=== PATIENT | male | born 1950 | race Caucasian/White ===

== ENCOUNTER 2018-01-02 21:48 | Inpatient (IN) | payer OTHER, MEDICARE ==
[~2018-01-02] VITALS: Ht 175.3 cm; Wt 93.3 kg
[2018-01-02 22:38] VITALS: BP 110/74; PULSE 112; RESP 18; TEMP 97.4; O2SAT 98
[2018-01-02 23:04] VITALS: BP 154/85; PULSE 99; RESP 18; O2SAT 100
--- NOTE | 2018-01-02 23:05 | PD ---
HPI Chief Complaint: General Weakness Time Seen by Provider: 22:54 Travel History International Travel<30 days: No Contact w/Intl Traveler<30days: No Traveled to known affect area: No History of Present Illness HPI The patient is a 67 year old male who presents to the [facility] emergency department with a history of lower extremity numbness and weakness that began on Wednesday. The patient reports a recent history of having a prostate biopsy due to an elevated PSA of 7, 6 days ago, on Wednesday by Dr. Juarez. The patient reports that he did well after the procedure and Wednesday was able to go to work , however Wednesday he began to have chills and fever with a T-max of 101. He reports that on the chills and fever became worse and then he developed the pain in the left side of his low back. On he saw his primary care physician's office and was treated for back pain with a muscle relaxer injection and a pain injection and discharged home with Flexeril. After starting the Flexeril he noticed the weakness in his legs and thought that it may be related to his muscle relaxer. Reports that in spite of stopping the Flexeril he continued to have worsening weakness and numbness. The patient reports that Wednesday he went back to his primary care physician and was told that it could be related to an infectious process and was started on Cipro. Today, the patient fell in the shower due to his weakness in his legs and went to [facility]. The patient was given a lidocaine patch to the left side of his low back, an IM injection of Decadron, Toradol, and morphine and Ativan orally for anxiety. The patient reports that he was then discharged. His partner who is providing most of his history he reports that he got home and then fell again in the driveway as he is unable to walk. The patient reports that he has not been able to urinate since 6 AM. He reports having a diminished appetite and decreased p.o. fluid intake over the last day. He denies having any diarrhea. He reports that he moved his bowels in small amount earlier today. He denies having any incontinence of his bowels. He denies having any incontinence of urine. On review of systems otherwise, the patient denies having any worsening cough or congestion, neck pain, chest pain, abdominal pain, weakness in his arms, numbness or tingling in his arms, facial droop, headache, dizziness, or difficulty with word finding ability. PFSH Past Medical History Narrative Medical The patient's past medical history is significant for benign prostatic hypertrophy, elevated PSA, hypothyroid disorder, depression, history of kidney stones. Depression: Yes Diminished Hearing: No Genitourinary: Yes (BPH) Thyroid Disease: Yes (hypothyiodism) Tetanus Vaccination: Unknown Influenza Vaccination: No Past Surgical History Narrative Surgical The patient's past surgical history is significant for a prostate biopsy, tonsillectomy, history of kidney surgery. Genitourinary Surgery: Yes (kidney surgery) Other Surgery: Yes (biopsy) Social History Alcohol Use: Yes (Occasional use) Tobacco Use: Yes (1 pack per day) Substance Use: No Allergies-Medications (Allergen,Severity, Reaction): Coded Allergies: No Known Allergies (Unverified , 01/02/18) Reported Meds & Prescriptions Reported Meds & Active Scripts Active Reported Hydrocodone-Acetaminophen 5-325 mg Tab 1 Tab PO Q4H PRN Tamsulosin (Tamsulosin HCl) 0.4 Mg Cap 0.4 Mg HS Meloxicam 7.5 Mg Tab 7.5 Mg PO BID Ciprofloxacin (Ciprofloxacin HCl) 500 Mg Tab 500 Mg PO BID Rosuvastatin (Rosuvastatin Calcium) 20 Mg Tab 20 Mg PO DAILY Medrol (Methylprednisolone) 4 Mg Tab 4 Mg PO DIRECTED Robaxin (Methocarbamol) 500 Mg Tab 500 Mg PO QID Review of Systems Except as stated in HPI: all other systems reviewed are Neg General / Constitutional: Positive: Fever, Chills Eyes: No: Visual changes HENT: No: Headaches Cardiovascular: No: Chest Pain or Discomfort Respiratory: No: Shortness of Breath Gastrointestinal: Positive: Constipation, No: Nausea, Vomiting, Diarrhea, Abdominal Pain Genitourinary: Positive: Decreased Urinary Output, Hesitancy, No: Dysuria Musculoskeletal: Positive: Myalgias, Pain Skin: No Rash Neurologic: Positive: Weakness (Bilateral leg), Sensory Disturbance, No: Focal Abnormalities, Change in Mentation, Slurred Speech Psychiatric: No: Depression Endocrine: No: Polydipsia Hematologic/Lymphatic: No: Easy Bruising Physical Exam Narrative General: The patient is a well-developed well-nourished male, uncomfortable appearing on arrival, tachypneic, reporting shortness of breath related to his back pain. Head and Neck exam: Head is normocephalic atraumatic. Eyes: EOMI, pupils are equal round and reactive to light. Nose: Midline septum with pink mucous membranes Mouth: Dentition unremarkable. Dry mucus membranes. Posterior oropharynx is not erythematous. No tonsillar hypertrophy. Uvula midline. Airway patent. Neck: No palpable lymphadenopathy. No nuchal rigidity. No thyromegaly. Cardiovascular: Sinus tachycardia in the low 100s without murmurs, gallops, or rubs. No pulse deficit to the extremities on simultaneous auscultation and palpation of his radial artery. Lungs: Clear to auscultation bilaterally. No wheezes, rhonchi, or rales. Abdomen: Soft, without tenderness to palpation in all 4 quadrants of the abdomen. No guarding, rebound, or rigidity. Normal bowel sounds are audible. No tenderness on palpation of McBurney's point. Negative Fisher sign. Extremities: No clubbing, cyanosis, or edema. 2+ pulses in all 4 extremities. Back: No spinous process tenderness to palpation. No step-off or crepitus. No erythema or ecchymosis. The patient reports tenderness on palpation along the left side of his sacrum. The patient has a patch in place which was removed. This was a lidocaine patch that was applied earlier this evening by [facility]. There is no underlying skin abnormality. No costovertebral angle tenderness to palpation. Neurologic Exam: Cranial nerves II through XII are intact, strength is 5/5 in bilateral upper extremities. Strength is 2/5 in bilateral lower extremities with only muscle contractures noted in bilateral quadriceps muscles. No deep tendon reflexes are elicited in bilateral lower extremities. The patient has no sensation noted with examination of his legs below the knees. Skin Exam: No rash noted. Intact skin that is warm and cool. The patient has mottled appearing skin of his lower extremities. The patient has poor skin turgor. Data Data Last Documented VS Vital Signs Date Time Temp Pulse Resp B/P (MAP) Pulse Ox O2 Delivery O2 Flow Rate FiO2 01/03/18 00:25 98.5 90 18 182/85 95 01/02/18 23:04 Room Air Orders Orders Electrocardiogram (01/02/18 23:02) Complete Blood Count With Diff (01/02/18 23:02) Comprehensive Metabolic Panel (01/02/18 23:02) Creatine Kinase (Cpk) (01/02/18 23:02) Ckmb (Isoenzyme) Profile (01/02/18 23:02) Troponin I (01/02/18 23:02) B-Type Natriuretic Peptide (01/02/18 23:02) Prothrombin Time / Inr (Pt) (01/02/18 23:02) Act Partial Throm Time (Ptt) (01/02/18 23:02) Blood Culture (01/02/18 23:02) C-Reactive Protein (Crp) (01/02/18 23:02) Lipase (01/02/18 23:02) Urinalysis - C+S If Indicated (01/02/18 23:) Westergren Sedimentation Rate (01/02/18 23:02) Magnesium (Mg) (01/02/18 23:02) Chest, Single Ap (01/02/18 23:02) Iv Access Insert/Monitor (01/02/18 23:02) Ecg Monitoring (01/02/18 23:02) Oximetry (01/02/18 23:02) Urinary Catheter Insert/Apply (01/02/18 23:02) Lactic Acid Sepsis Protocol (01/02/18 23:02) Ondansetron Inj (Zofran Inj) (01/02/18 23:24) Ondansetron Inj (Zofran Inj) (01/02/18 23:45) Sodium Chlor 0.9% 1000 Ml Inj (Ns 1000 M (01/02/18 23:45) Fibrinogen (01/02/18 23:45) Type And Screen (01/02/18 23:49) Blood Product Administration (01/02/18 23:49) CKMB (01/02/18 23:20) CKMB% (01/02/18 23:20) Urine Culture (01/02/18 23:35) Mri C Spine W/O Contrast (01/03/18 ) Mri T Spine W/O Contrast (01/03/18 ) Mri L Spine W/O Contrast (01/03/18 ) Sodium Chlor 0.9% 1000 Ml Inj (Ns 1000 M (01/03/18 01:45) Morphine Inj (Morphine Inj) (01/03/18 01:45) Admit Order (Ed Use Only) (01/03/18 01:54) Labs Laboratory Tests Test 01/02/18 23:20 01/02/18 23:35 01/03/18 01:40 01/03/18 01:42 White Blood Count 12.6 TH/MM3 Red Blood Count 4.89 MIL/MM3 Hemoglobin 15.8 GM/DL Hematocrit 44.6 % Mean Corpuscular Volume 91.3 FL Mean Corpuscular Hemoglobin 32.2 PG Mean Corpuscular Hemoglobin Concent 35.3 % Red Cell Distribution Width 13.5 % Platelet Count 18 TH/MM3 Mean Platelet Volume 8.9 FL CBC Comment AUTO DIFF Differential Total Cells Counted 100 Neutrophils % (Manual) 71 % Band Neutrophils % 19 % Lymphocytes % 4 % Monocytes % 4 % Neutrophils # (Manual) 11.6 TH/MM3 Metamyelocytes 2 % Differential Comment FINAL DIFF MANUAL Toxic Vacuolation PRESENT Platelet Estimate LOW Platelet Morphology Comment NORMAL Erythrocyte Sedimentation Rate 40 mm/hr Prothrombin Time 10.7 SEC Prothromb Time International Ratio 1.1 RATIO Activated Partial Thromboplast Time 24.5 SEC Blood Urea Nitrogen 69 MG/DL Creatinine 2.23 MG/DL Random Glucose 141 MG/DL Total Protein 9.3 GM/DL Albumin 2.7 GM/DL Calcium Level 9.3 MG/DL Magnesium Level 2.6 MG/DL Alkaline Phosphatase 321 U/L Aspartate Amino Transf (AST/SGOT) 61 U/L Alanine Aminotransferase (ALT/SGPT) 43 U/L Total Bilirubin 1.0 MG/DL Sodium Level 129 MEQ/L Potassium Level 3.7 MEQ/L Chloride Level 93 MEQ/L Carbon Dioxide Level 23.5 MEQ/L Anion Gap 13 MEQ/L Estimat Glomerular Filtration Rate 29 ML/MIN Lactic Acid Level 4.0 mmol/L 2.0 mmol/L Total Creatine Kinase 927 U/L Creatine Kinase MB 20.4 NG/ML Creatine Kinase MB % 2.2 % Troponin I LESS THAN 0.02 NG/ML C-Reactive Protein 33.30 MG/DL B-Type Natriuretic Peptide 44 PG/ML Lipase 112 U/L Urine Color YELLOW Urine Turbidity HAZY Urine pH 5.0 Urine Specific Levasy 1.017 Urine Protein 30 mg/dL Urine Glucose (UA) NEG mg/dL Urine Ketones NEG mg/dL Urine Occult Blood MOD Urine Nitrite NEG Urine Bilirubin NEG Urine Urobilinogen LESS THAN 2.0 MG/DL Urine Leukocyte Esterase MOD Urine RBC 2 /hpf Urine WBC 10 /hpf Urine Squamous Epithelial Cells <1 /hpf Urine Bacteria MOD /hpf Urine Hyaline Casts 30 /lpf Urine Granular Casts 26 /lpf Urine Mucus FEW /lpf Microscopic Urinalysis Comment CULTURE INDICATED Fibrinogen 750 mg/dL MDM Medical Decision Making Medical Screen Exam Complete: Yes Emergency Medical Condition: Yes Medical Record Reviewed: Yes Interpretation(s) Last Impressions Thoracic Spine MRI 01/03/18 0000 Signed Impressions: Service Date/Time: Wednesday, January 03, 2018 00:38 - CONCLUSION: Multilevel disc abnormalities. Severe canal stenosis at T2-3 and T5-6 with cord compression and mild signal changes in the cord at T2-3 and moderate signal changes within the cord at T5-6. Less severe changes at L2 additional levels as described. Harley Herrera MD Lumbar Spine MRI 01/03/18 0000 Signed Impressions: Service Date/Time: Wednesday, January 03, 2018 00:38 - CONCLUSION: Complete or near complete canal obliteration at L2-3, L3-4 and L4-5 with less severe compromise at L1-2 and T12-L1. Harley Herrera MD Cervical Spine MRI 01/03/18 0000 Signed Impressions: Service Date/Time: Wednesday, January 03, 2018 00:38 - CONCLUSION: Severe multilevel canal stenosis. Findings appear to be most critical at C4-5 and C5-6 where AP canal dimension is reduced to 4-5 mm, however also quite severe at C2-3 and C3-4. Harley Herrera MD Chest X-Ray 01/02/18 1664 Signed Impressions: Service Date/Time: Tuesday, January 02, 2018 23:11 - CONCLUSION: Mild basilar atelectasis or scarring. Harley Herrera MD Differential Diagnosis Epidural abscess with cord compression, versus epidural hematoma, versus discitis, versus cauda equina Narrative Course During the course of the patient's emergency department visit, the patient's history, examination, and differential diagnosis were reviewed with the patient. The patient was placed on a monitor and storage bin tender with oximetry and frequent blood pressure monitoring. The patient had IV access obtained and blood work sent for analysis. The patient had an EKG done on arrival that shows a sinus rhythm with a heart rate of 96, QRS duration is 113 ms, QTC [address] segment elevation is noted. A stat call was placed out to the neurosurgeon on-call at approximately 11:02 AM. I had previously ordered MRI of the T-spine and L-spine without contrast, however he recommended MRI of the T-spine, L- spine with and without contrast. Antibiotics at this point were held until further evaluation was done and possible operative care with culture. The patient has been on ciprofloxacin since Wednesday. The patient was initially provided normal saline 1 L IV fluid bolus which was repeated 1. Morphine for pain, Zofran for nausea. The patient's laboratory studies were reviewed and remarkable for a white count of 12.6, hemoglobin 15.8, platelets 18, neutrophils 71, bands 19. A platelet pheresis was ordered pending surgery. CMP is remarkable for sodium of 129, chloride 93, BUN 69, creatinine 2.23, glucose 141, magnesium 2.6, AST 61, alk phos 321. CPK is 927 with a normal MB percent, troponin I is less than 0.02. Lipase 112, C-reactive protein is elevated at 33.3, BNP is 44, lactic acid initially 4, repeat lactic acid is 2. PT PTT within normal limits, urinalysis shows moderate occult blood moderate leukocyte esterase 2 RBCs 10 WBCs, moderate bacteria, culture indicated. Given the patient's elevated creatinine, contrast MRI was canceled an MRI with out contrast was ordered. This was done through the MRI department. Radiology studies were reviewed and remarkable for a chest x-ray that shows mild basilar atelectasis or scarring. MRI of the C-spine shows severe multilevel canal stenosis findings appear to be most critical at C4-C5 C5-C6 where AP canal dimension is reduced to 4-5 mm however also quite severe at C2- C3 and C3-C4. T-spine MRI shows multilevel disc abnormalities severe canal stenosis at T2-3 T5-6 with cord compression and mild signal changes in the cord at T2-3 of moderate signal changes within the cord at T5-T6. Less severe changes at L2 additional levels as described in MRI. MRI of the lumbar spine reveals complete or near complete canal obliteration at L2-3 L3-L4 L4-L5 with less severe compromise at L 1 2 and T12-L1. I spoke to Dr. Chakraborty at 2:15 AM regarding this patient's MRI findings. He plans to take the patient emergently to the OR. The patient's case was discussed with Dr. Patton who did agree to admit the patient to the intensive care unit. The patient's results were discussed with the patient, including the plan of care. I explained that further testing and/ or monitoring is indicated based on the patient's history, examination, and/ or laboratory findings. Therefore, I recommended admission for additional evaluation. The patient expressed understanding and was agreeable with this plan. The patient was admitted to the hospital in critical condition and sent to a bed under the care of the radiation oncology therapist service. Critical Care Narrative Aggregate critical care time was 44 minutes. Time to perform other separately billable procedures was not included in the critical care time. My time did not include minutes spent treating any other patients simultaneously or on activities that did not directly contribute to the patient's treatment. The services I provided to this patient were to treat and/or prevent clinically significant deterioration that could result in: Progression of paralysis, versus respiratory failure from crystalloid resuscitation. I provided critical care services requiring my management, as noted below: Chart data review, documentation time, medication orders and management, vital sign assessments/reviewing monitor data, ordering and reviewing lab tests, ordering and interpreting/reviewing x-rays and diagnostic studies, care of the patient and discussion of the patient with the admitting physicians. Physician Communication Physician Communication The patient's case including history, pertinent physical examination findings, and laboratory studies were discussed with Dr. Chakraborty and Dr. Patton. It was agreed that the patient would be admitted to the radiation oncology therapist service. Diagnosis Primary Impression: Acute paraplegia Additional Impressions: Thrombocytopenia Acute renal failure Qualified Codes: N17.9 - Acute kidney failure, unspecified Urinary retention Admitting Information Admitting Physician Requests: Maryam Mathew MD Jan 02, 2018 23:05
[2018-01-02] MEDS ORDERED: TAMS0.4C4 (23:12)
[2018-01-02] MEDS ORDERED: HYDR-3516 PO (23:12)
[2018-01-02] MEDS ORDERED: MELO7.5T27 PO (23:12)
[2018-01-02] MEDS ORDERED: ROSU1TAB8 PO (23:12)
[2018-01-02] MEDS ORDERED: MEDR4TAB PO (23:12)
[2018-01-02] MEDS ORDERED: ROBA500T PO (23:12)
[2018-01-02] MEDS ORDERED: CIPR500T2 PO (23:12)
[2018-01-02] MEDS ORDERED: ONDANSETRON HCL 4 MG/2 ML VIAL ONE (23:24)
[2018-01-02 23:29] LABS: HEMATOCRIT 44.6 % (39.0-51.0); HEMOGLOBIN 15.8 GM/DL (13.0-17.0); MEAN CELL VOLUME 91.3 FL (80.0-100.0); MEAN CORPUSCULAR HEMOGLOBIN 32.2 PG (27.0-34.0); MEAN CORPUSCULAR HGB CONC 35.3 % (32.0-36.0); MEAN PLATELET VOLUME 8.9 FL (7.0-11.0); RED BLOOD COUNT 4.89 MIL/MM3 (4.50-5.90); RED CELL DISTRIBUTION WIDTH 13.5 % (11.6-17.2); WHITE BLOOD COUNT 12.6 TH/MM3 (4.0-11.0)
--- NOTE | 2018-01-02 23:34 | RADRPT ---
EXAM DATE/TIME: 01/02/2018 23:11 [facility] COMPARISON: No previous studies available for comparison. INDICATIONS : Weakness,fever, and back pain. MEDICAL HISTORY : None. SURGICAL HISTORY : None. ENCOUNTER: Initial ACUITY: 1 day PAIN SCORE: 0/10 LOCATION: Bilateral chest FINDINGS: There is slight asymmetric elevation left diaphragm. Mild atelectasis or scarring at the left lung ba se. Cardiac contours are grossly satisfactory for technique and projection. No significant effusion s uspected. Mild gaseous distention of bowel, mainly in the left upper quadrant. CONCLUSION: Mild basilar atelectasis or scarring. Hraley Herrera MD on January 02, 2018 at 23:31 Board Certified Radiologist. This report was verified electronically.
[2018-01-02 23:40] LABS: INTERNATIONAL NORMALIZED RATIO 1.1 RATIO; PROTHROMBIN TIME - PATIENT 10.7 SEC (9.8-11.6)
[2018-01-02 23:45] LABS: PLATELET COUNT 18 TH/MM3 (150-450)
[2018-01-02] MEDS ORDERED: SODIUM CHLOR 0.9% 1000 ML INJ 1,000 ML IV ONE (23:45)
[2018-01-02] MEDS ORDERED: ONDANSETRON HCL 4 MG/2 ML VIAL IV ONE (23:45)
[2018-01-02 23:57] LABS: ALBUMIN 2.7 GM/DL (3.4-5.0); ALT (GPT) 43 U/L (12-78); AST (GOT) 61 U/L (15-37); BICARBONATE 23.5 MEQ/L (21.0-32.0); BLOOD UREA NITROGEN 69 MG/DL (7-18); CALCIUM 9.3 MG/DL (8.5-10.1); CHLORIDE 93 MEQ/L (98-107); CREATININE 2.23 MG/DL (0.60-1.30); GLOMERULAR FILTRATION RATE 29 ML/MIN (>89); GLUCOSE,RANDOM 141 MG/DL (74-106); MAGNESIUM 2.6 MG/DL (1.5-2.5); SODIUM (NA) 129 MEQ/L (136-145)
[2018-01-03] VITALS (11 sets, daily range): BP systolic 98–182; BP diastolic 56–96; PULSE 89–104; RESP 16–20; TEMP 97.9–99.8; O2SAT 94–100
[2018-01-03 00:05] LABS: ALKALINE PHOSPHATASE 321 U/L (45-117); TOTAL PROTEIN 9.3 GM/DL (6.4-8.2); TROPONIN I LESS THAN 0.02 NG/ML (0.02-0.05)
[2018-01-03 00:06] LABS: BACTERIA, URINE MOD /hpf; BILIRUBIN, URINE NEG (NEG); BLOOD, URINE MOD (NEG); GLUCOSE,URINE NEG (NEG); HYALINE CAST, URINE 30 /lpf (RARE); KETONE, URINE NEG (NEG); MUCUS URINE FEW /lpf (OCC); NITRITE,URINE NEG (NEG); SQUAMOUS EPITHELIAL CELL URINE <1 /hpf (0-5); URINE COLOR YELLOW (YELLW/STRAW); URINE LEUKOCYTE ESTERASE MOD (NEG)
[2018-01-03 01:12] LABS: BANDS 19 % (0-6); LYMPHOCYTES 4 % (9-44); METAMYELOCYTES 2 % (0-1); MONOCYTES 4 % (0-8); NEUTROPHIL # MANUAL DIFF 11.6 TH/MM3 (1.8-7.7); POLYS (SEG NEUTROPHILS) 71 % (16-70)
[2018-01-03 01:14] LABS: TOXIC VACUOLATION PRESENT (NONE SEEN)
--- NOTE | 2018-01-03 01:21 | RADRPT ---
EXAM DATE/TIME: 01/03/2018 00:38 [facility] COMPARISON: No previous studies available for comparison. INDICATIONS : Inability to ambulate. cord compression. MEDICAL HISTORY : Renal insufficiency. SURGICAL HISTORY : Tonsillectomy. Kidney surgery. ENCOUNTER: Initial ACUITY: 1 week PAIN SCORE: 0/10 LOCATION: [facility] TECHNIQUE: Multiplanar, multisequence MRI examination of the cervical spine was performed. FINDINGS: VERTEBRAE: Normal vertebral body height. Mild degenerative-type marrow signal changes.. ALIGNMENT: No evidence of subluxation. CORD: Normal configuration and signal. POST FOSSA: The cerebellar tonsils are normal in position. C2-C3: Broad dorsal disc protrusion. Dorsal ligamentous hypertrophy. Severe concentric canal stenosis. C3-C4: Broad dorsal disc protrusion, moderately asymmetric to the right with dorsal ligament is hypertrophie d. Severe concentric canal stenosis and severe asymmetrically right-sided foraminal stenosis. C4-C5: Broad dorsal disc protrusion. Dorsal ligament is hypertrophied. Cortical concentric canal stenosis an d bilateral foraminal stenosis. C5-C6: Broad dorsal disc protrusion. Dorsal ligament is hypertrophied. Severe concentric canal stenosis and severe bilateral foraminal stenosis. C6-C7: Broad dorsal disc protrusion. Mild dorsal ligament is hypertrophied. Slight degree of concentric tylor l stenosis. Moderate asymmetrically right-sided foraminal stenosis. C7-T1: Mild dorsal disc protrusion. Moderate dorsal ligamentous hypertrophy. Mild concentric canal stenosis. CONCLUSION: Severe multilevel canal stenosis. Findings appear to be most critical at C4-5 and C5-6 where AP canal dimension is reduced to 4-5 mm, however also quite severe at C2-3 and C3-4. Harley Herrera MD on January 03, 2018 at 1:14 Board Certified Radiologist. This report was verified electronically.
--- NOTE | 2018-01-03 01:30 | RADRPT ---
EXAM DATE/TIME: 01/03/2018 00:38 [facility] COMPARISON: No previous studies available for comparison. INDICATIONS : Inability to ambulate. cord compression. MEDICAL HISTORY : Renal insufficiency. SURGICAL HISTORY : Tonsillectomy. Kidney surgery. ENCOUNTER: Initial ACUITY: 1 week PAIN SCORE: 0/10 LOCATION: Paraspinal TECHNIQUE: Multiplanar multisequence MRI of the thoracic spine was performed. FINDINGS: VERTEBRA: Normal vertebral body height. Homogeneous marrow signal. ALIGNMENT: Normal. CORD: Multilevel compressive abnormalities with signal changes as will be discussed below T1-T2: Normal. T2-T3: Broad dorsal disc protrusion with moderate superimposed dorsal ligamentous hypertrophy. There is jaswinder re concentric canal stenosis with cord compression and early signal changes in the cord. T3-T4: Slight broad dorsal disc protrusion. T4-T5: Central disc protrusion moderately indenting ventral thecal sac. T5-T6: Broad moderate dorsal disc protrusion with moderate superimposed dorsal ligament hypertrophy contribu ting to severe concentric canal stenosis and cord compression. Moderate signal changes within the cor d. T6-T7: Broad central disc protrusion moderately indenting ventral thecal sac. T7-T8: Minimal broad dorsal disc protrusion. Slight dorsal ligament hypertrophy. T8-T9: Moderate broad central disc protrusion moderately indenting ventral thecal sac. T9-T10: Mild broad dorsal disc protrusion. T10-T11: The thecal sac has a normal diameter. No evidence of disc bulge or protrusion. T11-T12: Minimal broad dorsal disc protrusion, slightly asymmetric to the right T12-L1: Annular disc bulge with moderate broad superimposed dorsal disc protrusion with extrusion component e xtending inferiorly along the posterior aspect of L1. Moderate canal stenosis. CONCLUSION: Multilevel disc abnormalities. Severe canal stenosis at T2-3 and T5-6 with cord compression and mild signal changes in the cord at T2-3 and moderate signal changes within the cord at T5-6. Less severe c hanges at L2 additional levels as described. Harley Herrera MD on January 03, 2018 at 1:23 Board Certified Radiologist. This report was verified electronically.
--- NOTE | 2018-01-03 01:41 | RADRPT ---
EXAM DATE/TIME: 01/03/2018 00:38 [facility] COMPARISON: No previous studies available for comparison. INDICATIONS : Inability to ambulate. Cord compression. MEDICAL HISTORY : SURGICAL HISTORY : Tonsillectomy. Kidney surgery. ENCOUNTER: Initial ACUITY: 1 week PAIN SCORE: 0/10 LOCATION: Paraspinal TECHNIQUE: Multiplanar multisequence MRI of the lumbar spine was performed without contrast. FINDINGS: The most caudal appearing lumbar vertebra is numbered as L5. VERTEBRAE: Degenerative type marrow signal changes prominently present throughout.. Normal alignment. CONUS: Normal level and configuration. T12-L1: A annular disc bulge with broad undulating dorsal disc protrusion reason moderate canal stenosis. For jonh appear adequate. L1-L2: Annular disc bulge with broad moderate superimposed dorsal disc protrusion. Moderate dorsal ligament hypertrophy contribute to severe canal stenosis and asymmetrically right-sided foraminal stenosis. L2-L3: Annular disc bulge and brought superimposed dorsal disc protrusion area in visualization CSF signal i s obliterated. Severe bilateral foraminal stenosis. L3-L4: Annular disc bulge with broad superimposed dorsal disc protrusion. Dorsal ligaments I perched the con tribute to severe canal stenosis. Severe bilateral foraminal stenosis. L4-L5: Annular disc bulge with broad superimposed dorsal disc protrusion. Severe dorsal ligaments hypertroph y and facet hypertrophy contributing to severe concentric canal stenosis and severe asymmetrically ri ght-sided foraminal stenosis. L5-S1: The thecal sac has a normal diameter. No evidence of disc bulge or protrusion. The neural foramina are patent bilaterally. CONCLUSION: Complete or near complete canal obliteration at L2-3, L3-4 and L4-5 with less severe compromise at L1 -2 and T12-L1. Harley Herrera MD on January 03, 2018 at 1:34 Board Certified Radiologist. This report was verified electronically.
[2018-01-03] MEDS ORDERED: MORPHINE SULFATE 4 MG/ML INJ IV PUSH ONE (01:45)
[2018-01-03] MEDS ORDERED: SODIUM CHLOR 0.9% 1000 ML INJ 1,000 ML IV ONE (01:45)
[2018-01-03] MEDS ORDERED: LIDOCAINE 1%/EPINEPHrine 1:100,000 SOLN 30 ML VIAL ONE (02:50)
[2018-01-03] MEDS ORDERED: THROMBIN (TOPICAL) 5,000 UNIT VIAL ONE (02:50)
[2018-01-03] MEDS ORDERED: GELFOAM SIZE 100 ONE (02:51)
[2018-01-03] MEDS ORDERED: BUPIVACAINE HCL PF 0.25% 30 ML VIAL ONE ×2 (02:51→03:29)
[2018-01-03] MEDS ORDERED: GENTAMICIN SULFATE 80 MG/2 ML VIAL ONE (02:51)
[2018-01-03] MEDS ORDERED: BUPIVACAINE/EPINEPHRINE 0.5% PF 30 ML VIAL ONE (02:56)
--- NOTE | 2018-01-03 04:39 | HHI.HP ---
HPI Service Neurosurgery Primary Care Physician Jamin Latif MD History of Present Illness 67-year-old male who underwent a prostate biopsy one week ago, on 12/27/17. He states that on the evening of 12/29/17 on into the morning of 12/30/17, he developed fever and chills, low back pain, and lower extremity numbness and paresthesias and muscle spasm. He was seen by his primary care physician and was given medication including muscle relaxant. The symptoms persisted and he returned to his primary care physician on Wednesday , 01/01/18 and was given additional medications including Cipro. He awoke on 01/02/2018 with increased lower extremity weakness and numbness, and fell in the shower in the morning, after which he was unable to ambulate or lift his legs off the bed, and continued to experience pain in the lower back. He went to the emergency room at [facility], and was given additional medication injections. He states that he could not lift his legs off the bed or ambulate in the emergency room, and was taken out to his car and lifted into the car and sent home again. He fell in the driveway again trying to get back into the house. He apparently did not urinate for the entire day. He has no complaint of pain which is numbness paresthesias in the upper extremities. No numbness or paresthesias over the chest or abdomen or pelvic region. Review of Systems Constitutional: COMPLAINS OF: Fatigue, Fever, Chills Eyes: DENIES: Blurred vision Ears, nose, mouth, throat: DENIES: Vertigo, Throat pain Respiratory: DENIES: Cough Cardiovascular: DENIES: Chest pain, Palpitations Gastrointestinal: COMPLAINS OF: Constipation, DENIES: Abdominal pain, Diarrhea , Nausea Musculoskeletal: COMPLAINS OF: Muscle aches, Stiffness, Back pain, Neck pain, DENIES: Joint pain Neurologic: COMPLAINS OF: Abnormal gait, Paresthesias, DENIES: Headache Psychiatric: COMPLAINS OF: Anxiety Past Family Social History Allergies: Coded Allergies: No Known Allergies (Unverified , 01/02/18) Past Medical History No history of significant cardiac pulmonary gastrointestinal disease. History of prostate hypertrophy Hypothyroidism Depression Past Surgical History Tonsillectomy Prostate biopsy Kidney surgery Reported Medications Reported Meds & Active Scripts Active Reported Hydrocodone-Acetaminophen 5-325 mg Tab 1 Tab PO Q4H PRN Tamsulosin (Tamsulosin HCl) 0.4 Mg Cap 0.4 Mg HS Meloxicam 7.5 Mg Tab 7.5 Mg PO BID Ciprofloxacin (Ciprofloxacin HCl) 500 Mg Tab 500 Mg PO BID Rosuvastatin (Rosuvastatin Calcium) 20 Mg Tab 20 Mg PO DAILY Medrol (Methylprednisolone) 4 Mg Tab 4 Mg PO DIRECTED Robaxin (Methocarbamol) 500 Mg Tab 500 Mg PO QID Family History History father from "bone cancer" Social History He smokes 1 pack cigarettes a day Occasional alcohol No illicit drugs Physical Exam Vital Signs Vital Signs Date Time Temp Pulse Resp B/P (MAP) Pulse Ox O2 Delivery O2 Flow Rate FiO2 01/03/18 03:14 89 20 165/82 (109) 99 Room Air 01/03/18 00:25 98.5 90 18 182/85 95 01/03/18 00:10 97.9 91 18 161/96 99 01/02/18 23:04 99 18 154/85 (108) 100 Room Air 01/02/18 23:04 103 19 98 Room Air 01/02/18 22:38 97.4 112 18 110/74 (86) 98 Physical Exam GENERAL: Somewhat cachectic appearing male. SKIN: Decreased skin turgor. No significant rash HEAD: Atraumatic. Normocephalic. No temporal or scalp tenderness. EYES: Sclerae are clear and nonicteric ENT: No facial edema or ecchymosis. No periorbital edema. NECK: Trachea midline. Minimal cervical spine tenderness, which he states is chronic. CARDIOVASCULAR: Regular rate and rhythm without murmurs, gallops, or rubs. RESPIRATORY: Clear to auscultation. Breath sounds equal bilaterally. No wheezes , rales, or rhonchi. GASTROINTESTINAL: Abdomen soft, non-tender, nondistended. No hepato-splenomegaly , or palpable masses. No guarding. MUSCULOSKELETAL: Extremities without cyanosis, or edema. No joint tenderness, or edema noted. No calf tenderness. Dorsalis pedis pulses 2+ bilateral NEUROLOGICAL: Awake and alert Oriented X 3 Speech is clear Conversant and appropriate Follow simple commands well Answers questions appropriately Reasonable judgment and insight Recent and remote memory are intact Appears somewhat depressed, blunted affect. Pupils are equal and reactive to accommodation. Extra-ocular movements, visual pederson to confrontation, facial sensorimotor, tongue, palate, sternocleidomastoid testing, hearing to finger rub testing, and bilateral shoulder shrug are all intact. Sensation is intact to light touch in the upper extremities. He has mild to moderate loss of sensation in the mid to upper thighs diffuse, with absent sensation diffuse to light touch in the distal lower extremities. Motor testing in the upper extremities reveals 4+/5 deltoids and biceps with 4 right, 2+ left triceps, 4 right, 3 left wrist flexors and extensors, 3+ bilateral hand intrinsics and abductor digiti quinti minimi. In the lower extremities motor testing reveals 1-to/5 iliopsoas, 1/5 quadriceps and hamstrings, absent tibialis anterior and gastrocsoleus bilateral Luanne's absent bilaterally No ankle clonus Plantar responses absent bilateral Fine motor movements intact upper extremities Laboratory Laboratory Tests Test 01/02/18 23:20 01/02/18 23:35 01/03/18 01:40 01/03/18 01:42 White Blood Count 12.6 Red Blood Count 4.89 Hemoglobin 15.8 Hematocrit 44.6 Mean Corpuscular Volume 91.3 Mean Corpuscular Hemoglobin 32.2 Mean Corpuscular Hemoglobin Concent 35.3 Red Cell Distribution Width 13.5 Platelet Count 18 Mean Platelet Volume 8.9 CBC Comment AUTO DIFF Differential Total Cells Counted 100 Neutrophils % (Manual) 71 Band Neutrophils % 19 Lymphocytes % 4 Monocytes % 4 Neutrophils # (Manual) 11.6 Metamyelocytes 2 Differential Comment FINAL DIFF MANUAL Toxic Vacuolation PRESENT Platelet Estimate LOW Platelet Morphology Comment NORMAL Erythrocyte Sedimentation Rate 40 Prothrombin Time 10.7 Prothromb Time International Ratio 1.1 Activated Partial Thromboplast Time 24.5 Blood Urea Nitrogen 69 Creatinine 2.23 Random Glucose 141 Total Protein 9.3 Albumin 2.7 Calcium Level 9.3 Magnesium Level 2.6 Alkaline Phosphatase 321 Aspartate Amino Transf (AST/SGOT) 61 Alanine Aminotransferase (ALT/SGPT) 43 Total Bilirubin 1.0 Sodium Level 129 Potassium Level 3.7 Chloride Level 93 Carbon Dioxide Level 23.5 Anion Gap 13 Estimat Glomerular Filtration Rate 29 Lactic Acid Level 4.0 2.0 Total Creatine Kinase 927 Creatine Kinase MB 20.4 Creatine Kinase MB % 2.2 Troponin I LESS THAN 0.02 C-Reactive Protein 33.30 B-Type Natriuretic Peptide 44 Lipase 112 Urine Color YELLOW Urine Turbidity HAZY Urine pH 5.0 Urine Specific [place] 1.017 Urine Protein 30 Urine Glucose (UA) NEG Urine Ketones NEG Urine Occult Blood MOD Urine Nitrite NEG Urine Bilirubin NEG Urine Urobilinogen LESS THAN 2.0 Urine Leukocyte Esterase MOD Urine RBC 2 Urine WBC 10 Urine Squamous Epithelial Cells <1 Urine Bacteria MOD Urine Hyaline Casts 30 Urine Granular Casts 26 Urine Mucus FEW Microscopic Urinalysis Comment CULTURE INDICATED Fibrinogen 750 Test 01/03/18 02:25 Platelet Count 28 Date/Time Source Procedure Growth Status 01/02/18 23:20 Blood Peripheral Aerobic Blood Culture Pending Received 01/02/18 23:20 Blood Peripheral Anaerobic Blood Culture Pending Received 01/02/18 23:35 Urine Clean Catch Urine Culture Pending Received Result Diagram: 01/03/185 01/02/182319 Imaging Cervical thoracic and lumbar spine MRI images are reviewed. Agree with findings as noted below. Thoracic Spine MRI 01/03/18 0000 Signed Impressions: Service Date/Time: Wednesday, January 03, 2018 00:38 - CONCLUSION: Multilevel disc abnormalities. Severe canal stenosis at T2-3 and T5-6 with cord compression and mild signal changes in the cord at T2-3 and moderate signal changes within the cord at T5-6. Less severe changes at L2 additional levels as described. Harley Herrera MD Lumbar Spine MRI 01/03/18 0000 Signed Impressions: Service Date/Time: Wednesday, January 03, 2018 00:38 - CONCLUSION: Complete or near complete canal obliteration at L2-3, L3-4 and L4-5 with less severe compromise at L1-2 and T12-L1. Harley Herrera MD Cervical Spine MRI 01/03/18 0000 Signed Impressions: Service Date/Time: Wednesday, January 03, 2018 00:38 - CONCLUSION: Severe multilevel canal stenosis. Findings appear to be most critical at C4-5 and C5-6 where AP canal dimension is reduced to 4-5 mm, however also quite severe at C2-3 and C3-4. Harley Herrera MD Chest X-Ray 01/02/18 [id number] Signed Impressions: Service Date/Time: Tuesday, January 02, 2018 23:11 - CONCLUSION: Mild basilar atelectasis or scarring. MD Gualberto Underwood VTE Risk Assessment Caprini VTE Risk Assessment: Mod/High Risk (score >= 2) VTE Pharm Contraindication: Spinal surgery Caprini Risk Assessment Model Point Value = 1 Point Value = 2 Point Value = 3 Point Value = 5 Age 41-60 Minor surgery BMI > 25 kg/m2 Swollen legs Varicose veins or History of unexplained or recurrent spontaneous Oral contraceptives or hormone replacement Sepsis (< 1 month) Serious lung disease, including pneumonia (< 1 month) Abnormal pulmonary function Acute myocardial infarction Congestive heart failure (< 1 month) History of inflammatory bowel disease Medical patient at bed rest Age 61-74 Arthroscopic surgery Major open surgery (> 45 min) Laparoscopic surgery (> 45 min) Malignancy Confined to bed (> 72 hours) Immobilizing plaster cast Central venous access Age >= 75 History of VTE Family history of VTE Factor V Leiden Prothrombin [id number] Lupus anticoagulant Anticardiolipin antibodies Elevated serum homocysteine Heparin-induced thrombocytopenia Other congenital or acquired thrombophilia Stroke (< 1 month) Elective arthroplasty Hip, pelvis, or leg fracture Acute spinal cord injury (< 1 month) Prophylaxis Regimen Total Risk Factor Score Risk Level Prophylaxis Regimen 0-1 Low Early ambulation 2 Moderate Order ONE of the following: *Sequential Compression Device (SCD) *Heparin 5000 units SQ BID 3-4 Higher Order ONE of the following medications: *Heparin 5000 units SQ TID *Enoxaparin/Lovenox 40 mg SQ daily (WT < 150 kg, CrCl > 30 mL/min) *Enoxaparin/Lovenox 30 mg SQ daily (WT < 150 kg, CrCl > 10-29 mL/min) *Enoxaparin/Lovenox 30 mg SQ BID (WT < 150 kg, CrCl > 30 mL/min) AND/OR *Sequential Compression Device (SCD) 5 or more Highest Order ONE of the following medications: *Heparin 5000 units SQ TID (Preferred with Epidurals) *Enoxaparin/Lovenox 40 mg SQ daily (WT < 150 kg, CrCl > 30 mL/min) *Enoxaparin/Lovenox 30 mg SQ daily (WT < 150 kg, CrCl > 10-29 mL/min) *Enoxaparin/Lovenox 30 mg SQ BID (WT < 150 kg, CrCl > 30 mL/min) AND *Sequential Compression Device (SCD) Assessment and Plan Assessment and Plan Impression: 1. Severe progressive paraplegia. Although he has significant spinal stenosis in the cervical thoracic and lumbar region, his overall presentation and exam suggests that the lumbar stenosis is the immediate cause of his severe lower extremity deficit, positive cauda equina syndrome. 2. Possible sepsis 3. Acute kidney disease 4. Thrombocytopenia Plan: Findings were discussed at length with the patient and his partner His recommended he proceed on an urgent basis to surgery for lumbar spine laminectomy for decompression. I advised him that I cannot totally rule out a component of myelopathy from the cervical and thoracic cord compression. He also understands that even with spinal cord intraoperative monitoring that there is a chance of cervical and thoracic myelopathy progressing during surgery. The procedure of lumbar decompressive laminectomy has been discussed. Risks and possible complications fully explained I advised him that there is no guarantee of any recovery of function with surgery. He will be admitted to the intensive surgical care unit postoperatively with account advisor consult. Additional platelets in the perioperative period. Jerry Chakraborty MD Jan 03, 2018 04:39
[2018-01-03] MEDS ORDERED: SODIUM CHLORIDE 0.9% FLUSH 10 ML FLUSH IV FLUSH PRN (05:00)
[2018-01-03] MEDS ORDERED: CHLORHEXIDINE GLUCONATE 2 % 1 PACK (2 CLOTHS) TOP PRN (05:00)
[2018-01-03] MEDS ORDERED: ONDANSETRON HCL 4 MG/2 ML VIAL IV PUSH PRN (05:00)
[2018-01-03] MEDS ORDERED: MISCELLANEOUS NURSING INFORMATION XX SCH (05:00)
[2018-01-03] MEDS ORDERED: TEMAZEPAM 15 MG CAP PO PRN (05:00)
[2018-01-03] MEDS ORDERED: RESP: ALBUTEROL 2.5 MG/IPRATROPIUM 0.5 MG NEB (PRN) INH (05:00)
[2018-01-03] MEDS ORDERED: LACTULOSE SYRUP 20 GM/30 ML CUP PO PRN (05:00)
[2018-01-03] MEDS ORDERED: BISACODYL 10 MG SUPP RECTAL PRN (05:00)
[2018-01-03] MEDS ORDERED: SENNOSIDES 8.6 MG TAB PO PRN (05:00)
--- NOTE | 2018-01-03 05:10 | HHI.HP ---
[facility] Service Critical Care Medicine Primary Care Physician Jamin Latif MD Admission Diagnosis Cord Compression, Renal Failure, Thrombocytopenia Diagnosis: Travel History International Travel<30 Days: No Contact w/Intl Traveler <30 Da: No Traveled to Known Affected Are: No History of Present Illness 67-year-old male who underwent a prostate biopsy one week ago, on 12/27/17. On the evening of 12/29/17 he developed fever and chills, low back pain, and lower extremity numbness and paresthesias and muscle spasm. He was seen by his primary care physician and was given medication including muscle relaxant. The symptoms persisted and he returned to his primary care physician on Wednesday, and was given additional medications including Cipro. He awoke on 01/02/2018 with increased lower extremity weakness and numbness, and fell in the shower in the morning, after which he was unable to ambulate or lift his legs off the bed, and continued to experience pain in the lower back. He went to the emergency room at [facility], and was given additional medication injections. He could not lift his legs off the bed or ambulate in the emergency room, and was taken out to his car and lifted into the car and sent home again. He fell in the driveway again trying to get back into the house. He apparently did not urinate for the entire day. He has no complaint of pain which is numbness paresthesias in the upper extremities. No numbness or paresthesias over the chest or abdomen or pelvic region. The MRI of thoracic spine shows severe canal stenosis at T2-3 and T5-6 level with cord compressions, complete or near complete canal obliteration at L2 -3 L3-4 and severe multilevel canal stenosis of the C-spine. The patient is emergently taken to operating room by Dr. Chakraborty. Review of Systems Constitutional: COMPLAINS OF: Diaphoretic episodes, Fatigue, Fever, Chills, Dizziness, Night Sweats, DENIES: Weight gain, Weight loss, Change in appetite Endocrine: DENIES: Heat/cold intolerance, Polydipsia, Polyuria, Polyphagia Eyes: DENIES: Blurred vision, Diplopia, Eye inflammation, Eye pain, Vision loss , Photosensitivity, Double Vision Ears, nose, mouth, throat: DENIES: Tinnitus, Hearing loss, Vertigo, Nasal discharge, Oral lesions, Throat pain, Hoarseness, Ear Pain, Running Nose, Epistaxis, Sinus Pain, Toothache, Odynophagia Respiratory: DENIES: Apneas, Cough, Snoring, Wheezing, Hemoptysis, Sputum production, Shortness of breath Cardiovascular: DENIES: Chest pain, Palpitations, Syncope, Dyspnea on Exertion , PND, Lower Extremity Edema, Orthopnea, Claudication Gastrointestinal: DENIES: Abdominal pain, Black stools, Bloody stools, Constipation, Diarrhea, Nausea, Vomiting, Difficulty Swallowing, Anorexia Genitourinary: DENIES: Sexual dysfunction, Urinary frequency, Urinary incontinence, Urgency, Hematuria, Dysuria, Nocturia, Penile Discharge, Testicular Pain, Testicular Swelling Musculoskeletal: COMPLAINS OF: Joint pain, Muscle aches, DENIES: Stiffness, Joint Swelling, Back pain, Neck pain Integumentary: DENIES: Abnormal pigmentation, Nail changes, Pruritus, Rash Hematologic/lymphatic: DENIES: Bruising, Lymphadenopathy Immunologic/allergic: DENIES: Eczema, Urticaria Neurologic: COMPLAINS OF: Abnormal gait, Localized weakness, Paresthesias, Poor Balance, DENIES: Headache, Seizures, Speech Problems, Tremor Psychiatric: DENIES: Anxiety, Confusion, Mood changes, Depression, Hallucinations, Agitation, Suicidal Ideation, Homicidal Ideation, Delusions Past Family Social History Allergies: Coded Allergies: No Known Allergies (Unverified , 01/02/18) Past Medical History Depression: Yes Genitourinary: Yes (BPH) Thyroid Disease: Yes (hypothyiodism) Past Surgical History The patient's past surgical history is significant for a prostate biopsy, tonsillectomy, history of kidney surgery. Genitourinary Surgery: Yes (kidney surgery) Other Surgery: Yes (biopsy) Reported Medications Reported Meds & Active Scripts Active Reported Hydrocodone-Acetaminophen 5-325 mg Tab 1 Tab PO Q4H PRN Tamsulosin (Tamsulosin HCl) 0.4 Mg Cap 0.4 Mg HS Meloxicam 7.5 Mg Tab 7.5 Mg PO BID Ciprofloxacin (Ciprofloxacin HCl) 500 Mg Tab 500 Mg PO BID Rosuvastatin (Rosuvastatin Calcium) 20 Mg Tab 20 Mg PO DAILY Medrol (Methylprednisolone) 4 Mg Tab 4 Mg PO DIRECTED Robaxin (Methocarbamol) 500 Mg Tab 500 Mg PO QID Active Ordered Medications Current Medications Medications (Trade) Dose Ordered Sig/Kaveh Route PRN Reason Start Time Stop Time Status Last Admin Dose Admin Methocarbamol (Robaxin) 500 mg QID PO 01/03/18 09:00 Tamsulosin HCl (Flomax) 0.4 mg HS PO 01/03/18 21:00 Atorvastatin Calcium (Lipitor) 40 mg DAILY PO 01/03/18 09:00 Sodium Chloride 1,000 ml @ 84 mls/hr [id number] IV 01/03/18 04:50 Sodium Chloride (NS Flush) 2 ml UNSCH PRN IV FLUSH FLUSH AFTER USING IV ACCESS 01/03/18 05:00 Sodium Chloride (NS Flush) 2 ml BID IV FLUSH 01/03/18 09:00 Acetaminophen (Tylenol) 650 mg Q6H PRN PO PAIN 1-5 AND/OR FEVER >101F 01/03/18 05:00 Morphine Sulfate (Morphine Inj) 2 mg Q2H PRN IV PUSH PAIN SCALE 6 TO 10 01/03/18 05:00 Famotidine (Pepcid Inj) 20 mg Q12HR IV PUSH 01/03/18 09:00 UNV Ondansetron HCl (Zofran Inj) 4 mg Q6H PRN IV PUSH NAUSEA OR VOMITING 01/03/18 05:00 UNV Temazepam (Restoril) 15 mg HS PRN PO INSOMNIA 01/03/18 05:00 UNV Albuterol/ Ipratropium (Duoneb Neb) 1 ampule Q2HR NEB PRN INH WHEEZING 01/03/18 05:00 UNV Enoxaparin Sodium (Lovenox Inj) 40 mg Q24H SQ 01/03/18 05:00 UNV Miscellaneous Information 1 [id number] XX 01/03/18 05:00 UNV Chlorhexidine Gluconate (Chlorhexidine 2% Cloth) 3 pack Taper DAILY@04 TOP 01/04/18 04:00 12/31/18 03:59 UNV Chlorhexidine Gluconate (Chlorhexidine 2% Cloth) 3 pack UNSCH PRN TOP HYGIENIC CARE 01/03/18 05:00 UNV Senna/Docusate Sodium (Roxana-Colace) 1 tab BID PO 01/03/18 09:00 UNV Magnesium Hydroxide (Milk Of Magnesia Liq) 30 ml Q12H PRN PO Mild constipation 01/03/18 05:00 UNV Sennosides (Senokot) 17.2 mg Q12H PRN PO Moderate constipation 01/03/18 05:00 UNV Bisacodyl (Dulcolax Supp) 10 mg DAILY PRN RECTAL SEVERE CONSITIPATION 01/03/18 05:00 UNV Lactulose (Lactulose Liq) 30 ml DAILY PRN PO SEVERE CONSITIPATION 01/03/18 05:00 UNV Family History No family history significant of early coronary artery disease Social History Alcohol Use: Yes (Occasional use) Tobacco Use: Yes (1 pack per day) Substance Use: No Physical Exam Vital Signs Vital Signs Date Time Temp Pulse Resp B/P (MAP) Pulse Ox O2 Delivery O2 Flow Rate FiO2 01/03/18 03:14 89 20 165/82 (109) 99 Room Air 01/03/18 00:25 98.5 90 18 182/85 95 01/03/18 00:10 97.9 91 18 161/96 99 01/02/18 23:04 99 18 154/85 (108) 100 Room Air 01/02/18 23:04 103 19 98 Room Air 01/02/18 22:38 97.4 112 18 110/74 (86) 98 Physical Exam GENERAL: Well-nourished, well-developed patient. SKIN: Warm and dry. HEAD: Normocephalic. EYES: No scleral icterus. No injection or drainage. NECK: Supple, trachea midline. No JVD or lymphadenopathy. CARDIOVASCULAR: Regular rate and rhythm without murmurs, gallops, or rubs. RESPIRATORY: Breath sounds equal bilaterally. No accessory muscle use. GASTROINTESTINAL: Abdomen soft, non-tender, nondistended. MUSCULOSKELETAL: No cyanosis, or edema. BACK: No spinous process tenderness to palpation. No step-off or crepitus. No erythema or ecchymosis. The patient reports tenderness on palpation along the left side of his sacrum. The patient has a patch in place which was removed. This was a lidocaine patch that was applied earlier this evening by [facility]. There is no underlying skin abnormality. No costovertebral angle tenderness to palpation. NEURO EXAM: Cranial nerves II through XII are intact, strength is 5/5 in bilateral upper extremities. Strength is 2/5 in bilateral lower extremities with only muscle contractures noted in bilateral quadriceps muscles. No deep tendon reflexes are elicited in bilateral lower extremities. The patient has no sensation noted with examination of his legs below the knees. Laboratory Laboratory Tests Test 01/02/18 23:20 01/02/18 23:35 01/03/18 01:40 01/03/18 01:42 White Blood Count 12.6 Red Blood Count 4.89 Hemoglobin 15.8 Hematocrit 44.6 Mean Corpuscular Volume 91.3 Mean Corpuscular Hemoglobin 32.2 Mean Corpuscular Hemoglobin Concent 35.3 Red Cell Distribution Width 13.5 Platelet Count 18 Mean Platelet Volume 8.9 CBC Comment AUTO DIFF Differential Total Cells Counted 100 Neutrophils % (Manual) 71 Band Neutrophils % 19 Lymphocytes % 4 Monocytes % 4 Neutrophils # (Manual) 11.6 Metamyelocytes 2 Differential Comment FINAL DIFF MANUAL Toxic Vacuolation PRESENT Platelet Estimate LOW Platelet Morphology Comment NORMAL Erythrocyte Sedimentation Rate 40 Prothrombin Time 10.7 Prothromb Time International Ratio 1.1 Activated Partial Thromboplast Time 24.5 Blood Urea Nitrogen 69 Creatinine 2.23 Random Glucose 141 Total Protein 9.3 Albumin 2.7 Calcium Level 9.3 Magnesium Level 2.6 Alkaline Phosphatase 321 Aspartate Amino Transf (AST/SGOT) 61 Alanine Aminotransferase (ALT/SGPT) 43 Total Bilirubin 1.0 Sodium Level 129 Potassium Level 3.7 Chloride Level 93 Carbon Dioxide Level 23.5 Anion Gap 13 Estimat Glomerular Filtration Rate 29 Lactic Acid Level 4.0 2.0 Total Creatine Kinase 927 Creatine Kinase MB 20.4 Creatine Kinase MB % 2.2 Troponin I LESS THAN 0.02 C-Reactive Protein 33.30 B-Type Natriuretic Peptide 44 Lipase 112 Urine Color YELLOW Urine Turbidity HAZY Urine pH 5.0 Urine Specific [place] 1.017 Urine Protein 30 Urine Glucose (UA) NEG Urine Ketones NEG Urine Occult Blood MOD Urine Nitrite NEG Urine Bilirubin NEG Urine Urobilinogen LESS THAN 2.0 Urine Leukocyte Esterase MOD Urine RBC 2 Urine WBC 10 Urine Squamous Epithelial Cells <1 Urine Bacteria MOD Urine Hyaline Casts 30 Urine Granular Casts 26 Urine Mucus FEW Microscopic Urinalysis Comment CULTURE INDICATED Fibrinogen 750 Test 01/03/18 02:25 Platelet Count 28 Date/Time Source Procedure Growth Status 01/02/18 23:20 Blood Peripheral Aerobic Blood Culture Pending Received 01/02/18 23:20 Blood Peripheral Anaerobic Blood Culture Pending Received 01/02/18 23:35 Urine Clean Catch Urine Culture Pending Received Result Diagram: 01/03/185 01/02/18 2320 Imaging Last 24 hours Impressions Thoracic Spine MRI 01/03/18 0000 Signed Impressions: Service Date/Time: Wednesday, January 03, 2018 00:38 - CONCLUSION: Multilevel disc abnormalities. Severe canal stenosis at T2-3 and T5-6 with cord compression and mild signal changes in the cord at T2-3 and moderate signal changes within the cord at T5-6. Less severe changes at L2 additional levels as described. Harley Herrera MD Lumbar Spine MRI 01/03/18 Signed Impressions: Service Date/Time: Wednesday, January 03, 2018 00:38 - CONCLUSION: Complete or near complete canal obliteration at L2-3, L3-4 and L4-5 with less severe compromise at L1-2 and T12-L1. Harley Herrera MD Cervical Spine MRI 01/03/18 Signed Impressions: Service Date/Time: Wednesday, January 03, 2018 00:38 - CONCLUSION: Severe multilevel canal stenosis. Findings appear to be most critical at C4-5 and C5-6 where AP canal dimension is reduced to 4-5 mm, however also quite severe at C2-3 and C3-4. Harley Herrera MD Chest X-Ray 01/02/18 735 Signed Impressions: Service Date/Time: Tuesday, January 02, 2018 23:11 - CONCLUSION: Mild basilar atelectasis or scarring. MD Gualberto Underwood VTE Risk Assessment Gualberto VTE Risk Assessment: Mod/High Risk (score >= 2) VTE Pharm Contraindication: Spinal surgery Caprini Risk Assessment Model Point Value = 1 Point Value = 2 Point Value = 3 Point Value = 5 Age 41-60 Minor surgery BMI > 25 kg/m2 Swollen legs Varicose veins or History of unexplained or recurrent spontaneous Oral contraceptives or hormone replacement Sepsis (< 1 month) Serious lung disease, including pneumonia (< 1 month) Abnormal pulmonary function Acute myocardial infarction Congestive heart failure (< 1 month) History of inflammatory bowel disease Medical patient at bed rest Age 61-74 Arthroscopic surgery Major open surgery (> 45 min) Laparoscopic surgery (> 45 min) Malignancy Confined to bed (> 72 hours) Immobilizing plaster cast Central venous access Age >= 75 History of VTE Family history of VTE Factor V Leiden Prothrombin [id number] Lupus anticoagulant Anticardiolipin antibodies Elevated serum homocysteine Heparin-induced thrombocytopenia Other congenital or acquired thrombophilia Stroke (< 1 month) Elective arthroplasty Hip, pelvis, or leg fracture Acute spinal cord injury (< 1 month) Prophylaxis Regimen Total Risk Factor Score Risk Level Prophylaxis Regimen 0-1 Low Early ambulation 2 Moderate Order ONE of the following: *Sequential Compression Device (SCD) *Heparin 5000 units SQ BID 3-4 Higher Order ONE of the following medications: *Heparin 5000 units SQ TID *Enoxaparin/Lovenox 40 mg SQ daily (WT < 150 kg, CrCl > 30 mL/min) *Enoxaparin/Lovenox 30 mg SQ daily (WT < 150 kg, CrCl > 10-29 mL/min) *Enoxaparin/Lovenox 30 mg SQ BID (WT < 150 kg, CrCl > 30 mL/min) AND/OR *Sequential Compression Device (SCD) 5 or more Highest Order ONE of the following medications: *Heparin 5000 units SQ TID (Preferred with Epidurals) *Enoxaparin/Lovenox 40 mg SQ daily (WT < 150 kg, CrCl > 30 mL/min) *Enoxaparin/Lovenox 30 mg SQ daily (WT < 150 kg, CrCl > 10-29 mL/min) *Enoxaparin/Lovenox 30 mg SQ BID (WT < 150 kg, CrCl > 30 mL/min) AND *Sequential Compression Device (SCD) Assessment and Plan Assessment and Plan Spinal cord compression -Emergent decompression by neurosurgery -Admit to ICU -Neuro checks per unit protocol -PT and OT as tolerated -Further management per Dr. Chakraborty Hyponatremia -IV fluid hydration with normal saline BPH -Tamsulosin Acute kidney injury -Dehydration -Aggressive IV fluid resuscitation -Monitor creatinine and urine output and trend of electrolytes Severe thrombocytopenia -Transfuse platelets to keep count above 90 for neurosurgical procedure -Hematology oncology consultation Dyslipidemia -Atorvastatin DVT GI prophylaxis -Tests SCDs -Lovenox -Pepcid Critical Care: The total critical care time was 35 minutes. Time to perform other separately billable procedures was not included in the critical care time. Roger Patton MD Jan 03, 2018 5:10 am
[2018-01-03] MEDS ORDERED: ceFAZolin INJ 1,000 MG VIAL IV ONE ×2 (05:20→12:00)
[2018-01-03] MEDS ORDERED: ENOXAPARIN SODIUM 40 MG/0.4 ML SYRINGE SQ SCH (06:00)
[2018-01-03 07:40] LABS: HEMATOCRIT 29.3 % (39.0-51.0); HEMOGLOBIN 10.1 GM/DL (13.0-17.0); MEAN CELL VOLUME 90.9 FL (80.0-100.0); MEAN CORPUSCULAR HEMOGLOBIN 31.4 PG (27.0-34.0); MEAN CORPUSCULAR HGB CONC 34.5 % (32.0-36.0); MEAN PLATELET VOLUME 8.1 FL (7.0-11.0); PLATELET COUNT 67 TH/MM3 (150-450); RED BLOOD COUNT 3.22 MIL/MM3 (4.50-5.90); RED CELL DISTRIBUTION WIDTH 13.4 % (11.6-17.2); WHITE BLOOD COUNT 17.2 TH/MM3 (4.0-11.0)
[2018-01-03 07:54] LABS: INTERNATIONAL NORMALIZED RATIO 1.1 RATIO; PROTHROMBIN TIME - PATIENT 11.3 SEC (9.8-11.6)
--- NOTE | 2018-01-03 08:25 | EKG ---
Date Performed: 01/02/2018 Time Performed: 23:32:36 PTAGE: 67 years EKG: Sinus rhythm MODERATE INTRAVENTRICULAR CONDUCTION DELAY NONSPECIFIC T-WAVE ABNORMALITY BORDERLINE ECG NO PREVIOUS TRACING DOCTOR: Maira Calderon Interpretating Date/Time 01/03/2018 08:24:55
[2018-01-03] MEDS ORDERED: DEXAMETHASONE SOD PHOS 4 MG/ML VIAL ONE (08:27)
[2018-01-03 08:38] LABS: BANDS 13 % (0-6); LYMPHOCYTES 2 % (9-44); MONOCYTES 3 % (0-8); NEUTROPHIL # MANUAL DIFF 16.3 TH/MM3 (1.8-7.7); POLYS (SEG NEUTROPHILS) 82 % (16-70)
[2018-01-03 08:39] LABS: ACANTHOCYTES 1+ (NORMAL)
[2018-01-03] MEDS: SODIUM CHLORIDE 0.9% FLUSH 10 ML FLUSH IV FLUSH SCH ×2 (09:00→20:43)
[2018-01-03] MEDS: FAMOTIDINE 20 MG/2 ML VIAL IV PUSH SCH ×2 (09:00→20:43)
[2018-01-03] MEDS ORDERED: PROPOFOL 1000 MG/100 ML INJ 100 ML IV PRN (10:00)
[2018-01-03] MEDS ORDERED: RESP: ALBUTEROL 2.5 MG/3 ML NEB (PRN) NEB (10:00)
[2018-01-03] MEDS ORDERED: fentaNYL DRIP 250 ML IV PRN (10:00)
[2018-01-03] MEDS: METHOCARBAMOL 500 MG TAB PO SCH ×4 (10:00→20:43)
[2018-01-03] MEDS: DOCUSATE SODIUM 50 MG/SENNA 8.6 MG TAB PO SCH ×2 (10:00→20:37)
[2018-01-03] MEDS: ATORVASTATIN 40 MG TAB PO SCH (10:00)
[2018-01-03] MEDS ORDERED: MIDAZOLAM HCL 2 MG/2 ML VIAL ONE (10:17)
[2018-01-03] MEDS: SODIUM CHLOR 0.9% 1000 ML INJ 1,000 ML IV SCH ×2 (10:21→16:45)
[2018-01-03] MEDS ORDERED: Vancomycin Consult Pharmacy 1 EA OTHER SCH (11:00)
[2018-01-03] MEDS: RESP: ALBUTEROL 2.5 MG/IPRATROPIUM 0.5 MG NEB (SCH) NEB ×3 (11:27→21:47)
[2018-01-03] MEDS ORDERED: DEXAMETHASONE SOD PHOS 4 MG/ML VIAL IV ONE (12:00)
[2018-01-03] MEDS ORDERED: LIDOCAINE HCL 1% PF 5 ML SYRINGE OTHER ONE ×2 (12:00)
[2018-01-03] MEDS ORDERED: PHENYLEPH/NS 1000 MCG/10 ML SYR IV ONE (12:00)
[2018-01-03] MEDS ORDERED: PHENYLEPHRINE HCL 10 MG/ML VIAL IV ONE ×2 (12:00)
[2018-01-03] MEDS ORDERED: LACTATED RINGER'S 1000 ML INJ 1,000 ML IV ONE (12:00)
[2018-01-03] MEDS ORDERED: SODIUM CHLOR 0.9% 250 ML INJ 250 ML IV ONE (12:00)
[2018-01-03] MEDS ORDERED: ePHEDrine/NS 25 MG/5 ML SYRINGE IV ONE (12:00)
[2018-01-03] MEDS ORDERED: PROPOFOL 200 MG/20 ML AMP IV ONE ×2 (12:00)
[2018-01-03] MEDS ORDERED: ROCURONIUM INJ 50 MG/5 ML SYRINGE IV PUSH ONE (12:00)
[2018-01-03] MEDS ORDERED: NORMOSOL R INJ 1,000 ML IV ONE (12:00)
[2018-01-03] MEDS ORDERED: ONDANSETRON HCL 4 MG/2 ML VIAL IV PUSH ONE (12:00)
[2018-01-03] MEDS ORDERED: PHENYLEPHRINE HCL 10 MG/ML VIAL ONE (13:19)
[2018-01-03] MEDS: ARTIFICIAL TEARS OPTH SOLN 15 ML BTL EACH EYE SCH ×2 (14:00→20:43)
[2018-01-03] MEDS ORDERED: VANCOMYCIN INJ 1,500 MG in SODIUM CHLORID 0.9% 500 ML INJ 500 ML IV ONE (14:00)
--- NOTE | 2018-01-03 14:29 | PD.ID.CON ---
History of Present Illness Service ID Consult Requested By Reason for Consult Evaluation and Mment of Bacteremia possible Epidural abscess. Primary Care Physician Jamin Latif MD Diagnoses: History of Present Illness Most of the history was obtained by review of medical records. Mr. Reeves is a 67 y/o CM with history of BPH who underwent a prostate biopsy one week ago, on 12/27/17. On the evening of 12/29/17 he developed fever and chills, low back pain, and lower extremity numbness and paresthesias and muscle spasm. He was seen by his primary care physician and was given medication including muscle relaxant. The symptoms persisted and he returned to his primary care physician on 01/01/18 and was given additional medications including Cipro and medrol dose pack. On 01/02/2018 patient woke up with increased lower extremity weakness and numbness, and fell in the shower in the morning, after which he was unable to ambulate or lift his legs off the bed , and continued to experience pain in the lower back. He went to the emergency room at [facility], and was given additional medication injections. He could not lift his legs off the bed or ambulate in the emergency room, and was taken out to his car and lifted into the car and sent home again. He fell in the driveway again trying to get back into the house. He apparently did not urinate for the entire day. He has no complaint of pain which is numbness paresthesias in the upper extremities. Reportedly on admission there was no numbness or paresthesias over the chest or abdomen or pelvic region. The MRI of thoracic spine shows severe canal stenosis at T2-3 and T5-6 level with cord compressions, complete or near complete canal obliteration at L2-3 L3- 4 and severe multilevel canal stenosis of the C-spine. Entire spine including C spine shows areas of stenosis. Upon my discussion with patient had to be emergently taken to the OR for decompression. Intraop cultures were taken and no hardware placed at present time but it appears that patient will need more surgeries. The MRIs done were non contrast due to Acute renal failure on admission and cannot be repeated. Per my dw plan is to treat as epidural abscess stone since patient was treated for few days with antibiotics prior to arrival and also due to patient needing hardware placement which can be seeded. At the time of my evaluation patient is in ISC. Intubated, being weaned off sedation, UO is good peck in place. Not on any pressors. There is a plan to wean to extubate the patient per RN. ID consulted for evaluation and Mment of GN madonna bacteremia (E.coli CTX M negative) and possible epidural abscess. Review of Systems ROS Limitations: Intubated Past Family Social History Allergies: Coded Allergies: No Known Allergies (Unverified , 01/02/18) Past Medical History Depression BPH Hypothyroidism Past Surgical History Prostate biopsy, Tonsillectomy, history of kidney surgery. Prostate surgery Reported Medications Reported Meds & Active Scripts Active Reported Hydrocodone-Acetaminophen 5-325 mg Tab 1 Tab PO Q4H PRN Tamsulosin (Tamsulosin HCl) 0.4 Mg Cap 0.4 Mg HS Meloxicam 7.5 Mg Tab 7.5 Mg PO BID Ciprofloxacin (Ciprofloxacin HCl) 500 Mg Tab 500 Mg PO BID Rosuvastatin (Rosuvastatin Calcium) 20 Mg Tab 20 Mg PO DAILY Medrol (Methylprednisolone) 4 Mg Tab 4 Mg PO DIRECTED Robaxin (Methocarbamol) 500 Mg Tab 500 Mg PO QID Active Ordered Medications Current Medications Medications (Trade) Dose Ordered Sig/Kaveh Route Start Time Stop Time Status Last Admin (Robaxin) 500 mg QID PO 01/03/18 09:00 01/03/18 18:00 (Flomax) 0.4 mg HS PO 01/03/18 21:00 (Lipitor) 40 mg DAILY PO 01/03/18 09:00 Sodium Chloride 1,000 ml @ 84 mls/hr [id number] IV 01/03/18 04:50 01/03/18 10:21 (NS Flush) 2 ml UNSCH PRN IV FLUSH 01/03/18 05:00 (NS Flush) 2 ml BID IV FLUSH 01/03/18 09:00 (Tylenol) 650 mg Q6H PRN PO 01/03/18 05:00 (Morphine Inj) 2 mg Q2H PRN IV PUSH 01/03/18 05:00 (Pepcid Inj) 20 mg Q12HR IV PUSH 01/03/18 09:00 (Zofran Inj) 4 mg Q6H PRN IV PUSH 01/03/18 05:00 (Restoril) 15 mg HS PRN PO 01/03/18 05:00 Miscellaneous Information 1 [id number] XX 01/03/18 05:00 (Chlorhexidine 2% Cloth) 3 pack Taper DAILY@04 TOP 01/04/18 04:00 12/31/18 03:59 (Chlorhexidine 2% Cloth) 3 pack UNSCH PRN TOP 01/03/18 05:00 (Roxana-Colace) 1 tab BID PO 01/03/18 09:00 (Milk Of Magnesia Liq) 30 ml Q12H PRN PO 01/03/18 05:00 (Senokot) 17.2 mg Q12H PRN PO 01/03/18 05:00 (Dulcolax Supp) 10 mg DAILY PRN RECTAL 01/03/18 05:00 (Lactulose Liq) 30 ml DAILY PRN PO 01/03/18 05:00 (Peridex 0.12% Liq) 15 ml BID@08,20 MT 01/03/18 20:00 (Tears Naturale Opth Soln) 1 drop Q8HR EACH EYE 01/03/18 14:00 (Duoneb Neb) 1 ampule Q6HR NEB NEB 01/03/18 10:00 01/03/18 15:32 (Albuterol Neb) 2.5 mg Q2HR NEB PRN NEB 01/03/18 10:00 Pharmacy Profile Note 0 ml @ 0 mls/hr UNSCH OTHER 01/03/18 11:00 Cefepime HCl 2000 mg/Sodium Chloride 100 ml @ 200 mls/hr Q24H IV 01/03/18 15:00 01/03/18 19:17 Family History reviewed other MD notes: reportedly nothing significant. Social History reviewed other MD notes: reportedly nothing significant. Physical Exam Vital Signs Vital Signs Date Time Temp Pulse Resp B/P (MAP) Pulse Ox O2 Delivery O2 Flow Rate FiO2 01/03/18 13:08 98 35 01/03/18 12:00 98.6 104 18 98/56 (70) 98 Automatic Cuff 01/03/18 12:00 104 01/03/18 09:45 100 50 01/03/18 03:14 89 20 165/82 (109) 99 Room Air 01/03/18 00:25 98.5 90 18 182/85 95 01/03/18 00:10 97.9 91 18 161/96 99 01/02/18 23:04 99 18 154/85 (108) 100 Room Air 01/02/18 23:04 103 19 98 Room Air 01/02/18 22:38 97.4 112 18 110/74 (86) 98 Physical Exam GENERAL: This is a well-nourished, well-developed patient, in no apparent distress. SKIN: No rashes, ecchymoses or lesions. Cool and dry. HEAD: Atraumatic. Normocephalic. No temporal or scalp tenderness. EYES: Pupils equal round and reactive. No scleral icterus. No injection or drainage. ENT: Intubated. NECK: Trachea midline. Supple, nontender, no meningeal signs. CARDIOVASCULAR: HS audible. RESPIRATORY: Clear to auscultation. Breath sounds equal bilaterally. No wheezes , rales, or rhonchi. GASTROINTESTINAL: Abdomen soft, non-tender, nondistended. MUSCULOSKELETAL: Extremities without clubbing, cyanosis, or edema. NEUROLOGICAL: Opened eyes spontaneously. No response to painful stimuli in LE and UE on my exam. Psych could not be assessed. IV line sites with no e.o infection. Laboratory Laboratory Tests Test 01/02/18 23:20 01/02/18 23:35 01/03/18 01:40 01/03/18 01:42 White Blood Count 12.6 Red Blood Count 4.89 Hemoglobin 15.8 Hematocrit 44.6 Mean Corpuscular Volume 91.3 Mean Corpuscular Hemoglobin 32.2 Mean Corpuscular Hemoglobin Concent 35.3 Red Cell Distribution Width 13.5 Platelet Count 18 Mean Platelet Volume 8.9 CBC Comment AUTO DIFF Differential Total Cells Counted 100 Neutrophils % (Manual) 71 Band Neutrophils % 19 Lymphocytes % 4 Monocytes % 4 Neutrophils # (Manual) 11.6 Metamyelocytes 2 Differential Comment FINAL DIFF MANUAL Toxic Vacuolation PRESENT Platelet Estimate LOW Platelet Morphology Comment NORMAL Erythrocyte Sedimentation Rate 40 Prothrombin Time 10.7 Prothromb Time International Ratio 1.1 Activated Partial Thromboplast Time 24.5 Blood Urea Nitrogen 69 Creatinine 2.23 Random Glucose 141 Total Protein 9.3 Albumin 2.7 Calcium Level 9.3 Magnesium Level 2.6 Alkaline Phosphatase 321 Aspartate Amino Transf (AST/SGOT) 61 Alanine Aminotransferase (ALT/SGPT) 43 Total Bilirubin 1.0 Sodium Level 129 Potassium Level 3.7 Chloride Level 93 Carbon Dioxide Level 23.5 Anion Gap 13 Estimat Glomerular Filtration Rate 29 Lactic Acid Level 4.0 2.0 Total Creatine Kinase 927 Creatine Kinase MB 20.4 Creatine Kinase MB % 2.2 Troponin I LESS THAN 0.02 C-Reactive Protein 33.30 B-Type Natriuretic Peptide 44 Lipase 112 Urine Color YELLOW Urine Turbidity HAZY Urine pH 5.0 Urine Specific [place] 1.017 Urine Protein 30 Urine Glucose (UA) NEG Urine Ketones NEG Urine Occult Blood MOD Urine Nitrite NEG Urine Bilirubin NEG Urine Urobilinogen LESS THAN 2.0 Urine Leukocyte Esterase MOD Urine RBC 2 Urine WBC 10 Urine Squamous Epithelial Cells <1 Urine Bacteria MOD Urine Hyaline Casts 30 Urine Granular Casts 26 Urine Mucus FEW Microscopic Urinalysis Comment CULTURE INDICATED Fibrinogen 750 Test 01/03/18 02:25 01/03/18 05:45 01/03/18 07:20 01/03/18 10:48 Platelet Count 28 67 Blood Gas Puncture Site DRAWN IN OR ART LINE Blood Gas Patient Temperature 98.6 98.6 Blood Gas HCO3 21 22 Blood Gas Base Excess -3.8 -2.6 Blood Gas Oxygen Saturation 97 96 Arterial Blood pH 7.36 7.34 Arterial Blood Partial Pressure CO2 38 43 Arterial Blood Partial Pressure O2 257 132 Arterial Blood Oxygen Content 26.1 14.6 Arterial Blood Carboxyhemoglobin 0.9 1.4 Arterial Blood Methemoglobin 1.3 1.1 Blood Gas Hemoglobin 18.8 10.6 Oxygen Delivery Device OR VENTILATOR Blood Gas Inspired Oxygen 55 35 White Blood Count 17.2 Red Blood Count 3.22 Hemoglobin 10.1 Hematocrit 29.3 Mean Corpuscular Volume 90.9 Mean Corpuscular Hemoglobin 31.4 Mean Corpuscular Hemoglobin Concent 34.5 Red Cell Distribution Width 13.4 Mean Platelet Volume 8.1 CBC Comment AUTO DIFF Differential Total Cells Counted 100 Neutrophils % (Manual) 82 Band Neutrophils % 13 Lymphocytes % 2 Monocytes % 3 Neutrophils # (Manual) 16.3 Differential Comment FINAL DIFF MANUAL Platelet Estimate LOW Platelet Morphology Comment NORMAL Acanthocytes 1+ Prothrombin Time 11.3 Prothromb Time International Ratio 1.1 Activated Partial Thromboplast Time 24.3 Fibrinogen 623 Blood Gas Ventilator Setting Test 01/03/18 10:49 01/03/18 13:09 Blood Smear Pathologist Review Date/Time Source Procedure Growth Status 01/03/18 13:25 Blood Peripheral Aerobic Blood Culture Pending Received 01/03/18 13:25 Blood Peripheral Anaerobic Blood Culture Pending Received 01/02/18 23:35 Urine Clean Catch Urine Culture - Preliminary RESULTS PENDING Resulted 01/03/18 07:20 Wound Back Fungal Smear Pending Received 01/03/18 07:20 Wound Back Fungal Culture Pending Received Result Diagram: 01/03/18 0720 01/02/18 2320 Imaging Last Impressions Thoracic Spine MRI 01/03/18 0000 Signed Impressions: Service Date/Time: Wednesday, January 03, 2018 00:38 - CONCLUSION: Multilevel disc abnormalities. Severe canal stenosis at T2-3 and T5-6 with cord compression and mild signal changes in the cord at T2-3 and moderate signal changes within the cord at T5-6. Less severe changes at L2 additional levels as described. Harley Herrera MD Lumbar Spine MRI 01/03/18 0000 Signed Impressions: Service Date/Time: Wednesday, January 03, 2018 00:38 - CONCLUSION: Complete or near complete canal obliteration at L2-3, L3-4 and L4-5 with less severe compromise at L1-2 and T12-L1. Harley Herrera MD Cervical Spine MRI 01/03/18 0000 Signed Impressions: Service Date/Time: Wednesday, January 03, 2018 00:38 - CONCLUSION: Severe multilevel canal stenosis. Findings appear to be most critical at C4-5 and C5-6 where AP canal dimension is reduced to 4-5 mm, however also quite severe at C2-3 and C3-4. Harley Herrera MD Chest X-Ray 01/02/18 2302 Signed Impressions: Service Date/Time: Tuesday, January 02, 2018 23:11 - CONCLUSION: Mild basilar atelectasis or scarring. Harley Herrera MD Assessment and Plan Assessment and Plan Severe Sepsis present on admission (leucocytosis, Tachycardia, source: bacteremia and epidural abscess. E.coli bacteremia (CTX M negative) Infective Discitis likely secondary to E.coli bacteremia. Recent history of prostate biopsy as risk factor for E.coli bacteremia. Paraparesis present on admission. Recs: Continue Cefepime IV Continue Vanco IV for tonight (target 15-20) for bacteremia Repeat blood cultures 2D ECHO to look for e/o vegetations/ Needs CT Chest/abd pelvis in future to look for prostate abscess etc as source of infection or evidence of distant dissemination to Spleen,Liver etc. Urology consult (recent prostate biopsy) Follow cultures Follow clinically. Nemani,Shanda MD Jan 03, 2018 14:29
[2018-01-03] MEDS ORDERED: CEFEPIME INJ 2,000 MG in SODIUM CHLORIDE 0.9% INJ 100 ML IV SCH (15:00)
[2018-01-03] MEDS: CHLORHEXIDINE 0.12% (ORAL KIT) 15 ML CUP MT SCH (20:00)
[2018-01-03] MEDS: CHLORHEXIDINE GLUCONATE 2 % 1 PACK (2 CLOTHS) TOP SCH (20:13)
--- NOTE | 2018-01-03 20:31 | PD.OP ---
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 Severe lumbar canal stenosis 2. Cauda equina syndrome 3. Cervical degenerative disease with severe stenosis and myelopathy 4. Thoracic disc disease with severe canal stenosis and myelopathy 5. Sepsis 6. Thrombocytopenia 7. 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 Severe lumbar canal stenosis 2. Cauda equina syndrome 3. Cervical degenerative disease with severe stenosis and myelopathy 4. Thoracic disc disease with severe canal stenosis and myelopathy 5. Sepsis 6. Thrombocytopenia 7. Acute kidney disease Procedure: 1. Bilateral L1-2, L2-3, L3 4, L4 5 decompressive semi-laminectomy, medial facetectomy for spinal canal decompression. Anesthesia: Gen. Surgeon: Jerry Chakraborty Automatic Vulcanizing Lead Operator(s): Marylin Velasquez Operation and Findings: Findings: Severe facet and ligament hypertrophy with severe canal stenosis at the L1-2 through L4 5 levels Procedure in detail: The patient was brought into the operating room and general endotracheal anesthesia induced without difficulty. ALYSON hose and sequential compression devices were placed. The Reyna catheter was placed. Lines were established by anesthesia. Leads for intraoperative neuro monitoring were placed and a baseline study obtained. The patient was positioned on the concentric Rodriguez table with the side bolsters and all extremities appropriately padded. Appropriate time-out procedure was performed with all personnel present and in agreement. 1% Xylocaine with epinephrine was used for local infiltration over the incision site which was made just to the left of midline at the L1 through L5 level. The incision was carried sharply down to the lumbodorsal fascia which was incised adjacent to the spinous processes at the left L1 through L5 levels. Marks elevator was used for subperiosteal elevation of paraspinous musculature and fascia away from the lamina and spinous process at the left L1-L5 levels. The deep self-retaining retractor was placed. The appropriate levels were verified with intraoperative C-arm. Microscope was moved into place and used for the remainder of the procedure including the closure. At each level starting on the left side and then working across the midline to the opposite side, the TPS drill with a 5 mm bone bur followed by the 4 mm elsy bur was used to remove the inferior two thirds of the more cephalad lamina and the superior aspect of the more caudal lamina along with a moderate amount of the bilateral medial facet, taking care not to disrupt the integrity of the facet or pars intra-articularis. The severely hypertrophied ligamentum flavum at each level was elevated away from the thecal sac with the thin ligament dissector and resected with the 15 blade knife and the Kerrison rongeur out to the level of the deep lateral recess to completely decompress the thecal sac and exiting nerve roots. The exiting nerve roots were followed to the level of the medial pedicle to ensure that they were well decompressed. The nerve roots appeared well decompressed at the end of the procedure. No spinal fluid leakage was encountered. The disc and annulus at each level was visualized to make sure that there was no significant disc displacement or herniation. Bleeding was carefully controlled with the bipolar forceps. A 10 mm Rodriguez-Santana drain was left in place at the operative site and brought out through an incision in the mid lumbar region and secured to the skin with nylon suture and attached to a bulb suction. The closure was performed with 0 Vicryl interrupted for the deep and superficial fascia, with 3-0 Vicryl interrupted subcutaneous closure, and 4-0 Vicryl running subcuticular closure. A dressing of sterile Mastisol, Steri- Strips, and Primapore was placed. The patient was taken to recovery room in stable condition. All counts were correct at the end of the case. Estimated blood loss was 600 cc. A culture swab of the lumbar epidural space was sent for routine microbiology specimen. Jerry Chakraborty MD Jan 03, 2018 20:31
[2018-01-03] MEDS: TAMSULOSIN HCL 0.4 MG CAP PO SCH (20:43)
[2018-01-04] VITALS (15 sets, daily range): BP systolic 133–153; BP diastolic 67–77; PULSE 76–122; RESP 14–27; TEMP 98.4–102.7; O2SAT 96–100
[2018-01-04] MEDS: SODIUM CHLOR 0.9% 1000 ML INJ 1,000 ML IV SCH ×2 (00:41→16:35)
[2018-01-04] MEDS: MORPHINE SULFATE 4 MG/ML INJ IV PUSH PRN ×4 (01:35→18:41)
[2018-01-04] MEDS: ARTIFICIAL TEARS OPTH SOLN 15 ML BTL EACH EYE SCH ×2 (03:07→13:53)
[2018-01-04] MEDS: RESP: ALBUTEROL 2.5 MG/IPRATROPIUM 0.5 MG NEB (SCH) NEB ×3 (03:45→16:06)
[2018-01-04 04:58] LABS: ALBUMIN 1.8 GM/DL (3.4-5.0); BICARBONATE 22.7 MEQ/L (21.0-32.0); CALCIUM 7.1 MG/DL (8.5-10.1); CALCIUM-PROTEIN CORRECTED 7.6 MG/DL (8.5-10.1); CREATININE 1.26 MG/DL (0.60-1.30); MAGNESIUM 2.2 MG/DL (1.5-2.5); PHOSPHORUS 2.1 MG/DL (2.5-4.9); TOTAL BILIRUBIN ADULT 1.4 MG/DL (0.2-1.0); TOTAL PROTEIN 6.2 GM/DL (6.4-8.2)
[2018-01-04 04:59] LABS: HEMATOCRIT 25.1 % (39.0-51.0); HEMOGLOBIN 8.8 GM/DL (13.0-17.0); MEAN CELL VOLUME 90.2 FL (80.0-100.0); MEAN CORPUSCULAR HEMOGLOBIN 31.6 PG (27.0-34.0); PLATELET COUNT 23 TH/MM3 (150-450); RED BLOOD COUNT 2.78 MIL/MM3 (4.50-5.90); RED CELL DISTRIBUTION WIDTH 13.7 % (11.6-17.2); WHITE BLOOD COUNT 15.6 TH/MM3 (4.0-11.0)
[2018-01-04] MEDS: CHLORHEXIDINE 0.12% (ORAL KIT) 15 ML CUP MT SCH ×2 (08:00→20:00)
[2018-01-04 08:10] LABS: BANDS 10 % (0-6); LYMPHOCYTES 5 % (9-44); MONOCYTES 2 % (0-8); NEUTROPHIL # MANUAL DIFF 14.5 TH/MM3 (1.8-7.7); POLYS (SEG NEUTROPHILS) 83 % (16-70)
[2018-01-04 08:11] LABS: TOXIC VACUOLATION PRESENT (NONE SEEN)
--- NOTE | 2018-01-04 08:52 | MB ---
cc: Yannick Doran MD DATE: 01/03/2018 REASON FOR CONSULTATION: Consult requested by lamination builder for evaluation of thrombocytopenia. HISTORY OF PRESENT ILLNESS: This is a 67-year-old male. History is obtained through his (patient is a singh). The patient identifies his male partner to be his . He is a very good historian. The patient has a history of BPH and recently his PSA was found to be elevated at 7 by his primary physician, Dr. Latif. He was referred to urologist, Dr. Walter Grover MD. Last week, 12/27, he underwent prostate biopsy. According to the patient and his partner, blood test prior to the biopsy was completely normal in terms of the platelet count. He states that his kidney function and CBC was normal, but those results are not available. The biopsy procedure was uneventful. Two days after the biopsy, on 12/29, he started having fever of 101 with chills and excessive sweating. His symptoms continued and he went to see his primary physician on . By that time, he was complaining of pain in his lower back. He was given muscle relaxant and pain medication. The patient noticed that he had developed weakness in his legs and he thought that could be due to the muscle relaxant. He stopped that and his symptoms did not improve. He went to see his primary physician on Wednesday. It was thought that he could have developed infection and he was given Cipro and steroid. On Wednesday morning, 01/02, when he woke up, he had difficulty in walking due to severe progressive leg weakness. He fell in the shower and he was unable to get up. Paramedics were called and he was taken to [facility]. According to them, no scans were done and he was given some pain medication and he was carried to his vehicle to go home. When he reached home, he had a difficult time getting into his home and he fell again. The paramedics were called and this time patient requested to come to [facility] for further evaluation. The patient had not had any urination since 06:00 a.m. on Wednesday. The patient was evaluated by Dr. Maryam Billingsley, ER physician, who had order the appropriate studies with the MRI of the thoracic, lumbar and cervical spine. This showed severe spinal stenosis in cervical, thoracic and lumbar spine. However, there was a cord compression noted, with severe canal compromise in the lumbar area with cauda equina syndrome. Dr. Chakraborty was consulted on an urgent basis. He was taken to the OR for emergent lumbar laminectomy. The patient has tolerated the surgery well and now he is in the intensive care unit. I have been asked to see him for thrombocytopenia. When the patient came in yesterday, his white count was 12.6, platelet count was 18. The differential count showed severe neutrophilia and 19% bandemia. He also has toxic vacuolation. Platelet count was repeated and came back again low at 28. The patient had received a platelet transfusion for the surgery. His repeat platelet count was 67 this morning. The blood cultures came back positive for Gram-negative madonna. He is on the antibiotics. ID has been consulted. The patient is able to move his legs somewhat while in the bed. However, he still has numbness and severe weakness in both lower legs, but now he is able to move his legs and he showed me also. He is hopeful that his leg weakness is going to improve and he will be able to walk again. He does not have any weakness or numbness of the upper extremities. He does not have any numbness or paresthesia of the chest or the abdomen. REVIEW OF SYSTEMS: The rest of the review of systems is negative. PAST MEDICAL HISTORY: BPH, hypothyroidism, depression, kidney stones, hypercholesterolemia. PAST SURGICAL HISTORY: Tonsillectomy, kidney stone surgery and prostate biopsy a week ago. ALLERGIES: NONE. MEDICATIONS ARE: Lortab, tamsulosin, meloxicam, Cipro, rosuvastatin, Medrol and Robaxin. FAMILY HISTORY: Denies any family history of blood disorder. SOCIAL HISTORY: The patient is homosexual. He smokes cigarettes, one pack a day. He occasionally drinks alcohol. PHYSICAL EXAMINATION: GENERAL: This is a well-developed, well-nourished white male, in no apparent distress. VITAL SIGNS: Temperature 99.8, heart rate is 98, blood pressure 139/68, O2 saturation 94% on room air. HEENT: PERRLA, EOMI, anicteric. No oral lesions noted. NECK: No lymphadenopathy noted. LUNGS: Clear. No wheezing, rhonchi or rales. HEART: Regular rate and rhythm. ABDOMEN: Soft, nontender. No hepatosplenomegaly. EXTREMITIES: No pedal edema. NEUROLOGIC: Awake, alert, oriented x 3. Weakness of both lower legs noted, but he says that he is able to move his leg a little bit since the surgery. SKIN: No significant lesions noted. ASSESSMENT: 1. Severe thrombocytopenia, most likely due to Gram-negative sepsis. 2. Leukocytosis with neutrophilia, bandemia, toxic granulation and lactic acidosis. This is all consistent with severe sepsis. 3. Recent history of prostate biopsy, which probably has set up the Escherichia coli sepsis. 4. Severe spinal stenosis most profound in the lumbar spine, status post lumbar laminectomy. 5. Renal failure. It is unclear whether this is acute or chronic. According to the patient, his blood test was normal prior to the prostate biopsy. So, I presume that his renal failure is acute, most likely due to sepsis. 6. Hyperproteinemia, needs further evaluation. PLAN: I have reviewed his available records, and I had an extensive discussion with the patient and his male partner regarding his severe thrombocytopenia, which is due to the severe sepsis. His blood cultures are positive for Gram-negative rods. Further identification is still pending. He is currently on cefepime and vancomycin. ID has been consulted. His peripheral smear was reviewed by the pathologist earlier. There is no significant numbers of schistocytes noted and a microangiopathic hemolytic process is not favored. He has leukocytosis with reactive features. He has mild normocytic normochromic anemia and moderate thrombocytopenia. The LDH is normal. The haptoglobin is not low. No evidence of hemolysis noted. His total bilirubin is normal at 1.0. No evidence of TTP or HUS. I expect his platelet count to continue to improve with the antibiotics. He underwent a lumbar laminectomy and he had a culture obtained at the lumbar epidural space and the result of that is still pending. The urinalysis showed moderate bacteria and 10 white cells. The urine culture has been done, the results are still pending. His total protein is high, which is consistent with chronic infection/inflammation. I will get the HIV test and hepatitis panel for further evaluation. I expect his kidney function to improve. But if it does not, then we will order tests for gammopathy. I have discussed the case with the patient's RN. I have been told that the patient would need further surgery to his thoracic spinal stenosis with cord compression, as well as cervical spinal stenosis. The timing of the procedure is unknown, but I believe Dr. Chakraborty will discuss with them when it will be appropriate to do further surgery. Further recommendations to follow based on his hospital stay. Thank you for asking my opinion. MD ANDRES Melgar/DENNIS , 11:55 PM , 01:05 AM [email or web address]
[2018-01-04] MEDS: SODIUM CHLORIDE 0.9% FLUSH 10 ML FLUSH IV FLUSH SCH ×2 (09:00→20:19)
[2018-01-04] MEDS: FAMOTIDINE 20 MG/2 ML VIAL IV PUSH SCH (09:00)
[2018-01-04] MEDS: METHOCARBAMOL 500 MG TAB PO SCH ×4 (09:00→20:19)
[2018-01-04] MEDS: DOCUSATE SODIUM 50 MG/SENNA 8.6 MG TAB PO SCH ×2 (09:00→20:20)
[2018-01-04] MEDS: ATORVASTATIN 40 MG TAB PO SCH (09:00)
[2018-01-04 11:58] LABS: HEMATOCRIT 24.2 % (39.0-51.0); HEMOGLOBIN 8.4 GM/DL (13.0-17.0); MEAN CELL VOLUME 90.6 FL (80.0-100.0); MEAN CORPUSCULAR HEMOGLOBIN 31.5 PG (27.0-34.0); MEAN CORPUSCULAR HGB CONC 34.8 % (32.0-36.0); MEAN PLATELET VOLUME 8.2 FL (7.0-11.0); PLATELET COUNT 63 TH/MM3 (150-450); RED BLOOD COUNT 2.67 MIL/MM3 (4.50-5.90); RED CELL DISTRIBUTION WIDTH 13.5 % (11.6-17.2); WHITE BLOOD COUNT 16.8 TH/MM3 (4.0-11.0)
--- NOTE | 2018-01-04 12:11 | PD.ONC.PN ---
Subjective Subjective Remarks Afebrile overnight. Patient resting in bed in nad. No complaints. Partner at bedside. states he can't feel his legs from the knees down, also unable to move legs. Objective Data Date Time Temp Pulse Resp B/P (MAP) Pulse Ox O2 Delivery O2 Flow Rate FiO2 01/04/18 09:51 98 01/04/18 07:45 98.5 83 23 151/68 98 01/04/18 07:45 98.5 83 23 151/68 98 01/04/18 07:30 98.5 76 18 153/77 100 01/04/18 07:30 98.5 77 18 153/77 100 01/04/18 06:46 18 01/04/18 06:00 88 01/04/18 04:00 99.0 82 18 152/71 (98) 98 01/04/18 04:00 82 01/04/18 03:45 98 21 01/04/18 02:00 88 01/04/18 00:00 98.9 84 14 142/74 (96) 99 01/04/18 00:00 84 01/03/18 22:00 90 01/03/18 21:50 100 21 01/03/18 20:00 98.4 90 18 140/71 (94) 99 140/71 (94) 01/03/18 20:00 90 01/03/18 19:00 100 Room Air 01/03/18 16:00 94 Room Air 01/03/18 16:00 98 01/03/18 16:00 99.8 98 16 139/68 (91) 94 01/03/18 15:30 93 Nasal Cannula 3.00 01/03/18 15:30 98 Nasal Cannula 3 01/03/18 15:30 98 Nasal Cannula 3.00 01/03/18 14:55 35 01/03/18 13:08 98 35 01/03/18 12:00 98.6 104 18 98/56 (70) 98 Automatic Cuff 01/03/18 12:00 104 01/04/18 01/04/18 01/04/18 07:00 15:00 23:00 Intake Total 960 ml 624 ml Output Total 2915 ml Balance -1955 ml 624 ml Result Diagram: 01/04/18 0340 01/04/18 0340 Laboratory Results Laboratory Tests Test 01/03/18 13:02 01/03/18 13:09 01/04/18 03:40 01/04/18 11:35 Nasal Screen MRSA (PCR) MRSA NOT DETECTED Haptoglobin 234 MG/DL Lactate Dehydrogenase 204 U/L White Blood Count 15.6 TH/MM3 Red Blood Count 2.78 MIL/MM3 Hemoglobin 8.8 GM/DL Hematocrit 25.1 % Mean Corpuscular Volume 90.2 FL Mean Corpuscular Hemoglobin 31.6 PG Mean Corpuscular Hemoglobin Concent 35.0 % Red Cell Distribution Width 13.7 % Platelet Count 23 TH/MM3 Mean Platelet Volume 9.0 FL CBC Comment AUTO DIFF Differential Total Cells Counted 100 Neutrophils % (Manual) 83 % Band Neutrophils % 10 % Lymphocytes % 5 % Monocytes % 2 % Neutrophils # (Manual) 14.5 TH/MM3 Differential Comment FINAL DIFF MANUAL Toxic Vacuolation PRESENT Platelet Estimate LOW Platelet Morphology Comment NORMAL Blood Urea Nitrogen 43 MG/DL Creatinine 1.26 MG/DL Random Glucose 120 MG/DL Total Protein 6.2 GM/DL Albumin 1.8 GM/DL Calcium Level 7.1 MG/DL Phosphorus Level 2.1 MG/DL Magnesium Level 2.2 MG/DL Alkaline Phosphatase 170 U/L Aspartate Amino Transf (AST/SGOT) 42 U/L Alanine Aminotransferase (ALT/SGPT) 27 U/L Total Bilirubin 1.4 MG/DL Sodium Level 134 MEQ/L Potassium Level 4.0 MEQ/L Chloride Level 103 MEQ/L Carbon Dioxide Level 22.7 MEQ/L Anion Gap 8 MEQ/L Estimat Glomerular Filtration Rate 57 ML/MIN Protein Corrected Calcium 7.6 MG/DL Random Vancomycin Level 8.0 COMMENT Hepatitis A IgM Antibody NONREACTIVE Hepatitis B Core IgM Antibody NONREACTIVE Hepatitis C IgG Antibody NONREACTIVE HIV (1&2) Ab and P24 Ag, 4th Gener NONREACTIVE Culture Results Microbiology Date/Time Source Procedure Growth Status 01/03/18 13:25 Blood Peripheral Aerobic Blood Culture - Preliminary Gram Negative Yovanny Resulted 01/03/18 13:25 Blood Peripheral Anaerobic Blood Culture - Preliminary NO GROWTH IN 1 DAY Resulted 01/03/18 13:09 Blood Peripheral Aerobic Blood Culture - Preliminary Gram Negative Yovanny Resulted 01/03/18 13:09 Blood Peripheral Anaerobic Blood Culture - Preliminary NO GROWTH IN 1 DAY Resulted 01/02/18 23:20 Blood Peripheral Aerobic Blood Culture - Preliminary Escherichia Coli Resulted 01/02/18 23:20 Anaerobic Blood Culture - Preliminary Escherichia Coli Resulted 01/02/18 23:15 Blood Peripheral Aerobic Blood Culture - Preliminary Escherichia Coli Resulted 01/02/18 23:15 Anaerobic Blood Culture - Preliminary Escherichia Coli Resulted 01/02/18 23:35 Urine Clean Catch Urine Culture - Preliminary Gram Negative Yovanny Resulted 01/03/18 07:20 Wound Back Fungal Smear - Final NO FUNGAL ELEMENTS SEEN. Resulted 01/03/18 07:20 Wound Back Fungal Culture Pending Resulted 01/03/18 07:20 Wound Back Acid Fast Stain - Final NO ACID FAST BACILLI SEEN Resulted 01/03/18 07:20 Wound Back Mycobacterial Culture Pending Resulted 01/03/18 07:20 Wound Back Gram Stain - Final Resulted 01/03/18 07:20 Wound Back Wound Culture Pending Resulted Administered Medications Medications (Trade) Dose Ordered Sig/Kaveh Route PRN Reason Start Time Stop Time Status Last Admin Dose Admin Methocarbamol (Robaxin) 500 mg QID PO 01/03/18 09:00 01/04/18 09:00 Tamsulosin HCl (Flomax) 0.4 mg HS PO 01/03/18 21:00 01/03/18 20:43 Atorvastatin Calcium (Lipitor) 40 mg DAILY PO 01/03/18 09:00 01/04/18 09:00 Sodium Chloride 1,000 ml @ 84 mls/hr [id number] IV 01/03/18 04:50 01/04/18 00:41 Sodium Chloride (NS Flush) 2 ml BID IV FLUSH 01/03/18 09:00 01/04/18 09:00 Morphine Sulfate (Morphine Inj) 2 mg Q2H PRN IV PUSH PAIN SCALE 6 TO 10 01/03/18 05:00 01/04/18 11:15 Senna/Docusate Sodium (Roxana-Colace) 1 tab BID PO 01/03/18 09:00 01/04/18 09:00 Albuterol/ Ipratropium (Duoneb Neb) 1 ampule Q6HR NEB NEB 01/03/18 10:00 01/04/18 09:46 Cefepime HCl 2000 mg/Sodium Chloride 100 ml @ 200 mls/hr Q24H IV 01/03/18 15:00 01/03/18 19:17 Objective Remarks GENERAL: Middle aged male, lying supine in bed resting. SKIN: Warm and dry. HEAD: Normocephalic. EYES: No injection or drainage. NECK: Supple, trachea midline. CARDIOVASCULAR: Regular rate and rhythm RESPIRATORY: anterior pederson clear. GASTROINTESTINAL: Abdomen soft, non-tender, nondistended. EXTREMITIES: No cyanosis NEUROLOGICAL: awake and alert. normal speech. moving upper extremities. Assessment/Plan Problem List: (1) Thrombocytopenia ICD Codes: D69.6 - Thrombocytopenia, unspecified Plan: 01/04: platelets=23K today. agree with two units of platelets ordered this AM. monitor CBC --likely d/t sepsis (2) Sepsis ICD Codes: A41.9 - Sepsis, unspecified organism Plan: --on antibiotics --ID following. (3) Lumbar canal stenosis ICD Codes: M48.061 - Spinal stenosis, lumbar region without neurogenic claudication Plan: --neurosurgery, Dr. Chakraborty following. --s/p laminectomy Assessment 67y/o male with thrombocytopenia admitted with sepsis, spinal stenosis, leg weakness. Now s/p emergent lumbar laminectomy history of BPH, hypothyroidism, depression, kidney stones, hypercholesterolemia. Attending Statement The exam, history, and the medical decision-making described in the above note were completed with the assistance of the mid-level provider. I reviewed and agree with the findings presented. I attest that I had a [id number] encounter with the patient on the same day, and personally performed and documented my assessment and findings in the medical record. Still has no feelings in lower legs but able to move some. HAs E.Coli Sepsis. On A/B Low plat are due to sepsis. Plat 23 K . Plat tx today to keep > 50 K due to recent Back surgery. HIV and Hep panel = Negative, Dulce Loredo Jan 04, 2018 12:11 Terri Doran MD Jan 04, 2018 22:13
--- NOTE | 2018-01-04 12:15 | HHI.NSPN ---
(Tigre Estrada) History Chief Complaint: Pain to the neck and low back. (Tigre Estrada) Interval History 01/03: 67-year-old male who underwent a prostate biopsy one week ago, on . He states that on the evening of 12/29/17 on into the morning of 12/30/17, he developed fever and chills, low back pain, and lower extremity numbness and paresthesias and muscle spasm. He was seen by his primary care physician and was given medication including muscle relaxant. The symptoms persisted and he returned to his primary care physician on Wednesday , 01/01/18 and was given additional medications including Cipro. He awoke on 01/02/2018 with increased lower extremity weakness and numbness, and fell in the shower in the morning, after which he was unable to ambulate or lift his legs off the bed, and continued to experience pain in the lower back. He went to the emergency room at [facility], and was given additional medication injections. He states that he could not lift his legs off the bed or ambulate in the emergency room, and was taken out to his car and lifted into the car and sent home again. He fell in the driveway again trying to get back into the house. He apparently did not urinate for the entire day. He has no complaint of pain which is numbness paresthesias in the upper extremities. No numbness or paresthesias over the chest or abdomen or pelvic region. The patient was emergently taken to the operating room for a bilateral L1-2, L2- 3, L3 4, L4 5 decompressive semi-laminectomy, medial facetectomy for spinal canal decompression. Post-operatively the patient remained intubated and was admitted to [facility] for further care and monitoring. 01/04: When seen this afternoon the patient has been extubated. He is awake and alert and readily interacts. He does report pain to the neck and the lower back. He has no numbness, tingling or weakness to the upper extremities but does say he will have pain shooting down them if he moves wrong. He denies any pain to the lower extremities but does have numbness to both feet and about the only movement he is able to do is move his knees medially and laterally. Upon examination the patient's sensorimotor exam is improved from pre-operatively. (Tigre Estrada) Exam Results Vital Signs Date Time Temp Pulse Resp B/P (MAP) Pulse Ox O2 Delivery O2 Flow Rate FiO2 01/04/18 09:51 98 01/04/18 07:45 98.5 83 23 151/68 01/04/18 03:45 21 01/03/18 19:00 Room Air 01/03/18 15:30 3.00 Intake and Output 01/04/18 01/04/18 01/05/18 08:00 16:00 00:00 Intake Total 960 ml 624 ml Output Total 2915 ml Balance -1955 ml 624 ml (Tigre Estrada) Physical Examination GENERAL: Awake & alert in bed watching TV. His affect is somewhat flat bue he readily interacts. He is not in any apparent distress. HEENT: Normocephalic, atraumatic. PERRLA 3 mm brisk, EOMI. MMM & pink, uvula midline, airway patent, tongue midline to protrusion. NECK: Midline cervical spine mildly TTP. Neck supple. No JVD. Trachea midline. MUSCULOSKELETAL: RAVI to varying degrees spontaneously & purposefully. Extremities are NTTP. No evident clubbing or deformity. The thoracic spine is nontender to palpation. The lumbar spine is minimally TTP and the dressing is dry & intact, the GUIDO drain is to bulb suction w/serosanguinous drainage, there is some sanguinous shadowing on the dressing. NEUROLOGICAL: AAOx3. Speech clear & appropriate. Follows commands w/o difficulty. CN II through XII grossly intact. Decreased sensation to the feet but o/w intact to light touch to the extremities. Motor strength: LUE: Deltoid 4+/5, biceps 4+/5, triceps 4/5, wrist flexors & extensors 4/5 and hand intrinsics & extrinsics 4/5. RUE: Deltoid 4+/5, biceps 4+/5, triceps 4+/5, wrist flexors & extensors 4/5 and hand intrinsics & extrinsics 4/5. LLE: Iliopsoas 2+/5, quadriceps 1/5, hamstring 2+/5, tibialis anterior 1-/5, gastrocnemius 0/5 & extensor hallucis longus 0/5. RLE: Iliopsoas 2+/5, quadriceps 4+/5, hamstring 3-/5, tibialis anterior 0/5, gastrocnemius 0/5 & extensor hallucis longus 0/5. Neutral Babinski bilaterally. (Tigre Estrada) Lab, Micro, Other Results Recent Impressions Thoracic Spine MRI 01/03/18 0000 Signed Impressions: Service Date/Time: Wednesday, January 03, 2018 00:38 - CONCLUSION: Multilevel disc abnormalities. Severe canal stenosis at T2-3 and T5-6 with cord compression and mild signal changes in the cord at T2-3 and moderate signal changes within the cord at T5-6. Less severe changes at L2 additional levels as described. Harley Herrera MD Lumbar Spine MRI 01/03/18 0000 Signed Impressions: Service Date/Time: Wednesday, January 03, 2018 00:38 - CONCLUSION: Complete or near complete canal obliteration at L2-3, L3-4 and L4-5 with less severe compromise at L1-2 and T12-L1. Harley Herrera MD Cervical Spine MRI 01/03/18 0000 Signed Impressions: Service Date/Time: Wednesday, January 03, 2018 00:38 - CONCLUSION: Severe multilevel canal stenosis. Findings appear to be most critical at C4-5 and C5-6 where AP canal dimension is reduced to 4-5 mm, however also quite severe at C2-3 and C3-4. Harley Herrera MD Chest X-Ray 01/02/18 [id number] Signed Impressions: Service Date/Time: Tuesday, January 02, 2018 23:11 - CONCLUSION: Mild basilar atelectasis or scarring. Harley Herrera MD Laboratory Tests Test 01/02/18 23:20 01/02/18 23:35 01/03/18 01:40 01/03/18 01:42 White Blood Count 12.6 TH/MM3 Red Blood Count 4.89 MIL/MM3 Hemoglobin 15.8 GM/DL Hematocrit 44.6 % Mean Corpuscular Volume 91.3 FL Mean Corpuscular Hemoglobin 32.2 PG Mean Corpuscular Hemoglobin Concent 35.3 % Red Cell Distribution Width 13.5 % Platelet Count 18 TH/MM3 Mean Platelet Volume 8.9 FL CBC Comment AUTO DIFF Differential Total Cells Counted 100 Neutrophils % (Manual) 71 % Band Neutrophils % 19 % Lymphocytes % 4 % Monocytes % 4 % Neutrophils # (Manual) 11.6 TH/MM3 Metamyelocytes 2 % Differential Comment FINAL DIFF MANUAL Toxic Vacuolation PRESENT Platelet Estimate LOW Platelet Morphology Comment NORMAL Erythrocyte Sedimentation Rate 40 mm/hr Prothrombin Time 10.7 SEC Prothromb Time International Ratio 1.1 RATIO Activated Partial Thromboplast Time 24.5 SEC Blood Urea Nitrogen 69 MG/DL Creatinine 2.23 MG/DL Random Glucose 141 MG/DL Total Protein 9.3 GM/DL Albumin 2.7 GM/DL Calcium Level 9.3 MG/DL Magnesium Level 2.6 MG/DL Alkaline Phosphatase 321 U/L Aspartate Amino Transf (AST/SGOT) 61 U/L Alanine Aminotransferase (ALT/SGPT) 43 U/L Total Bilirubin 1.0 MG/DL Sodium Level 129 MEQ/L Potassium Level 3.7 MEQ/L Chloride Level 93 MEQ/L Carbon Dioxide Level 23.5 MEQ/L Anion Gap 13 MEQ/L Estimat Glomerular Filtration Rate 29 ML/MIN Lactic Acid Level 4.0 mmol/L 2.0 mmol/L Total Creatine Kinase 927 U/L Creatine Kinase MB 20.4 NG/ML Creatine Kinase MB % 2.2 % Troponin I LESS THAN 0.02 NG/ML C-Reactive Protein 33.30 MG/DL B-Type Natriuretic Peptide 44 PG/ML Lipase 112 U/L Urine Color YELLOW Urine Turbidity HAZY Urine pH 5.0 Urine Specific Ione 1.017 Urine Protein 30 mg/dL Urine Glucose (UA) NEG mg/dL Urine Ketones NEG mg/dL Urine Occult Blood MOD Urine Nitrite NEG Urine Bilirubin NEG Urine Urobilinogen LESS THAN 2.0 MG/DL Urine Leukocyte Esterase MOD Urine RBC 2 /hpf Urine WBC 10 /hpf Urine Squamous Epithelial Cells <1 /hpf Urine Bacteria MOD /hpf Urine Hyaline Casts 30 /lpf Urine Granular Casts 26 /lpf Urine Mucus FEW /lpf Microscopic Urinalysis Comment CULTURE INDICATED Fibrinogen 750 mg/dL Test 01/03/18 02:25 01/03/18 05:45 01/03/18 07:20 01/03/18 10:48 Platelet Count 28 TH/MM3 67 TH/MM3 Blood Gas Puncture Site DRAWN IN OR ART LINE Blood Gas Patient Temperature 98.6 98.6 Blood Gas HCO3 21 mmol/L 22 mmol/L Blood Gas Base Excess -3.8 mmol/L -2.6 mmol/L Blood Gas Oxygen Saturation 97 % 96 % Arterial Blood pH 7.36 7.34 Arterial Blood Partial Pressure CO2 38 mmHg 43 mmHg Arterial Blood Partial Pressure O2 257 mmHg 132 mmHg Arterial Blood Oxygen Content 26.1 Vol % 14.6 Vol % Arterial Blood Carboxyhemoglobin 0.9 % 1.4 % Arterial Blood Methemoglobin 1.3 % 1.1 % Blood Gas Hemoglobin 18.8 G/DL 10.6 G/DL Oxygen Delivery Device OR VENTILATOR Blood Gas Inspired Oxygen 55 % 35 % White Blood Count 17.2 TH/MM3 Red Blood Count 3.22 MIL/MM3 Hemoglobin 10.1 GM/DL Hematocrit 29.3 % Mean Corpuscular Volume 90.9 FL Mean Corpuscular Hemoglobin 31.4 PG Mean Corpuscular Hemoglobin Concent 34.5 % Red Cell Distribution Width 13.4 % Mean Platelet Volume 8.1 FL CBC Comment AUTO DIFF Differential Total Cells Counted 100 Neutrophils % (Manual) 82 % Band Neutrophils % 13 % Lymphocytes % 2 % Monocytes % 3 % Neutrophils # (Manual) 16.3 TH/MM3 Differential Comment FINAL DIFF MANUAL Platelet Estimate LOW Platelet Morphology Comment NORMAL Acanthocytes 1+ Prothrombin Time 11.3 SEC Prothromb Time International Ratio 1.1 RATIO Activated Partial Thromboplast Time 24.3 SEC Fibrinogen 623 mg/dL Blood Gas Ventilator Setting Test 01/03/18 10:49 01/03/18 13:02 01/03/18 13:09 01/04/18 03:40 Blood Smear Pathologist Review Nasal Screen MRSA (PCR) MRSA NOT DETECTED Haptoglobin 234 MG/DL Lactate Dehydrogenase 204 U/L White Blood Count 15.6 TH/MM3 Red Blood Count 2.78 MIL/MM3 Hemoglobin 8.8 GM/DL Hematocrit 25.1 % Mean Corpuscular Volume 90.2 FL Mean Corpuscular Hemoglobin 31.6 PG Mean Corpuscular Hemoglobin Concent 35.0 % Red Cell Distribution Width 13.7 % Platelet Count 23 TH/MM3 Mean Platelet Volume 9.0 FL CBC Comment AUTO DIFF Differential Total Cells Counted 100 Neutrophils % (Manual) 83 % Band Neutrophils % 10 % Lymphocytes % 5 % Monocytes % 2 % Neutrophils # (Manual) 14.5 TH/MM3 Differential Comment FINAL DIFF MANUAL Toxic Vacuolation PRESENT Platelet Estimate LOW Platelet Morphology Comment NORMAL Blood Urea Nitrogen 43 MG/DL Creatinine 1.26 MG/DL Random Glucose 120 MG/DL Total Protein 6.2 GM/DL Albumin 1.8 GM/DL Calcium Level 7.1 MG/DL Phosphorus Level 2.1 MG/DL Magnesium Level 2.2 MG/DL Alkaline Phosphatase 170 U/L Aspartate Amino Transf (AST/SGOT) 42 U/L Alanine Aminotransferase (ALT/SGPT) 27 U/L Total Bilirubin 1.4 MG/DL Sodium Level 134 MEQ/L Potassium Level 4.0 MEQ/L Chloride Level 103 MEQ/L Carbon Dioxide Level 22.7 MEQ/L Anion Gap 8 MEQ/L Estimat Glomerular Filtration Rate 57 ML/MIN Protein Corrected Calcium 7.6 MG/DL Random Vancomycin Level 8.0 COMMENT Hepatitis A IgM Antibody NONREACTIVE Hepatitis B Core IgM Antibody NONREACTIVE Hepatitis C IgG Antibody NONREACTIVE HIV (1&2) Ab and P24 Ag, 4th Gener NONREACTIVE Test 01/04/18 11:35 (Tigre Estrada) Medical Decision Making Impression and Plan Impression: 1. Severe progressive paraplegia. Although he has significant spinal stenosis in the cervical thoracic and lumbar region, his overall presentation and exam suggests that the lumbar stenosis is the immediate cause of his severe lower extremity deficit, positive cauda equina syndrome. 2. Possible sepsis 3. Acute kidney disease 4. 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 Severe lumbar canal stenosis 2. Cauda equina syndrome 3. Cervical degenerative disease with severe stenosis and myelopathy 4. Thoracic disc disease with severe canal stenosis and myelopathy 5. Sepsis 6. Thrombocytopenia 7. Acute kidney disease Patient is doing well today. He continues to have neck & low back pain. His sensorimotor exam is improved post-operatively. Reviewed labs for today. Interval improvement in leukocytosis but decrease in haemoglobin level. Worsening of thrombocytopenia. Improvement in sodium level to 134. Improvement in eGFR, AST & alk phos. Wound culture () w/negative Gram stain, cultures pending. Blood cultures () positive for Escherichia coli. GUIDO drain with 65 mL output for the past 24 hours as of shift change this morning. POD #1 () s/p: 1. Bilateral L1-2, L2-3, L3 4, L4 5 decompressive semi-laminectomy, medial facetectomy for spinal canal decompression. Plan: Primary & critical care management per Public Health Analyst. Neuro checks. Bedrest. HOB between 30 and 45 degrees. Physical Therapy eval & tx. Hold pharmacologic DVT prophylaxis. Mechanical DVT prophylaxis. Monitor GUIDO drain output. The patient is able to be transferred to a regular med/surg floor from Neurosurgery's perspective. (Tigre Estrada) Attending Statement The exam, history, and the medical decision-making described in the above note were completed with the assistance of the mid-level provider. I reviewed and agree with the findings presented. I attest that I had a [id number] encounter with the patient on the same day, and personally performed and documented my assessment and findings in the medical record. On my examination for 318, patient's lower extremity sensory function relatively stable compared to preoperative, seems to have a little improvement and primarily proximal lower extremity motor function. Moderate drain output Begin physical therapy Mobilize out of bed as tolerated Initial cultures positive Escherichia coli ID following (Jerry Chakraborty MD) Tigre Estrada Jan 04, 2018 12:15 Jerry Chakraborty MD Jan 05, 2018 22:03
[2018-01-04] MEDS ORDERED: VANCOMYCIN INJ 2,000 MG in SODIUM CHLORID 0.9% 500 ML INJ 500 ML IV SCH (13:00)
--- NOTE | 2018-01-04 14:38 | HHI.IDPN ---
Subjective Subjective Remarks Mr. Reeves is a 67 y/o CM with history of BPH who underwent a prostate biopsy one week ago, on 12/27/17. On the evening of 12/29/17 he developed fever and chills, low back pain, and lower extremity numbness and paresthesias and muscle spasm. He was seen by his primary care physician and was given medication including muscle relaxant. The symptoms persisted and he returned to his primary care physician on 01/01/18 and was given additional medications including Cipro and medrol dose pack. On 01/02/2018 patient woke up with increased lower extremity weakness and numbness, and fell in the shower in the morning, after which he was unable to ambulate or lift his legs off the bed , and continued to experience pain in the lower back. He went to the emergency room at [facility], and was given additional medication injections. He could not lift his legs off the bed or ambulate in the emergency room, and was taken out to his car and lifted into the car and sent home again. He fell in the driveway again trying to get back into the house. He apparently did not urinate for the entire day. He has no complaint of pain which is numbness paresthesias in the upper extremities. Reportedly on admission there was no numbness or paresthesias over the chest or abdomen or pelvic region. The MRI of thoracic spine shows severe canal stenosis at T2-3 and T5-6 level with cord compressions, complete or near complete canal obliteration at L2-3 L3- 4 and severe multilevel canal stenosis of the C-spine. Entire spine including C spine shows areas of stenosis. Upon my discussion with patient had to be emergently taken to the OR for decompression. Intraop cultures were taken and no hardware placed at present time but it appears that patient will need more surgeries. The MRIs done were non contrast due to Acute renal failure on admission and cannot be repeated. Per my dw plan is to treat as epidural abscess stone since patient was treated for few days with antibiotics prior to arrival and also due to patient needing hardware placement which can be seeded. At the time of my evaluation patient is in ISC. Intubated, being weaned off sedation, UO is good peck in place. Not on any pressors. There is a plan to wean to extubate the patient per RN. ID consulted for evaluation and Mment of GN yovanny bacteremia (E.coli CTX M negative) and possible epidural abscess. Overnight events reviewed. No fevers No rash No diarrhea Extubated. Does not move LE at all. No toe wiggling or flicker of muscle movts noted. Awake, oriented and answering questions appropriately. Antibiotics Cefepime IV Lines Line sites with no e.o infection Past Medical History reviewed Allergies: Coded Allergies: No Known Allergies (Unverified , 01/02/18) Objective . Vital Signs Date Time Temp Pulse Resp B/P (MAP) Pulse Ox O2 Delivery O2 Flow Rate FiO2 01/04/18 09:51 98 01/04/18 07:45 98.5 83 23 151/68 98 01/04/18 07:45 98.5 83 23 151/68 98 01/04/18 07:30 98.5 76 18 153/77 100 01/04/18 07:30 98.5 77 18 153/77 100 01/04/18 06:46 18 01/04/18 06:00 88 01/04/18 04:00 99.0 82 18 152/71 (98) 98 01/04/18 04:00 82 01/04/18 03:45 98 21 01/04/18 02:00 88 01/04/18 00:00 98.9 84 14 142/74 (96) 99 01/04/18 00:00 84 01/03/18 22:00 90 01/03/18 21:50 100 21 01/03/18 20:00 98.4 90 18 140/71 (94) 99 140/71 (94) 01/03/18 20:00 90 01/03/18 19:00 100 Room Air 01/03/18 16:00 94 Room Air 01/03/18 16:00 98 01/03/18 16:00 99.8 98 16 139/68 (91) 94 01/03/18 15:30 93 Nasal Cannula 3.00 01/03/18 15:30 98 Nasal Cannula 3 01/03/18 15:30 98 Nasal Cannula 3.00 01/03/18 14:55 35 01/04/18 01/04/18 01/05/18 15:00 23:00 07:00 Intake Total 624 ml Balance 624 ml Platelets 624 ml . Laboratory Tests Test 01/02/18 23:20 01/03/18 02:25 01/03/18 07:20 01/03/18 10:49 White Blood Count 12.6 TH/MM3 17.2 TH/MM3 Red Blood Count 4.89 MIL/MM3 3.22 MIL/MM3 Hemoglobin 15.8 GM/DL 10.1 GM/DL Hematocrit 44.6 % 29.3 % Mean Corpuscular Volume 91.3 FL 90.9 FL Mean Corpuscular Hemoglobin 32.2 PG 31.4 PG Mean Corpuscular Hemoglobin Concent 35.3 % 34.5 % Red Cell Distribution Width 13.5 % 13.4 % Platelet Count 18 TH/MM3 28 TH/MM3 67 TH/MM3 Mean Platelet Volume 8.9 FL 8.1 FL CBC Comment AUTO DIFF AUTO DIFF Differential Total Cells Counted 100 100 Neutrophils % (Manual) 71 % 82 % Band Neutrophils % 19 % 13 % Lymphocytes % 4 % 2 % Monocytes % 4 % 3 % Neutrophils # (Manual) 11.6 TH/MM3 16.3 TH/MM3 Metamyelocytes 2 % Differential Comment FINAL DIFF MANUAL FINAL DIFF MANUAL Toxic Vacuolation PRESENT Platelet Estimate LOW LOW Platelet Morphology Comment NORMAL NORMAL Erythrocyte Sedimentation Rate 40 mm/hr Acanthocytes 1+ Blood Smear Pathologist Review Test 01/03/18 13:09 01/04/18 03:40 01/04/18 11:35 Haptoglobin 234 MG/DL White Blood Count 15.6 TH/MM3 16.8 TH/MM3 Red Blood Count 2.78 MIL/MM3 2.67 MIL/MM3 Hemoglobin 8.8 GM/DL 8.4 GM/DL Hematocrit 25.1 % 24.2 % Mean Corpuscular Volume 90.2 FL 90.6 FL Mean Corpuscular Hemoglobin 31.6 PG 31.5 PG Mean Corpuscular Hemoglobin Concent 35.0 % 34.8 % Red Cell Distribution Width 13.7 % 13.5 % Platelet Count 23 TH/MM3 63 TH/MM3 Mean Platelet Volume 9.0 FL 8.2 FL CBC Comment AUTO DIFF Differential Total Cells Counted 100 Neutrophils % (Manual) 83 % Band Neutrophils % 10 % Lymphocytes % 5 % Monocytes % 2 % Neutrophils # (Manual) 14.5 TH/MM3 Differential Comment FINAL DIFF MANUAL Toxic Vacuolation PRESENT Platelet Estimate LOW Platelet Morphology Comment NORMAL Laboratory Tests Test 01/02/18 23:20 01/03/18 01:40 01/03/18 13:09 01/04/18 03:40 Blood Urea Nitrogen 69 MG/DL 43 MG/DL Creatinine 2.23 MG/DL 1.26 MG/DL Random Glucose 141 MG/DL 120 MG/DL Total Protein 9.3 GM/DL 6.2 GM/DL Albumin 2.7 GM/DL 1.8 GM/DL Calcium Level 9.3 MG/DL 7.1 MG/DL Magnesium Level 2.6 MG/DL 2.2 MG/DL Alkaline Phosphatase 321 U/L 170 U/L Aspartate Amino Transf (AST/SGOT) 61 U/L 42 U/L Alanine Aminotransferase (ALT/SGPT) 43 U/L 27 U/L Total Bilirubin 1.0 MG/DL 1.4 MG/DL Sodium Level 129 MEQ/L 134 MEQ/L Potassium Level 3.7 MEQ/L 4.0 MEQ/L Chloride Level 93 MEQ/L 103 MEQ/L Carbon Dioxide Level 23.5 MEQ/L 22.7 MEQ/L Anion Gap 13 MEQ/L 8 MEQ/L Estimat Glomerular Filtration Rate 29 ML/MIN 57 ML/MIN Lactic Acid Level 4.0 mmol/L 2.0 mmol/L Total Creatine Kinase 927 U/L Creatine Kinase MB 20.4 NG/ML Creatine Kinase MB % 2.2 % Troponin I LESS THAN 0.02 NG/ML C-Reactive Protein 33.30 MG/DL B-Type Natriuretic Peptide 44 PG/ML Lipase 112 U/L Lactate Dehydrogenase 204 U/L Phosphorus Level 2.1 MG/DL Protein Corrected Calcium 7.6 MG/DL Microbiology Date/Time Source Procedure Growth Status 01/03/18 13:25 Blood Peripheral Aerobic Blood Culture - Preliminary Gram Negative Yovanny Resulted 01/03/18 13:25 Blood Peripheral Anaerobic Blood Culture - Preliminary NO GROWTH IN 1 DAY Resulted 01/03/18 13:09 Blood Peripheral Aerobic Blood Culture - Preliminary Gram Negative Yovanny Resulted 01/03/18 13:09 Blood Peripheral Anaerobic Blood Culture - Preliminary NO GROWTH IN 1 DAY Resulted 01/02/18 23:20 Blood Peripheral Aerobic Blood Culture - Preliminary Escherichia Coli Resulted 01/02/18 23:20 Anaerobic Blood Culture - Preliminary Escherichia Coli Resulted 01/02/18 23:15 Blood Peripheral Aerobic Blood Culture - Preliminary Escherichia Coli Resulted 01/02/18 23:15 Anaerobic Blood Culture - Preliminary Escherichia Coli Resulted 01/02/18 23:35 Urine Clean Catch Urine Culture - Preliminary Gram Negative Yovanny Resulted 01/03/18 07:20 Wound Back Fungal Smear - Final NO FUNGAL ELEMENTS SEEN. Resulted 01/03/18 07:20 Wound Back Fungal Culture Pending Resulted 01/03/18 07:20 Wound Back Acid Fast Stain - Final NO ACID FAST BACILLI SEEN Resulted 01/03/18 07:20 Wound Back Mycobacterial Culture Pending Resulted 01/03/18 07:20 Wound Back Gram Stain - Final Resulted 01/03/18 07:20 Wound Culture - Preliminary Gram Negative Yovanny Resulted Imaging Last Impressions Thoracic Spine MRI 01/03/18 Signed Impressions: Service Date/Time: Wednesday, January 03, 2018 00:38 - CONCLUSION: Multilevel disc abnormalities. Severe canal stenosis at T2-3 and T5-6 with cord compression and mild signal changes in the cord at T2-3 and moderate signal changes within the cord at T5-6. Less severe changes at L2 additional levels as described. Harley Herrera MD Lumbar Spine MRI 01/03/18 Signed Impressions: Service Date/Time: Wednesday, January 03, 2018 00:38 - CONCLUSION: Complete or near complete canal obliteration at L2-3, L3-4 and L4-5 with less severe compromise at L1-2 and T12-L1. Harley Herrera MD Cervical Spine MRI 01/03/18 Signed Impressions: Service Date/Time: Wednesday, January 03, 2018 00:38 - CONCLUSION: Severe multilevel canal stenosis. Findings appear to be most critical at C4-5 and C5-6 where AP canal dimension is reduced to 4-5 mm, however also quite severe at C2-3 and C3-4. Harley Herrera MD Chest X-Ray 01/02/18 [id number] Signed Impressions: Service Date/Time: Tuesday, January 02, 2018 23:11 - CONCLUSION: Mild basilar atelectasis or scarring. Harley Herrera MD Physical Exam GENERAL: This is a well-nourished, well-developed patient, in no apparent distress. SKIN: No rashes, ecchymoses or lesions. Cool and dry. HEAD: Atraumatic. Normocephalic. No temporal or scalp tenderness. EYES: Pupils equal round and reactive. No scleral icterus. No injection or drainage. ENT: Intubated. NECK: Trachea midline. Supple, nontender, no meningeal signs. CARDIOVASCULAR: HS audible. RESPIRATORY: Clear to auscultation. Breath sounds equal bilaterally. No wheezes , rales, or rhonchi. GASTROINTESTINAL: Abdomen soft, non-tender, nondistended. MUSCULOSKELETAL: Extremities without clubbing, cyanosis, or edema. NEUROLOGICAL: Opened eyes spontaneously. No response to painful stimuli in LE and UE on my exam. Psych could not be assessed. IV line sites with no e.o infection. Assessment & Plan Remarks Severe Sepsis present on admission (leucocytosis, Tachycardia, source: bacteremia and epidural abscess. E.coli bacteremia (CTX M negative) E.Coli UTI recent prostate biopsy. 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 Recent history of prostate biopsy as risk factor for E.coli bacteremia. Paraparesis present on admission. Recs: Continue Cefepime IV Wound cx, urine CX and Blood cx positive for GNR. DC Vanco IV Repeat blood cultures tomorrow am. 2D ECHO to look for e/o vegetations: line technician in room. Needs CT Chest/abd pelvis in future to look for prostate abscess etc as source of infection or evidence of distant dissemination to Spleen,Liver etc. Urology consult (recent prostate biopsy) Follow cultures Follow clinically. dw Addendum at 9:53 pm/ BCX with CTX M negative (ESBL negative) susceptibility pending. Continue Cefepime IV as clinically stable. One time dose of Genta IV 80 mg overnight due to fevers. Shanda Charles MD Jan 04, 2018 14:38
[2018-01-04] MEDS: CEFEPIME INJ 2,000 MG in SODIUM CHLORIDE 0.9% INJ 100 ML IV SCH ×2 (16:00→23:35)
--- NOTE | 2018-01-04 16:32 | HHI.CCPN ---
Subjective Remarks/Hospital Course 67-year-old male who underwent a prostate biopsy one week ago, on 12/27/17. On the evening of 12/29/17 he developed fever and chills, low back pain, and lower extremity numbness and paresthesias and muscle spasm. He was seen by his primary care physician and was given medication including muscle relaxant. The symptoms persisted and he returned to his primary care physician on Wednesday, and was given additional medications including Cipro. He awoke on 01/02/2018 with increased lower extremity weakness and numbness, and fell in the shower in the morning, after which he was unable to ambulate or lift his legs off the bed, and continued to experience pain in the lower back. He went to the emergency room at [facility], and was given additional medication injections. He could not lift his legs off the bed or ambulate in the emergency room, and was taken out to his car and lifted into the car and sent home again. He fell in the driveway again trying to get back into the house. He apparently did not urinate for the entire day. He has no complaint of pain which is numbness paresthesias in the upper extremities. No numbness or paresthesias over the chest or abdomen or pelvic region. The MRI of thoracic spine shows severe canal stenosis at T2-3 and T5-6 level with cord compressions, complete or near complete canal obliteration at L2 -3 L3-4 and severe multilevel canal stenosis of the C-spine. The patient is emergently taken to operating room by Dr. Chakraborty. Subjective 01/04: Extubated late afternoon yesterday without any complications. Some sensation bilateral lower extremities. Strength 4-5 bilateral upper extremities. Afebrile. Hemodynamically stable. Objective Vital Signs Date Time Temp Pulse Resp B/P (MAP) Pulse Ox O2 Delivery O2 Flow Rate FiO2 01/04/18 09:51 98 01/04/18 07:45 98.5 83 23 151/68 01/04/18 03:45 21 01/03/18 19:00 Room Air 01/03/18 15:30 3.00 Intake and Output 01/04/18 01/04/18 01/04/18 07:59 15:59 23:59 Intake Total 960 ml 624 ml Output Total 2915 ml Balance -1955 ml 624 ml Result Diagram: 4/3/18 1135 01/04/18 0340 Other Results Microbiology Date/Time Source Procedure Growth Status 01/03/18 13:25 Blood Peripheral Aerobic Blood Culture - Preliminary Gram Negative Yovanny Resulted 01/03/18 13:25 Blood Peripheral Anaerobic Blood Culture - Preliminary NO GROWTH IN 1 DAY Resulted 01/02/18 23:35 Urine Clean Catch Urine Culture - Preliminary Gram Negative Yovanny Resulted 01/03/18 07:20 Wound Back Fungal Smear - Final NO FUNGAL ELEMENTS SEEN. Resulted 01/03/18 07:20 Wound Back Fungal Culture Pending Resulted Imaging Last Impressions Thoracic Spine MRI 01/03/18 0000 Signed Impressions: Service Date/Time: Wednesday, January 03, 2018 00:38 - CONCLUSION: Multilevel disc abnormalities. Severe canal stenosis at T2-3 and T5-6 with cord compression and mild signal changes in the cord at T2-3 and moderate signal changes within the cord at T5-6. Less severe changes at L2 additional levels as described. Harley Herrera MD Lumbar Spine MRI 01/03/18 0000 Signed Impressions: Service Date/Time: Wednesday, January 03, 2018 00:38 - CONCLUSION: Complete or near complete canal obliteration at L2-3, L3-4 and L4-5 with less severe compromise at L1-2 and T12-L1. Harley Herrera MD Cervical Spine MRI 01/03/18 0000 Signed Impressions: Service Date/Time: Wednesday, January 03, 2018 00:38 - CONCLUSION: Severe multilevel canal stenosis. Findings appear to be most critical at C4-5 and C5-6 where AP canal dimension is reduced to 4-5 mm, however also quite severe at C2-3 and C3-4. Harley Herrera MD Chest X-Ray 01/02/18 [id number] Signed Impressions: Service Date/Time: Tuesday, January 02, 2018 23:11 - CONCLUSION: Mild basilar atelectasis or scarring. Harley Herrera MD Objective Remarks GENERAL: 67-year-old male currently resting in bed on room air no acute distress SKIN: Warm and dry. Well perfused. No rash HEAD: Normocephalic. EYES: No scleral icterus. No injection or drainage. NECK: Supple, trachea midline. No JVD or lymphadenopathy. CARDIOVASCULAR: RRR. S1, S2 predose for without murmur RESPIRATORY: Breath sounds equal bilaterally. No accessory muscle use. GASTROINTESTINAL: Abdomen soft, non-tender, nondistended. MUSCULOSKELETAL: No significant peripheral edema BACK: Incision from laminectomy clean dry and intact NEURO EXAM: Cranial nerves II through XII are intact, strength is 5/5 in bilateral upper extremities. Strength is 1/5 in bilateral lower extremities. Negative patellar DTRs bilaterally. Sensation to light touch not pinprick bilateral lower extremities below the knees Urinary Catheter: Yes Assessment to: Continue Reyna insert reason: Prolonged Immobilization Vascular Central Line Catheter: No Assessment to: Continue A/P Assessment and Plan Neuro/Psych: Postop day #1 Bilateral L1-2, L2-3, L3 4, L4 5 decompressive semi-laminectomy, medial facetectomy for spinal canal decompression. Depression/anxiety C-spine revealed cord compression C2 through C4 and C4 through C6. T-spine 2-3/ 5 6 and lumbar spine T throughout L2 with essentially ablation of the cord from L2 through L5. Status post emergent surgery per Dr. Chakraborty /2 Acetaminophen 650 mg p.o. every 6 hours as needed pain 1-5/fever Morphine sulfate 2 mg IV every 8 as needed pain 6 or 10 Neurochecks CV: Dyslipidemia Currently on normal saline 84 cc an hour Not requiring vasopressors and/or antihypertensives Currently on atorvastatin 40 mg p.o. daily. Hospital substitution for rosuvastatin 20 mg p.o. daily Resp: Nasal cannula to maintain saturations greater than or equal to 92% Incentive spirometry while awake GI: Advance diet as tolerated Famotidine for GI prophylaxis Docusate sodium/senna 1 tablet twice daily for bowel regimen : BPH Maintain Reyna catheter Currently on tamsulosin 0.4 mg p.o. daily Recent prostate biopsy. Pathology pending Endo: Sliding scale insulin Accu-Cheks to maintain euglycemia/low regimen Renal: Acute kidney injury Avoid nephrotoxic drugs Monitor urine output Accurate I's and O's Heme: Thrombocytopenia likely secondary to sepsis Haptoglobin high. LDH normal. Peripheral smear no signs of schistocytes total bilirubin normal. Status post 2 pack platelets today 01/04. Followed by hematology ID: Gram-negative yovanny bacteremia Currently on cefepime day #2 2 g IV every 8 hours and vancomycin Pertinent cultures 4/2 -blood cultures 2 -gram-negative rods 4/2 -wound culture -gram-negative rods 4/1 -blood cultures 2 -E. coli FEN Replace electrolytes as clinically indicated MSK: Osteoporosis Holding meloxicam 7.5 mg p.o. twice daily. PT/OT evaluate and treat Access -Utilize peripheral IV. Central line if indicated Prophylaxis -GI -famotidine -DVT -SCD/holding pharmacologic prophylaxis until acute neurosurgery/severe thrombocytopenia Level 2 follow-up. Patient stable from a critical care standpoint. Assign care to hospitalist in a.m. 4/4 a.m. Transfer from ICU okayed with neurosurgery Renato Triplett MD Jan 04, 2018 16:32
--- NOTE | 2018-01-04 16:57 | PD.CONS ---
HPI Service Urology Consult Requested By Dr Charles Reason for Consult Urosepsis post prostate biopsy Primary Care Physician Jamin Latif MD Diagnosis: History of Present Illness 67-year-old male known to our team, who underwent a prostate biopsy one week ago, on 12/27/17. No pathology available yet. On the evening of 12/29/17 he developed fever and chills, low back pain, and lower extremity numbness and paresthesias and muscle spasm. He was seen by his primary care physician and was given medication including muscle relaxant. The symptoms persisted and progressed he fell in the shower, so he went to [facility] on but was not evaluated properly, as per pt and was d/c home. he fell again when tried to get out from the car and was taken to [facility] on Wednesday. He could not lift his legs off the bed or ambulate in the emergency room, and was taken out to his car and lifted into the car and sent home again. He apparently did not urinate for the entire day. He has no complaint of pain which is numbness paresthesias in the upper extremities. No numbness or paresthesias over the chest or abdomen or pelvic region. The MRI of thoracic spine shows severe canal stenosis at T2-3 and T5-6 level with cord compressions, complete or near complete canal obliteration at L2 -3 L3-4 and severe multilevel canal stenosis of the C-spine. The patient is emergently taken to operating room by Dr. Chakraborty He also found to have a UTI/bacteremia and retention, so Peck catheter was placed, he is still with peck. Takes flomax daily. Pt today admits that feels better. still in bed, PT is on board. Legs sensation is minimally improving. VS and Labs are improving. His recent UC and blood culture are growing Gm- rods Review of Systems Except as stated in HPI: all other systems reviewed are Neg Past Family Social History Past Medical History No history of significant cardiac pulmonary gastrointestinal disease. History of prostate hypertrophy Hypothyroidism Depression Past Surgical History Tonsillectomy Prostate biopsy Kidney surgery Allergies: Coded Allergies: No Known Allergies (Unverified , 01/02/18) Family History History father from "bone cancer" Social History He smokes 1 pack cigarettes a day Occasional alcohol No illicit drugs Physical Exam Vital Signs Date Time Temp Pulse Resp B/P (MAP) Pulse Ox O2 Delivery O2 Flow Rate FiO2 01/04/18 09:51 98 01/04/18 07:45 98.5 83 23 151/68 98 01/04/18 07:45 98.5 83 23 151/68 98 01/04/18 07:30 98.5 76 18 153/77 100 01/04/18 07:30 98.5 77 18 153/77 100 01/04/18 06:46 18 01/04/18 06:00 88 01/04/18 04:00 99.0 82 18 152/71 (98) 98 01/04/18 04:00 82 01/04/18 03:45 98 21 01/04/18 02:00 88 01/04/18 00:00 98.9 84 14 142/74 (96) 99 01/04/18 00:00 84 01/03/18 22:00 90 01/03/18 21:50 100 21 01/03/18 20:00 98.4 90 18 140/71 (94) 99 140/71 (94) 01/03/18 20:00 90 01/03/18 19:00 100 Room Air Physical Exam GENERAL: This is a well-nourished, well-developed patient, in no apparent distress. SKIN: No rashes, ecchymoses or lesions. Cool and dry. CARDIOVASCULAR: Regular rate and rhythm without murmurs, gallops, or rubs. RESPIRATORY: Clear to auscultation. Breath sounds equal bilaterally. No wheezes , rales, or rhonchi. GASTROINTESTINAL: Abdomen soft, non-tender, nondistended. GENITOURINARY:No CVAT, Peck is in place draining well, no hematuria MUSCULOSKELETAL: Extremities without clubbing, cyanosis, or edema. NEUROLOGICAL: Awake and alert. . Normal speech. Lab results reviewed: Yes Laboratory Tests Test 01/04/18 03:40 01/04/18 11:35 White Blood Count 15.6 16.8 Red Blood Count 2.78 2.67 Hemoglobin 8.8 8.4 Hematocrit 25.1 24.2 Mean Corpuscular Volume 90.2 90.6 Mean Corpuscular Hemoglobin 31.6 31.5 Mean Corpuscular Hemoglobin Concent 35.0 34.8 Red Cell Distribution Width 13.7 13.5 Platelet Count 23 63 Mean Platelet Volume 9.0 8.2 CBC Comment AUTO DIFF Differential Total Cells Counted 100 Neutrophils % (Manual) 83 Band Neutrophils % 10 Lymphocytes % 5 Monocytes % 2 Neutrophils # (Manual) 14.5 Differential Comment FINAL DIFF MANUAL Toxic Vacuolation PRESENT Platelet Estimate LOW Platelet Morphology Comment NORMAL Blood Urea Nitrogen 43 Creatinine 1.26 Random Glucose 120 Total Protein 6.2 Albumin 1.8 Calcium Level 7.1 Phosphorus Level 2.1 Magnesium Level 2.2 Alkaline Phosphatase 170 Aspartate Amino Transf (AST/SGOT) 42 Alanine Aminotransferase (ALT/SGPT) 27 Total Bilirubin 1.4 Sodium Level 134 Potassium Level 4.0 Chloride Level 103 Carbon Dioxide Level 22.7 Anion Gap 8 Estimat Glomerular Filtration Rate 57 Protein Corrected Calcium 7.6 Random Vancomycin Level 8.0 Hepatitis A IgM Antibody NONREACTIVE Hepatitis B Surface Antigen NONREACTIVE Hepatitis B Core IgM Antibody NONREACTIVE Hepatitis C IgG Antibody NONREACTIVE HIV (1&2) Ab and P24 Ag, 4th Gener NONREACTIVE Date/Time Source Procedure Growth Status 01/03/18 13:25 Blood Peripheral Aerobic Blood Culture - Preliminary Gram Negative Yovanny Resulted 01/03/18 13:25 Blood Peripheral Anaerobic Blood Culture - Preliminary NO GROWTH IN 1 DAY Resulted 01/02/18 23:35 Urine Clean Catch Urine Culture - Preliminary Gram Negative Yovanny Resulted 01/03/18 07:20 Wound Back Fungal Smear - Final NO FUNGAL ELEMENTS SEEN. Resulted 01/03/18 07:20 Wound Back Fungal Culture Pending Resulted Result Diagram: 01/04/18 1135 01/04/18 0340 Personally reviewed images: No Imaging Last Impressions Thoracic Spine MRI 01/03/18 0000 Signed Impressions: Service Date/Time: Wednesday, January 03, 2018 00:38 - CONCLUSION: Multilevel disc abnormalities. Severe canal stenosis at T2-3 and T5-6 with cord compression and mild signal changes in the cord at T2-3 and moderate signal changes within the cord at T5-6. Less severe changes at L2 additional levels as described. Harley Herrera MD Lumbar Spine MRI 01/03/18 0000 Signed Impressions: Service Date/Time: Wednesday, January 03, 2018 00:38 - CONCLUSION: Complete or near complete canal obliteration at L2-3, L3-4 and L4-5 with less severe compromise at L1-2 and T12-L1. Harley Herrera MD Cervical Spine MRI 01/03/18 0000 Signed Impressions: Service Date/Time: Wednesday, January 03, 2018 00:38 - CONCLUSION: Severe multilevel canal stenosis. Findings appear to be most critical at C4-5 and C5-6 where AP canal dimension is reduced to 4-5 mm, however also quite severe at C2-3 and C3-4. Harley Herrera MD Chest X-Ray 01/02/18 2078 Signed Impressions: Service Date/Time: Tuesday, January 02, 2018 23:11 - CONCLUSION: Mild basilar atelectasis or scarring. Harley Herrera MD Assessment and Plan Assessment and Plan 67 y.o male s/p prostate biopsy last week, no pathology results yet Admitted for urosepsis and C and T spine stenosis, managed surgically No acute intervention needed Continue care as per primary team and Neurosurgical and ID teams. Follow up on cultures and adjust antbx based on C&s Keep peck catheter as needed to monitor I&O and until pt is strong enough to use restroom Flomax 0.4mg daily Further treatment will depend on biopsy results Urology remains available as needed Discussed Condition With Dr Juarez attending who agrees with this plan Marcin Kidd Jan 04, 2018 16:57
--- NOTE | 2018-01-04 18:00 | ECHRPT ---
Indication: POSS SEPSIS, R/O ENDOCARDITIS CONCLUSIONS Technically difficult study Mildly dilated left ventricle. The left ventricular systolic function is low normal with an estimated ejection fraction in the rang e of 50- 55%. The left ventricular systolic function is low normal with an estimated ejection fraction in the rang e of 50- 55%. Mildly dilated left ventricle. Doppler parameters are consistent with impaired left ventricular relaxtion (grade 1 diastolic dysfun ction). Trace mitral valve regurgitation. There is trace tricuspid valve regurgitation. BP: 152 / 71 HR: 82 Rhythm: Sinus MEASUREMENTS (Male / Female) Normal Values Technical Quality:Technically difficult study 2D ECHO LV Diastolic Diameter PLAX 5.9 cm 4.2 - 5.9 / 3.9 - 5.3 cm LV Systolic Diameter PLAX 4.6 cm IVS Diastolic Thickness 1.0 cm 0.6 - 1.0 / 0.6 - 0.9 cm LVPW Diastolic Thickness 1.0 cm 0.6 - 1.0 / 0.6 - 0.9 cm LV Relative Wall Thickness 0.3 LVOT Diameter 2.3 cm Aortic Root Diameter 3.0 cm LA Systolic Diameter LX 3.2 cm 3.0 - 4.0 / 2.7 - 3.8 cm DOPPLER AV Peak Velocity 128.0 cm/s AV Peak Gradient 6.6 mmHg AV Mean Gradient 3.0 mmHg AV Velocity Time Integral 18.4 cm LVOT Peak Velocity 104.0 cm/s LVOT Peak Gradient 4.3 mmHg LVOT Velocity Time Integral 16.0 cm AV Area Cont Eq vti 3.6 cm AV Area Cont Eq pk 3.4 cm Mitral E Point Velocity 73.1 cm/s Mitral A Point Velocity 89.8 cm/s Mitral E to A Ratio 0.8 LV E' Lateral Velocity 13.7 cm/s Mitral E to LV E' Lateral Ratio 5.3 LV E' Septal Velocity 7.9 cm/s Mitral E to LV E' Septal Ratio 9.3 TR Peak Velocity 171.0 cm/s TR Peak Gradient 11.7 mmHg Right Atrial Pressure 10.0 mmHg Pulmonary Artery Systolic Pressu 21.7 mmHg Right Ventricular Systolic Press 21.7 mmHg FINDINGS LEFT VENTRICLE Mildly dilated left ventricle. Wall thickness is normal. The left ventricular systolic function is low normal with an estimated ejection fraction in the rang e of 50- 55%. Doppler parameters are consistent with impaired left ventricular relaxtion (grade 1 diastolic dysfun ction). RIGHT VENTRICLE Grossly normal LEFT ATRIUM The left atrial size is mildly dilated. RIGHT ATRIUM The right atrial size is mildly dilated. ATRIAL SEPTUM No atrial level shunt is demonstrated by color flow Doppler interrogation. AORTA The aortic root and proximal ascending aorta are not well visualized. MITRAL VALVE Grossly normal. No mitral valve stenosis. Trace mitral valve regurgitation. AORTIC VALVE Aortic valve sclerosis is present. No aortic valve regurgitation. No aortic valve stenosis. TRICUSPID VALVE Structurally normal tricuspid valve. There is trace tricuspid valve regurgitation. No tricuspid valve stenosis. PULMONARY VALVE The pulmonary valve is not well visualized. VESSELS The inferior vena cava was not well visualized. PERICARDIUM No pericardial effusion. Fermín Villegas DO (Electronically Signed) Final Date:04 January 2018 17:59
[2018-01-04] MEDS: CHLORHEXIDINE GLUCONATE 2 % 1 PACK (2 CLOTHS) TOP SCH (19:32)
[2018-01-04] MEDS ORDERED: ACETAMINOPHEN 1000 MG/100 ML 100 ML IV ONE (19:45)
[2018-01-04] MEDS: FAMOTIDINE 20 MG TAB PO SCH (20:19)
[2018-01-04] MEDS: TAMSULOSIN HCL 0.4 MG CAP PO SCH (20:20)
[2018-01-04] MEDS ORDERED: GENTAMICIN 80 MG PREMIX 100 ML IV ONE (22:00)
[2018-01-05] VITALS (17 sets, daily range): BP systolic 131–174; BP diastolic 73–111; PULSE 97–140; RESP 16–22; TEMP 97.9–102.5; O2SAT 86–99
[2018-01-05] MEDS: MORPHINE SULFATE 4 MG/ML INJ IV PUSH PRN ×4 (00:43→08:04)
[2018-01-05] MEDS: ARTIFICIAL TEARS OPTH SOLN 15 ML BTL EACH EYE SCH ×4 (00:44→20:43)
[2018-01-05] MEDS: RESP: ALBUTEROL 2.5 MG/IPRATROPIUM 0.5 MG NEB (SCH) NEB ×3 (04:16→20:36)
[2018-01-05] MEDS: SODIUM CHLOR 0.9% 1000 ML INJ 1,000 ML IV SCH (05:05)
[2018-01-05 07:40] LABS: HEMATOCRIT 27.4 % (39.0-51.0); HEMOGLOBIN 9.4 GM/DL (13.0-17.0); MEAN CORPUSCULAR HEMOGLOBIN 31.6 PG (27.0-34.0); MEAN CORPUSCULAR HGB CONC 34.4 % (32.0-36.0); MEAN PLATELET VOLUME 9.2 FL (7.0-11.0); PLATELET COUNT 55 TH/MM3 (150-450); RED BLOOD COUNT 2.98 MIL/MM3 (4.50-5.90); RED CELL DISTRIBUTION WIDTH 13.5 % (11.6-17.2); WHITE BLOOD COUNT 13.9 TH/MM3 (4.0-11.0)
[2018-01-05] MEDS: FAMOTIDINE 20 MG TAB PO SCH ×2 (08:03→20:12)
[2018-01-05] MEDS: ATORVASTATIN 40 MG TAB PO SCH (08:03)
[2018-01-05] MEDS: METHOCARBAMOL 500 MG TAB PO SCH ×4 (08:03→20:12)
[2018-01-05] MEDS: DOCUSATE SODIUM 50 MG/SENNA 8.6 MG TAB PO SCH ×2 (08:03→20:12)
[2018-01-05] MEDS: CEFEPIME INJ 2,000 MG in SODIUM CHLORIDE 0.9% INJ 100 ML IV SCH ×3 (08:03→23:37)
[2018-01-05 08:12] LABS: ALBUMIN 1.8 GM/DL (3.4-5.0); ALKALINE PHOSPHATASE 319 U/L (45-117); ALT (GPT) 48 U/L (12-78); AST (GOT) 65 U/L (15-37); BICARBONATE 23.3 MEQ/L (21.0-32.0); BLOOD UREA NITROGEN 28 MG/DL (7-18); CALCIUM 7.7 MG/DL (8.5-10.1); CHLORIDE 99 MEQ/L (98-107); CREATININE 1.07 MG/DL (0.60-1.30); GLOMERULAR FILTRATION RATE 69 ML/MIN (>89); GLUCOSE,RANDOM 92 MG/DL (74-106); MAGNESIUM 1.7 MG/DL (1.5-2.5); PHOSPHORUS 1.7 MG/DL (2.5-4.9); SODIUM (NA) 131 MEQ/L (136-145); TOTAL BILIRUBIN ADULT 2.3 MG/DL (0.2-1.0); TOTAL PROTEIN 6.6 GM/DL (6.4-8.2)
[2018-01-05] MEDS: SODIUM CHLORIDE 0.9% FLUSH 10 ML FLUSH IV FLUSH SCH ×2 (08:13→20:12)
[2018-01-05 08:56] LABS: BANDS 9 % (0-6); LYMPHOCYTES 5 % (9-44); MONOCYTES 4 % (0-8); NEUTROPHIL # MANUAL DIFF 12.6 TH/MM3 (1.8-7.7); POLYS (SEG NEUTROPHILS) 82 % (16-70)
[2018-01-05 08:58] LABS: TOXIC GRANULATION 1+ (NORMAL); TOXIC VACUOLATION PRESENT (NONE SEEN)
[2018-01-05] MEDS: ACETAMINOPHEN 325 MG TAB PO PRN (10:28)
--- NOTE | 2018-01-05 11:14 | HHI.PR ---
Subjective Remarks Rapid response activated on patient. As per RN report the patient was very lethargic and hard to arouse. Patient decided into the mid 80s. The patient denies chest pain or shortness of breath. Patient has a fever of 102F Objective Vitals Vital Signs Date Time Temp Pulse Resp B/P (MAP) Pulse Ox O2 Delivery O2 Flow Rate FiO2 01/05/18 09:19 93 01/05/18 09:03 18 01/05/18 08:00 97.9 97 16 157/74 (101) 94 01/05/18 04:45 98.5 101 20 158/83 (108) 98 01/05/18 04:19 98 21 01/04/18 22:43 98.4 84 18 135/71 (92) 99 01/04/18 20:00 122 01/04/18 20:00 102.7 122 27 133/67 (89) 97 01/04/18 19:00 94 Room Air 01/04/18 16:00 94 01/04/18 16:00 100.3 94 24 144/72 (96) 96 Arterial Line 01/04/18 14:00 108 01/04/18 12:00 98 01/04/18 12:00 98.8 98 24 150/74 (99) 97 Arterial Line I/O 01/04/18 01/04/18 01/04/18 01/05/18 01/05/18 01/05/18 07:00 15:00 23:00 07:00 15:00 23:00 Intake Total 960 ml 624 ml 4980 ml 1200 ml Output Total 2915 ml 3135 ml 2100 ml Balance -1955 ml 624 ml 1845 ml -900 ml Intake Oral 960 ml 3360 ml 1200 ml IV Total 1620 ml Platelets 624 ml Output Urine Total 2900 ml 3125 ml 2100 ml Drainage Total 15 ml 10 ml # Bowel Movements 0 0 0 Result Diagram: 01/05/18 0650 01/05/18 0650 Imaging Last Impressions Thoracic Spine MRI 01/03/18 0000 Signed Impressions: Service Date/Time: Wednesday, January 03, 2018 00:38 - CONCLUSION: Multilevel disc abnormalities. Severe canal stenosis at T2-3 and T5-6 with cord compression and mild signal changes in the cord at T2-3 and moderate signal changes within the cord at T5-6. Less severe changes at L2 additional levels as described. Harley Herrera MD Lumbar Spine MRI 01/03/18 0000 Signed Impressions: Service Date/Time: Wednesday, January 03, 2018 00:38 - CONCLUSION: Complete or near complete canal obliteration at L2-3, L3-4 and L4-5 with less severe compromise at L1-2 and T12-L1. Harley Herrera MD Cervical Spine MRI 01/03/18 0000 Signed Impressions: Service Date/Time: Wednesday, January 03, 2018 00:38 - CONCLUSION: Severe multilevel canal stenosis. Findings appear to be most critical at C4-5 and C5-6 where AP canal dimension is reduced to 4-5 mm, however also quite severe at C2-3 and C3-4. Harley Herrera MD Chest X-Ray 01/02/182 Signed Impressions: Service Date/Time: Tuesday, January 02, 2018 23:11 - CONCLUSION: Mild basilar atelectasis or scarring. Harley Herrera MD Objective Remarks GENERAL: 67-year-old male currently in bed SKIN: Warm and diaphoretic with profuse sweating. HEAD: Normocephalic. EYES: No scleral icterus. No injection or drainage. NECK: Supple, trachea midline. No JVD or lymphadenopathy. CARDIOVASCULAR: S1-S2 with regular rate and rhythm, tachycardic, no murmur rubs or gallops appreciated. RESPIRATORY: Breath sounds equal bilaterally. No accessory muscle use. GASTROINTESTINAL: Abdomen soft, non-tender, nondistended. MUSCULOSKELETAL: No significant peripheral edema BACK: Incision from laminectomy clean dry and intact NEURO EXAM: Cranial nerves II through XII are intact, strength is 5/5 in bilateral upper extremities. Strength is 1/5 in bilateral lower extremities. Negative patellar DTRs bilaterally. Sensation to light touch not pinprick bilateral lower extremities below the knees Urinary Catheter: Yes Procedures L1 through L5 decompressive laminectomy. Medications and IVs Current Medications Medications (Trade) Dose Ordered Sig/Kaveh Route Start Time Stop Time Status Last Admin (Robaxin) 500 mg QID PO 01/03/18 09:00 01/05/18 08:03 (Flomax) 0.4 mg HS PO 01/03/18 21:00 01/04/18 20:20 (Lipitor) 40 mg DAILY PO 01/03/18 09:00 01/05/18 08:03 Sodium Chloride 1,000 ml @ 84 mls/hr [id number] IV 01/03/18 04:50 01/05/18 05:05 (NS Flush) 2 ml UNSCH PRN IV FLUSH 01/03/18 05:00 (NS Flush) 2 ml BID IV FLUSH 01/03/18 09:00 01/04/18 20:19 (Tylenol) 650 mg Q6H PRN PO 01/03/18 05:00 01/05/18 10:28 (Morphine Inj) 2 mg Q2H PRN IV PUSH 01/03/18 05:00 01/05/18 08:04 (Zofran Inj) 4 mg Q6H PRN IV PUSH 01/03/18 05:00 (Restoril) 15 mg HS PRN PO 01/03/18 05:00 (Roxana-Colace) 1 tab BID PO 01/03/18 09:00 01/05/18 08:03 (Milk Of Magnesia Liq) 30 ml Q12H PRN PO 01/03/18 05:00 (Senokot) 17.2 mg Q12H PRN PO 01/03/18 05:00 (Dulcolax Supp) 10 mg DAILY PRN RECTAL 01/03/18 05:00 (Lactulose Liq) 30 ml DAILY PRN PO 01/03/18 05:00 (Tears Naturale Opth Soln) 1 drop Q8HR EACH EYE 01/03/18 14:00 01/05/18 06:13 (Duoneb Neb) 1 ampule Q6HR NEB NEB 01/03/18 10:00 01/05/18 09:19 (Albuterol Neb) 2.5 mg Q2HR NEB PRN NEB 01/03/18 10:00 (Pepcid) 20 mg BID PO 01/04/18 21:00 01/05/18 08:03 Cefepime HCl 2000 mg/Sodium Chloride 100 ml @ 200 mls/hr Q8H IV 01/04/18 16:00 01/05/18 08:03 A/P Problem List: (1) Spinal cord compression ICD Code: G95.20 - Unspecified cord compression Plan: The patient was initially admitted to intensive care unit and managed by the detective private eye. The patient is postop day 1 for bilateral L1 through L5 decompressive laminectomy, medial facetectomy or spinal canal the compression. C-spine revealed cord compression C2 through C4 and C4 through C6. T-spine 2-3/ 5 6 and lumbar spine T throughout L2 with essentially ablation of the cord from L2 through L5. Status post emergent surgery per Dr. Chakraborty 01/03 Continue management as per neurosurgery. The patient has been on IV morphine for pain control. I will start the patient on oral opiates and keep the IV morphine for breakthrough pain only. Continue to monitor neuro checks. (2) Lumbar canal stenosis ICD Code: M48.061 - Spinal stenosis, lumbar region without neurogenic claudication Plan: Management as above. (3) Sepsis ICD Code: A41.9 - Sepsis, unspecified organism Plan: Severe sepsis present on admission -patient with leukocytosis, tachycardia with the source being bacteremia and epidural abscess. Sepsis likely secondary to E. coli bacteremia and E. coli UTI with recent prostate biopsy. Patient also has infective discitis likely secondary to E. coli bacteremia. Patient has a recent history of prostate biopsy at risk factor for E. coli bacteremia. The patient initially started on IV vancomycin and IV cefepime. ID consulted. Vancomycin discontinued on 01/04, the patient currently on IV cefepime. Hold IV fluids until chest x-ray resulted. (4) UTI (urinary tract infection) ICD Code: N39.0 - Urinary tract infection, site not specified Plan: Complicated UTI related to likely prostate biopsy. Urine culture positive for E. coli. ID consulted. Continue antibiotics as per ID. The patient is currently on IV cefepime (5) Acute hypoxemic respiratory failure ICD Code: J96.01 - Acute respiratory failure with hypoxia Plan: Patient with oxygen saturation in the mid 80s and lethargic. Oxygen saturation improved with supplemental oxygen. Check stat chest x-ray, ABG ordered and it showed a pH of 7.52, PCO2 of 27, PO2 of 86. (6) Thrombocytopenia ICD Code: D69.6 - Thrombocytopenia, unspecified Plan: Platelets on admissions 18 K. Status post infusion of platelets. Likely secondary to sepsis. Keep platelets more than 50 K due to recent back surgery. HIV and hepatitis panel negative. (7) VALENCIA (acute kidney injury) ICD Code: N17.9 - Acute kidney failure, unspecified Plan: Likely secondary to prerenal azotemia due to sepsis and dehydration. Creatinine on admission 2.23, treated with IV fluids and trending down. Creatinine down to 1.07 which is possibly close to the patient's baseline. Continue to monitor BUN and creatinine, strict I's and O's, avoid nephrotoxins. (8) Bacteremia ICD Code: R78.81 - Bacteremia Plan: ID following. Continue antibiotics as per ID. Sure blood cultures on 01/02 grew E. coli. Wound culture grew E. coli as well. Blood cultures on 01/03 still positive with gram-negative rods. Blood cultures obtained on 01/05 still pending. (9) Osteoporosis ICD Code: M81.0 - Age-related osteoporosis without current pathological fracture Plan: Hold meloxicam sample 5 mg p.o. twice a day. PT/OT evaluate and treat, however hold PT/OT today given patient worsening clinical condition. Assessment and Plan DVT prophylaxis: SCDs. Discharge Planning Transfer the patient back to the intensive care unit for close follow-up. Problem Qualifiers (1) Lumbar canal stenosis: Qualified Codes: M48.061 - Spinal stenosis, lumbar region without neurogenic claudication (2) UTI (urinary tract infection): Qualified Codes: N30.00 - Acute cystitis without hematuria (3) Osteoporosis: Qualified Codes: M81.0 - Age-related osteoporosis without current pathological fracture Mark Aguilar MD Jan 05, 2018 11:14
--- NOTE | 2018-01-05 11:44 | PD.ONC.PN ---
Subjective Subjective Remarks Late entry, patient seen at ~10AM this morning. Patient is somnolent. Per nurse at bedside he received morphine this AM. Patient's is at bedside and notes that he is lethargic today. Patient speaks and then quickly nods off to sleep. Objective Data Date Time Temp Pulse Resp B/P (MAP) Pulse Ox O2 Delivery O2 Flow Rate FiO2 01/05/18 11:04 97 4.00 01/05/18 09:19 93 01/05/18 09:03 18 01/05/18 08:00 97.9 97 16 157/74 (101) 94 01/05/18 04:45 98.5 101 20 158/83 (108) 98 01/05/18 04:19 98 21 01/04/18 22:43 98.4 84 18 135/71 (92) 99 01/04/18 20:00 122 01/04/18 20:00 102.7 122 27 133/67 (89) 97 01/04/18 19:00 94 Room Air 01/04/18 16:00 94 01/04/18 16:00 100.3 94 24 144/72 (96) 96 Arterial Line 01/04/18 14:00 108 01/04/18 12:00 98 01/04/18 12:00 98.8 98 24 150/74 (99) 97 Arterial Line 01/05/18 01/05/18 01/05/18 07:00 15:00 23:00 Intake Total 1200 ml Output Total 2100 ml Balance -900 ml Result Diagram: 01/05/18 0650 01/05/18 0650 Laboratory Results Laboratory Tests Test 01/05/18 06:50 01/05/18 10:35 White Blood Count 13.9 TH/MM3 Red Blood Count 2.98 MIL/MM3 Hemoglobin 9.4 GM/DL Hematocrit 27.4 % Mean Corpuscular Volume 92.0 FL Mean Corpuscular Hemoglobin 31.6 PG Mean Corpuscular Hemoglobin Concent 34.4 % Red Cell Distribution Width 13.5 % Platelet Count 55 TH/MM3 Mean Platelet Volume 9.2 FL CBC Comment AUTO DIFF Differential Total Cells Counted 100 Neutrophils % (Manual) 82 % Band Neutrophils % 9 % Lymphocytes % 5 % Monocytes % 4 % Neutrophils # (Manual) 12.6 TH/MM3 Differential Comment FINAL DIFF MANUAL Toxic Granulation 1+ Toxic Vacuolation PRESENT Platelet Estimate LOW Platelet Morphology Comment NORMAL Blood Urea Nitrogen 28 MG/DL Creatinine 1.07 MG/DL Random Glucose 92 MG/DL Total Protein 6.6 GM/DL Albumin 1.8 GM/DL Calcium Level 7.7 MG/DL Phosphorus Level 1.7 MG/DL Magnesium Level 1.7 MG/DL Alkaline Phosphatase 319 U/L Aspartate Amino Transf (AST/SGOT) 65 U/L Alanine Aminotransferase (ALT/SGPT) 48 U/L Total Bilirubin 2.3 MG/DL Sodium Level 131 MEQ/L Potassium Level 3.6 MEQ/L Chloride Level 99 MEQ/L Carbon Dioxide Level 23.3 MEQ/L Anion Gap 9 MEQ/L Estimat Glomerular Filtration Rate 69 ML/MIN Blood Gas Puncture Site LT RADIAL Blood Gas Patient Temperature 98.6 Blood Gas HCO3 22 mmol/L Blood Gas Base Excess -0.5 mmol/L Blood Gas Oxygen Saturation 95 % Arterial Blood pH 7.52 Arterial Blood Partial Pressure CO2 27 mmHg Arterial Blood Partial Pressure O2 86 mmHg Arterial Blood Oxygen Content 12.7 Vol % Arterial Blood Carboxyhemoglobin 1.8 % Arterial Blood Methemoglobin 0.7 % Blood Gas Hemoglobin 9.4 G/DL Oxygen Delivery Device NASAL CANNULA Blood Gas Liter Flow 4 L/M Culture Results Microbiology Date/Time Source Procedure Growth Status 01/05/18 04:00 Blood Peripheral Aerobic Blood Culture Pending Received 01/05/18 04:00 Blood Peripheral Anaerobic Blood Culture Pending Received 01/05/18 03:50 Blood Peripheral Aerobic Blood Culture Pending Received 01/05/18 03:50 Blood Peripheral Anaerobic Blood Culture Pending Received 01/03/18 13:25 Blood Peripheral Aerobic Blood Culture - Final Escherichia Coli Resulted 01/03/18 13:25 Blood Peripheral Anaerobic Blood Culture - Preliminary NO GROWTH IN 2 DAYS Resulted 01/03/18 13:09 Blood Peripheral Aerobic Blood Culture - Final Escherichia Coli Resulted 01/03/18 13:09 Blood Peripheral Anaerobic Blood Culture - Preliminary NO GROWTH IN 2 DAYS Resulted 01/02/18 23:20 Blood Peripheral Aerobic Blood Culture - Final Escherichia Coli Complete 01/02/18 23:20 Anaerobic Blood Culture - Final Escherichia Coli Complete 01/02/18 23:15 Blood Peripheral Aerobic Blood Culture - Final Escherichia Coli Complete 01/02/18 23:15 Anaerobic Blood Culture - Final Escherichia Coli Complete 01/02/18 23:35 Urine Clean Catch Urine Culture - Final Escherichia Coli Complete 01/03/18 07:20 Wound Back Fungal Smear - Final NO FUNGAL ELEMENTS SEEN. Resulted 01/03/18 07:20 Wound Back Fungal Culture Pending Resulted 01/03/18 07:20 Wound Back Acid Fast Stain - Final NO ACID FAST BACILLI SEEN Resulted 01/03/18 07:20 Wound Back Mycobacterial Culture Pending Resulted 01/03/18 07:20 Wound Back Gram Stain - Final Complete 01/03/18 07:20 Wound Culture - Final Escherichia Coli Complete Administered Medications Medications (Trade) Dose Ordered Sig/Kaveh Route PRN Reason Start Time Stop Time Status Last Admin Dose Admin Methocarbamol (Robaxin) 500 mg QID PO 01/03/18 09:00 01/05/18 08:03 Tamsulosin HCl (Flomax) 0.4 mg HS PO 01/03/18 21:00 01/04/18 20:20 Atorvastatin Calcium (Lipitor) 40 mg DAILY PO 01/03/18 09:00 01/05/18 08:03 Sodium Chloride 1,000 ml @ 84 mls/hr [id number] IV 01/03/18 04:50 01/05/18 05:05 Sodium Chloride (NS Flush) 2 ml BID IV FLUSH 01/03/18 09:00 01/04/18 20:19 Acetaminophen (Tylenol) 650 mg Q6H PRN PO PAIN 1-5 AND/OR FEVER >101F 01/03/18 05:00 01/05/18 10:28 Morphine Sulfate (Morphine Inj) 2 mg Q2H PRN IV PUSH PAIN SCALE 6 TO 10 01/03/18 05:00 01/05/18 08:04 Senna/Docusate Sodium (Roxana-Colace) 1 tab BID PO 01/03/18 09:00 01/05/18 08:03 Artificial Tears (Tears Naturale Opth Soln) 1 drop Q8HR EACH EYE 01/03/18 14:00 01/05/18 06:13 Albuterol/ Ipratropium (Duoneb Neb) 1 ampule Q6HR NEB NEB 01/03/18 10:00 01/05/18 09:19 Famotidine (Pepcid) 20 mg BID PO 01/04/18 21:00 01/05/18 08:03 Cefepime HCl 2000 mg/Sodium Chloride 100 ml @ 200 mls/hr Q8H IV 01/04/18 16:00 01/05/18 08:03 Objective Remarks GENERAL: Middle aged male, somnolent, lying in bed SKIN: Warm and dry. HEAD: Normocephalic. EYES: No injection or drainage. NECK: Supple, trachea midline. CARDIOVASCULAR: +S1/S2, tachy RESPIRATORY: Breath sounds equal bilaterally. No accessory muscle use. GASTROINTESTINAL: Abdomen soft, non-tender, nondistended. EXTREMITIES: No cyanosis NEUROLOGICAL: lethargic, oriented to time, place and self. moving upper extremities Assessment/Plan Problem List: (1) Thrombocytopenia ICD Codes: D69.6 - Thrombocytopenia, unspecified Plan: 01/04: platelets are 55K today. continue to keep platelets greater than 50K post-surgery. no transfusion needed today. --likely d/t sepsis (2) Sepsis ICD Codes: A41.9 - Sepsis, unspecified organism Plan: --on antibiotics --ID following. (3) Lumbar canal stenosis ICD Codes: M48.061 - Spinal stenosis, lumbar region without neurogenic claudication Plan: --neurosurgery, Dr. Chakraborty following. --s/p laminectomy Assessment 67y/o male with thrombocytopenia admitted with sepsis, spinal stenosis, leg weakness. Now s/p emergent lumbar laminectomy history of BPH, hypothyroidism, depression, kidney stones, hypercholesterolemia. Attending Statement The exam, history, and the medical decision-making described in the above note were completed with the assistance of the mid-level provider. I reviewed and agree with the findings presented. I attest that I had a [id number] encounter with the patient on the same day, and personally performed and documented my assessment and findings in the medical record. No new c/o Plat >50 today. Monitor cbc continue a/b for e.coli sepsis Problem Qualifiers (1) Lumbar canal stenosis: Qualified Codes: M48.061 - Spinal stenosis, lumbar region without neurogenic claudication Dulce Loredo Jan 05, 2018 11:43 Terri Doran MD Jan 05, 2018 16:43
--- NOTE | 2018-01-05 12:00 | RADRPT ---
EXAM DATE/TIME: 01/05/2018 11:07 [facility] COMPARISON: CHEST SINGLE AP, January 02, 2018, 23:11. INDICATIONS : Fever. MEDICAL HISTORY : Renal insufficiency. SURGICAL HISTORY : Tonsillectomy. Kidney surgery. ENCOUNTER: Initial ACUITY: 1 day PAIN SCORE: 0/10 LOCATION: Bilateral chest FINDINGS: There is stable elevation of the left hemidiaphragm. There are some air bronchograms seen in the ang le between the heart and the elevated left hemidiaphragm suggesting the development of subsegmental c onsolidation. The right lung and the remainder of the left lung is clear. Both hemidiaphragms well delineated. CONCLUSION: Findings suggesting new subsegmental area of consolidation in the medial left lower lobe. Jagjit Wilkinson MD on January 05, 2018 at 11:57 Board Certified Radiologist. This report was verified electronically.
--- NOTE | 2018-01-05 12:05 | RADRPT ---
EXAM DATE/TIME: 01/05/2018 11:16 [facility] COMPARISON: No previous studies available for comparison. INDICATIONS : Evaluate for ileus. MEDICAL HISTORY : Renal insufficiency. SURGICAL HISTORY : Tonsillectomy. Kidney surgery. ENCOUNTER: Initial ACUITY: 1 day PAIN SCORE: 4/10 LOCATION: Abdomen, upper quadrant. FINDINGS: There is gas in mildly prominent loops of small and large bowel. Small bowel loops measure up to 3.8 cm in dimension. Mild curvature of the lumbar spine convex to the right with associated degenerativ e changes. CONCLUSION: Mildly prominent gas filled loops of small and large bowel without disproportionately dilated loops. The appearance suggests ileus. Jagjit Wilkinson MD on January 05, 2018 at 12:02 Board Certified Radiologist. This report was verified electronically.
--- NOTE | 2018-01-05 12:17 | HHI.NSPN ---
(Tigre Estrada) History Chief Complaint: Pain to the neck and low back. (Tigre Estrada) Interval History 01/03: 67-year-old male who underwent a prostate biopsy one week ago, on . He states that on the evening of 12/29/17 on into the morning of 12/30/17, he developed fever and chills, low back pain, and lower extremity numbness and paresthesias and muscle spasm. He was seen by his primary care physician and was given medication including muscle relaxant. The symptoms persisted and he returned to his primary care physician on Wednesday , 01/01/18 and was given additional medications including Cipro. He awoke on 01/02/2018 with increased lower extremity weakness and numbness, and fell in the shower in the morning, after which he was unable to ambulate or lift his legs off the bed, and continued to experience pain in the lower back. He went to the emergency room at [facility], and was given additional medication injections. He states that he could not lift his legs off the bed or ambulate in the emergency room, and was taken out to his car and lifted into the car and sent home again. He fell in the driveway again trying to get back into the house. He apparently did not urinate for the entire day. He has no complaint of pain which is numbness paresthesias in the upper extremities. No numbness or paresthesias over the chest or abdomen or pelvic region. The patient was emergently taken to the operating room for a bilateral L1-2, L2- 3, L3 4, L4 5 decompressive semi-laminectomy, medial facetectomy for spinal canal decompression. Post-operatively the patient remained intubated and was admitted to [facility] for further care and monitoring. 01/04: When seen this afternoon the patient has been extubated. He is awake and alert and readily interacts. He does report pain to the neck and the lower back. He has no numbness, tingling or weakness to the upper extremities but does say he will have pain shooting down them if he moves wrong. He denies any pain to the lower extremities but does have numbness to both feet and about the only movement he is able to do is move his knees medially and laterally. Upon examination the patient's sensorimotor exam is improved from pre-operatively 01/05: The patient desaturated this morning and a Halicat was initiated. From the EMR Nursing reported that the patient was lethargic and difficult to arouse. His sat was in the 80s and he did have a fever of 102F. He was therefore transferred back to [facility]. A chest x-ray demonstrated a left lower lobe consolidation. His blood, urine and lumbar spine wound cultures have all come back positive for Escherichia coli. When seen this afternoon the patient was awake, alert and readily interacted. He was visiting with his significant other. His upper extremity examination was variable with some improvement and some decline. His sensation and motor strength to the lower extremities had declined. The surgical incision looked good upon examination and the GUIDO drain was removed. (Tigre Estrada) Exam Results 01/03/18 01/03/18 01/04/18 01/04/18 01/05/18 01/05/18 05:59 17:59 05:59 17:59 05:59 17:59 Intake Total 298 ml 3493 ml 1488 ml 2584 ml 3980 ml 1200 ml Output Total 1250 ml 900 ml 2915 ml 3135 ml 2100 ml Balance 298 ml 2243 ml 588 ml -331 ml 845 ml -900 ml Intake Oral 1200 ml 960 ml 3360 ml 1200 ml IV Total 500 ml 1000 ml 620 ml Platelets 288 ml 393 ml 288 ml 624 ml Blood Product IV Normal Saline Flush 10 ml Other 2600 ml Output Urine Total 650 ml 850 ml 2900 ml 3125 ml 2100 ml Drainage Total 50 ml 15 ml 10 ml Estimated Blood Loss 600 ml # Bowel Movements 0 0 0 0 Vital Signs Date Time Temp Pulse Resp B/P (MAP) Pulse Ox O2 Delivery O2 Flow Rate FiO2 01/05/18 11:46 99 Nasal Cannula 4.00 01/05/18 11:46 98.4 117 20 141/79 (99) 99 01/05/18 11:45 117 01/05/18 11:04 97 4.00 01/05/18 09:19 93 01/05/18 09:03 18 01/05/18 08:00 97.9 97 16 157/74 (101) 94 01/05/18 04:45 98.5 101 20 158/83 (108) 98 01/05/18 04:19 98 21 01/04/18 22:43 98.4 84 18 135/71 (92) 99 01/04/18 20:00 122 01/04/18 20:00 102.7 122 27 133/67 (89) 97 01/04/18 19:00 94 Room Air 01/04/18 16:00 94 01/04/18 16:00 100.3 94 24 144/72 (96) 96 Arterial Line 01/04/18 14:00 108 01/04/18 12:00 98 01/04/18 12:00 98.8 98 24 150/74 (99) 97 Arterial Line 01/04/18 10:00 96 01/04/18 09:51 98 01/04/18 08:00 81 01/04/18 08:00 98.5 81 22 146/77 (100) 99 Arterial Line 01/04/18 07:45 98.5 83 23 151/68 98 01/04/18 07:45 98.5 83 23 151/68 98 01/04/18 07:30 98.5 76 18 153/77 100 01/04/18 07:30 98.5 77 18 153/77 100 01/04/18 07:00 100 Room Air 01/04/18 06:00 88 01/04/18 04:00 99.0 82 18 152/71 (98) 98 01/04/18 04:00 82 01/04/18 03:45 98 21 01/04/18 02:00 88 01/04/18 00:00 98.9 84 14 142/74 (96) 99 01/04/18 00:00 84 01/03/18 22:00 90 01/03/18 21:50 100 21 01/03/18 20:00 98.4 90 18 140/71 (94) 99 140/71 (94) 01/03/18 20:00 90 01/03/18 19:00 100 Room Air 01/03/18 16:00 94 Room Air 01/03/18 16:00 98 01/03/18 16:00 99.8 98 16 139/68 (91) 94 01/03/18 15:30 93 Nasal Cannula 3.00 01/03/18 15:30 98 Nasal Cannula 3 01/03/18 15:30 98 Nasal Cannula 3.00 01/03/18 14:55 35 01/03/18 13:08 98 35 01/03/18 12:00 98.6 104 18 98/56 (70) 98 Automatic Cuff 01/03/18 12:00 104 01/03/18 10:00 40 01/03/18 09:45 100 50 01/03/18 03:14 89 20 165/82 (109) 99 Room Air 01/03/18 00:25 98.5 90 18 182/85 95 01/03/18 00:10 97.9 91 18 161/96 99 01/02/18 23:04 99 18 154/85 (108) 100 Room Air 01/02/18 23:04 103 19 98 Room Air 01/02/18 22:38 97.4 112 18 110/74 (86) 98 (Tigre Estrada) Physical Examination GENERAL: Awake & alert in bed watching TV visiting w/his significant other. His affect is slightly flat but he readily interacts. He is not in any apparent distress but appears uncomfortable. He is diaphoretic and pale. HEENT: Normocephalic, atraumatic. PERRLA 3 mm brisk, EOMI. MMM & pink, uvula midline, airway patent, tongue midline to protrusion. NECK: Midline cervical spine mildly TTP. Neck supple. No JVD. Trachea midline. MUSCULOSKELETAL: RAVI to varying degrees spontaneously & purposefully. Extremities are NTTP. No evident clubbing or deformity. The thoracolumbar spine is nontender to palpation. The lumbar surgical site dressing is intact but moist , the GUIDO drain is to bulb suction w/serosanguinous drainage, there is some sanguinous shadowing on the dressing to the GUIDO site. The GUIDO drain is removed w/ o difficulty by Nursing and the site is redressed. The surgical incision dressing is changed, it is well-approximated, the steri-strips are intact with dried blood to them. There is no active drainage, erythema or streaking noted to the incision or insertion site. NEUROLOGICAL: AAOx3. Speech clear & appropriate. Follows commands w/o difficulty. CN II through XII grossly intact. Sensation starts to decrease below the knees and is absent at the feet, at and above the knees and to the upper extremities sensation is intact to light touch. Motor strength: LUE: Deltoid 4+/5, biceps 3+ to 4/5, triceps 3+ to 4/5, wrist flexors & extensors 4+/5 and hand intrinsics & extrinsics 4 to 4+/5. RUE: Deltoid 3+/5, biceps 4+/5, triceps 4/5, wrist flexors & extensors 4+/5 and hand intrinsics & extrinsics 4 to 4+/5. LLE: Iliopsoas 1+/5, quadriceps 0/5, hamstring 1/5, tibialis anterior 0/5, gastrocnemius 0/5 & extensor hallucis longus 0/5. RLE: Iliopsoas 1+/5, quadriceps 0/5, hamstring 1/5, tibialis anterior 0/5, gastrocnemius 0/5 & extensor hallucis longus 0/5. Negative Luanne's bilaterally. Neutral Babinski bilaterally. (Tigre Estrada) Lab, Micro, Other Results Recent Impressions Thoracic Spine MRI 01/03/18 Signed Impressions: Service Date/Time: Wednesday, January 03, 2018 00:38 - CONCLUSION: Multilevel disc abnormalities. Severe canal stenosis at T2-3 and T5-6 with cord compression and mild signal changes in the cord at T2-3 and moderate signal changes within the cord at T5-6. Less severe changes at L2 additional levels as described. Harley Herrera MD Lumbar Spine MRI 01/03/18 Signed Impressions: Service Date/Time: Wednesday, January 03, 2018 00:38 - CONCLUSION: Complete or near complete canal obliteration at L2-3, L3-4 and L4-5 with less severe compromise at L1-2 and T12-L1. Harley Herrera MD Cervical Spine MRI 01/03/18 Signed Impressions: Service Date/Time: Wednesday, January 03, 2018 00:38 - CONCLUSION: Severe multilevel canal stenosis. Findings appear to be most critical at C4-5 and C5-6 where AP canal dimension is reduced to 4-5 mm, however also quite severe at C2-3 and C3-4. Harley Herrera MD Chest X-Ray 01/02/18 [id number] Signed Impressions: Service Date/Time: Tuesday, January 02, 2018 23:11 - CONCLUSION: Mild basilar atelectasis or scarring. Harley Herrera MD Laboratory Tests Test 01/02/18 23:20 01/02/18 23:35 01/03/18 01:40 01/03/18 01:42 White Blood Count 12.6 TH/MM3 Red Blood Count 4.89 MIL/MM3 Hemoglobin 15.8 GM/DL Hematocrit 44.6 % Mean Corpuscular Volume 91.3 FL Mean Corpuscular Hemoglobin 32.2 PG Mean Corpuscular Hemoglobin Concent 35.3 % Red Cell Distribution Width 13.5 % Platelet Count 18 TH/MM3 Mean Platelet Volume 8.9 FL CBC Comment AUTO DIFF Differential Total Cells Counted 100 Neutrophils % (Manual) 71 % Band Neutrophils % 19 % Lymphocytes % 4 % Monocytes % 4 % Neutrophils # (Manual) 11.6 TH/MM3 Metamyelocytes 2 % Differential Comment FINAL DIFF MANUAL Toxic Vacuolation PRESENT Platelet Estimate LOW Platelet Morphology Comment NORMAL Erythrocyte Sedimentation Rate 40 mm/hr Prothrombin Time 10.7 SEC Prothromb Time International Ratio 1.1 RATIO Activated Partial Thromboplast Time 24.5 SEC Blood Urea Nitrogen 69 MG/DL Creatinine 2.23 MG/DL Random Glucose 141 MG/DL Total Protein 9.3 GM/DL Albumin 2.7 GM/DL Calcium Level 9.3 MG/DL Magnesium Level 2.6 MG/DL Alkaline Phosphatase 321 U/L Aspartate Amino Transf (AST/SGOT) 61 U/L Alanine Aminotransferase (ALT/SGPT) 43 U/L Total Bilirubin 1.0 MG/DL Sodium Level 129 MEQ/L Potassium Level 3.7 MEQ/L Chloride Level 93 MEQ/L Carbon Dioxide Level 23.5 MEQ/L Anion Gap 13 MEQ/L Estimat Glomerular Filtration Rate 29 ML/MIN Lactic Acid Level 4.0 mmol/L 2.0 mmol/L Total Creatine Kinase 927 U/L Creatine Kinase MB 20.4 NG/ML Creatine Kinase MB % 2.2 % Troponin I LESS THAN 0.02 NG/ML C-Reactive Protein 33.30 MG/DL B-Type Natriuretic Peptide 44 PG/ML Lipase 112 U/L Urine Color YELLOW Urine Turbidity HAZY Urine pH 5.0 Urine Specific Lutts 1.017 Urine Protein 30 mg/dL Urine Glucose (UA) NEG mg/dL Urine Ketones NEG mg/dL Urine Occult Blood MOD Urine Nitrite NEG Urine Bilirubin NEG Urine Urobilinogen LESS THAN 2.0 MG/DL Urine Leukocyte Esterase MOD Urine RBC 2 /hpf Urine WBC 10 /hpf Urine Squamous Epithelial Cells <1 /hpf Urine Bacteria MOD /hpf Urine Hyaline Casts 30 /lpf Urine Granular Casts 26 /lpf Urine Mucus FEW /lpf Microscopic Urinalysis Comment CULTURE INDICATED Fibrinogen 750 mg/dL Test 01/03/18 02:25 01/03/18 05:45 01/03/18 07:20 01/03/18 10:48 Platelet Count 28 TH/MM3 67 TH/MM3 Blood Gas Puncture Site DRAWN IN OR ART LINE Blood Gas Patient Temperature 98.6 98.6 Blood Gas HCO3 21 mmol/L 22 mmol/L Blood Gas Base Excess -3.8 mmol/L -2.6 mmol/L Blood Gas Oxygen Saturation 97 % 96 % Arterial Blood pH 7.36 7.34 Arterial Blood Partial Pressure CO2 38 mmHg 43 mmHg Arterial Blood Partial Pressure O2 257 mmHg 132 mmHg Arterial Blood Oxygen Content 26.1 Vol % 14.6 Vol % Arterial Blood Carboxyhemoglobin 0.9 % 1.4 % Arterial Blood Methemoglobin 1.3 % 1.1 % Blood Gas Hemoglobin 18.8 G/DL 10.6 G/DL Oxygen Delivery Device OR VENTILATOR Blood Gas Inspired Oxygen 55 % 35 % White Blood Count 17.2 TH/MM3 Red Blood Count 3.22 MIL/MM3 Hemoglobin 10.1 GM/DL Hematocrit 29.3 % Mean Corpuscular Volume 90.9 FL Mean Corpuscular Hemoglobin 31.4 PG Mean Corpuscular Hemoglobin Concent 34.5 % Red Cell Distribution Width 13.4 % Mean Platelet Volume 8.1 FL CBC Comment AUTO DIFF Differential Total Cells Counted 100 Neutrophils % (Manual) 82 % Band Neutrophils % 13 % Lymphocytes % 2 % Monocytes % 3 % Neutrophils # (Manual) 16.3 TH/MM3 Differential Comment FINAL DIFF MANUAL Platelet Estimate LOW Platelet Morphology Comment NORMAL Acanthocytes 1+ Prothrombin Time 11.3 SEC Prothromb Time International Ratio 1.1 RATIO Activated Partial Thromboplast Time 24.3 SEC Fibrinogen 623 mg/dL Blood Gas Ventilator Setting Test 01/03/18 10:49 01/03/18 13:02 01/03/18 13:09 01/04/18 03:40 Blood Smear Pathologist Review Nasal Screen MRSA (PCR) MRSA NOT DETECTED Haptoglobin 234 MG/DL Lactate Dehydrogenase 204 U/L White Blood Count 15.6 TH/MM3 Red Blood Count 2.78 MIL/MM3 Hemoglobin 8.8 GM/DL Hematocrit 25.1 % Mean Corpuscular Volume 90.2 FL Mean Corpuscular Hemoglobin 31.6 PG Mean Corpuscular Hemoglobin Concent 35.0 % Red Cell Distribution Width 13.7 % Platelet Count 23 TH/MM3 Mean Platelet Volume 9.0 FL CBC Comment AUTO DIFF Differential Total Cells Counted 100 Neutrophils % (Manual) 83 % Band Neutrophils % 10 % Lymphocytes % 5 % Monocytes % 2 % Neutrophils # (Manual) 14.5 TH/MM3 Differential Comment FINAL DIFF MANUAL Toxic Vacuolation PRESENT Platelet Estimate LOW Platelet Morphology Comment NORMAL Blood Urea Nitrogen 43 MG/DL Creatinine 1.26 MG/DL Random Glucose 120 MG/DL Total Protein 6.2 GM/DL Albumin 1.8 GM/DL Calcium Level 7.1 MG/DL Phosphorus Level 2.1 MG/DL Magnesium Level 2.2 MG/DL Alkaline Phosphatase 170 U/L Aspartate Amino Transf (AST/SGOT) 42 U/L Alanine Aminotransferase (ALT/SGPT) 27 U/L Total Bilirubin 1.4 MG/DL Sodium Level 134 MEQ/L Potassium Level 4.0 MEQ/L Chloride Level 103 MEQ/L Carbon Dioxide Level 22.7 MEQ/L Anion Gap 8 MEQ/L Estimat Glomerular Filtration Rate 57 ML/MIN Protein Corrected Calcium 7.6 MG/DL Random Vancomycin Level 8.0 COMMENT Hepatitis A IgM Antibody NONREACTIVE Hepatitis B Surface Antigen NONREACTIVE Hepatitis B Core IgM Antibody NONREACTIVE Hepatitis C IgG Antibody NONREACTIVE HIV (1&2) Ab and P24 Ag, 4th Gener NONREACTIVE Test 01/04/18 11:35 01/05/18 06:50 01/05/18 10:35 White Blood Count 16.8 TH/MM3 13.9 TH/MM3 Red Blood Count 2.67 MIL/MM3 2.98 MIL/MM3 Hemoglobin 8.4 GM/DL 9.4 GM/DL Hematocrit 24.2 % 27.4 % Mean Corpuscular Volume 90.6 FL 92.0 FL Mean Corpuscular Hemoglobin 31.5 PG 31.6 PG Mean Corpuscular Hemoglobin Concent 34.8 % 34.4 % Red Cell Distribution Width 13.5 % 13.5 % Platelet Count 63 TH/MM3 55 TH/MM3 Mean Platelet Volume 8.2 FL 9.2 FL CBC Comment AUTO DIFF Differential Total Cells Counted 100 Neutrophils % (Manual) 82 % Band Neutrophils % 9 % Lymphocytes % 5 % Monocytes % 4 % Neutrophils # (Manual) 12.6 TH/MM3 Differential Comment FINAL DIFF MANUAL Toxic Granulation 1+ Toxic Vacuolation PRESENT Platelet Estimate LOW Platelet Morphology Comment NORMAL Blood Urea Nitrogen 28 MG/DL Creatinine 1.07 MG/DL Random Glucose 92 MG/DL Total Protein 6.6 GM/DL Albumin 1.8 GM/DL Calcium Level 7.7 MG/DL Phosphorus Level 1.7 MG/DL Magnesium Level 1.7 MG/DL Alkaline Phosphatase 319 U/L Aspartate Amino Transf (AST/SGOT) 65 U/L Alanine Aminotransferase (ALT/SGPT) 48 U/L Total Bilirubin 2.3 MG/DL Sodium Level 131 MEQ/L Potassium Level 3.6 MEQ/L Chloride Level 99 MEQ/L Carbon Dioxide Level 23.3 MEQ/L Anion Gap 9 MEQ/L Estimat Glomerular Filtration Rate 69 ML/MIN Blood Gas Puncture Site LT RADIAL Blood Gas Patient Temperature 98.6 Blood Gas HCO3 22 mmol/L Blood Gas Base Excess -0.5 mmol/L Blood Gas Oxygen Saturation 95 % Arterial Blood pH 7.52 Arterial Blood Partial Pressure CO2 27 mmHg Arterial Blood Partial Pressure O2 86 mmHg Arterial Blood Oxygen Content 12.7 Vol % Arterial Blood Carboxyhemoglobin 1.8 % Arterial Blood Methemoglobin 0.7 % Blood Gas Hemoglobin 9.4 G/DL Oxygen Delivery Device NASAL CANNULA Blood Gas Liter Flow 4 L/M (Tigre Estrada) Medical Decision Making Impression and Plan Impression: 1. Severe progressive paraplegia. Although he has significant spinal stenosis in the cervical thoracic and lumbar region, his overall presentation and exam suggests that the lumbar stenosis is the immediate cause of his severe lower extremity deficit, positive cauda equina syndrome. 2. Possible sepsis 3. Acute kidney disease 4. 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 Severe lumbar canal stenosis 2. Cauda equina syndrome 3. Cervical degenerative disease with severe stenosis and myelopathy 4. Thoracic disc disease with severe canal stenosis and myelopathy 5. Sepsis 6. Thrombocytopenia 7. Acute kidney disease Respiratory insufficiency, CXR this morning w/LLL consolidation. Ileus suggested by abdominal x-ray this morning. Patient is doing worse today, his condition is fair. He has some mild neck pain but no back pain. His sensorimotor exam to the lower extremities is worse than yesterday. His muscle strength to the upper extremities has some improvement as well as some decline from yesterday. T max 102.7 yesterday evening. Intermittently tachycardiac. Reviewed labs for today. Interval improvement in leukocytosis & in haemoglobin level. Improvement of thrombocytopenia from early yesterday morning but drop from later in the morning. Sodium 131. Improvement in eGFR. Worsening in hypophosphatemia. Worsening transaminases & alk phos. Wound culture () positive for Escherichia coli. Blood cultures ( & ) positive for Escherichia coli. Urine culture () positive for Escherichia coli. GUIDO drain with 10 mL output for the past 24 hours as of shift change this morning. POD #2 () s/p: 1. Bilateral L1-2, L2-3, L3 4, L4 5 decompressive semi-laminectomy, medial facetectomy for spinal canal decompression. Plan: Primary & critical care management per [employer] Advisor. Neuro checks. Mobilise patient w/assistance. Turn patient q2h but keep the patient off of his back. HOB between 30 and 45 degrees. Physical & Occupational Therapy eval & tx. Hold pharmacologic DVT prophylaxis. Mechanical DVT prophylaxis. Will d/c GUIDO drain. MRI lumbar spine today. (iTgre Estrada) Attending Statement The exam, history, and the medical decision-making described in the above note were completed with the assistance of the mid-level provider. I reviewed and agree with the findings presented. I attest that I had a [id number] encounter with the patient on the same day, and personally performed and documented my assessment and findings in the medical record. On my examination today, the patient is mildly lethargic. Answers questions appropriately, follows simple commands well. Persistent mild proximal and moderate distal lower extremity sensory loss to light touch-not significantly changed compared to preoperative. Motor function mostly 1-to/5 proximal, absent distal or extremity major flexion- extension Kelvin. Mild drain output Dressing dry Transferred back to intensive care unit due to desaturation, respiratory difficulty. Positive left lower lobe consolidation All cultures including lumbar wound positive for Escherichia coli. 01/05/18 postoperative MRI reviewed. Somewhat difficult to accurately interpret due to significant artifact, however there appears to be moderate residual stenosis at the L4 5 level, possible disc herniation versus hematoma anterior to the thecal sac at L3 level, but all generally improved compared to preoperative. Continue close monitoring of neurologic function. Cervical and thoracic myelopathy may be contributing to his deficit, but remains a poor candidate for any further surgical intervention at this point. (Jerry Chakraborty MD) Tigre EstradaP Jan 05, 2018 12:17 Jerry Chakraborty MD Jan 05, 2018 21:58
[2018-01-05] MEDS: NS + KCL 20 MEQ INJ 1,000 ML IV SCH ×2 (12:42→20:13)
--- NOTE | 2018-01-05 12:57 | EKG ---
Date Performed: 01/05/2018 Time Performed: 10:54:47 PTAGE: 67 years EKG: SINUS TACHYCARDIA NONSPECIFIC ST & T-WAVE ABNORMALITY ABNORMAL RHYTHM ECG PREVIOUS TRACING : 01/02/2018 23.32 DOCTOR: Bharathi Bui Interpretating Date/Time 01/05/2018 12:56:40
[2018-01-05] MEDS ORDERED: metroNIDAZOLE 500 MG INJ 100 ML IV SCH (13:00)
[2018-01-05] MEDS ORDERED: GADODIAMIDE PF 287 MG/ML 20 ML VIAL (for RAD MRI) IVCONTRAST ONE (14:55)
--- NOTE | 2018-01-05 14:55 | HHI.IDPN ---
Subjective Subjective Remarks Mr. Reeves is a 67 y/o CM with history of BPH who underwent a prostate biopsy one week ago, on 12/27/17. On the evening of 12/29/17 he developed fever and chills, low back pain, and lower extremity numbness and paresthesias and muscle spasm. He was seen by his primary care physician and was given medication including muscle relaxant. The symptoms persisted and he returned to his primary care physician on 01/01/18 and was given additional medications including Cipro and medrol dose pack. On 01/02/2018 patient woke up with increased lower extremity weakness and numbness, and fell in the shower in the morning, after which he was unable to ambulate or lift his legs off the bed , and continued to experience pain in the lower back. He went to the emergency room at [facility], and was given additional medication injections. He could not lift his legs off the bed or ambulate in the emergency room, and was taken out to his car and lifted into the car and sent home again. He fell in the driveway again trying to get back into the house. He apparently did not urinate for the entire day. He has no complaint of pain which is numbness paresthesias in the upper extremities. Reportedly on admission there was no numbness or paresthesias over the chest or abdomen or pelvic region. The MRI of thoracic spine shows severe canal stenosis at T2-3 and T5-6 level with cord compressions, complete or near complete canal obliteration at L2-3 L3- 4 and severe multilevel canal stenosis of the C-spine. Entire spine including C spine shows areas of stenosis. Upon my discussion with patient had to be emergently taken to the OR for decompression. Intraop cultures were taken and no hardware placed at present time but it appears that patient will need more surgeries. The MRIs done were non contrast due to Acute renal failure on admission and cannot be repeated. Per my dw plan is to treat as epidural abscess stone since patient was treated for few days with antibiotics prior to arrival and also due to patient needing hardware placement which can be seeded. At the time of my evaluation patient is in ISC. Intubated, being weaned off sedation, UO is good peck in place. Not on any pressors. There is a plan to wean to extubate the patient per RN. ID consulted for evaluation and Mment of GN madonna bacteremia (E.coli CTX M negative) and possible epidural abscess. Overnight events reviewed. No fevers No rash No diarrhea Extubated. s/p 1 dose of Genta yday pending cultures. Flicker of movt noted at knee level. UE weakness noted also. Awake, oriented and answering questions appropriately. Antibiotics Cefepime IV Lines Line sites with no e.o infection Past Medical History reviewed Allergies: Coded Allergies: No Known Allergies (Unverified , 01/02/18) Objective . Vital Signs Date Time Temp Pulse Resp B/P (MAP) Pulse Ox O2 Delivery O2 Flow Rate FiO2 01/05/18 12:00 116 01/05/18 12:00 98.4 104 20 146/77 (100) 99 01/05/18 11:46 99 Nasal Cannula 4.00 01/05/18 11:46 98.4 117 20 141/79 (99) 99 01/05/18 11:45 117 01/05/18 11:04 97 4.00 01/05/18 10:45 102.5 140 22 136/73 (94) 96 01/05/18 10:38 102.5 130 22 168/77 (107) 97 01/05/18 10:30 102.5 133 22 174/82 (112) 86 01/05/18 09:19 93 01/05/18 09:03 18 01/05/18 08:00 97.9 97 16 157/74 (101) 94 01/05/18 04:45 98.5 101 20 158/83 (108) 98 01/05/18 04:19 98 21 01/04/18 22:43 98.4 84 18 135/71 (92) 99 01/04/18 20:00 122 01/04/18 20:00 102.7 122 27 133/67 (89) 97 01/04/18 19:00 94 Room Air 01/04/18 16:00 94 01/04/18 16:00 100.3 94 24 144/72 (96) 96 Arterial Line 01/05/18 01/05/18 01/06/18 15:00 23:00 07:00 Intake Total 1200 ml Output Total 2100 ml Balance -900 ml Intake Oral 1200 ml IV Total 0 ml Output Urine Total 2100 ml # Bowel Movements 0 . Laboratory Tests Test 01/04/18 03:40 01/04/18 11:35 01/05/18 06:50 White Blood Count 15.6 TH/MM3 16.8 TH/MM3 13.9 TH/MM3 Red Blood Count 2.78 MIL/MM3 2.67 MIL/MM3 2.98 MIL/MM3 Hemoglobin 8.8 GM/DL 8.4 GM/DL 9.4 GM/DL Hematocrit 25.1 % 24.2 % 27.4 % Mean Corpuscular Volume 90.2 FL 90.6 FL 92.0 FL Mean Corpuscular Hemoglobin 31.6 PG 31.5 PG 31.6 PG Mean Corpuscular Hemoglobin Concent 35.0 % 34.8 % 34.4 % Red Cell Distribution Width 13.7 % 13.5 % 13.5 % Platelet Count 23 TH/MM3 63 TH/MM3 55 TH/MM3 Mean Platelet Volume 9.0 FL 8.2 FL 9.2 FL CBC Comment AUTO DIFF AUTO DIFF Differential Total Cells Counted 100 100 Neutrophils % (Manual) 83 % 82 % Band Neutrophils % 10 % 9 % Lymphocytes % 5 % 5 % Monocytes % 2 % 4 % Neutrophils # (Manual) 14.5 TH/MM3 12.6 TH/MM3 Differential Comment FINAL DIFF MANUAL FINAL DIFF MANUAL Toxic Vacuolation PRESENT PRESENT Platelet Estimate LOW LOW Platelet Morphology Comment NORMAL NORMAL Toxic Granulation 1+ Laboratory Tests Test 01/04/18 03:40 01/05/18 06:50 Blood Urea Nitrogen 43 MG/DL 28 MG/DL Creatinine 1.26 MG/DL 1.07 MG/DL Random Glucose 120 MG/DL 92 MG/DL Total Protein 6.2 GM/DL 6.6 GM/DL Albumin 1.8 GM/DL 1.8 GM/DL Calcium Level 7.1 MG/DL 7.7 MG/DL Phosphorus Level 2.1 MG/DL 1.7 MG/DL Magnesium Level 2.2 MG/DL 1.7 MG/DL Alkaline Phosphatase 170 U/L 319 U/L Aspartate Amino Transf (AST/SGOT) 42 U/L 65 U/L Alanine Aminotransferase (ALT/SGPT) 27 U/L 48 U/L Total Bilirubin 1.4 MG/DL 2.3 MG/DL Sodium Level 134 MEQ/L 131 MEQ/L Potassium Level 4.0 MEQ/L 3.6 MEQ/L Chloride Level 103 MEQ/L 99 MEQ/L Carbon Dioxide Level 22.7 MEQ/L 23.3 MEQ/L Anion Gap 8 MEQ/L 9 MEQ/L Estimat Glomerular Filtration Rate 57 ML/MIN 69 ML/MIN Protein Corrected Calcium 7.6 MG/DL Microbiology Date/Time Source Procedure Growth Status 01/05/18 04:00 Blood Peripheral Aerobic Blood Culture Pending Received 01/05/18 04:00 Blood Peripheral Anaerobic Blood Culture Pending Received 01/05/18 03:50 Blood Peripheral Aerobic Blood Culture Pending Received 01/05/18 03:50 Blood Peripheral Anaerobic Blood Culture Pending Received 01/03/18 13:25 Blood Peripheral Aerobic Blood Culture - Final Escherichia Coli Resulted 01/03/18 13:25 Blood Peripheral Anaerobic Blood Culture - Preliminary NO GROWTH IN 2 DAYS Resulted 01/03/18 13:09 Blood Peripheral Aerobic Blood Culture - Final Escherichia Coli Resulted 01/03/18 13:09 Blood Peripheral Anaerobic Blood Culture - Preliminary NO GROWTH IN 2 DAYS Resulted 01/02/18 23:20 Blood Peripheral Aerobic Blood Culture - Final Escherichia Coli Complete 01/02/18 23:20 Anaerobic Blood Culture - Final Escherichia Coli Complete 01/02/18 23:15 Blood Peripheral Aerobic Blood Culture - Final Escherichia Coli Complete 01/02/18 23:15 Anaerobic Blood Culture - Final Escherichia Coli Complete 01/02/18 23:35 Urine Clean Catch Urine Culture - Final Escherichia Coli Complete 01/03/18 07:20 Wound Back Fungal Smear - Final NO FUNGAL ELEMENTS SEEN. Resulted 01/03/18 07:20 Wound Back Fungal Culture Pending Resulted 01/03/18 07:20 Wound Back Acid Fast Stain - Final NO ACID FAST BACILLI SEEN Resulted 01/03/18 07:20 Wound Back Mycobacterial Culture Pending Resulted 01/03/18 07:20 Wound Back Gram Stain - Final Complete 01/03/18 07:20 Wound Culture - Final Escherichia Coli Complete Imaging Last Impressions Thoracic Spine MRI 01/03/18 0000 Signed Impressions: Service Date/Time: Wednesday, January 03, 2018 00:38 - CONCLUSION: Multilevel disc abnormalities. Severe canal stenosis at T2-3 and T5-6 with cord compression and mild signal changes in the cord at T2-3 and moderate signal changes within the cord at T5-6. Less severe changes at L2 additional levels as described. Harley Herrera MD Lumbar Spine MRI 01/03/18 0000 Signed Impressions: Service Date/Time: Wednesday, January 03, 2018 00:38 - CONCLUSION: Complete or near complete canal obliteration at L2-3, L3-4 and L4-5 with less severe compromise at L1-2 and T12-L1. Harley Herrera MD Cervical Spine MRI 01/03/18 0000 Signed Impressions: Service Date/Time: Wednesday, January 03, 2018 00:38 - CONCLUSION: Severe multilevel canal stenosis. Findings appear to be most critical at C4-5 and C5-6 where AP canal dimension is reduced to 4-5 mm, however also quite severe at C2-3 and C3-4. Harley Herrera MD Chest X-Ray 01/02/18 2302 Signed Impressions: Service Date/Time: Tuesday, January 02, 2018 23:11 - CONCLUSION: Mild basilar atelectasis or scarring. Harley Herrera MD Physical Exam GENERAL: This is a well-nourished, well-developed patient, in no apparent distress. SKIN: No rashes, ecchymoses or lesions. Cool and dry. HEAD: Atraumatic. Normocephalic. No temporal or scalp tenderness. EYES: Pupils equal round and reactive. No scleral icterus. No injection or drainage. ENT: Intubated. NECK: Trachea midline. Supple, nontender, no meningeal signs. CARDIOVASCULAR: HS audible. RESPIRATORY: Clear to auscultation. Breath sounds equal bilaterally. No wheezes , rales, or rhonchi. GASTROINTESTINAL: Abdomen soft, non-tender, nondistended. MUSCULOSKELETAL: Extremities without clubbing, cyanosis, or edema. NEUROLOGICAL: Opened eyes spontaneously. Flicker noted at knee level. Psych could not be assessed. IV line sites with no e.o infection. Assessment & Plan Remarks Severe Sepsis present on admission (leucocytosis, Tachycardia, source: bacteremia and epidural abscess. E.coli bacteremia (CTX M negative) E.Coli UTI recent prostate biopsy. 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 Recent history of prostate biopsy as risk factor for E.coli bacteremia. Paraparesis present on admission. Recs: Continue Cefepime IV Wound cx, urine CX and Blood cx positive for E.coli. 2D ECHO no obvious vegetation. If bacteremia persistent will consider APRYL if Neurosurgery clears him for APRYL. Needs CT Chest/abd pelvis in future to look for prostate abscess etc as source of infection or evidence of distant dissemination to Spleen,Liver etc. Urology consult appreciated. Follow cultures Follow clinically. Shanda Charles MD Jan 05, 2018 14:55
[2018-01-05] MEDS: MORPHINE SULFATE 2 MG/ML SYRINGE IV PUSH PRN (16:00)
--- NOTE | 2018-01-05 16:14 | HHI.PR ---
Subjective Patient symptoms today 67y.o m with Urosepsis post Prostate biopsy and spinal stenosis most likely exacerbation not related he is s/p bilateral L1-2, L2-3, L3 4, L4 5 decompressive semi-laminectomy, medial facetectomy for spinal canal decompression on 01/03/18. He was seen this afternoon at bedside. He had fever 102 and was tachy overnight, also desaturated this AM ( sat was 80). Also his neuro condition is slightly worse today VS now are normal, Leukocytosis is improving. His Cultures were positive for E coli and he is on correct IV antbx. His Chest xray is c/w left lower lobe consolidation. Also his abdominal x ray suggests ileus Peck is in place, no hematuria. Pt's prostate biopsy results are benign Objective Vital Signs Vital Signs Date Time Temp Pulse Resp B/P (MAP) Pulse Ox O2 Delivery O2 Flow Rate FiO2 01/05/18 12:00 116 01/05/18 12:00 98.4 104 20 146/77 (100) 99 01/05/18 11:46 99 Nasal Cannula 4.00 01/05/18 11:46 98.4 117 20 141/79 (99) 99 01/05/18 11:45 117 01/05/18 11:04 97 4.00 01/05/18 10:45 102.5 140 22 136/73 (94) 96 01/05/18 10:38 102.5 130 22 168/77 (107) 97 01/05/18 10:30 102.5 133 22 174/82 (112) 86 01/05/18 09:19 93 01/05/18 09:03 18 01/05/18 08:00 97.9 97 16 157/74 (101) 94 01/05/18 04:45 98.5 101 20 158/83 (108) 98 01/05/18 04:19 98 21 01/04/18 22:43 98.4 84 18 135/71 (92) 99 01/04/18 20:00 122 01/04/18 20:00 102.7 122 27 133/67 (89) 97 01/04/18 19:00 94 Room Air 01/04/18 16:00 94 01/04/18 16:00 100.3 94 24 144/72 (96) 96 Arterial Line Intake & Output 01/05/18 01/05/18 06:59 18:59 Intake Total 1200 ml Output Total 2100 ml Balance -900 ml Intake Oral 1200 ml IV Total 0 ml Output Urine Total 2100 ml # Bowel Movements 0 Result Diagram: 01/05/18 0650 01/05/18 0650 Other Results Awake and Alert NAD Clear breath sounds Slightly tachycardic, no murmurs Bladder is decompressed by peck catheter Imaging Last 24 hours Impressions Chest X-Ray 01/05/18 0000 Signed Impressions: Service Date/Time: Friday, January 05, 2018 11:07 - CONCLUSION: Findings suggesting new subsegmental area of consolidation in the medial left lower lobe. Jagjit Wilkinson MD Abdomen X-Ray 01/05/18 0000 Signed Impressions: Service Date/Time: Friday, January 05, 2018 11:16 - CONCLUSION: Mildly prominent gas filled loops of small and large bowel without disproportionately dilated loops. The appearance suggests ileus. Jagjit Wilkinson MD Medications and IVs Current Medications Medications (Trade) Dose Ordered Sig/Kaveh Route Start Time Stop Time Status Last Admin (Robaxin) 500 mg QID PO 01/03/18 09:00 01/05/18 12:42 (Flomax) 0.4 mg HS PO 01/03/18 21:00 01/04/18 20:20 (Lipitor) 40 mg DAILY PO 01/03/18 09:00 01/05/18 08:03 (NS Flush) 2 ml UNSCH PRN IV FLUSH 01/03/18 05:00 (NS Flush) 2 ml BID IV FLUSH 01/03/18 09:00 01/04/18 20:19 (Tylenol) 650 mg Q6H PRN PO 01/03/18 05:00 01/05/18 10:28 (Zofran Inj) 4 mg Q6H PRN IV PUSH 01/03/18 05:00 01/05/18 15:50 (Restoril) 15 mg HS PRN PO 01/03/18 05:00 (Roxana-Colace) 1 tab BID PO 01/03/18 09:00 01/05/18 08:03 (Milk Of Magnesia Liq) 30 ml Q12H PRN PO 01/03/18 05:00 (Senokot) 17.2 mg Q12H PRN PO 01/03/18 05:00 (Dulcolax Supp) 10 mg DAILY PRN RECTAL 01/03/18 05:00 (Lactulose Liq) 30 ml DAILY PRN PO 01/03/18 05:00 (Tears Naturale Opth Soln) 1 drop Q8HR EACH EYE 01/03/18 14:00 01/05/18 12:42 (Duoneb Neb) 1 ampule Q6HR NEB NEB 01/03/18 10:00 01/05/18 09:19 (Albuterol Neb) 2.5 mg Q2HR NEB PRN NEB 01/03/18 10:00 (Pepcid) 20 mg BID PO 01/04/18 21:00 01/05/18 08:03 Cefepime HCl 2000 mg/Sodium Chloride 100 ml @ 200 mls/hr Q8H IV 01/04/18 16:00 01/05/18 15:50 Potassium Chloride/Sodium Chloride 1,000 ml @ 125 mls/hr Q8H IV 01/05/18 12:30 01/05/18 12:42 (K-Phos Neutral) 250 mg Q6HR PO 01/05/18 18:00 (Roxicodone) 5 mg Q4H PRN PO 01/05/18 15:45 (Roxicodone) 10 mg Q6H PRN PO 01/05/18 15:45 (Morphine Inj) 2 mg Q4H PRN IV PUSH 01/05/18 15:45 Assessment and Plan Assessment and Plan 67 y.o male s/p prostate biopsy last week, results of biopsy are benign, no cancer found Admitted for urosepsis and several areas of spinal stenosis, managed surgically No acute intervention needed Continue care as per primary team and Neurosurgical and ID teams. Continue IV antbx Keep peck catheter as needed to monitor I&O and until pt is strong enough to use restroom Flomax 0.4mg daily No additional intervention at this point, pt to follow up as outpt Urology remains available as needed Marcin Kidd Jan 05, 2018 16:14
[2018-01-05] MEDS ORDERED: DIAZEPAM 5 MG TAB PO ONE (16:45)
--- NOTE | 2018-01-05 17:17 | RADRPT ---
EXAM DATE/TIME: 01/05/2018 14:27 [facility] COMPARISON: MRI LUMBAR SPINE W/O CONTRAST, January 03, 2018, 0:38. INDICATIONS : Back pain post lumbar surgery. CONTRAST: 19 cc Omniscan (gadodiamide) IV MEDICAL HISTORY : kidney stones SURGICAL HISTORY : Tonsillectomy. kidney surgery, lumbar surgery 01/03/18 ENCOUNTER: Subsequent ACUITY: 4-6 days PAIN SCORE: 6/10 LOCATION: lower back TECHNIQUE: Multiplanar multisequence MRI of the lumbar spine was performed with and without contrast. FINDINGS: The most caudal appearing lumbar vertebra is numbered as L5. There appear to be extensive, multilevel decompressive laminectomies present on the left. As seen pre viously, severe multilevel degenerative disc disease with loss of disc height is about every lumbar l evel with relative sparing of the lumbosacral junction. Prominent posterior spurs encroach on the spi nal canal most prominent at L3-4 and L4-5. Heterogeneity of the marrow signal diffusely throughout th e lumbar spine may represent red marrow replacement in combination with multilevel Modic endplate arlene nges. Right renal cortical cyst. T12-L1: Probable hemangioma in the L1 vertebral body. The thecal sac has a normal diameter. No evidence of d isc bulge or protrusion. The neural foramina are patent bilaterally. L1-L2: 6 mm right paracentral disc protrusion with vacuum disc phenomenon encroaches on the spinal canal and deforms the right side of the thecal sac. I believe the spinal canal and neural foramina remain adeq uate, however L2-L3: Left-sided decompressive laminectomy. Spinal canal and neural foramina appear to be adequate L3-L4: Despite the prominent posterior elements, there is a left-sided decompressive laminectomy. Spinal can al and neural foramina appear to be adequate L4-L5: Most severely affected level. There is a left-sided laminectomy. There is obscuration of the epidural fat at this level predominantly due to the regional facet hypertrophy. Encroachment on both neural f oramina, right much worse and left almost certain compromise of the right L4 nerve root. A well-circu mscribed, 1.4 cm cystic structure is identified just posterior to the spinal canal and just anterior to the spinous process. This may represent a small seroma which may cause some narrowing of the spina l canal at this level L5-S1: The thecal sac has a normal diameter. No evidence of disc bulge or protrusion. The neural foramina are patent bilaterally. CONCLUSION: 1. Extensive postsurgical changes with apparent left decompressive laminectomy leftward from L1 to th rough L4-5. 2. There is a well-circumscribed 1.4 cm cystic structure midline just posterior to the thecal sac at L4-5 which was not clearly present previously. May represent a small seroma which could result in wilner e degree of central spinal stenosis despite the left laminectomy. 3. In addition, severe narrowing of the right L4-5 neural foramen with almost certain compromise of t he right L4 nerve root. Emir Bowles MD on January 05, 2018 at 16:49 Board Certified Radiologist. This report was verified electronically.
[2018-01-05] MEDS: POTASSIUM PHOSPHATE/SODIUM PHOSPHATE 250 MG TAB PO SCH ×2 (17:40→23:37)
[2018-01-05] MEDS: TAMSULOSIN HCL 0.4 MG CAP PO SCH (20:12)
[2018-01-06] VITALS (14 sets, daily range): BP systolic 148–183; BP diastolic 74–93; PULSE 108–128; RESP 18–30; TEMP 98.5–102.4; O2SAT 95–100
[2018-01-06] MEDS ORDERED: PHARMACY ORDERED LAB ONE (00:45)
[2018-01-06] MEDS: NS + KCL 20 MEQ INJ 1,000 ML IV SCH ×3 (03:22→20:46)
[2018-01-06] MEDS: RESP: ALBUTEROL 2.5 MG/IPRATROPIUM 0.5 MG NEB (SCH) NEB ×4 (04:16→22:00)
[2018-01-06] MEDS: ARTIFICIAL TEARS OPTH SOLN 15 ML BTL EACH EYE SCH ×3 (05:57→20:47)
[2018-01-06] MEDS: POTASSIUM PHOSPHATE/SODIUM PHOSPHATE 250 MG TAB PO SCH ×4 (05:57→17:41)
[2018-01-06 06:30] LABS: HEMATOCRIT 24.5 % (39.0-51.0); HEMOGLOBIN 8.5 GM/DL (13.0-17.0); MEAN CELL VOLUME 89.7 FL (80.0-100.0); MEAN CORPUSCULAR HEMOGLOBIN 31.1 PG (27.0-34.0); MEAN CORPUSCULAR HGB CONC 34.7 % (32.0-36.0); MEAN PLATELET VOLUME 10.1 FL (7.0-11.0); PLATELET COUNT 81 TH/MM3 (150-450); RED BLOOD COUNT 2.74 MIL/MM3 (4.50-5.90); RED CELL DISTRIBUTION WIDTH 13.6 % (11.6-17.2); WHITE BLOOD COUNT 20.2 TH/MM3 (4.0-11.0)
[2018-01-06 07:05] LABS: ALBUMIN 1.7 GM/DL (3.4-5.0); AST (GOT) 52 U/L (15-37); BICARBONATE 22.5 MEQ/L (21.0-32.0); BLOOD UREA NITROGEN 24 MG/DL (7-18); CALCIUM 7.6 MG/DL (8.5-10.1); CHLORIDE 97 MEQ/L (98-107); CREATININE 0.95 MG/DL (0.60-1.30); GLOMERULAR FILTRATION RATE 79 ML/MIN (>89); GLUCOSE,RANDOM 101 MG/DL (74-106); MAGNESIUM 1.8 MG/DL (1.5-2.5); SODIUM (NA) 130 MEQ/L (136-145)
[2018-01-06 07:06] LABS: PHOSPHORUS 2.7 MG/DL (2.5-4.9)
[2018-01-06 07:07] LABS: ALT (GPT) 41 U/L (12-78)
[2018-01-06 07:09] LABS: ALKALINE PHOSPHATASE 292 U/L (45-117); TOTAL BILIRUBIN ADULT 2.2 MG/DL (0.2-1.0); TOTAL PROTEIN 6.9 GM/DL (6.4-8.2)
[2018-01-06 08:31] LABS: BANDS 2 % (0-6); LYMPHOCYTES 1 % (9-44); MONOCYTES 1 % (0-8); NEUTROPHIL # MANUAL DIFF 19.4 TH/MM3 (1.8-7.7); PLASMA CELLS 2 % (0-0); POLYS (SEG NEUTROPHILS) 94 % (16-70)
[2018-01-06 08:32] LABS: TOXIC VACUOLATION PRESENT (NONE SEEN)
[2018-01-06] MEDS: SODIUM CHLORIDE 0.9% FLUSH 10 ML FLUSH IV FLUSH SCH ×2 (09:00→20:46)
[2018-01-06] MEDS: ATORVASTATIN 40 MG TAB PO SCH (09:30)
[2018-01-06] MEDS: CEFEPIME INJ 2,000 MG in SODIUM CHLORIDE 0.9% INJ 100 ML IV SCH (09:30)
[2018-01-06] MEDS: METHOCARBAMOL 500 MG TAB PO SCH ×4 (09:30→20:47)
[2018-01-06] MEDS: FAMOTIDINE 20 MG TAB PO SCH ×2 (09:30→20:47)
[2018-01-06] MEDS: DOCUSATE SODIUM 50 MG/SENNA 8.6 MG TAB PO SCH ×2 (09:30→20:47)
[2018-01-06] MEDS: MAGNESIUM HYDROXIDE SUSP 30 ML CUP PO PRN (11:39)
--- NOTE | 2018-01-06 11:48 | PD.ONC.PN ---
Subjective Subjective Remarks Afebrile overnight. patient is lucid today, but per nurse, still has periods of lethargy. he is still unable to move legs, and reports difficulty with motor control in the upper extremities, especially on the left. Objective Data Date Time Temp Pulse Resp B/P (MAP) Pulse Ox O2 Delivery O2 Flow Rate FiO2 01/06/18 10:00 117 01/06/18 08:00 98.8 112 29 168/93 (118) 97 01/06/18 08:00 108 01/06/18 07:00 99 Nasal Cannula 4.00 01/06/18 06:00 121 01/06/18 04:00 121 01/06/18 04:00 99.1 108 22 155/81 (105) 97 01/06/18 02:00 111 01/06/18 00:00 99.1 112 18 148/74 (98) 96 01/06/18 00:00 121 01/05/18 22:00 121 01/05/18 20:36 99 Nasal Cannula 4.00 01/05/18 20:00 98.8 112 16 131/74 (93) 96 01/05/18 20:00 112 01/05/18 19:00 99 Nasal Cannula 4.00 01/05/18 18:00 121 01/05/18 16:00 100.0 140 20 169/111 (130) 99 01/05/18 16:00 140 01/05/18 14:00 100 01/05/18 12:00 116 01/05/18 12:00 98.4 104 20 146/77 (100) 99 01/06/18 01/06/18 01/06/18 07:00 15:00 23:00 Output Total 1500 ml Balance -1500 ml Result Diagram: 01/06/18 0554 01/06/18 0554 Laboratory Results Laboratory Tests Test 01/05/18 15:16 01/06/18 05:54 Lactic Acid Level 1.6 mmol/L White Blood Count 20.2 TH/MM3 Red Blood Count 2.74 MIL/MM3 Hemoglobin 8.5 GM/DL Hematocrit 24.5 % Mean Corpuscular Volume 89.7 FL Mean Corpuscular Hemoglobin 31.1 PG Mean Corpuscular Hemoglobin Concent 34.7 % Red Cell Distribution Width 13.6 % Platelet Count 81 TH/MM3 Mean Platelet Volume 10.1 FL CBC Comment AUTO DIFF Differential Total Cells Counted 100 Neutrophils % (Manual) 94 % Band Neutrophils % 2 % Lymphocytes % 1 % Monocytes % 1 % Neutrophils # (Manual) 19.4 TH/MM3 Differential Comment FINAL DIFF MANUAL Plasma Cells 2 % Toxic Vacuolation PRESENT Platelet Estimate LOW Platelet Morphology Comment NORMAL Blood Urea Nitrogen 24 MG/DL Creatinine 0.95 MG/DL Random Glucose 101 MG/DL Total Protein 6.9 GM/DL Albumin 1.7 GM/DL Calcium Level 7.6 MG/DL Phosphorus Level 2.7 MG/DL Magnesium Level 1.8 MG/DL Alkaline Phosphatase 292 U/L Aspartate Amino Transf (AST/SGOT) 52 U/L Alanine Aminotransferase (ALT/SGPT) 41 U/L Total Bilirubin 2.2 MG/DL Sodium Level 130 MEQ/L Potassium Level 4.0 MEQ/L Chloride Level 97 MEQ/L Carbon Dioxide Level 22.5 MEQ/L Anion Gap 11 MEQ/L Estimat Glomerular Filtration Rate 79 ML/MIN Culture Results Microbiology Date/Time Source Procedure Growth Status 01/05/18 04:00 Blood Peripheral Aerobic Blood Culture - Preliminary NO GROWTH IN 1 DAY Resulted 01/05/18 04:00 Blood Peripheral Anaerobic Blood Culture - Preliminary NO GROWTH IN 1 DAY Resulted 01/05/18 03:50 Blood Peripheral Aerobic Blood Culture - Preliminary NO GROWTH IN 1 DAY Resulted 01/05/18 03:50 Blood Peripheral Anaerobic Blood Culture - Preliminary NO GROWTH IN 1 DAY Resulted 01/03/18 13:25 Blood Peripheral Aerobic Blood Culture - Final Escherichia Coli Resulted 01/03/18 13:25 Blood Peripheral Anaerobic Blood Culture - Preliminary NO GROWTH IN 3 DAYS Resulted 01/03/18 13:09 Blood Peripheral Aerobic Blood Culture - Final Escherichia Coli Resulted 01/03/18 13:09 Blood Peripheral Anaerobic Blood Culture - Preliminary NO GROWTH IN 3 DAYS Resulted Administered Medications Medications (Trade) Dose Ordered Sig/Kaveh Route PRN Reason Start Time Stop Time Status Last Admin Dose Admin Methocarbamol (Robaxin) 500 mg QID PO 01/03/18 09:00 01/06/18 09:30 Tamsulosin HCl (Flomax) 0.4 mg HS PO 01/03/18 21:00 01/05/18 20:12 Atorvastatin Calcium (Lipitor) 40 mg DAILY PO 01/03/18 09:00 01/06/18 09:30 Sodium Chloride (NS Flush) 2 ml BID IV FLUSH 01/03/18 09:00 01/05/18 20:12 Acetaminophen (Tylenol) 650 mg Q6H PRN PO PAIN 1-5 AND/OR FEVER >101F 01/03/18 05:00 01/05/18 10:28 Ondansetron HCl (Zofran Inj) 4 mg Q6H PRN IV PUSH NAUSEA OR VOMITING 01/03/18 05:00 01/05/18 15:50 Temazepam (Restoril) 15 mg HS PRN PO INSOMNIA 01/03/18 05:00 01/05/18 21:08 Senna/Docusate Sodium (Roxana-Colace) 1 tab BID PO 01/03/18 09:00 01/06/18 09:30 Magnesium Hydroxide (Milk Of Magnesia Liq) 30 ml Q12H PRN PO Mild constipation 01/03/18 05:00 01/06/18 11:39 Lactulose (Lactulose Liq) 30 ml DAILY PRN PO SEVERE CONSITIPATION 01/03/18 05:00 01/06/18 11:39 Artificial Tears (Tears Naturale Opth Soln) 1 drop Q8HR EACH EYE 01/03/18 14:00 01/06/18 05:57 Albuterol/ Ipratropium (Duoneb Neb) 1 ampule Q6HR NEB NEB 01/03/18 10:00 01/06/18 09:20 Famotidine (Pepcid) 20 mg BID PO 01/04/18 21:00 01/06/18 09:30 Cefepime HCl 2000 mg/Sodium Chloride 100 ml @ 200 mls/hr Q8H IV 01/04/18 16:00 01/06/18 09:30 Potassium Chloride/Sodium Chloride 1,000 ml @ 125 mls/hr Q8H IV 01/05/18 12:30 01/06/18 09:31 Potassium Phos/ Sodium Phos (K-Phos Neutral) 250 mg Q6HR PO 01/05/18 18:00 01/06/18 11:39 Oxycodone HCl (Roxicodone) 10 mg Q6H PRN PO PAIN SCALE 5 TO 10 01/05/18 15:45 01/06/18 05:55 Morphine Sulfate (Morphine Inj) 2 mg Q4H PRN IV PUSH BREAKTHROUGH PAIN 01/05/18 15:45 01/05/18 16:00 Objective Remarks GENERAL: Middle aged male, lying in bed upright. On 4L o2 via NC SKIN: Warm and dry. HEAD: Normocephalic. EYES: No injection or drainage. NECK: Supple, trachea midline. CARDIOVASCULAR: Regular rate and rhythm RESPIRATORY: Breath sounds equal bilaterally. No accessory muscle use. GASTROINTESTINAL: Abdomen soft, non-tender, nondistended. EXTREMITIES: No cyanosis, NEUROLOGICAL: awake and alert. oriented to time place and self. able to move his arms, R>L, unable to move legs Assessment/Plan Problem List: (1) Thrombocytopenia ICD Codes: D69.6 - Thrombocytopenia, unspecified Plan: 01/06: platelets are 81K today. monitor CBC --keep platelets greater than 50K post-surgery. no transfusion needed today. --likely d/t sepsis (2) Sepsis ICD Codes: A41.9 - Sepsis, unspecified organism Plan: --on antibiotics --ID following. (3) Lumbar canal stenosis ICD Codes: M48.061 - Spinal stenosis, lumbar region without neurogenic claudication Plan: --neurosurgery, Dr. Chakraborty following. --s/p laminectomy Assessment 67y/o male with thrombocytopenia admitted with sepsis, spinal stenosis, leg weakness. Now s/p emergent lumbar laminectomy history of BPH, hypothyroidism, depression, kidney stones, hypercholesterolemia. Attending Statement The exam, history, and the medical decision-making described in the above note were completed with the assistance of the mid-level provider. I reviewed and agree with the findings presented. I attest that I had a [id number] encounter with the patient on the same day, and personally performed and documented my assessment and findings in the medical record. Lethargic E.Coli sepsis Plat 81 k monitor cbc Problem Qualifiers (1) Lumbar canal stenosis: Qualified Codes: M48.061 - Spinal stenosis, lumbar region without neurogenic claudication Dulce Loredo Jan 06, 2018 11:48 Terri Doran MD Jan 07, 2018 13:28
[2018-01-06] MEDS ORDERED: VECURONIUM BROMIDE 20 MG VIAL IV ONE (12:00)
[2018-01-06] MEDS ORDERED: LACTATED RINGER'S 1000 ML INJ 3,000 ML IV ONE (12:00)
[2018-01-06] MEDS ORDERED: SODIUM CHLORIDE 0.9% 20 ML VIAL IV ONE (12:00)
[2018-01-06] MEDS ORDERED: NORMOSOL R INJ 2,000 ML IV ONE (12:00)
[2018-01-06] MEDS ORDERED: PHENYLEPH/NS 1000 MCG/10 ML SYR IV ONE (12:00)
--- NOTE | 2018-01-06 12:51 | HHI.NSPN ---
(Tigre Estrada) History Chief Complaint: Low back pain, especially at night. (Tigre Estrada) Interval History 01/03: 67-year-old male who underwent a prostate biopsy one week ago, on . He states that on the evening of 12/29/17 on into the morning of 12/30/17, he developed fever and chills, low back pain, and lower extremity numbness and paresthesias and muscle spasm. He was seen by his primary care physician and was given medication including muscle relaxant. The symptoms persisted and he returned to his primary care physician on Wednesday , 01/01/18 and was given additional medications including Cipro. He awoke on 01/02/2018 with increased lower extremity weakness and numbness, and fell in the shower in the morning, after which he was unable to ambulate or lift his legs off the bed, and continued to experience pain in the lower back. He went to the emergency room at [facility], and was given additional medication injections. He states that he could not lift his legs off the bed or ambulate in the emergency room, and was taken out to his car and lifted into the car and sent home again. He fell in the driveway again trying to get back into the house. He apparently did not urinate for the entire day. He has no complaint of pain which is numbness paresthesias in the upper extremities. No numbness or paresthesias over the chest or abdomen or pelvic region. The patient was emergently taken to the operating room for a bilateral L1-2, L2- 3, L3 4, L4 5 decompressive semi-laminectomy, medial facetectomy for spinal canal decompression. Post-operatively the patient remained intubated and was admitted to [facility] for further care and monitoring. 01/04: When seen this afternoon the patient has been extubated. He is awake and alert and readily interacts. He does report pain to the neck and the lower back. He has no numbness, tingling or weakness to the upper extremities but does say he will have pain shooting down them if he moves wrong. He denies any pain to the lower extremities but does have numbness to both feet and about the only movement he is able to do is move his knees medially and laterally. Upon examination the patient's sensorimotor exam is improved from pre-operatively 01/05: The patient desaturated this morning and a Halicat was initiated. From the EMR Nursing reported that the patient was lethargic and difficult to arouse. His sat was in the 80s and he did have a fever of 102F. He was therefore transferred back to [facility]. A chest x-ray demonstrated a left lower lobe consolidation. His blood, urine and lumbar spine wound cultures have all come back positive for Escherichia coli. When seen this afternoon the patient was awake, alert and readily interacted. He was visiting with his significant other. His upper extremity examination was variable with some improvement and some decline. His sensation and motor strength to the lower extremities had declined. The surgical incision looked good upon examination and the GUIDO drain was removed. 01/06: This afternoon the patient is on a nonrebreather mask when seen, he is tachypneic and laboured. He says he has some low back pain, especially at night. He denies any neck pain or headache. He has worsening of his muscle strength to the upper extremities and it remains poor to the lower. (Tigre Estrada) Exam Results 01/04/18 01/04/18 01/05/18 01/05/18 01/06/18 01/06/18 06:00 18:00 06:00 18:00 06:00 18:00 Intake Total 1248 ml 4984 ml 620 ml 1200 ml 535 ml Output Total 2915 ml 3135 ml 3452 ml 1500 ml Balance -1667 ml 1849 ml 620 ml -2252 ml -965 ml Intake Oral 960 ml 3360 ml 1200 ml IV Total 1000 ml 620 ml 0 ml 535 ml Platelets 288 ml 624 ml Output Urine Total 2900 ml 3125 ml 3452 ml 1500 ml Drainage Total 15 ml 10 ml # Bowel Movements 0 0 0 0 Vital Signs Date Time Temp Pulse Resp B/P (MAP) Pulse Ox O2 Delivery O2 Flow Rate FiO2 01/06/18 12:00 99.3 117 30 176/92 (120) 99 01/06/18 12:00 117 01/06/18 10:00 117 01/06/18 08:00 98.8 112 29 168/93 (118) 97 01/06/18 08:00 108 01/06/18 07:00 99 Nasal Cannula 4.00 01/06/18 06:00 121 01/06/18 04:00 121 01/06/18 04:00 99.1 108 22 155/81 (105) 97 01/06/18 02:00 111 01/06/18 00:00 99.1 112 18 148/74 (98) 96 01/06/18 00:00 121 01/05/18 22:00 121 01/05/18 20:36 99 Nasal Cannula 4.00 01/05/18 20:00 98.8 112 16 131/74 (93) 96 01/05/18 20:00 112 01/05/18 19:00 99 Nasal Cannula 4.00 01/05/18 18:00 121 01/05/18 16:00 100.0 140 20 169/111 (130) 99 01/05/18 16:00 140 01/05/18 14:00 100 01/05/18 12:00 116 01/05/18 12:00 98.4 104 20 146/77 (100) 99 01/05/18 11:46 99 Nasal Cannula 4.00 01/05/18 11:46 98.4 117 20 141/79 (99) 99 01/05/18 11:45 117 01/05/18 11:04 97 4.00 01/05/18 10:45 102.5 140 22 136/73 (94) 96 01/05/18 10:38 102.5 130 22 168/77 (107) 97 01/05/18 10:30 102.5 133 22 174/82 (112) 86 01/05/18 09:19 93 01/05/18 09:03 18 01/05/18 08:00 97.9 97 16 157/74 (101) 94 01/05/18 04:45 98.5 101 20 158/83 (108) 98 01/05/18 04:19 98 21 01/04/18 22:43 98.4 84 18 135/71 (92) 99 01/04/18 20:00 122 01/04/18 20:00 102.7 122 27 133/67 (89) 97 01/04/18 19:00 94 Room Air 01/04/18 16:00 94 01/04/18 16:00 100.3 94 24 144/72 (96) 96 Arterial Line 01/04/18 14:00 108 01/04/18 12:00 98 01/04/18 12:00 98.8 98 24 150/74 (99) 97 Arterial Line 01/04/18 10:00 96 01/04/18 09:51 98 01/04/18 08:00 81 01/04/18 08:00 98.5 81 22 146/77 (100) 99 Arterial Line 01/04/18 07:45 98.5 83 23 151/68 98 01/04/18 07:45 98.5 83 23 151/68 98 01/04/18 07:30 98.5 76 18 153/77 100 01/04/18 07:30 98.5 77 18 153/77 100 01/04/18 07:00 100 Room Air 01/04/18 06:00 88 01/04/18 04:00 99.0 82 18 152/71 (98) 98 01/04/18 04:00 82 01/04/18 03:45 98 21 01/04/18 02:00 88 01/04/18 00:00 98.9 84 14 142/74 (96) 99 01/04/18 00:00 84 01/03/18 22:00 90 01/03/18 21:50 100 21 01/03/18 20:00 98.4 90 18 140/71 (94) 99 140/71 (94) 01/03/18 20:00 90 01/03/18 19:00 100 Room Air 01/03/18 16:00 94 Room Air 01/03/18 16:00 98 01/03/18 16:00 99.8 98 16 139/68 (91) 94 01/03/18 15:30 93 Nasal Cannula 3.00 01/03/18 15:30 98 Nasal Cannula 3 01/03/18 15:30 98 Nasal Cannula 3.00 01/03/18 14:55 35 01/03/18 13:08 98 35 (Tigre Estrada) Physical Examination GENERAL: Awake & alert in bed visiting w/his significant other. His affect is slightly flat but he readily interacts. He appears in moderate distress and is on a NRB mask. His skin is cool & moist. HEENT: Normocephalic, atraumatic. NECK: Midline cervical spine mildly TTP. No evident nuchal rigidity. Neck supple. No JVD. Trachea midline. MUSCULOSKELETAL: Weakly moving all extremities, lower worse than upper. Extremities are NTTP. No evident clubbing or deformity. NEUROLOGICAL: AAOx3. Speech clear & appropriate. Follows commands w/o difficulty. CN II through XII grossly intact. Sensation decreased to the soles of both feet, o/w sensation is intact to light touch. Motor strength: LUE: Deltoid 1+/5, biceps 3/5, triceps 3/5, left hand optical brightener maker helper strong. RUE: Deltoid 1+/5, biceps 3/5, triceps 3/5, right hand optical brightener maker helper weak. LLE: Iliopsoas 1+/5, quadriceps 0/5, hamstring 0/5, tibialis anterior 0/5, gastrocnemius 0/5 & extensor hallucis longus 0/5. RLE: Iliopsoas 1+/5, quadriceps 0/5, hamstring 0/5, tibialis anterior 0/5, gastrocnemius 0/5 & extensor hallucis longus 0/5. (Tigre Estrada) Lab, Micro, Other Results Recent Impressions Lumbar Spine MRI 01/05/18 Signed Impressions: Service Date/Time: Friday, January 05, 2018 14:27 - CONCLUSION: 1. Extensive postsurgical changes with apparent left decompressive laminectomy leftward from L1 to through L4-5. 2. There is a well-circumscribed 1.4 cm cystic structure midline just posterior to the thecal sac at L4-5 which was not clearly present previously. May represent a small seroma which could result in some degree of central spinal stenosis despite the left laminectomy. 3. In addition, severe narrowing of the right L4-5 neural foramen with almost certain compromise of the right L4 nerve root. Emir Bowles MD Chest X-Ray 01/05/18 0000 Signed Impressions: Service Date/Time: Friday, January 05, 2018 11:07 - CONCLUSION: Findings suggesting new subsegmental area of consolidation in the medial left lower lobe. Jagjit Wilkinson MD Abdomen X-Ray 01/05/18 Signed Impressions: Service Date/Time: Friday, January 05, 2018 11:16 - CONCLUSION: Mildly prominent gas filled loops of small and large bowel without disproportionately dilated loops. The appearance suggests ileus. Jagjit Wilkinson MD Laboratory Tests Test 01/03/18 13:02 01/03/18 13:09 01/04/18 03:40 01/04/18 11:35 Nasal Screen MRSA (PCR) MRSA NOT DETECTED Haptoglobin 234 MG/DL Lactate Dehydrogenase 204 U/L White Blood Count 15.6 TH/MM3 16.8 TH/MM3 Red Blood Count 2.78 MIL/MM3 2.67 MIL/MM3 Hemoglobin 8.8 GM/DL 8.4 GM/DL Hematocrit 25.1 % 24.2 % Mean Corpuscular Volume 90.2 FL 90.6 FL Mean Corpuscular Hemoglobin 31.6 PG 31.5 PG Mean Corpuscular Hemoglobin Concent 35.0 % 34.8 % Red Cell Distribution Width 13.7 % 13.5 % Platelet Count 23 TH/MM3 63 TH/MM3 Mean Platelet Volume 9.0 FL 8.2 FL CBC Comment AUTO DIFF Differential Total Cells Counted 100 Neutrophils % (Manual) 83 % Band Neutrophils % 10 % Lymphocytes % 5 % Monocytes % 2 % Neutrophils # (Manual) 14.5 TH/MM3 Differential Comment FINAL DIFF MANUAL Toxic Vacuolation PRESENT Platelet Estimate LOW Platelet Morphology Comment NORMAL Blood Urea Nitrogen 43 MG/DL Creatinine 1.26 MG/DL Random Glucose 120 MG/DL Total Protein 6.2 GM/DL Albumin 1.8 GM/DL Calcium Level 7.1 MG/DL Phosphorus Level 2.1 MG/DL Magnesium Level 2.2 MG/DL Alkaline Phosphatase 170 U/L Aspartate Amino Transf (AST/SGOT) 42 U/L Alanine Aminotransferase (ALT/SGPT) 27 U/L Total Bilirubin 1.4 MG/DL Sodium Level 134 MEQ/L Potassium Level 4.0 MEQ/L Chloride Level 103 MEQ/L Carbon Dioxide Level 22.7 MEQ/L Anion Gap 8 MEQ/L Estimat Glomerular Filtration Rate 57 ML/MIN Protein Corrected Calcium 7.6 MG/DL Random Vancomycin Level 8.0 COMMENT Hepatitis A IgM Antibody NONREACTIVE Hepatitis B Surface Antigen NONREACTIVE Hepatitis B Core IgM Antibody NONREACTIVE Hepatitis C IgG Antibody NONREACTIVE HIV (1&2) Ab and P24 Ag, 4th Gener NONREACTIVE Test 01/05/18 06:50 01/05/18 10:35 01/05/18 15:16 01/06/18 05:54 White Blood Count 13.9 TH/MM3 20.2 TH/MM3 Red Blood Count 2.98 MIL/MM3 2.74 MIL/MM3 Hemoglobin 9.4 GM/DL 8.5 GM/DL Hematocrit 27.4 % 24.5 % Mean Corpuscular Volume 92.0 FL 89.7 FL Mean Corpuscular Hemoglobin 31.6 PG 31.1 PG Mean Corpuscular Hemoglobin Concent 34.4 % 34.7 % Red Cell Distribution Width 13.5 % 13.6 % Platelet Count 55 TH/MM3 81 TH/MM3 Mean Platelet Volume 9.2 FL 10.1 FL CBC Comment AUTO DIFF AUTO DIFF Differential Total Cells Counted 100 100 Neutrophils % (Manual) 82 % 94 % Band Neutrophils % 9 % 2 % Lymphocytes % 5 % 1 % Monocytes % 4 % 1 % Neutrophils # (Manual) 12.6 TH/MM3 19.4 TH/MM3 Differential Comment FINAL DIFF MANUAL FINAL DIFF MANUAL Toxic Granulation 1+ Toxic Vacuolation PRESENT PRESENT Platelet Estimate LOW LOW Platelet Morphology Comment NORMAL NORMAL Blood Urea Nitrogen 28 MG/DL 24 MG/DL Creatinine 1.07 MG/DL 0.95 MG/DL Random Glucose 92 MG/DL 101 MG/DL Total Protein 6.6 GM/DL 6.9 GM/DL Albumin 1.8 GM/DL 1.7 GM/DL Calcium Level 7.7 MG/DL 7.6 MG/DL Phosphorus Level 1.7 MG/DL 2.7 MG/DL Magnesium Level 1.7 MG/DL 1.8 MG/DL Alkaline Phosphatase 319 U/L 292 U/L Aspartate Amino Transf (AST/SGOT) 65 U/L 52 U/L Alanine Aminotransferase (ALT/SGPT) 48 U/L 41 U/L Total Bilirubin 2.3 MG/DL 2.2 MG/DL Sodium Level 131 MEQ/L 130 MEQ/L Potassium Level 3.6 MEQ/L 4.0 MEQ/L Chloride Level 99 MEQ/L 97 MEQ/L Carbon Dioxide Level 23.3 MEQ/L 22.5 MEQ/L Anion Gap 9 MEQ/L 11 MEQ/L Estimat Glomerular Filtration Rate 69 ML/MIN 79 ML/MIN Blood Gas Puncture Site LT RADIAL Blood Gas Patient Temperature 98.6 Blood Gas HCO3 22 mmol/L Blood Gas Base Excess -0.5 mmol/L Blood Gas Oxygen Saturation 95 % Arterial Blood pH 7.52 Arterial Blood Partial Pressure CO2 27 mmHg Arterial Blood Partial Pressure O2 86 mmHg Arterial Blood Oxygen Content 12.7 Vol % Arterial Blood Carboxyhemoglobin 1.8 % Arterial Blood Methemoglobin 0.7 % Blood Gas Hemoglobin 9.4 G/DL Oxygen Delivery Device NASAL CANNULA Blood Gas Liter Flow 4 L/M Lactic Acid Level 1.6 mmol/L Plasma Cells 2 % Test 01/06/18 11:56 Blood Gas Puncture Site RT RADIAL Blood Gas Patient Temperature 98.6 Blood Gas HCO3 22 mmol/L Blood Gas Base Excess -1.2 mmol/L Blood Gas Oxygen Saturation 89 % Arterial Blood pH 7.45 Arterial Blood Partial Pressure CO2 33 mmHg Arterial Blood Partial Pressure O2 59 mmHg Arterial Blood Oxygen Content 11.1 Vol % Arterial Blood Carboxyhemoglobin 1.4 % Arterial Blood Methemoglobin 0.9 % Blood Gas Hemoglobin 8.9 G/DL Oxygen Delivery Device NASAL CANNULA Blood Gas Liter Flow 4 L/M (Tigre Estrada) Medical Decision Making Impression and Plan Impression: 1. Severe progressive paraplegia. Although he has significant spinal stenosis in the cervical thoracic and lumbar region, his overall presentation and exam suggests that the lumbar stenosis is the immediate cause of his severe lower extremity deficit, positive cauda equina syndrome. 2. Possible sepsis 3. Acute kidney disease 4. 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 Severe lumbar canal stenosis 2. Cauda equina syndrome 3. Cervical degenerative disease with severe stenosis and myelopathy 4. Thoracic disc disease with severe canal stenosis and myelopathy 5. Sepsis 6. Thrombocytopenia 7. Acute kidney disease Respiratory insufficiency, CXR w/LLL consolidation. Ileus suggested by abdominal x-ray . Patient's condition is guarded. He is requiring increasing oxygen support. His upper extremity muscle strength has declined bilaterally. T max 100.0 yesterday afternoon. Intermittently elevated SBP. Tachycardiac. Increasing tachypnea. Reviewed labs for today. Increase in leukocytosis & drop in haemoglobin level. Improvement of thrombocytopenia. Sodium 130. Improvement in eGFR. Resolution of hypophosphatemia. Improvement of transaminases & alk phos. Blood cultures () no growth x1d. Wound culture () positive for Escherichia coli. Blood cultures ( & ) positive for Escherichia coli. Urine culture () positive for Escherichia coli. MRI lumbar spine () demonstrated extensive surgical changes. There is a 1.4 cm midline cystic structure just posterior of the thecal sac not clearly present previously which may represent a small seroma which could result in central spinal stenosis. Severe narrowing of the right L4-5 neural foramen w/ almost certain right L4 nerve root compromise. GUIDO drain with 10 mL output for the past 24 hours as of shift change this morning. POD #3 () s/p: 1. Bilateral L1-2, L2-3, L3 4, L4 5 decompressive semi-laminectomy, medial facetectomy for spinal canal decompression. Plan: Discussed patient w/Nursing, Health Care Facilities Inspector & Infectious Disease. Primary & critical care management per Health Care Facilities Inspector. Neuro checks. Mobilise patient w/assistance. Turn patient q2h but keep the patient off of his back. HOB between 30 and 45 degrees. Physical & Occupational Therapy eval & tx. Hold pharmacologic DVT prophylaxis. Mechanical DVT prophylaxis. Stat MRI brain, cervical & thoracic spines w/o & w/contrast. (Tigre Estrada) Attending Statement The exam, history, and the medical decision-making described in the above note were completed with the assistance of the mid-level provider. I reviewed and agree with the findings presented. I attest that I had a [id number] encounter with the patient on the same day, and personally performed and documented my assessment and findings in the medical record. Repeat imaging study reveals probable epidural inflammatory tissue-possible early cervical epidural infection. Significant mid cervical stenosis primarily C2-C6 levels with cord compression and edema. Also rather severe T2-T6 and T10- 12 thoracic stenosis. Possible epidural fluid collection-early abscess formation lower thoracic area. Discussed with patient's family. Examination indicates progressive upper cervical paresis. Plan return to operating room for cervical thoracic decompression. Will likely require staged procedure with revision lumbar decompression. (Jerry Chakraborty MD) Tigre Estrada Jan 06, 2018 12:51 Jerry Chakraborty MD Jan 11, 2018 17:30
--- NOTE | 2018-01-06 13:25 | RADRPT ---
EXAM DATE/TIME: 01/06/2018 12:51 [facility] COMPARISON: CHEST SINGLE AP, January 05, 2018, 11:07. INDICATIONS : Respiratory failure. MEDICAL HISTORY : kidney stones, SURGICAL HISTORY : Tonsillectomy. kidney surgery, lumbar surgery ENCOUNTER: Initial ACUITY: 4 - 6 days PAIN SCORE: 0/10 LOCATION: Bilateral chest FINDINGS: The cardiac silhouette is enlarged in transverse diameter. The patient is rotated into the right post erior oblique position. The lungs are hypoinflated. There is subsegmental atelectasis in the both ba ses. No pleural effusions are identified. CONCLUSION: 1. Cardiomegaly with hypoinflation 2. Worsening bibasilar atelectasis Alberto Covington MD on January 06, 2018 at 13:22 Board Certified Radiologist. This report was verified electronically.
[2018-01-06] MEDS ORDERED: Vancomycin Consult Pharmacy 1 EA OTHER SCH (13:30)
--- NOTE | 2018-01-06 13:37 | HHI.IDPN ---
Subjective Subjective Remarks Patient seen and examined with Dr. Charles Mr. Reeves is a 67 y/o CM with history of BPH who underwent a prostate biopsy one week ago, on 12/27/17. On the evening of 12/29/17 he developed fever and chills, low back pain, and lower extremity numbness and paresthesias and muscle spasm. He was seen by his primary care physician and was given medication including muscle relaxant. The symptoms persisted and he returned to his primary care physician on 01/01/18 and was given additional medications including Cipro and medrol dose pack. On 01/02/2018 patient woke up with increased lower extremity weakness and numbness, and fell in the shower in the morning, after which he was unable to ambulate or lift his legs off the bed , and continued to experience pain in the lower back. He went to the emergency room at [facility], and was given additional medication injections. He could not lift his legs off the bed or ambulate in the emergency room, and was taken out to his car and lifted into the car and sent home again. He fell in the driveway again trying to get back into the house. He apparently did not urinate for the entire day. He has no complaint of pain which is numbness paresthesias in the upper extremities. Reportedly on admission there was no numbness or paresthesias over the chest or abdomen or pelvic region. The MRI of thoracic spine shows severe canal stenosis at T2-3 and T5-6 level with cord compressions, complete or near complete canal obliteration at L2-3 L3- 4 and severe multilevel canal stenosis of the C-spine. Entire spine including C spine shows areas of stenosis. Upon my discussion with patient had to be emergently taken to the OR for decompression. Intraop cultures were taken and no hardware placed at present time but it appears that patient will need more surgeries. The MRIs done were non contrast due to Acute renal failure on admission and cannot be repeated. Per dw plan is to treat as epidural abscess stone since patient was treated for few days with antibiotics prior to arrival and also due to patient needing hardware placement which can be seeded. Previously, Intubated, being weaned off sedation, UO is good peck in place. Not on any pressors. There is a plan wean and extubate. ID consulted for evaluation and Management of GN madonna bacteremia (E.coli CTX M negative) and possible epidural abscess. On nonrebreather mask, in ISC, not pressors Low-grade 99.1 --99.3, tachycardic No rash, no diarrhea Neck stiffness, no pain reported BUE weakness, gross movement but unable to lift against gravity Flicker movement RLE Awake, alert, answering questions appropriately. Appears anxious. Ileus noted on x-ray Antibiotics Cefepime IV Lines Line sites with no e.o infection Past Medical History reviewed (Pablo Bella) Allergies: Coded Allergies: No Known Allergies (Unverified , 01/02/18) Objective . Vital Signs Date Time Temp Pulse Resp B/P (MAP) Pulse Ox O2 Delivery O2 Flow Rate FiO2 01/06/18 12:00 99.3 117 30 176/92 (120) 99 01/06/18 12:00 117 01/06/18 10:00 117 01/06/18 08:00 98.8 112 29 168/93 (118) 97 01/06/18 08:00 108 01/06/18 07:00 99 Nasal Cannula 4.00 01/06/18 06:00 121 01/06/18 04:00 121 01/06/18 04:00 99.1 108 22 155/81 (105) 97 01/06/18 02:00 111 01/06/18 00:00 99.1 112 18 148/74 (98) 96 01/06/18 00:00 121 01/05/18 22:00 121 01/05/18 20:36 99 Nasal Cannula 4.00 01/05/18 20:00 98.8 112 16 131/74 (93) 96 01/05/18 20:00 112 01/05/18 19:00 99 Nasal Cannula 4.00 01/05/18 18:00 121 01/05/18 16:00 100.0 140 20 169/111 (130) 99 01/05/18 16:00 140 01/05/18 14:00 100 . Laboratory Tests Test 01/05/18 06:50 01/06/18 05:54 White Blood Count 13.9 TH/MM3 20.2 TH/MM3 Red Blood Count 2.98 MIL/MM3 2.74 MIL/MM3 Hemoglobin 9.4 GM/DL 8.5 GM/DL Hematocrit 27.4 % 24.5 % Mean Corpuscular Volume 92.0 FL 89.7 FL Mean Corpuscular Hemoglobin 31.6 PG 31.1 PG Mean Corpuscular Hemoglobin Concent 34.4 % 34.7 % Red Cell Distribution Width 13.5 % 13.6 % Platelet Count 55 TH/MM3 81 TH/MM3 Mean Platelet Volume 9.2 FL 10.1 FL CBC Comment AUTO DIFF AUTO DIFF Differential Total Cells Counted 100 100 Neutrophils % (Manual) 82 % 94 % Band Neutrophils % 9 % 2 % Lymphocytes % 5 % 1 % Monocytes % 4 % 1 % Neutrophils # (Manual) 12.6 TH/MM3 19.4 TH/MM3 Differential Comment FINAL DIFF MANUAL FINAL DIFF MANUAL Toxic Granulation 1+ Toxic Vacuolation PRESENT PRESENT Platelet Estimate LOW LOW Platelet Morphology Comment NORMAL NORMAL Plasma Cells 2 % Laboratory Tests Test 01/05/18 06:50 01/05/18 15:16 01/06/18 05:54 01/06/18 12:35 Blood Urea Nitrogen 28 MG/DL 24 MG/DL Creatinine 1.07 MG/DL 0.95 MG/DL Random Glucose 92 MG/DL 101 MG/DL Total Protein 6.6 GM/DL 6.9 GM/DL Albumin 1.8 GM/DL 1.7 GM/DL Calcium Level 7.7 MG/DL 7.6 MG/DL Phosphorus Level 1.7 MG/DL 2.7 MG/DL Magnesium Level 1.7 MG/DL 1.8 MG/DL Alkaline Phosphatase 319 U/L 292 U/L Aspartate Amino Transf (AST/SGOT) 65 U/L 52 U/L Alanine Aminotransferase (ALT/SGPT) 48 U/L 41 U/L Total Bilirubin 2.3 MG/DL 2.2 MG/DL Sodium Level 131 MEQ/L 130 MEQ/L Potassium Level 3.6 MEQ/L 4.0 MEQ/L Chloride Level 99 MEQ/L 97 MEQ/L Carbon Dioxide Level 23.3 MEQ/L 22.5 MEQ/L Anion Gap 9 MEQ/L 11 MEQ/L Estimat Glomerular Filtration Rate 69 ML/MIN 79 ML/MIN Lactic Acid Level 1.6 mmol/L Microbiology Date/Time Source Procedure Growth Status 01/05/18 04:00 Blood Peripheral Aerobic Blood Culture - Preliminary NO GROWTH IN 1 DAY Resulted 01/05/18 04:00 Blood Peripheral Anaerobic Blood Culture - Preliminary NO GROWTH IN 1 DAY Resulted 01/05/18 03:50 Blood Peripheral Aerobic Blood Culture - Preliminary NO GROWTH IN 1 DAY Resulted 01/05/18 03:50 Blood Peripheral Anaerobic Blood Culture - Preliminary NO GROWTH IN 1 DAY Resulted 01/03/18 13:25 Blood Peripheral Aerobic Blood Culture - Final Escherichia Coli Resulted 01/03/18 13:25 Blood Peripheral Anaerobic Blood Culture - Preliminary NO GROWTH IN 3 DAYS Resulted Imaging Last Impressions Thoracic Spine MRI 01/03/18 0000 Signed Impressions: Service Date/Time: Wednesday, January 03, 2018 00:38 - CONCLUSION: Multilevel disc abnormalities. Severe canal stenosis at T2-3 and T5-6 with cord compression and mild signal changes in the cord at T2-3 and moderate signal changes within the cord at T5-6. Less severe changes at L2 additional levels as described. Harley Herrera MD Lumbar Spine MRI 01/03/18 0000 Signed Impressions: Service Date/Time: Wednesday, January 03, 2018 00:38 - CONCLUSION: Complete or near complete canal obliteration at L2-3, L3-4 and L4-5 with less severe compromise at L1-2 and T12-L1. Harley Herrera MD Cervical Spine MRI 01/03/18 0000 Signed Impressions: Service Date/Time: Wednesday, January 03, 2018 00:38 - CONCLUSION: Severe multilevel canal stenosis. Findings appear to be most critical at C4-5 and C5-6 where AP canal dimension is reduced to 4-5 mm, however also quite severe at C2-3 and C3-4. Harley Herrera MD Chest X-Ray 01/02/18 2629 Signed Impressions: Service Date/Time: Tuesday, January 02, 2018 23:11 - CONCLUSION: Mild basilar atelectasis or scarring. Harley Herrera MD Physical Exam GENERAL: This is a well-nourished, well-developed patient, NRM. SKIN: Warm and dry. HEAD: Normocephalic. No temporal or scalp tenderness. EYES: Pupils equal round and reactive. No scleral icterus. No injection or drainage. ENT: No thrush, dry oral mucosa. Nose without bleeding. Airway patent. NECK: Trachea midline. Neck mild rigidity. CARDIOVASCULAR: HS audible. Tachycardia RESPIRATORY: Diminished breath sounds. No wheezes, rales, or rhonchi. Tachypnea. GASTROINTESTINAL: Abdomen non-tender, slightly distended. Hypoactive bowel sounds : Epck catheter draining gila colored urine MUSCULOSKELETAL: Extremities without clubbing, cyanosis. BUE +1 edema, BLE +1 edema, Bilat knee edema +1. Flicker movement LLE. NEUROLOGICAL: Awake and Alert. Irritable at times. Flicker noted at knee level LLE. BUE weakness, gross movement, unable to hold against gravity LINES: IV line sites with no e.o infection. (Pablo Bella) Assessment & Plan Remarks REMARKS: Severe Sepsis present on admission (leucocytosis, Tachycardia, source: bacteremia and epidural abscess) HCAP Pneumonia - CXR new infiltrate Suspect cervical epidural abscess E.coli bacteremia (CTX M negative) E.Coli UTI recent prostate biopsy. 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 Recent history of prostate biopsy as risk factor for E.coli bacteremia. Paraparesis present on admission. Ileus - Abdominal x-ray showed mildly prominent gas-filled loops of large bowel with disproportionately dilated loops. The appearance suggests ileus Recs: DC cefepime IV, start ceftazidime IV Vancomycin IV, metronidazole 500 mg Q8 IV Monitor CBC, CMP Wound cx, urine CX and Blood cx positive for E.coli. 2D ECHO no obvious vegetation. Will consider APRYL if Neurosurgery clears him for APRYL. MRI brain, Cspine, Tspine Needs CT Chest/abd pelvis in future to look for prostate abscess etc as source of infection or evidence of distant dissemination to Spleen,Liver etc. Urology consult appreciated. Gastroenterology consult appreciated May benefit with Relistor subcu, reglan, NGT per critical care team Follow cultures Follow clinically Further recommendations to follow Will coordinate plan with critical care, neurosurgery (Pablo Bella) Remarks The exam, history, and the medical decision-making described in the above note were completed with the assistance of the mid-level provider. I reviewed and agree with the findings presented. I attest that I had a [id number] encounter with the patient on the same day, and personally performed and documented my assessment and findings in the medical record. Appears more Short of breath CXR with infiltrates. jose alberto Estrada Neurosurgery PA: MRI C spine and MRI brain Will hold off on CT C/A/P as patient short of breath and MRI more imp. CXR reviewed by me: aspiration PNA Change regimen to Ceftaz, Vanco and Flagyl Vanco IV and Flagyl IV for PNA coverage Ceftaz better ROPE MACHINE SETTER coverage. Consult Gastroenterology: Ileus dw : NGT, Reglan promotility agent. ? Constipation from neuro issues. dw Male Spouse: above plan plus possible need for intubation, dw him concern for meningitis and brain abscess, cervical spine abscess Critical thinking and decision making (Shanda Charles MD) Pablo Bella [facility] Jan 06, 2018 13:37 Shanda Charles MD Jan 06, 2018 15:14
[2018-01-06 14:05] LABS: BICARBONATE 21.5 MEQ/L (21.0-32.0); CALCIUM 7.5 MG/DL (8.5-10.1); CREATININE 0.91 MG/DL (0.60-1.30)
--- NOTE | 2018-01-06 14:25 | HHI.PR ---
Subjective Patient symptoms today 67y.o male with Urosepsis post Prostate biopsy and spinal stenosis most likely exacerbation not related he is s/p bilateral L1-2, L2-3, L3 4, L4 5 decompressive semi-laminectomy, medial facetectomy for spinal canal decompression on 01/03/18. He was seen this afternoon at bedside. Afebrile. Leukocytosis got worse today, its at 20 ( was 13 yesterday). His Chest xray is c/w left lower lobe consolidation. Diagnosed with pneumonia. His repeat CXR today did not show consolidation though and c/w Worsening bibasilar atelectasis His Cultures from 01/03/18 were positive for E coli and he is on correct IV antbx. Repeat cultures 01/05/18 so far no growth. Also his abdominal x ray suggests ileus Peck is in place, no hematuria. Pt's prostate biopsy results are benign. He is on Oxygen mask now. At this time states that his back pain is better. MRI brain and spine ordered today by neurosx due to his upper and low extremities weakness progression Objective Vital Signs Vital Signs Date Time Temp Pulse Resp B/P (MAP) Pulse Ox O2 Delivery O2 Flow Rate FiO2 01/06/18 14:00 114 01/06/18 12:00 99.3 117 30 176/92 (120) 99 01/06/18 12:00 117 01/06/18 10:00 117 01/06/18 08:00 98.8 112 29 168/93 (118) 97 01/06/18 08:00 108 01/06/18 07:00 99 Nasal Cannula 4.00 01/06/18 06:00 121 01/06/18 04:00 121 01/06/18 04:00 99.1 108 22 155/81 (105) 97 01/06/18 02:00 111 01/06/18 00:00 99.1 112 18 148/74 (98) 96 01/06/18 00:00 121 01/05/18 22:00 121 01/05/18 20:36 99 Nasal Cannula 4.00 01/05/18 20:00 98.8 112 16 131/74 (93) 96 01/05/18 20:00 112 01/05/18 19:00 99 Nasal Cannula 4.00 01/05/18 18:00 121 01/05/18 16:00 100.0 140 20 169/111 (130) 99 01/05/18 16:00 140 Intake & Output 01/06/18 01/06/18 07:00 19:00 Output Total 1500 ml Balance -1500 ml Output Urine Total 1500 ml # Bowel Movements 0 Result Diagram: 01/06/18 0554 01/06/18 1112 Imaging Last 24 hours Impressions Chest X-Ray 01/06/18 0000 Signed Impressions: Service Date/Time: January 12:51 - CONCLUSION: 1. Cardiomegaly with hypoinflation 2. Worsening bibasilar atelectasis Alberto Covington MD Medications and IVs Current Medications Medications (Trade) Dose Ordered Sig/Kaveh Route Start Time Stop Time Status Last Admin (Robaxin) 500 mg QID PO 01/03/18 09:00 01/06/18 09:30 (Flomax) 0.4 mg HS PO 01/03/18 21:00 01/05/18 20:12 (Lipitor) 40 mg DAILY PO 01/03/18 09:00 01/06/18 09:30 (NS Flush) 2 ml UNSCH PRN IV FLUSH 01/03/18 05:00 (NS Flush) 2 ml BID IV FLUSH 01/03/18 09:00 01/05/18 20:12 (Tylenol) 650 mg Q6H PRN PO 01/03/18 05:00 01/05/18 10:28 (Zofran Inj) 4 mg Q6H PRN IV PUSH 01/03/18 05:00 01/05/18 15:50 (Roxana-Colace) 1 tab BID PO 01/03/18 09:00 01/06/18 09:30 (Milk Of Magnesia Liq) 30 ml Q12H PRN PO 01/03/18 05:00 01/06/18 11:39 (Senokot) 17.2 mg Q12H PRN PO 01/03/18 05:00 (Dulcolax Supp) 10 mg DAILY PRN RECTAL 01/03/18 05:00 (Lactulose Liq) 30 ml DAILY PRN PO 01/03/18 05:00 01/06/18 11:39 (Tears Naturale Opth Soln) 1 drop Q8HR EACH EYE 01/03/18 14:00 01/06/18 05:57 (Albuterol Neb) 2.5 mg Q2HR NEB PRN NEB 01/03/18 10:00 (Pepcid) 20 mg BID PO 01/04/18 21:00 01/06/18 09:30 Potassium Chloride/Sodium Chloride 1,000 ml @ 125 mls/hr Q8H IV 01/05/18 12:30 01/06/18 09:31 (K-Phos Neutral) 250 mg Q6HR PO 01/05/18 18:00 01/06/18 11:39 (Roxicodone) 5 mg Q4H PRN PO 01/05/18 15:45 (Roxicodone) 10 mg Q6H PRN PO 01/05/18 15:45 01/06/18 05:55 (Morphine Inj) 2 mg Q4H PRN IV PUSH 01/05/18 15:45 01/05/18 16:00 (Duoneb Neb) 1 ampule Q6HR NEB NEB 01/06/18 16:00 Ceftazidime 2000 mg/Sodium Chloride 100 ml @ 200 mls/hr Q8H IV 01/06/18 14:00 Metronidazole 100 ml @ 100 mls/hr Q8H IV 01/06/18 14:00 Pharmacy Profile Note 0 ml @ 0 mls/hr UNSCH OTHER 01/06/18 13:30 UNV Assessment and Plan Assessment and Plan 67 y.o male s/p prostate biopsy last week, results of biopsy are benign, no cancer found Admitted for urosepsis and several areas of spinal stenosis, managed surgically. Diagnosed with pneumonia No additional recommendations or intervention Continue care as per primary team and Neurosurgical and ID teams. Continue IV antbx Keep peck catheter as needed to monitor I&O and until pt is strong enough to use restroom Flomax 0.4mg daily MRI is pending Pt will need to f/u with as outpt once completely recovered Urology remains available as needed Marcin Kidd Jan 06, 2018 14:25
[2018-01-06] MEDS ORDERED: GADODIAMIDE PF 287 MG/ML 20 ML VIAL (for RAD MRI) IVCONTRAST ONE (15:09)
--- NOTE | 2018-01-06 15:26 | PD.CONS ---
HPI History of Present Illness This is a 67 year old who presented to [facility] for lower extremity weakness, numbness, back pain, fever that developed after a prostate bx on 12/27/17. On presentation he was found to have urosepsis, cauda equina syndrome and lumbar canal stenosis, and is now s/p emergent decompressive laminectomy. He is being treated for bacteremia and poss epidural abscess. GI consulted for ileus and constipation. Pt has developed abd distention over the last few days. NO BM in 4 days and the last BM 4d ago was scant. Denies n/v. Abd is tender to palpation. He is more concerned about his back pain. KUB 01/05 showed He is usually constipated and takes multiple servings metamucil daily. He had a normal colonoscopy 4 y ago in [place] and a normal EGD 8 y ago in [place]. (Deyanira Laboy) PFSH Past Medical History depression BPH hypothyroidism HLD kidney stones horseshoe kidneys Past Surgical History prostate bx tonsillectomy kidney surgery (Deyanira Laboy) Coded Allergies: No Known Allergies (Unverified , 01/02/18) Family History father - bone marrow ca Social History rare etoh was smoking 1ppd but has not smoked since admission denies illicit drug use (Deyanira Laboy) Review of Systems Constitutional: COMPLAINS OF: Fever Endocrine: DENIES: Polydipsia Eyes: DENIES: Blurred vision Ears, nose, mouth, throat: DENIES: Hearing loss Respiratory: DENIES: Cough Cardiovascular: DENIES: Chest pain Gastrointestinal: COMPLAINS OF: Abdominal pain, Constipation, Swelling of Abdomen, DENIES: Nausea Musculoskeletal: COMPLAINS OF: Back pain Integumentary: DENIES: Abnormal pigmentation Hematologic/lymphatic: DENIES: Bruising Immunologic/allergic: DENIES: Eczema Neurologic: COMPLAINS OF: Abnormal gait, Paresthesias Psychiatric: DENIES: Confusion (Deyanira Laboy) GI Exam Vitals I&O Vital Signs Date Time Temp Pulse Resp B/P (MAP) Pulse Ox O2 Delivery O2 Flow Rate FiO2 01/06/18 14:00 114 01/06/18 12:00 99.3 117 30 176/92 (120) 99 01/06/18 12:00 117 01/06/18 10:00 117 01/06/18 08:00 98.8 112 29 168/93 (118) 97 01/06/18 08:00 108 01/06/18 07:00 99 Nasal Cannula 4.00 01/06/18 06:00 121 01/06/18 04:00 121 01/06/18 04:00 99.1 108 22 155/81 (105) 97 01/06/18 02:00 111 01/06/18 00:00 99.1 112 18 148/74 (98) 96 01/06/18 00:00 121 01/05/18 22:00 121 01/05/18 20:36 99 Nasal Cannula 4.00 01/05/18 20:00 98.8 112 16 131/74 (93) 96 01/05/18 20:00 112 01/05/18 19:00 99 Nasal Cannula 4.00 01/05/18 18:00 121 01/05/18 16:00 100.0 140 20 169/111 (130) 99 01/05/18 16:00 140 I/O 01/05/18 01/05/18 01/05/18 01/06/18 01/06/18 01/06/18 07:00 15:00 23:00 07:00 15:00 23:00 Intake Total 1200 ml 535 ml Output Total 2100 ml 1352 ml 1500 ml Balance -900 ml -817 ml -1500 ml Intake Oral 1200 ml IV Total 0 ml 535 ml Output Urine Total 2100 ml 1352 ml 1500 ml # Bowel Movements 0 0 0 Imaging Last Impressions Chest X-Ray 01/06/18 0000 Signed Impressions: Service Date/Time: January 12:51 - CONCLUSION: 1. Cardiomegaly with hypoinflation 2. Worsening bibasilar atelectasis Alberto Covington MD Lumbar Spine MRI 01/05/18 0000 Signed Impressions: Service Date/Time: Friday, January 05, 2018 14:27 - CONCLUSION: 1. Extensive postsurgical changes with apparent left decompressive laminectomy leftward from L1 to through L4-5. 2. There is a well-circumscribed 1.4 cm cystic structure midline just posterior to the thecal sac at L4-5 which was not clearly present previously. May represent a small seroma which could result in some degree of central spinal stenosis despite the left laminectomy. 3. In addition, severe narrowing of the right L4-5 neural foramen with almost certain compromise of the right L4 nerve root. Emir Bowles MD Abdomen X-Ray 01/05/18 0000 Signed Impressions: Service Date/Time: Friday, January 05, 2018 11:16 - CONCLUSION: Mildly prominent gas filled loops of small and large bowel without disproportionately dilated loops. The appearance suggests ileus. Jagjit Wilkinson MD Thoracic Spine MRI 01/03/18 0000 Signed Impressions: Service Date/Time: Wednesday, January 03, 2018 00:38 - CONCLUSION: Multilevel disc abnormalities. Severe canal stenosis at T2-3 and T5-6 with cord compression and mild signal changes in the cord at T2-3 and moderate signal changes within the cord at T5-6. Less severe changes at L2 additional levels as described. Harley Herrera MD Cervical Spine MRI 01/03/18 0000 Signed Impressions: Service Date/Time: Wednesday, January 03, 2018 00:38 - CONCLUSION: Severe multilevel canal stenosis. Findings appear to be most critical at C4-5 and C5-6 where AP canal dimension is reduced to 4-5 mm, however also quite severe at C2-3 and C3-4. Harley Herrera MD Laboratory Test 01/05/18 15:16 01/06/18 05:54 01/06/18 11:12 01/06/18 11:56 Lactic Acid Level 1.6 mmol/L White Blood Count 20.2 TH/MM3 Red Blood Count 2.74 MIL/MM3 Hemoglobin 8.5 GM/DL Hematocrit 24.5 % Mean Corpuscular Volume 89.7 FL Mean Corpuscular Hemoglobin 31.1 PG Mean Corpuscular Hemoglobin Concent 34.7 % Red Cell Distribution Width 13.6 % Platelet Count 81 TH/MM3 Mean Platelet Volume 10.1 FL CBC Comment AUTO DIFF Differential Total Cells Counted 100 Neutrophils % (Manual) 94 % Band Neutrophils % 2 % Lymphocytes % 1 % Monocytes % 1 % Neutrophils # (Manual) 19.4 TH/MM3 Differential Comment FINAL DIFF MANUAL Plasma Cells 2 % Toxic Vacuolation PRESENT Platelet Estimate LOW Platelet Morphology Comment NORMAL Blood Urea Nitrogen 24 MG/DL 25 MG/DL Creatinine 0.95 MG/DL 0.91 MG/DL Random Glucose 101 MG/DL 126 MG/DL Total Protein 6.9 GM/DL Albumin 1.7 GM/DL Calcium Level 7.6 MG/DL 7.5 MG/DL Phosphorus Level 2.7 MG/DL Magnesium Level 1.8 MG/DL Alkaline Phosphatase 292 U/L Aspartate Amino Transf (AST/SGOT) 52 U/L Alanine Aminotransferase (ALT/SGPT) 41 U/L Total Bilirubin 2.2 MG/DL Sodium Level 130 MEQ/L 130 MEQ/L Potassium Level 4.0 MEQ/L 4.0 MEQ/L Chloride Level 97 MEQ/L 99 MEQ/L Carbon Dioxide Level 22.5 MEQ/L 21.5 MEQ/L Anion Gap 11 MEQ/L 10 MEQ/L Estimat Glomerular Filtration Rate 79 ML/MIN 83 ML/MIN Ammonia 21 MCMOL/L Blood Gas Puncture Site RT RADIAL Blood Gas Patient Temperature 98.6 Blood Gas HCO3 22 mmol/L Blood Gas Base Excess -1.2 mmol/L Blood Gas Oxygen Saturation 89 % Arterial Blood pH 7.45 Arterial Blood Partial Pressure CO2 33 mmHg Arterial Blood Partial Pressure O2 59 mmHg Arterial Blood Oxygen Content 11.1 Vol % Arterial Blood Carboxyhemoglobin 1.4 % Arterial Blood Methemoglobin 0.9 % Blood Gas Hemoglobin 8.9 G/DL Oxygen Delivery Device NASAL CANNULA Blood Gas Liter Flow 4 L/M Test 01/06/18 12:35 Lactic Acid Level 1.1 mmol/L Date/Time Source Procedure Growth Status 01/05/18 04:00 Blood Peripheral Aerobic Blood Culture - Preliminary NO GROWTH IN 1 DAY Resulted 01/05/18 04:00 Blood Peripheral Anaerobic Blood Culture - Preliminary NO GROWTH IN 1 DAY Resulted 01/02/18 23:35 Urine Clean Catch Urine Culture - Final Escherichia Coli Complete 01/03/18 07:20 Wound Back Fungal Smear - Final NO FUNGAL ELEMENTS SEEN. Resulted 01/03/18 07:20 Wound Back Fungal Culture Pending Resulted Physical Examination HEENT: PERRL; normocephalic; atraumatic CHEST: CTA CARDIAC: RRR ABDOMEN: distended, semifirm, diffuse TTP; BS hypoactive EXTREMITIES: No clubbing, cyanosis, or edema. SKIN: Normal; no rash; no jaundice. CENTRAL SERVICE SUPPLY DISTRIBUTOR: No focal deficits; alert and oriented times three. (Deyanira Laboy) Assessment and Plan Plan ASSESSMENT -abd distention, abd pain - ileus. no BM in 4 d and last BM scant. On pain meds. KUB 4/4 mildly prominent loops small and large bowel, suggestive ileus. d/w attending - anemia - likely multifactorial HH stable - elevated LFTs - unclear etiology...DILI vs sepsis vs other etiology. hep panel neg. - leukocytosis - poss epidural abscess, bacteremia, ID following - urosepsis, spinal cord compression s/p decompression, VALENCIA, thrombocytopenia, - per attending. ID, urology following PLAN - NGT - ok for ice chips - 1 x relistor now - 2 x SSE - reglan - KUB in am - further recs to follow pt seen by myself and Dr Huang and this note is on his behalf (Deyanira Laboy) Physician Comments seen and examined with ORACLE CONSULTANT, illeus/constipation. Manual disimapction if needed followed by Soap suds enemas and relistore 12mg sq injection. Minimize pain meds as much as possible. Repeat KUB. (Mackenzie Huang MD) Deyanira Laboy Jan 06, 2018 15:26 Mackenzie Huang MD Jan 06, 2018 17:32
[2018-01-06] MEDS: MORPHINE SULFATE 2 MG/ML SYRINGE IV PUSH PRN (15:41)
[2018-01-06] MEDS: metroNIDAZOLE 500 MG INJ 100 ML IV SCH ×2 (15:42→21:01)
[2018-01-06] MEDS: cefTAZidime INJ 2,000 MG in SODIUM CHLORIDE 0.9% INJ 100 ML IV SCH ×2 (15:43→21:01)
--- NOTE | 2018-01-06 15:46 | HHI.PR ---
Subjective Remarks As per RN patient had episode of AMS where he rolled his eyes over. Also desated and had to be placed on a NRB mask PAtient back to nasal canula, awake and alert. Fever of 100.0 yesterday Objective Vitals Vital Signs Date Time Temp Pulse Resp B/P (MAP) Pulse Ox O2 Delivery O2 Flow Rate FiO2 01/06/18 14:00 114 01/06/18 12:00 99.3 117 30 176/92 (120) 99 01/06/18 12:00 117 01/06/18 10:00 117 01/06/18 08:00 98.8 112 29 168/93 (118) 97 01/06/18 08:00 108 01/06/18 07:00 99 Nasal Cannula 4.00 01/06/18 06:00 121 01/06/18 04:00 121 01/06/18 04:00 99.1 108 22 155/81 (105) 97 01/06/18 02:00 111 01/06/18 00:00 99.1 112 18 148/74 (98) 96 01/06/18 00:00 121 01/05/18 22:00 121 01/05/18 20:36 99 Nasal Cannula 4.00 01/05/18 20:00 98.8 112 16 131/74 (93) 96 01/05/18 20:00 112 01/05/18 19:00 99 Nasal Cannula 4.00 01/05/18 18:00 121 01/05/18 16:00 100.0 140 20 169/111 (130) 99 01/05/18 16:00 140 I/O 01/05/18 01/05/18 01/05/18 01/06/18 01/06/18 01/06/18 07:00 15:00 23:00 07:00 15:00 23:00 Intake Total 1200 ml 535 ml Output Total 2100 ml 1352 ml 1500 ml Balance -900 ml -817 ml -1500 ml Intake Oral 1200 ml IV Total 0 ml 535 ml Output Urine Total 2100 ml 1352 ml 1500 ml # Bowel Movements 0 0 0 Result Diagram: 01/06/18 0554 01/06/18 1112 Imaging Last Impressions Abdomen X-Ray 01/07/18 0600 Signed Impressions: Service Date/Time: Sunday, January 07, 2018 03:50 - CONCLUSION: Diffuse gas filled distention of colon and small bowel again likely representing ileus. No significant interval change. Nasogastric tube is in place. Marcial Redmond MD Thoracic Spine X-Ray 01/07/18 Signed Impressions: Service Date/Time: January 22:52 - CONCLUSION: Single AP intraoperative image for localization. Marcial Redmond MD Thoracic Spine MRI 01/06/18 Signed Impressions: Service Date/Time: January 14:23 - CONCLUSION: 1. Multilevel cord compression is due predominantly to multiple disc protrusions. Significant cord compression is present at least 6 levels. There is also cord compression posteriorly at the T10 level due to a fluid collection in the midline which measures 6 mm in AP dimension. 2. There is also focal subcutaneous right parasagittal fluid collection at T10 and T11 which does not demonstrate peripheral contrast enhancement. An abscess is suspected. Jagjit Wilkinson MD Chest X-Ray 01/06/18 Signed Impressions: Service Date/Time: January 20:20 - CONCLUSION: 1. Endotracheal tube tip in proximal right mainstem bronchus. This should be withdrawn about 3 cm. Nasogastric tube in stomach. 2. Left central line tip not well visualized but probably in brachiocephalic vein. Frederick Rizzo MD Chest CT 01/06/18 Signed Impressions: Service Date/Time: January 18:51 - CONCLUSION: 1. No abscess identified outside of the thoracic spinal canal. Small bilateral pleural effusions. NG coiled in the stomach. Frederick Rizzo MD Cervical Spine MRI 01/06/18 Signed Impressions: Service Date/Time: January 14:23 - CONCLUSION: 1. Severe degenerative changes with severe spinal stenosis at C2-3, C3-4, C4-5 and C5-6. There is moderate spinal stenosis at C6-7 and C7-T1. Overall assessment of the cord is limited due to motion artifact. I do not definitively see edema within the cord however there is significant flattening of the cord at multiple levels. 2. No significant abnormal contrast enhancement identified. Leonardo Sorenson MD Brain MRI 01/06/18 Signed Impressions: Service Date/Time: January 14:23 - CONCLUSION: 1. Negative MRI of the brain with and without contrast. Jagjit Wilkinson MD Abdomen/Pelvis CT 01/06/18 0000 Signed Impressions: Service Date/Time: January 18:51 - CONCLUSION: 1. Multiple laminectomy defects in the lumbar spine with some locules of air both within the canal and within the L2 vertebral body which could be related to infection. Cannot exclude abscess formation within the canal. 2. 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 3. Diffuse ileus. 4. Small effusions and mild anasarca. 5. Reyna catheter in decompressed bladder. NG coiled in stomach. Frederick Rizzo MD Lumbar Spine MRI 01/05/18 0000 Signed Impressions: Service Date/Time: Friday, January 05, 2018 14:27 - CONCLUSION: 1. Extensive postsurgical changes with apparent left decompressive laminectomy leftward from L1 to through L4-5. 2. There is a well-circumscribed 1.4 cm cystic structure midline just posterior to the thecal sac at L4-5 which was not clearly present previously. May represent a small seroma which could result in some degree of central spinal stenosis despite the left laminectomy. 3. In addition, severe narrowing of the right L4-5 neural foramen with almost certain compromise of the right L4 nerve root. Emir Bowles MD Objective Remarks GENERAL: 67-year-old male currently in bed SKIN: Warm and diaphoretic with profuse sweating. HEAD: Normocephalic. EYES: No scleral icterus. No injection or drainage. NECK: Supple, trachea midline. No JVD or lymphadenopathy. CARDIOVASCULAR: S1-S2 with regular rate and rhythm, tachycardic, no murmur rubs or gallops appreciated. RESPIRATORY: Breath sounds equal bilaterally. No accessory muscle use. GASTROINTESTINAL: Abdomen soft, non-tender, nondistended. MUSCULOSKELETAL: No significant peripheral edema BACK: Incision from laminectomy clean dry and intact NEURO EXAM: Cranial nerves II through XII are intact, strength is 5/5 in bilateral upper extremities. Strength is 1/5 in bilateral lower extremities. Negative patellar DTRs bilaterally. Sensation to light touch not pinprick bilateral lower extremities below the knees Urinary Catheter: Yes Procedures L1 through L5 decompressive laminectomy. A/P Problem List: (1) Spinal cord compression ICD Code: G95.20 - Unspecified cord compression Plan: The patient was initially admitted to intensive care unit and managed by the employee relations administrator. The patient is postop day 1 for bilateral L1 through L5 decompressive laminectomy, medial facetectomy or spinal canal the compression. C-spine revealed cord compression C2 through C4 and C4 through C6. T-spine 2-3/ 5 6 and lumbar spine T throughout L2 with essentially ablation of the cord from L2 through L5. Status post emergent surgery per Dr. Chakraborty 01/03 Continue management as per neurosurgery. The patient has been on IV morphine for pain control. I will start the patient on oral opiates and keep the IV morphine for breakthrough pain only. Continue to monitor neuro checks. 01/06 Agree with MRI C spine and brain to r/o developing abscess causing possible cord compression at a higher level contributing to ileus and ascending progressive weakness. (2) Lumbar canal stenosis ICD Code: M48.061 - Spinal stenosis, lumbar region without neurogenic claudication Plan: Management as above. (3) Sepsis ICD Code: A41.9 - Sepsis, unspecified organism Plan: Severe sepsis present on admission -patient with leukocytosis, tachycardia with the source being bacteremia and epidural abscess. Sepsis likely secondary to E. coli bacteremia and E. coli UTI with recent prostate biopsy. Patient also has infective discitis likely secondary to E. coli bacteremia. Patient has a recent history of prostate biopsy at risk factor for E. coli bacteremia. The patient initially started on IV vancomycin and IV cefepime. ID consulted. Vancomycin discontinued on 01/04, the patient currently on IV cefepime. 01/06 CXR shows a new left middle lobe infiltrate likely due to aspiration. Antibiotics per ID. Continue IV fluids. (4) UTI (urinary tract infection) ICD Code: N39.0 - Urinary tract infection, site not specified Plan: Complicated UTI related to likely prostate biopsy. Urine culture positive for E. coli. ID consulted. Continue antibiotics as per ID. (5) Acute hypoxemic respiratory failure ICD Code: J96.01 - Acute respiratory failure with hypoxia (6) Thrombocytopenia ICD Code: D69.6 - Thrombocytopenia, unspecified Plan: Platelets on admissions 18 K. Status post infusion of platelets. Likely secondary to sepsis. Keep platelets more than 50 K due to recent back surgery. HIV and hepatitis panel negative. (7) VALENCIA (acute kidney injury) ICD Code: N17.9 - Acute kidney failure, unspecified Plan: Likely secondary to prerenal azotemia due to sepsis and dehydration. Creatinine on admission 2.23, treated with IV fluids and trending down. Creatinine down to 1.07 which is possibly close to the patient's baseline. Continue to monitor BUN and creatinine, strict I's and O's, avoid nephrotoxins. (8) Bacteremia ICD Code: R78.81 - Bacteremia Plan: ID following. Continue antibiotics as per ID. Sure blood cultures on 01/02 grew E. coli. Wound culture grew E. coli as well. Blood cultures on 01/03 still positive with gram-negative rods. Blood cultures obtained on 01/05 still pending. (9) Osteoporosis ICD Code: M81.0 - Age-related osteoporosis without current pathological fracture Plan: Hold meloxicam sample 5 mg p.o. twice a day. PT/OT evaluate and treat, however hold PT/OT today given patient worsening clinical condition. (10) Altered mental status ICD Code: R41.82 - Altered mental status, unspecified Plan: The patient is having transient episodes of altered mental status. Agree with C-spine and brain MRI recommended by infectious disease. We will check EEG to rule out seizure episodes. (11) Acute ascending myelitis ICD Code: G04.91 - Myelitis, unspecified Plan: The patient seems to be having increased upper extremity weakness. At this point it is unclear if this is due to another spinal abscess causing cord compression at the level of the cervical spine. C-spine and brain MRI ordered and pending. Should respiratory function be compromised then the patient might require mechanical ventilation and intubation. (12) Ileus ICD Code: K56.7 - Ileus, unspecified Status: Acute Plan: Patient has abdominal distention, states is not passing gas. Abdominal x -ray shows ileus. GI has been consulted. We will place NG tube Soap enemas unreleased are prescribed by GI. Assessment and Plan DVT prophylaxis: SCDs. Discharge Planning Transfer the patient back to the intensive care unit for close follow-up. Problem Qualifiers (1) Lumbar canal stenosis: Qualified Codes: M48.061 - Spinal stenosis, lumbar region without neurogenic claudication (2) UTI (urinary tract infection): Qualified Codes: N30.00 - Acute cystitis without hematuria (3) Osteoporosis: Qualified Codes: M81.0 - Age-related osteoporosis without current pathological fracture (4) Altered mental status: Qualified Codes: R40.4 - Transient alteration of awareness aMrk Aguilar MD Jan 06, 2018 15:46
--- NOTE | 2018-01-06 15:50 | RADRPT ---
EXAM DATE/TIME: 01/06/2018 14:23 [facility] COMPARISON: No previous studies available for comparison. INDICATIONS : Meningitis. CONTRAST: 18 cc Omniscan (gadodiamide) IV MEDICAL HISTORY : Hypothyroidism. Benign prostatic hyperplasia, (BPH) SURGICAL HISTORY : Cord decompression, kidney surgery and prostate biopsy. ENCOUNTER: Subsequent ACUITY: 2 day PAIN SCORE: 0/10 LOCATION: Head. TECHNIQUE: Multiplanar, multisequence MRI of the brain was performed both prior to and following the administrat ion of paramagnetic contrast. FINDINGS: CEREBRUM: The ventricles are normal for age. No evidence of midline shift, mass lesion, hemorrhage or acute in farction. No extraaxial fluid collections are seen. The pituitary gland and suprasellar cistern are normal in configuration. WHITE MATTER: No significant signal abnormalities are seen in the white matter. POSTERIOR FOSSA: The cerebellum and brainstem are intact. The 4th ventricle is midline. The cerebellopontine angle is unremarkable. The cerebellar tonsils are normal in position. DIFFUSION IMAGING: No focal areas of restricted diffusion are seen. No evidence of acute infarction. EXTRACRANIAL: The visualized portions of the orbits and paranasal sinuses are unremarkable. POST-CONTRAST: No abnormal areas of parenchymal or dural enhancement. No evidence of blood-brain barrier breakdown. CONCLUSION: 1. Negative MRI of the brain with and without contrast. Jagjit Wilkinson MD on January 06, 2018 at 15:36 Board Certified Radiologist. This report was verified electronically.
--- NOTE | 2018-01-06 15:57 | RADRPT ---
EXAM DATE/TIME: 01/06/2018 14:23 [facility] COMPARISON: MRI CERVICAL SPINE W/O CONTRAST, January 03, 2018, 0:38. MRI BRAIN W & W/O CONTRAST, January 06, 2018, 14:23. MRI LUMBAR SPINE W & W/O CONTRAST, January 05, 2018, 14:27. INDICATIONS : Meningitis. CONTRAST: 18 cc Omniscan (gadodiamide) IV MEDICAL HISTORY : Benign prostatic hyperplasia, (BPH) Hypothyroidism. SURGICAL HISTORY : Cord decompression, prostate biopsy and kidney. ENCOUNTER: Subsequent ACUITY: 2 day PAIN SCORE: 0/10 LOCATION: Back. TECHNIQUE: Multiplanar, multisequence MRI examination of the cervical spine was performed. FINDINGS: Sagittal T1 and T2-weighted imaging is provided. The sagittal imaging is somewhat degraded by motion artifact. No abnormal marrow signal is seen within the vertebral bodies. No abnormal signal is seen within the cord. No significant abnormal contrast enhancement is identified. The exam does demonstrate severe degenerative changes throughout the cervical spine. C2-C3: There is a severely degenerated disc with broad based disc bulge and diffuse osteophytic ridging. The re is facet arthritis bilaterally. These changes combined and result in a severe spinal stenosis. The re is flattening of the ventral aspect of the cord. There is significant narrowing of the foramina bi laterally. C3-C4: There is a degenerated disc with broad-based disc bulge and diffuse osteophytic ridging. This effaces the ventral thecal sac. There is flattening of the ventral aspect of the cord. There is uncovertebra l osteophyte and facet arthritis which results in foraminal narrowing bilaterally. Overall, findings are consistent with a moderate to severe spinal stenosis and bilateral foraminal narrowing. C4-C5: There is a degenerated disc with diffuse osteopenic ridging. There is broad-based disc bulge and face t arthritis bilaterally. These findings combined and result in a severe spinal stenosis and bilateral foraminal narrowing. C5-C6: There is a degenerated disc with diffuse osteophytic ridging and broad-based disc bulge. This effaces the ventral thecal sac. There is facet arthritis bilaterally. Findings are consistent with a severe spinal stenosis and bilateral foraminal narrowing. C6-C7: There is a degenerated disc. There is osteophytic ridging from the endplates. There is facet arthriti s bilaterally. There is moderate narrowing of the thecal sac. There is bony narrowing of the foramina bilaterally. C7-T1: There is a degenerated disc with disc bulge. There is facet arthritis bilaterally. There is degenerat obey facet hypertrophy. These changes combined and result in a moderate degree of spinal stenosis and bilateral foraminal narrowing. CONCLUSION: 1. Severe degenerative changes with severe spinal stenosis at C2-3, C3-4, C4-5 and C5-6. There is mod erate spinal stenosis at C6-7 and C7-T1. Overall assessment of the cord is limited due to motion al fact. I do not definitively see edema within the cord however there is significant flattening of the cord at multiple levels. 2. No significant abnormal contrast enhancement identified. Leonardo Sorenson MD on January 06, 2018 at 15:46 Board Certified Radiologist. This report was verified electronically.
--- NOTE | 2018-01-06 16:03 | RADRPT ---
EXAM DATE/TIME: 01/06/2018 14:23 [facility] COMPARISON: No previous studies available for comparison. INDICATIONS : Meningitis. CONTRAST: 18 cc Omniscan (gadodiamide) IV MEDICAL HISTORY : Benign prostatic hyperplasia, (BPH) Hypothyroidism. SURGICAL HISTORY : Kidney surgery, prostate biopsy and cord decompression. ENCOUNTER: Subsequent ACUITY: 2 day PAIN SCORE: 0/10 LOCATION: Back. TECHNIQUE: Multiplanar multisequence MRI of the thoracic spine was performed. FINDINGS: VERTEBRA: There is normal alignment of the vertebral bodies of the thoracic spine and normal signal in the ben ow the thoracic vertebral bodies. There is multilevel spinal stenosis, severe, described each level below. In the soft tissues of the posterior lower back, there is parasagittal thickening in T2 prolo ngation measuring up to 1.8 cm in thickness superficial to the muscles and spinous process, right par asagittal, at the T11 and T12 levels. No significant abnormal enhancement seen within this fluid col lection. There is a posterior epidural impression upon the thecal sac at the T10-11 level characteri zed by T2 prolongation and no suppression on fat suppressed images. There is no abnormal enhancement seen on the postcontrast images. T1-T2: Normal. T2-T3: Severe spinal stenosis due to a combination of protrusion of the disc, facet joint hypertrophy. Ther e is concentric narrowing of the spinal canal measuring 4 mm in narrowest point. There is probable i mpression upon the thoracic cord in the right parasagittal position. T3-T4: Broad-based protrusion of the disc flattens the ventral margin of the thecal sac and does cause kaylie ening of the thoracic cord. There is some CSF seen posterior to the thoracic cord. T4-T5: Right parasagittal disc protrusion causes significant impression upon the right thoracic cord with th e cord narrowed to less than 2 mm in AP dimension. T5-T6: Broad-based protrusion of the disc causes significant spinal stenosis diffusely with an AP dimension of the spinal canal measuring 4 mm. There is flattening of the thoracic cord. There is also bilater al facet joint hypertrophy creating a dorsal lateral impression upon the cord. T6-T7: There is a small central protrusion of the disc which indents on the thecal sac. No definite cord co mpression however.. T7-T8: The thecal sac has a normal diameter. No evidence of disc bulge or protrusion. T8-T9: Moderate-sized central protrusion of the disc causes focal indentation on the thecal sac and probably causes central impression on the thoracic cord. Thoracic cord AP dimension is narrowed to 4 mm. No lateral extension. The minimal right paracentral bulging of the disc flattens the ventral margin of the thecal sac but does not cause cord compression. T9-T10: There is evidence of cord compression predominately to 2 epidural soft tissue density which has T2 pr olongation, located in the midline, and causes focal impression; this abnormality measures 6 mm in AP dimension. The AP dimension of the thoracic cord is narrowed to 5 mm. T10-T11: The thecal sac has a normal diameter. No evidence of disc bulge or protrusion. T11-T12: The thecal sac has a normal diameter. No evidence of disc bulge or protrusion. T12-L1: The thecal sac has a normal diameter. No evidence of disc bulge or protrusion. CONCLUSION: 1. Multilevel cord compression is due predominantly to multiple disc protrusions. Significant cord c ompression is present at least 6 levels. There is also cord compression posteriorly at the T10 level due to a fluid collection in the midline which measures 6 mm in AP dimension. 2. There is also focal subcutaneous right parasagittal fluid collection at T10 and T11 which does not demonstrate peripheral contrast enhancement. An abscess is suspected. Jagjit Wilkinson MD on January 06, 2018 at 15:48 Board Certified Radiologist. This report was verified electronically.
[2018-01-06] MEDS ORDERED: METHYLNALTREXONE BROMIDE 12 MG/0.6 ML VIAL SQ ONE (16:20)
[2018-01-06] MEDS: VANCOMYCIN 1,500 MG/NS 500 ML IV SCH ×2 (17:11)
[2018-01-06] MEDS ORDERED: IOHEXOL 350 MG/ML 10 ML VIAL (for RAD DIAG) IVCONTRAST ONE (18:55)
--- NOTE | 2018-01-06 19:15 | RADRPT ---
EXAM DATE/TIME: 01/06/2018 18:51 [facility] COMPARISON: No previous studies available for comparison. INDICATIONS : Pain, evaluate extension of rapidly ascending spinal abscess. IV CONTRAST: 100 cc Omnipaque 350 (iohexol) IV ; Cumulative dose for multiple exams. ORAL CONTRAST: No oral contrast ingested. RADIATION DOSE: 20.06 CTDIvol (mGy) ; Combined studies - Thorax/Abdomen/Pelvis MEDICAL HISTORY : Benign prostatic hyperplasia, (BPH). Cord compression. SURGICAL HISTORY : Prostate biopsy. Kidney biopsy. ENCOUNTER: Initial ACUITY: 2 days PAIN SCALE: 7/10 LOCATION: abdomen TECHNIQUE: Volumetric scanning of the abdomen and pelvis was performed. Using automated exposure control and ad justment of the mA and/or kV according to patient size, radiation dose was kept as low as reasonably achievable to obtain optimal diagnostic quality images. DICOM format image data is available electro nically for review and comparison. FINDINGS: Lung bases demonstrate small pleural effusions and dependent atelectasis. NG is coiled in the stomach . No acute findings in the liver, spleen, adrenals or pancreas. There is a horseshoe kidney with nonobs tructing calculi in the lower pole left kidney measuring up to about 8 mm and 5 mm in diameter. Also bilateral renal cysts. There is a diffuse ileus. Mild anasarca. There are some gaseous lucencies in the L2 vertebral body which could indicate some avascular necrosi s or infection. There is a laminectomy defect at L2 and L3 and L4 with some locules of air within the spinal canal at L1, L2 and L3. Cannot exclude a spinal abscess. See recent MRI report. CONCLUSION: 1. Multiple laminectomy defects in the lumbar spine with some locules of air both within the canal an d within the L2 vertebral body which could be related to infection. Cannot exclude abscess formation within the canal. 2. 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 3. Diffuse ileus. 4. Small effusions and mild anasarca. 5. Reyna catheter in decompressed bladder. NG coiled in stomach. Frederick Rizzo MD on January 06, 2018 at 19:04 Board Certified Radiologist. This report was verified electronically.
--- NOTE | 2018-01-06 19:19 | RADRPT ---
EXAM DATE/TIME: 01/06/2018 18:51 [facility] COMPARISON: No previous studies available for comparison. INDICATIONS : Pain, evaluate extension of rapidly ascending spinal abscess. IV CONTRAST: 100 cc Omnipaque 350 (iohexol) IV ; Cumulative dose for multiple exams. RADIATION DOSE: 20.06 CTDIvol (mGy) ; Combined studies - Thorax/Abdomen/Pelvis MEDICAL HISTORY : Benign prostatic hyperplasia, (BPH) Hypothyroidism. Cord compression. SURGICAL HISTORY : Kidney biopsy. Prostate biopsy. ENCOUNTER: Initial ACUITY: 2 days PAIN SCALE: 8/10 LOCATION: chest TECHNIQUE: Volumetric scanning of the chest was performed. Using automated exposure control and adjustment of t he mA and/or kV according to patient size, radiation dose was kept as low as reasonably achievable to obtain optimal diagnostic quality images. DICOM format image data is available electronically for review and comparison. Follow-up recommendations for detected pulmonary nodules are based at a minimum on nodule size and pa tient risk factors according to Fleischner Society Guidelines. FINDINGS: There are small bilateral pleural effusions and dependent atelectasis in lungs. There is nasogastric tube seen entering the stomach. No abscess identified outside of the spinal tylor l. There is no adenopathy. NG tube coiled in the stomach. CONCLUSION: 1. No abscess identified outside of the thoracic spinal canal. Small bilateral pleural effusions. NG coiled in the stomach. Frederick Rizzo MD on January 06, 2018 at 19:15 Board Certified Radiologist. This report was verified electronically.
[2018-01-06] MEDS ORDERED: MIDAZOLAM HCL 5 MG/5 ML VIAL IV PUSH ONE (19:30)
[2018-01-06] MEDS ORDERED: ROCURONIUM INJ 100 MG/10 ML VIAL IV ONE (19:30)
[2018-01-06] MEDS ORDERED: TERBUTALINE INJ 1 MG/ML AMP SQ PRN (19:30)
[2018-01-06] MEDS ORDERED: SODIUM CHLOR 0.9% 250 ML INJ 250 ML IV ONE (19:30)
[2018-01-06] MEDS: HYDROCORTISONE SOD SUCCINATE 100 MG VIAL IV PUSH SCH (19:38)
[2018-01-06] MEDS: PROPOFOL 1000 MG/100 ML INJ 100 ML IV PRN (19:42)
[2018-01-06] MEDS: fentaNYL DRIP 250 ML IV PRN (19:42)
--- NOTE | 2018-01-06 20:42 | HHI.CCPN ---
Subjective Remarks/Hospital Course 67-year-old male who underwent a prostate biopsy one week ago, on 12/27/17. On the evening of 12/29/17 he developed fever and chills, low back pain, and lower extremity numbness and paresthesias and muscle spasm. He was seen by his primary care physician and was given medication including muscle relaxant. The symptoms persisted and he returned to his primary care physician on Wednesday, and was given additional medications including Cipro. He awoke on 01/02/2018 with increased lower extremity weakness and numbness, and fell in the shower in the morning, after which he was unable to ambulate or lift his legs off the bed, and continued to experience pain in the lower back. He went to the emergency room at [facility], and was given additional medication injections. He could not lift his legs off the bed or ambulate in the emergency room, and was taken out to his car and lifted into the car and sent home again. He fell in the driveway again trying to get back into the house. He apparently did not urinate for the entire day. He has no complaint of pain which is numbness paresthesias in the upper extremities. No numbness or paresthesias over the chest or abdomen or pelvic region. The MRI of thoracic spine shows severe canal stenosis at T2-3 and T5-6 level with cord compressions, complete or near complete canal obliteration at L2 -3 L3-4 and severe multilevel canal stenosis of the C-spine. The patient is emergently taken to operating room by Dr. Chakraborty. Subjective 01/04: Extubated late afternoon yesterday without any complications. Some sensation bilateral lower extremities. Strength 4-5 bilateral upper extremities. Afebrile. Hemodynamically stable. 01/06: RECONSULT NOTE: reconsulted for respiratory distress. in brief, 67yM with recent prostate biopsy complicated by e. coli bacteremia and lumbar epidural abscess. he was stable and sent to the floor where he developed respiratory distress, fever, tachycardia, tachypnea, diaphoresis. on my exam, patient is in distress, appears toxic. repeat MRI spine demonstrates fluid collections and evidence of spinal compression in cervical, thoracic, and lumbar spinal areas concerning for rapidly ascending abscess with neurologic compromise. also, patient was weak in b/l LEs overnight and now is nearly a complete quad, with only 3/5 distal upper extremity strength left and 1/5 proximal upper extremity strength. Objective Vital Signs Date Time Temp Pulse Resp B/P (MAP) Pulse Ox O2 Delivery O2 Flow Rate FiO2 01/06/18 18:06 95 Venturi Mask 6.00 50 01/06/18 18:00 108 01/06/18 16:00 98.5 25 155/82 (106) Intake and Output 01/06/18 01/06/18 01/07/18 08:00 16:00 00:00 Intake Total 1740 ml Output Total 1500 ml 1100 ml Balance -1500 ml 640 ml Result Diagram: 01/06/18 0554 01/06/18 1112 Other Results Laboratory Tests Test 01/06/18 11:56 01/06/18 19:42 Blood Gas Puncture Site RT RADIAL ART LINE Blood Gas Patient Temperature 98.6 98.6 Blood Gas HCO3 22 mmol/L (22-26) 22 mmol/L (22-26) Blood Gas Base Excess -1.2 mmol/L (-2-2) -2.4 mmol/L (-2-2) Blood Gas Oxygen Saturation 89 % (90-100) 98 % (90-100) Arterial Blood pH 7.45 (7.380-7.420) 7.36 (7.380-7.420) Arterial Blood Partial Pressure CO2 33 mmHg (38-42) 41 mmHg (38-42) Arterial Blood Partial Pressure O2 59 mmHg (61-120) 359 mmHg (61-120) Arterial Blood Oxygen Content 11.1 Vol % (12.0-20.0) 12.2 Vol % (12.0-20.0) Arterial Blood Carboxyhemoglobin 1.4 % (0-4) 1.0 % (0-4) Arterial Blood Methemoglobin 0.9 % (0-2) 1.0 % (0-2) Blood Gas Hemoglobin 8.9 G/DL (12.0-16.0) 8.2 G/DL (12.0-16.0) Oxygen Delivery Device NASAL CANNULA VENTILATOR Blood Gas Liter Flow 4 L/M Blood Gas Ventilator Setting [facility]/AC17/500/ Blood Gas Inspired Oxygen 100 % Imaging Last Impressions Thoracic Spine MRI 01/03/18 0000 Signed Impressions: Service Date/Time: Wednesday, January 03, 2018 00:38 - CONCLUSION: Multilevel disc abnormalities. Severe canal stenosis at T2-3 and T5-6 with cord compression and mild signal changes in the cord at T2-3 and moderate signal changes within the cord at T5-6. Less severe changes at L2 additional levels as described. Harley Herrera MD Lumbar Spine MRI 01/03/18 0000 Signed Impressions: Service Date/Time: Wednesday, January 03, 2018 00:38 - CONCLUSION: Complete or near complete canal obliteration at L2-3, L3-4 and L4-5 with less severe compromise at L1-2 and T12-L1. Harley Herrera MD Cervical Spine MRI 01/03/18 0000 Signed Impressions: Service Date/Time: Wednesday, January 03, 2018 00:38 - CONCLUSION: Severe multilevel canal stenosis. Findings appear to be most critical at C4-5 and C5-6 where AP canal dimension is reduced to 4-5 mm, however also quite severe at C2-3 and C3-4. Harley Herrera MD Chest X-Ray 01/02/18 1762 Signed Impressions: Service Date/Time: Tuesday, January 02, 2018 23:11 - CONCLUSION: Mild basilar atelectasis or scarring. Harley Herrera MD Procedures L1 through L5 decompressive laminectomy. Objective Remarks GENERAL: 67-year-old male lying in bed, in acute distress, toxic appearing. SKIN: diaphoretic. HEAD: Normocephalic. EYES: No scleral icterus. No injection or drainage. NECK: Supple, trachea midline. No JVD. CARDIOVASCULAR: tachycardic rate, regular rhythm. sinus. RESPIRATORY: equal chest rise. NRB in place. tachypneic. in distress. labored. GASTROINTESTINAL: Abdomen soft, mildly distended. nontender. no guarding. MUSCULOSKELETAL: No significant peripheral edema BACK: Incision from laminectomy clean dry and intact NEURO EXAM: Cranial nerves II through XII are intact, strength is 1/5 proximal uppers b/l, 3/5 distal upper extremities. 0/5 lower extremities. A/P Assessment and Plan Assessment: 67-year-old male now postop day 3 status post lumbar laminectomy and decompression for epidural abscess who presents now with rapidly progressive spinal abscess with rapidly worsening myelopathy and neurologic function. It appears that the patient remains bacteremic and is very toxic in severe sepsis leading to septic shock and decompensating manner. Dr. Chakraborty, Dr. Charles, and myself had multiple conversations. This patient is very critically ill and is very likely not survive this illness. However, his only chance of meaningful recovery would be emergent decompression and washout. After discussion with the patient, and Dr. Chakraborty, we all agreed to proceed. I intubated the patient, see separate procedure notes for details, and placed arterial line and central line. We will continue broad-spectrum antibiotics and plan to have large volume blood product resuscitation available. Neuro/Psych: Postop day #3 Bilateral L1-2, L2-3, L3 4, L4 5 decompressive semi-laminectomy, medial facetectomy for spinal canal decompression. Depression/anxiety Ascending myelopathy Spinal abscess C-spine revealed cord compression C2 through C4 and C4 through C6. T-spine 2-3/ 5 6 and lumbar spine T throughout L2 with essentially ablation of the cord from L2 through L5. Status post emergent surgery per Dr. Chakraborty 4/2 Acetaminophen 650 mg p.o. every 6 hours as needed pain 1-5/fever Morphine sulfate 2 mg IV every 8 as needed pain 6 or 10 Neurochecks Propofol and fentanyl for goal RASS -2 all intubated Plan for emergent decompression of the C-spine and T-spine with washout. Likely going to be a staged procedure because he may not hemodynamically tolerate a entire spine decompression. CV: Dyslipidemia Severe sepsis Early septic shock Maintenance fluids at 125 cc/hr Not requiring vasopressors and/or antihypertensives Currently on atorvastatin 40 mg p.o. daily. Hospital substitution for rosuvastatin 20 mg p.o. daily Given rapidly declining status, we will plan to have norepinephrine and vasopressin available Given duration and severity of critical illness, will likely need stress dose steroids. Will start empirically with hydrocortisone 100 mg IV every 8 hours. Resp: Acute hypoxic hypercarbic respiratory failure Vent bundle Nebs Wean FiO2 for goal SPO2 greater than 90% No weaning of mechanical ventilation until shock improves and source control is contained GI: Postoperative ileus N.p.o. Place gastric tube to suction Likely ileus is multifactorial including severe sepsis and postoperative pain, likely compounded by myelopathy and there could be a neurogenic component to his ileus Famotidine for GI prophylaxis Docusate sodium/senna 1 tablet twice daily for bowel regimen GI consulted : BPH Maintain Reyna catheter Currently on tamsulosin 0.4 mg p.o. daily Recent prostate biopsy. Pathology pending Endo: Sliding scale insulin Accu-Cheks to maintain euglycemia/low regimen Renal: Acute kidney injury- improving Avoid nephrotoxic drugs Monitor urine output Accurate I's and O's Heme: Thrombocytopenia likely secondary to sepsis Anemia secondary to acute blood loss Haptoglobin high. LDH normal. Peripheral smear no signs of schistocytes total bilirubin normal. Status post 2 pack platelets 4/3. Followed by hematology 4 units packed red cells, 4 units FFP, 2 units platelets on-call the OR for emergent operation ID: E. coli bacteremia E. coli spinal abscess ID consulted Broad-spectrum metabolic coverage Emergent decompression + washout FEN Replace electrolytes as clinically indicated MSK: Osteoporosis Holding meloxicam 7.5 mg p.o. twice daily. PT/OT evaluate and treat Access -4/5 left subclavian 9 Spanish introducer sheath 4/5 left radial arterial line Reyna Prophylaxis -GI -famotidine -DVT -SCD/holding pharmacologic prophylaxis until acute neurosurgery/severe thrombocytopenia This patient remains critically ill with one or more organ systems which are or may become a threat to life. I have spent in excess of 107 minutes discontinuously in the care and management of this patient. This time is exclusive of procedures, and includes, but is not limited to, evaluation of the patient, review of the medical record, discussions with family, consultants, nursing staff, or respiratory therapy, and documentation in the medical record. Esau Feldman MD Jan 06, 2018 20:42
--- NOTE | 2018-01-06 20:45 | PD.PROCEDR ---
Procedure Note Procedure Endotracheal Intubation Diagnosis: E. coli spinal abscess Indications: Rapidly ascending motor neuropathy compromising respiratory function with subsequent acute hypoxic and hypercarbic respiratory failure. Consent: I verbally consented the patient for intubation as his respiratory status was worsening and he was going for emergent decompression of the spine. Specifically, I consented the patient for the heightened risk of temporary or permanent damage to the spinal cord leading to neurologic damage or paralysis secondary to manipulation of the airway or the neck. Patient expresses understanding of the risk of temporary or permanent nerve damage or paralysis and agrees to proceed. Anesthesia: Versed 10 mg IV, rocuronium 100 mg IV Description of the Procedure: Throughout the entire procedure, a separate provider held in-line stabilization to prevent neck mobility. The patient was positioned in a neutral position. Pre-oxygenation was performed using a nonrebreather mask. Anesthesia was induced via rapid sequence. A videoscope was used electively to minimize area manipulation and neck manipulation for laryngoscopy and a Grade I view was obtained. A 8.5 cuffed endotracheal tube was inserted atraumatically through the vocal cords. Confirmation of correct endotracheal tube placement was made by equal and bilateral breath sounds and colorimetric CO2 detection. The endotracheal tube was secured at 23 cm at the teeth. There were no immediate complications noted. The patient remained hemodynamically stable throughout the procedure. At the conclusion of the procedure, the neck remains in neutral position. A chest x-ray has been ordered. I personally performed the procedure. Esau Feldman MD Jan 06, 2018 20:45
[2018-01-06] MEDS: TAMSULOSIN HCL 0.4 MG CAP PO SCH (20:46)
--- NOTE | 2018-01-06 20:46 | PD.PROCEDR ---
Procedure Note Procedure Procedure: Arterial Line Placement Left radial arterial line Diagnosis: Spinal abscess, septic shock Indications: Need for beat to beat hemodynamic monitoring Consent: Emergent Description of the Procedure: The left wrist was prepped and draped sterilely. 1% lidocaine was used for local anesthesia. The pulse was located and a needle was advanced into the artery. A 20 gauge, 12 cm catheter was advanced into the artery using a modified Seldinger technique. The catheter was sutured to the skin and a sterile dressing was applied. The catheter was connected to a pressure transducer and an arterial waveform was noted. There were no immediate complications noted. There was minimal EBL. I personally performed the procedure. Esau Feldman MD Jan 06, 2018 20:46
--- NOTE | 2018-01-06 20:47 | PD.PROCEDR ---
Procedure Note Procedure Central Line Procedure Note Left subclavian 9 Pakistani double-lumen introducer sheath Diagnosis: Spinal abscess, septic shock Indications: Need for highly potent vasoactive substances Consent: Emergent Anesthesia: Versed IV Description of the Procedure: The patient was placed in the supine, mild- Trendelenburg position. The area was prepped and draped sterilely. A 19g needle was inserted under negative pressure aspiration and dark venous blood was obtained. A guidewire was inserted easily without resistance. A small incision was made using a #11 blade. Using a modified Seldinger technique, the dilator and 9 Pakistani, 10 cm catheter were advanced over the guidewire without resistance. All ports were aspirated and flushed, and had brisk blood return. The line was secured at the skin using 2-0 silk interrupted sutures. A Biopatch and Transparent sterile dressing were applied. There were no immediate complications noted. There was minimal EBL. The patient tolerated the procedure well. Ultrasound guidance was not used for this procedure. A StatLock device was not used because the device would not fit the configuration of the introducer sheath. Suture used as an alternative securement device. A Chest x-ray has been ordered. I personally performed the procedure. Esau Feldman MD Jan 06, 2018 20:47
--- NOTE | 2018-01-06 20:49 | RADRPT ---
EXAM DATE/TIME: 01/06/2018 20:20 [facility] COMPARISON: CHEST SINGLE AP, January 06, 2018, 12:51. INDICATIONS : ET tube and central line placement. MEDICAL HISTORY : Benign prostatic hyperplasia, (BPH). Cord compression. SURGICAL HISTORY : Prostate biopsy. Kidney biopsy. ENCOUNTER: Subsequent ACUITY: 1 day PAIN SCORE: Non-responsive. LOCATION: Bilateral chest FINDINGS: Endotracheal tube tip is in the proximal right mainstem bronchus. NG tube in the stomach. Bilateral b jose air space disease. Left central line tip probably in the brachiocephalic vein. No significant ef fusion. No pneumothorax. CONCLUSION: 1. Endotracheal tube tip in proximal right mainstem bronchus. This should be withdrawn about 3 cm. Na sogastric tube in stomach. 2. Left central line tip not well visualized but probably in brachiocephalic vein. Frederick Rizzo MD on January 06, 2018 at 20:45 Board Certified Radiologist. This report was verified electronically.
[2018-01-06] MEDS ORDERED: DIAZEPAM 5 MG TAB PO PRN (21:00)
[2018-01-06] MEDS: METOCLOPRAMIDE HCL 10 MG/2 ML VIAL IM SCH (21:01)
[2018-01-06] MEDS ORDERED: LIDOCAINE 1%/EPINEPHrine 1:100,000 SOLN 30 ML VIAL ONE ×2 (21:02→22:57)
[2018-01-06] MEDS ORDERED: THROMBIN (TOPICAL) 5,000 UNIT VIAL ONE (21:02)
[2018-01-06] MEDS ORDERED: GENTAMICIN SULFATE 80 MG/2 ML VIAL ONE (21:03)
[2018-01-06] MEDS ORDERED: BUPIVACAINE HCL PF 0.25% 30 ML VIAL ONE (21:03)
[2018-01-06] MEDS ORDERED: GELFOAM SIZE 100 ONE (21:03)
[2018-01-06] MEDS ORDERED: SUGAMMADEX SODIUM 200 MG/2 ML VIAL IV PUSH ONE (21:59)
[2018-01-06 22:03] LABS: MEAN CELL VOLUME 90.6 FL (80.0-100.0); MEAN CORPUSCULAR HEMOGLOBIN 31.5 PG (27.0-34.0); MEAN CORPUSCULAR HGB CONC 34.8 % (32.0-36.0); MEAN PLATELET VOLUME 9.5 FL (7.0-11.0); PLATELET COUNT 81 TH/MM3 (150-450); RED BLOOD COUNT 2.09 MIL/MM3 (4.50-5.90); RED CELL DISTRIBUTION WIDTH 13.8 % (11.6-17.2); WHITE BLOOD COUNT 15.8 TH/MM3 (4.0-11.0)
[2018-01-06 22:10] LABS: HEMOGLOBIN 6.6 GM/DL (13.0-17.0)
[2018-01-06] MEDS ORDERED: PROPOFOL 500 MG/50 ML ONE (22:18)
[2018-01-06 22:22] LABS: INTERNATIONAL NORMALIZED RATIO 1.2 RATIO; PROTHROMBIN TIME - PATIENT 12.6 SEC (9.8-11.6)
[2018-01-06 22:26] LABS: BICARBONATE 24.2 MEQ/L (21.0-32.0); CALCIUM 6.8 MG/DL (8.5-10.1); CREATININE 0.82 MG/DL (0.60-1.30)
[2018-01-06 22:26] LABS: MEAN CELL VOLUME 90.9 FL (80.0-100.0); MEAN CORPUSCULAR HEMOGLOBIN 31.8 PG (27.0-34.0); MEAN PLATELET VOLUME 9.7 FL (7.0-11.0); PLATELET COUNT 93 TH/MM3 (150-450); RED BLOOD COUNT 2.14 MIL/MM3 (4.50-5.90); RED CELL DISTRIBUTION WIDTH 13.6 % (11.6-17.2); WHITE BLOOD COUNT 18.3 TH/MM3 (4.0-11.0)
[2018-01-06 22:28] LABS: HEMATOCRIT 19.4 % (39.0-51.0); HEMOGLOBIN 6.8 GM/DL (13.0-17.0)
[2018-01-06 23:32] LABS: CALCIUM-PROTEIN CORRECTED 7.6 MG/DL (8.5-10.1); TOTAL PROTEIN 5.6 GM/DL (6.4-8.2)
[2018-01-06] MEDS ORDERED: fentaNYL CITRATE 250 MCG/5 ML AMP ONE (23:43)
[2018-01-06 23:49] LABS: HEMATOCRIT 24.9 % (39.0-51.0); HEMOGLOBIN 8.7 GM/DL (13.0-17.0); MEAN CELL VOLUME 87.4 FL (80.0-100.0); MEAN CORPUSCULAR HEMOGLOBIN 30.5 PG (27.0-34.0); MEAN CORPUSCULAR HGB CONC 34.9 % (32.0-36.0); MEAN PLATELET VOLUME 9.3 FL (7.0-11.0); PLATELET COUNT 120 TH/MM3 (150-450); RED BLOOD COUNT 2.85 MIL/MM3 (4.50-5.90); RED CELL DISTRIBUTION WIDTH 15.5 % (11.6-17.2); WHITE BLOOD COUNT 26.1 TH/MM3 (4.0-11.0)
[2018-01-07] VITALS (14 sets, daily range): BP systolic 111–140; BP diastolic 58–76; PULSE 50–77; RESP 17–18; TEMP 97.4–97.8; O2SAT 98–100
[2018-01-07] MEDS ORDERED: ALBUMIN 25% INJ 100 ML IV ONE (00:15)
[2018-01-07] MEDS ORDERED: NOREPINEPHRINE 4 MG/4 ML AMP ONE (01:31)
[2018-01-07 01:43] LABS: HEMATOCRIT 23.2 % (39.0-51.0); HEMOGLOBIN 8.1 GM/DL (13.0-17.0)
[2018-01-07] MEDS: HYDROCORTISONE SOD SUCCINATE 100 MG VIAL IV PUSH SCH ×3 (03:41→20:00)
[2018-01-07] MEDS: PROPOFOL 1000 MG/100 ML INJ 100 ML IV PRN ×4 (03:42→18:27)
--- NOTE | 2018-01-07 03:42 | RADRPT ---
EXAM DATE/TIME: 01/06/2018 22:52 [facility] COMPARISON: No previous studies available for comparison. INDICATIONS : Laminectomy in OR. MEDICAL HISTORY : Benign prostatic hyperplasia, (BPH). Cord compression. SURGICAL HISTORY : Prostate biopsy. Kidney biopsy. ENCOUNTER: Initial ACUITY: 1 day PAIN SCORE: Non-responsive. LOCATION: Thoracic spine FINDINGS: Single intraoperative AP view of the upper thoracic spine shows metallic surgical instrument marking the T2 level of the thoracic spine. CONCLUSION: Single AP intraoperative image for localization. Marcial Redmond MD on January 07, 2018 at 3:39 Board Certified Radiologist. This report was verified electronically.
[2018-01-07] MEDS ORDERED: PHARMACY ORDERED LAB ONE (03:45)
[2018-01-07] MEDS: VANCOMYCIN 1,500 MG/NS 500 ML IV SCH ×4 (03:47→16:37)
[2018-01-07] MEDS: NS + KCL 20 MEQ INJ 1,000 ML IV SCH ×3 (03:48→20:30)
[2018-01-07] MEDS: RESP: ALBUTEROL 2.5 MG/IPRATROPIUM 0.5 MG NEB (SCH) NEB ×4 (03:50→19:49)
[2018-01-07] MEDS ORDERED: CALCIUM CHLORIDE 10% SOLN 1 GRAM/10 ML SYR ONE (03:56)
--- NOTE | 2018-01-07 04:08 | PD.OP ---
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 Severe cervical stenosis with myelopathy 2. Severe thoracic stenosis with myelopathy Postoperative Diagnosis: (1) Cervical disc disease with myelopathy (2) Thoracic disc disease with myelopathy Procedure: Procedure number 1. C2-C6 decompressive laminectomy Procedure number 2,Via separate incision: T2-T6 decompressive laminectomy These procedures represent part 1 of a planned two-part procedure. Patient will return to the operating room and hemodynamically stable for completion of the lower thoracic decompression with evacuation possible epidural abscess, and revision lumbar decompression procedures. Anesthesia: Gen. endotracheal Surgeon: Jerry Chakraborty Standard Machine Stitcher(s): Jorge Luis Garza Operation and Findings: This surgery represents part 1 of a planned two-part procedure. Procedure #1: Procedure in detail: The patient was brought into the operating room and general endotracheal anesthesia induced without difficulty. Lines were established by anesthesia Knee high sequential compression devices were placed Appropriate timeout procedure was performed with all personnel present and in agreement The Sawant 3 point fixation device was placed. The patient was in a cervical collar for positioning Leads for intraoperative neuro monitoring were placed in a baseline study obtained The patient was turned into prone position on the 3080 table on the Jose Cruz frame with the undersigned maintaining control of the head and neck. The head and neck were secured to the operating room table with the Sawant adapter with the neck slightly flexed with 3-4 fingerbreadths between the chin and chest. The neck position was checked with intraoperative C-arm and felt to be satisfactory. The cervical collar was removed. All extremities were appropriately padded. The back of the head and neck were shaved with clippers and sterilely prepped and draped. 1% Xylocaine with epinephrine was used for local infiltration over the incision site was made in the midline posterior neck and carried sharply down to the spinous processes of . The microscope was used as needed during the decompression portion of the procedure.. On the right and left side the posterior muscle attachments and fascia were incised with the Bovie and elevated away from the lamina and facet and spinous processes at the C2-C6 levels with a bernal elevator out to the lateral margin of the facets. The TPS drill with a 5 mm bone bur followed by the 4 mm elsy bur was used to thin out the entire lamina at the C2-C6 levels, with the remaining lamina removed out to the level of the pedicle and medial facet with the thin ligament dissector and the 3 mm and Kerrison rongeur. There appeared to be at least moderate hypertrophy of the facet and ligamentum flavum causing dorsal compression on the posterior spinal canal. Hypertrophied ligamentum flavum was elevated away from the dura with the thin ligament dissector and resected with the Kerrison rongeur. The inferior C2 and superior C6 lamina were removed with the TPS drill and the Kerrison rongeur to further decompress the dura at these levels. The dorsal lateral thecal sac appeared well decompressed at the end of the laminectomy portion of the procedure with good pulsations of the CSF space. The ventral aspect of the C2 lamina was further removed with the TPS drill but the main dorsal portion of the lamina preserved as a muscle attachment along with the lower part of the C6 spinous process and lamina. The region was well irrigated with antibiotic irrigation. Bleeding was carefully controlled with bipolar forceps A 7 mm flat fluted drain was left at the operative site and brought out through an incision in the upper thoracic region and secured to the skin with nylon suture The closure was performed with 0 Vicryl interrupted for the deep and superficial fascia with 3-0 Vicryl interrupted subcutaneous closure and 4-0 Vicryl subcutaneous closure. Procedure #2: 1% Xylocaine with epinephrine was used for local infiltration over the incision site which was made at the midline T2-T6 level as verified with intraoperative C -arm imaging. The incision was carried sharply down to the deep fascia which was incised adjacent to the spinous processes. Marks elevator was used for subperiosteal elevation of paraspinous musculature and fascia away from the lamina and spinous process. The deep self-retaining retractor was placed. The appropriate levels were verified with intraoperative C-arm. Microscope was moved into place and used for the remainder of the procedure including the closure. At each level, the TPS drill with a 5 mm bone bur followed by the 4 mm elsy bur was used to drill a trough in the lamina on each side just medial to the facet. The Leksell rongeur and 3 mm Kerrison rongeur was then used to complete the decompressive laminectomy at T2-T6 levels. The hypertrophied ligamentum flavum at each level was elevated away from the thecal sac with the thin ligament dissector and resected with the 15 blade knife and the Kerrison rongeur out to the level of the deep lateral recess to completely decompress the thecal sac and exiting nerve roots. The thecal sac appeared well decompressed. The procedure. No spinal fluid leakage was encountered. Bleeding was carefully controlled with the bipolar forceps. A 10 mm Rodriguez-Santana drain as left in place at the operative site and brought out through an incision in the mid thoracic region and secured to the skin with nylon suture and attached to a bulb suction. The closure was performed with 0 Vicryl interrupted for the deep and superficial fascia, with 3-0 Vicryl interrupted subcutaneous closure, and 4-0 Vicryl running subcuticular closure. A dressing of sterile Mastisol, Steri- Strips, and Primapore was placed at both incision sites The patient was taken to the intensive surgical care unit in stable condition. All counts were correct at the end of the case. Estimated blood loss was 1000 No specimen was sent to pathology The patient has been found to have probable area of epidural abscess formation at the T11-12 level with possibly hematoma or other source or residual stenosis at the L4-5 level which was previously decompressed with a semi-laminectomy. Due to the degree of blood loss during the cervical and upper thoracic decompression portion of the procedure, it was elected to stage the remaining lower thoracic and revision lumbar decompression. The patient will return for part 2 of the surgery when hemodynamically stable. Jerry Chakraborty MD Jan 07, 2018 04:08
--- NOTE | 2018-01-07 04:52 | RADRPT ---
EXAM DATE/TIME: 01/07/2018 03:50 [facility] COMPARISON: ABDOMEN KUB ONLY, January 05, 2018, 11:16. INDICATIONS : Evalaute for ileus. MEDICAL HISTORY : Benign prostatic hyperplasia, (BPH). Cord compression. SURGICAL HISTORY : Prostate biopsy. Kidney biopsy. ENCOUNTER: Subsequent ACUITY: 3 days PAIN SCORE: Non-responsive. LOCATION: Abdomen FINDINGS: 2 AP supine views of the abdomen. Diffuse gas filled distention of the colon and small bowel again se en. No significant interval change. Nasogastric tube is in place with the tip in the stomach. CONCLUSION: Diffuse gas filled distention of colon and small bowel again likely representing ileus. No significan t interval change. Nasogastric tube is in place. Marcial Redmond MD on January 07, 2018 at 4:48 Board Certified Radiologist. This report was verified electronically.
[2018-01-07 04:58] LABS: ALBUMIN 1.5 GM/DL (3.4-5.0); BICARBONATE 26.1 MEQ/L (21.0-32.0); CALCIUM 7.2 MG/DL (8.5-10.1); CALCIUM-PROTEIN CORRECTED 8.3 MG/DL (8.5-10.1); CREATININE 0.86 MG/DL (0.60-1.30); TOTAL BILIRUBIN ADULT 2.6 MG/DL (0.2-1.0)
[2018-01-07] MEDS: ARTIFICIAL TEARS OPTH SOLN 15 ML BTL EACH EYE SCH ×3 (05:12→22:00)
[2018-01-07] MEDS: POTASSIUM PHOSPHATE/SODIUM PHOSPHATE 250 MG TAB PO SCH ×4 (05:17→18:00)
[2018-01-07] MEDS: metroNIDAZOLE 500 MG INJ 100 ML IV SCH ×3 (05:17→22:00)
[2018-01-07] MEDS: METOCLOPRAMIDE HCL 10 MG/2 ML VIAL IM SCH ×3 (05:18→22:00)
[2018-01-07] MEDS: cefTAZidime INJ 2,000 MG in SODIUM CHLORIDE 0.9% INJ 100 ML IV SCH ×3 (05:18→22:00)
[2018-01-07 05:56] LABS: BASOPHIL % 0.1 % (0.0-2.0); EOSINOPHIL % 0.1 % (0.0-4.0); HEMATOCRIT 24.2 % (39.0-51.0); HEMOGLOBIN 8.6 GM/DL (13.0-17.0); LYMPHOCYTE # 0.7 TH/MM3 (1.0-4.8); MEAN CELL VOLUME 87.5 FL (80.0-100.0); MEAN CORPUSCULAR HEMOGLOBIN 31.3 PG (27.0-34.0); MEAN CORPUSCULAR HGB CONC 35.8 % (32.0-36.0); MONO % 7.8 % (0.0-8.0); MONOCYTE # 1.4 TH/MM3 (0-0.9); PLATELET COUNT 97 TH/MM3 (150-450); RED BLOOD COUNT 2.76 MIL/MM3 (4.50-5.90); RED CELL DISTRIBUTION WIDTH 15.5 % (11.6-17.2); WHITE BLOOD COUNT 18.2 TH/MM3 (4.0-11.0)
[2018-01-07 07:52] LABS: LYMPHOCYTES 3 % (9-44); MONOCYTES 3 % (0-8); MYELOCYTES 3 % (0-0); NEUTROPHIL # MANUAL DIFF 17.1 TH/MM3 (1.8-7.7); POLYS (SEG NEUTROPHILS) 91 % (16-70)
[2018-01-07 07:53] LABS: DOHLE BODIES PRESENT (NONE SEEN)
[2018-01-07 07:54] LABS: TOXIC GRANULATION 1+ (NORMAL)
[2018-01-07 08:00] LABS: TOXIC VACUOLATION PRESENT (NONE SEEN)
[2018-01-07] MEDS ORDERED: CALCIUM CHLORIDE INJ 1 GM in SODIUM CHLORIDE 0.9% INJ 100 ML IV ONE (09:00)
[2018-01-07] MEDS: SODIUM CHLORIDE 0.9% FLUSH 10 ML FLUSH IV FLUSH SCH ×2 (09:00→21:00)
[2018-01-07] MEDS: METHOCARBAMOL 500 MG TAB PO SCH ×4 (09:51→21:00)
[2018-01-07] MEDS: FAMOTIDINE 20 MG TAB PO SCH ×2 (09:51→21:00)
[2018-01-07] MEDS: DOCUSATE SODIUM 50 MG/SENNA 8.6 MG TAB PO SCH ×2 (09:52→21:00)
[2018-01-07] MEDS: ATORVASTATIN 40 MG TAB PO SCH (09:52)
--- NOTE | 2018-01-07 10:05 | HHI.IDPN ---
Subjective Subjective Remarks Patient seen and examined with Dr. Charles Mr. Reeves is a 67 y/o CM with history of BPH who underwent a prostate biopsy one week ago, on 12/27/17. On the evening of 12/29/17 he developed fever and chills, low back pain, and lower extremity numbness and paresthesias and muscle spasm. He was seen by his primary care physician and was given medication including muscle relaxant. The symptoms persisted and he returned to his primary care physician on 01/01/18 and was given additional medications including Cipro and medrol dose pack. On 01/02/2018 patient woke up with increased lower extremity weakness and numbness, and fell in the shower in the morning, after which he was unable to ambulate or lift his legs off the bed , and continued to experience pain in the lower back. He went to the emergency room at [facility], and was given additional medication injections. He could not lift his legs off the bed or ambulate in the emergency room, and was taken out to his car and lifted into the car and sent home again. He fell in the driveway again trying to get back into the house. He apparently did not urinate for the entire day. He has no complaint of pain which is numbness paresthesias in the upper extremities. Reportedly on admission there was no numbness or paresthesias over the chest or abdomen or pelvic region. The MRI of thoracic spine shows severe canal stenosis at T2-3 and T5-6 level with cord compressions, complete or near complete canal obliteration at L2-3 L3- 4 and severe multilevel canal stenosis of the C-spine. Entire spine including C spine shows areas of stenosis. Upon my discussion with patient had to be emergently taken to the OR for decompression. Intraop cultures were taken and no hardware placed at present time but it appears that patient will need more surgeries. The MRIs done were non contrast due to Acute renal failure on admission and cannot be repeated. Per dw plan is to treat as epidural abscess stone since patient was treated for few days with antibiotics prior to arrival and also due to patient needing hardware placement which can be seeded. Previously, Intubated, being weaned off sedation, UO is good peck in place. Not on any pressors. There is a plan wean and extubate. ID consulted for evaluation and Management of GN madonna bacteremia (E.coli CTX M negative) and possible epidural abscess. Reviewed overnight events. Notes reviewed. Patient underwent procedure 1 C2-C6 decompressive laminectomy, procedure to T2- T6 decompressive laminectomy. (Separate incisions) by Dr. Chakraborty C-collar in place. 2 GUIDO drain sanguinous drainage, Moderate amount at the bedside. Spoke with nursing. Patient currently is intubated and sedated on mechanical ventilation. Currently on pressor -Levophed T-max overnight 102.4 No rash, no diarrhea. Unable to assess extremity movement secondary to sedation Ileus noted on x-ray Leukocytosis present, WBC 18.2 Antibiotics Cefepime IV Lines Line sites with no e.o infection Past Medical History reviewed (Pablo Bella) Allergies: Coded Allergies: No Known Allergies (Unverified , 01/02/18) Objective . Vital Signs Date Time Temp Pulse Resp B/P (MAP) Pulse Ox O2 Delivery O2 Flow Rate FiO2 01/07/18 08:28 99 50 01/07/18 08:00 53 01/07/18 08:00 97.4 54 17 136/69 (91) 98 140/76 (97) 01/07/18 08:00 50 01/07/18 07:00 99 Mechanical Ventilator 50 01/07/18 04:00 97.8 77 18 136/71 (92) 98 131/65 (87) 01/07/18 04:00 50 01/07/18 03:18 98 50 01/06/18 21:25 100 100 01/06/18 20:30 60 01/06/18 20:00 102.4 128 18 156/77 (103) 183/74 (110) 01/06/18 19:45 Mechanical Ventilator 60 01/06/18 19:41 100 100 01/06/18 18:06 95 Venturi Mask 6.00 50 01/06/18 18:00 108 01/06/18 16:00 98.5 108 25 155/82 (106) 100 01/06/18 16:00 108 01/06/18 14:00 114 01/06/18 12:00 99.3 117 30 176/92 (120) 99 01/06/18 12:00 117 . Laboratory Tests Test 01/06/18 05:54 01/06/18 21:44 01/06/18 22:17 01/06/18 23:40 White Blood Count 20.2 TH/MM3 15.8 TH/MM3 18.3 TH/MM3 26.1 TH/MM3 Red Blood Count 2.74 MIL/MM3 2.09 MIL/MM3 2.14 MIL/MM3 2.85 MIL/MM3 Hemoglobin 8.5 GM/DL 6.6 GM/DL 6.8 GM/DL 8.7 GM/DL Hematocrit 24.5 % 19.0 % 19.4 % 24.9 % Mean Corpuscular Volume 89.7 FL 90.6 FL 90.9 FL 87.4 FL Mean Corpuscular Hemoglobin 31.1 PG 31.5 PG 31.8 PG 30.5 PG Mean Corpuscular Hemoglobin Concent 34.7 % 34.8 % 35.0 % 34.9 % Red Cell Distribution Width 13.6 % 13.8 % 13.6 % 15.5 % Platelet Count 81 TH/MM3 81 TH/MM3 93 TH/MM3 120 TH/MM3 Mean Platelet Volume 10.1 FL 9.5 FL 9.7 FL 9.3 FL CBC Comment AUTO DIFF Differential Total Cells Counted 100 Neutrophils % (Manual) 94 % Band Neutrophils % 2 % Lymphocytes % 1 % Monocytes % 1 % Neutrophils # (Manual) 19.4 TH/MM3 Differential Comment FINAL DIFF MANUAL Plasma Cells 2 % Toxic Vacuolation PRESENT Platelet Estimate LOW Platelet Morphology Comment NORMAL Test 01/07/18 01:10 01/07/18 02:12 01/07/18 05:42 Hemoglobin 8.1 GM/DL 8.6 GM/DL Hematocrit 23.2 % 24.2 % Platelet Count 101 TH/MM3 97 TH/MM3 White Blood Count 18.2 TH/MM3 Red Blood Count 2.76 MIL/MM3 Mean Corpuscular Volume 87.5 FL Mean Corpuscular Hemoglobin 31.3 PG Mean Corpuscular Hemoglobin Concent 35.8 % Red Cell Distribution Width 15.5 % Mean Platelet Volume 9.0 FL Neutrophils (%) (Auto) 88.0 % Lymphocytes (%) (Auto) 4.0 % Monocytes (%) (Auto) 7.8 % Eosinophils (%) (Auto) 0.1 % Basophils (%) (Auto) 0.1 % Neutrophils # (Auto) 16.0 TH/MM3 Lymphocytes # (Auto) 0.7 TH/MM3 Monocytes # (Auto) 1.4 TH/MM3 Eosinophils # (Auto) 0.0 TH/MM3 Basophils # (Auto) 0.0 TH/MM3 CBC Comment AUTO DIFF Differential Total Cells Counted 100 Neutrophils % (Manual) 91 % Lymphocytes % 3 % Monocytes % 3 % Neutrophils # (Manual) 17.1 TH/MM3 Myelocytes 3 % Differential Comment FINAL DIFF MANUAL Toxic Granulation 1+ Toxic Vacuolation PRESENT Dohle Bodies PRESENT Platelet Estimate LOW Platelet Morphology Comment NORMAL Laboratory Tests Test 01/05/18 15:16 01/06/18 05:54 01/06/18 11:12 01/06/18 12:35 Lactic Acid Level 1.6 mmol/L 1.1 mmol/L Blood Urea Nitrogen 24 MG/DL 25 MG/DL Creatinine 0.95 MG/DL 0.91 MG/DL Random Glucose 101 MG/DL 126 MG/DL Total Protein 6.9 GM/DL Albumin 1.7 GM/DL Calcium Level 7.6 MG/DL 7.5 MG/DL Phosphorus Level 2.7 MG/DL Magnesium Level 1.8 MG/DL Alkaline Phosphatase 292 U/L Aspartate Amino Transf (AST/SGOT) 52 U/L Alanine Aminotransferase (ALT/SGPT) 41 U/L Total Bilirubin 2.2 MG/DL Sodium Level 130 MEQ/L 130 MEQ/L Potassium Level 4.0 MEQ/L 4.0 MEQ/L Chloride Level 97 MEQ/L 99 MEQ/L Carbon Dioxide Level 22.5 MEQ/L 21.5 MEQ/L Anion Gap 11 MEQ/L 10 MEQ/L Estimat Glomerular Filtration Rate 79 ML/MIN 83 ML/MIN Ammonia 21 MCMOL/L Test 01/06/18 21:44 01/07/18 03:45 Blood Urea Nitrogen 24 MG/DL 23 MG/DL Creatinine 0.82 MG/DL 0.86 MG/DL Random Glucose 122 MG/DL 180 MG/DL Total Protein 5.6 GM/DL 5.0 GM/DL Calcium Level 6.8 MG/DL 7.2 MG/DL Sodium Level 135 MEQ/L 135 MEQ/L Potassium Level 4.2 MEQ/L 4.8 MEQ/L Chloride Level 104 MEQ/L 102 MEQ/L Carbon Dioxide Level 24.2 MEQ/L 26.1 MEQ/L Anion Gap 7 MEQ/L 7 MEQ/L Estimat Glomerular Filtration Rate 93 ML/MIN 88 ML/MIN Protein Corrected Calcium 7.6 MG/DL 8.3 MG/DL Albumin 1.5 GM/DL Alkaline Phosphatase 151 U/L Aspartate Amino Transf (AST/SGOT) 34 U/L Alanine Aminotransferase (ALT/SGPT) 23 U/L Total Bilirubin 2.6 MG/DL Microbiology Date/Time Source Procedure Growth Status 01/05/18 04:00 Blood Peripheral Aerobic Blood Culture - Preliminary NO GROWTH IN 1 DAY Resulted 01/05/18 04:00 Blood Peripheral Anaerobic Blood Culture - Preliminary NO GROWTH IN 1 DAY Resulted 01/05/18 03:50 Blood Peripheral Aerobic Blood Culture - Preliminary NO GROWTH IN 1 DAY Resulted 01/05/18 03:50 Blood Peripheral Anaerobic Blood Culture - Preliminary NO GROWTH IN 1 DAY Resulted Imaging Last Impressions Thoracic Spine MRI 01/03/18 0000 Signed Impressions: Service Date/Time: Wednesday, January 03, 2018 00:38 - CONCLUSION: Multilevel disc abnormalities. Severe canal stenosis at T2-3 and T5-6 with cord compression and mild signal changes in the cord at T2-3 and moderate signal changes within the cord at T5-6. Less severe changes at L2 additional levels as described. Harley Herrera MD Lumbar Spine MRI 01/03/18 0000 Signed Impressions: Service Date/Time: Wednesday, January 03, 2018 00:38 - CONCLUSION: Complete or near complete canal obliteration at L2-3, L3-4 and L4-5 with less severe compromise at L1-2 and T12-L1. Harley Herrera MD Cervical Spine MRI 01/03/18 0000 Signed Impressions: Service Date/Time: Wednesday, January 03, 2018 00:38 - CONCLUSION: Severe multilevel canal stenosis. Findings appear to be most critical at C4-5 and C5-6 where AP canal dimension is reduced to 4-5 mm, however also quite severe at C2-3 and C3-4. Harley Herrera MD Chest X-Ray 01/02/18 218 Signed Impressions: Service Date/Time: Tuesday, January 02, 2018 23:11 - CONCLUSION: Mild basilar atelectasis or scarring. Harley Herrera MD Physical Exam GENERAL: This is a well-nourished, well-developed patient, intubated, sedated. SKIN: Warm and dry. HEAD: Normocephalic. EYES: Pupils equal round. No scleral icterus. No injection or drainage. ENT: No thrush, dry oral mucosa. Nose without bleeding. Airway patent. NECK: Trachea midline. C-collar in place. CARDIOVASCULAR: Bradycardia. RESPIRATORY: Diminished breath sounds. No wheezes, rales, or rhonchi. Intubated on mechanical ventilation. GASTROINTESTINAL: Abdomen non-tender, soft, slightly distended. Hypoactive bowel sounds. NG tube in place clamped. : Peck catheter draining clear yellow colored urine MUSCULOSKELETAL: Extremities without clubbing, cyanosis. Generalized edema +1 of extremities. NEUROLOGICAL: Intubated, sedated. LINES: Left IJ central line in place. 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 -Paraparesis present on admission -Initially went bilateral L1-L2, L2-L3, L3-L4, L4-L5 decompressive semi- laminectomy, medial facetectomy for spinal canal decompression -Patient had severe lumbar canal stenosis with cauda equina syndrome, cervical degenerative disease with severe stenosis and myelopathy, thoracic disc disease with severe canal stenosis and myelopathy -01/06/18 MRI cervical spine showed severe degenerative changes with severe spinal stenosis at C2-C3, C3-C4, C4-C5 and C5-C6. There is moderate spinal stenosis at C6-C7 and C7-T1. -01/06/18 MRI of the brain negative -01/06/17 Patient underwent C2 -C6 decompressive laminectomy, T2-T6 decompressive laminectomy -Per neurosurgery note, patient found to have probable area of epidural abscess formation at the T11-12 level with possibly hematoma or other source or residual stenosis at the L4-5 level which was previously decompressed with a semi-laminectomy. Due to the degree of blood loss during the cervical and upper thoracic decompression portion of the procedure, it was elected to stage the remaining lower thoracic and revision lumbar decompression. The patient will return for part 2 of the surgery when hemodynamically stable. HCAP Pneumonia - CXR new infiltrate E.coli bacteremia (CTX M negative) Recent history of prostate biopsy as risk factor for E.coli bacteremia. -E.Coli UTI recent prostate biopsy. Ileus - Abdominal x-ray showed mildly prominent gas-filled loops of large bowel with disproportionately dilated loops. The appearance suggests ileus Recommendations: Continue ceftazidime IV, Vancomycin IV, metronidazole 500 mg Q8 IV Continue supportive care for hemodynamics currently on vasopressin, Levophed Monitor CBC, CMP Wound cx, urine CX and Blood cx positive for E.coli. Repeat blood cultures no growth to date in 2 days preliminary 2D ECHO no obvious vegetation. Will consider APRYL if Neurosurgery clears him for APRYL. Needs CT Chest/abd pelvis in future to look for prostate abscess etc as source of infection or evidence of distant dissemination to Spleen,Liver etc. Urology consult appreciated. Gastroenterology consult appreciated, recommends Relistor, NGT Follow cultures Follow clinically Discussed extensively patient condition and plan of care with . is very appreciative of all the care that the patient has received. Will coordinate plan with critical care, neurosurgery -plan for OR procedure by Dr. Chakraborty, for lower thoracic and revision of lumbar decompression Further recommendations to follow (Pablo Bella) Remarks The exam, history, and the medical decision-making described in the above note were completed with the assistance of the mid-level provider. I reviewed and agree with the findings presented. I attest that I had a [id number] encounter with the patient on the same day, and personally performed and documented my assessment and findings in the medical record. On pressors this am. Recd paralytics yday so upper extremities could not be assessed. Multiple blood products overnight at risk for TRALI. Also recd Albumin. Anderson Connor: no intraop evidence for infection on gross exam, no cultures sent. Upper cervical and thoracic areas explored. No hardware placed. Plan for staged washout next is lumbar area with fluid collection likely abscess. Prior site of E.coli growth. Asked him to collect new specimens from the fluid collection. Anderson [facility] MD VENEGAS patients spouse: he understands patient at risk for Tetraplegia (partial or complete). He understands prognosis guarded. He is thankful of care provided. No Living will in place. Patients male spouse is the POA. (Shanda Charles MD) Pablo Bella Jan 07, 2018 10:05 Shanda Charles MD Jan 07, 2018 15:53
[2018-01-07] MEDS: fentaNYL DRIP 250 ML IV PRN ×3 (10:09→18:29)
[2018-01-07] MEDS: NOREPINEPHRINE INJ 4 MG in SODIUM CHLOR 0.9% 250 ML INJ 246 ML IV PRN (10:10)
[2018-01-07] MEDS: VASOPRESSIN INJ 40 UNITS in DEXTROSE 5% IN WATER 100ML INJ 98 ML IV SCH ×4 (10:10→19:19)
--- NOTE | 2018-01-07 11:18 | HHI.NSPN ---
(Tigre Estrada) History Chief Complaint: Unable to obtain due to patient's clinical condition. (Tigre Estrada) Interval History 01/03: 67-year-old male who underwent a prostate biopsy one week ago, on . He states that on the evening of 12/29/17 on into the morning of 12/30/17, he developed fever and chills, low back pain, and lower extremity numbness and paresthesias and muscle spasm. He was seen by his primary care physician and was given medication including muscle relaxant. The symptoms persisted and he returned to his primary care physician on Wednesday , 01/01/18 and was given additional medications including Cipro. He awoke on 01/02/2018 with increased lower extremity weakness and numbness, and fell in the shower in the morning, after which he was unable to ambulate or lift his legs off the bed, and continued to experience pain in the lower back. He went to the emergency room at [facility], and was given additional medication injections. He states that he could not lift his legs off the bed or ambulate in the emergency room, and was taken out to his car and lifted into the car and sent home again. He fell in the driveway again trying to get back into the house. He apparently did not urinate for the entire day. He has no complaint of pain which is numbness paresthesias in the upper extremities. No numbness or paresthesias over the chest or abdomen or pelvic region. The patient was emergently taken to the operating room for a bilateral L1-2, L2- 3, L3 4, L4 5 decompressive semi-laminectomy, medial facetectomy for spinal canal decompression. Post-operatively the patient remained intubated and was admitted to [facility] for further care and monitoring. 01/04: When seen this afternoon the patient has been extubated. He is awake and alert and readily interacts. He does report pain to the neck and the lower back. He has no numbness, tingling or weakness to the upper extremities but does say he will have pain shooting down them if he moves wrong. He denies any pain to the lower extremities but does have numbness to both feet and about the only movement he is able to do is move his knees medially and laterally. Upon examination the patient's sensorimotor exam is improved from pre-operatively 01/05: The patient desaturated this morning and a Halicat was initiated. From the EMR Nursing reported that the patient was lethargic and difficult to arouse. His sat was in the 80s and he did have a fever of 102F. He was therefore transferred back to [facility]. A chest x-ray demonstrated a left lower lobe consolidation. His blood, urine and lumbar spine wound cultures have all come back positive for Escherichia coli. When seen this afternoon the patient was awake, alert and readily interacted. He was visiting with his significant other. His upper extremity examination was variable with some improvement and some decline. His sensation and motor strength to the lower extremities had declined. The surgical incision looked good upon examination and the GUIDO drain was removed. 01/06: This afternoon the patient is on a nonrebreather mask when seen, he is tachypneic and laboured. He says he has some low back pain, especially at night. He denies any neck pain or headache. He has worsening of his muscle strength to the upper extremities and it remains poor to the lower. 01/07: The patient was urgently intubated yesterday evening for worsening respiratory status and remains so this morning. He underwent emergent surgery for decompression of the cervical and thoracic spines. Post-operatively he returned to [facility]. He is sedated with propofol. He has vasopressin and norepinephrine infusing for blood pressure support. He is obtunded but sedated and there is no response to any stimulation. (Tigre Estrada) System Review Comments Unable to obtain due to patient's clinical condition. (Tigre Estrada) Exam Results 01/05/18 01/05/18 01/06/18 01/06/18 01/07/18 01/07/18 06:00 18:00 06:00 18:00 06:00 18:00 Intake Total 620 ml 1200 ml 535 ml 1740 ml 5715 ml 300 ml Output Total 3452 ml 1500 ml 1100 ml 2010 ml Balance 620 ml -2252 ml -965 ml 640 ml 3705 ml 300 ml Intake Oral 1200 ml 240 ml IV Total 620 ml 0 ml 535 ml 1500 ml 1515 ml 300 ml Other 4200 ml Output Urine Total 3452 ml 1500 ml 1100 ml 900 ml Gastric Drainage Total 0 ml Drainage Total 110 ml Estimated Blood Loss 1000 ml # Bowel Movements 0 0 0 0 Vital Signs Date Time Temp Pulse Resp B/P (MAP) Pulse Ox O2 Delivery O2 Flow Rate FiO2 01/07/18 10:46 98 50 01/07/18 10:10 60 119/62 01/07/18 10:10 60 122/63 01/07/18 10:00 62 01/07/18 08:28 99 50 01/07/18 08:00 53 01/07/18 08:00 97.4 54 17 136/69 (91) 98 140/76 (97) 01/07/18 08:00 50 01/07/18 07:00 99 Mechanical Ventilator 50 01/07/18 04:00 97.8 77 18 136/71 (92) 98 131/65 (87) 01/07/18 04:00 50 01/07/18 03:18 98 50 01/06/18 21:25 100 100 01/06/18 20:30 60 01/06/18 20:00 102.4 128 18 156/77 (103) 183/74 (110) 01/06/18 19:45 Mechanical Ventilator 60 01/06/18 19:41 100 100 01/06/18 18:06 95 Venturi Mask 6.00 50 01/06/18 18:00 108 01/06/18 16:00 98.5 108 25 155/82 (106) 100 01/06/18 16:00 108 01/06/18 14:00 114 01/06/18 12:00 99.3 117 30 176/92 (120) 99 01/06/18 12:00 117 01/06/18 10:00 117 01/06/18 08:00 98.8 112 29 168/93 (118) 97 01/06/18 08:00 108 01/06/18 07:00 99 Nasal Cannula 4.00 01/06/18 06:00 121 01/06/18 04:00 121 01/06/18 04:00 99.1 108 22 155/81 (105) 97 01/06/18 02:00 111 01/06/18 00:00 99.1 112 18 148/74 (98) 96 01/06/18 00:00 121 01/05/18 22:00 121 01/05/18 20:36 99 Nasal Cannula 4.00 01/05/18 20:00 98.8 112 16 131/74 (93) 96 01/05/18 20:00 112 01/05/18 19:00 99 Nasal Cannula 4.00 01/05/18 18:00 121 01/05/18 16:00 100.0 140 20 169/111 (130) 99 01/05/18 16:00 140 01/05/18 14:00 100 01/05/18 12:00 116 01/05/18 12:00 98.4 104 20 146/77 (100) 99 01/05/18 11:46 99 Nasal Cannula 4.00 01/05/18 11:46 98.4 117 20 141/79 (99) 99 01/05/18 11:45 117 01/05/18 11:04 97 4.00 01/05/18 10:45 102.5 140 22 136/73 (94) 96 01/05/18 10:38 102.5 130 22 168/77 (107) 97 01/05/18 10:30 102.5 133 22 174/82 (112) 86 01/05/18 09:19 93 01/05/18 09:03 18 01/05/18 08:00 97.9 97 16 157/74 (101) 94 01/05/18 04:45 98.5 101 20 158/83 (108) 98 01/05/18 04:19 98 21 01/04/18 22:43 98.4 84 18 135/71 (92) 99 01/04/18 20:00 122 01/04/18 20:00 102.7 122 27 133/67 (89) 97 01/04/18 19:00 94 Room Air 01/04/18 16:00 94 01/04/18 16:00 100.3 94 24 144/72 (96) 96 Arterial Line 01/04/18 14:00 108 01/04/18 12:00 98 01/04/18 12:00 98.8 98 24 150/74 (99) 97 Arterial Line (Tigre Estrada) Physical Examination GENERAL: Obtunded but sedated w/propofol 40 mcg/kg/min infusing. Fentanyl 250 mcg/hr infusing for pain control. Intubated & mechanically ventilated. His skin is cool & diaphoretic. Vasopressin infusing at 0.04 units/min and norepinephrine at 3 mcg/min. HEENT: Normocephalic, atraumatic. Pupils 2 mm, appear nonreactive. Orally intubated. OGT. NECK: Alpine J cervical collar in place. Neck supple. No JVD. Trachea midline. MUSCULOSKELETAL: No movement of extremities to stimulation. No evident clubbing or deformity. NEUROLOGICAL: Obtunded but sedated. No eye opening to any stimulation. Pupils 2 mm appear nonreactive. No corneal reflex. Nonverbal, intubated. No cough reflex. Did not follow any commands. No response to any stimulation. (Tigre Estrada) Lab, Micro, Other Results Recent Impressions Abdomen X-Ray 01/07/18 0600 Signed Impressions: Service Date/Time: Sunday, January 07, 2018 03:50 - CONCLUSION: Diffuse gas filled distention of colon and small bowel again likely representing ileus. No significant interval change. Nasogastric tube is in place. Marcial Redmond MD Thoracic Spine X-Ray 01/07/18 0000 Signed Impressions: Service Date/Time: January 22:52 - CONCLUSION: Single AP intraoperative image for localization. Marcial Redmond MD Thoracic Spine MRI 01/06/18 0000 Signed Impressions: Service Date/Time: January 14:23 - CONCLUSION: 1. Multilevel cord compression is due predominantly to multiple disc protrusions. Significant cord compression is present at least 6 levels. There is also cord compression posteriorly at the T10 level due to a fluid collection in the midline which measures 6 mm in AP dimension. 2. There is also focal subcutaneous right parasagittal fluid collection at T10 and T11 which does not demonstrate peripheral contrast enhancement. An abscess is suspected. Jagjit Wilkinson MD Chest X-Ray 01/06/18 0000 Signed Impressions: Service Date/Time: January 20:20 - CONCLUSION: 1. Endotracheal tube tip in proximal right mainstem bronchus. This should be withdrawn about 3 cm. Nasogastric tube in stomach. 2. Left central line tip not well visualized but probably in brachiocephalic vein. Frederick Rizzo MD Chest X-Ray 01/06/18 Signed Impressions: Service Date/Time: January 12:51 - CONCLUSION: 1. Cardiomegaly with hypoinflation 2. Worsening bibasilar atelectasis Alberto Covington MD Chest CT 01/06/18 Signed Impressions: Service Date/Time: January 18:51 - CONCLUSION: 1. No abscess identified outside of the thoracic spinal canal. Small bilateral pleural effusions. NG coiled in the stomach. Frederick Rizzo MD Cervical Spine MRI 01/06/18 Signed Impressions: Service Date/Time: January 14:23 - CONCLUSION: 1. Severe degenerative changes with severe spinal stenosis at C2-3, C3-4, C4-5 and C5-6. There is moderate spinal stenosis at C6-7 and C7-T1. Overall assessment of the cord is limited due to motion artifact. I do not definitively see edema within the cord however there is significant flattening of the cord at multiple levels. 2. No significant abnormal contrast enhancement identified. Leonardo Sorenson MD Brain MRI 01/06/18 Signed Impressions: Service Date/Time: January 14:23 - CONCLUSION: 1. Negative MRI of the brain with and without contrast. Jagjit Wilkinson MD Abdomen/Pelvis CT 01/06/18 Signed Impressions: Service Date/Time: January 18:51 - CONCLUSION: 1. Multiple laminectomy defects in the lumbar spine with some locules of air both within the canal and within the L2 vertebral body which could be related to infection. Cannot exclude abscess formation within the canal. 2. 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 3. Diffuse ileus. 4. Small effusions and mild anasarca. 5. Reyna catheter in decompressed bladder. NG coiled in stomach. Frederick Rizzo MD Lumbar Spine MRI 01/05/18 Signed Impressions: Service Date/Time: Friday, January 05, 2018 14:27 - CONCLUSION: 1. Extensive postsurgical changes with apparent left decompressive laminectomy leftward from L1 to through L4-5. 2. There is a well-circumscribed 1.4 cm cystic structure midline just posterior to the thecal sac at L4-5 which was not clearly present previously. May represent a small seroma which could result in some degree of central spinal stenosis despite the left laminectomy. 3. In addition, severe narrowing of the right L4-5 neural foramen with almost certain compromise of the right L4 nerve root. Emir Bowles MD Chest X-Ray 01/05/18 0000 Signed Impressions: Service Date/Time: Friday, January 05, 2018 11:07 - CONCLUSION: Findings suggesting new subsegmental area of consolidation in the medial left lower lobe. Jagjit Wilkinson MD Abdomen X-Ray 01/05/18 0000 Signed Impressions: Service Date/Time: Friday, January 05, 2018 11:16 - CONCLUSION: Mildly prominent gas filled loops of small and large bowel without disproportionately dilated loops. The appearance suggests ileus. Jagjit Wilkinson MD Laboratory Tests Test 01/04/18 11:35 01/05/18 06:50 01/05/18 10:35 01/05/18 15:16 White Blood Count 16.8 TH/MM3 13.9 TH/MM3 Red Blood Count 2.67 MIL/MM3 2.98 MIL/MM3 Hemoglobin 8.4 GM/DL 9.4 GM/DL Hematocrit 24.2 % 27.4 % Mean Corpuscular Volume 90.6 FL 92.0 FL Mean Corpuscular Hemoglobin 31.5 PG 31.6 PG Mean Corpuscular Hemoglobin Concent 34.8 % 34.4 % Red Cell Distribution Width 13.5 % 13.5 % Platelet Count 63 TH/MM3 55 TH/MM3 Mean Platelet Volume 8.2 FL 9.2 FL CBC Comment AUTO DIFF Differential Total Cells Counted 100 Neutrophils % (Manual) 82 % Band Neutrophils % 9 % Lymphocytes % 5 % Monocytes % 4 % Neutrophils # (Manual) 12.6 TH/MM3 Differential Comment FINAL DIFF MANUAL Toxic Granulation 1+ Toxic Vacuolation PRESENT Platelet Estimate LOW Platelet Morphology Comment NORMAL Blood Urea Nitrogen 28 MG/DL Creatinine 1.07 MG/DL Random Glucose 92 MG/DL Total Protein 6.6 GM/DL Albumin 1.8 GM/DL Calcium Level 7.7 MG/DL Phosphorus Level 1.7 MG/DL Magnesium Level 1.7 MG/DL Alkaline Phosphatase 319 U/L Aspartate Amino Transf (AST/SGOT) 65 U/L Alanine Aminotransferase (ALT/SGPT) 48 U/L Total Bilirubin 2.3 MG/DL Sodium Level 131 MEQ/L Potassium Level 3.6 MEQ/L Chloride Level 99 MEQ/L Carbon Dioxide Level 23.3 MEQ/L Anion Gap 9 MEQ/L Estimat Glomerular Filtration Rate 69 ML/MIN Blood Gas Puncture Site LT RADIAL Blood Gas Patient Temperature 98.6 Blood Gas HCO3 22 mmol/L Blood Gas Base Excess -0.5 mmol/L Blood Gas Oxygen Saturation 95 % Arterial Blood pH 7.52 Arterial Blood Partial Pressure CO2 27 mmHg Arterial Blood Partial Pressure O2 86 mmHg Arterial Blood Oxygen Content 12.7 Vol % Arterial Blood Carboxyhemoglobin 1.8 % Arterial Blood Methemoglobin 0.7 % Blood Gas Hemoglobin 9.4 G/DL Oxygen Delivery Device NASAL CANNULA Blood Gas Liter Flow 4 L/M Lactic Acid Level 1.6 mmol/L Test 01/06/18 05:54 01/06/18 11:12 01/06/18 11:56 01/06/18 12:35 White Blood Count 20.2 TH/MM3 Red Blood Count 2.74 MIL/MM3 Hemoglobin 8.5 GM/DL Hematocrit 24.5 % Mean Corpuscular Volume 89.7 FL Mean Corpuscular Hemoglobin 31.1 PG Mean Corpuscular Hemoglobin Concent 34.7 % Red Cell Distribution Width 13.6 % Platelet Count 81 TH/MM3 Mean Platelet Volume 10.1 FL CBC Comment AUTO DIFF Differential Total Cells Counted 100 Neutrophils % (Manual) 94 % Band Neutrophils % 2 % Lymphocytes % 1 % Monocytes % 1 % Neutrophils # (Manual) 19.4 TH/MM3 Differential Comment FINAL DIFF MANUAL Plasma Cells 2 % Toxic Vacuolation PRESENT Platelet Estimate LOW Platelet Morphology Comment NORMAL Blood Urea Nitrogen 24 MG/DL 25 MG/DL Creatinine 0.95 MG/DL 0.91 MG/DL Random Glucose 101 MG/DL 126 MG/DL Total Protein 6.9 GM/DL Albumin 1.7 GM/DL Calcium Level 7.6 MG/DL 7.5 MG/DL Phosphorus Level 2.7 MG/DL Magnesium Level 1.8 MG/DL Alkaline Phosphatase 292 U/L Aspartate Amino Transf (AST/SGOT) 52 U/L Alanine Aminotransferase (ALT/SGPT) 41 U/L Total Bilirubin 2.2 MG/DL Sodium Level 130 MEQ/L 130 MEQ/L Potassium Level 4.0 MEQ/L 4.0 MEQ/L Chloride Level 97 MEQ/L 99 MEQ/L Carbon Dioxide Level 22.5 MEQ/L 21.5 MEQ/L Anion Gap 11 MEQ/L 10 MEQ/L Estimat Glomerular Filtration Rate 79 ML/MIN 83 ML/MIN Ammonia 21 MCMOL/L Blood Gas Puncture Site RT RADIAL Blood Gas Patient Temperature 98.6 Blood Gas HCO3 22 mmol/L Blood Gas Base Excess -1.2 mmol/L Blood Gas Oxygen Saturation 89 % Arterial Blood pH 7.45 Arterial Blood Partial Pressure CO2 33 mmHg Arterial Blood Partial Pressure O2 59 mmHg Arterial Blood Oxygen Content 11.1 Vol % Arterial Blood Carboxyhemoglobin 1.4 % Arterial Blood Methemoglobin 0.9 % Blood Gas Hemoglobin 8.9 G/DL Oxygen Delivery Device NASAL CANNULA Blood Gas Liter Flow 4 L/M Lactic Acid Level 1.1 mmol/L Test 01/06/18 19:42 01/06/18 21:44 01/06/18 21:45 01/06/18 22:17 Blood Gas Puncture Site ART LINE Blood Gas Patient Temperature 98.6 98.6 Blood Gas HCO3 22 mmol/L 23 mmol/L Blood Gas Base Excess -2.4 mmol/L -1.8 mmol/L Blood Gas Oxygen Saturation 98 % 98 % Arterial Blood pH 7.36 7.38 Arterial Blood Partial Pressure CO2 41 mmHg 39 mmHg Arterial Blood Partial Pressure O2 359 mmHg 380 mmHg Arterial Blood Oxygen Content 12.2 Vol % 12.5 Vol % Arterial Blood Carboxyhemoglobin 1.0 % 0.8 % Arterial Blood Methemoglobin 1.0 % 1.3 % Blood Gas Hemoglobin 8.2 G/DL 8.4 G/DL Oxygen Delivery Device VENTILATOR VENTILATOR Blood Gas Ventilator Setting [id number]/AC17/500/ OR SETTINGS Blood Gas Inspired Oxygen 100 % 93 % White Blood Count 15.8 TH/MM3 18.3 TH/MM3 Red Blood Count 2.09 MIL/MM3 2.14 MIL/MM3 Hemoglobin 6.6 GM/DL 6.8 GM/DL Hematocrit 19.0 % 19.4 % Mean Corpuscular Volume 90.6 FL 90.9 FL Mean Corpuscular Hemoglobin 31.5 PG 31.8 PG Mean Corpuscular Hemoglobin Concent 34.8 % 35.0 % Red Cell Distribution Width 13.8 % 13.6 % Platelet Count 81 TH/MM3 93 TH/MM3 Mean Platelet Volume 9.5 FL 9.7 FL Prothrombin Time 12.6 SEC Prothromb Time International Ratio 1.2 RATIO Activated Partial Thromboplast Time 24.5 SEC Fibrinogen 429 mg/dL Blood Urea Nitrogen 24 MG/DL Creatinine 0.82 MG/DL Random Glucose 122 MG/DL Total Protein 5.6 GM/DL Calcium Level 6.8 MG/DL Sodium Level 135 MEQ/L Potassium Level 4.2 MEQ/L Chloride Level 104 MEQ/L Carbon Dioxide Level 24.2 MEQ/L Anion Gap 7 MEQ/L Estimat Glomerular Filtration Rate 93 ML/MIN Protein Corrected Calcium 7.6 MG/DL Test 01/06/18 23:40 01/07/18 01:10 01/07/18 02:12 01/07/18 02:25 White Blood Count 26.1 TH/MM3 Red Blood Count 2.85 MIL/MM3 Hemoglobin 8.7 GM/DL 8.1 GM/DL Hematocrit 24.9 % 23.2 % Mean Corpuscular Volume 87.4 FL Mean Corpuscular Hemoglobin 30.5 PG Mean Corpuscular Hemoglobin Concent 34.9 % Red Cell Distribution Width 15.5 % Platelet Count 120 TH/MM3 101 TH/MM3 Mean Platelet Volume 9.3 FL Blood Gas Puncture Site ART LINE Blood Gas Patient Temperature 98.6 Blood Gas HCO3 21 mmol/L Blood Gas Base Excess -2.6 mmol/L Blood Gas Oxygen Saturation 97 % Arterial Blood pH 7.42 Arterial Blood Partial Pressure CO2 34 mmHg Arterial Blood Partial Pressure O2 233 mmHg Arterial Blood Oxygen Content 12.9 Vol % Arterial Blood Carboxyhemoglobin 1.5 % Arterial Blood Methemoglobin 1.3 % Blood Gas Hemoglobin 9.1 G/DL Oxygen Delivery Device VENTILATOR Blood Gas Ventilator Setting PER ANESTHESIA Blood Gas Inspired Oxygen 56 % Test 01/07/18 03:45 01/07/18 05:42 Blood Urea Nitrogen 23 MG/DL Creatinine 0.86 MG/DL Random Glucose 180 MG/DL Total Protein 5.0 GM/DL Albumin 1.5 GM/DL Calcium Level 7.2 MG/DL Alkaline Phosphatase 151 U/L Aspartate Amino Transf (AST/SGOT) 34 U/L Alanine Aminotransferase (ALT/SGPT) 23 U/L Total Bilirubin 2.6 MG/DL Sodium Level 135 MEQ/L Potassium Level 4.8 MEQ/L Chloride Level 102 MEQ/L Carbon Dioxide Level 26.1 MEQ/L Anion Gap 7 MEQ/L Estimat Glomerular Filtration Rate 88 ML/MIN Protein Corrected Calcium 8.3 MG/DL White Blood Count 18.2 TH/MM3 Red Blood Count 2.76 MIL/MM3 Hemoglobin 8.6 GM/DL Hematocrit 24.2 % Mean Corpuscular Volume 87.5 FL Mean Corpuscular Hemoglobin 31.3 PG Mean Corpuscular Hemoglobin Concent 35.8 % Red Cell Distribution Width 15.5 % Platelet Count 97 TH/MM3 Mean Platelet Volume 9.0 FL Neutrophils (%) (Auto) 88.0 % Lymphocytes (%) (Auto) 4.0 % Monocytes (%) (Auto) 7.8 % Eosinophils (%) (Auto) 0.1 % Basophils (%) (Auto) 0.1 % Neutrophils # (Auto) 16.0 TH/MM3 Lymphocytes # (Auto) 0.7 TH/MM3 Monocytes # (Auto) 1.4 TH/MM3 Eosinophils # (Auto) 0.0 TH/MM3 Basophils # (Auto) 0.0 TH/MM3 CBC Comment AUTO DIFF Differential Total Cells Counted 100 Neutrophils % (Manual) 91 % Lymphocytes % 3 % Monocytes % 3 % Neutrophils # (Manual) 17.1 TH/MM3 Myelocytes 3 % Differential Comment FINAL DIFF MANUAL Toxic Granulation 1+ Toxic Vacuolation PRESENT Dohle Bodies PRESENT Platelet Estimate LOW Platelet Morphology Comment NORMAL (Tigre Estrada) Medical Decision Making Impression and Plan Impression: 1. Severe progressive paraplegia. Although he has significant spinal stenosis in the cervical thoracic and lumbar region, his overall presentation and exam suggests that the lumbar stenosis is the immediate cause of his severe lower extremity deficit, positive cauda equina syndrome. 2. Possible sepsis 3. Acute kidney disease 4. 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 Severe lumbar canal stenosis 2. Cauda equina syndrome 3. Cervical degenerative disease with severe stenosis and myelopathy 4. Thoracic disc disease with severe canal stenosis and myelopathy 5. Sepsis 6. Thrombocytopenia 7. Acute kidney disease Postoperative Diagnosis : (1) Cervical disc disease with myelopathy (2) Thoracic disc disease with myelopathy Respiratory insufficiency, CXR w/LLL consolidation. Ileus suggested by abdominal x-ray . Patient critical. He is obtunded but sedated and remains intubated & mechanically ventilated. There is no response to any stimulation. T max 102.4 yesterday evening. Intermittently elevated SBP. Tachycardia & tachypnea resolved. Cervical GUIDO drain with 60 mL output & medial back with 50 mL output since surgery as of shift change this morning. Reviewed labs for today. Decrease in leukocytosis but increase in haemoglobin level. Mild worsening of thrombocytopenia. Sodium 135. Improvement in eGFR from yesterday morning but drop from last night. Improvement in alk phos. Blood cultures () no growth x2d. Wound culture () positive for Escherichia coli. Blood cultures ( & ) positive for Escherichia coli. Urine culture () positive for Escherichia coli. MRI brain () unremarkable. MRI cervical spine () w/spinal stenosis, no definite cord edema noted but significant cord flattening at multiple levels. MRI thoracic spine () w/multilevel cord compression due to disc protrusions. Cord compression at T10 level due to midline fluid collection. Right parasagittal subcutaneous fluid collection at T10 & T11, abscess suspected. CT chest () w/o abscess identified outside the thoracic spine. Small bilateral pleural effusions. CT abdomen & pelvis () demonstrates multiple lumbar laminectomy defects w/locules of air in the canal & L2 vertebral body which could be r/t infection, cannot exclude abscess formation w/i the canal. Horseshoe kidney w/ nonobstructing calculi bilaterally. Diffuse ileus. Small effusions & mild anasarca. MRI lumbar spine () demonstrated extensive surgical changes. There is a 1.4 cm midline cystic structure just posterior of the thecal sac not clearly present previously which may represent a small seroma which could result in central spinal stenosis. Severe narrowing of the right L4-5 neural foramen w/ almost certain right L4 nerve root compromise. POD #4 () s/p: 1. Bilateral L1-2, L2-3, L3 4, L4 5 decompressive semi-laminectomy, medial facetectomy for spinal canal decompression. POD #0 (-06): Procedure number 1. C2-C6 decompressive laminectomy Procedure number 2,Via separate incision: T2-T6 decompressive laminectomy Plan: Discussed patient w/Nursing. Primary & critical care management per Chair Upholsterer. Neuro checks. Turn patient q2h but keep the patient off of his back. Physical & Occupational Therapy eval & tx. Hold pharmacologic DVT prophylaxis. Mechanical DVT prophylaxis. Patient will return to the operating room when haemodynamically stable for completion of the lower thoracic decompression with evacuation possible epidural abscess, and revision lumbar decompression procedures. (Tigre Estrada) Attending Statement The exam, history, and the medical decision-making described in the above note were completed with the assistance of the mid-level provider. I reviewed and agree with the findings presented. I attest that I had a [id number] encounter with the patient on the same day, and personally performed and documented my assessment and findings in the medical record. Patient remains intubated postoperatively on 01/07/2018. Difficult to accurately assess examination due to intubation, sedation. Moderate drain output. Labs reviewed. Plan return to OR for part2 a plan to part cervical thoracic lumbar decompressive procedure. (Jerry Chakraborty MD) Tigre Estrada Jan 07, 2018 11:18 Jerry Chakraborty MD Jan 11, 2018 17:32
--- NOTE | 2018-01-07 11:23 | HHI.GIFU ---
Subjective Remarks Pt now intubated and mechanically ventilated On sedation NGT to REHAN (Evy Francisco) Objective Vitals I&O Vital Signs Date Time Temp Pulse Resp B/P (MAP) Pulse Ox O2 Delivery O2 Flow Rate FiO2 01/07/18 10:46 98 50 01/07/18 10:10 60 119/62 01/07/18 10:10 60 122/63 01/07/18 10:00 62 01/07/18 08:28 99 50 01/07/18 08:00 53 01/07/18 08:00 97.4 54 17 136/69 (91) 98 140/76 (97) 01/07/18 08:00 50 01/07/18 07:00 99 Mechanical Ventilator 50 01/07/18 04:00 97.8 77 18 136/71 (92) 98 131/65 (87) 01/07/18 04:00 50 01/07/18 03:18 98 50 01/06/18 21:25 100 100 01/06/18 20:30 60 01/06/18 20:00 102.4 128 18 156/77 (103) 183/74 (110) 01/06/18 19:45 Mechanical Ventilator 60 01/06/18 19:41 100 100 01/06/18 18:06 95 Venturi Mask 6.00 50 01/06/18 18:00 108 01/06/18 16:00 98.5 108 25 155/82 (106) 100 01/06/18 16:00 108 01/06/18 14:00 114 01/06/18 12:00 99.3 117 30 176/92 (120) 99 01/06/18 12:00 117 I/O 01/06/18 01/06/18 01/06/18 01/07/18 01/07/18 01/07/18 07:00 15:00 23:00 07:00 15:00 23:00 Intake Total 2740 ml 5015 ml Output Total 1500 ml 1100 ml 2010 ml Balance -1500 ml 1640 ml 3005 ml Intake Oral 240 ml IV Total 2500 ml 815 ml Other 4200 ml Output Urine Total 1500 ml 1100 ml 900 ml Gastric Drainage Total 0 ml Drainage Total 110 ml Estimated Blood Loss 1000 ml # Bowel Movements 0 0 0 Laboratory Laboratory Tests Test 01/06/18 11:12 01/06/18 11:56 01/06/18 12:35 01/06/18 19:42 Blood Urea Nitrogen 25 Creatinine 0.91 Random Glucose 126 Calcium Level 7.5 Sodium Level 130 Potassium Level 4.0 Chloride Level 99 Carbon Dioxide Level 21.5 Anion Gap 10 Estimat Glomerular Filtration Rate 83 Ammonia 21 Blood Gas Puncture Site RT RADIAL ART LINE Blood Gas Patient Temperature 98.6 98.6 Blood Gas HCO3 22 22 Blood Gas Base Excess -1.2 -2.4 Blood Gas Oxygen Saturation 89 98 Arterial Blood pH 7.45 7.36 Arterial Blood Partial Pressure CO2 33 41 Arterial Blood Partial Pressure O2 59 359 Arterial Blood Oxygen Content 11.1 12.2 Arterial Blood Carboxyhemoglobin 1.4 1.0 Arterial Blood Methemoglobin 0.9 1.0 Blood Gas Hemoglobin 8.9 8.2 Oxygen Delivery Device NASAL CANNULA VENTILATOR Blood Gas Liter Flow 4 Lactic Acid Level 1.1 Blood Gas Ventilator Setting [facility]/AC17/500/ Blood Gas Inspired Oxygen 100 Test 01/06/18 21:44 01/06/18 21:45 01/06/18 22:17 01/06/18 23:40 White Blood Count 15.8 18.3 26.1 Red Blood Count 2.09 2.14 2.85 Hemoglobin 6.6 6.8 8.7 Hematocrit 19.0 19.4 24.9 Mean Corpuscular Volume 90.6 90.9 87.4 Mean Corpuscular Hemoglobin 31.5 31.8 30.5 Mean Corpuscular Hemoglobin Concent 34.8 35.0 34.9 Red Cell Distribution Width 13.8 13.6 15.5 Platelet Count 81 93 120 Mean Platelet Volume 9.5 9.7 9.3 Prothrombin Time 12.6 Prothromb Time International Ratio 1.2 Activated Partial Thromboplast Time 24.5 Fibrinogen 429 Blood Urea Nitrogen 24 Creatinine 0.82 Random Glucose 122 Total Protein 5.6 Calcium Level 6.8 Sodium Level 135 Potassium Level 4.2 Chloride Level 104 Carbon Dioxide Level 24.2 Anion Gap 7 Estimat Glomerular Filtration Rate 93 Protein Corrected Calcium 7.6 Blood Gas Puncture Site Blood Gas Patient Temperature 98.6 Blood Gas HCO3 23 Blood Gas Base Excess -1.8 Blood Gas Oxygen Saturation 98 Arterial Blood pH 7.38 Arterial Blood Partial Pressure CO2 39 Arterial Blood Partial Pressure O2 380 Arterial Blood Oxygen Content 12.5 Arterial Blood Carboxyhemoglobin 0.8 Arterial Blood Methemoglobin 1.3 Blood Gas Hemoglobin 8.4 Oxygen Delivery Device VENTILATOR Blood Gas Ventilator Setting OR SETTINGS Blood Gas Inspired Oxygen 93 Test 01/07/18 01:10 01/07/18 02:12 01/07/18 02:25 01/07/18 03:45 Hemoglobin 8.1 Hematocrit 23.2 Platelet Count 101 Blood Gas Puncture Site ART LINE Blood Gas Patient Temperature 98.6 Blood Gas HCO3 21 Blood Gas Base Excess -2.6 Blood Gas Oxygen Saturation 97 Arterial Blood pH 7.42 Arterial Blood Partial Pressure CO2 34 Arterial Blood Partial Pressure O2 233 Arterial Blood Oxygen Content 12.9 Arterial Blood Carboxyhemoglobin 1.5 Arterial Blood Methemoglobin 1.3 Blood Gas Hemoglobin 9.1 Oxygen Delivery Device VENTILATOR Blood Gas Ventilator Setting PER ANESTHESIA Blood Gas Inspired Oxygen 56 Blood Urea Nitrogen 23 Creatinine 0.86 Random Glucose 180 Total Protein 5.0 Albumin 1.5 Calcium Level 7.2 Alkaline Phosphatase 151 Aspartate Amino Transf (AST/SGOT) 34 Alanine Aminotransferase (ALT/SGPT) 23 Total Bilirubin 2.6 Sodium Level 135 Potassium Level 4.8 Chloride Level 102 Carbon Dioxide Level 26.1 Anion Gap 7 Estimat Glomerular Filtration Rate 88 Protein Corrected Calcium 8.3 Test 01/07/18 05:42 White Blood Count 18.2 Red Blood Count 2.76 Hemoglobin 8.6 Hematocrit 24.2 Mean Corpuscular Volume 87.5 Mean Corpuscular Hemoglobin 31.3 Mean Corpuscular Hemoglobin Concent 35.8 Red Cell Distribution Width 15.5 Platelet Count 97 Mean Platelet Volume 9.0 Neutrophils (%) (Auto) 88.0 Lymphocytes (%) (Auto) 4.0 Monocytes (%) (Auto) 7.8 Eosinophils (%) (Auto) 0.1 Basophils (%) (Auto) 0.1 Neutrophils # (Auto) 16.0 Lymphocytes # (Auto) 0.7 Monocytes # (Auto) 1.4 Eosinophils # (Auto) 0.0 Basophils # (Auto) 0.0 CBC Comment AUTO DIFF Differential Total Cells Counted 100 Neutrophils % (Manual) 91 Lymphocytes % 3 Monocytes % 3 Neutrophils # (Manual) 17.1 Myelocytes 3 Differential Comment FINAL DIFF MANUAL Toxic Granulation 1+ Toxic Vacuolation PRESENT Dohle Bodies PRESENT Platelet Estimate LOW Platelet Morphology Comment NORMAL Date/Time Source Procedure Growth Status 01/05/18 04:00 Blood Peripheral Aerobic Blood Culture - Preliminary NO GROWTH IN 2 DAYS Resulted 01/05/18 04:00 Blood Peripheral Anaerobic Blood Culture - Preliminary NO GROWTH IN 2 DAYS Resulted 01/02/18 23:35 Urine Clean Catch Urine Culture - Final Escherichia Coli Complete 01/03/18 07:20 Wound Back Fungal Smear - Final NO FUNGAL ELEMENTS SEEN. Resulted 01/03/18 07:20 Wound Back Fungal Culture Pending Resulted Imaging Last Impressions Abdomen X-Ray 01/07/18 0600 Signed Impressions: Service Date/Time: Sunday, January 07, 2018 03:50 - CONCLUSION: Diffuse gas filled distention of colon and small bowel again likely representing ileus. No significant interval change. Nasogastric tube is in place. Marcial Redmond MD Thoracic Spine X-Ray 01/07/18 0000 Signed Impressions: Service Date/Time: January 22:52 - CONCLUSION: Single AP intraoperative image for localization. Marcial Redmond MD Thoracic Spine MRI 01/06/18 0000 Signed Impressions: Service Date/Time: January 14:23 - CONCLUSION: 1. Multilevel cord compression is due predominantly to multiple disc protrusions. Significant cord compression is present at least 6 levels. There is also cord compression posteriorly at the T10 level due to a fluid collection in the midline which measures 6 mm in AP dimension. 2. There is also focal subcutaneous right parasagittal fluid collection at T10 and T11 which does not demonstrate peripheral contrast enhancement. An abscess is suspected. Jagjit Wilkinson MD Chest X-Ray 01/06/18 0000 Signed Impressions: Service Date/Time: January 20:20 - CONCLUSION: 1. Endotracheal tube tip in proximal right mainstem bronchus. This should be withdrawn about 3 cm. Nasogastric tube in stomach. 2. Left central line tip not well visualized but probably in brachiocephalic vein. Frederick Rizzo MD Chest CT 01/06/18 0000 Signed Impressions: Service Date/Time: January 18:51 - CONCLUSION: 1. No abscess identified outside of the thoracic spinal canal. Small bilateral pleural effusions. NG coiled in the stomach. Frederick Rizzo MD Cervical Spine MRI 01/06/18 0000 Signed Impressions: Service Date/Time: January 14:23 - CONCLUSION: 1. Severe degenerative changes with severe spinal stenosis at C2-3, C3-4, C4-5 and C5-6. There is moderate spinal stenosis at C6-7 and C7-T1. Overall assessment of the cord is limited due to motion artifact. I do not definitively see edema within the cord however there is significant flattening of the cord at multiple levels. 2. No significant abnormal contrast enhancement identified. Leonardo Sorenson MD Brain MRI 01/06/18 0000 Signed Impressions: Service Date/Time: January 14:23 - CONCLUSION: 1. Negative MRI of the brain with and without contrast. Jagjit Wilkinson MD Abdomen/Pelvis CT 01/06/18 0000 Signed Impressions: Service Date/Time: January 18:51 - CONCLUSION: 1. Multiple laminectomy defects in the lumbar spine with some locules of air both within the canal and within the L2 vertebral body which could be related to infection. Cannot exclude abscess formation within the canal. 2. 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 3. Diffuse ileus. 4. Small effusions and mild anasarca. 5. Reyna catheter in decompressed bladder. NG coiled in stomach. Frederick Rizzo MD Lumbar Spine MRI 01/05/18 0000 Signed Impressions: Service Date/Time: Friday, January 05, 2018 14:27 - CONCLUSION: 1. Extensive postsurgical changes with apparent left decompressive laminectomy leftward from L1 to through L4-5. 2. There is a well-circumscribed 1.4 cm cystic structure midline just posterior to the thecal sac at L4-5 which was not clearly present previously. May represent a small seroma which could result in some degree of central spinal stenosis despite the left laminectomy. 3. In addition, severe narrowing of the right L4-5 neural foramen with almost certain compromise of the right L4 nerve root. 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 no BM in 4 d and last BM scant. On pain meds. KUB 4/4 mildly prominent loops small and large bowel, suggestive ileus. d/w attending - anemia - likely multifactorial HH stable - elevated LFTs - unclear etiology...DILI vs sepsis vs other etiology. hep panel neg. - leukocytosis - poss epidural abscess, bacteremia, ID following - urosepsis, spinal cord compression s/p decompression, VALENCIA, thrombocytopenia, - per attending. ID, urology following (01/07) Change in clinical condition overnight. Respiratory distress and bilateral lower extremity weakness with progressive weakness of upper extremities. Pt was intubated and taken to OR for C2-C6 decompressive laminectomy and T2-T6 decompressive laminectomy. Pt remains on sedation and mechanically ventilated. Per RN pt had no response to Relistor. NG was placed yesterday, clamped most of the night for surgery, currently to LIWS with 50 mL of output. Abdomen continues to be distended but seems more soft today. No BMs. Bowel sounds active. Possible neurogenic component to ileus. KUB (01/07) Diffuse gas filled distention of colon and small bowel again likely representing ileus. No significant interval change. NG in place. Significant drop in H/H last night down to 6.6/19, currently 8.6/24.2 Thrombocytopenia noted- plts 97. 2 U plts transfused last night Elevated LFTs- AST and ALT WNL. Alk phos trending down. T bili-2.6. CT abdomen and pelvis W IV contrast (01/06) --> Diffuse ileus. Small effusions and mild anasarca. NG coiled in stomach. PLAN - NGT to LIWS - Monitor stool count - Reglan - If no improvement, can do rectal tube to gravity - Repeat KUB in AM - Further recommendations based on clinical course Pt has been seen and examined by myself and Dr. 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 S/p back surgery earlier today. Trial of Mag citrate 300cc through peg. ? decompression colonoscopy . Repeat kub. (Mackenzie Huang MD) Evy Francisco Jan 07, 2018 11:23 Mackenzie Huang MD Jan 07, 2018 16:03
[2018-01-07] MEDS ORDERED: NORMOSOL R INJ 2,000 ML IV ONE (12:00)
[2018-01-07] MEDS ORDERED: LIDOCAINE HCL 1% PF 5 ML SYRINGE OTHER ONE (12:00)
[2018-01-07] MEDS ORDERED: PROPOFOL 200 MG/20 ML AMP IV ONE (12:00)
[2018-01-07] MEDS ORDERED: LACTATED RINGER'S 1000 ML INJ 2,000 ML IV ONE (12:00)
--- NOTE | 2018-01-07 13:21 | PD.ONC.PN ---
Subjective Subjective Remarks Tmax 102F overnight. Patient intubated, sedated. Objective Data Date Time Temp Pulse Resp B/P (MAP) Pulse Ox O2 Delivery O2 Flow Rate FiO2 01/07/18 10:46 98 50 01/07/18 10:10 60 119/62 01/07/18 10:10 60 122/63 01/07/18 10:00 62 01/07/18 08:28 99 50 01/07/18 08:00 53 01/07/18 08:00 97.4 54 17 136/69 (91) 98 140/76 (97) 01/07/18 08:00 50 01/07/18 07:00 99 Mechanical Ventilator 50 01/07/18 04:00 97.8 77 18 136/71 (92) 98 131/65 (87) 01/07/18 04:00 50 01/07/18 03:18 98 50 01/06/18 21:25 100 100 01/06/18 20:30 60 01/06/18 20:00 102.4 128 18 156/77 (103) 183/74 (110) 01/06/18 19:45 Mechanical Ventilator 60 01/06/18 19:41 100 100 01/06/18 18:06 95 Venturi Mask 6.00 50 01/06/18 18:00 108 01/06/18 16:00 98.5 108 25 155/82 (106) 100 01/06/18 16:00 108 01/06/18 14:00 114 01/07/18 01/07/18 01/07/18 07:00 15:00 23:00 Intake Total 5015 ml Output Total 2010 ml Balance 3005 ml Result Diagram: 01/07/18 0542 01/07/18 0345 Laboratory Results Laboratory Tests Test 01/06/18 19:42 01/06/18 21:44 01/06/18 21:45 01/06/18 22:17 Blood Gas Puncture Site ART LINE Blood Gas Patient Temperature 98.6 98.6 Blood Gas HCO3 22 mmol/L 23 mmol/L Blood Gas Base Excess -2.4 mmol/L -1.8 mmol/L Blood Gas Oxygen Saturation 98 % 98 % Arterial Blood pH 7.36 7.38 Arterial Blood Partial Pressure CO2 41 mmHg 39 mmHg Arterial Blood Partial Pressure O2 359 mmHg 380 mmHg Arterial Blood Oxygen Content 12.2 Vol % 12.5 Vol % Arterial Blood Carboxyhemoglobin 1.0 % 0.8 % Arterial Blood Methemoglobin 1.0 % 1.3 % Blood Gas Hemoglobin 8.2 G/DL 8.4 G/DL Oxygen Delivery Device VENTILATOR VENTILATOR Blood Gas Ventilator Setting [facility]/AC17/500/ OR SETTINGS Blood Gas Inspired Oxygen 100 % 93 % White Blood Count 15.8 TH/MM3 18.3 TH/MM3 Red Blood Count 2.09 MIL/MM3 2.14 MIL/MM3 Hemoglobin 6.6 GM/DL 6.8 GM/DL Hematocrit 19.0 % 19.4 % Mean Corpuscular Volume 90.6 FL 90.9 FL Mean Corpuscular Hemoglobin 31.5 PG 31.8 PG Mean Corpuscular Hemoglobin Concent 34.8 % 35.0 % Red Cell Distribution Width 13.8 % 13.6 % Platelet Count 81 TH/MM3 93 TH/MM3 Mean Platelet Volume 9.5 FL 9.7 FL Prothrombin Time 12.6 SEC Prothromb Time International Ratio 1.2 RATIO Activated Partial Thromboplast Time 24.5 SEC Fibrinogen 429 mg/dL Blood Urea Nitrogen 24 MG/DL Creatinine 0.82 MG/DL Random Glucose 122 MG/DL Total Protein 5.6 GM/DL Calcium Level 6.8 MG/DL Sodium Level 135 MEQ/L Potassium Level 4.2 MEQ/L Chloride Level 104 MEQ/L Carbon Dioxide Level 24.2 MEQ/L Anion Gap 7 MEQ/L Estimat Glomerular Filtration Rate 93 ML/MIN Protein Corrected Calcium 7.6 MG/DL Test 01/06/18 23:40 01/07/18 01:10 01/07/18 02:12 01/07/18 02:25 White Blood Count 26.1 TH/MM3 Red Blood Count 2.85 MIL/MM3 Hemoglobin 8.7 GM/DL 8.1 GM/DL Hematocrit 24.9 % 23.2 % Mean Corpuscular Volume 87.4 FL Mean Corpuscular Hemoglobin 30.5 PG Mean Corpuscular Hemoglobin Concent 34.9 % Red Cell Distribution Width 15.5 % Platelet Count 120 TH/MM3 101 TH/MM3 Mean Platelet Volume 9.3 FL Blood Gas Puncture Site ART LINE Blood Gas Patient Temperature 98.6 Blood Gas HCO3 21 mmol/L Blood Gas Base Excess -2.6 mmol/L Blood Gas Oxygen Saturation 97 % Arterial Blood pH 7.42 Arterial Blood Partial Pressure CO2 34 mmHg Arterial Blood Partial Pressure O2 233 mmHg Arterial Blood Oxygen Content 12.9 Vol % Arterial Blood Carboxyhemoglobin 1.5 % Arterial Blood Methemoglobin 1.3 % Blood Gas Hemoglobin 9.1 G/DL Oxygen Delivery Device VENTILATOR Blood Gas Ventilator Setting PER ANESTHESIA Blood Gas Inspired Oxygen 56 % Test 01/07/18 03:45 01/07/18 05:42 Blood Urea Nitrogen 23 MG/DL Creatinine 0.86 MG/DL Random Glucose 180 MG/DL Total Protein 5.0 GM/DL Albumin 1.5 GM/DL Calcium Level 7.2 MG/DL Alkaline Phosphatase 151 U/L Aspartate Amino Transf (AST/SGOT) 34 U/L Alanine Aminotransferase (ALT/SGPT) 23 U/L Total Bilirubin 2.6 MG/DL Sodium Level 135 MEQ/L Potassium Level 4.8 MEQ/L Chloride Level 102 MEQ/L Carbon Dioxide Level 26.1 MEQ/L Anion Gap 7 MEQ/L Estimat Glomerular Filtration Rate 88 ML/MIN Protein Corrected Calcium 8.3 MG/DL White Blood Count 18.2 TH/MM3 Red Blood Count 2.76 MIL/MM3 Hemoglobin 8.6 GM/DL Hematocrit 24.2 % Mean Corpuscular Volume 87.5 FL Mean Corpuscular Hemoglobin 31.3 PG Mean Corpuscular Hemoglobin Concent 35.8 % Red Cell Distribution Width 15.5 % Platelet Count 97 TH/MM3 Mean Platelet Volume 9.0 FL Neutrophils (%) (Auto) 88.0 % Lymphocytes (%) (Auto) 4.0 % Monocytes (%) (Auto) 7.8 % Eosinophils (%) (Auto) 0.1 % Basophils (%) (Auto) 0.1 % Neutrophils # (Auto) 16.0 TH/MM3 Lymphocytes # (Auto) 0.7 TH/MM3 Monocytes # (Auto) 1.4 TH/MM3 Eosinophils # (Auto) 0.0 TH/MM3 Basophils # (Auto) 0.0 TH/MM3 CBC Comment AUTO DIFF Differential Total Cells Counted 100 Neutrophils % (Manual) 91 % Lymphocytes % 3 % Monocytes % 3 % Neutrophils # (Manual) 17.1 TH/MM3 Myelocytes 3 % Differential Comment FINAL DIFF MANUAL Toxic Granulation 1+ Toxic Vacuolation PRESENT Dohle Bodies PRESENT Platelet Estimate LOW Platelet Morphology Comment NORMAL Culture Results Microbiology Date/Time Source Procedure Growth Status 01/05/18 04:00 Blood Peripheral Aerobic Blood Culture - Preliminary NO GROWTH IN 2 DAYS Resulted 01/05/18 04:00 Blood Peripheral Anaerobic Blood Culture - Preliminary NO GROWTH IN 2 DAYS Resulted 01/05/18 03:50 Blood Peripheral Aerobic Blood Culture - Preliminary NO GROWTH IN 2 DAYS Resulted 01/05/18 03:50 Blood Peripheral Anaerobic Blood Culture - Preliminary NO GROWTH IN 2 DAYS Resulted Imaging Studies Last 24 hours Impressions Abdomen X-Ray 01/07/18 0600 Signed Impressions: Service Date/Time: Sunday, January 07, 2018 03:50 - CONCLUSION: Diffuse gas filled distention of colon and small bowel again likely representing ileus. No significant interval change. Nasogastric tube is in place. Marcial Redmond MD Thoracic Spine X-Ray 01/07/18 0000 Signed Impressions: Service Date/Time: January 22:52 - CONCLUSION: Single AP intraoperative image for localization. Marcial Redmond MD Administered Medications Medications (Trade) Dose Ordered Sig/Kaveh Route PRN Reason Start Time Stop Time Status Last Admin Dose Admin Methocarbamol (Robaxin) 500 mg QID PO 01/03/18 09:00 01/07/18 12:23 Tamsulosin HCl (Flomax) 0.4 mg HS PO 01/03/18 21:00 01/05/18 20:12 Atorvastatin Calcium (Lipitor) 40 mg DAILY PO 01/03/18 09:00 01/07/18 09:52 Sodium Chloride (NS Flush) 2 ml BID IV FLUSH 01/03/18 09:00 01/06/18 20:46 Acetaminophen (Tylenol) 650 mg Q6H PRN PO PAIN 1-5 AND/OR FEVER >101F 01/03/18 05:00 01/05/18 10:28 Ondansetron HCl (Zofran Inj) 4 mg Q6H PRN IV PUSH NAUSEA OR VOMITING 01/03/18 05:00 01/05/18 15:50 Senna/Docusate Sodium (Roxana-Colace) 1 tab BID PO 01/03/18 09:00 01/07/18 09:52 Magnesium Hydroxide (Milk Of Magnesia Liq) 30 ml Q12H PRN PO Mild constipation 01/03/18 05:00 01/06/18 11:39 Lactulose (Lactulose Liq) 30 ml DAILY PRN PO SEVERE CONSITIPATION 01/03/18 05:00 01/06/18 11:39 Artificial Tears (Tears Naturale Opth Soln) 1 drop Q8HR EACH EYE 01/03/18 14:00 01/07/18 05:12 Famotidine (Pepcid) 20 mg BID PO 01/04/18 21:00 01/07/18 09:51 Potassium Chloride/Sodium Chloride 1,000 ml @ 125 mls/hr Q8H IV 01/05/18 12:30 01/07/18 03:48 Potassium Phos/ Sodium Phos (K-Phos Neutral) 250 mg Q6HR PO 01/05/18 18:00 01/07/18 12:23 Oxycodone HCl (Roxicodone) 10 mg Q6H PRN PO PAIN SCALE 5 TO 10 01/05/18 15:45 01/06/18 05:55 Morphine Sulfate (Morphine Inj) 2 mg Q4H PRN IV PUSH BREAKTHROUGH PAIN 01/05/18 15:45 01/06/18 15:41 Albuterol/ Ipratropium (Duoneb Neb) 1 ampule Q6HR NEB NEB 01/06/18 16:00 01/07/18 08:33 Ceftazidime 2000 mg/Sodium Chloride 100 ml @ 200 mls/hr Q8H IV 01/06/18 14:00 01/07/18 05:18 Metronidazole 100 ml @ 100 mls/hr Q8H IV 01/06/18 14:00 01/07/18 05:17 Vancomycin HCl 1500 mg/Sodium Chloride 515 ml @ 257.5 mls/ hr Q12H IV 01/06/18 16:00 01/07/18 03:47 Metoclopramide HCl (Reglan Inj) 10 mg Q8HR IM 01/06/18 22:00 01/06/18 21:01 Norepinephrine Bitartrate 4 mg/ Sodium Chloride 250 ml @ 7.5 mls/hr TITRATE PRN IV Blood pressure management 01/06/18 19:30 01/07/18 10:10 Vasopressin 40 units/Dextrose 100 ml @ 1.5 mls/hr Q24H IV 01/06/18 19:19 01/07/18 10:10 Propofol 100 ml @ 2.826 mls/ hr TITRATE PRN IV SEDATION 01/06/18 19:30 01/07/18 12:25 Fentanyl Citrate 250 ml @ 5 mls/hr TITRATE PRN IV SEDATION 01/06/18 19:30 01/07/18 10:09 Hydrocortisone Sodium Succinate (SoluCORTEF INJ) 100 mg Q8H IV PUSH 01/06/18 20:00 01/07/18 12:23 Objective Remarks GENERAL: Intubated, sedated male, supine in bed. SKIN: Warm and dry. HEAD: Normocephalic NECK: Supple, trachea midline. CARDIOVASCULAR: +S1/S2 RESPIRATORY: anterior pederson clear. GASTROINTESTINAL: Abdomen soft, non-tender, nondistended. EXTREMITIES: No cyanosis NEUROLOGICAL: intubated, sedated Assessment/Plan Problem List: (1) Thrombocytopenia ICD Codes: D69.6 - Thrombocytopenia, unspecified Plan: 01/07: platelets 97K today. hematology will sign off. please call or reconsult if needed. --keep platelets greater than 50K post-surgery. no transfusion needed today. --likely d/t sepsis (2) Sepsis ICD Codes: A41.9 - Sepsis, unspecified organism Plan: --on antibiotics --ID following. (3) Lumbar canal stenosis ICD Codes: M48.061 - Spinal stenosis, lumbar region without neurogenic claudication Plan: --neurosurgery, Dr. Chakraborty following. --s/p laminectomy Assessment 67y/o male with thrombocytopenia admitted with sepsis, spinal stenosis, leg weakness. Now s/p emergent lumbar laminectomy history of BPH, hypothyroidism, depression, kidney stones, hypercholesterolemia. Attending Statement The exam, history, and the medical decision-making described in the above note were completed with the assistance of the mid-level provider. I reviewed and agree with the findings presented. I attest that I had a [id number] encounter with the patient on the same day, and personally performed and documented my assessment and findings in the medical record. Pt is intubated and sedated. Plat 97 K . Thrombocytopenia is due to sepsis. continue treatment of sepsis. Sign off available prn. Problem Qualifiers (1) Lumbar canal stenosis: Qualified Codes: M48.061 - Spinal stenosis, lumbar region without neurogenic claudication Dulce Loredo Jan 07, 2018 13:21 Terri Doran MD Jan 07, 2018 13:31
[2018-01-07] MEDS ORDERED: LIDOCAINE 1%/EPINEPHrine 1:100,000 SOLN 30 ML VIAL ONE (15:48)
[2018-01-07] MEDS ORDERED: GELFOAM SIZE 100 ONE (15:48)
[2018-01-07] MEDS ORDERED: THROMBIN (TOPICAL) 5,000 UNIT VIAL ONE (15:48)
[2018-01-07] MEDS ORDERED: BUPIVACAINE HCL PF 0.25% 30 ML VIAL ONE ×2 (15:49→15:51)
[2018-01-07] MEDS ORDERED: GENTAMICIN SULFATE 80 MG/2 ML VIAL ONE ×2 (15:49→16:23)
[2018-01-07] MEDS ORDERED: BUPIVACAINE LIPOSOME PF 1.3% 20 ML VIAL ONE (15:51)
--- NOTE | 2018-01-07 16:19 | HHI.CCPN ---
Subjective Remarks/Hospital Course 67-year-old male who underwent a prostate biopsy one week ago, on 12/27/17. On the evening of 12/29/17 he developed fever and chills, low back pain, and lower extremity numbness and paresthesias and muscle spasm. He was seen by his primary care physician and was given medication including muscle relaxant. The symptoms persisted and he returned to his primary care physician on Wednesday, and was given additional medications including Cipro. He awoke on 01/02/2018 with increased lower extremity weakness and numbness, and fell in the shower in the morning, after which he was unable to ambulate or lift his legs off the bed, and continued to experience pain in the lower back. He went to the emergency room at [facility], and was given additional medication injections. He could not lift his legs off the bed or ambulate in the emergency room, and was taken out to his car and lifted into the car and sent home again. He fell in the driveway again trying to get back into the house. He apparently did not urinate for the entire day. He has no complaint of pain which is numbness paresthesias in the upper extremities. No numbness or paresthesias over the chest or abdomen or pelvic region. The MRI of thoracic spine shows severe canal stenosis at T2-3 and T5-6 level with cord compressions, complete or near complete canal obliteration at L2 -3 L3-4 and severe multilevel canal stenosis of the C-spine. The patient is emergently taken to operating room by Dr. Chakraborty. Subjective 01/04: Extubated late afternoon yesterday without any complications. Some sensation bilateral lower extremities. Strength 4-5 bilateral upper extremities. Afebrile. Hemodynamically stable. 01/06: RECONSULT NOTE: reconsulted for respiratory distress. in brief, 67yM with recent prostate biopsy complicated by e. coli bacteremia and lumbar epidural abscess. he was stable and sent to the floor where he developed respiratory distress, fever, tachycardia, tachypnea, diaphoresis. on my exam, patient is in distress, appears toxic. repeat MRI spine demonstrates fluid collections and evidence of spinal compression in cervical, thoracic, and lumbar spinal areas concerning for rapidly ascending abscess with neurologic compromise. also, patient was weak in b/l LEs overnight and now is nearly a complete quad, with only 3/5 distal upper extremity strength left and 1/5 proximal upper extremity strength. 01/07: Persistent septic course. Unable to wean from mechanical ventilation. Infectious Disease service is guiding antimicrobial therapy. Objective Vital Signs Date Time Temp Pulse Resp B/P (MAP) Pulse Ox O2 Delivery O2 Flow Rate FiO2 01/07/18 14:00 55 01/07/18 12:00 50 01/07/18 12:00 97.8 17 118/60 (79) 99 116/61 (79) 01/07/18 07:00 Mechanical Ventilator 01/06/18 18:06 6.00 Intake and Output 01/07/18 01/07/18 01/08/18 08:00 16:00 00:00 Intake Total 5015 ml Output Total 2010 ml Balance 3005 ml Result Diagram: 01/07/18 0542 01/07/18 0345 Other Results Laboratory Tests Test 01/06/18 19:42 01/06/18 21:45 01/07/18 02:25 Blood Gas Puncture Site ART LINE ART LINE Blood Gas Patient Temperature 98.6 98.6 98.6 Blood Gas HCO3 22 mmol/L (22-26) 23 mmol/L (22-26) 21 mmol/L (22-26) Blood Gas Base Excess -2.4 mmol/L (-2-2) -1.8 mmol/L (-2-2) -2.6 mmol/L (-2-2) Blood Gas Oxygen Saturation 98 % (90-100) 98 % (90-100) 97 % (90-100) Arterial Blood pH 7.36 (7.380-7.420) 7.38 (7.380-7.420) 7.42 (7.380-7.420) Arterial Blood Partial Pressure CO2 41 mmHg (38-42) 39 mmHg (38-42) 34 mmHg (38-42) Arterial Blood Partial Pressure O2 359 mmHg (61-120) 380 mmHg (61-120) 233 mmHg (61-120) Arterial Blood Oxygen Content 12.2 Vol % (12.0-20.0) 12.5 Vol % (12.0-20.0) 12.9 Vol % (12.0-20.0) Arterial Blood Carboxyhemoglobin 1.0 % (0-4) 0.8 % (0-4) 1.5 % (0-4) Arterial Blood Methemoglobin 1.0 % (0-2) 1.3 % (0-2) 1.3 % (0-2) Blood Gas Hemoglobin 8.2 G/DL (12.0-16.0) 8.4 G/DL (12.0-16.0) 9.1 G/DL (12.0-16.0) Oxygen Delivery Device VENTILATOR VENTILATOR VENTILATOR Blood Gas Ventilator Setting PRVC/AC17/500/ OR SETTINGS PER ANESTHESIA Blood Gas Inspired Oxygen 100 % 93 % 56 % Imaging Last Impressions Thoracic Spine MRI 01/03/18 0000 Signed Impressions: Service Date/Time: Wednesday, January 03, 2018 00:38 - CONCLUSION: Multilevel disc abnormalities. Severe canal stenosis at T2-3 and T5-6 with cord compression and mild signal changes in the cord at T2-3 and moderate signal changes within the cord at T5-6. Less severe changes at L2 additional levels as described. Harley Herrera MD Lumbar Spine MRI 01/03/18 0000 Signed Impressions: Service Date/Time: Wednesday, January 03, 2018 00:38 - CONCLUSION: Complete or near complete canal obliteration at L2-3, L3-4 and L4-5 with less severe compromise at L1-2 and T12-L1. Harley Herrera MD Cervical Spine MRI 01/03/18 0000 Signed Impressions: Service Date/Time: Wednesday, January 03, 2018 00:38 - CONCLUSION: Severe multilevel canal stenosis. Findings appear to be most critical at C4-5 and C5-6 where AP canal dimension is reduced to 4-5 mm, however also quite severe at C2-3 and C3-4. Harley Herrera MD Chest X-Ray 01/02/18 0943 Signed Impressions: Service Date/Time: Tuesday, January 02, 2018 23:11 - CONCLUSION: Mild basilar atelectasis or scarring. Harley Herrera MD Procedures L1 through L5 decompressive laminectomy. Objective Remarks GENERAL: 67-year-old male lying in bed, in acute distress, sedated, intubated. SKIN: diaphoretic. HEAD: Normocephalic. EYES: No scleral icterus. No injection or drainage. NECK: Supple, trachea midline. Orally intubated. CARDIOVASCULAR: tachycardic rate, regular rhythm. sinus. RESPIRATORY: equal chest rise. clear breath sounds. mechanically ventilated. GASTROINTESTINAL: Abdomen soft, mildly distended. nontender. no guarding. BS few. MUSCULOSKELETAL: No significant peripheral edema, well perfused limbs. BACK: Incision from laminectomy clean dry and intact NEURO EXAM: Heavily sedated, breathes over ventilator. A/P Assessment and Plan Assessment: 67-year-old male now postop day 3 status post lumbar laminectomy and decompression for epidural abscess who presents now with rapidly progressive spinal abscess with rapidly worsening myelopathy and neurologic function. It appears that the patient remains bacteremic and is very toxic in severe sepsis leading to septic shock and decompensating manner. Dr. Chakraborty, Dr. Charles, and myself had multiple conversations. This patient is very critically ill and is very likely not survive this illness. However, his only chance of meaningful recovery would be emergent decompression and washout. After discussion with the patient, and Dr. Chakraborty, we all agreed to proceed. I intubated the patient, see separate procedure notes for details, and placed arterial line and central line. We will continue broad-spectrum antibiotics and plan to have large volume blood product resuscitation available. Neuro/Psych: Postop day #4 Bilateral L1-2, L2-3, L3 4, L4 5 decompressive semi-laminectomy, medial facetectomy for spinal canal decompression. Depression/anxiety Ascending myelopathy Spinal abscess C-spine revealed cord compression C2 through C4 and C4 through C6. T-spine 2-3/ 5 6 and lumbar spine T throughout L2 with essentially ablation of the cord from L2 through L5. Status post emergent surgery per Dr. Chakraborty 4/2 Acetaminophen 650 mg p.o. every 6 hours as needed pain 1-5/fever Morphine sulfate 2 mg IV every 8 as needed pain 6 or 10 Neurochecks Propofol and fentanyl for goal RASS -2 all intubated Plan for emergent decompression of the C-spine and T-spine with washout. Likely going to be a staged procedure because he may not hemodynamically tolerate a entire spine decompression. CV: Dyslipidemia Severe sepsis Early septic shock Maintenance fluids at 125 cc/hr Not requiring vasopressors and/or antihypertensives Currently on atorvastatin 40 mg p.o. daily. Hospital substitution for rosuvastatin 20 mg p.o. daily Given rapidly declining status, we will plan to have norepinephrine and vasopressin available Given duration and severity of critical illness, will likely need stress dose steroids. Will start empirically with hydrocortisone 100 mg IV every 8 hours. Resp: Acute hypoxic hypercarbic respiratory failure Vent bundle Nebs Wean FiO2 for goal SPO2 greater than 90% No weaning of mechanical ventilation until shock improves and source control is contained Gas exchange acceptable. GI: Postoperative ileus NPO Place gastric tube to suction Likely ileus is multifactorial including severe sepsis and postoperative pain, likely compounded by myelopathy and there could be a neurogenic component to his ileus Famotidine for GI prophylaxis Docusate sodium/senna 1 tablet twice daily for bowel regimen GI consulted : BPH Maintain Reyna catheter Currently on tamsulosin 0.4 mg p.o. daily Recent prostate biopsy. Pathology pending Endo: Sliding scale insulin Accu-Cheks to maintain euglycemia/low regimen Renal: Acute kidney injury- improving Avoid nephrotoxic drugs Monitor urine output Accurate I's and O's Heme: Thrombocytopenia likely secondary to sepsis Anemia secondary to acute blood loss Haptoglobin high. LDH normal. Peripheral smear no signs of schistocytes total bilirubin normal. Status post 2 pack platelets 4/3. Followed by hematology 4 units packed red cells, 4 units FFP. ID: E. coli bacteremia E. coli spinal abscess ID consulted Broad-spectrum metabolic coverage Emergent decompression + washout FEN Replace electrolytes as clinically indicated MSK: Osteoporosis Holding meloxicam 7.5 mg p.o. twice daily. PT/OT evaluate and treat Access -4/5 left subclavian 9 [place] introducer sheath 4/5 left radial arterial line Reyna Prophylaxis -GI -famotidine -DVT -SCD/holding pharmacologic prophylaxis until acute neurosurgery/severe thrombocytopenia This patient remains critically ill with one or more organ systems which are or may become a threat to life. I have spent 40 minutes in the care and management of this patient. This time is exclusive of procedures, and includes , but is not limited to, evaluation of the patient, review of the medical record , discussions with family, consultants, nursing staff, or respiratory therapy, and documentation in the medical record. Vick Mayes MD Jan 07, 2018 16:19
[2018-01-07] MEDS ORDERED: PROPOFOL 500 MG/50 ML INJ 150 ML ONE (18:22)
[2018-01-07] MEDS: TAMSULOSIN HCL 0.4 MG CAP PO SCH (21:00)
[2018-01-08] VITALS (17 sets, daily range): BP systolic 112–182; BP diastolic 54–86; PULSE 52–94; RESP 14–17; TEMP 97.2–98.4; O2SAT 99–100
--- NOTE | 2018-01-08 01:31 | RADRPT ---
EXAM DATE/TIME: 01/07/2018 21:17 [facility] COMPARISON: SPINE THORACIC AP ONLY, January 06, 2018, 22:52. INDICATIONS : Level localization for T10-T12 laminectomy MEDICAL HISTORY : Benign prostatic hyperplasia, (BPH). Cord compression SURGICAL HISTORY : Prostate biopsy. Kidney biopsyProstate biopsy. Kidney biopsy ENCOUNTER: Initial ACUITY: 1 day PAIN SCORE: Non-responsive. LOCATION: Thoracic spine FINDINGS: 2 intraoperative AP views of the lower thoracic spine. Metallic surgical instrument is seen on one of the images over a lower thoracic vertebral body, likely T12. CONCLUSION: Intraoperative spot images of the thoracic spine for localization purposes. Marcial Redmond MD on January 08, 2018 at 1:29 Board Certified Radiologist. This report was verified electronically.
--- NOTE | 2018-01-08 01:32 | RADRPT ---
EXAM DATE/TIME: 01/07/2018 21:17 [facility] COMPARISON: MRI LUMBAR SPINE W & W/O CONTRAST, January 05, 2018, 14:27. INDICATIONS : Level localization for lumbar laminectomy revision MEDICAL HISTORY : Benign prostatic hyperplasia, (BPH). Cord compression SURGICAL HISTORY : Prostate biopsy. Kidney biopsy ENCOUNTER: Initial ACUITY: 1 day PAIN SCORE: Non-responsive. LOCATION: Lumbar spine FINDINGS: Single lateral intraoperative spot image of the lower lumbar spine with posterior metallic marker lik shara at L4-5. CONCLUSION: Single intraoperative spot image for localization purposes. Marcial Redmond MD on January 08, 2018 at 1:30 Board Certified Radiologist. This report was verified electronically.
[2018-01-08] MEDS: PROPOFOL 1000 MG/100 ML INJ 100 ML IV PRN ×6 (01:36→22:00)
--- NOTE | 2018-01-08 02:04 | PD.OP ---
Operative Report Date of Surgery: Jan 07, 2018 Preoperative Diagnosis: (1) Spinal epidural abscess (2) Thoracic disc disease with myelopathy (3) Lumbar canal stenosis 1. Spinal epidural abscess 2. Thoracic stenosis with myelopathy 3. Lumbar canal stenosis 4. Postoperative lumbar epidural hematoma Postoperative Diagnosis: (1) Spinal epidural abscess (2) Thoracic disc disease with myelopathy (3) Lumbar canal stenosis 1. Spinal epidural abscess 2. Thoracic stenosis with myelopathy 3. Lumbar canal stenosis 4. Postoperative lumbar epidural hematoma Procedure: Part 2 of planned two-part procedure. Procedure #1: 1. [id number] decompressive semi-laminectomy, evacuation thoracic epidural abscess 2. Evacuation thoracic epidural abscess. Procedure #2: Via separate incision. 1. Revision L2-3, L3 4, L4 5 decompressive semi-laminectomy 2. Evacuation lumbar epidural abscess 3. Evacuation of postoperative lumbar epidural hematoma Anesthesia: Gen. Surgeon: Jerry Chakraborty [employer] Forensics Analyst(s): Magalis Garcia Operation and Findings: Indications: 67-year-old male presenting with Escherichia coli sepsis, severe diffuse cervical, thoracic, lumbar stenosis, cervical and thoracic myelopathy, cauda equina syndrome. Status post previous lumbar followed by cervical and upper thoracic decompressive semi-laminectomy. Postoperative MRI imaging with contrast has revealed findings suggestive of T10-12 epidural abscess as well as possible lumbar epidural abscess formation. Following initial lumbar decompression patient has developed progressive upper extremity paresis prompting stage I of this planned 2 stage procedure which involved cervical and upper thoracic decompressive laminectomy, with subsequent lower thoracic laminectomy and revision lumbar laminectomy, evacuation epidural abscess and postoperative epidural hematoma planned as a stage II procedure due to significant blood loss during the initial part of the procedure. Procedure in detail: The patient was brought into the operating room and general endotracheal anesthesia induced without difficulty. ALYSON hose and sequential compression devices were placed. The Reyna catheter was placed. Lines were established by anesthesia. Leads for intraoperative neuro monitoring were placed and a baseline study obtained. The patient was positioned on the [facility] table with the side bolsters and all extremities appropriately padded. The [place] cervical collar was in place during positioning. Appropriate time-out procedure was performed with all personnel present and in agreement. Procedure 1: 1% Xylocaine with epinephrine was used for local infiltration over the incision site which was made at the midline T10-T12 level. The incision was carried sharply down to the deep fascia which was incised adjacent to the spinous processes on the left side. Marks elevator was used for subperiosteal elevation of paraspinous musculature and fascia away from the lamina and spinous process at the left T10-T12 level. The deep self-retaining retractor was placed. The appropriate levels were verified with intraoperative C-arm. Microscope was moved into place and used for the remainder of the procedure including the closure. The TPS drill with a 5 mm bone bur followed by the 4 mm elsy bur was used to remove the inferior two thirds of the T10 lamina and the superior aspect of the T12 lamina , and the entire left side and ventral aspect of the right side of the T 11 lamina, of the along with a moderate amount of the bilateral medial facet, taking care not to disrupt the integrity of the facet or pars intra- articularis. The hypertrophied ligamentum flavum at each level was elevated away from the thecal sac with the thin ligament dissector and resected with the 15 blade knife and the [place] rongeur out to the level of the deep lateral recess to completely decompress the thecal sac and exiting nerve roots. Upon removal of the ligamentum flavum, a moderate amount of purulent appearing material came forth from the epidural space. This was sent for routine microbiology culture specimen. The region was copiously irrigated with antibiotic irrigation until clear. The blunt nerve hook was used to palpate the ventral aspect of the epidural space taking care not to cause any significant compression on the thecal sac. The nerve roots and thecal sac appeared well decompressed at the end of the procedure. No spinal fluid leakage was encountered. Bleeding was carefully controlled with the bipolar forceps. A 7mm flat fluted drain was left in place at the operative site and brought out through an incision in the mid lumbar region and secured to the skin with nylon suture and attached to a bulb suction. The closure was performed with 0 Vicryl interrupted for the deep and superficial fascia, with 3-0 Vicryl interrupted subcutaneous closure, and amada for the skin closure. Procedure #2: The previous sutures at the existing midline lumbar spine incision were removed and the previous lumbar incision site reopened. There was a significant amount of firmly clotted epidural hematoma which appeared to be causing some compression against the thecal sac. This was carefully removed with gentle suction and irrigation and the [place] dissectors. During the initial procedure, significant bleeding along the epidural space prevented good visualization for resection of the tissue along the lateral recess. During this procedure, there was relatively little bleeding along the epidural space allowing further resection of hypertrophied ligament and osteophyte along the bilateral L2-3, L3 4, L4 5 levels. This was performed with the [place] rongeurs and the [place] dissectors. Once the additional decompression was achieved, the [place] dissector was used to probe along the ventral aspect of the L2-3 and L3 4 epidural space, at both levels a pocket of purulent material was encountered just caudal to the disc and annulus. This purulent material was cultured and then the region well irrigated with antibiotic irrigation. Bleeding was carefully controlled with the bipolar forceps. A 10 [place] drain was left in the operative site and brought out through an incision in the upper lumbar region secured to the skin with nylon suture and attached to sterile suction. The closure was performed with 0 Vicryl interrupted for the deep and superficial fascia with 3-0 Vicryl running subcuticular closure and amada for skin closure. A sterile bactericidal dressing was placed on both incision sites. The patient was turned back into supine position on the bed with a cervical collar in place. The patient was taken to intensive surgical care in stable condition. All counts were correct at the end of the case Estimated blood loss 400 cc for both procedures The specimen from the thoracic and lumbar epidural space was sent for routine microbiology cultures. Intraoperative monitoring towards midpoint of the procedure changed in regards to right upper extremity SSEP. This was discussed with anesthesia as well as with the neuro monitoring personnel. The cervical spine position was double checked and arm position changed and reassessed. Blood pressure was optimized. The right upper extremity changes stabilized for the remainder of the procedure. All other neuro monitoring parameters remained stable. Jerry Chakraborty MD Jan 08, 2018 02:04
[2018-01-08] MEDS: RESP: ALBUTEROL 2.5 MG/IPRATROPIUM 0.5 MG NEB (SCH) NEB ×4 (03:33→19:42)
[2018-01-08] MEDS: MORPHINE SULFATE 2 MG/ML SYRINGE IV PUSH PRN (03:42)
[2018-01-08] MEDS ORDERED: PHARMACY ORDERED LAB ONE (03:45)
[2018-01-08] MEDS: VASOPRESSIN INJ 40 UNITS in DEXTROSE 5% IN WATER 100ML INJ 98 ML IV SCH ×2 (03:47)
[2018-01-08 04:39] LABS: AUTOMATED NEUTROPHIL # 11.9 TH/MM3 (1.8-7.7); BASOPHIL # 0.1 TH/MM3 (0-0.2); BASOPHIL % 0.8 % (0.0-2.0); EOSINOPHIL % 0.1 % (0.0-4.0); HEMATOCRIT 27.7 % (39.0-51.0); HEMOGLOBIN 9.9 GM/DL (13.0-17.0); LYMPH % 6.3 % (9.0-44.0); LYMPHOCYTE # 0.8 TH/MM3 (1.0-4.8); MEAN CELL VOLUME 86.5 FL (80.0-100.0); MEAN CORPUSCULAR HEMOGLOBIN 30.8 PG (27.0-34.0); MEAN CORPUSCULAR HGB CONC 35.7 % (32.0-36.0); MEAN PLATELET VOLUME 9.8 FL (7.0-11.0); MONO % 2.5 % (0.0-8.0); MONOCYTE # 0.3 TH/MM3 (0-0.9); NEUT % 90.3 % (16.0-70.0); PLATELET COUNT 133 TH/MM3 (150-450); RED BLOOD COUNT 3.21 MIL/MM3 (4.50-5.90); RED CELL DISTRIBUTION WIDTH 15.6 % (11.6-17.2); WHITE BLOOD COUNT 13.2 TH/MM3 (4.0-11.0)
[2018-01-08] MEDS: MIDAZOLAM HCL 2 MG/2 ML VIAL IV PUSH PRN (04:55)
[2018-01-08] MEDS: MIDAZOLAM 100 MG/100 ML INJ 100 ML IV PRN (04:57)
[2018-01-08 05:04] LABS: BICARBONATE 26.5 MEQ/L (21.0-32.0); CALCIUM 7.3 MG/DL (8.5-10.1); CREATININE 0.69 MG/DL (0.60-1.30)
[2018-01-08 05:15] LABS: TOTAL PROTEIN 5.8 GM/DL (6.4-8.2)
[2018-01-08] MEDS: VANCOMYCIN 1,500 MG/NS 500 ML IV SCH ×4 (05:27→16:04)
[2018-01-08] MEDS: cefTAZidime INJ 2,000 MG in SODIUM CHLORIDE 0.9% INJ 100 ML IV SCH ×3 (05:28→21:12)
[2018-01-08] MEDS: HYDROCORTISONE SOD SUCCINATE 100 MG VIAL IV PUSH SCH ×3 (05:28→20:08)
[2018-01-08] MEDS: metroNIDAZOLE 500 MG INJ 100 ML IV SCH ×3 (05:28→20:10)
[2018-01-08] MEDS: METOCLOPRAMIDE HCL 10 MG/2 ML VIAL IM SCH ×3 (05:28→20:10)
[2018-01-08] MEDS: POTASSIUM PHOSPHATE/SODIUM PHOSPHATE 250 MG TAB PO SCH ×4 (06:00→17:40)
[2018-01-08] MEDS: ARTIFICIAL TEARS OPTH SOLN 15 ML BTL EACH EYE SCH ×3 (06:00→20:10)
[2018-01-08] MEDS: fentaNYL DRIP 250 ML IV PRN ×2 (06:01→17:06)
--- NOTE | 2018-01-08 06:14 | RADRPT ---
EXAM DATE/TIME: 01/08/2018 03:53 [facility] COMPARISON: ABDOMEN KUB ONLY, January 07, 2018, 3:50. INDICATIONS : Abdominal distension MEDICAL HISTORY : Benign prostatic hyperplasia, (BPH). Cord compression. SURGICAL HISTORY : Prostate biopsy. Kidney biopsy. ENCOUNTER: Subsequent ACUITY: 4 - 6 days PAIN SCORE: Non-responsive. LOCATION: abdomen FINDINGS: 2 supine AP views of the abdomen. Nasogastric tube remains in place. Mild diffusely distended gas teetee led colon and small bowel. Degree of distention has decreased when compared to the prior study of 01/07. Transverse colon now measures 5.8 cm compared to 8.5 cm on the prior study. CONCLUSION: Decrease in colonic air filled distention. Pattern likely represents ileus. Marcial Redmond MD on January 08, 2018 at 6:11 Board Certified Radiologist. This report was verified electronically.
--- NOTE | 2018-01-08 07:18 | HHI.NSPN ---
History Chief Complaint: Unable to obtain due to patient's clinical condition. Interval History 01/03: 67-year-old male who underwent a prostate biopsy one week ago, on . He states that on the evening of 12/29/17 on into the morning of 12/30/17, he developed fever and chills, low back pain, and lower extremity numbness and paresthesias and muscle spasm. He was seen by his primary care physician and was given medication including muscle relaxant. The symptoms persisted and he returned to his primary care physician on Wednesday , 01/01/18 and was given additional medications including Cipro. He awoke on 01/02/2018 with increased lower extremity weakness and numbness, and fell in the shower in the morning, after which he was unable to ambulate or lift his legs off the bed, and continued to experience pain in the lower back. He went to the emergency room at [facility], and was given additional medication injections. He states that he could not lift his legs off the bed or ambulate in the emergency room, and was taken out to his car and lifted into the car and sent home again. He fell in the driveway again trying to get back into the house. He apparently did not urinate for the entire day. He has no complaint of pain which is numbness paresthesias in the upper extremities. No numbness or paresthesias over the chest or abdomen or pelvic region. The patient was emergently taken to the operating room for a bilateral L1-2, L2- 3, L3 4, L4 5 decompressive semi-laminectomy, medial facetectomy for spinal canal decompression. Post-operatively the patient remained intubated and was admitted to [facility] for further care and monitoring. 01/04: When seen this afternoon the patient has been extubated. He is awake and alert and readily interacts. He does report pain to the neck and the lower back. He has no numbness, tingling or weakness to the upper extremities but does say he will have pain shooting down them if he moves wrong. He denies any pain to the lower extremities but does have numbness to both feet and about the only movement he is able to do is move his knees medially and laterally. Upon examination the patient's sensorimotor exam is improved from pre-operatively 01/05: The patient desaturated this morning and a Halicat was initiated. From the EMR Nursing reported that the patient was lethargic and difficult to arouse. His sat was in the 80s and he did have a fever of 102F. He was therefore transferred back to [facility]. A chest x-ray demonstrated a left lower lobe consolidation. His blood, urine and lumbar spine wound cultures have all come back positive for Escherichia coli. When seen this afternoon the patient was awake, alert and readily interacted. He was visiting with his significant other. His upper extremity examination was variable with some improvement and some decline. His sensation and motor strength to the lower extremities had declined. The surgical incision looked good upon examination and the GUIDO drain was removed. 01/06: This afternoon the patient is on a nonrebreather mask when seen, he is tachypneic and laboured. He says he has some low back pain, especially at night. He denies any neck pain or headache. He has worsening of his muscle strength to the upper extremities and it remains poor to the lower. 01/07: The patient was urgently intubated yesterday evening for worsening respiratory status and remains so this morning. He underwent emergent surgery for decompression of the cervical and thoracic spines. Post-operatively he returned to [facility]. He is sedated with propofol. He has vasopressin and norepinephrine infusing for blood pressure support. He is obtunded but sedated and there is no response to any stimulation. 01/08: Patient sedated with Diprivan and fentanyl drips. He was biting the tube and was also recently placed on Versed. He is not opening eyes or following commands. He remains sedated for vent synchrony. System Review Comments Not able to obtain given clinical condition. Exam Results Vital Signs Date Time Temp Pulse Resp B/P (MAP) Pulse Ox O2 Delivery O2 Flow Rate FiO2 01/08/18 06:00 94 01/08/18 05:44 99 40 01/08/18 04:00 97.2 17 157/75 (102) 01/07/18 19:00 Mechanical Ventilator 01/06/18 18:06 6.00 Intake and Output 01/08/18 01/08/18 01/08/18 07:59 15:59 23:59 Intake Total 750 ml Output Total 100 ml Balance 650 ml Physical Examination General: Pt is sedated and intubated in the ICU on norepinephrine drip. Eyes: Pupils 2 mm bilaterally slight reaction bilaterally. Sclera anicteric. Resp: Intubated. Clear to auscultation bilaterally. PRVC A/C rate 17. Peep 5. FiO2 40%. Heart: Normal sinus rhythm no murmurs. Abd: Soft positive bs. Skin: No cyanosis or erythema Muscle: Pt sedated not following commands. Prior to Versed patient when stimulated would reportedly open his eyes to pain. There was no spontaneous movement or withdrawal in the lower extremities or the right upper extremity. Reportedly withdrew the left upper extremity to pain. Cervical collar intact. Neuro: Pt sedated on to prevent, fentanyl, and Versed. He is currently not opening his eyes but did to pain prior to Versed reportedly. Pupils 2 mm bilaterally slight reaction bilaterally. He does not follow commands. Cervical collar remains intact. Lab, Micro, Other Results Last Impressions Abdomen X-Ray 01/08/18 0600 Signed Impressions: Service Date/Time: Monday, January 08, 2018 03:53 - CONCLUSION: Decrease in colonic air filled distention. Pattern likely represents ileus. Marcial Redmond MD Thoracic Spine X-Ray 01/08/18 0000 Signed Impressions: Service Date/Time: Sunday, January 07, 2018 21:17 - CONCLUSION: Intraoperative spot images of the thoracic spine for localization purposes. Marcial Redmond MD Lumbar Spine X-Ray 01/08/18 0000 Signed Impressions: Service Date/Time: Sunday, January 07, 2018 21:17 - CONCLUSION: Single intraoperative spot image for localization purposes. Marcial Redmond MD Thoracic Spine MRI 01/06/18 0000 Signed Impressions: Service Date/Time: January 14:23 - CONCLUSION: 1. Multilevel cord compression is due predominantly to multiple disc protrusions. Significant cord compression is present at least 6 levels. There is also cord compression posteriorly at the T10 level due to a fluid collection in the midline which measures 6 mm in AP dimension. 2. There is also focal subcutaneous right parasagittal fluid collection at T10 and T11 which does not demonstrate peripheral contrast enhancement. An abscess is suspected. Jagjit Wilkinson MD Chest X-Ray 4/5/18 0000 Signed Impressions: Service Date/Time: January 20:20 - CONCLUSION: 1. Endotracheal tube tip in proximal right mainstem bronchus. This should be withdrawn about 3 cm. Nasogastric tube in stomach. 2. Left central line tip not well visualized but probably in brachiocephalic vein. Frederick Rizzo MD Chest CT 01/06/18 Signed Impressions: Service Date/Time: January 18:51 - CONCLUSION: 1. No abscess identified outside of the thoracic spinal canal. Small bilateral pleural effusions. NG coiled in the stomach. Frederick Rizzo MD Cervical Spine MRI 01/06/18 Signed Impressions: Service Date/Time: January 14:23 - CONCLUSION: 1. Severe degenerative changes with severe spinal stenosis at C2-3, C3-4, C4-5 and C5-6. There is moderate spinal stenosis at C6-7 and C7-T1. Overall assessment of the cord is limited due to motion artifact. I do not definitively see edema within the cord however there is significant flattening of the cord at multiple levels. 2. No significant abnormal contrast enhancement identified. Leonardo Sorenson MD Brain MRI 01/06/18 Signed Impressions: Service Date/Time: January 14:23 - CONCLUSION: 1. Negative MRI of the brain with and without contrast. Jagjit Wilkinson MD Abdomen/Pelvis CT 01/06/18 Signed Impressions: Service Date/Time: January 18:51 - CONCLUSION: 1. Multiple laminectomy defects in the lumbar spine with some locules of air both within the canal and within the L2 vertebral body which could be related to infection. Cannot exclude abscess formation within the canal. 2. 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 3. Diffuse ileus. 4. Small effusions and mild anasarca. 5. Reyna catheter in decompressed bladder. NG coiled in stomach. Frederick Rizzo MD Lumbar Spine MRI 01/05/18 Signed Impressions: Service Date/Time: Friday, January 05, 2018 14:27 - CONCLUSION: 1. Extensive postsurgical changes with apparent left decompressive laminectomy leftward from L1 to through L4-5. 2. There is a well-circumscribed 1.4 cm cystic structure midline just posterior to the thecal sac at L4-5 which was not clearly present previously. May represent a small seroma which could result in some degree of central spinal stenosis despite the left laminectomy. 3. In addition, severe narrowing of the right L4-5 neural foramen with almost certain compromise of the right L4 nerve root. Emir Bowles MD Laboratory Tests Test 01/08/18 04:30 White Blood Count 13.2 TH/MM3 Red Blood Count 3.21 MIL/MM3 Hemoglobin 9.9 GM/DL Hematocrit 27.7 % Mean Corpuscular Volume 86.5 FL Mean Corpuscular Hemoglobin 30.8 PG Mean Corpuscular Hemoglobin Concent 35.7 % Red Cell Distribution Width 15.6 % Platelet Count 133 TH/MM3 Mean Platelet Volume 9.8 FL Neutrophils (%) (Auto) 90.3 % Lymphocytes (%) (Auto) 6.3 % Monocytes (%) (Auto) 2.5 % Eosinophils (%) (Auto) 0.1 % Basophils (%) (Auto) 0.8 % Neutrophils # (Auto) 11.9 TH/MM3 Lymphocytes # (Auto) 0.8 TH/MM3 Monocytes # (Auto) 0.3 TH/MM3 Eosinophils # (Auto) 0.0 TH/MM3 Basophils # (Auto) 0.1 TH/MM3 CBC Comment DIFF FINAL Differential Comment Blood Urea Nitrogen 21 MG/DL Creatinine 0.69 MG/DL Random Glucose 126 MG/DL Total Protein 5.8 GM/DL Calcium Level 7.3 MG/DL Sodium Level 136 MEQ/L Potassium Level 4.6 MEQ/L Chloride Level 104 MEQ/L Carbon Dioxide Level 26.5 MEQ/L Anion Gap 6 MEQ/L Estimat Glomerular Filtration Rate 114 ML/MIN Protein Corrected Calcium 8.0 MG/DL Vancomycin Level Trough 17.8 MCG/ML Medical Decision Making Impression and Plan Impression: 1. Severe progressive paraplegia. Although he has significant spinal stenosis in the cervical thoracic and lumbar region, his overall presentation and exam suggests that the lumbar stenosis is the immediate cause of his severe lower extremity deficit, positive cauda equina syndrome. 2. Possible sepsis 3. Acute kidney disease 4. 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 Severe lumbar canal stenosis 2. Cauda equina syndrome 3. Cervical degenerative disease with severe stenosis and myelopathy 4. Thoracic disc disease with severe canal stenosis and myelopathy 5. Sepsis 6. Thrombocytopenia 7. Acute kidney disease Postoperative Diagnosis : (1) Cervical disc disease with myelopathy (2) Thoracic disc disease with myelopathy () s/p: 1. Bilateral L1-2, L2-3, L3 4, L4 5 decompressive semi-laminectomy, medial facetectomy for spinal canal decompression. (-): Procedure number 1. C2-C6 decompressive laminectomy Procedure number 2,Via separate incision: T2-T6 decompressive laminectomy 01/07/18 s/p Procedure #1: 1. [id number] decompressive semi-laminectomy, evacuation thoracic epidural abscess 2. Evacuation thoracic epidural abscess. Procedure #2: Via separate incision. 1. Revision L2-3, L3 4, L4 5 decompressive semi-laminectomy 2. Evacuation lumbar epidural abscess 3. Evacuation of postoperative lumbar epidural hematoma Plan: Continue to monitor Continue with critical care Continue with SCDs. Hussein Braswell Jan 08, 2018 7:18 am
[2018-01-08] MEDS: METHOCARBAMOL 500 MG TAB PO SCH ×4 (09:46→20:09)
[2018-01-08] MEDS: ATORVASTATIN 40 MG TAB PO SCH (09:46)
[2018-01-08] MEDS: SODIUM CHLORIDE 0.9% FLUSH 10 ML FLUSH IV FLUSH SCH ×2 (09:47→21:00)
[2018-01-08] MEDS: FAMOTIDINE 20 MG TAB PO SCH ×2 (09:47→20:08)
[2018-01-08] MEDS: DOCUSATE SODIUM 50 MG/SENNA 8.6 MG TAB PO SCH ×2 (09:47→20:09)
[2018-01-08] MEDS: NS + KCL 20 MEQ INJ 1,000 ML IV SCH ×3 (11:17→20:30)
--- NOTE | 2018-01-08 16:31 | HHI.CCPN ---
Subjective Remarks/Hospital Course 67-year-old male who underwent a prostate biopsy one week ago, on 12/27/17. On the evening of 12/29/17 he developed fever and chills, low back pain, and lower extremity numbness and paresthesias and muscle spasm. He was seen by his primary care physician and was given medication including muscle relaxant. The symptoms persisted and he returned to his primary care physician on Wednesday, and was given additional medications including Cipro. He awoke on 01/02/2018 with increased lower extremity weakness and numbness, and fell in the shower in the morning, after which he was unable to ambulate or lift his legs off the bed, and continued to experience pain in the lower back. He went to the emergency room at [facility], and was given additional medication injections. He could not lift his legs off the bed or ambulate in the emergency room, and was taken out to his car and lifted into the car and sent home again. He fell in the driveway again trying to get back into the house. He apparently did not urinate for the entire day. He has no complaint of pain which is numbness paresthesias in the upper extremities. No numbness or paresthesias over the chest or abdomen or pelvic region. The MRI of thoracic spine shows severe canal stenosis at T2-3 and T5-6 level with cord compressions, complete or near complete canal obliteration at L2 -3 L3-4 and severe multilevel canal stenosis of the C-spine. The patient is emergently taken to operating room by Dr. Chakraborty. Subjective 01/04: Extubated late afternoon yesterday without any complications. Some sensation bilateral lower extremities. Strength 4-5 bilateral upper extremities. Afebrile. Hemodynamically stable. 01/06: RECONSULT NOTE: reconsulted for respiratory distress. in brief, 67yM with recent prostate biopsy complicated by e. coli bacteremia and lumbar epidural abscess. he was stable and sent to the floor where he developed respiratory distress, fever, tachycardia, tachypnea, diaphoresis. on my exam, patient is in distress, appears toxic. repeat MRI spine demonstrates fluid collections and evidence of spinal compression in cervical, thoracic, and lumbar spinal areas concerning for rapidly ascending abscess with neurologic compromise. also, patient was weak in b/l LEs overnight and now is nearly a complete quad, with only 3/5 distal upper extremity strength left and 1/5 proximal upper extremity strength. 01/07: Persistent septic course. Unable to wean from mechanical ventilation. Infectious Disease service is guiding antimicrobial therapy. 01/08: Back from OR. Vent synchrony much improved with large tidal volume breaths. Urine output acceptable, gas exchange acceptable. Objective Vital Signs Date Time Temp Pulse Resp B/P (MAP) Pulse Ox O2 Delivery O2 Flow Rate FiO2 01/08/18 15:34 100 40 01/08/18 12:00 97.7 60 14 120/60 (80) 01/08/18 07:30 Mechanical Ventilator 01/06/18 18:06 6.00 Intake and Output 01/08/18 01/08/18 01/09/18 08:00 16:00 00:00 Intake Total 750 ml Output Total 100 ml Balance 650 ml Result Diagram: 01/08/18 0430 01/08/18 0430 Imaging Last Impressions Thoracic Spine MRI 01/03/18 0000 Signed Impressions: Service Date/Time: Wednesday, January 03, 2018 00:38 - CONCLUSION: Multilevel disc abnormalities. Severe canal stenosis at T2-3 and T5-6 with cord compression and mild signal changes in the cord at T2-3 and moderate signal changes within the cord at T5-6. Less severe changes at L2 additional levels as described. Harley Herrera MD Lumbar Spine MRI 01/03/18 0000 Signed Impressions: Service Date/Time: Wednesday, January 03, 2018 00:38 - CONCLUSION: Complete or near complete canal obliteration at L2-3, L3-4 and L4-5 with less severe compromise at L1-2 and T12-L1. Harley Herrera MD Cervical Spine MRI 01/03/18 0000 Signed Impressions: Service Date/Time: Wednesday, January 03, 2018 00:38 - CONCLUSION: Severe multilevel canal stenosis. Findings appear to be most critical at C4-5 and C5-6 where AP canal dimension is reduced to 4-5 mm, however also quite severe at C2-3 and C3-4. Harley Herrera MD Chest X-Ray 01/02/18 5409 Signed Impressions: Service Date/Time: Tuesday, January 02, 2018 23:11 - CONCLUSION: Mild basilar atelectasis or scarring. Harley Herrera MD Procedures L1 through L5 decompressive laminectomy. Objective Remarks GENERAL: 67-year-old male, sedated, intubated. SKIN: Cool. HEAD: Normocephalic. EYES: No scleral icterus. No injection or drainage. NECK: Supple, trachea midline. Orally intubated. CARDIOVASCULAR: tachycardic rate, regular rhythm. sinus. RESPIRATORY: equal chest rise. clear breath sounds. mechanically ventilated. GASTROINTESTINAL: Abdomen soft, mildly distended. nontender. no guarding. BS few. MUSCULOSKELETAL: No significant peripheral edema, well perfused limbs. NEURO EXAM: Heavily sedated, breathes over ventilator. A/P Assessment and Plan Assessment: 67-year-old male now postop day 3 status post lumbar laminectomy and decompression for epidural abscess who presents now with rapidly progressive spinal abscess with rapidly worsening myelopathy and neurologic function. It appears that the patient remains bacteremic and is very toxic in severe sepsis leading to septic shock and decompensating manner. Dr. Chakraborty, Dr. Charles, and myself had multiple conversations. This patient is very critically ill and is very likely not survive this illness. However, his only chance of meaningful recovery would be emergent decompression and washout. After discussion with the patient, and Dr. Chakraborty, we all agreed to proceed. I intubated the patient, see separate procedure notes for details, and placed arterial line and central line. We will continue broad-spectrum antibiotics and plan to have large volume blood product resuscitation available. Neuro/Psych: Postop day #5 Bilateral L1-2, L2-3, L3 4, L4 5 decompressive semi-laminectomy, medial facetectomy for spinal canal decompression. Depression/anxiety Ascending myelopathy Spinal abscess C-spine revealed cord compression C2 through C4 and C4 through C6. T-spine 2-3/ 5 6 and lumbar spine T throughout L2 with essentially ablation of the cord from L2 through L5. Status post emergent surgery per Dr. Chakraborty 4/2 Acetaminophen 650 mg p.o. every 6 hours as needed pain 1-5/fever Morphine sulfate 2 mg IV every 8 as needed pain 6 or 10 Neurochecks Propofol and fentanyl for goal RASS -2 all intubated CV: Dyslipidemia Severe sepsis Early septic shock Maintenance fluids at 125 cc/hr Not requiring vasopressors and/or antihypertensives Currently on atorvastatin 40 mg p.o. daily. Hospital substitution for rosuvastatin 20 mg p.o. daily Given rapidly declining status, we will plan to have norepinephrine and vasopressin available Given duration and severity of critical illness, will likely need stress dose steroids. Will start empirically with hydrocortisone 100 mg IV every 8 hours. Resp: Acute hypoxic hypercarbic respiratory failure Vent bundle Nebs Wean FiO2 for goal SPO2 greater than 90% No weaning of mechanical ventilation until shock improves and source control is contained Gas exchange acceptable. GI: Postoperative ileus NPO Place gastric tube to suction Likely ileus is multifactorial including severe sepsis and postoperative pain, likely compounded by myelopathy and there could be a neurogenic component to his ileus Famotidine for GI prophylaxis Docusate sodium/senna 1 tablet twice daily for bowel regimen GI consulted : BPH Maintain Reyna catheter Currently on tamsulosin 0.4 mg p.o. daily Recent prostate biopsy. Pathology pending Endo: Sliding scale insulin Accu-Cheks to maintain euglycemia/low regimen Renal: Acute kidney injury- improving Avoid nephrotoxic drugs Monitor urine output Accurate I's and O's Heme: Thrombocytopenia likely secondary to sepsis Anemia secondary to acute blood loss Haptoglobin high. LDH normal. Peripheral smear no signs of schistocytes total bilirubin normal. Status post 2 pack platelets 4/3. Followed by hematology 4 units packed red cells, 4 units FFP. ID: E. coli bacteremia E. coli spinal abscess ID consulted Broad-spectrum metabolic coverage Emergent decompression + washout FEN Replace electrolytes as clinically indicated MSK: Osteoporosis Holding meloxicam 7.5 mg p.o. twice daily. PT/OT evaluate and treat Access -4/5 left subclavian 9 Romansh introducer sheath 4/5 left radial arterial line Reyna Prophylaxis -GI -famotidine -DVT -SCD/holding pharmacologic prophylaxis until acute neurosurgery/severe thrombocytopenia Overall impression: Critically ill with severe sepsis, undergoing surgical source control. This patient remains critically ill with one or more organ systems which are or may become a threat to life. I have spent 37 minutes in the care and management of this patient. This time is exclusive of procedures, and includes , but is not limited to, evaluation of the patient, review of the medical record , discussions with family, consultants, nursing staff, or respiratory therapy, and documentation in the medical record. Vick Mayes MD Jan 08, 2018 16:31
[2018-01-08] MEDS: MAGNESIUM HYDROXIDE SUSP 30 ML CUP PO PRN (17:41)
--- NOTE | 2018-01-08 19:37 | HHI.IDPN ---
Subjective Subjective Remarks Patient seen and examined with Dr. Charles Mr. Reeves is a 67 y/o CM with history of BPH who underwent a prostate biopsy one week ago, on 12/27/17. On the evening of 12/29/17 he developed fever and chills, low back pain, and lower extremity numbness and paresthesias and muscle spasm. He was seen by his primary care physician and was given medication including muscle relaxant. The symptoms persisted and he returned to his primary care physician on 01/01/18 and was given additional medications including Cipro and medrol dose pack. On 01/02/2018 patient woke up with increased lower extremity weakness and numbness, and fell in the shower in the morning, after which he was unable to ambulate or lift his legs off the bed , and continued to experience pain in the lower back. He went to the emergency room at [facility], and was given additional medication injections. He could not lift his legs off the bed or ambulate in the emergency room, and was taken out to his car and lifted into the car and sent home again. He fell in the driveway again trying to get back into the house. He apparently did not urinate for the entire day. He has no complaint of pain which is numbness paresthesias in the upper extremities. Reportedly on admission there was no numbness or paresthesias over the chest or abdomen or pelvic region. The MRI of thoracic spine shows severe canal stenosis at T2-3 and T5-6 level with cord compressions, complete or near complete canal obliteration at L2-3 L3- 4 and severe multilevel canal stenosis of the C-spine. Entire spine including C spine shows areas of stenosis. Upon my discussion with patient had to be emergently taken to the OR for decompression. Intraop cultures were taken and no hardware placed at present time but it appears that patient will need more surgeries. The MRIs done were non contrast due to Acute renal failure on admission and cannot be repeated. Per dw plan is to treat as epidural abscess stone since patient was treated for few days with antibiotics prior to arrival and also due to patient needing hardware placement which can be seeded. Previously, Intubated, being weaned off sedation, UO is good peck in place. Not on any pressors. There is a plan wean and extubate. ID consulted for evaluation and Management of GN yovanny bacteremia (E.coli CTX M negative) and possible epidural abscess. Reviewed overnight events. Notes reviewed. Patient underwent procedure 1 C2-C6 decompressive laminectomy, procedure to T2- T6 decompressive laminectomy. (Separate incisions) by Dr. Chakraborty C-collar in place. Periods of hypothermia. Not on pressors. No rash, no diarrhea. Movement of fingers spontaneously below wrist R> L Ileus No BM yet Antibiotics Ceftaz, Vanco IV, Flagyl IV Lines Line sites with no e.o infection Past Medical History reviewed Allergies: Coded Allergies: No Known Allergies (Unverified , 01/02/18) Objective . Vital Signs Date Time Temp Pulse Resp B/P (MAP) Pulse Ox O2 Delivery O2 Flow Rate FiO2 01/08/18 18:00 72 01/08/18 16:00 64 01/08/18 16:00 97.3 64 14 116/54 (74) 100 01/08/18 16:00 50 01/08/18 15:34 100 40 01/08/18 14:00 81 01/08/18 12:00 50 01/08/18 12:00 97.7 60 14 120/60 (80) 100 01/08/18 12:00 60 01/08/18 10:00 69 01/08/18 09:09 99 40 01/08/18 08:00 50 01/08/18 08:00 98.4 69 14 112/61 (78) 99 01/08/18 08:00 94 01/08/18 07:30 99 Mechanical Ventilator 50 01/08/18 06:00 94 01/08/18 05:44 99 40 01/08/18 04:00 76 01/08/18 04:00 97.2 76 17 157/75 (102) 100 01/08/18 04:00 50 01/08/18 03:47 77 169/80 01/08/18 02:00 52 01/08/18 01:28 100 40 01/07/18 20:10 100 100 01/07/18 20:00 53 01/07/18 20:00 50 01/07/18 20:00 50 17 132/66 (88) 99 01/07/18 19:50 99 40 01/08/18 01/08/18 01/09/18 15:00 23:00 07:00 Intake Total 0 ml Output Total 1387 ml Balance -1387 ml Intake Oral 0 ml Output Urine Total 1250 ml Gastric Drainage Total 50 ml Drainage Total 87 ml # Bowel Movements 0 . Laboratory Tests Test 01/06/18 21:44 01/06/18 22:17 01/06/18 23:40 01/07/18 01:10 White Blood Count 15.8 TH/MM3 18.3 TH/MM3 26.1 TH/MM3 Red Blood Count 2.09 MIL/MM3 2.14 MIL/MM3 2.85 MIL/MM3 Hemoglobin 6.6 GM/DL 6.8 GM/DL 8.7 GM/DL 8.1 GM/DL Hematocrit 19.0 % 19.4 % 24.9 % 23.2 % Mean Corpuscular Volume 90.6 FL 90.9 FL 87.4 FL Mean Corpuscular Hemoglobin 31.5 PG 31.8 PG 30.5 PG Mean Corpuscular Hemoglobin Concent 34.8 % 35.0 % 34.9 % Red Cell Distribution Width 13.8 % 13.6 % 15.5 % Platelet Count 81 TH/MM3 93 TH/MM3 120 TH/MM3 Mean Platelet Volume 9.5 FL 9.7 FL 9.3 FL Test 01/07/18 02:12 01/07/18 05:42 01/08/18 04:30 Platelet Count 101 TH/MM3 97 TH/MM3 133 TH/MM3 White Blood Count 18.2 TH/MM3 13.2 TH/MM3 Red Blood Count 2.76 MIL/MM3 3.21 MIL/MM3 Hemoglobin 8.6 GM/DL 9.9 GM/DL Hematocrit 24.2 % 27.7 % Mean Corpuscular Volume 87.5 FL 86.5 FL Mean Corpuscular Hemoglobin 31.3 PG 30.8 PG Mean Corpuscular Hemoglobin Concent 35.8 % 35.7 % Red Cell Distribution Width 15.5 % 15.6 % Mean Platelet Volume 9.0 FL 9.8 FL Neutrophils (%) (Auto) 88.0 % 90.3 % Lymphocytes (%) (Auto) 4.0 % 6.3 % Monocytes (%) (Auto) 7.8 % 2.5 % Eosinophils (%) (Auto) 0.1 % 0.1 % Basophils (%) (Auto) 0.1 % 0.8 % Neutrophils # (Auto) 16.0 TH/MM3 11.9 TH/MM3 Lymphocytes # (Auto) 0.7 TH/MM3 0.8 TH/MM3 Monocytes # (Auto) 1.4 TH/MM3 0.3 TH/MM3 Eosinophils # (Auto) 0.0 TH/MM3 0.0 TH/MM3 Basophils # (Auto) 0.0 TH/MM3 0.1 TH/MM3 CBC Comment AUTO DIFF DIFF FINAL Differential Total Cells Counted 100 Neutrophils % (Manual) 91 % Lymphocytes % 3 % Monocytes % 3 % Neutrophils # (Manual) 17.1 TH/MM3 Myelocytes 3 % Differential Comment FINAL DIFF MANUAL Toxic Granulation 1+ Toxic Vacuolation PRESENT Dohle Bodies PRESENT Platelet Estimate LOW Platelet Morphology Comment NORMAL Laboratory Tests Test 01/06/18 21:44 01/07/18 03:45 01/08/18 04:30 Blood Urea Nitrogen 24 MG/DL 23 MG/DL 21 MG/DL Creatinine 0.82 MG/DL 0.86 MG/DL 0.69 MG/DL Random Glucose 122 MG/DL 180 MG/DL 126 MG/DL Total Protein 5.6 GM/DL 5.0 GM/DL 5.8 GM/DL Calcium Level 6.8 MG/DL 7.2 MG/DL 7.3 MG/DL Sodium Level 135 MEQ/L 135 MEQ/L 136 MEQ/L Potassium Level 4.2 MEQ/L 4.8 MEQ/L 4.6 MEQ/L Chloride Level 104 MEQ/L 102 MEQ/L 104 MEQ/L Carbon Dioxide Level 24.2 MEQ/L 26.1 MEQ/L 26.5 MEQ/L Anion Gap 7 MEQ/L 7 MEQ/L 6 MEQ/L Estimat Glomerular Filtration Rate 93 ML/MIN 88 ML/MIN 114 ML/MIN Protein Corrected Calcium 7.6 MG/DL 8.3 MG/DL 8.0 MG/DL Albumin 1.5 GM/DL Alkaline Phosphatase 151 U/L Aspartate Amino Transf (AST/SGOT) 34 U/L Alanine Aminotransferase (ALT/SGPT) 23 U/L Total Bilirubin 2.6 MG/DL Microbiology Date/Time Source Procedure Growth Status 01/07/18 22:50 Abscess Back Gram Stain - Final Resulted 01/07/18 22:50 Abscess Back Wound Culture Pending Resulted 01/07/18 22:50 Abscess Back Gram Stain - Final Resulted 01/07/18 22:50 Abscess Back Wound Culture Pending Resulted 01/07/18 22:08 Wound Back Gram Stain - Final Resulted 01/07/18 22:08 Wound Culture - Preliminary Gram Negative Yovanny Resulted Imaging Last Impressions Thoracic Spine MRI 01/03/18 0000 Signed Impressions: Service Date/Time: Wednesday, January 03, 2018 00:38 - CONCLUSION: Multilevel disc abnormalities. Severe canal stenosis at T2-3 and T5-6 with cord compression and mild signal changes in the cord at T2-3 and moderate signal changes within the cord at T5-6. Less severe changes at L2 additional levels as described. Harley Herrera MD Lumbar Spine MRI 01/03/18 0000 Signed Impressions: Service Date/Time: Wednesday, January 03, 2018 00:38 - CONCLUSION: Complete or near complete canal obliteration at L2-3, L3-4 and L4-5 with less severe compromise at L1-2 and T12-L1. Harley Herrera MD Cervical Spine MRI 01/03/18 0000 Signed Impressions: Service Date/Time: Wednesday, January 03, 2018 00:38 - CONCLUSION: Severe multilevel canal stenosis. Findings appear to be most critical at C4-5 and C5-6 where AP canal dimension is reduced to 4-5 mm, however also quite severe at C2-3 and C3-4. Harley Herrera MD Chest X-Ray 01/02/18 [id number] Signed Impressions: Service Date/Time: Tuesday, January 02, 2018 23:11 - CONCLUSION: Mild basilar atelectasis or scarring. Harley Herrera MD Physical Exam GENERAL: This is a well-nourished, well-developed patient, intubated, sedated. SKIN: Warm and dry. HEAD: Normocephalic. EYES: Pupils equal round. No scleral icterus. No injection or drainage. ENT: No thrush, dry oral mucosa. Nose without bleeding. Airway patent. NECK: Trachea midline. C-collar in place. CARDIOVASCULAR: Bradycardia. RESPIRATORY: Diminished breath sounds. No wheezes, rales, or rhonchi. Intubated on mechanical ventilation. GASTROINTESTINAL: Abdomen non-tender, soft, slightly distended. Hypoactive bowel sounds. NG tube in place clamped. : Peck catheter draining clear yellow colored urine MUSCULOSKELETAL: Extremities without clubbing, cyanosis. Generalized edema +1 of extremities. NEUROLOGICAL: Intubated, sedated. LINES: Left IJ central line in place. Assessment & Plan Remarks Severe Sepsis present on admission (leucocytosis, Tachycardia, source: bacteremia and epidural abscess. E.coli bacteremia high grade E.Coli UTI recent prostate biopsy. 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 (Cervical,Thoracic and Lumbar on 4 spots) Recent history of prostate biopsy as risk factor for E.coli bacteremia. Paraparesis present on admission. Recs: Continue Ceftazidime Continue Vanco IV Continue Flagyl sputum cx CXR Follow cultures Follow clinically. dw male spouse. Shanda Charles MD Jan 08, 2018 19:37
[2018-01-08] MEDS: TAMSULOSIN HCL 0.4 MG CAP PO SCH (20:08)
--- NOTE | 2018-01-08 20:26 | RADRPT ---
EXAM DATE/TIME: 01/08/2018 19:43 [place] COMPARISON: CHEST SINGLE AP, January 06, 2018, 20:20. INDICATIONS : Shortness of breath. Evaluate for pneumonia. MEDICAL HISTORY : Benign prostatic hyperplasia, (BPH). Cord compression. SURGICAL HISTORY : Prostate biopsy. Kidney biopsy. ENCOUNTER: Subsequent ACUITY: 3 days PAIN SCORE: Non-responsive. LOCATION: Bilateral chest FINDINGS: The ET tube is in good position 5 cm from the kate. There is an NG tube with its tip in the upper s tomach. There is a left subclavian line in good position Skin amada are seen just to the left of th e midline. There is a drain in place. The heart size is normal. There is increased density at the lef t base. The right lung is clear. CONCLUSION: Left lower lobe atelectasis or consolidation. Harley Ritter MD on January 08, 2018 at 20:22 Board Certified Radiologist. This report was verified electronically.
[2018-01-08] MEDS: NOREPINEPHRINE INJ 4 MG in SODIUM CHLOR 0.9% 250 ML INJ 246 ML IV PRN (22:30)
[2018-01-09] VITALS (17 sets, daily range): BP systolic 98–144; BP diastolic 48–67; PULSE 58–97; RESP 14–16; TEMP 97.9–99.7; O2SAT 92–99
[2018-01-09] MEDS: POTASSIUM PHOSPHATE/SODIUM PHOSPHATE 250 MG TAB PO SCH ×4 (01:07→18:53)
[2018-01-09] MEDS: PROPOFOL 1000 MG/100 ML INJ 100 ML IV PRN ×5 (03:00→23:00)
[2018-01-09] MEDS: RESP: ALBUTEROL 2.5 MG/IPRATROPIUM 0.5 MG NEB (SCH) NEB ×4 (03:20→19:24)
[2018-01-09] MEDS: HYDROCORTISONE SOD SUCCINATE 100 MG VIAL IV PUSH SCH ×3 (04:20→20:56)
[2018-01-09] MEDS: fentaNYL DRIP 250 ML IV PRN ×3 (04:20→23:25)
[2018-01-09] MEDS: VANCOMYCIN 1,500 MG/NS 500 ML IV SCH ×4 (04:23→15:59)
[2018-01-09] MEDS: NS + KCL 20 MEQ INJ 1,000 ML IV SCH ×3 (04:23→13:22)
[2018-01-09] MEDS: METOCLOPRAMIDE HCL 10 MG/2 ML VIAL IM SCH ×3 (06:13→20:57)
[2018-01-09] MEDS: ARTIFICIAL TEARS OPTH SOLN 15 ML BTL EACH EYE SCH ×3 (06:14→20:58)
[2018-01-09] MEDS: cefTAZidime INJ 2,000 MG in SODIUM CHLORIDE 0.9% INJ 100 ML IV SCH ×3 (06:14→20:59)
[2018-01-09] MEDS: metroNIDAZOLE 500 MG INJ 100 ML IV SCH ×3 (06:14→20:58)
[2018-01-09 06:16] LABS: AUTOMATED NEUTROPHIL # 17.4 TH/MM3 (1.8-7.7); BASOPHIL % 0.1 % (0.0-2.0); HEMATOCRIT 25.2 % (39.0-51.0); HEMOGLOBIN 8.9 GM/DL (13.0-17.0); LYMPH % 3.4 % (9.0-44.0); LYMPHOCYTE # 0.6 TH/MM3 (1.0-4.8); MEAN CELL VOLUME 86.6 FL (80.0-100.0); MEAN CORPUSCULAR HEMOGLOBIN 30.7 PG (27.0-34.0); MEAN CORPUSCULAR HGB CONC 35.4 % (32.0-36.0); MEAN PLATELET VOLUME 9.1 FL (7.0-11.0); MONOCYTE # 0.8 TH/MM3 (0-0.9); NEUT % 92.5 % (16.0-70.0); PLATELET COUNT 210 TH/MM3 (150-450); RED BLOOD COUNT 2.91 MIL/MM3 (4.50-5.90); RED CELL DISTRIBUTION WIDTH 15.7 % (11.6-17.2); WHITE BLOOD COUNT 18.8 TH/MM3 (4.0-11.0)
--- NOTE | 2018-01-09 07:15 | HHI.NSPN ---
History Chief Complaint: Unable to obtain due to patient's clinical condition. Interval History 01/03: 67-year-old male who underwent a prostate biopsy one week ago, on . He states that on the evening of 12/29/17 on into the morning of 12/30/17, he developed fever and chills, low back pain, and lower extremity numbness and paresthesias and muscle spasm. He was seen by his primary care physician and was given medication including muscle relaxant. The symptoms persisted and he returned to his primary care physician on Wednesday , 01/01/18 and was given additional medications including Cipro. He awoke on 01/02/2018 with increased lower extremity weakness and numbness, and fell in the shower in the morning, after which he was unable to ambulate or lift his legs off the bed, and continued to experience pain in the lower back. He went to the emergency room at [facility], and was given additional medication injections. He states that he could not lift his legs off the bed or ambulate in the emergency room, and was taken out to his car and lifted into the car and sent home again. He fell in the driveway again trying to get back into the house. He apparently did not urinate for the entire day. He has no complaint of pain which is numbness paresthesias in the upper extremities. No numbness or paresthesias over the chest or abdomen or pelvic region. The patient was emergently taken to the operating room for a bilateral L1-2, L2- 3, L3 4, L4 5 decompressive semi-laminectomy, medial facetectomy for spinal canal decompression. Post-operatively the patient remained intubated and was admitted to [facility] for further care and monitoring. 01/04: When seen this afternoon the patient has been extubated. He is awake and alert and readily interacts. He does report pain to the neck and the lower back. He has no numbness, tingling or weakness to the upper extremities but does say he will have pain shooting down them if he moves wrong. He denies any pain to the lower extremities but does have numbness to both feet and about the only movement he is able to do is move his knees medially and laterally. Upon examination the patient's sensorimotor exam is improved from pre-operatively 01/05: The patient desaturated this morning and a Halicat was initiated. From the EMR Nursing reported that the patient was lethargic and difficult to arouse. His sat was in the 80s and he did have a fever of 102F. He was therefore transferred back to [facility]. A chest x-ray demonstrated a left lower lobe consolidation. His blood, urine and lumbar spine wound cultures have all come back positive for Escherichia coli. When seen this afternoon the patient was awake, alert and readily interacted. He was visiting with his significant other. His upper extremity examination was variable with some improvement and some decline. His sensation and motor strength to the lower extremities had declined. The surgical incision looked good upon examination and the GUIDO drain was removed. 01/06: This afternoon the patient is on a nonrebreather mask when seen, he is tachypneic and laboured. He says he has some low back pain, especially at night. He denies any neck pain or headache. He has worsening of his muscle strength to the upper extremities and it remains poor to the lower. 01/07: The patient was urgently intubated yesterday evening for worsening respiratory status and remains so this morning. He underwent emergent surgery for decompression of the cervical and thoracic spines. Post-operatively he returned to [facility]. He is sedated with propofol. He has vasopressin and norepinephrine infusing for blood pressure support. He is obtunded but sedated and there is no response to any stimulation. 01/08: Patient sedated with Diprivan and fentanyl drips. He was biting the tube and was also recently placed on Versed. He is not opening eyes or following commands. He remains sedated for vent synchrony. 01/09: Pt sedated with Diprivan and Fentanyl drips. He nods his head slightly to questions. Intubated a/c. RN reports all bandages are dry with only mild post op staining. System Review Comments Not able to obtain given clinical condition. Exam Results Vital Signs Date Time Temp Pulse Resp B/P (MAP) Pulse Ox O2 Delivery O2 Flow Rate FiO2 01/09/18 06:00 81 01/09/18 04:00 99.1 14 129/57 (81) 99 01/09/18 04:00 50 4/7/18 19:00 Mechanical Ventilator 01/06/18 18:06 6.00 Intake and Output 01/09/18 01/09/18 01/10/18 08:00 16:00 00:00 Intake Total 200 ml Output Total 2605 ml Balance -2405 ml Physical Examination General: Pt is sedated and intubated in the ICU. Eyes: Pupils 2 mm bilaterally slight reaction bilaterally. Sclera anicteric. Resp: Intubated. Clear to auscultation bilaterally. PRVC A/C rate 17. Peep 5. FiO2 30%. Heart: Normal sinus rhythm no murmurs. Abd: Soft positive bs. Skin: No cyanosis or erythema. RN reports only mild post op staining on bandages. Muscle: Pt not following commands in LEs. 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 Cervical collar intact. Neuro: Pt sedated on Diprivan and Fentanyl. He is opening his eyes. Pupils 2 mm bilaterally slight reaction bilaterally. He follows commands. Cervical collar remains intact. Lab, Micro, Other Results Last Impressions Abdomen X-Ray 01/08/18 0600 Signed Impressions: Service Date/Time: Monday, January 08, 2018 03:53 - CONCLUSION: Decrease in colonic air filled distention. Pattern likely represents ileus. Marcial Redmond MD Thoracic Spine X-Ray 01/08/18 0000 Signed Impressions: Service Date/Time: Sunday, January 07, 2018 21:17 - CONCLUSION: Intraoperative spot images of the thoracic spine for localization purposes. Marcial Redmond MD Lumbar Spine X-Ray 01/08/18 0000 Signed Impressions: Service Date/Time: Sunday, January 07, 2018 21:17 - CONCLUSION: Single intraoperative spot image for localization purposes. Marcial Redmond MD Chest X-Ray 01/08/18 0000 Signed Impressions: Service Date/Time: Monday, January 08, 2018 19:43 - CONCLUSION: Left lower lobe atelectasis or consolidation. Harley Ritter MD Thoracic Spine MRI 01/06/18 0000 Signed Impressions: Service Date/Time: January 14:23 - CONCLUSION: 1. Multilevel cord compression is due predominantly to multiple disc protrusions. Significant cord compression is present at least 6 levels. There is also cord compression posteriorly at the T10 level due to a fluid collection in the midline which measures 6 mm in AP dimension. 2. There is also focal subcutaneous right parasagittal fluid collection at T10 and T11 which does not demonstrate peripheral contrast enhancement. An abscess is suspected. Jagjit Wilkinson MD Chest CT 01/06/18 Signed Impressions: Service Date/Time: January 18:51 - CONCLUSION: 1. No abscess identified outside of the thoracic spinal canal. Small bilateral pleural effusions. NG coiled in the stomach. Frederick Rizzo MD Cervical Spine MRI 01/06/18 Signed Impressions: Service Date/Time: January 14:23 - CONCLUSION: 1. Severe degenerative changes with severe spinal stenosis at C2-3, C3-4, C4-5 and C5-6. There is moderate spinal stenosis at C6-7 and C7-T1. Overall assessment of the cord is limited due to motion artifact. I do not definitively see edema within the cord however there is significant flattening of the cord at multiple levels. 2. No significant abnormal contrast enhancement identified. Leonardo Sorenson MD Brain MRI 01/06/18 Signed Impressions: Service Date/Time: January 14:23 - CONCLUSION: 1. Negative MRI of the brain with and without contrast. Jagjit Wilkinson MD Abdomen/Pelvis CT 01/06/18 Signed Impressions: Service Date/Time: January 18:51 - CONCLUSION: 1. Multiple laminectomy defects in the lumbar spine with some locules of air both within the canal and within the L2 vertebral body which could be related to infection. Cannot exclude abscess formation within the canal. 2. 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 3. Diffuse ileus. 4. Small effusions and mild anasarca. 5. Reyna catheter in decompressed bladder. NG coiled in stomach. Frederick Rizzo MD Lumbar Spine MRI 01/05/18 Signed Impressions: Service Date/Time: Friday, January 05, 2018 14:27 - CONCLUSION: 1. Extensive postsurgical changes with apparent left decompressive laminectomy leftward from L1 to through L4-5. 2. There is a well-circumscribed 1.4 cm cystic structure midline just posterior to the thecal sac at L4-5 which was not clearly present previously. May represent a small seroma which could result in some degree of central spinal stenosis despite the left laminectomy. 3. In addition, severe narrowing of the right L4-5 neural foramen with almost certain compromise of the right L4 nerve root. Emir Bowles MD Laboratory Tests Test 01/09/18 04:09 01/09/18 05:00 Blood Gas Puncture Site ART LINE Blood Gas Patient Temperature 98.6 Blood Gas HCO3 25 mmol/L Blood Gas Base Excess 1.3 mmol/L Blood Gas Oxygen Saturation 96 % Arterial Blood pH 7.47 Arterial Blood Partial Pressure CO2 35 mmHg Arterial Blood Partial Pressure O2 102 mmHg Arterial Blood Oxygen Content 14.7 Vol % Arterial Blood Carboxyhemoglobin 1.4 % Arterial Blood Methemoglobin 1.3 % Blood Gas Hemoglobin 10.8 G/DL Oxygen Delivery Device VENTILATOR Blood Gas Ventilator Setting PRVC/AC14/750/IT1.0/ Blood Gas Inspired Oxygen 30 % White Blood Count 18.8 TH/MM3 Red Blood Count 2.91 MIL/MM3 Hemoglobin 8.9 GM/DL Hematocrit 25.2 % Mean Corpuscular Volume 86.6 FL Mean Corpuscular Hemoglobin 30.7 PG Mean Corpuscular Hemoglobin Concent 35.4 % Red Cell Distribution Width 15.7 % Platelet Count 210 TH/MM3 Mean Platelet Volume 9.1 FL Neutrophils (%) (Auto) 92.5 % Lymphocytes (%) (Auto) 3.4 % Monocytes (%) (Auto) 4.0 % Eosinophils (%) (Auto) 0.0 % Basophils (%) (Auto) 0.1 % Neutrophils # (Auto) 17.4 TH/MM3 Lymphocytes # (Auto) 0.6 TH/MM3 Monocytes # (Auto) 0.8 TH/MM3 Eosinophils # (Auto) 0.0 TH/MM3 Basophils # (Auto) 0.0 TH/MM3 CBC Comment DIFF FINAL Differential Comment Medical Decision Making Impression and Plan Impression: 1. Severe progressive paraplegia. Although he has significant spinal stenosis in the cervical thoracic and lumbar region, his overall presentation and exam suggests that the lumbar stenosis is the immediate cause of his severe lower extremity deficit, positive cauda equina syndrome. 2. Possible sepsis 3. Acute kidney disease 4. 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 Severe lumbar canal stenosis 2. Cauda equina syndrome 3. Cervical degenerative disease with severe stenosis and myelopathy 4. Thoracic disc disease with severe canal stenosis and myelopathy 5. Sepsis 6. Thrombocytopenia 7. Acute kidney disease Postoperative Diagnosis : (1) Cervical disc disease with myelopathy (2) Thoracic disc disease with myelopathy () s/p: 1. Bilateral L1-2, L2-3, L3 4, L4 5 decompressive semi-laminectomy, medial facetectomy for spinal canal decompression. (-): Procedure number 1. C2-C6 decompressive laminectomy Procedure number 2,Via separate incision: T2-T6 decompressive laminectomy 01/07/18 s/p Procedure #1: 1. L24-30-64 decompressive semi-laminectomy, evacuation thoracic epidural abscess 2. Evacuation thoracic epidural abscess. Procedure #2: Via separate incision. 1. Revision L2-3, L3 4, L4 5 decompressive semi-laminectomy 2. Evacuation lumbar epidural abscess 3. Evacuation of postoperative lumbar epidural hematoma Plan: Continue to monitor Continue with critical care Continue with SCDs. Hussein Braswell Jan 09, 2018 7:15 am
[2018-01-09 07:22] LABS: BICARBONATE 25.5 MEQ/L (21.0-32.0); CREATININE 0.68 MG/DL (0.60-1.30)
[2018-01-09 07:45] LABS: CALCIUM-PROTEIN CORRECTED 7.9 MG/DL (8.5-10.1); TOTAL PROTEIN 5.4 GM/DL (6.4-8.2)
[2018-01-09] MEDS: FAMOTIDINE 20 MG TAB PO SCH ×2 (08:38→20:57)
[2018-01-09] MEDS: METHOCARBAMOL 500 MG TAB PO SCH ×4 (08:38→20:57)
[2018-01-09] MEDS: SODIUM CHLORIDE 0.9% FLUSH 10 ML FLUSH IV FLUSH SCH ×2 (08:39→20:58)
[2018-01-09] MEDS: ATORVASTATIN 40 MG TAB PO SCH (08:39)
[2018-01-09] MEDS: DOCUSATE SODIUM 50 MG/SENNA 8.6 MG TAB PO SCH ×2 (08:39→20:57)
[2018-01-09] MEDS: MIDAZOLAM HCL 2 MG/2 ML VIAL IV PUSH PRN (13:05)
[2018-01-09] MEDS: MIDAZOLAM 100 MG/100 ML INJ 100 ML IV PRN (13:22)
--- NOTE | 2018-01-09 14:20 | HHI.IDPN ---
Subjective Subjective Remarks Patient seen and examined with Dr. Charles Mr. Reeves is a 67 y/o CM with history of BPH who underwent a prostate biopsy one week ago, on 12/27/17. On the evening of 12/29/17 he developed fever and chills, low back pain, and lower extremity numbness and paresthesias and muscle spasm. He was seen by his primary care physician and was given medication including muscle relaxant. The symptoms persisted and he returned to his primary care physician on 01/01/18 and was given additional medications including Cipro and medrol dose pack. On 01/02/2018 patient woke up with increased lower extremity weakness and numbness, and fell in the shower in the morning, after which he was unable to ambulate or lift his legs off the bed , and continued to experience pain in the lower back. He went to the emergency room at [facility], and was given additional medication injections. He could not lift his legs off the bed or ambulate in the emergency room, and was taken out to his car and lifted into the car and sent home again. He fell in the driveway again trying to get back into the house. He apparently did not urinate for the entire day. He has no complaint of pain which is numbness paresthesias in the upper extremities. Reportedly on admission there was no numbness or paresthesias over the chest or abdomen or pelvic region. The MRI of thoracic spine shows severe canal stenosis at T2-3 and T5-6 level with cord compressions, complete or near complete canal obliteration at L2-3 L3- 4 and severe multilevel canal stenosis of the C-spine. Entire spine including C spine shows areas of stenosis. Upon my discussion with patient had to be emergently taken to the OR for decompression. Intraop cultures were taken and no hardware placed at present time but it appears that patient will need more surgeries. The MRIs done were non contrast due to Acute renal failure on admission and cannot be repeated. Per dw plan is to treat as epidural abscess stone since patient was treated for few days with antibiotics prior to arrival and also due to patient needing hardware placement which can be seeded. Previously, Intubated, being weaned off sedation, UO is good peck in place. Not on any pressors. There is a plan wean and extubate. ID consulted for evaluation and Management of GN madonna bacteremia (E.coli CTX M negative) and possible epidural abscess. Reviewed overnight events. Discussed with RN. Tachycardic, BP went up, neuro assessment unchanged Patient underwent procedure 1 C2-C6 decompressive laminectomy, procedure to T2- T6 decompressive laminectomy. (Separate incisions) by Dr. Palmer Panda J collar in place. No fever Not on pressors. No rash, no diarrhea. Ileus No BM yet Low residuals Good UOP, 2500cc overnight Movement of fingers spontaneously below wrist R> L Ileus No BM yet Sputum cx pending All wound cx growing E Coli Antibiotics Ceftaz, Vanco IV, Flagyl IV Current Medications Medications (Trade) Dose Ordered Sig/Kaveh Route Start Time Stop Time Status Last Admin (Robaxin) 500 mg QID PO 01/03/18 09:00 01/09/18 08:38 (Flomax) 0.4 mg HS PO 01/03/18 21:00 01/08/18 20:08 (Lipitor) 40 mg DAILY PO 01/03/18 09:00 01/09/18 08:39 (NS Flush) 2 ml UNSCH PRN IV FLUSH 01/03/18 05:00 (NS Flush) 2 ml BID IV FLUSH 01/03/18 09:00 01/09/18 08:39 (Tylenol) 650 mg Q6H PRN PO 01/03/18 05:00 01/05/18 10:28 (Zofran Inj) 4 mg Q6H PRN IV PUSH 01/03/18 05:00 01/05/18 15:50 (Roxana-Colace) 1 tab BID PO 01/03/18 09:00 01/09/18 08:39 (Milk Of Magnesia Liq) 30 ml Q12H PRN PO 01/03/18 05:00 01/08/18 17:41 (Senokot) 17.2 mg Q12H PRN PO 01/03/18 05:00 (Dulcolax Supp) 10 mg DAILY PRN RECTAL 01/03/18 05:00 (Lactulose Liq) 30 ml DAILY PRN PO 01/03/18 05:00 01/06/18 11:39 (Tears Naturale Opth Soln) 1 drop Q8HR EACH EYE 01/03/18 14:00 01/09/18 06:14 (Albuterol Neb) 2.5 mg Q2HR NEB PRN NEB 01/03/18 10:00 01/09/18 11:30 (Pepcid) 20 mg BID PO 01/04/18 21:00 01/09/18 08:38 Potassium Chloride/Sodium Chloride 1,000 ml @ 125 mls/hr Q8H IV 01/05/18 12:30 01/09/18 13:22 (K-Phos Neutral) 250 mg Q6HR PO 01/05/18 18:00 01/09/18 13:19 (Roxicodone) 5 mg Q4H PRN PO 01/05/18 15:45 (Roxicodone) 10 mg Q6H PRN PO 01/05/18 15:45 01/08/18 20:09 (Morphine Inj) 2 mg Q4H PRN IV PUSH 01/05/18 15:45 01/08/18 03:42 (Duoneb Neb) 1 ampule Q6HR NEB NEB 01/06/18 16:00 01/09/18 07:43 Ceftazidime 2000 mg/Sodium Chloride 100 ml @ 200 mls/hr Q8H IV 01/06/18 14:00 01/09/18 13:21 Metronidazole 100 ml @ 100 mls/hr Q8H IV 01/06/18 14:00 01/09/18 06:14 Pharmacy Profile Note 0 ml @ 0 mls/hr UNSCH OTHER 01/06/18 13:30 Vancomycin HCl 1500 mg/Sodium Chloride 515 ml @ 257.5 mls/ hr Q12H IV 01/06/18 16:00 01/09/18 04:23 (Reglan Inj) 10 mg Q8HR IM 01/06/18 22:00 01/09/18 13:20 (Valium) 5 mg Q12HR PRN PO 01/06/18 21:00 Norepinephrine Bitartrate 4 mg/ Sodium Chloride 250 ml @ 7.5 mls/hr TITRATE PRN IV 01/06/18 19:30 01/08/18 22:30 (Brethine Inj) 1 mg UNSCH PRN SQ 01/06/18 19:30 Vasopressin 40 units/Dextrose 100 ml @ 1.5 mls/hr Q24H IV 01/06/18 19:19 01/08/18 03:47 Propofol 100 ml @ 2.826 mls/ hr TITRATE PRN IV 01/06/18 19:30 01/09/18 13:22 Fentanyl Citrate 250 ml @ 5 mls/hr TITRATE PRN IV 01/06/18 19:30 01/09/18 13:22 (SoluCORTEF INJ) 100 mg Q8H IV PUSH 01/06/18 20:00 01/09/18 13:20 (Versed Inj) 2 mg Q15M PRN IV PUSH 01/08/18 04:45 01/09/18 13:05 Midazolam HCl 100 ml @ 2 mls/hr TITRATE PRN IV 01/08/18 04:45 01/09/18 13:22 Lines Line sites with no e.o infection Past Medical History reviewed (Jaclyn Edward) Allergies: Coded Allergies: No Known Allergies (Unverified , 01/02/18) Objective . Vital Signs Date Time Temp Pulse Resp B/P (MAP) Pulse Ox O2 Delivery O2 Flow Rate FiO2 01/09/18 11:31 92 45 01/09/18 10:00 76 01/09/18 08:00 98.8 77 14 117/52 (73) 99 01/09/18 08:00 35 01/09/18 08:00 77 01/09/18 07:43 98 35 01/09/18 07:00 98 Mechanical Ventilator 40 01/09/18 06:00 81 01/09/18 04:00 75 01/09/18 04:00 99.1 78 14 129/57 (81) 99 01/09/18 04:00 50 01/09/18 03:20 98 30 01/09/18 02:00 77 01/09/18 00:00 79 01/09/18 00:00 99.0 79 15 134/67 (89) 98 01/09/18 00:00 50 01/08/18 23:47 99 30 01/08/18 22:30 93 98/47 01/08/18 22:00 85 01/08/18 20:00 85 01/08/18 20:00 97.7 92 15 182/86 (118) 100 01/08/18 20:00 50 01/08/18 19:45 100 40 01/08/18 19:00 99 Mechanical Ventilator 40 01/08/18 18:00 72 01/08/18 16:00 64 01/08/18 16:00 97.3 64 14 116/54 (74) 100 01/08/18 16:00 50 01/08/18 15:34 100 40 . Laboratory Tests Test 01/08/18 04:30 01/09/18 05:00 White Blood Count 13.2 TH/MM3 18.8 TH/MM3 Red Blood Count 3.21 MIL/MM3 2.91 MIL/MM3 Hemoglobin 9.9 GM/DL 8.9 GM/DL Hematocrit 27.7 % 25.2 % Mean Corpuscular Volume 86.5 FL 86.6 FL Mean Corpuscular Hemoglobin 30.8 PG 30.7 PG Mean Corpuscular Hemoglobin Concent 35.7 % 35.4 % Red Cell Distribution Width 15.6 % 15.7 % Platelet Count 133 TH/MM3 210 TH/MM3 Mean Platelet Volume 9.8 FL 9.1 FL Neutrophils (%) (Auto) 90.3 % 92.5 % Lymphocytes (%) (Auto) 6.3 % 3.4 % Monocytes (%) (Auto) 2.5 % 4.0 % Eosinophils (%) (Auto) 0.1 % 0.0 % Basophils (%) (Auto) 0.8 % 0.1 % Neutrophils # (Auto) 11.9 TH/MM3 17.4 TH/MM3 Lymphocytes # (Auto) 0.8 TH/MM3 0.6 TH/MM3 Monocytes # (Auto) 0.3 TH/MM3 0.8 TH/MM3 Eosinophils # (Auto) 0.0 TH/MM3 0.0 TH/MM3 Basophils # (Auto) 0.1 TH/MM3 0.0 TH/MM3 CBC Comment DIFF FINAL DIFF FINAL Differential Comment Laboratory Tests Test 01/08/18 04:30 01/09/18 05:00 Blood Urea Nitrogen 21 MG/DL 19 MG/DL Creatinine 0.69 MG/DL 0.68 MG/DL Random Glucose 126 MG/DL 98 MG/DL Total Protein 5.8 GM/DL 5.4 GM/DL Calcium Level 7.3 MG/DL 7.0 MG/DL Sodium Level 136 MEQ/L 143 MEQ/L Potassium Level 4.6 MEQ/L 4.0 MEQ/L Chloride Level 104 MEQ/L 110 MEQ/L Carbon Dioxide Level 26.5 MEQ/L 25.5 MEQ/L Anion Gap 6 MEQ/L 8 MEQ/L Estimat Glomerular Filtration Rate 114 ML/MIN 116 ML/MIN Protein Corrected Calcium 8.0 MG/DL 7.9 MG/DL Microbiology Date/Time Source Procedure Growth Status 01/08/18 22:22 Sputum Expectorated Sputum Gram Stain - Final Resulted 01/08/18 22:22 Sputum Expectorated Sputum Sputum Culture Pending Resulted 01/07/18 22:50 Abscess Back Gram Stain - Final Resulted 01/07/18 22:50 Wound Culture - Preliminary Escherichia Coli Resulted 01/07/18 22:50 Abscess Back Gram Stain - Final Resulted 01/07/18 22:50 Wound Culture - Preliminary Escherichia Coli Resulted 01/07/18 22:08 Wound Back Gram Stain - Final Resulted 01/07/18 22:08 Wound Culture - Preliminary Escherichia Coli Resulted Imaging Last Impressions Abdomen X-Ray 01/08/18 0600 Signed Impressions: Service Date/Time: Monday, January 08, 2018 03:53 - CONCLUSION: Decrease in colonic air filled distention. Pattern likely represents ileus. Marcial Redmond MD Thoracic Spine X-Ray 01/08/18 0000 Signed Impressions: Service Date/Time: Sunday, January 07, 2018 21:17 - CONCLUSION: Intraoperative spot images of the thoracic spine for localization purposes. Marcial Redmond MD Lumbar Spine X-Ray 01/08/18 0000 Signed Impressions: Service Date/Time: Sunday, January 07, 2018 21:17 - CONCLUSION: Single intraoperative spot image for localization purposes. Marcial Redmond MD Chest X-Ray 01/08/18 0000 Signed Impressions: Service Date/Time: Monday, January 08, 2018 19:43 - CONCLUSION: Left lower lobe atelectasis or consolidation. Harley Ritter MD Thoracic Spine MRI 01/06/18 0000 Signed Impressions: Service Date/Time: January 14:23 - CONCLUSION: 1. Multilevel cord compression is due predominantly to multiple disc protrusions. Significant cord compression is present at least 6 levels. There is also cord compression posteriorly at the T10 level due to a fluid collection in the midline which measures 6 mm in AP dimension. 2. There is also focal subcutaneous right parasagittal fluid collection at T10 and T11 which does not demonstrate peripheral contrast enhancement. An abscess is suspected. Jagjit Wilkinson MD Chest CT 01/06/18 0000 Signed Impressions: Service Date/Time: January 18:51 - CONCLUSION: 1. No abscess identified outside of the thoracic spinal canal. Small bilateral pleural effusions. NG coiled in the stomach. Frederick Rizzo MD Cervical Spine MRI 01/06/18 0000 Signed Impressions: Service Date/Time: January 14:23 - CONCLUSION: 1. Severe degenerative changes with severe spinal stenosis at C2-3, C3-4, C4-5 and C5-6. There is moderate spinal stenosis at C6-7 and C7-T1. Overall assessment of the cord is limited due to motion artifact. I do not definitively see edema within the cord however there is significant flattening of the cord at multiple levels. 2. No significant abnormal contrast enhancement identified. Leonardo Sorenson MD Brain MRI 01/06/18 0000 Signed Impressions: Service Date/Time: January 14:23 - CONCLUSION: 1. Negative MRI of the brain with and without contrast. Jagjit Wilkinson MD Abdomen/Pelvis CT 01/06/18 0000 Signed Impressions: Service Date/Time: January 18:51 - CONCLUSION: 1. Multiple laminectomy defects in the lumbar spine with some locules of air both within the canal and within the L2 vertebral body which could be related to infection. Cannot exclude abscess formation within the canal. 2. 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 3. Diffuse ileus. 4. Small effusions and mild anasarca. 5. Peck catheter in decompressed bladder. NG coiled in stomach. Frederick Rizzo MD Lumbar Spine MRI 01/05/18 0000 Signed Impressions: Service Date/Time: Friday, January 05, 2018 14:27 - CONCLUSION: 1. Extensive postsurgical changes with apparent left decompressive laminectomy leftward from L1 to through L4-5. 2. There is a well-circumscribed 1.4 cm cystic structure midline just posterior to the thecal sac at L4-5 which was not clearly present previously. May represent a small seroma which could result in some degree of central spinal stenosis despite the left laminectomy. 3. In addition, severe narrowing of the right L4-5 neural foramen with almost certain compromise of the right L4 nerve root. Emir Bowles MD Physical Exam GENERAL: This is a well-nourished, well-developed patient, intubated, sedated. SKIN: Warm and dry. HEAD: Normocephalic. EYES: Pupils equal round. No scleral icterus. No injection or drainage. ENT: No thrush, dry oral mucosa. Nose without bleeding. Airway patent. NECK: Trachea midline. [place] J collar in place. CARDIOVASCULAR: Tachycardic. RESPIRATORY: Diminished breath sounds. No wheezes, rales, or rhonchi. Intubated on mechanical ventilation. GASTROINTESTINAL: Abdomen non-tender, soft, slightly distended. Hypoactive bowel sounds. NG tube in place clamped. : Peck catheter draining gila colored urine. Significant scrotal edema. BACK: GUIDO drain x 4, one cervical, one thoracic and 2 lumbar - all with serosanguineous drainage. Surgical incisions healing well per nursing report. MUSCULOSKELETAL: Extremities without clubbing, cyanosis. Generalized edema +1 of extremities. NEUROLOGICAL: Intubated, sedated. LINES: Left IJ central line in place. (Jaclyn Edward) Assessment & Plan Remarks Severe Sepsis present on admission (leucocytosis, Tachycardia, source: bacteremia and epidural abscess. E.coli bacteremia high grade E.Coli UTI recent prostate biopsy. 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 (Cervical,Thoracic and Lumbar on 4 spots) Recent history of prostate biopsy as risk factor for E.coli bacteremia. Paraparesis present on admission. Recs: Continue Ceftazidime Continue Vanco IV (for possible MRSA PNA) Continue Flagyl sputum cx pending Follow cultures Follow clinically (Jaclyn Edward) Remarks The exam, history, and the medical decision-making described in the above note were completed with the assistance of the mid-level provider. I reviewed and agree with the findings presented. I attest that I had a [id number] encounter with the patient on the same day, and personally performed and documented my assessment and findings in the medical record. Continue Ceftazidime IV for E.coli Sepsis and Osteomyelitis of C,T,L spine plus epidural abscesses. Continue Vanco IV for now (for possible MRSA pneumonia) Continue Flagyl till cultures finalized. Follow clinically and cultures. dw significant other yday that in view of C spine infection will not do APRYL. (Shanda Charles MD) Jaclyn Edward Jan 09, 2018 14:20 Shanda Charles MD Jan 09, 2018 17:46
--- NOTE | 2018-01-09 16:01 | HHI.GIFU ---
Subjective Remarks random eye movement with tachtile stimulation. Morbid Obese/Large round abd. taut, Hx Constipation, Family States patient took fiber daily Fever today , BP irratic ventilator management (Keira Anderson) Objective Vitals I&O Vital Signs Date Time Temp Pulse Resp B/P (MAP) Pulse Ox O2 Delivery O2 Flow Rate FiO2 01/09/18 15:19 99 45 01/09/18 11:31 92 45 01/09/18 10:00 76 01/09/18 08:00 98.8 77 14 117/52 (73) 99 01/09/18 08:00 35 01/09/18 08:00 77 01/09/18 07:43 98 35 01/09/18 07:00 98 Mechanical Ventilator 40 01/09/18 06:00 81 01/09/18 04:00 75 01/09/18 04:00 99.1 78 14 129/57 (81) 99 01/09/18 04:00 50 01/09/18 03:20 98 30 01/09/18 02:00 77 01/09/18 00:00 79 01/09/18 00:00 99.0 79 15 134/67 (89) 98 01/09/18 00:00 50 01/08/18 23:47 99 30 01/08/18 22:30 93 98/47 01/08/18 22:00 85 01/08/18 20:00 85 01/08/18 20:00 97.7 92 15 182/86 (118) 100 01/08/18 20:00 50 01/08/18 19:45 100 40 01/08/18 19:00 99 Mechanical Ventilator 40 01/08/18 18:00 72 01/08/18 16:00 64 01/08/18 16:00 97.3 64 14 116/54 (74) 100 01/08/18 16:00 50 I/O 01/08/18 01/08/18 01/08/18 01/09/18 01/09/18 01/09/18 07:00 15:00 23:00 07:00 15:00 23:00 Intake Total 750 ml 2000 ml 200 ml Output Total 100 ml 1387 ml 2605 ml Balance 650 ml 613 ml -2405 ml Intake Oral 0 ml IV Total 750 ml 2000 ml 100 ml Tube Irrigant 100 ml Output Urine Total 1250 ml 2500 ml Gastric Drainage Total 50 ml 50 ml Drainage Total 100 ml 87 ml 55 ml # Bowel Movements 0 0 Laboratory Laboratory Tests Test 01/09/18 04:09 01/09/18 05:00 01/09/18 05:20 Blood Gas Puncture Site ART LINE Blood Gas Patient Temperature 98.6 Blood Gas HCO3 25 Blood Gas Base Excess 1.3 Blood Gas Oxygen Saturation 96 Arterial Blood pH 7.47 Arterial Blood Partial Pressure CO2 35 Arterial Blood Partial Pressure O2 102 Arterial Blood Oxygen Content 14.7 Arterial Blood Carboxyhemoglobin 1.4 Arterial Blood Methemoglobin 1.3 Blood Gas Hemoglobin 10.8 Oxygen Delivery Device VENTILATOR Blood Gas Ventilator Setting PRVC/AC14/750/IT1.0/ Blood Gas Inspired Oxygen 30 White Blood Count 18.8 Red Blood Count 2.91 Hemoglobin 8.9 Hematocrit 25.2 Mean Corpuscular Volume 86.6 Mean Corpuscular Hemoglobin 30.7 Mean Corpuscular Hemoglobin Concent 35.4 Red Cell Distribution Width 15.7 Platelet Count 210 Mean Platelet Volume 9.1 Neutrophils (%) (Auto) 92.5 Lymphocytes (%) (Auto) 3.4 Monocytes (%) (Auto) 4.0 Eosinophils (%) (Auto) 0.0 Basophils (%) (Auto) 0.1 Neutrophils # (Auto) 17.4 Lymphocytes # (Auto) 0.6 Monocytes # (Auto) 0.8 Eosinophils # (Auto) 0.0 Basophils # (Auto) 0.0 CBC Comment DIFF FINAL Differential Comment Blood Urea Nitrogen 19 Creatinine 0.68 Random Glucose 98 Total Protein 5.4 Calcium Level 7.0 Sodium Level 143 Potassium Level 4.0 Chloride Level 110 Carbon Dioxide Level 25.5 Anion Gap 8 Estimat Glomerular Filtration Rate 116 Protein Corrected Calcium 7.9 Magnesium Level 2.1 Date/Time Source Procedure Growth Status 01/05/18 04:00 Blood Peripheral Aerobic Blood Culture - Preliminary NO GROWTH IN 4 DAYS Resulted 01/05/18 04:00 Blood Peripheral Anaerobic Blood Culture - Preliminary NO GROWTH IN 4 DAYS Resulted 01/08/18 22:22 Sputum Expectorated Sputum Gram Stain - Final Resulted 01/08/18 22:22 Sputum Expectorated Sputum Sputum Culture Pending Resulted 01/02/18 23:35 Urine Clean Catch Urine Culture - Final Escherichia Coli Complete 01/07/18 22:50 Abscess Back Gram Stain - Final Resulted 01/07/18 22:50 Wound Culture - Preliminary Escherichia Coli Resulted Imaging Last Impressions Abdomen X-Ray 01/08/18 0600 Signed Impressions: Service Date/Time: Monday, January 08, 2018 03:53 - CONCLUSION: Decrease in colonic air filled distention. Pattern likely represents ileus. Marcial Redmond MD Thoracic Spine X-Ray 01/08/18 0000 Signed Impressions: Service Date/Time: Sunday, January 07, 2018 21:17 - CONCLUSION: Intraoperative spot images of the thoracic spine for localization purposes. Marcial Redmond MD Lumbar Spine X-Ray 01/08/18 0000 Signed Impressions: Service Date/Time: Sunday, January 07, 2018 21:17 - CONCLUSION: Single intraoperative spot image for localization purposes. Marcial Redmond MD Chest X-Ray 01/08/18 0000 Signed Impressions: Service Date/Time: Monday, January 08, 2018 19:43 - CONCLUSION: Left lower lobe atelectasis or consolidation. Harley Ritter MD Thoracic Spine MRI 01/06/18 0000 Signed Impressions: Service Date/Time: January 14:23 - CONCLUSION: 1. Multilevel cord compression is due predominantly to multiple disc protrusions. Significant cord compression is present at least 6 levels. There is also cord compression posteriorly at the T10 level due to a fluid collection in the midline which measures 6 mm in AP dimension. 2. There is also focal subcutaneous right parasagittal fluid collection at T10 and T11 which does not demonstrate peripheral contrast enhancement. An abscess is suspected. Jagjit Wilkinson MD Chest CT 01/06/18 0000 Signed Impressions: Service Date/Time: January 18:51 - CONCLUSION: 1. No abscess identified outside of the thoracic spinal canal. Small bilateral pleural effusions. NG coiled in the stomach. Frederick Rizzo MD Cervical Spine MRI 01/06/18 0000 Signed Impressions: Service Date/Time: January 14:23 - CONCLUSION: 1. Severe degenerative changes with severe spinal stenosis at C2-3, C3-4, C4-5 and C5-6. There is moderate spinal stenosis at C6-7 and C7-T1. Overall assessment of the cord is limited due to motion artifact. I do not definitively see edema within the cord however there is significant flattening of the cord at multiple levels. 2. No significant abnormal contrast enhancement identified. Leonardo Sorenson MD Brain MRI 01/06/18 Signed Impressions: Service Date/Time: January 14:23 - CONCLUSION: 1. Negative MRI of the brain with and without contrast. Jagjit Wilkinson MD Abdomen/Pelvis CT 01/06/18 0000 Signed Impressions: Service Date/Time: January 18:51 - CONCLUSION: 1. Multiple laminectomy defects in the lumbar spine with some locules of air both within the canal and within the L2 vertebral body which could be related to infection. Cannot exclude abscess formation within the canal. 2. 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 3. Diffuse ileus. 4. Small effusions and mild anasarca. 5. Reyna catheter in decompressed bladder. NG coiled in stomach. Frederick Rizzo MD Lumbar Spine MRI 01/05/18 0000 Signed Impressions: Service Date/Time: Friday, January 05, 2018 14:27 - CONCLUSION: 1. Extensive postsurgical changes with apparent left decompressive laminectomy leftward from L1 to through L4-5. 2. There is a well-circumscribed 1.4 cm cystic structure midline just posterior to the thecal sac at L4-5 which was not clearly present previously. May represent a small seroma which could result in some degree of central spinal stenosis despite the left laminectomy. 3. In addition, severe narrowing of the right L4-5 neural foramen with almost certain compromise of the right L4 nerve root. Emir Bowles MD Physical Exam HEENT: Normocephalic; atraumatic, ETT CHEST: Respirations synchronized with vent, mechanically ventilated via ETT CARDIAC: RRR ABDOMEN: soft, bowel sounds present X 4 quads, but soft, NG to LIWS, large , taut, Mild distention GLASS BEVELLER: Sedated, unresponsive (Keira Anderson) Assessment and Plan Plan ASSESSMENT -abd distention, abd pain - ileus. no BM in 4 d and last BM scant. On pain meds. KUB 4/4 mildly prominent loops small and large bowel, suggestive ileus. d/w attending - anemia - likely multifactorial HH stable - elevated LFTs - unclear etiology...DILI vs sepsis vs other etiology. hep panel neg. - leukocytosis - poss epidural abscess, bacteremia, ID following - urosepsis, spinal cord compression s/p decompression, VALENCIA, thrombocytopenia, - per attending. ID, urology following (01/07) Change in clinical condition overnight. Respiratory distress and bilateral lower extremity weakness with progressive weakness of upper extremities. Pt was intubated and taken to OR for C2-C6 decompressive laminectomy and T2-T6 decompressive laminectomy. Pt remains on sedation and mechanically ventilated. Per RN pt had no response to Relistor. NG was placed yesterday, clamped most of the night for surgery, currently to [facility] with 50 mL of output. Abdomen continues to be distended but seems more soft today. No BMs. Bowel sounds active. Possible neurogenic component to ileus. KUB (01/07) Diffuse gas filled distention of colon and small bowel again likely representing ileus. No significant interval change. NG in place. Significant drop in H/H last night down to 6.6/19, currently 8.6/24.2 Thrombocytopenia noted- plts 97. 2 U plts transfused last night Elevated LFTs- AST and ALT WNL. Alk phos trending down. T bili-2.6. CT abdomen and pelvis W IV contrast (01/06) --> Diffuse ileus. Small effusions and mild anasarca. NG coiled in stomach. 01/08/18 decrease in colonic air, Pattern likely ileus. 01/09/18, Still no BM, 1 week., Ileus slow resolution. But Abd. taut, less distention,. PLAN - NGT to LIWS Recheck KUB in am, once ileus resolved, consider SS enema - Dulcolax supp. daily - Reglan - Monitor HGB, labs - Supportive care - Further recommendations based on clinical course Pt has been seen and examined by myself and Dr. Huang and this note is written on his behalf (Keira Anderson) Physician Comments Seen and examined with [employer], still no BM. Abdomen softer. KUB in am. ? decompression colonoscopy (Mackenzie Huang MD) Keira Anderson Jan 09, 2018 16:01 Mackenzie Huang MD Jan 09, 2018 17:44
--- NOTE | 2018-01-09 17:12 | HHI.CCPN ---
Subjective Remarks/Hospital Course 67-year-old male who underwent a prostate biopsy one week ago, on 12/27/17. On the evening of 12/29/17 he developed fever and chills, low back pain, and lower extremity numbness and paresthesias and muscle spasm. He was seen by his primary care physician and was given medication including muscle relaxant. The symptoms persisted and he returned to his primary care physician on Wednesday, and was given additional medications including Cipro. He awoke on 01/02/2018 with increased lower extremity weakness and numbness, and fell in the shower in the morning, after which he was unable to ambulate or lift his legs off the bed, and continued to experience pain in the lower back. He went to the emergency room at [facility], and was given additional medication injections. He could not lift his legs off the bed or ambulate in the emergency room, and was taken out to his car and lifted into the car and sent home again. He fell in the driveway again trying to get back into the house. He apparently did not urinate for the entire day. He has no complaint of pain which is numbness paresthesias in the upper extremities. No numbness or paresthesias over the chest or abdomen or pelvic region. The MRI of thoracic spine shows severe canal stenosis at T2-3 and T5-6 level with cord compressions, complete or near complete canal obliteration at L2 -3 L3-4 and severe multilevel canal stenosis of the C-spine. The patient is emergently taken to operating room by Dr. Chakraborty. Subjective 01/04: Extubated late afternoon yesterday without any complications. Some sensation bilateral lower extremities. Strength 4-5 bilateral upper extremities. Afebrile. Hemodynamically stable. 01/06: RECONSULT NOTE: reconsulted for respiratory distress. in brief, 67yM with recent prostate biopsy complicated by e. coli bacteremia and lumbar epidural abscess. he was stable and sent to the floor where he developed respiratory distress, fever, tachycardia, tachypnea, diaphoresis. on my exam, patient is in distress, appears toxic. repeat MRI spine demonstrates fluid collections and evidence of spinal compression in cervical, thoracic, and lumbar spinal areas concerning for rapidly ascending abscess with neurologic compromise. also, patient was weak in b/l LEs overnight and now is nearly a complete quad, with only 3/5 distal upper extremity strength left and 1/5 proximal upper extremity strength. 01/07: Persistent septic course. Unable to wean from mechanical ventilation. Infectious Disease service is guiding antimicrobial therapy. 01/08: Back from OR. Vent synchrony much improved with large tidal volume breaths. Urine output acceptable, gas exchange acceptable. 01/09: Continued septic course requiring vasopressors, diffuse general edema. Objective Vital Signs Date Time Temp Pulse Resp B/P (MAP) Pulse Ox O2 Delivery O2 Flow Rate FiO2 01/09/18 16:00 67 01/09/18 16:00 45 01/09/18 16:00 99.7 14 98/48 (65) 98 01/09/18 07:00 Mechanical Ventilator 01/06/18 18:06 6.00 Intake and Output 01/09/18 01/09/18 01/10/18 08:00 16:00 00:00 Intake Total 200 ml Output Total 2605 ml Balance -2405 ml Result Diagram: 01/09/18 0500 01/09/18 0500 Other Results Laboratory Tests Test 01/09/18 04:09 Blood Gas Puncture Site ART LINE Blood Gas Patient Temperature 98.6 Blood Gas HCO3 25 mmol/L (22-26) Blood Gas Base Excess 1.3 mmol/L (-2-2) Blood Gas Oxygen Saturation 96 % (90-100) Arterial Blood pH 7.47 (7.380-7.420) Arterial Blood Partial Pressure CO2 35 mmHg (38-42) Arterial Blood Partial Pressure O2 102 mmHg (61-120) Arterial Blood Oxygen Content 14.7 Vol % (12.0-20.0) Arterial Blood Carboxyhemoglobin 1.4 % (0-4) Arterial Blood Methemoglobin 1.3 % (0-2) Blood Gas Hemoglobin 10.8 G/DL (12.0-16.0) Oxygen Delivery Device VENTILATOR Blood Gas Ventilator Setting [facility]/AC14/750/IT1.0/ Blood Gas Inspired Oxygen 30 % Imaging Last Impressions Thoracic Spine MRI 01/03/18 0000 Signed Impressions: Service Date/Time: Wednesday, January 03, 2018 00:38 - CONCLUSION: Multilevel disc abnormalities. Severe canal stenosis at T2-3 and T5-6 with cord compression and mild signal changes in the cord at T2-3 and moderate signal changes within the cord at T5-6. Less severe changes at L2 additional levels as described. Harley Herrera MD Lumbar Spine MRI 01/03/18 0000 Signed Impressions: Service Date/Time: Wednesday, January 03, 2018 00:38 - CONCLUSION: Complete or near complete canal obliteration at L2-3, L3-4 and L4-5 with less severe compromise at L1-2 and T12-L1. Harley Herrera MD Cervical Spine MRI 01/03/18 0000 Signed Impressions: Service Date/Time: Wednesday, January 03, 2018 00:38 - CONCLUSION: Severe multilevel canal stenosis. Findings appear to be most critical at C4-5 and C5-6 where AP canal dimension is reduced to 4-5 mm, however also quite severe at C2-3 and C3-4. Harley Herrera MD Chest X-Ray 01/02/182 Signed Impressions: Service Date/Time: Tuesday, January 02, 2018 23:11 - CONCLUSION: Mild basilar atelectasis or scarring. Harley Herrera MD Procedures L1 through L5 decompressive laminectomy. Objective Remarks GENERAL: 67-year-old male, sedated, intubated. SKIN: Cool. HEAD: Normocephalic. EYES: No scleral icterus. No injection or drainage. NECK: Supple, trachea midline. Orally intubated. CARDIOVASCULAR: tachycardic rate, regular rhythm. sinus. RESPIRATORY: equal chest rise. clear breath sounds. mechanically ventilated. GASTROINTESTINAL: Abdomen soft, mildly distended. nontender. no guarding. BS few. MUSCULOSKELETAL: Diffuse edema, well perfused limbs. NEURO EXAM: Heavily sedated, breathes over ventilator. No movement feet to stimulation, but sedation. Wiggles right hand digits. A/P Assessment and Plan Assessment: 67-year-old male now postop day 3 status post lumbar laminectomy and decompression for epidural abscess who presents now with rapidly progressive spinal abscess with rapidly worsening myelopathy and neurologic function. It appears that the patient remains bacteremic and is very toxic in severe sepsis leading to septic shock and decompensating manner. Dr. Chakraborty, Dr. Charles, and myself had multiple conversations. This patient is very critically ill and is very likely not survive this illness. However, his only chance of meaningful recovery would be emergent decompression and washout. After discussion with the patient, and Dr. Chakraborty, we all agreed to proceed. I intubated the patient, see separate procedure notes for details, and placed arterial line and central line. Neuro/Psych: Postop day #5 Bilateral L1-2, L2-3, L3 4, L4 5 decompressive semi-laminectomy, medial facetectomy for spinal canal decompression. Depression/anxiety Ascending myelopathy Spinal abscess C-spine revealed cord compression C2 through C4 and C4 through C6. T-spine 2-3/ 5 6 and lumbar spine T throughout L2 with essentially ablation of the cord from L2 through L5. Status post emergent surgery per Dr. Chakraborty 4/2 Acetaminophen 650 mg p.o. every 6 hours as needed pain 1-5/fever Morphine sulfate 2 mg IV every 8 as needed pain 6 or 10 Neurochecks Propofol and fentanyl for goal RASS -2, intubated CV: Dyslipidemia Severe sepsis Early septic shock Maintenance fluids at 125 cc/hr Not requiring vasopressors and/or antihypertensives Currently on atorvastatin 40 mg p.o. daily. Hospital substitution for rosuvastatin 20 mg p.o. daily Given rapidly declining status, we will plan to have norepinephrine and vasopressin available Given duration and severity of critical illness, will likely need stress dose steroids. Will start empirically with hydrocortisone 100 mg IV every 8 hours. Vasopressors increasing. Resp: Acute hypoxic hypercarbic respiratory failure Vent bundle Nebs Wean FiO2 for goal SPO2 greater than 90% No weaning of mechanical ventilation until shock improves and source control is contained Gas exchange acceptable. GI: Postoperative ileus NPO Place gastric tube to suction Likely ileus is multifactorial including severe sepsis and postoperative pain, likely compounded by myelopathy and there could be a neurogenic component to his ileus Famotidine for GI prophylaxis Docusate sodium/senna 1 tablet twice daily for bowel regimen GI consulted : BPH Maintain Reyna catheter Currently on tamsulosin 0.4 mg p.o. daily Recent prostate biopsy. Pathology pending Endo: Sliding scale insulin Accu-Cheks to maintain euglycemia/low regimen Renal: Acute kidney injury- improving Avoid nephrotoxic drugs Monitor urine output Accurate I's and O's Heme: Thrombocytopenia likely secondary to sepsis Anemia secondary to acute blood loss Haptoglobin high. LDH normal. Peripheral smear no signs of schistocytes total bilirubin normal. Status post 2 pack platelets 4/3. Followed by hematology 4 units packed red cells, 4 units FFP. ID: E. coli bacteremia E. coli spinal abscess ID consulted Broad-spectrum metabolic coverage Emergent decompression + washout FEN Replace electrolytes as clinically indicated MSK: Osteoporosis Holding meloxicam 7.5 mg p.o. twice daily. PT/OT evaluate and treat Access -4/5 left subclavian 9 Syriac introducer sheath 4/5 left radial arterial line Reyna Prophylaxis -GI -famotidine -DVT -SCD/holding pharmacologic prophylaxis until acute neurosurgery/severe thrombocytopenia Overall impression: Critically ill with severe sepsis persisting despite surgical source control. Deteriorating hemodynamics. Prognosis poor. Critical Care 38 mins Vick Mayes MD Jan 09, 2018 17:12
[2018-01-09] MEDS: VASOPRESSIN INJ 40 UNITS in DEXTROSE 5% IN WATER 100ML INJ 98 ML IV SCH ×2 (19:32)
[2018-01-09] MEDS: TAMSULOSIN HCL 0.4 MG CAP PO SCH (20:57)
[2018-01-10] VITALS (17 sets, daily range): BP systolic 110–149; BP diastolic 45–72; PULSE 48–71; RESP 14–15; TEMP 97.4–97.9; O2SAT 99–100
[2018-01-10] MEDS: BISACODYL 10 MG SUPP RECTAL SCH ×2 (00:46→08:12)
[2018-01-10] MEDS: POTASSIUM PHOSPHATE/SODIUM PHOSPHATE 250 MG TAB PO SCH ×5 (00:46→23:01)
[2018-01-10] MEDS: RESP: ALBUTEROL 2.5 MG/IPRATROPIUM 0.5 MG NEB (SCH) NEB ×3 (03:42→14:33)
[2018-01-10] MEDS: NS + KCL 20 MEQ INJ 1,000 ML IV SCH ×3 (04:30→20:23)
[2018-01-10] MEDS: PROPOFOL 1000 MG/100 ML INJ 100 ML IV PRN ×4 (04:30→22:55)
[2018-01-10] MEDS: HYDROCORTISONE SOD SUCCINATE 100 MG VIAL IV PUSH SCH ×3 (04:56→20:23)
[2018-01-10] MEDS: metroNIDAZOLE 500 MG INJ 100 ML IV SCH ×3 (04:57→21:56)
[2018-01-10] MEDS: METOCLOPRAMIDE HCL 10 MG/2 ML VIAL IM SCH ×3 (04:57→21:56)
[2018-01-10] MEDS: VANCOMYCIN 1,500 MG/NS 500 ML IV SCH ×4 (04:57→16:00)
[2018-01-10] MEDS: ARTIFICIAL TEARS OPTH SOLN 15 ML BTL EACH EYE SCH ×3 (05:30→21:56)
[2018-01-10] MEDS: cefTAZidime INJ 2,000 MG in SODIUM CHLORIDE 0.9% INJ 100 ML IV SCH ×3 (05:31→23:01)
[2018-01-10] MEDS: fentaNYL DRIP 250 ML IV PRN (05:31)
--- NOTE | 2018-01-10 05:32 | RADRPT ---
EXAM DATE/TIME: 01/10/2018 04:40 [facility] COMPARISON: ABDOMEN KUB ONLY, January 08, 2018, 3:53. INDICATIONS : Ileus. MEDICAL HISTORY : Benign prostatic hyperplasia, (BPH). Cord compression. SURGICAL HISTORY : Prostate biopsy. Kidney biopsy. ENCOUNTER: Subsequent ACUITY: 4 - 6 days PAIN SCORE: 0/10 LOCATION: Bilateral abdomen FINDINGS: Examination of the abdomen demonstrates gaseous distention of bowel loops again seen. No free air is identified. No organomegaly is evident. Osseous structures are intact. Postsurgical changes with d rain in place. CONCLUSION: Gaseous distention of multiple bowel loops not significantly changed. Hussein Fontaine MD on January 10, 2018 at 5:29 Board Certified Radiologist. This report was verified electronically.
[2018-01-10 05:42] LABS: AUTOMATED NEUTROPHIL # 15.2 TH/MM3 (1.8-7.7); BASOPHIL % 0.1 % (0.0-2.0); EOSINOPHIL % 0.1 % (0.0-4.0); HEMATOCRIT 22.3 % (39.0-51.0); HEMOGLOBIN 7.7 GM/DL (13.0-17.0); LYMPH % 4.7 % (9.0-44.0); LYMPHOCYTE # 0.8 TH/MM3 (1.0-4.8); MEAN CELL VOLUME 87.3 FL (80.0-100.0); MEAN CORPUSCULAR HEMOGLOBIN 30.2 PG (27.0-34.0); MEAN CORPUSCULAR HGB CONC 34.6 % (32.0-36.0); MEAN PLATELET VOLUME 8.4 FL (7.0-11.0); MONO % 3.9 % (0.0-8.0); MONOCYTE # 0.7 TH/MM3 (0-0.9); NEUT % 91.2 % (16.0-70.0); PLATELET COUNT 246 TH/MM3 (150-450); RED BLOOD COUNT 2.55 MIL/MM3 (4.50-5.90); RED CELL DISTRIBUTION WIDTH 15.2 % (11.6-17.2); WHITE BLOOD COUNT 16.7 TH/MM3 (4.0-11.0)
[2018-01-10 06:23] LABS: ALBUMIN 1.2 GM/DL (3.4-5.0); BICARBONATE 24.1 MEQ/L (21.0-32.0); CALCIUM 6.8 MG/DL (8.5-10.1); CALCIUM-PROTEIN CORRECTED 7.8 MG/DL (8.5-10.1); CREATININE 0.6 MG/DL (0.60-1.30); TOTAL BILIRUBIN ADULT 0.8 MG/DL (0.2-1.0); TOTAL PROTEIN 5.1 GM/DL (6.4-8.2)
[2018-01-10 07:44] LABS: BANDS 8 % (0-6); LYMPHOCYTES 2 % (9-44); MYELOCYTES 1 % (0-0); NEUTROPHIL # MANUAL DIFF 16.4 TH/MM3 (1.8-7.7); POLYS (SEG NEUTROPHILS) 89 % (16-70)
[2018-01-10] MEDS: SODIUM CHLORIDE 0.9% FLUSH 10 ML FLUSH IV FLUSH SCH ×2 (08:11→20:23)
[2018-01-10] MEDS: DOCUSATE SODIUM 50 MG/SENNA 8.6 MG TAB PO SCH ×2 (08:12→20:24)
[2018-01-10] MEDS: METHOCARBAMOL 500 MG TAB PO SCH ×4 (08:12→20:24)
[2018-01-10] MEDS: FAMOTIDINE 20 MG TAB PO SCH ×2 (08:12→20:24)
[2018-01-10] MEDS: ATORVASTATIN 40 MG TAB PO SCH (08:12)
[2018-01-10] MEDS: MIDAZOLAM 100 MG/100 ML INJ 100 ML IV PRN (08:13)
--- NOTE | 2018-01-10 11:20 | HHI.NSPN ---
(Tigre Estrada) History Chief Complaint: Unable to obtain due to patient's clinical condition. (Tigre Estrada) Interval History 01/03: 67-year-old male who underwent a prostate biopsy one week ago, on . He states that on the evening of 12/29/17 on into the morning of 12/30/17, he developed fever and chills, low back pain, and lower extremity numbness and paresthesias and muscle spasm. He was seen by his primary care physician and was given medication including muscle relaxant. The symptoms persisted and he returned to his primary care physician on Wednesday , 01/01/18 and was given additional medications including Cipro. He awoke on 01/02/2018 with increased lower extremity weakness and numbness, and fell in the shower in the morning, after which he was unable to ambulate or lift his legs off the bed, and continued to experience pain in the lower back. He went to the emergency room at [facility], and was given additional medication injections. He states that he could not lift his legs off the bed or ambulate in the emergency room, and was taken out to his car and lifted into the car and sent home again. He fell in the driveway again trying to get back into the house. He apparently did not urinate for the entire day. He has no complaint of pain which is numbness paresthesias in the upper extremities. No numbness or paresthesias over the chest or abdomen or pelvic region. The patient was emergently taken to the operating room for a bilateral L1-2, L2- 3, L3 4, L4 5 decompressive semi-laminectomy, medial facetectomy for spinal canal decompression. Post-operatively the patient remained intubated and was admitted to [facility] for further care and monitoring. 01/04: When seen this afternoon the patient has been extubated. He is awake and alert and readily interacts. He does report pain to the neck and the lower back. He has no numbness, tingling or weakness to the upper extremities but does say he will have pain shooting down them if he moves wrong. He denies any pain to the lower extremities but does have numbness to both feet and about the only movement he is able to do is move his knees medially and laterally. Upon examination the patient's sensorimotor exam is improved from pre-operatively 01/05: The patient desaturated this morning and a Halicat was initiated. From the EMR Nursing reported that the patient was lethargic and difficult to arouse. His sat was in the 80s and he did have a fever of 102F. He was therefore transferred back to [facility]. A chest x-ray demonstrated a left lower lobe consolidation. His blood, urine and lumbar spine wound cultures have all come back positive for Escherichia coli. When seen this afternoon the patient was awake, alert and readily interacted. He was visiting with his significant other. His upper extremity examination was variable with some improvement and some decline. His sensation and motor strength to the lower extremities had declined. The surgical incision looked good upon examination and the GUIDO drain was removed. 01/06: This afternoon the patient is on a nonrebreather mask when seen, he is tachypneic and laboured. He says he has some low back pain, especially at night. He denies any neck pain or headache. He has worsening of his muscle strength to the upper extremities and it remains poor to the lower. 01/07: The patient was urgently intubated yesterday evening for worsening respiratory status and remains so this morning. He underwent emergent surgery for decompression of the cervical and thoracic spines. Post-operatively he returned to [facility]. He is sedated with propofol. He has vasopressin and norepinephrine infusing for blood pressure support. He is obtunded but sedated and there is no response to any stimulation. 01/08: Patient sedated with Diprivan and fentanyl drips. He was biting the tube and was also recently placed on Versed. He is not opening eyes or following commands. He remains sedated for vent synchrony. 01/09: Pt sedated with Diprivan and Fentanyl drips. He nods his head slightly to questions. Intubated a/c. RN reports all bandages are dry with only mild post op staining. 01/10: When seen the patient is lethargic. He is sedated with propofol and midazolam. He continues to be intubated and mechanically ventilated. His significant other stated that the patient was awake a few minutes ago. When he called the patient's name he opened both eyes. He did blink to command. There was no motor response to any stimulation. (Tigre Estrada) System Review Comments Unable to obtain due to patient's clinical condition. (Tigre Estrada) Exam Results 01/08/18 01/08/18 01/09/18 01/09/18 01/10/18 01/10/18 06:00 18:00 06:00 18:00 06:00 18:00 Intake Total 1962 ml 0 ml 2200 ml 150 ml 1250 ml 515 ml Output Total 100 ml 1387 ml 2605 ml 1232 ml 680 ml Balance 1862 ml -1387 ml -405 ml -1082 ml 570 ml 515 ml Intake Oral 0 ml IV Total 1365 ml 2100 ml 1150 ml 515 ml Packed Cells 400 ml Platelets 197 ml Tube Irrigant 100 ml 150 ml 100 ml Output Urine Total 1250 ml 2500 ml 1150 ml 600 ml Gastric Drainage Total 50 ml 50 ml 50 ml Drainage Total 100 ml 87 ml 55 ml 82 ml 30 ml # Bowel Movements 0 0 0 0 Vital Signs Date Time Temp Pulse Resp B/P (MAP) Pulse Ox O2 Delivery O2 Flow Rate FiO2 01/10/18 10:00 57 01/10/18 08:00 45 01/10/18 08:00 97.9 68 14 132/64 (86) 100 Automatic Cuff 01/10/18 08:00 64 01/10/18 07:49 100 35 01/10/18 07:00 99 Mechanical Ventilator 45 01/10/18 06:00 62 01/10/18 04:00 45 01/10/18 04:00 97.8 55 14 149/72 (97) 100 01/10/18 04:00 55 01/10/18 03:42 100 45 01/10/18 02:00 52 01/10/18 00:00 99 45 01/10/18 00:00 52 01/10/18 00:00 45 01/10/18 00:00 97.4 51 14 132/66 (88) 99 01/09/18 22:00 58 01/09/18 20:00 97.9 63 14 122/64 (83) 98 01/09/18 20:00 63 01/09/18 20:00 45 4/8/18 19:32 66 113/54 01/09/18 19:24 98 45 01/09/18 19:00 99 Mechanical Ventilator 45 01/09/18 18:00 71 01/09/18 16:00 67 01/09/18 16:00 45 01/09/18 16:00 99.7 67 14 98/48 (65) 98 01/09/18 15:19 99 45 01/09/18 14:00 97 01/09/18 12:00 98.6 88 16 144/66 (92) 99 01/09/18 12:00 45 01/09/18 12:00 88 01/09/18 11:31 92 45 01/09/18 10:00 76 01/09/18 08:00 98.8 77 14 117/52 (73) 99 01/09/18 08:00 35 01/09/18 08:00 77 01/09/18 07:43 98 35 01/09/18 07:00 98 Mechanical Ventilator 40 01/09/18 06:00 81 01/09/18 04:00 75 01/09/18 04:00 99.1 78 14 129/57 (81) 99 01/09/18 04:00 50 01/09/18 03:20 98 30 01/09/18 02:00 77 01/09/18 00:00 79 01/09/18 00:00 99.0 79 15 134/67 (89) 98 01/09/18 00:00 50 01/08/18 23:47 99 30 01/08/18 22:30 93 98/47 01/08/18 22:00 85 01/08/18 20:00 85 01/08/18 20:00 97.7 92 15 182/86 (118) 100 01/08/18 20:00 50 01/08/18 19:45 100 40 01/08/18 19:00 99 Mechanical Ventilator 40 01/08/18 18:00 72 01/08/18 16:00 64 01/08/18 16:00 97.3 64 14 116/54 (74) 100 01/08/18 16:00 50 01/08/18 15:34 100 40 01/08/18 14:00 81 01/08/18 12:00 50 01/08/18 12:00 97.7 60 14 120/60 (80) 100 01/08/18 12:00 60 01/08/18 10:00 69 01/08/18 09:09 99 40 01/08/18 08:00 50 01/08/18 08:00 98.4 69 14 112/61 (78) 99 01/08/18 08:00 94 01/08/18 07:30 99 Mechanical Ventilator 50 01/08/18 06:00 94 01/08/18 05:44 99 40 01/08/18 04:00 76 01/08/18 04:00 97.2 76 17 157/75 (102) 100 01/08/18 04:00 50 01/08/18 03:47 77 169/80 01/08/18 02:00 52 01/08/18 01:28 100 40 01/07/18 20:10 100 100 01/07/18 20:00 53 01/07/18 20:00 50 01/07/18 20:00 50 17 132/66 (88) 99 01/07/18 19:50 99 40 01/07/18 19:19 51 129/63 01/07/18 19:00 99 Mechanical Ventilator 50 01/07/18 18:00 51 01/07/18 16:13 99 50 01/07/18 16:00 97.8 52 17 116/58 (77) 99 111/63 (79) 01/07/18 16:00 54 01/07/18 16:00 50 01/07/18 14:00 55 01/07/18 12:00 50 01/07/18 12:00 97.8 61 17 118/60 (79) 99 116/61 (79) 01/07/18 12:00 53 (Tigre Estrada) Physical Examination GENERAL: Lethargic but sedated w/propofol 30 mcg/kg/min & midazolam 1 mg/hr infusing. Fentanyl 300 mcg/hr infusing for pain control. Intubated & mechanically ventilated. His skin is cool & dry. Vasopressin infusing at 0.01 units/min for blood pressure support. HEENT: Normocephalic, atraumatic. Pupils 3 mm, reactive. Orally intubated. OGT. NECK: [place] cervical collar in place. No JVD. Trachea midline. MUSCULOSKELETAL: No movement of extremities to stimulation. No evident clubbing or deformity. NEUROLOGICAL: Lethargic but sedated. Eye opening to command. Pupils 3 mm & reactive. Nonverbal, intubated. Did appear to blink to command. No response w/extremities to any stimulation. (Tigre Estrada) Lab, Micro, Other Results Recent Impressions Abdomen X-Ray 01/10/18 0000 Signed Impressions: Service Date/Time: Wednesday, January 10, 2018 04:40 - CONCLUSION: Gaseous distention of multiple bowel loops not significantly changed. Hussein Fontaine MD Abdomen X-Ray 01/08/18 0600 Signed Impressions: Service Date/Time: Monday, January 08, 2018 03:53 - CONCLUSION: Decrease in colonic air filled distention. Pattern likely represents ileus. Marcial Redmond MD Thoracic Spine X-Ray 01/08/18 0000 Signed Impressions: Service Date/Time: Sunday, January 07, 2018 21:17 - CONCLUSION: Intraoperative spot images of the thoracic spine for localization purposes. Marcial Redmond MD Lumbar Spine X-Ray 01/08/18 0000 Signed Impressions: Service Date/Time: Sunday, January 07, 2018 21:17 - CONCLUSION: Single intraoperative spot image for localization purposes. Marcial Redmond MD Chest X-Ray 01/08/18 0000 Signed Impressions: Service Date/Time: Monday, January 08, 2018 19:43 - CONCLUSION: Left lower lobe atelectasis or consolidation. Harley Ritter MD Laboratory Tests Test 01/08/18 04:30 01/09/18 04:09 01/09/18 05:00 01/09/18 05:20 White Blood Count 13.2 TH/MM3 18.8 TH/MM3 Red Blood Count 3.21 MIL/MM3 2.91 MIL/MM3 Hemoglobin 9.9 GM/DL 8.9 GM/DL Hematocrit 27.7 % 25.2 % Mean Corpuscular Volume 86.5 FL 86.6 FL Mean Corpuscular Hemoglobin 30.8 PG 30.7 PG Mean Corpuscular Hemoglobin Concent 35.7 % 35.4 % Red Cell Distribution Width 15.6 % 15.7 % Platelet Count 133 TH/MM3 210 TH/MM3 Mean Platelet Volume 9.8 FL 9.1 FL Neutrophils (%) (Auto) 90.3 % 92.5 % Lymphocytes (%) (Auto) 6.3 % 3.4 % Monocytes (%) (Auto) 2.5 % 4.0 % Eosinophils (%) (Auto) 0.1 % 0.0 % Basophils (%) (Auto) 0.8 % 0.1 % Neutrophils # (Auto) 11.9 TH/MM3 17.4 TH/MM3 Lymphocytes # (Auto) 0.8 TH/MM3 0.6 TH/MM3 Monocytes # (Auto) 0.3 TH/MM3 0.8 TH/MM3 Eosinophils # (Auto) 0.0 TH/MM3 0.0 TH/MM3 Basophils # (Auto) 0.1 TH/MM3 0.0 TH/MM3 CBC Comment DIFF FINAL DIFF FINAL Differential Comment Blood Urea Nitrogen 21 MG/DL 19 MG/DL Creatinine 0.69 MG/DL 0.68 MG/DL Random Glucose 126 MG/DL 98 MG/DL Total Protein 5.8 GM/DL 5.4 GM/DL Calcium Level 7.3 MG/DL 7.0 MG/DL Sodium Level 136 MEQ/L 143 MEQ/L Potassium Level 4.6 MEQ/L 4.0 MEQ/L Chloride Level 104 MEQ/L 110 MEQ/L Carbon Dioxide Level 26.5 MEQ/L 25.5 MEQ/L Anion Gap 6 MEQ/L 8 MEQ/L Estimat Glomerular Filtration Rate 114 ML/MIN 116 ML/MIN Protein Corrected Calcium 8.0 MG/DL 7.9 MG/DL Vancomycin Level Trough 17.8 MCG/ML Blood Gas Puncture Site ART LINE Blood Gas Patient Temperature 98.6 Blood Gas HCO3 25 mmol/L Blood Gas Base Excess 1.3 mmol/L Blood Gas Oxygen Saturation 96 % Arterial Blood pH 7.47 Arterial Blood Partial Pressure CO2 35 mmHg Arterial Blood Partial Pressure O2 102 mmHg Arterial Blood Oxygen Content 14.7 Vol % Arterial Blood Carboxyhemoglobin 1.4 % Arterial Blood Methemoglobin 1.3 % Blood Gas Hemoglobin 10.8 G/DL Oxygen Delivery Device VENTILATOR Blood Gas Ventilator Setting [facility]/AC14/750/IT1.0/ Blood Gas Inspired Oxygen 30 % Magnesium Level 2.1 MG/DL Test 01/10/18 04:45 White Blood Count 16.7 TH/MM3 Red Blood Count 2.55 MIL/MM3 Hemoglobin 7.7 GM/DL Hematocrit 22.3 % Mean Corpuscular Volume 87.3 FL Mean Corpuscular Hemoglobin 30.2 PG Mean Corpuscular Hemoglobin Concent 34.6 % Red Cell Distribution Width 15.2 % Platelet Count 246 TH/MM3 Mean Platelet Volume 8.4 FL Neutrophils (%) (Auto) 91.2 % Lymphocytes (%) (Auto) 4.7 % Monocytes (%) (Auto) 3.9 % Eosinophils (%) (Auto) 0.1 % Basophils (%) (Auto) 0.1 % Neutrophils # (Auto) 15.2 TH/MM3 Lymphocytes # (Auto) 0.8 TH/MM3 Monocytes # (Auto) 0.7 TH/MM3 Eosinophils # (Auto) 0.0 TH/MM3 Basophils # (Auto) 0.0 TH/MM3 CBC Comment AUTO DIFF Differential Total Cells Counted 100 Neutrophils % (Manual) 89 % Band Neutrophils % 8 % Lymphocytes % 2 % Neutrophils # (Manual) 16.4 TH/MM3 Myelocytes 1 % Differential Comment FINAL DIFF MANUAL Platelet Estimate NORMAL Platelet Morphology Comment NORMAL Blood Urea Nitrogen 21 MG/DL Creatinine 0.60 MG/DL Random Glucose 126 MG/DL Total Protein 5.1 GM/DL Albumin 1.2 GM/DL Calcium Level 6.8 MG/DL Alkaline Phosphatase 127 U/L Aspartate Amino Transf (AST/SGOT) 46 U/L Alanine Aminotransferase (ALT/SGPT) 29 U/L Total Bilirubin 0.8 MG/DL Sodium Level 146 MEQ/L Potassium Level 4.0 MEQ/L Chloride Level 114 MEQ/L Carbon Dioxide Level 24.1 MEQ/L Anion Gap 8 MEQ/L Estimat Glomerular Filtration Rate 134 ML/MIN Protein Corrected Calcium 7.8 MG/DL (Tigre Estrada) Medical Decision Making Impression and Plan Impression: 1. Severe progressive paraplegia. Although he has significant spinal stenosis in the cervical thoracic and lumbar region, his overall presentation and exam suggests that the lumbar stenosis is the immediate cause of his severe lower extremity deficit, positive cauda equina syndrome. 2. Possible sepsis 3. Acute kidney disease 4. 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 Severe lumbar canal stenosis 2. Cauda equina syndrome 3. Cervical degenerative disease with severe stenosis and myelopathy 4. Thoracic disc disease with severe canal stenosis and myelopathy 5. Sepsis 6. Thrombocytopenia 7. Acute kidney disease Postoperative Diagnosis : (1) Cervical disc disease with myelopathy (2) Thoracic disc disease with myelopathy Postoperative Diagnosis : (1) Spinal epidural abscess (2) Thoracic disc disease with myelopathy (3) Lumbar canal stenosis 4. Postoperative lumbar epidural hematoma Respiratory insufficiency, CXR w/LLL consolidation. Ileus suggested by abdominal x-ray . Patient remains critical. He is lethargic but sedated and remains intubated & mechanically ventilated. He opened his eyes to voice & blinked to command but no extremity motor response to any stimulation. GUIDO #1 (lower back) with 55 mL, #2 (cervical) with 35 mL, #3 (lumbar) with 10 mL & #4 (lumbar) with 12 mL output the past 24 hrs as of shift change this morning. Reviewed labs for today. Decrease in leukocytosis & drop in haemoglobin level. Sodium 146. Elevation on AST but improvement in alk phos. Sputum culture () w/few epithelial cells, few WBCs, moderate Gram positive cocci in pairs & rare pleomorphic Gram positive rods. Wound culture () positive for Escherichia coli. Blood cultures () no growth x5d, final . Wound culture () positive for Escherichia coli, final . Blood cultures ( & ) positive for Escherichia coli, final . Urine culture () positive for Escherichia coli, final . MRI brain () unremarkable. MRI cervical spine () w/spinal stenosis, no definite cord edema noted but significant cord flattening at multiple levels. MRI thoracic spine () w/multilevel cord compression due to disc protrusions. Cord compression at T10 level due to midline fluid collection. Right parasagittal subcutaneous fluid collection at T10 & T11, abscess suspected. CT chest () w/o abscess identified outside the thoracic spine. Small bilateral pleural effusions. CT abdomen & pelvis () demonstrates multiple lumbar laminectomy defects w/locules of air in the canal & L2 vertebral body which could be r/t infection, cannot exclude abscess formation w/i the canal. Horseshoe kidney w/ nonobstructing calculi bilaterally. Diffuse ileus. Small effusions & mild anasarca. MRI lumbar spine () demonstrated extensive surgical changes. There is a 1.4 cm midline cystic structure just posterior of the thecal sac not clearly present previously which may represent a small seroma which could result in central spinal stenosis. Severe narrowing of the right L4-5 neural foramen w/ almost certain right L4 nerve root compromise. POD #7 () s/p: 1. Bilateral L1-2, L2-3, L3 4, L4 5 decompressive semi-laminectomy, medial facetectomy for spinal canal decompression. POD #3 (-) s/p: Procedure number 1. C2-C6 decompressive laminectomy Procedure number 2,Via separate incision: T2-T6 decompressive laminectomy POD #2 (-) s/p: Part 2 of planned two-part procedure. Procedure #1: 1. [id number] decompressive semi-laminectomy, evacuation thoracic epidural abscess 2. Evacuation thoracic epidural abscess. Procedure #2: Via separate incision. 1. Revision L2-3, L3 4, L4 5 decompressive semi-laminectomy 2. Evacuation lumbar epidural abscess 3. Evacuation of postoperative lumbar epidural hematoma Plan: Discussed patient w/Nursing. Primary & critical care management per Food Safety Manager. Neuro checks. Turn patient q2h but keep the patient off of his back. Physical & Occupational Therapy eval & tx. Hold pharmacologic DVT prophylaxis. Mechanical DVT prophylaxis. D/c both lumbar drains (#s 3 & 4). (Tigre Estrada) Attending Statement The exam, history, and the medical decision-making described in the above note were completed with the assistance of the mid-level provider. I reviewed and agree with the findings presented. I attest that I had a [id number] encounter with the patient on the same day, and personally performed and documented my assessment and findings in the medical record. Remains intubated. Moderate eye-opening. Not definitely following commands. No response to deep pain all extremities Lumbar drains discontinued Continue ventilatory support. Discussed with family. Prognosis guarded (Jerry Chakraborty MD) Tigre Estrada Jan 10, 2018 11:20 Jerry Chakraborty MD Jan 11, 2018 17:35
--- NOTE | 2018-01-10 12:45 | HHI.GIFU ---
Subjective Remarks pt intubated. family at bedside. per nursing staff and family little change in distention, no BM. (Deyanira Laboy) Objective Vitals I&O Vital Signs Date Time Temp Pulse Resp B/P (MAP) Pulse Ox O2 Delivery O2 Flow Rate FiO2 01/10/18 12:00 62 01/10/18 12:00 45 01/10/18 12:00 97.5 71 14 110/45 (66) 100 01/10/18 11:33 100 35 01/10/18 10:00 57 01/10/18 08:00 45 01/10/18 08:00 97.9 68 14 132/64 (86) 100 Automatic Cuff 01/10/18 08:00 64 01/10/18 07:49 100 35 01/10/18 07:00 99 Mechanical Ventilator 45 01/10/18 06:00 62 01/10/18 04:00 45 01/10/18 04:00 97.8 55 14 149/72 (97) 100 01/10/18 04:00 55 01/10/18 03:42 100 45 01/10/18 02:00 52 01/10/18 00:00 99 45 01/10/18 00:00 52 01/10/18 00:00 45 01/10/18 00:00 97.4 51 14 132/66 (88) 99 01/09/18 22:00 58 01/09/18 20:00 97.9 63 14 122/64 (83) 98 01/09/18 20:00 63 01/09/18 20:00 45 01/09/18 19:32 66 113/54 01/09/18 19:24 98 45 01/09/18 19:00 99 Mechanical Ventilator 45 01/09/18 18:00 71 01/09/18 16:00 67 01/09/18 16:00 45 01/09/18 16:00 99.7 67 14 98/48 (65) 98 01/09/18 15:19 99 45 01/09/18 14:00 97 I/O 01/09/18 01/09/18 01/09/18 01/10/18 01/10/18 01/10/18 07:00 15:00 23:00 07:00 15:00 23:00 Intake Total 200 ml 250 ml 1665 ml Output Total 2605 ml 1232 ml 680 ml Balance -2405 ml -982 ml 985 ml IV Total 100 ml 100 ml 1565 ml Tube Irrigant 100 ml 150 ml 100 ml Output Urine Total 2500 ml 1150 ml 600 ml Gastric Drainage Total 50 ml 50 ml Drainage Total 55 ml 82 ml 30 ml # Bowel Movements 0 0 0 Laboratory Laboratory Tests Test 01/10/18 04:45 White Blood Count 16.7 Red Blood Count 2.55 Hemoglobin 7.7 Hematocrit 22.3 Mean Corpuscular Volume 87.3 Mean Corpuscular Hemoglobin 30.2 Mean Corpuscular Hemoglobin Concent 34.6 Red Cell Distribution Width 15.2 Platelet Count 246 Mean Platelet Volume 8.4 Neutrophils (%) (Auto) 91.2 Lymphocytes (%) (Auto) 4.7 Monocytes (%) (Auto) 3.9 Eosinophils (%) (Auto) 0.1 Basophils (%) (Auto) 0.1 Neutrophils # (Auto) 15.2 Lymphocytes # (Auto) 0.8 Monocytes # (Auto) 0.7 Eosinophils # (Auto) 0.0 Basophils # (Auto) 0.0 CBC Comment AUTO DIFF Differential Total Cells Counted 100 Neutrophils % (Manual) 89 Band Neutrophils % 8 Lymphocytes % 2 Neutrophils # (Manual) 16.4 Myelocytes 1 Differential Comment FINAL DIFF MANUAL Platelet Estimate NORMAL Platelet Morphology Comment NORMAL Blood Urea Nitrogen 21 Creatinine 0.60 Random Glucose 126 Total Protein 5.1 Albumin 1.2 Calcium Level 6.8 Alkaline Phosphatase 127 Aspartate Amino Transf (AST/SGOT) 46 Alanine Aminotransferase (ALT/SGPT) 29 Total Bilirubin 0.8 Sodium Level 146 Potassium Level 4.0 Chloride Level 114 Carbon Dioxide Level 24.1 Anion Gap 8 Estimat Glomerular Filtration Rate 134 Protein Corrected Calcium 7.8 Date/Time Source Procedure Growth Status 01/05/18 04:00 Blood Peripheral Aerobic Blood Culture - Final NO GROWTH IN 5 DAYS Complete 01/05/18 04:00 Blood Peripheral Anaerobic Blood Culture - Final NO GROWTH IN 5 DAYS Complete 01/08/18 22:22 Sputum Expectorated Sputum Gram Stain - Final Resulted 01/08/18 22:22 Sputum Expectorated Sputum Sputum Culture Pending Resulted 01/02/18 23:35 Urine Clean Catch Urine Culture - Final Escherichia Coli Complete 01/07/18 22:50 Abscess Back Gram Stain - Final Complete 01/07/18 22:50 Wound Culture - Final Escherichia Coli Complete Imaging Last Impressions Abdomen X-Ray 01/10/18 Signed Impressions: Service Date/Time: Wednesday, January 10, 2018 04:40 - CONCLUSION: Gaseous distention of multiple bowel loops not significantly changed. Hussein Fontaine MD Thoracic Spine X-Ray 01/08/18 0000 Signed Impressions: Service Date/Time: Sunday, January 07, 2018 21:17 - CONCLUSION: Intraoperative spot images of the thoracic spine for localization purposes. Marcial Redmond MD Lumbar Spine X-Ray 01/08/18 Signed Impressions: Service Date/Time: Sunday, January 07, 2018 21:17 - CONCLUSION: Single intraoperative spot image for localization purposes. Marcial Redmond MD Chest X-Ray 01/08/18 Signed Impressions: Service Date/Time: Monday, January 08, 2018 19:43 - CONCLUSION: Left lower lobe atelectasis or consolidation. Harley Ritter MD Thoracic Spine MRI 01/06/18 Signed Impressions: Service Date/Time: January 14:23 - CONCLUSION: 1. Multilevel cord compression is due predominantly to multiple disc protrusions. Significant cord compression is present at least 6 levels. There is also cord compression posteriorly at the T10 level due to a fluid collection in the midline which measures 6 mm in AP dimension. 2. There is also focal subcutaneous right parasagittal fluid collection at T10 and T11 which does not demonstrate peripheral contrast enhancement. An abscess is suspected. Jagjit Wilkinson MD Chest CT 01/06/18 Signed Impressions: Service Date/Time: January 18:51 - CONCLUSION: 1. No abscess identified outside of the thoracic spinal canal. Small bilateral pleural effusions. NG coiled in the stomach. Frederick Rizzo MD Cervical Spine MRI 01/06/18 0000 Signed Impressions: Service Date/Time: January 14:23 - CONCLUSION: 1. Severe degenerative changes with severe spinal stenosis at C2-3, C3-4, C4-5 and C5-6. There is moderate spinal stenosis at C6-7 and C7-T1. Overall assessment of the cord is limited due to motion artifact. I do not definitively see edema within the cord however there is significant flattening of the cord at multiple levels. 2. No significant abnormal contrast enhancement identified. Leonardo Sorenson MD Brain MRI 01/06/18 0000 Signed Impressions: Service Date/Time: January 14:23 - CONCLUSION: 1. Negative MRI of the brain with and without contrast. Jagjit Wilkinson MD Abdomen/Pelvis CT 01/06/18 0000 Signed Impressions: Service Date/Time: January 18:51 - CONCLUSION: 1. Multiple laminectomy defects in the lumbar spine with some locules of air both within the canal and within the L2 vertebral body which could be related to infection. Cannot exclude abscess formation within the canal. 2. 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 3. Diffuse ileus. 4. Small effusions and mild anasarca. 5. Reyna catheter in decompressed bladder. NG coiled in stomach. Frederick Rizzo MD Lumbar Spine MRI 01/05/18 0000 Signed Impressions: Service Date/Time: Friday, January 05, 2018 14:27 - CONCLUSION: 1. Extensive postsurgical changes with apparent left decompressive laminectomy leftward from L1 to through L4-5. 2. There is a well-circumscribed 1.4 cm cystic structure midline just posterior to the thecal sac at L4-5 which was not clearly present previously. May represent a small seroma which could result in some degree of central spinal stenosis despite the left laminectomy. 3. In addition, severe narrowing of the right L4-5 neural foramen with almost certain compromise of the right L4 nerve root. Emir Bowles MD Physical Exam HEENT: Normocephalic; atraumatic, ETT cervical collar CHEST: coarse CARDIAC: RRR ABDOMEN:distended, semifirm, BS hypoactive [employer]: Sedated, unresponsive (Deyanira Laboy) Assessment and Plan Plan ASSESSMENT -abd distention, abd pain - ileus. no BM in 4 d and last BM scant. On pain meds. KUB 4/4 mildly prominent loops small and large bowel, suggestive ileus. d/w attending - anemia - likely multifactorial HH stable - elevated LFTs - unclear etiology...DILI vs sepsis vs other etiology. hep panel neg. - leukocytosis - poss epidural abscess, bacteremia, ID following - urosepsis, spinal cord compression s/p decompression, VALENCIA, thrombocytopenia, - per attending. ID, urology following (01/07) Change in clinical condition overnight. Respiratory distress and bilateral lower extremity weakness with progressive weakness of upper extremities. Pt was intubated and taken to OR for C2-C6 decompressive laminectomy and T2-T6 decompressive laminectomy. Pt remains on sedation and mechanically ventilated. Per RN pt had no response to Relistor. NG was placed yesterday, clamped most of the night for surgery, currently to LIWS with 50 mL of output. Abdomen continues to be distended but seems more soft today. No BMs. Bowel sounds active. Possible neurogenic component to ileus. KUB (01/07) Diffuse gas filled distention of colon and small bowel again likely representing ileus. No significant interval change. NG in place. Significant drop in H/H last night down to 6.6/19, currently 8.6/24.2 Thrombocytopenia noted- plts 97. 2 U plts transfused last night Elevated LFTs- AST and ALT WNL. Alk phos trending down. T bili-2.6. CT abdomen and pelvis W IV contrast (01/06) --> Diffuse ileus. Small effusions and mild anasarca. NG coiled in stomach. 01/08/18 decrease in colonic air, Pattern likely ileus. 01/09/18, Still no BM, 1 week., Ileus slow resolution. But Abd. taut, less distention,. 01/10/18 no BM. KUB shows little change gaseous distention. on exam distended, semifirm. PLAN - NGT to LIWS - continue bowel regimen - Reglan - Monitor HGB, labs - Supportive care - consider decompressive colonoscopy if fails to improve - Further recommendations based on clinical course Pt has been seen and examined by myself and Dr. Bhardwaj and this note is written on his behalf (Deyanira Laboy) Plan Patient was seen and examined, agree with above-noted, still distended, we will continue NG tube to suction, if not better and if we feel that this is all from the colon we can do decompression (Fernando Bhardwaj MD) Deyanira Laboy Jan 10, 2018 12:45 Fernando Bhardwaj MD Jan 10, 2018 13:58
--- NOTE | 2018-01-10 13:09 | HHI.IDPN ---
Subjective Subjective Remarks Mr. Reeves is a 67 y/o CM with history of BPH who underwent a prostate biopsy one week ago, on 12/27/17. On the evening of 12/29/17 he developed fever and chills, low back pain, and lower extremity numbness and paresthesias and muscle spasm. He was seen by his primary care physician and was given medication including muscle relaxant. The symptoms persisted and he returned to his primary care physician on 01/01/18 and was given additional medications including Cipro and medrol dose pack. On 01/02/2018 patient woke up with increased lower extremity weakness and numbness, and fell in the shower in the morning, after which he was unable to ambulate or lift his legs off the bed , and continued to experience pain in the lower back. He went to the emergency room at [facility], and was given additional medication injections. He could not lift his legs off the bed or ambulate in the emergency room, and was taken out to his car and lifted into the car and sent home again. He fell in the driveway again trying to get back into the house. He apparently did not urinate for the entire day. He has no complaint of pain which is numbness paresthesias in the upper extremities. Reportedly on admission there was no numbness or paresthesias over the chest or abdomen or pelvic region. The MRI of thoracic spine shows severe canal stenosis at T2-3 and T5-6 level with cord compressions, complete or near complete canal obliteration at L2-3 L3- 4 and severe multilevel canal stenosis of the C-spine. Entire spine including C spine shows areas of stenosis. Upon my discussion with patient had to be emergently taken to the OR for decompression. Intraop cultures were taken and no hardware placed at present time but it appears that patient will need more surgeries. The MRIs done were non contrast due to Acute renal failure on admission and cannot be repeated. Per dw plan is to treat as epidural abscess stone since patient was treated for few days with antibiotics prior to arrival and also due to patient needing hardware placement which can be seeded. Previously, Intubated, being weaned off sedation, UO is good peck in place. Not on any pressors. There is a plan wean and extubate. ID consulted for evaluation and Management of GN madonna bacteremia (E.coli CTX M negative) and possible epidural abscess. Patient underwent procedure C2-C6 decompressive laminectomy, procedure to T2-T6 decompressive laminectomy as well as lumbar. (Separate incisions) by Dr. Chakraborty Reviewed overnight events. Discussed with RN. Amarilys Rodríguez collar in place. Termps 99.7 F Not on pressors. No rash, no diarrhea. Ileus No BM yet. Movement of fingers spontaneously below wrist R> L Antibiotics Ceftaz, Vanco IV, Flagyl IV Lines Line sites with no e.o infection Past Medical History reviewed Allergies: Coded Allergies: No Known Allergies (Unverified , 01/02/18) Objective . Vital Signs Date Time Temp Pulse Resp B/P (MAP) Pulse Ox O2 Delivery O2 Flow Rate FiO2 01/10/18 12:00 62 01/10/18 12:00 45 01/10/18 12:00 97.5 71 14 110/45 (66) 100 01/10/18 11:33 100 35 01/10/18 10:00 57 01/10/18 08:00 45 01/10/18 08:00 97.9 68 14 132/64 (86) 100 Automatic Cuff 01/10/18 08:00 64 01/10/18 07:49 100 35 01/10/18 07:00 99 Mechanical Ventilator 45 01/10/18 06:00 62 01/10/18 04:00 45 01/10/18 04:00 97.8 55 14 149/72 (97) 100 01/10/18 04:00 55 01/10/18 03:42 100 45 01/10/18 02:00 52 01/10/18 00:00 99 45 01/10/18 00:00 52 01/10/18 00:00 45 01/10/18 00:00 97.4 51 14 132/66 (88) 99 01/09/18 22:00 58 01/09/18 20:00 97.9 63 14 122/64 (83) 98 01/09/18 20:00 63 01/09/18 20:00 45 01/09/18 19:32 66 113/54 01/09/18 19:24 98 45 01/09/18 19:00 99 Mechanical Ventilator 45 01/09/18 18:00 71 01/09/18 16:00 67 01/09/18 16:00 45 01/09/18 16:00 99.7 67 14 98/48 (65) 98 01/09/18 15:19 99 45 01/09/18 14:00 97 01/10/18 01/10/18 01/11/18 15:00 23:00 07:00 Intake Total 1000 ml Balance 1000 ml IV Total 1000 ml . Laboratory Tests Test 01/09/18 05:00 01/10/18 04:45 White Blood Count 18.8 TH/MM3 16.7 TH/MM3 Red Blood Count 2.91 MIL/MM3 2.55 MIL/MM3 Hemoglobin 8.9 GM/DL 7.7 GM/DL Hematocrit 25.2 % 22.3 % Mean Corpuscular Volume 86.6 FL 87.3 FL Mean Corpuscular Hemoglobin 30.7 PG 30.2 PG Mean Corpuscular Hemoglobin Concent 35.4 % 34.6 % Red Cell Distribution Width 15.7 % 15.2 % Platelet Count 210 TH/MM3 246 TH/MM3 Mean Platelet Volume 9.1 FL 8.4 FL Neutrophils (%) (Auto) 92.5 % 91.2 % Lymphocytes (%) (Auto) 3.4 % 4.7 % Monocytes (%) (Auto) 4.0 % 3.9 % Eosinophils (%) (Auto) 0.0 % 0.1 % Basophils (%) (Auto) 0.1 % 0.1 % Neutrophils # (Auto) 17.4 TH/MM3 15.2 TH/MM3 Lymphocytes # (Auto) 0.6 TH/MM3 0.8 TH/MM3 Monocytes # (Auto) 0.8 TH/MM3 0.7 TH/MM3 Eosinophils # (Auto) 0.0 TH/MM3 0.0 TH/MM3 Basophils # (Auto) 0.0 TH/MM3 0.0 TH/MM3 CBC Comment DIFF FINAL AUTO DIFF Differential Comment FINAL DIFF MANUAL Differential Total Cells Counted 100 Neutrophils % (Manual) 89 % Band Neutrophils % 8 % Lymphocytes % 2 % Neutrophils # (Manual) 16.4 TH/MM3 Myelocytes 1 % Platelet Estimate NORMAL Platelet Morphology Comment NORMAL Laboratory Tests Test 01/09/18 05:00 01/09/18 05:20 01/10/18 04:45 Blood Urea Nitrogen 19 MG/DL 21 MG/DL Creatinine 0.68 MG/DL 0.60 MG/DL Random Glucose 98 MG/DL 126 MG/DL Total Protein 5.4 GM/DL 5.1 GM/DL Calcium Level 7.0 MG/DL 6.8 MG/DL Sodium Level 143 MEQ/L 146 MEQ/L Potassium Level 4.0 MEQ/L 4.0 MEQ/L Chloride Level 110 MEQ/L 114 MEQ/L Carbon Dioxide Level 25.5 MEQ/L 24.1 MEQ/L Anion Gap 8 MEQ/L 8 MEQ/L Estimat Glomerular Filtration Rate 116 ML/MIN 134 ML/MIN Protein Corrected Calcium 7.9 MG/DL 7.8 MG/DL Magnesium Level 2.1 MG/DL Albumin 1.2 GM/DL Alkaline Phosphatase 127 U/L Aspartate Amino Transf (AST/SGOT) 46 U/L Alanine Aminotransferase (ALT/SGPT) 29 U/L Total Bilirubin 0.8 MG/DL Microbiology Date/Time Source Procedure Growth Status 01/08/18 22:22 Sputum Expectorated Sputum Gram Stain - Final Resulted 01/08/18 22:22 Sputum Expectorated Sputum Sputum Culture Pending Resulted 01/07/18 22:50 Abscess Back Gram Stain - Final Complete 01/07/18 22:50 Wound Culture - Final Escherichia Coli Complete 01/07/18 22:50 Abscess Back Gram Stain - Final Complete 01/07/18 22:50 Wound Culture - Final Escherichia Coli Complete 01/07/18 22:08 Wound Back Gram Stain - Final Complete 01/07/18 22:08 Wound Culture - Final Escherichia Coli Complete Imaging Last Impressions Abdomen X-Ray 01/08/18 0600 Signed Impressions: Service Date/Time: Monday, January 08, 2018 03:53 - CONCLUSION: Decrease in colonic air filled distention. Pattern likely represents ileus. Marcial Redmond MD Thoracic Spine X-Ray 01/08/18 0000 Signed Impressions: Service Date/Time: Sunday, January 07, 2018 21:17 - CONCLUSION: Intraoperative spot images of the thoracic spine for localization purposes. Marcial Redmond MD Lumbar Spine X-Ray 01/08/18 0000 Signed Impressions: Service Date/Time: Sunday, January 07, 2018 21:17 - CONCLUSION: Single intraoperative spot image for localization purposes. Marcial Redmond MD Chest X-Ray 01/08/18 0000 Signed Impressions: Service Date/Time: Monday, January 08, 2018 19:43 - CONCLUSION: Left lower lobe atelectasis or consolidation. Harley Ritter MD Thoracic Spine MRI 01/06/18 Signed Impressions: Service Date/Time: January 14:23 - CONCLUSION: 1. Multilevel cord compression is due predominantly to multiple disc protrusions. Significant cord compression is present at least 6 levels. There is also cord compression posteriorly at the T10 level due to a fluid collection in the midline which measures 6 mm in AP dimension. 2. There is also focal subcutaneous right parasagittal fluid collection at T10 and T11 which does not demonstrate peripheral contrast enhancement. An abscess is suspected. Jagjit Wilkinson MD Chest CT 01/06/18 Signed Impressions: Service Date/Time: January 18:51 - CONCLUSION: 1. No abscess identified outside of the thoracic spinal canal. Small bilateral pleural effusions. NG coiled in the stomach. Frederick Rizzo MD Cervical Spine MRI 01/06/18 Signed Impressions: Service Date/Time: January 14:23 - CONCLUSION: 1. Severe degenerative changes with severe spinal stenosis at C2-3, C3-4, C4-5 and C5-6. There is moderate spinal stenosis at C6-7 and C7-T1. Overall assessment of the cord is limited due to motion artifact. I do not definitively see edema within the cord however there is significant flattening of the cord at multiple levels. 2. No significant abnormal contrast enhancement identified. Leonardo Sorenson MD Brain MRI 01/06/18 Signed Impressions: Service Date/Time: January 14:23 - CONCLUSION: 1. Negative MRI of the brain with and without contrast. Jagjit Wilkinson MD Abdomen/Pelvis CT 01/06/18 Signed Impressions: Service Date/Time: January 18:51 - CONCLUSION: 1. Multiple laminectomy defects in the lumbar spine with some locules of air both within the canal and within the L2 vertebral body which could be related to infection. Cannot exclude abscess formation within the canal. 2. 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 3. Diffuse ileus. 4. Small effusions and mild anasarca. 5. Peck catheter in decompressed bladder. NG coiled in stomach. Frederick Rizzo MD Lumbar Spine MRI 01/05/18 Signed Impressions: Service Date/Time: Friday, January 05, 2018 14:27 - CONCLUSION: 1. Extensive postsurgical changes with apparent left decompressive laminectomy leftward from L1 to through L4-5. 2. There is a well-circumscribed 1.4 cm cystic structure midline just posterior to the thecal sac at L4-5 which was not clearly present previously. May represent a small seroma which could result in some degree of central spinal stenosis despite the left laminectomy. 3. In addition, severe narrowing of the right L4-5 neural foramen with almost certain compromise of the right L4 nerve root. Emir Bowles MD Physical Exam GENERAL: This is a well-nourished, well-developed patient, intubated, sedated. SKIN: Warm and dry. HEAD: Normocephalic. EYES: Pupils equal round. No scleral icterus. No injection or drainage. ENT: No thrush, dry oral mucosa. Nose without bleeding. Airway patent. NECK: Trachea midline. [place] J collar in place. CARDIOVASCULAR: Tachycardic. RESPIRATORY: Diminished breath sounds. No wheezes, rales, or rhonchi. Intubated on mechanical ventilation. GASTROINTESTINAL: Abdomen non-tender, soft, slightly distended. Hypoactive bowel sounds. NG tube in place clamped. : Peck catheter draining gila colored urine. Significant scrotal edema. BACK: GUIDO drain x 4, one cervical, one thoracic and 2 lumbar - all with serosanguineous drainage. Surgical incisions healing well per nursing report. MUSCULOSKELETAL: Extremities without clubbing, cyanosis. Generalized edema +1 of extremities. NEUROLOGICAL: Intubated, sedated. LINES: Left IJ central line in place. Assessment & Plan Remarks Severe Sepsis present on admission (leucocytosis, Tachycardia, source: bacteremia and epidural abscess. E.coli bacteremia high grade E.Coli UTI recent prostate biopsy. 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 (Cervical,Thoracic and Lumbar on 4 spots) Recent history of prostate biopsy as risk factor for E.coli bacteremia. Paraparesis present on admission. Recs: Continue Ceftazidime IV for E.coli Sepsis and Osteomyelitis of C,T,L spine plus epidural abscesses. Continue Vanco IV for now (for possible MRSA pneumonia) Continue Flagyl till cultures finalized. Will deescalate antibiotics in am after sputum cultures finalized. Follow clinically and cultures. jose alberto significant other: thankful of care provided. Shanda Charles MD Jan 10, 2018 13:09
[2018-01-10] MEDS: VASOPRESSIN INJ 40 UNITS in DEXTROSE 5% IN WATER 100ML INJ 98 ML IV SCH ×2 (13:11)
--- NOTE | 2018-01-10 16:56 | HHI.CCPN ---
Subjective Remarks/Hospital Course 67-year-old male who underwent a prostate biopsy one week ago, on 12/27/17. On the evening of 12/29/17 he developed fever and chills, low back pain, and lower extremity numbness and paresthesias and muscle spasm. He was seen by his primary care physician and was given medication including muscle relaxant. The symptoms persisted and he returned to his primary care physician on Wednesday, and was given additional medications including Cipro. He awoke on 01/02/2018 with increased lower extremity weakness and numbness, and fell in the shower in the morning, after which he was unable to ambulate or lift his legs off the bed, and continued to experience pain in the lower back. He went to the emergency room at [facility], and was given additional medication injections. He could not lift his legs off the bed or ambulate in the emergency room, and was taken out to his car and lifted into the car and sent home again. He fell in the driveway again trying to get back into the house. He apparently did not urinate for the entire day. He has no complaint of pain which is numbness paresthesias in the upper extremities. No numbness or paresthesias over the chest or abdomen or pelvic region. The MRI of thoracic spine shows severe canal stenosis at T2-3 and T5-6 level with cord compressions, complete or near complete canal obliteration at L2 -3 L3-4 and severe multilevel canal stenosis of the C-spine. The patient is emergently taken to operating room by Dr. Chakraborty. Subjective 01/04: Extubated late afternoon yesterday without any complications. Some sensation bilateral lower extremities. Strength 4-5 bilateral upper extremities. Afebrile. Hemodynamically stable. 01/06: RECONSULT NOTE: reconsulted for respiratory distress. in brief, 67yM with recent prostate biopsy complicated by e. coli bacteremia and lumbar epidural abscess. he was stable and sent to the floor where he developed respiratory distress, fever, tachycardia, tachypnea, diaphoresis. on my exam, patient is in distress, appears toxic. repeat MRI spine demonstrates fluid collections and evidence of spinal compression in cervical, thoracic, and lumbar spinal areas concerning for rapidly ascending abscess with neurologic compromise. also, patient was weak in b/l LEs overnight and now is nearly a complete quad, with only 3/5 distal upper extremity strength left and 1/5 proximal upper extremity strength. 01/07: Persistent septic course. Unable to wean from mechanical ventilation. Infectious Disease service is guiding antimicrobial therapy. 01/08: Back from OR. Vent synchrony much improved with large tidal volume breaths. Urine output acceptable, gas exchange acceptable. 01/09: Continued septic course requiring vasopressors, diffuse general edema. 01/10: Improved control of sepsis after surgical source control. Long recovery, high risk. Objective Vital Signs Date Time Temp Pulse Resp B/P (MAP) Pulse Ox O2 Delivery O2 Flow Rate FiO2 01/10/18 16:00 45 01/10/18 16:00 60 01/10/18 14:29 99 01/10/18 13:11 123/63 01/10/18 12:00 97.5 14 01/10/18 07:00 Mechanical Ventilator 01/06/18 18:06 6.00 Intake and Output 01/10/18 01/10/18 01/11/18 08:00 16:00 00:00 Intake Total 715 ml 1000 ml Output Total 680 ml Balance 35 ml 1000 ml Result Diagram: 01/10/18 0445 01/10/18 0445 Other Results Microbiology Date/Time Source Procedure Growth Status 01/07/18 22:50 Abscess Back Gram Stain - Final Complete 01/07/18 22:50 Wound Culture - Final Escherichia Coli Complete 01/07/18 22:50 Abscess Back Gram Stain - Final Complete 01/07/18 22:50 Wound Culture - Final Escherichia Coli Complete 01/07/18 22:08 Wound Back Gram Stain - Final Complete 01/07/18 22:08 Wound Culture - Final Escherichia Coli Complete Imaging Last Impressions Thoracic Spine MRI 01/03/18 0000 Signed Impressions: Service Date/Time: Wednesday, January 03, 2018 00:38 - CONCLUSION: Multilevel disc abnormalities. Severe canal stenosis at T2-3 and T5-6 with cord compression and mild signal changes in the cord at T2-3 and moderate signal changes within the cord at T5-6. Less severe changes at L2 additional levels as described. Harley Herrera MD Lumbar Spine MRI 01/03/18 0000 Signed Impressions: Service Date/Time: Wednesday, January 03, 2018 00:38 - CONCLUSION: Complete or near complete canal obliteration at L2-3, L3-4 and L4-5 with less severe compromise at L1-2 and T12-L1. Harley Herrera MD Cervical Spine MRI 01/03/18 0000 Signed Impressions: Service Date/Time: Wednesday, January 03, 2018 00:38 - CONCLUSION: Severe multilevel canal stenosis. Findings appear to be most critical at C4-5 and C5-6 where AP canal dimension is reduced to 4-5 mm, however also quite severe at C2-3 and C3-4. Harley Herrera MD Chest X-Ray 01/02/18 2302 Signed Impressions: Service Date/Time: Tuesday, January 02, 2018 23:11 - CONCLUSION: Mild basilar atelectasis or scarring. Harley Herrera MD Procedures L1 through L5 decompressive laminectomy. Objective Remarks GENERAL: 67-year-old male, heavily sedated, intubated. SKIN: Warm. HEAD: Normocephalic. EYES: No scleral icterus. No injection or drainage. NECK: Supple, trachea midline. Orally intubated. CARDIOVASCULAR: Tachycardic rate, regular rhythm. sinus. No JVD. RESPIRATORY: Equal chest rise. clear breath sounds. mechanically ventilated. GASTROINTESTINAL: Abdomen soft, mildly distended. nontender. no guarding. BS few. MUSCULOSKELETAL: Diffuse edema, well perfused limbs. NEURO EXAM: Heavily sedated, breathes over ventilator. No movement of feet to stimulation, but sedation. Wiggles right fingers.. A/P Assessment and Plan Assessment: 67-year-old male now postop day 3 status post lumbar laminectomy and decompression for epidural abscess who presents now with rapidly progressive spinal abscess with rapidly worsening myelopathy and neurologic function. It appears that the patient remains bacteremic and is very toxic in severe sepsis leading to septic shock and decompensating manner. Dr. Chakraborty, Dr. Charles, and myself had multiple conversations. This patient is very critically ill and is very likely not survive this illness. However, his only chance of meaningful recovery would be emergent decompression and washout. After discussion with the patient, and Dr. Chakraborty, we all agreed to proceed. I intubated the patient, see separate procedure notes for details, and placed arterial line and central line. Neuro/Psych: Postop day #6 Bilateral L1-2, L2-3, L3 4, L4 5 decompressive semi-laminectomy, medial facetectomy for spinal canal decompression. Depression/anxiety Ascending myelopathy Spinal abscess C-spine revealed cord compression C2 through C4 and C4 through C6. T-spine 2-3/ 5 6 and lumbar spine T throughout L2 with essentially ablation of the cord from L2 through L5. Status post emergent surgery per Dr. Chakraborty /2 Acetaminophen 650 mg p.o. every 6 hours as needed pain 1-5/fever Morphine sulfate 2 mg IV every 8 as needed pain 6 or 10 Neurochecks Propofol and fentanyl for goal RASS -2, intubated CV: Dyslipidemia Severe sepsis Early septic shock Maintenance fluids at 125 cc/hr Not requiring vasopressors and/or antihypertensives Currently on atorvastatin 40 mg p.o. daily. Hospital substitution for rosuvastatin 20 mg p.o. daily Given rapidly declining status, we will plan to have norepinephrine and vasopressin available Given duration and severity of critical illness, will likely need stress dose steroids. Will start empirically with hydrocortisone 100 mg IV every 8 hours. Vasopressors increasing. Resp: Acute hypoxic hypercarbic respiratory failure Vent bundle Nebs Wean FiO2 for goal SPO2 greater than 90% No weaning of mechanical ventilation until shock improves and source control is contained Gas exchange acceptable. GI: Postoperative ileus NPO Place gastric tube to suction Likely ileus is multifactorial including severe sepsis and postoperative pain, likely compounded by myelopathy and there could be a neurogenic component to his ileus Famotidine for GI prophylaxis Docusate sodium/senna 1 tablet twice daily for bowel regimen GI consulted : BPH Maintain Reyna catheter Currently on tamsulosin 0.4 mg p.o. daily Recent prostate biopsy. Pathology pending Endo: Sliding scale insulin Accu-Cheks to maintain euglycemia/low regimen Renal: Acute kidney injury- improving Avoid nephrotoxic drugs Monitor urine output Accurate I's and O's Heme: Thrombocytopenia likely secondary to sepsis Anemia secondary to acute blood loss Haptoglobin high. LDH normal. Peripheral smear no signs of schistocytes total bilirubin normal. Status post 2 pack platelets /. Followed by hematology 4 units packed red cells, 4 units FFP. ID: E. coli bacteremia E. coli spinal abscess ID consulted Broad-spectrum metabolic coverage Emergent decompression + washout FEN Replace electrolytes as clinically indicated MSK: Osteoporosis Holding meloxicam 7.5 mg p.o. twice daily. PT/OT evaluate and treat Access -4/5 left subclavian 9 Swedish introducer sheath 4/5 left radial arterial line Reyna Prophylaxis -GI -famotidine -DVT -SCD/holding pharmacologic prophylaxis until acute neurosurgery/severe thrombocytopenia Overall impression: Critically ill with severe sepsis persisting despite surgical source control. Unstable hemodynamics. Prognosis poor. Critical Care 45 mins Vick Mayes MD Jan 10, 2018 16:56
[2018-01-10] MEDS: TAMSULOSIN HCL 0.4 MG CAP PO SCH (20:23)
[2018-01-11] VITALS (19 sets, daily range): BP systolic 106–138; BP diastolic 58–75; PULSE 56–75; RESP 14–17; TEMP 98.2–98.8; O2SAT 90–100
[2018-01-11] MEDS: PROPOFOL 1000 MG/100 ML INJ 100 ML IV PRN ×6 (02:25→21:42)
[2018-01-11] MEDS ORDERED: PHARMACY ORDERED LAB ONE (03:45)
[2018-01-11 04:06] LABS: BASOPHIL % 0.3 % (0.0-2.0); HEMATOCRIT 21.8 % (39.0-51.0); HEMOGLOBIN 7.5 GM/DL (13.0-17.0); LYMPH % 5.1 % (9.0-44.0); LYMPHOCYTE # 0.7 TH/MM3 (1.0-4.8); MEAN CORPUSCULAR HEMOGLOBIN 30.4 PG (27.0-34.0); MEAN CORPUSCULAR HGB CONC 34.5 % (32.0-36.0); MEAN PLATELET VOLUME 8.3 FL (7.0-11.0); MONO % 4.7 % (0.0-8.0); MONOCYTE # 0.7 TH/MM3 (0-0.9); NEUT % 89.9 % (16.0-70.0); PLATELET COUNT 342 TH/MM3 (150-450); RED BLOOD COUNT 2.48 MIL/MM3 (4.50-5.90); RED CELL DISTRIBUTION WIDTH 14.6 % (11.6-17.2); WHITE BLOOD COUNT 14.5 TH/MM3 (4.0-11.0)
[2018-01-11] MEDS: VANCOMYCIN 1,500 MG/NS 500 ML IV SCH ×2 (04:28)
[2018-01-11] MEDS: fentaNYL DRIP 250 ML IV PRN ×3 (04:28→21:42)
[2018-01-11] MEDS: HYDROCORTISONE SOD SUCCINATE 100 MG VIAL IV PUSH SCH ×3 (04:29→21:10)
[2018-01-11 04:40] LABS: ALBUMIN 1.2 GM/DL (3.4-5.0); BICARBONATE 23.8 MEQ/L (21.0-32.0); CALCIUM 6.6 MG/DL (8.5-10.1); CALCIUM-PROTEIN CORRECTED 7.7 MG/DL (8.5-10.1); CREATININE 0.58 MG/DL (0.60-1.30); TOTAL BILIRUBIN ADULT 0.5 MG/DL (0.2-1.0)
[2018-01-11] MEDS: metroNIDAZOLE 500 MG INJ 100 ML IV SCH (05:07)
[2018-01-11] MEDS: POTASSIUM PHOSPHATE/SODIUM PHOSPHATE 250 MG TAB PO SCH ×3 (05:07→17:18)
[2018-01-11] MEDS: ARTIFICIAL TEARS OPTH SOLN 15 ML BTL EACH EYE SCH ×3 (05:07→21:10)
[2018-01-11] MEDS: METOCLOPRAMIDE HCL 10 MG/2 ML VIAL IM SCH ×3 (05:07→21:10)
[2018-01-11] MEDS: NS + KCL 20 MEQ INJ 1,000 ML IV SCH (05:52)
[2018-01-11] MEDS: cefTAZidime INJ 2,000 MG in SODIUM CHLORIDE 0.9% INJ 100 ML IV SCH ×3 (05:52→21:12)
[2018-01-11 07:20] LABS: BANDS 8 % (0-6); LYMPHOCYTES 5 % (9-44); MONOCYTES 3 % (0-8); NEUTROPHIL # MANUAL DIFF 13.3 TH/MM3 (1.8-7.7); POLYS (SEG NEUTROPHILS) 84 % (16-70)
[2018-01-11] MEDS: SODIUM CHLORIDE 0.9% FLUSH 10 ML FLUSH IV FLUSH SCH ×2 (08:06→21:11)
[2018-01-11] MEDS: BISACODYL 10 MG SUPP RECTAL SCH (08:07)
[2018-01-11] MEDS: DOCUSATE SODIUM 50 MG/SENNA 8.6 MG TAB PO SCH ×2 (08:07→21:11)
[2018-01-11] MEDS: METHOCARBAMOL 500 MG TAB PO SCH ×4 (08:07→21:11)
[2018-01-11] MEDS: FAMOTIDINE 20 MG TAB PO SCH ×2 (08:07→21:11)
[2018-01-11] MEDS: ATORVASTATIN 40 MG TAB PO SCH (08:07)
--- NOTE | 2018-01-11 09:08 | HHI.NSPN ---
(Tigre Estrada) History Chief Complaint: Unable to obtain due to patient's clinical condition. (Tigre Estrada) Interval History 01/03: 67-year-old male who underwent a prostate biopsy one week ago, on . He states that on the evening of 12/29/17 on into the morning of 12/30/17, he developed fever and chills, low back pain, and lower extremity numbness and paresthesias and muscle spasm. He was seen by his primary care physician and was given medication including muscle relaxant. The symptoms persisted and he returned to his primary care physician on Wednesday , 01/01/18 and was given additional medications including Cipro. He awoke on 01/02/2018 with increased lower extremity weakness and numbness, and fell in the shower in the morning, after which he was unable to ambulate or lift his legs off the bed, and continued to experience pain in the lower back. He went to the emergency room at [facility], and was given additional medication injections. He states that he could not lift his legs off the bed or ambulate in the emergency room, and was taken out to his car and lifted into the car and sent home again. He fell in the driveway again trying to get back into the house. He apparently did not urinate for the entire day. He has no complaint of pain which is numbness paresthesias in the upper extremities. No numbness or paresthesias over the chest or abdomen or pelvic region. The patient was emergently taken to the operating room for a bilateral L1-2, L2- 3, L3 4, L4 5 decompressive semi-laminectomy, medial facetectomy for spinal canal decompression. Post-operatively the patient remained intubated and was admitted to [facility] for further care and monitoring. 01/04: When seen this afternoon the patient has been extubated. He is awake and alert and readily interacts. He does report pain to the neck and the lower back. He has no numbness, tingling or weakness to the upper extremities but does say he will have pain shooting down them if he moves wrong. He denies any pain to the lower extremities but does have numbness to both feet and about the only movement he is able to do is move his knees medially and laterally. Upon examination the patient's sensorimotor exam is improved from pre-operatively 01/05: The patient desaturated this morning and a Halicat was initiated. From the EMR Nursing reported that the patient was lethargic and difficult to arouse. His sat was in the 80s and he did have a fever of 102F. He was therefore transferred back to [facility]. A chest x-ray demonstrated a left lower lobe consolidation. His blood, urine and lumbar spine wound cultures have all come back positive for Escherichia coli. When seen this afternoon the patient was awake, alert and readily interacted. He was visiting with his significant other. His upper extremity examination was variable with some improvement and some decline. His sensation and motor strength to the lower extremities had declined. The surgical incision looked good upon examination and the GUIDO drain was removed. 01/06: This afternoon the patient is on a nonrebreather mask when seen, he is tachypneic and laboured. He says he has some low back pain, especially at night. He denies any neck pain or headache. He has worsening of his muscle strength to the upper extremities and it remains poor to the lower. 01/07: The patient was urgently intubated yesterday evening for worsening respiratory status and remains so this morning. He underwent emergent surgery for decompression of the cervical and thoracic spines. Post-operatively he returned to [facility]. He is sedated with propofol. He has vasopressin and norepinephrine infusing for blood pressure support. He is obtunded but sedated and there is no response to any stimulation. 01/08: Patient sedated with Diprivan and fentanyl drips. He was biting the tube and was also recently placed on Versed. He is not opening eyes or following commands. He remains sedated for vent synchrony. 01/09: Pt sedated with Diprivan and Fentanyl drips. He nods his head slightly to questions. Intubated a/c. RN reports all bandages are dry with only mild post op staining. 01/10: When seen the patient is lethargic. He is sedated with propofol and midazolam. He continues to be intubated and mechanically ventilated. His significant other stated that the patient was awake a few minutes ago. When he called the patient's name he opened both eyes. He did blink to command. There was no motor response to any stimulation. 01/11: This morning the patient is drowsy when seen. He continues to be sedated with propofol and midazolam. He is still intubated and mechanically ventilated. His eyes open to voice. He does not move the extremities to any stimulation even though his sedation is held. (Tigre Estrada) System Review Comments Unable to obtain due to patient's clinical condition. (Tigre Estrada) Exam Results 01/09/18 01/09/18 01/10/18 01/10/18 01/11/18 01/11/18 06:00 18:00 06:00 18:00 06:00 18:00 Intake Total 2200 ml 150 ml 1250 ml 1815 ml 2651 ml 614 ml Output Total 2605 ml 1232 ml 680 ml 810 ml 825 ml Balance -405 ml -1082 ml 570 ml 1005 ml 1826 ml 614 ml IV Total 2100 ml 1150 ml 1815 ml 2351 ml 614 ml Tube Irrigant 100 ml 150 ml 100 ml 300 ml Output Urine Total 2500 ml 1150 ml 600 ml 700 ml 775 ml Gastric Drainage Total 50 ml 50 ml 50 ml Drainage Total 55 ml 82 ml 30 ml 60 ml 50 ml # Bowel Movements 0 0 0 0 0 Vital Signs Date Time Temp Pulse Resp B/P (MAP) Pulse Ox O2 Delivery O2 Flow Rate FiO2 01/11/18 08:14 98 35 01/11/18 08:00 98.8 67 14 138/67 (90) 99 01/11/18 08:00 35 01/11/18 08:00 68 01/11/18 06:00 70 01/11/18 04:02 100 35 01/11/18 04:00 98.4 64 14 122/64 (83) 100 01/11/18 04:00 35 01/11/18 04:00 64 01/11/18 02:00 59 01/11/18 01:02 99 35 01/11/18 00:00 98.2 68 15 135/65 (88) 100 01/11/18 00:00 35 01/11/18 00:00 68 01/10/18 22:00 63 01/10/18 20:00 35 01/10/18 20:00 97.5 56 15 124/60 (81) 100 01/10/18 20:00 56 01/10/18 19:14 99 35 01/10/18 18:00 54 01/10/18 16:00 97.8 58 14 113/53 (73) 100 01/10/18 16:00 45 01/10/18 16:00 60 01/10/18 14:29 99 35 01/10/18 14:00 48 01/10/18 13:11 53 123/63 01/10/18 12:00 62 01/10/18 12:00 45 01/10/18 12:00 97.5 71 14 110/45 (66) 100 01/10/18 11:33 100 35 01/10/18 10:00 57 01/10/18 08:00 45 01/10/18 08:00 97.9 68 14 132/64 (86) 100 Automatic Cuff 01/10/18 08:00 64 01/10/18 07:49 100 35 01/10/18 07:00 99 Mechanical Ventilator 45 01/10/18 06:00 62 01/10/18 04:00 45 01/10/18 04:00 97.8 55 14 149/72 (97) 100 01/10/18 04:00 55 01/10/18 03:42 100 45 01/10/18 02:00 52 01/10/18 00:00 99 45 01/10/18 00:00 52 01/10/18 00:00 45 01/10/18 00:00 97.4 51 14 132/66 (88) 99 01/09/18 22:00 58 01/09/18 20:00 97.9 63 14 122/64 (83) 98 01/09/18 20:00 63 01/09/18 20:00 45 01/09/18 19:32 66 113/54 01/09/18 19:24 98 45 01/09/18 19:00 99 Mechanical Ventilator 45 01/09/18 18:00 71 01/09/18 16:00 67 01/09/18 16:00 45 01/09/18 16:00 99.7 67 14 98/48 (65) 98 01/09/18 15:19 99 45 01/09/18 14:00 97 01/09/18 12:00 98.6 88 16 144/66 (92) 99 01/09/18 12:00 45 01/09/18 12:00 88 01/09/18 11:31 92 45 01/09/18 10:00 76 01/09/18 08:00 98.8 77 14 117/52 (73) 99 01/09/18 08:00 35 01/09/18 08:00 77 01/09/18 07:43 98 35 01/09/18 07:00 98 Mechanical Ventilator 40 01/09/18 06:00 81 01/09/18 04:00 75 01/09/18 04:00 99.1 78 14 129/57 (81) 99 01/09/18 04:00 50 01/09/18 03:20 98 30 01/09/18 02:00 77 01/09/18 00:00 79 01/09/18 00:00 99.0 79 15 134/67 (89) 98 01/09/18 00:00 50 01/08/18 23:47 99 30 01/08/18 22:30 93 98/47 01/08/18 22:00 85 01/08/18 20:00 85 01/08/18 20:00 97.7 92 15 182/86 (118) 100 01/08/18 20:00 50 01/08/18 19:45 100 40 01/08/18 19:00 99 Mechanical Ventilator 40 01/08/18 18:00 72 01/08/18 16:00 64 01/08/18 16:00 97.3 64 14 116/54 (74) 100 01/08/18 16:00 50 01/08/18 15:34 100 40 01/08/18 14:00 81 01/08/18 12:00 50 01/08/18 12:00 97.7 60 14 120/60 (80) 100 01/08/18 12:00 60 01/08/18 10:00 69 01/08/18 09:09 99 40 (Tigre Estrada) Physical Examination GENERAL: Drowsy but sedated w/propofol 50 mcg/kg/min & midazolam 2 mg/hr infusing. Fentanyl 300 mcg/hr infusing for pain control. Intubated & mechanically ventilated. His skin is cool & dry. Vasopressin infusing at 0.01 units/min for blood pressure support. Sedation held for assessment. HEENT: Normocephalic, atraumatic. Pupils 3 mm, reactive. Orally intubated. OGT. NECK: [place] J cervical collar in place. No JVD. Trachea midline. MUSCULOSKELETAL: No movement of extremities to stimulation. No evident clubbing or deformity. NEUROLOGICAL: Drowsy, sedation held for assessment. Eye opening to voice. Pupils 3 mm & reactive. Nonverbal, intubated. Blinked to command. Nodded head appropriately to questions. No response w/extremities to any stimulation. (Tigre Estrada) Lab, Micro, Other Results Recent Impressions Abdomen X-Ray 01/10/18 0000 Signed Impressions: Service Date/Time: Wednesday, January 10, 2018 04:40 - CONCLUSION: Gaseous distention of multiple bowel loops not significantly changed. Hussein Fontaine MD Laboratory Tests Test 01/09/18 04:09 01/09/18 05:00 01/09/18 05:20 01/10/18 04:45 Blood Gas Puncture Site ART LINE Blood Gas Patient Temperature 98.6 Blood Gas HCO3 25 mmol/L Blood Gas Base Excess 1.3 mmol/L Blood Gas Oxygen Saturation 96 % Arterial Blood pH 7.47 Arterial Blood Partial Pressure CO2 35 mmHg Arterial Blood Partial Pressure O2 102 mmHg Arterial Blood Oxygen Content 14.7 Vol % Arterial Blood Carboxyhemoglobin 1.4 % Arterial Blood Methemoglobin 1.3 % Blood Gas Hemoglobin 10.8 G/DL Oxygen Delivery Device VENTILATOR Blood Gas [facility]750/IT1.0/ Blood Gas Inspired Oxygen 30 % White Blood Count 18.8 TH/MM3 16.7 TH/MM3 Red Blood Count 2.91 MIL/MM3 2.55 MIL/MM3 Hemoglobin 8.9 GM/DL 7.7 GM/DL Hematocrit 25.2 % 22.3 % Mean Corpuscular Volume 86.6 FL 87.3 FL Mean Corpuscular Hemoglobin 30.7 PG 30.2 PG Mean Corpuscular Hemoglobin Concent 35.4 % 34.6 % Red Cell Distribution Width 15.7 % 15.2 % Platelet Count 210 TH/MM3 246 TH/MM3 Mean Platelet Volume 9.1 FL 8.4 FL Neutrophils (%) (Auto) 92.5 % 91.2 % Lymphocytes (%) (Auto) 3.4 % 4.7 % Monocytes (%) (Auto) 4.0 % 3.9 % Eosinophils (%) (Auto) 0.0 % 0.1 % Basophils (%) (Auto) 0.1 % 0.1 % Neutrophils # (Auto) 17.4 TH/MM3 15.2 TH/MM3 Lymphocytes # (Auto) 0.6 TH/MM3 0.8 TH/MM3 Monocytes # (Auto) 0.8 TH/MM3 0.7 TH/MM3 Eosinophils # (Auto) 0.0 TH/MM3 0.0 TH/MM3 Basophils # (Auto) 0.0 TH/MM3 0.0 TH/MM3 CBC Comment DIFF FINAL AUTO DIFF Differential Comment FINAL DIFF MANUAL Blood Urea Nitrogen 19 MG/DL 21 MG/DL Creatinine 0.68 MG/DL 0.60 MG/DL Random Glucose 98 MG/DL 126 MG/DL Total Protein 5.4 GM/DL 5.1 GM/DL Calcium Level 7.0 MG/DL 6.8 MG/DL Sodium Level 143 MEQ/L 146 MEQ/L Potassium Level 4.0 MEQ/L 4.0 MEQ/L Chloride Level 110 MEQ/L 114 MEQ/L Carbon Dioxide Level 25.5 MEQ/L 24.1 MEQ/L Anion Gap 8 MEQ/L 8 MEQ/L Estimat Glomerular Filtration Rate 116 ML/MIN 134 ML/MIN Protein Corrected Calcium 7.9 MG/DL 7.8 MG/DL Magnesium Level 2.1 MG/DL Differential Total Cells Counted 100 Neutrophils % (Manual) 89 % Band Neutrophils % 8 % Lymphocytes % 2 % Neutrophils # (Manual) 16.4 TH/MM3 Myelocytes 1 % Platelet Estimate NORMAL Platelet Morphology Comment NORMAL Albumin 1.2 GM/DL Alkaline Phosphatase 127 U/L Aspartate Amino Transf (AST/SGOT) 46 U/L Alanine Aminotransferase (ALT/SGPT) 29 U/L Total Bilirubin 0.8 MG/DL Test 01/11/18 03:45 White Blood Count 14.5 TH/MM3 Red Blood Count 2.48 MIL/MM3 Hemoglobin 7.5 GM/DL Hematocrit 21.8 % Mean Corpuscular Volume 88.0 FL Mean Corpuscular Hemoglobin 30.4 PG Mean Corpuscular Hemoglobin Concent 34.5 % Red Cell Distribution Width 14.6 % Platelet Count 342 TH/MM3 Mean Platelet Volume 8.3 FL Neutrophils (%) (Auto) 89.9 % Lymphocytes (%) (Auto) 5.1 % Monocytes (%) (Auto) 4.7 % Eosinophils (%) (Auto) 0.0 % Basophils (%) (Auto) 0.3 % Neutrophils # (Auto) 13.0 TH/MM3 Lymphocytes # (Auto) 0.7 TH/MM3 Monocytes # (Auto) 0.7 TH/MM3 Eosinophils # (Auto) 0.0 TH/MM3 Basophils # (Auto) 0.0 TH/MM3 CBC Comment AUTO DIFF Differential Total Cells Counted 100 Neutrophils % (Manual) 84 % Band Neutrophils % 8 % Lymphocytes % 5 % Monocytes % 3 % Neutrophils # (Manual) 13.3 TH/MM3 Differential Comment FINAL DIFF MANUAL Platelet Estimate NORMAL Platelet Morphology Comment NORMAL Red Cell Morphology Comment NORMAL Blood Urea Nitrogen 24 MG/DL Creatinine 0.58 MG/DL Random Glucose 122 MG/DL Total Protein 5.0 GM/DL Albumin 1.2 GM/DL Calcium Level 6.6 MG/DL Alkaline Phosphatase 116 U/L Aspartate Amino Transf (AST/SGOT) 30 U/L Alanine Aminotransferase (ALT/SGPT) 26 U/L Total Bilirubin 0.5 MG/DL Sodium Level 145 MEQ/L Potassium Level 3.9 MEQ/L Chloride Level 114 MEQ/L Carbon Dioxide Level 23.8 MEQ/L Anion Gap 7 MEQ/L Estimat Glomerular Filtration Rate 139 ML/MIN Protein Corrected Calcium 7.7 MG/DL Vancomycin Level Trough 24.3 MCG/ML (Tigre Estrada) Medical Decision Making Impression and Plan Impression: 1. Severe progressive paraplegia. Although he has significant spinal stenosis in the cervical thoracic and lumbar region, his overall presentation and exam suggests that the lumbar stenosis is the immediate cause of his severe lower extremity deficit, positive cauda equina syndrome. 2. Possible sepsis 3. Acute kidney disease 4. 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 Severe lumbar canal stenosis 2. Cauda equina syndrome 3. Cervical degenerative disease with severe stenosis and myelopathy 4. Thoracic disc disease with severe canal stenosis and myelopathy 5. Sepsis 6. Thrombocytopenia 7. Acute kidney disease Postoperative Diagnosis : (1) Cervical disc disease with myelopathy (2) Thoracic disc disease with myelopathy Postoperative Diagnosis : (1) Spinal epidural abscess (2) Thoracic disc disease with myelopathy (3) Lumbar canal stenosis 4. Postoperative lumbar epidural hematoma Respiratory insufficiency, CXR w/LLL consolidation. Ileus suggested by abdominal x-ray . Patient is still critical. He is drowsy but sedated and remains intubated & mechanically ventilated. He opened his eyes to voice & blinked to command but no extremity motor response to any stimulation even though sedation was held for assessment. Intermittent bradycardia. GUIDO #1 (lower back) with 70 mL & #2 (cervical) with 40 mL output the past 24 hrs as of shift change this morning. GUIDO drains #3 (lumbar) & #4 (lumbar) d/c'd 01/10. Reviewed labs for today. Decrease in leukocytosis & drop in haemoglobin level. Sodium 145. AST & alk phos WNL. Sputum culture () w/few epithelial cells, few WBCs, moderate Gram positive cocci in pairs & rare pleomorphic Gram positive rods. Heavy growth normal respiratory kelly on culture, preliminary. Wound culture () positive for Escherichia coli. Blood cultures () no growth x5d, final . Wound culture () positive for Escherichia coli, final . Blood cultures ( & ) positive for Escherichia coli, final . Urine culture () positive for Escherichia coli, final . MRI brain () unremarkable. MRI cervical spine () w/spinal stenosis, no definite cord edema noted but significant cord flattening at multiple levels. MRI thoracic spine () w/multilevel cord compression due to disc protrusions. Cord compression at T10 level due to midline fluid collection. Right parasagittal subcutaneous fluid collection at T10 & T11, abscess suspected. CT chest () w/o abscess identified outside the thoracic spine. Small bilateral pleural effusions. CT abdomen & pelvis () demonstrates multiple lumbar laminectomy defects w/locules of air in the canal & L2 vertebral body which could be r/t infection, cannot exclude abscess formation w/i the canal. Horseshoe kidney w/ nonobstructing calculi bilaterally. Diffuse ileus. Small effusions & mild anasarca. MRI lumbar spine () demonstrated extensive surgical changes. There is a 1.4 cm midline cystic structure just posterior of the thecal sac not clearly present previously which may represent a small seroma which could result in central spinal stenosis. Severe narrowing of the right L4-5 neural foramen w/ almost certain right L4 nerve root compromise. POD #8 () s/p: 1. Bilateral L1-2, L2-3, L3 4, L4 5 decompressive semi-laminectomy, medial facetectomy for spinal canal decompression. POD #4 (-) s/p: Procedure number 1. C2-C6 decompressive laminectomy Procedure number 2,Via separate incision: T2-T6 decompressive laminectomy POD #3 (-) s/p: Part 2 of planned two-part procedure. Procedure #1: 1. [id number] decompressive semi-laminectomy, evacuation thoracic epidural abscess 2. Evacuation thoracic epidural abscess. Procedure #2: Via separate incision. 1. Revision L2-3, L3 4, L4 5 decompressive semi-laminectomy 2. Evacuation lumbar epidural abscess 3. Evacuation of postoperative lumbar epidural hematoma Plan: Discussed patient w/Nursing. Primary & critical care management per [employer]. Neuro checks. Turn patient q2h but keep the patient off of his back. Physical & Occupational Therapy eval & tx. Hold pharmacologic DVT prophylaxis. Mechanical DVT prophylaxis. (Tigre Estrada) Attending Statement The exam, history, and the medical decision-making described in the above note were completed with the assistance of the mid-level provider. I reviewed and agree with the findings presented. I attest that I had a [id number] encounter with the patient on the same day, and personally performed and documented my assessment and findings in the medical record. Remains intubated, sedated. With sedation held, mild eye-opening, no extremity movement. Concern regarding myelitis secondary to infection. Continuing cervical and thoracic drains Continue to position patient off of his back due to increased risk of wound breakdown. On antibiotics per infectious disease. Intensive is following Possible repeat MRI spine later this week to assess for any spinal cord changes. (Jerry Chakraborty MD) Tigre Estrada Jan 11, 2018 09:08 Jerry Chakraborty MD Jan 11, 2018 17:41
--- NOTE | 2018-01-11 10:13 | HHI.GIFU ---
Subjective Remarks Pt intubated. family at bedside. Little change abd exam. No BM. (Deyanira Laboy) Objective Vitals I&O Vital Signs Date Time Temp Pulse Resp B/P (MAP) Pulse Ox O2 Delivery O2 Flow Rate FiO2 01/11/18 10:00 75 01/11/18 08:14 98 35 01/11/18 08:00 98.8 67 14 138/67 (90) 99 01/11/18 08:00 35 01/11/18 08:00 68 01/11/18 06:00 70 01/11/18 04:02 100 35 01/11/18 04:00 98.4 64 14 122/64 (83) 100 01/11/18 04:00 35 01/11/18 04:00 64 01/11/18 02:00 59 01/11/18 01:02 99 35 01/11/18 00:00 98.2 68 15 135/65 (88) 100 01/11/18 00:00 35 01/11/18 00:00 68 01/10/18 22:00 63 01/10/18 20:00 35 01/10/18 20:00 97.5 56 15 124/60 (81) 100 01/10/18 20:00 56 01/10/18 19:14 99 35 01/10/18 18:00 54 01/10/18 16:00 97.8 58 14 113/53 (73) 100 01/10/18 16:00 45 01/10/18 16:00 60 01/10/18 14:29 99 35 01/10/18 14:00 48 01/10/18 13:11 53 123/63 01/10/18 12:00 62 01/10/18 12:00 45 01/10/18 12:00 97.5 71 14 110/45 (66) 100 01/10/18 11:33 100 35 I/O 01/10/18 01/10/18 01/10/18 01/11/18 01/11/18 01/11/18 07:00 15:00 23:00 07:00 15:00 23:00 Intake Total 1665 ml 1100 ml 815 ml 2650 ml Output Total 680 ml 810 ml 825 ml Balance 985 ml 1100 ml 5 ml 1825 ml IV Total 1565 ml 1100 ml 815 ml 2350 ml Tube Irrigant 100 ml 300 ml Output Urine Total 600 ml 700 ml 775 ml Gastric Drainage Total 50 ml 50 ml Drainage Total 30 ml 60 ml 50 ml # Bowel Movements 0 0 0 Laboratory Laboratory Tests Test 01/11/18 03:45 White Blood Count 14.5 Red Blood Count 2.48 Hemoglobin 7.5 Hematocrit 21.8 Mean Corpuscular Volume 88.0 Mean Corpuscular Hemoglobin 30.4 Mean Corpuscular Hemoglobin Concent 34.5 Red Cell Distribution Width 14.6 Platelet Count 342 Mean Platelet Volume 8.3 Neutrophils (%) (Auto) 89.9 Lymphocytes (%) (Auto) 5.1 Monocytes (%) (Auto) 4.7 Eosinophils (%) (Auto) 0.0 Basophils (%) (Auto) 0.3 Neutrophils # (Auto) 13.0 Lymphocytes # (Auto) 0.7 Monocytes # (Auto) 0.7 Eosinophils # (Auto) 0.0 Basophils # (Auto) 0.0 CBC Comment AUTO DIFF Differential Total Cells Counted 100 Neutrophils % (Manual) 84 Band Neutrophils % 8 Lymphocytes % 5 Monocytes % 3 Neutrophils # (Manual) 13.3 Differential Comment FINAL DIFF MANUAL Platelet Estimate NORMAL Platelet Morphology Comment NORMAL Red Cell Morphology Comment NORMAL Blood Urea Nitrogen 24 Creatinine 0.58 Random Glucose 122 Total Protein 5.0 Albumin 1.2 Calcium Level 6.6 Alkaline Phosphatase 116 Aspartate Amino Transf (AST/SGOT) 30 Alanine Aminotransferase (ALT/SGPT) 26 Total Bilirubin 0.5 Sodium Level 145 Potassium Level 3.9 Chloride Level 114 Carbon Dioxide Level 23.8 Anion Gap 7 Estimat Glomerular Filtration Rate 139 Protein Corrected Calcium 7.7 Vancomycin Level Trough 24.3 Date/Time Source Procedure Growth Status 01/05/18 04:00 Blood Peripheral Aerobic Blood Culture - Final NO GROWTH IN 5 DAYS Complete 01/05/18 04:00 Blood Peripheral Anaerobic Blood Culture - Final NO GROWTH IN 5 DAYS Complete 01/08/18 22:22 Sputum Expectorated Sputum Gram Stain - Final Complete 01/08/18 22:22 Sputum Expectorated Sputum Sputum Culture - Final HEAVY GROWTH NORMAL RESPIRATORY JAIME Complete 01/02/18 23:35 Urine Clean Catch Urine Culture - Final Escherichia Coli Complete 01/07/18 22:50 Abscess Back Gram Stain - Final Complete 01/07/18 22:50 Wound Culture - Final Escherichia Coli Complete Imaging Last Impressions Abdomen X-Ray 01/10/18 0000 Signed Impressions: Service Date/Time: Wednesday, January 10, 2018 04:40 - CONCLUSION: Gaseous distention of multiple bowel loops not significantly changed. Hussein Fontaine MD Thoracic Spine X-Ray 01/08/18 0000 Signed Impressions: Service Date/Time: Sunday, January 07, 2018 21:17 - CONCLUSION: Intraoperative spot images of the thoracic spine for localization purposes. Marcial Redmond MD Lumbar Spine X-Ray 01/08/18 Signed Impressions: Service Date/Time: Sunday, January 07, 2018 21:17 - CONCLUSION: Single intraoperative spot image for localization purposes. Marcial Redmond MD Chest X-Ray 01/08/18 0000 Signed Impressions: Service Date/Time: Monday, January 08, 2018 19:43 - CONCLUSION: Left lower lobe atelectasis or consolidation. Harley Ritter MD Thoracic Spine MRI 01/06/18 Signed Impressions: Service Date/Time: January 14:23 - CONCLUSION: 1. Multilevel cord compression is due predominantly to multiple disc protrusions. Significant cord compression is present at least 6 levels. There is also cord compression posteriorly at the T10 level due to a fluid collection in the midline which measures 6 mm in AP dimension. 2. There is also focal subcutaneous right parasagittal fluid collection at T10 and T11 which does not demonstrate peripheral contrast enhancement. An abscess is suspected. Jagjit Wilkinson MD Chest CT 01/06/18 Signed Impressions: Service Date/Time: January 18:51 - CONCLUSION: 1. No abscess identified outside of the thoracic spinal canal. Small bilateral pleural effusions. NG coiled in the stomach. Frederick Rizzo MD Cervical Spine MRI 01/06/18 Signed Impressions: Service Date/Time: January 14:23 - CONCLUSION: 1. Severe degenerative changes with severe spinal stenosis at C2-3, C3-4, C4-5 and C5-6. There is moderate spinal stenosis at C6-7 and C7-T1. Overall assessment of the cord is limited due to motion artifact. I do not definitively see edema within the cord however there is significant flattening of the cord at multiple levels. 2. No significant abnormal contrast enhancement identified. Leonardo Sorenson MD Brain MRI 01/06/18 Signed Impressions: Service Date/Time: January 14:23 - CONCLUSION: 1. Negative MRI of the brain with and without contrast. Jagjit Wilkinson MD Abdomen/Pelvis CT 01/06/18 Signed Impressions: Service Date/Time: January 18:51 - CONCLUSION: 1. Multiple laminectomy defects in the lumbar spine with some locules of air both within the canal and within the L2 vertebral body which could be related to infection. Cannot exclude abscess formation within the canal. 2. 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 3. Diffuse ileus. 4. Small effusions and mild anasarca. 5. Reyna catheter in decompressed bladder. NG coiled in stomach. Frederick Rizzo MD Lumbar Spine MRI 01/05/18 Signed Impressions: Service Date/Time: Friday, January 05, 2018 14:27 - CONCLUSION: 1. Extensive postsurgical changes with apparent left decompressive laminectomy leftward from L1 to through L4-5. 2. There is a well-circumscribed 1.4 cm cystic structure midline just posterior to the thecal sac at L4-5 which was not clearly present previously. May represent a small seroma which could result in some degree of central spinal stenosis despite the left laminectomy. 3. In addition, severe narrowing of the right L4-5 neural foramen with almost certain compromise of the right L4 nerve root. 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 no BM in 4 d and last BM scant. On pain meds. KUB 4/4 mildly prominent loops small and large bowel, suggestive ileus. d/w attending - anemia - likely multifactorial HH stable - elevated LFTs - unclear etiology...DILI vs sepsis vs other etiology. hep panel neg. - leukocytosis - poss epidural abscess, bacteremia, ID following - urosepsis, spinal cord compression s/p decompression, VALENCIA, thrombocytopenia, - per attending. ID, urology following (01/07) Change in clinical condition overnight. Respiratory distress and bilateral lower extremity weakness with progressive weakness of upper extremities. Pt was intubated and taken to OR for C2-C6 decompressive laminectomy and T2-T6 decompressive laminectomy. Pt remains on sedation and mechanically ventilated. Per RN pt had no response to Relistor. NG was placed yesterday, clamped most of the night for surgery, currently to LIWS with 50 mL of output. Abdomen continues to be distended but seems more soft today. No BMs. Bowel sounds active. Possible neurogenic component to ileus. KUB (01/07) Diffuse gas filled distention of colon and small bowel again likely representing ileus. No significant interval change. NG in place. Significant drop in H/H last night down to 6.6/19, currently 8.6/24.2 Thrombocytopenia noted- plts 97. 2 U plts transfused last night Elevated LFTs- AST and ALT WNL. Alk phos trending down. T bili-2.6. CT abdomen and pelvis W IV contrast (01/06) --> Diffuse ileus. Small effusions and mild anasarca. NG coiled in stomach. 01/08/18 decrease in colonic air, Pattern likely ileus. 01/09/18, Still no BM, 1 week., Ileus slow resolution. But Abd. taut, less distention,. 01/10/18 no BM. KUB shows little change gaseous distention. on exam distended, semifirm. 01/11/18 min change abd exam. BS + and more active in lower quadrants. NO BM. d/w CCM, ileus likely d/t neurogenic component they will give neostigmine today PLAN - neostigmine per CCM - KUB am - NGT to LIWS - will need aggressive bowel regimen - Monitor labs - Supportive care Pt has been seen and examined by myself and Dr. Bhardwaj and this note is written on his behalf (Deyanira Laboy) Plan Patient was seen and examined, agree with above-noted, critical care physician Will give neostigmine today, patient has anemia, we'll monitor the hemoglobin and give packed RBC if needed (Fernando Bhardwaj MD) Deyanira Laboy Jan 11, 2018 10:13 Fernando Bhardwaj MD Jan 11, 2018 11:34
--- NOTE | 2018-01-11 10:43 | HHI.CCPN ---
Subjective Remarks/Hospital Course 67-year-old male who underwent a prostate biopsy one week ago, on 12/27/17. On the evening of 12/29/17 he developed fever and chills, low back pain, and lower extremity numbness and paresthesias and muscle spasm. He was seen by his primary care physician and was given medication including muscle relaxant. The symptoms persisted and he returned to his primary care physician on Wednesday, and was given additional medications including Cipro. He awoke on 01/02/2018 with increased lower extremity weakness and numbness, and fell in the shower in the morning, after which he was unable to ambulate or lift his legs off the bed, and continued to experience pain in the lower back. He went to the emergency room at [facility], and was given additional medication injections. He could not lift his legs off the bed or ambulate in the emergency room, and was taken out to his car and lifted into the car and sent home again. He fell in the driveway again trying to get back into the house. He apparently did not urinate for the entire day. He has no complaint of pain which is numbness paresthesias in the upper extremities. No numbness or paresthesias over the chest or abdomen or pelvic region. The MRI of thoracic spine shows severe canal stenosis at T2-3 and T5-6 level with cord compressions, complete or near complete canal obliteration at L2 -3 L3-4 and severe multilevel canal stenosis of the C-spine. The patient is emergently taken to operating room by Dr. Chakraborty. Subjective 01/04: Extubated late afternoon yesterday without any complications. Some sensation bilateral lower extremities. Strength 4-5 bilateral upper extremities. Afebrile. Hemodynamically stable. 01/06: RECONSULT NOTE: reconsulted for respiratory distress. in brief, 67yM with recent prostate biopsy complicated by e. coli bacteremia and lumbar epidural abscess. he was stable and sent to the floor where he developed respiratory distress, fever, tachycardia, tachypnea, diaphoresis. on my exam, patient is in distress, appears toxic. repeat MRI spine demonstrates fluid collections and evidence of spinal compression in cervical, thoracic, and lumbar spinal areas concerning for rapidly ascending abscess with neurologic compromise. also, patient was weak in b/l LEs overnight and now is nearly a complete quad, with only 3/5 distal upper extremity strength left and 1/5 proximal upper extremity strength. 01/07: Persistent septic course. Unable to wean from mechanical ventilation. Infectious Disease service is guiding antimicrobial therapy. 01/08: Back from OR. Vent synchrony much improved with large tidal volume breaths. Urine output acceptable, gas exchange acceptable. 01/09: Continued septic course requiring vasopressors, diffuse general edema. 01/10: Improved control of sepsis after surgical source control. Long recovery, high risk. 01/11: shock improving. now off vasopressors. however, now functionally a quad and minimal if any movement in upper extremities. ileus persists despite aggressive therapy. GI following. pain is a significant problem, on 300 mcg/hr of fentanyl: will need a multimodal approach. Objective Vital Signs Date Time Temp Pulse Resp B/P (MAP) Pulse Ox O2 Delivery O2 Flow Rate FiO2 01/11/18 10:00 75 01/11/18 08:14 98 35 01/11/18 08:00 98.8 14 138/67 (90) 01/10/18 07:00 Mechanical Ventilator Intake and Output 01/11/18 01/11/18 01/12/18 08:00 16:00 00:00 Intake Total 2544 ml Output Total 825 ml Balance 1719 ml Result Diagram: 01/11/18 0345 01/11/18 0345 Other Results Microbiology Date/Time Source Procedure Growth Status 01/08/18 22:22 Sputum Expectorated Sputum Gram Stain - Final Complete 01/08/18 22:22 Sputum Expectorated Sputum Sputum Culture - Final HEAVY GROWTH NORMAL RESPIRATORY JAIME Complete Imaging Last Impressions Thoracic Spine MRI 01/03/18 0000 Signed Impressions: Service Date/Time: Wednesday, January 03, 2018 00:38 - CONCLUSION: Multilevel disc abnormalities. Severe canal stenosis at T2-3 and T5-6 with cord compression and mild signal changes in the cord at T2-3 and moderate signal changes within the cord at T5-6. Less severe changes at L2 additional levels as described. Harley Herrera MD Lumbar Spine MRI 01/03/18 0000 Signed Impressions: Service Date/Time: Wednesday, January 03, 2018 00:38 - CONCLUSION: Complete or near complete canal obliteration at L2-3, L3-4 and L4-5 with less severe compromise at L1-2 and T12-L1. Hraley Herrera MD Cervical Spine MRI 01/03/18 0000 Signed Impressions: Service Date/Time: Wednesday, January 03, 2018 00:38 - CONCLUSION: Severe multilevel canal stenosis. Findings appear to be most critical at C4-5 and C5-6 where AP canal dimension is reduced to 4-5 mm, however also quite severe at C2-3 and C3-4. Harley Herrera MD Chest X-Ray 01/02/18 2302 Signed Impressions: Service Date/Time: Tuesday, January 02, 2018 23:11 - CONCLUSION: Mild basilar atelectasis or scarring. Harley Herrera MD Procedures L1 through L5 decompressive laminectomy. Objective Remarks GENERAL: 67-year-old male, heavily sedated, intubated. SKIN: Warm. HEAD: Normocephalic. EYES: No scleral icterus. No injection or drainage. NECK: Supple, trachea midline. Orally intubated. CARDIOVASCULAR: Tachycardic rate, regular rhythm. sinus. No JVD. RESPIRATORY: Equal chest rise. clear breath sounds. mechanically ventilated. GASTROINTESTINAL: Abdomen soft, mildly distended. nontender. no guarding. MUSCULOSKELETAL: Diffuse edema, well perfused limbs. NEURO EXAM: Heavily sedated, breathes over ventilator. No movement of feet to stimulation, but sedation. Wiggles right fingers. no proximal motor in upper extremities. A/P Assessment and Plan Assessment: 67-year-old male now postop day 4 status post lumbar laminectomy and decompression for epidural abscess who presents now with rapidly progressive spinal abscess with rapidly worsening myelopathy and neurologic function. Now s/p decompression. shock improving. Ileus may be multifactorial from shock, but large component likely neurogenic. will attempt neostigmine to stimulate motility. will need high bowel regimen. attempts to wean off mechanical ventilation have been unsuccessful- will continue to try, but would have low threshold for tracheostomy given continued worsening neurologic functioning. remains critically ill, multiple organs life-threatening, and organ dysfunction persists. Neuro/Psych: Postop day #7 Bilateral L1-2, L2-3, L3 4, L4 5 decompressive semi-laminectomy, medial facetectomy for spinal canal decompression. Depression/anxiety Ascending myelopathy Spinal abscess C-spine revealed cord compression C2 through C4 and C4 through C6. T-spine 2-3/ 5 6 and lumbar spine T throughout L2 with essentially ablation of the cord from L2 through L5. Status post emergent surgery per Dr. Chakraborty / Acetaminophen 650 mg p.o. every 6 hours as needed pain 1-5/fever d/c versed drip wean propofol drip start ketamine drip at 0.5 mg/kg/hr x 24h. one-time dose methadone 30mg iv x 1. gabapentin 600 mg TID. fentanyl is at 300 mcg/hr- will attempt to wean start oxycodone 20mg po q4h scheduled. Morphine sulfate 2 mg IV every 8 as needed pain 6 or 10 Neurochecks may need 24h of lidocaine drip to assist with pain control. CV: Dyslipidemia Severe sepsis septic shock-improving. saline lock ivf. off vasopressors lasix 20mg iv x 1. Currently on atorvastatin 40 mg p.o. daily. Hospital substitution for rosuvastatin 20 mg p.o. daily start hydrocortisone wean. Resp: Acute hypoxic hypercarbic respiratory failure- persistent. Vent bundle Nebs Wean FiO2 for goal SPO2 greater than 90% Gas exchange acceptable. start SBTs. if his neurologic insult is significant enough, may need early trach to facilitate weaning. GI: Postoperative ileus Possible neurogenic ileus NPO NGT to LIWS neostigmine today Likely ileus is multifactorial including severe sepsis and postoperative pain, likely compounded by myelopathy and there could be a neurogenic component to his ileus Famotidine for GI prophylaxis GI consulted increase bowel regimen after neostigmine. : BPH Maintain Reyna catheter Currently on tamsulosin 0.4 mg p.o. daily Recent prostate biopsy. lasix 20mg iv x 1. Endo: Sliding scale insulin Accu-Cheks to maintain euglycemia/low regimen Renal: Acute kidney injury- resolved Avoid nephrotoxic drugs Monitor urine output Accurate I's and O's Heme: Thrombocytopenia likely secondary to sepsis- resolved. Anemia secondary to acute blood loss Haptoglobin high. LDH normal. Peripheral smear no signs of schistocytes total bilirubin normal. Status post 2 pack platelets /. Followed by hematology no indication for transfusion today. continue to monitor daily. ID: E. coli bacteremia E. coli spinal abscess ID consulted Broad-spectrum metabolic coverage Emergent decompression + washout FEN Replace electrolytes as clinically indicated MSK: Osteoporosis Holding meloxicam 7.5 mg p.o. twice daily. PT/OT evaluate and treat Access -4/5 left subclavian 9 Slov[place] introducer sheath 4/5 left radial arterial line Reyna Prophylaxis -GI -famotidine -DVT -SCD/holding pharmacologic prophylaxis until acute neurosurgery Overall impression: Critically ill with severe sepsis. Prognosis poor. Critical Care 37 mins, exclusive of separately billable procedures. Esau Feldman MD Jan 11, 2018 10:43
[2018-01-11] MEDS ORDERED: ATROPINE SULFATE 1 MG/10 ML SYRINGE ONE (10:47)
[2018-01-11] MEDS ORDERED: NEOSTIGMINE 5 MG/5 ML SYRINGE IV PUSH ONE (11:00)
[2018-01-11] MEDS ORDERED: METHADONE 10 MG/ML VIAL IV PUSH ONE (11:00)
[2018-01-11] MEDS ORDERED: FUROSEMIDE 20 MG/2 ML VIAL IV PUSH ONE (12:00)
[2018-01-11] MEDS: oxyCODONE HCL ORAL CONC 5 MG/0.25 ML SYRINGE PO SCH ×3 (12:39→21:11)
[2018-01-11] MEDS: GABAPENTIN 250 MG/5 ML UDC NG SCH ×2 (12:39→17:17)
[2018-01-11] MEDS ORDERED: PEG (High)/E-LYTE SOLN 4000 ML BTL PO ONE (13:00)
--- NOTE | 2018-01-11 13:00 | HHI.IDPN ---
Subjective Subjective Remarks Mr. Reeves is a 67 y/o CM with history of BPH who underwent a prostate biopsy one week ago, on 12/27/17. On the evening of 12/29/17 he developed fever and chills, low back pain, and lower extremity numbness and paresthesias and muscle spasm. He was seen by his primary care physician and was given medication including muscle relaxant. The symptoms persisted and he returned to his primary care physician on 01/01/18 and was given additional medications including Cipro and medrol dose pack. On 01/02/2018 patient woke up with increased lower extremity weakness and numbness, and fell in the shower in the morning, after which he was unable to ambulate or lift his legs off the bed , and continued to experience pain in the lower back. He went to the emergency room at [facility], and was given additional medication injections. He could not lift his legs off the bed or ambulate in the emergency room, and was taken out to his car and lifted into the car and sent home again. He fell in the driveway again trying to get back into the house. He apparently did not urinate for the entire day. He has no complaint of pain which is numbness paresthesias in the upper extremities. Reportedly on admission there was no numbness or paresthesias over the chest or abdomen or pelvic region. The MRI of thoracic spine shows severe canal stenosis at T2-3 and T5-6 level with cord compressions, complete or near complete canal obliteration at L2-3 L3- 4 and severe multilevel canal stenosis of the C-spine. Entire spine including C spine shows areas of stenosis. Upon my discussion with patient had to be emergently taken to the OR for decompression. Intraop cultures were taken and no hardware placed at present time but it appears that patient will need more surgeries. The MRIs done were non contrast due to Acute renal failure on admission and cannot be repeated. Per dw plan is to treat as epidural abscess stone since patient was treated for few days with antibiotics prior to arrival and also due to patient needing hardware placement which can be seeded. Previously, Intubated, being weaned off sedation, UO is good peck in place. Not on any pressors. There is a plan wean and extubate. ID consulted for evaluation and Management of GN madonna bacteremia (E.coli CTX M negative) and possible epidural abscess. Patient underwent procedure C2-C6 decompressive laminectomy, procedure to T2-T6 decompressive laminectomy as well as lumbar. (Separate incisions) by Dr. Chakraborty Reviewed overnight events. Discussed with RN. Tanacross J collar in place. Temps 99.7 F Not on pressors. No rash, no diarrhea. Ileus No BM yet. Neostigmine being tried today. Movement of UE bilaterally but not against gravity. Antibiotics Ceftaz, Vanco IV, Flagyl IV Lines Line sites with no e.o infection Past Medical History reviewed Allergies: Coded Allergies: No Known Allergies (Unverified , 01/02/18) Objective . Vital Signs Date Time Temp Pulse Resp B/P (MAP) Pulse Ox O2 Delivery O2 Flow Rate FiO2 01/11/18 12:28 98 45 01/11/18 12:00 35 01/11/18 12:00 61 01/11/18 10:00 75 01/11/18 08:14 98 35 01/11/18 08:00 98.8 67 14 138/67 (90) 99 01/11/18 08:00 35 01/11/18 08:00 68 01/11/18 06:00 70 01/11/18 04:02 100 35 01/11/18 04:00 98.4 64 14 122/64 (83) 100 01/11/18 04:00 35 01/11/18 04:00 64 01/11/18 02:00 59 01/11/18 01:02 99 35 01/11/18 00:00 98.2 68 15 135/65 (88) 100 01/11/18 00:00 35 01/11/18 00:00 68 01/10/18 22:00 63 01/10/18 20:00 35 01/10/18 20:00 97.5 56 15 124/60 (81) 100 01/10/18 20:00 56 01/10/18 19:14 99 35 01/10/18 18:00 54 01/10/18 16:00 97.8 58 14 113/53 (73) 100 01/10/18 16:00 45 01/10/18 16:00 60 01/10/18 14:29 99 35 01/10/18 14:00 48 01/10/18 13:11 53 123/63 . Laboratory Tests Test 01/10/18 04:45 01/11/18 03:45 White Blood Count 16.7 TH/MM3 14.5 TH/MM3 Red Blood Count 2.55 MIL/MM3 2.48 MIL/MM3 Hemoglobin 7.7 GM/DL 7.5 GM/DL Hematocrit 22.3 % 21.8 % Mean Corpuscular Volume 87.3 FL 88.0 FL Mean Corpuscular Hemoglobin 30.2 PG 30.4 PG Mean Corpuscular Hemoglobin Concent 34.6 % 34.5 % Red Cell Distribution Width 15.2 % 14.6 % Platelet Count 246 TH/MM3 342 TH/MM3 Mean Platelet Volume 8.4 FL 8.3 FL Neutrophils (%) (Auto) 91.2 % 89.9 % Lymphocytes (%) (Auto) 4.7 % 5.1 % Monocytes (%) (Auto) 3.9 % 4.7 % Eosinophils (%) (Auto) 0.1 % 0.0 % Basophils (%) (Auto) 0.1 % 0.3 % Neutrophils # (Auto) 15.2 TH/MM3 13.0 TH/MM3 Lymphocytes # (Auto) 0.8 TH/MM3 0.7 TH/MM3 Monocytes # (Auto) 0.7 TH/MM3 0.7 TH/MM3 Eosinophils # (Auto) 0.0 TH/MM3 0.0 TH/MM3 Basophils # (Auto) 0.0 TH/MM3 0.0 TH/MM3 CBC Comment AUTO DIFF AUTO DIFF Differential Total Cells Counted 100 100 Neutrophils % (Manual) 89 % 84 % Band Neutrophils % 8 % 8 % Lymphocytes % 2 % 5 % Neutrophils # (Manual) 16.4 TH/MM3 13.3 TH/MM3 Myelocytes 1 % Differential Comment FINAL DIFF MANUAL FINAL DIFF MANUAL Platelet Estimate NORMAL NORMAL Platelet Morphology Comment NORMAL NORMAL Monocytes % 3 % Red Cell Morphology Comment NORMAL Laboratory Tests Test 01/10/18 04:45 01/11/18 03:45 Blood Urea Nitrogen 21 MG/DL 24 MG/DL Creatinine 0.60 MG/DL 0.58 MG/DL Random Glucose 126 MG/DL 122 MG/DL Total Protein 5.1 GM/DL 5.0 GM/DL Albumin 1.2 GM/DL 1.2 GM/DL Calcium Level 6.8 MG/DL 6.6 MG/DL Alkaline Phosphatase 127 U/L 116 U/L Aspartate Amino Transf (AST/SGOT) 46 U/L 30 U/L Alanine Aminotransferase (ALT/SGPT) 29 U/L 26 U/L Total Bilirubin 0.8 MG/DL 0.5 MG/DL Sodium Level 146 MEQ/L 145 MEQ/L Potassium Level 4.0 MEQ/L 3.9 MEQ/L Chloride Level 114 MEQ/L 114 MEQ/L Carbon Dioxide Level 24.1 MEQ/L 23.8 MEQ/L Anion Gap 8 MEQ/L 7 MEQ/L Estimat Glomerular Filtration Rate 134 ML/MIN 139 ML/MIN Protein Corrected Calcium 7.8 MG/DL 7.7 MG/DL Microbiology Date/Time Source Procedure Growth Status 01/08/18 22:22 Sputum Expectorated Sputum Gram Stain - Final Complete 01/08/18 22:22 Sputum Expectorated Sputum Sputum Culture - Final HEAVY GROWTH NORMAL RESPIRATORY JAIME Complete Imaging Last Impressions Abdomen X-Ray 01/08/18 0600 Signed Impressions: Service Date/Time: Monday, January 08, 2018 03:53 - CONCLUSION: Decrease in colonic air filled distention. Pattern likely represents ileus. Marcial Redmond MD Thoracic Spine X-Ray 01/08/18 0000 Signed Impressions: Service Date/Time: Sunday, January 07, 2018 21:17 - CONCLUSION: Intraoperative spot images of the thoracic spine for localization purposes. Marcial Redmond MD Lumbar Spine X-Ray 01/08/18 0000 Signed Impressions: Service Date/Time: Sunday, January 07, 2018 21:17 - CONCLUSION: Single intraoperative spot image for localization purposes. Marcial Redmond MD Chest X-Ray 01/08/18 0000 Signed Impressions: Service Date/Time: Monday, January 08, 2018 19:43 - CONCLUSION: Left lower lobe atelectasis or consolidation. Harley Ritter MD Thoracic Spine MRI 01/06/18 0000 Signed Impressions: Service Date/Time: January 14:23 - CONCLUSION: 1. Multilevel cord compression is due predominantly to multiple disc protrusions. Significant cord compression is present at least 6 levels. There is also cord compression posteriorly at the T10 level due to a fluid collection in the midline which measures 6 mm in AP dimension. 2. There is also focal subcutaneous right parasagittal fluid collection at T10 and T11 which does not demonstrate peripheral contrast enhancement. An abscess is suspected. Jagjit Wilkinson MD Chest CT 01/06/18 0000 Signed Impressions: Service Date/Time: January 18:51 - CONCLUSION: 1. No abscess identified outside of the thoracic spinal canal. Small bilateral pleural effusions. NG coiled in the stomach. Frederick Rizzo MD Cervical Spine MRI 01/06/18 0000 Signed Impressions: Service Date/Time: January 14:23 - CONCLUSION: 1. Severe degenerative changes with severe spinal stenosis at C2-3, C3-4, C4-5 and C5-6. There is moderate spinal stenosis at C6-7 and C7-T1. Overall assessment of the cord is limited due to motion artifact. I do not definitively see edema within the cord however there is significant flattening of the cord at multiple levels. 2. No significant abnormal contrast enhancement identified. Leonardo Sorenson MD Brain MRI 01/06/18 0000 Signed Impressions: Service Date/Time: January 14:23 - CONCLUSION: 1. Negative MRI of the brain with and without contrast. Jagjit Wilkinson MD Abdomen/Pelvis CT 01/06/18 0000 Signed Impressions: Service Date/Time: January 18:51 - CONCLUSION: 1. Multiple laminectomy defects in the lumbar spine with some locules of air both within the canal and within the L2 vertebral body which could be related to infection. Cannot exclude abscess formation within the canal. 2. 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 3. Diffuse ileus. 4. Small effusions and mild anasarca. 5. Peck catheter in decompressed bladder. NG coiled in stomach. Frederick Rizzo MD Lumbar Spine MRI 01/05/18 0000 Signed Impressions: Service Date/Time: Friday, January 05, 2018 14:27 - CONCLUSION: 1. Extensive postsurgical changes with apparent left decompressive laminectomy leftward from L1 to through L4-5. 2. There is a well-circumscribed 1.4 cm cystic structure midline just posterior to the thecal sac at L4-5 which was not clearly present previously. May represent a small seroma which could result in some degree of central spinal stenosis despite the left laminectomy. 3. In addition, severe narrowing of the right L4-5 neural foramen with almost certain compromise of the right L4 nerve root. Emir Bowles MD Physical Exam GENERAL: This is a well-nourished, well-developed patient, intubated, sedated. SKIN: Warm and dry. HEAD: Normocephalic. EYES: Pupils equal round. No scleral icterus. No injection or drainage. ENT: No thrush, dry oral mucosa. Nose without bleeding. Airway patent. NECK: Trachea midline. Tanacross J collar in place. CARDIOVASCULAR: Tachycardic. RESPIRATORY: Diminished breath sounds. No wheezes, rales, or rhonchi. Intubated on mechanical ventilation. GASTROINTESTINAL: Abdomen non-tender, soft, slightly distended. Hypoactive bowel sounds. NG tube in place clamped. : Peck catheter draining gila colored urine. Significant scrotal edema. BACK: GUIDO drain x 4, one cervical, one thoracic and 2 lumbar - all with serosanguineous drainage. Surgical incisions healing well per nursing report. MUSCULOSKELETAL: Extremities without clubbing, cyanosis. Generalized edema +1 of extremities. NEUROLOGICAL: Intubated, sedated. LINES: Left IJ central line in place. Assessment & Plan Remarks Severe Sepsis present on admission (leucocytosis, Tachycardia, source: bacteremia and epidural abscess. E.coli bacteremia high grade E.Coli UTI recent prostate biopsy. 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 (Cervical,Thoracic and Lumbar on 4 spots) Recent history of prostate biopsy as risk factor for E.coli bacteremia. Paraparesis present on admission. Recs: Continue Ceftazidime IV for E.coli Sepsis and Osteomyelitis of C,T,L spine plus epidural abscesses. DC Vanco IV no MRSA identified. DC Flagyl as no anaerobes identified and can contribute to encephalopathy. Follow clinically and cultures. dw significant other: jose alberto Valdivia about early trach. Concern that the manipulation of neck could worsen the UE weakness. He said he would think about it and is thankful of care provided. Shanda Charles MD Jan 11, 2018 13:00
[2018-01-11] MEDS ORDERED: FUROSEMIDE 40 MG/4 ML VIAL IV PUSH ONE (18:30)
[2018-01-11] MEDS: KETAMINE INJ 500 MG in SODIUM CHLORID 0.9% 500 ML INJ 500 ML IV SCH (20:21)
[2018-01-11] MEDS: TAMSULOSIN HCL 0.4 MG CAP PO SCH (21:00)
[2018-01-11] MEDS ORDERED: VANCOMYCIN 1,500 MG/NS 500 ML IV SCH ×2 (22:00)
[2018-01-12] VITALS (18 sets, daily range): BP systolic 95–155; BP diastolic 50–78; PULSE 66–90; RESP 14–23; TEMP 98.1–100.1; O2SAT 92–100
[2018-01-12] MEDS: oxyCODONE HCL ORAL CONC 5 MG/0.25 ML SYRINGE PO SCH ×6 (02:24→22:11)
[2018-01-12] MEDS: POTASSIUM PHOSPHATE/SODIUM PHOSPHATE 250 MG TAB PO SCH ×4 (02:24→17:59)
[2018-01-12] MEDS: PROPOFOL 1000 MG/100 ML INJ 100 ML IV PRN ×2 (03:02→06:46)
[2018-01-12] MEDS: KETAMINE INJ 500 MG in SODIUM CHLORID 0.9% 500 ML INJ 500 ML IV SCH ×2 (04:56→13:40)
[2018-01-12] MEDS: cefTAZidime INJ 2,000 MG in SODIUM CHLORIDE 0.9% INJ 100 ML IV SCH ×3 (05:36→22:09)
[2018-01-12] MEDS: HYDROCORTISONE SOD SUCCINATE 100 MG VIAL IV PUSH SCH ×3 (05:36→20:40)
[2018-01-12] MEDS: ARTIFICIAL TEARS OPTH SOLN 15 ML BTL EACH EYE SCH ×3 (05:36→22:12)
--- NOTE | 2018-01-12 05:36 | RADRPT ---
EXAM DATE/TIME: 01/12/2018 04:57 [facility] COMPARISON: ABDOMEN KUB ONLY, January 08, 2018, 3:53. INDICATIONS : Evaluate for ileus. MEDICAL HISTORY : Benign prostatic hyperplasia, (BPH). Cord compression. SURGICAL HISTORY : Prostate biopsy. Kidney biopsy. ENCOUNTER: Subsequent ACUITY: 1 week PAIN SCORE: Non-responsive. LOCATION: Bilateral abdomen. FINDINGS: Supine view of the abdomen was performed. Mild gaseous distention of bowel loops. Postsurgical hameed es. No abnormal masses, calcifications, or organomegaly is seen. The osseous structures are unremar kable. CONCLUSION: Mild gaseous distention possibly ileus. Hussein Fontaine MD on January 12, 2018 at 5:34 Board Certified Radiologist. This report was verified electronically.
[2018-01-12] MEDS: METOCLOPRAMIDE HCL 10 MG/2 ML VIAL IM SCH ×3 (05:37→22:00)
[2018-01-12 06:16] LABS: AUTOMATED NEUTROPHIL # 10.9 TH/MM3 (1.8-7.7); BASOPHIL # 0.1 TH/MM3 (0-0.2); BASOPHIL % 0.6 % (0.0-2.0); EOSINOPHIL % 0.3 % (0.0-4.0); HEMATOCRIT 24.2 % (39.0-51.0); HEMOGLOBIN 8.5 GM/DL (13.0-17.0); LYMPH % 7.3 % (9.0-44.0); LYMPHOCYTE # 0.9 TH/MM3 (1.0-4.8); MEAN CELL VOLUME 88.9 FL (80.0-100.0); MEAN CORPUSCULAR HEMOGLOBIN 31.3 PG (27.0-34.0); MEAN CORPUSCULAR HGB CONC 35.3 % (32.0-36.0); MEAN PLATELET VOLUME 7.6 FL (7.0-11.0); MONO % 4.5 % (0.0-8.0); MONOCYTE # 0.6 TH/MM3 (0-0.9); NEUT % 87.3 % (16.0-70.0); PLATELET COUNT 435 TH/MM3 (150-450); RED BLOOD COUNT 2.72 MIL/MM3 (4.50-5.90); RED CELL DISTRIBUTION WIDTH 14.6 % (11.6-17.2); WHITE BLOOD COUNT 12.5 TH/MM3 (4.0-11.0)
[2018-01-12] MEDS: fentaNYL DRIP 250 ML IV PRN (06:46)
[2018-01-12 07:22] LABS: ALBUMIN 1.2 GM/DL (3.4-5.0); BICARBONATE 26.9 MEQ/L (21.0-32.0); CALCIUM 6.6 MG/DL (8.5-10.1); CALCIUM-PROTEIN CORRECTED 7.5 MG/DL (8.5-10.1); CREATININE 0.56 MG/DL (0.60-1.30); TOTAL BILIRUBIN ADULT 0.5 MG/DL (0.2-1.0); TOTAL PROTEIN 5.3 GM/DL (6.4-8.2)
[2018-01-12 07:59] LABS: BANDS 12 % (0-6); LYMPHOCYTES 1 % (9-44); METAMYELOCYTES 2 % (0-1); MONOCYTES 1 % (0-8); POLYS (SEG NEUTROPHILS) 82 % (16-70)
[2018-01-12] MEDS: GABAPENTIN 250 MG/5 ML UDC NG SCH ×3 (08:29→18:00)
[2018-01-12] MEDS: METHOCARBAMOL 500 MG TAB PO SCH ×4 (08:29→20:41)
[2018-01-12] MEDS: ATORVASTATIN 40 MG TAB PO SCH (08:29)
[2018-01-12] MEDS: FAMOTIDINE 20 MG TAB PO SCH ×2 (08:29→20:40)
[2018-01-12] MEDS ORDERED: POTASSIUM PHOSPHATE MONOBASIC 500 MG TAB PO/TUBE PRN (08:30)
[2018-01-12] MEDS ORDERED: POTASSIUM PHOSPHATE MONOBASIC 500 MG TAB PO PRN (08:30)
[2018-01-12] MEDS ORDERED: METOLAZONE 2.5 MG TAB PO ONE (08:30)
[2018-01-12] MEDS ORDERED: MAGNESIUM SULFATE INJ 4 GM in SODIUM CHLORIDE 0.9% INJ 92 ML IV PRN (08:30)
[2018-01-12] MEDS ORDERED: POTASSIUM CHLORIDE 25 MEQ EFFERVESCENT TAB PO ONE (08:30)
[2018-01-12] MEDS ORDERED: POTASSIUM PHOSPHATE INJ 30 MMOL in SODIUM CHLOR 0.9% 250 ML INJ 250 ML IV PRN (08:30)
[2018-01-12] MEDS ORDERED: POTASSIUM CHLOR 20 MEQ PREMIX 100 ML IV PRN ×2 (08:30)
[2018-01-12] MEDS ORDERED: MAGNESIUM OXIDE 400 MG TAB PO PRN (08:30)
[2018-01-12] MEDS ORDERED: MAGNESIUM SULFATE INJ 2 GM in SODIUM CHLORIDE 0.9% INJ 96 ML IV PRN (08:30)
[2018-01-12] MEDS ORDERED: MAGNESIUM SULFATE 1 GM PREMIX 100 ML IV SCH (08:30)
[2018-01-12] MEDS ORDERED: SODIUM PHOSPHATE INJ 30 MMOL in SODIUM CHLOR 0.9% 250 ML INJ 240 ML IV PRN (08:30)
--- NOTE | 2018-01-12 08:50 | HHI.CCPN ---
Subjective Remarks/Hospital Course 67-year-old male who underwent a prostate biopsy one week ago, on 12/27/17. On the evening of 12/29/17 he developed fever and chills, low back pain, and lower extremity numbness and paresthesias and muscle spasm. He was seen by his primary care physician and was given medication including muscle relaxant. The symptoms persisted and he returned to his primary care physician on Wednesday, and was given additional medications including Cipro. He awoke on 01/02/2018 with increased lower extremity weakness and numbness, and fell in the shower in the morning, after which he was unable to ambulate or lift his legs off the bed, and continued to experience pain in the lower back. He went to the emergency room at [facility], and was given additional medication injections. He could not lift his legs off the bed or ambulate in the emergency room, and was taken out to his car and lifted into the car and sent home again. He fell in the driveway again trying to get back into the house. He apparently did not urinate for the entire day. He has no complaint of pain which is numbness paresthesias in the upper extremities. No numbness or paresthesias over the chest or abdomen or pelvic region. The MRI of thoracic spine shows severe canal stenosis at T2-3 and T5-6 level with cord compressions, complete or near complete canal obliteration at L2 -3 L3-4 and severe multilevel canal stenosis of the C-spine. The patient is emergently taken to operating room by Dr. Chakraborty. Subjective 01/04: Extubated late afternoon yesterday without any complications. Some sensation bilateral lower extremities. Strength 4-5 bilateral upper extremities. Afebrile. Hemodynamically stable. 01/06: RECONSULT NOTE: reconsulted for respiratory distress. in brief, 67yM with recent prostate biopsy complicated by e. coli bacteremia and lumbar epidural abscess. he was stable and sent to the floor where he developed respiratory distress, fever, tachycardia, tachypnea, diaphoresis. on my exam, patient is in distress, appears toxic. repeat MRI spine demonstrates fluid collections and evidence of spinal compression in cervical, thoracic, and lumbar spinal areas concerning for rapidly ascending abscess with neurologic compromise. also, patient was weak in b/l LEs overnight and now is nearly a complete quad, with only 3/5 distal upper extremity strength left and 1/5 proximal upper extremity strength. 01/07: Persistent septic course. Unable to wean from mechanical ventilation. Infectious Disease service is guiding antimicrobial therapy. 01/08: Back from OR. Vent synchrony much improved with large tidal volume breaths. Urine output acceptable, gas exchange acceptable. 01/09: Continued septic course requiring vasopressors, diffuse general edema. 01/10: Improved control of sepsis after surgical source control. Long recovery, high risk. 01/11: shock improving. now off vasopressors. however, now functionally a quad and minimal if any movement in upper extremities. ileus persists despite aggressive therapy. GI following. pain is a significant problem, on 300 mcg/hr of fentanyl: will need a multimodal approach. 01/12: successful bowel regimen overnight with good bowel movements. however, due to 4L GoLytely, did not achieve optimal diuresis. pain better controlled and decreasing fentanyl requirement. Objective Vital Signs Date Time Temp Pulse Resp B/P (MAP) Pulse Ox O2 Delivery O2 Flow Rate FiO2 01/12/18 06:00 72 01/12/18 04:12 96 35 01/12/18 04:00 98.4 16 144/78 (100) 01/10/18 07:00 Mechanical Ventilator Intake and Output 01/12/18 01/12/18 01/13/18 08:00 16:00 00:00 Intake Total 5150 ml Output Total 4940 ml Balance 210 ml Result Diagram: 01/12/18 0544 01/12/18 0544 Imaging Last Impressions Thoracic Spine MRI 01/03/18 0000 Signed Impressions: Service Date/Time: Wednesday, January 03, 2018 00:38 - CONCLUSION: Multilevel disc abnormalities. Severe canal stenosis at T2-3 and T5-6 with cord compression and mild signal changes in the cord at T2-3 and moderate signal changes within the cord at T5-6. Less severe changes at L2 additional levels as described. Harley Herrera MD Lumbar Spine MRI 01/03/18 0000 Signed Impressions: Service Date/Time: Wednesday, January 03, 2018 00:38 - CONCLUSION: Complete or near complete canal obliteration at L2-3, L3-4 and L4-5 with less severe compromise at L1-2 and T12-L1. Harley Herrera MD Cervical Spine MRI 01/03/18 0000 Signed Impressions: Service Date/Time: Wednesday, January 03, 2018 00:38 - CONCLUSION: Severe multilevel canal stenosis. Findings appear to be most critical at C4-5 and C5-6 where AP canal dimension is reduced to 4-5 mm, however also quite severe at C2-3 and C3-4. Harley Herrera MD Chest X-Ray 01/02/18 2302 Signed Impressions: Service Date/Time: Tuesday, January 02, 2018 23:11 - CONCLUSION: Mild basilar atelectasis or scarring. Harley Herrera MD Procedures L1 through L5 decompressive laminectomy. Objective Remarks GENERAL: 67-year-old male, heavily sedated, intubated. SKIN: Warm. HEAD: Normocephalic. EYES: No scleral icterus. No injection or drainage. NECK: Supple, trachea midline. Orally intubated. CARDIOVASCULAR: Tachycardic rate, regular rhythm. sinus. No JVD. RESPIRATORY: Equal chest rise. clear breath sounds. mechanically ventilated. GASTROINTESTINAL: Abdomen soft, mildly distended. nontender. no guarding. MUSCULOSKELETAL: Diffuse edema, well perfused limbs. NEURO EXAM: Heavily sedated, breathes over ventilator. No movement of feet to stimulation, but sedation. Wiggles right fingers. no proximal motor in upper extremities. A/P Assessment and Plan Assessment: 67-year-old male now postop day 5 status post lumbar laminectomy and decompression for epidural abscess who presents now with rapidly progressive spinal abscess with rapidly worsening myelopathy and neurologic function. Now s/p decompression. shock resolved. Ileus may be multifactorial from shock, but large component likely neurogenic. continue aggressive bowel regimen. start enteral nutrition. will attempt forced diuresis and SBT today. Again, very low threshold for tracheostomy to help facilitate weaning. Neuro/Psych: Postop day #8 Bilateral L1-2, L2-3, L3 4, L4 5 decompressive semi-laminectomy, medial facetectomy for spinal canal decompression. Depression/anxiety Ascending myelopathy Spinal abscess C-spine revealed cord compression C2 through C4 and C4 through C6. T-spine 2-3/ 5 6 and lumbar spine T throughout L2 with essentially ablation of the cord from L2 through L5. Status post emergent surgery per Dr. Chakraborty 4/2 Acetaminophen 650 mg p.o. every 6 hours as needed pain 1-5/fever wean propofol drip ketamine drip at 0.5 mg/kg/hr x 24h, then transition to 0.25 mg/kg/hr tonight. gabapentin 600 mg TID. fentanyl is at 250 mcg/hr- will attempt to wean start oxycodone 20mg po q4h scheduled. Morphine sulfate 2 mg IV every 8 as needed pain 6 or 10 Neurochecks may need 24h of lidocaine drip to assist with pain control. CV: Dyslipidemia Severe sepsis septic shock- resolved. saline lock ivf. off vasopressors lasix 40mg iv q6h scheduled. metolazone 2.5mg po x 1. Currently on atorvastatin 40 mg p.o. daily. Hospital substitution for rosuvastatin 20 mg p.o. daily continue hydrocortisone wean. Resp: Acute hypoxic hypercarbic respiratory failure- persistent. Vent bundle Nebs Wean FiO2 for goal SPO2 greater than 90% Gas exchange acceptable. start SBTs. if his neurologic insult is significant enough, may need early trach to facilitate weaning. ok with early trach. neurosurgery ok with early trach. GI: Neurogenic ileus- resolving. Acute protein calorie malnutrition- moderate restart tube feeds. senna/colace, lactulose, miralax, dulcolax supp daily. prn mag citrate if no BM daily. Likely ileus is multifactorial including severe sepsis and postoperative pain, likely compounded by myelopathy and neurogenic component to his ileus Famotidine for GI prophylaxis GI consulted send prealbumin. trend weekly. : BPH Maintain Reyna catheter per urology. Currently on tamsulosin 0.4 mg p.o. daily Recent prostate biopsy. lasix 40mg iv q6h with metolazone 2.5 mg po x 1. Endo: Sliding scale insulin Accu-Cheks to maintain euglycemia/low regimen Renal: Acute kidney injury- resolved Avoid nephrotoxic drugs Monitor urine output Accurate I's and O's Heme: Thrombocytopenia likely secondary to sepsis- resolved. Anemia secondary to acute blood loss Haptoglobin high. LDH normal. Peripheral smear no signs of schistocytes total bilirubin normal. Status post 2 pack platelets 4/3. Followed by hematology no indication for transfusion today. continue to monitor daily. ID: E. coli bacteremia E. coli spinal abscess ID consulted Broad-spectrum metabolic coverage Emergent decompression + washout FEN Hypokalemia Replace electrolytes as clinically indicated ICU electrolyte protocol MSK: Osteoporosis Holding meloxicam 7.5 mg p.o. twice daily. PT/OT evaluate and treat Access -4/5 left subclavian 9 [place] introducer sheath: keep today while needing access. may be good PICC line candidate. 4/5 left radial arterial line: keep today while weaning ventilation. Reyna Prophylaxis -GI -famotidine -DVT -SCD/holding pharmacologic prophylaxis until acute neurosurgery Overall impression: Critically ill with severe sepsis. Prognosis poor. Esau Feldman MD Jan 12, 2018 08:50
[2018-01-12] MEDS: SODIUM CHLORIDE 0.9% FLUSH 10 ML FLUSH IV FLUSH SCH ×2 (09:00→20:41)
[2018-01-12] MEDS: BISACODYL 10 MG SUPP RECTAL SCH (09:00)
--- NOTE | 2018-01-12 09:33 | HHI.IDPN ---
Subjective Subjective Remarks ID COVERAGE Mr. Reeves is a 67 y/o CM with history of BPH who underwent a prostate biopsy one week ago, on 12/27/17. On the evening of 12/29/17 he developed fever and chills, low back pain, and lower extremity numbness and paresthesias and muscle spasm. He was seen by his primary care physician and was given medication including muscle relaxant. The symptoms persisted and he returned to his primary care physician on 01/01/18 and was given additional medications including Cipro and medrol dose pack. On 01/02/2018 patient woke up with increased lower extremity weakness and numbness, and fell in the shower in the morning, after which he was unable to ambulate or lift his legs off the bed , and continued to experience pain in the lower back. He went to the emergency room at [facility], and was given additional medication injections. He could not lift his legs off the bed or ambulate in the emergency room, and was taken out to his car and lifted into the car and sent home again. He fell in the driveway again trying to get back into the house. He apparently did not urinate for the entire day. He has no complaint of pain which is numbness paresthesias in the upper extremities. Reportedly on admission there was no numbness or paresthesias over the chest or abdomen or pelvic region. The MRI of thoracic spine shows severe canal stenosis at T2-3 and T5-6 level with cord compressions, complete or near complete canal obliteration at L2-3 L3- 4 and severe multilevel canal stenosis of the C-spine. Entire spine including C spine shows areas of stenosis. Upon my discussion with patient had to be emergently taken to the OR for decompression. Intraop cultures were taken and no hardware placed at present time but it appears that patient will need more surgeries. The MRIs done were non contrast due to Acute renal failure on admission and cannot be repeated. Per dw plan is to treat as epidural abscess stnoe since patient was treated for few days with antibiotics prior to arrival and also due to patient needing hardware placement which can be seeded. Previously, Intubated, being weaned off sedation, UO is good peck in place. Not on any pressors. There is a plan wean and extubate. ID consulted for evaluation and Management of GN madonna bacteremia (E.coli CTX M negative) and possible epidural abscess. Patient underwent procedure C2-C6 decompressive laminectomy, procedure to T2-T6 decompressive laminectomy as well as lumbar. (Separate incisions) by Dr. Chakraborty Notes reviewed Has evidence of lumbar and thoracic epidural abscess Saxman J collar in place. Temps ok Not on pressors. On the vent Now with liquid stool Has some movement of UE, none in LE WBC improving Cultures reviewed Antibiotics Ceftazidime Current Medications Medications (Trade) Dose Ordered Sig/Kaveh Route Start Time Stop Time Status Last Admin (Robaxin) 500 mg QID PO 01/03/18 09:00 01/12/18 08:29 (Flomax) 0.4 mg HS PO 01/03/18 21:00 01/09/18 20:57 (Lipitor) 40 mg DAILY PO 01/03/18 09:00 01/12/18 08:29 (NS Flush) 2 ml UNSCH PRN IV FLUSH 01/03/18 05:00 (NS Flush) 2 ml BID IV FLUSH 01/03/18 09:00 01/11/18 21:11 (Tylenol) 650 mg Q6H PRN PO 01/03/18 05:00 01/05/18 10:28 (Zofran Inj) 4 mg Q6H PRN IV PUSH 01/03/18 05:00 01/05/18 15:50 (Roxana-Colace) 1 tab BID PO 01/03/18 09:00 01/11/18 21:11 (Tears Naturale Opth Soln) 1 drop Q8HR EACH EYE 01/03/18 14:00 01/12/18 05:36 (Albuterol Neb) 2.5 mg Q2HR NEB PRN NEB 01/03/18 10:00 01/09/18 11:30 (Pepcid) 20 mg BID PO 01/04/18 21:00 01/12/18 08:29 (K-Phos Neutral) 250 mg Q6HR PO 01/05/18 18:00 01/12/18 05:37 (Morphine Inj) 2 mg Q4H PRN IV PUSH 01/05/18 15:45 01/08/18 03:42 Ceftazidime 2000 mg/Sodium Chloride 100 ml @ 200 mls/hr Q8H IV 01/06/18 14:00 01/12/18 05:36 (Reglan Inj) 10 mg Q8HR IM 01/06/18 22:00 01/12/18 05:37 Propofol 100 ml @ 2.826 mls/ hr TITRATE PRN IV 01/06/18 19:30 01/12/18 06:46 Fentanyl Citrate 250 ml @ 5 mls/hr TITRATE PRN IV 01/06/18 19:30 01/12/18 06:46 (Dulcolax Supp) 10 mg DAILY RECTAL 01/09/18 16:15 01/11/18 08:07 Ketamine HCl 500 mg/Sodium Chloride 510 ml @ 0 mls/hr Q0M IV 01/11/18 12:00 01/12/18 04:56 (SoluCORTEF INJ) 50 mg Taper Q8H IV PUSH 01/11/18 12:00 01/15/18 11:59 01/12/18 05:36 (Neurontin Liq) 600 mg TID NG 01/11/18 13:00 01/12/18 08:29 (Roxicodone Intensol Liq) 20 mg Q4H PO 01/11/18 12:00 01/12/18 08:29 (Lasix Inj) 40 mg Q6H IV PUSH 01/12/18 09:00 Potassium Chloride 100 ml @ 50 mls/hr Q2H PRN IV 01/12/18 08:30 Potassium Chloride 100 ml @ 50 mls/hr Q2H PRN IV 01/12/18 08:30 (K-Lyte Cl Eff) 50 meq UNSCH PRN PO 01/12/18 08:30 Potassium Chloride 100 ml @ 25 mls/hr UNSCH PRN IV 01/12/18 08:30 Potassium Chloride 100 ml @ 50 mls/hr Q2H PRN IV 01/12/18 08:30 Magnesium Sulfate 4 gm/Sodium Chloride 100 ml @ 50 mls/hr UNSCH PRN IV 01/12/18 08:30 (Mag-Ox) 800 mg UNSCH PRN PO 01/12/18 08:30 Magnesium Sulfate 2 gm/Sodium Chloride 100 ml @ 50 mls/hr UNSCH PRN IV 01/12/18 08:30 (K-Phos) 2,000 mg Q4H PRN PO 01/12/18 08:30 Sodium Phosphate 30 mmol/Sodium Chloride 250 ml @ 42 mls/hr UNSCH PRN IV 01/12/18 08:30 (K-Phos) 2,000 mg UNSCH PRN PO/TUBE 01/12/18 08:30 Potassium Phosphate 30 mmol/ Sodium Chloride 260 ml @ 42 mls/hr UNSCH PRN IV 01/12/18 08:30 (Miralax) 17 gm BID PO 01/12/18 09:00 (Lactulose Liq) 30 ml BID PO 01/12/18 09:00 Magnesium Sulfate/ Dextrose 100 ml @ 100 mls/hr Q1H IV 01/12/18 08:30 01/12/18 09:31 Lines Line sites with no e.o infection - LSC Past Medical History Depression BPH Hypothyroidism Past Surgical History Prostate biopsy, Tonsillectomy, history of kidney surgery. Prostate surgery Allergies: Coded Allergies: No Known Allergies (Unverified , 01/02/18) Objective . Vital Signs Date Time Temp Pulse Resp B/P (MAP) Pulse Ox O2 Delivery O2 Flow Rate FiO2 01/12/18 08:59 96 35 01/12/18 06:00 72 01/12/18 04:12 96 35 01/12/18 04:00 35 01/12/18 04:00 66 01/12/18 04:00 98.4 66 16 144/78 (100) 100 01/12/18 02:00 66 01/12/18 00:00 98.1 72 14 136/65 (88) 92 01/12/18 00:00 72 01/12/18 00:00 35 01/11/18 23:35 95 35 01/11/18 22:00 66 01/11/18 21:03 94 35 01/11/18 20:00 35 01/11/18 20:00 66 01/11/18 20:00 98.4 66 17 108/58 (75) 90 01/11/18 18:09 99 35 01/11/18 18:00 60 01/11/18 16:00 98.2 58 14 106/63 (77) 100 01/11/18 16:00 35 01/11/18 16:00 56 01/11/18 14:00 72 01/11/18 12:28 98 45 01/11/18 12:00 98.8 66 14 134/75 (94) 99 01/11/18 12:00 35 01/11/18 12:00 61 01/11/18 10:00 75 . Laboratory Tests Test 01/11/18 03:45 01/12/18 05:44 White Blood Count 14.5 TH/MM3 12.5 TH/MM3 Red Blood Count 2.48 MIL/MM3 2.72 MIL/MM3 Hemoglobin 7.5 GM/DL 8.5 GM/DL Hematocrit 21.8 % 24.2 % Mean Corpuscular Volume 88.0 FL 88.9 FL Mean Corpuscular Hemoglobin 30.4 PG 31.3 PG Mean Corpuscular Hemoglobin Concent 34.5 % 35.3 % Red Cell Distribution Width 14.6 % 14.6 % Platelet Count 342 TH/MM3 435 TH/MM3 Mean Platelet Volume 8.3 FL 7.6 FL Neutrophils (%) (Auto) 89.9 % 87.3 % Lymphocytes (%) (Auto) 5.1 % 7.3 % Monocytes (%) (Auto) 4.7 % 4.5 % Eosinophils (%) (Auto) 0.0 % 0.3 % Basophils (%) (Auto) 0.3 % 0.6 % Neutrophils # (Auto) 13.0 TH/MM3 10.9 TH/MM3 Lymphocytes # (Auto) 0.7 TH/MM3 0.9 TH/MM3 Monocytes # (Auto) 0.7 TH/MM3 0.6 TH/MM3 Eosinophils # (Auto) 0.0 TH/MM3 0.0 TH/MM3 Basophils # (Auto) 0.0 TH/MM3 0.1 TH/MM3 CBC Comment AUTO DIFF AUTO DIFF Differential Total Cells Counted 100 100 Neutrophils % (Manual) 84 % 82 % Band Neutrophils % 8 % 12 % Lymphocytes % 5 % 1 % Monocytes % 3 % 1 % Neutrophils # (Manual) 13.3 TH/MM3 12.0 TH/MM3 Differential Comment FINAL DIFF MANUAL FINAL DIFF MANUAL Platelet Estimate NORMAL NORMAL Platelet Morphology Comment NORMAL NORMAL Red Cell Morphology Comment NORMAL Eosinophils % 2 % Metamyelocytes 2 % Laboratory Tests Test 01/11/18 03:45 01/12/18 05:44 Blood Urea Nitrogen 24 MG/DL 20 MG/DL Creatinine 0.58 MG/DL 0.56 MG/DL Random Glucose 122 MG/DL 93 MG/DL Total Protein 5.0 GM/DL 5.3 GM/DL Albumin 1.2 GM/DL 1.2 GM/DL Calcium Level 6.6 MG/DL 6.6 MG/DL Alkaline Phosphatase 116 U/L 124 U/L Aspartate Amino Transf (AST/SGOT) 30 U/L 28 U/L Alanine Aminotransferase (ALT/SGPT) 26 U/L 23 U/L Total Bilirubin 0.5 MG/DL 0.5 MG/DL Sodium Level 145 MEQ/L 145 MEQ/L Potassium Level 3.9 MEQ/L 3.0 MEQ/L Chloride Level 114 MEQ/L 110 MEQ/L Carbon Dioxide Level 23.8 MEQ/L 26.9 MEQ/L Anion Gap 7 MEQ/L 8 MEQ/L Estimat Glomerular Filtration Rate 139 ML/MIN 145 ML/MIN Protein Corrected Calcium 7.7 MG/DL 7.5 MG/DL Imaging Abdomen X-Ray 01/12/18599 Signed Impressions: Service Date/Time: Friday, January 12, 2018 04:57 - CONCLUSION: Mild gaseous distention possibly ileus. Hussein Fontaine MD Abdomen X-Ray 01/08/18599 Signed Impressions: Service Date/Time: Monday, January 08, 2018 03:53 - CONCLUSION: Decrease in colonic air filled distention. Pattern likely represents ileus. Marcial Redmond MD Thoracic Spine X-Ray 01/08/18 0000 Signed Impressions: Service Date/Time: Sunday, January 07, 2018 21:17 - CONCLUSION: Intraoperative spot images of the thoracic spine for localization purposes. Marcial Redmond MD Lumbar Spine X-Ray 01/08/18 0000 Signed Impressions: Service Date/Time: Sunday, January 07, 2018 21:17 - CONCLUSION: Single intraoperative spot image for localization purposes. Macrial Redmond MD Chest X-Ray 01/08/18 0000 Signed Impressions: Service Date/Time: Monday, January 08, 2018 19:43 - CONCLUSION: Left lower lobe atelectasis or consolidation. Harley Ritter MD Thoracic Spine MRI 01/06/18 0000 Signed Impressions: Service Date/Time: January 14:23 - CONCLUSION: 1. Multilevel cord compression is due predominantly to multiple disc protrusions. Significant cord compression is present at least 6 levels. There is also cord compression posteriorly at the T10 level due to a fluid collection in the midline which measures 6 mm in AP dimension. 2. There is also focal subcutaneous right parasagittal fluid collection at T10 and T11 which does not demonstrate peripheral contrast enhancement. An abscess is suspected. Jagjit Wilkinson MD Chest CT 01/06/18 Signed Impressions: Service Date/Time: January 18:51 - CONCLUSION: 1. No abscess identified outside of the thoracic spinal canal. Small bilateral pleural effusions. NG coiled in the stomach. Frederick Rizzo MD Cervical Spine MRI 01/06/18 Signed Impressions: Service Date/Time: January 14:23 - CONCLUSION: 1. Severe degenerative changes with severe spinal stenosis at C2-3, C3-4, C4-5 and C5-6. There is moderate spinal stenosis at C6-7 and C7-T1. Overall assessment of the cord is limited due to motion artifact. I do not definitively see edema within the cord however there is significant flattening of the cord at multiple levels. 2. No significant abnormal contrast enhancement identified. Leonardo Sorenson MD Brain MRI 01/06/18 Signed Impressions: Service Date/Time: January 14:23 - CONCLUSION: 1. Negative MRI of the brain with and without contrast. Jagjit Wilkinson MD Abdomen/Pelvis CT 01/06/18 Signed Impressions: Service Date/Time: January 18:51 - CONCLUSION: 1. Multiple laminectomy defects in the lumbar spine with some locules of air both within the canal and within the L2 vertebral body which could be related to infection. Cannot exclude abscess formation within the canal. 2. 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 3. Diffuse ileus. 4. Small effusions and mild anasarca. 5. Peck catheter in decompressed bladder. NG coiled in stomach. Frederick Rizzo MD Lumbar Spine MRI 01/05/18 Signed Impressions: Service Date/Time: Friday, January 05, 2018 14:27 - CONCLUSION: 1. Extensive postsurgical changes with apparent left decompressive laminectomy leftward from L1 to through L4-5. 2. There is a well-circumscribed 1.4 cm cystic structure midline just posterior to the thecal sac at L4-5 which was not clearly present previously. May represent a small seroma which could result in some degree of central spinal stenosis despite the left laminectomy. 3. In addition, severe narrowing of the right L4-5 neural foramen with almost certain compromise of the right L4 nerve root. Emir Bowles MD Physical Exam GENERAL: This is a well-nourished, well-developed patient, intubated, sedated. SKIN: Warm and dry. HEAD: Normocephalic. EYES: Pupils equal round. No scleral icterus. No injection or drainage. ENT: Orally intubated, no nasal discharge NECK: Trachea midline. Saxman J collar in place. CARDIOVASCULAR: Tachycardic. RESPIRATORY: Has scattered rhonchi GASTROINTESTINAL: Abdomen non-tender, soft, slightly distended. Hypoactive bowel sounds. NG tube in place clamped. : Peck catheter draining gila colored urine. Significant scrotal edema. BACK: GUIDO drain x 4, one cervical, one thoracic and 2 lumbar - all with serosanguineous drainage. Surgical incisions healing well per nursing report. MUSCULOSKELETAL: Extremities without clubbing, cyanosis. Generalized edema +1 of extremities. NEUROLOGICAL: Intubated, sedated. LINES: Left IJ central line in place. Assessment & Plan Remarks Severe Sepsis present on admission (leucocytosis, Tachycardia, source: bacteremia and epidural abscess. E.coli bacteremia high grade E.Coli UTI recent prostate biopsy. PNA aspiration/HCAP Epidural abscess, thoracic and lumbar, C/S E coli - S/P surgery and evacuation Recent history of prostate biopsy as risk factor for E.coli bacteremia. Paraparesis present on admission. Recs: Continue Ceftazidime IV for E.coli Sepsis and Osteomyelitis of C,T,L spine plus epidural abscesses. DC Vanco IV no MRSA identified. DC Flagyl as no anaerobes identified and can contribute to encephalopathy. Weaning may be difficult due to incomplete quad Monitor progress Laura Rocha MD Jan 12, 2018 09:33
--- NOTE | 2018-01-12 09:57 | HHI.NSPN ---
(Tigre Estrada) History Chief Complaint: Unable to obtain due to patient's clinical condition. (Tigre Estrada) Interval History 01/03: 67-year-old male who underwent a prostate biopsy one week ago, on . He states that on the evening of 12/29/17 on into the morning of 12/30/17, he developed fever and chills, low back pain, and lower extremity numbness and paresthesias and muscle spasm. He was seen by his primary care physician and was given medication including muscle relaxant. The symptoms persisted and he returned to his primary care physician on Wednesday , 01/01/18 and was given additional medications including Cipro. He awoke on 01/02/2018 with increased lower extremity weakness and numbness, and fell in the shower in the morning, after which he was unable to ambulate or lift his legs off the bed, and continued to experience pain in the lower back. He went to the emergency room at [facility], and was given additional medication injections. He states that he could not lift his legs off the bed or ambulate in the emergency room, and was taken out to his car and lifted into the car and sent home again. He fell in the driveway again trying to get back into the house. He apparently did not urinate for the entire day. He has no complaint of pain which is numbness paresthesias in the upper extremities. No numbness or paresthesias over the chest or abdomen or pelvic region. The patient was emergently taken to the operating room for a bilateral L1-2, L2- 3, L3 4, L4 5 decompressive semi-laminectomy, medial facetectomy for spinal canal decompression. Post-operatively the patient remained intubated and was admitted to [facility] for further care and monitoring. 01/04: When seen this afternoon the patient has been extubated. He is awake and alert and readily interacts. He does report pain to the neck and the lower back. He has no numbness, tingling or weakness to the upper extremities but does say he will have pain shooting down them if he moves wrong. He denies any pain to the lower extremities but does have numbness to both feet and about the only movement he is able to do is move his knees medially and laterally. Upon examination the patient's sensorimotor exam is improved from pre-operatively 01/05: The patient desaturated this morning and a Halicat was initiated. From the EMR Nursing reported that the patient was lethargic and difficult to arouse. His sat was in the 80s and he did have a fever of 102F. He was therefore transferred back to [facility]. A chest x-ray demonstrated a left lower lobe consolidation. His blood, urine and lumbar spine wound cultures have all come back positive for Escherichia coli. When seen this afternoon the patient was awake, alert and readily interacted. He was visiting with his significant other. His upper extremity examination was variable with some improvement and some decline. His sensation and motor strength to the lower extremities had declined. The surgical incision looked good upon examination and the GUIDO drain was removed. 01/06: This afternoon the patient is on a nonrebreather mask when seen, he is tachypneic and laboured. He says he has some low back pain, especially at night. He denies any neck pain or headache. He has worsening of his muscle strength to the upper extremities and it remains poor to the lower. 01/07: The patient was urgently intubated yesterday evening for worsening respiratory status and remains so this morning. He underwent emergent surgery for decompression of the cervical and thoracic spines. Post-operatively he returned to [facility]. He is sedated with propofol. He has vasopressin and norepinephrine infusing for blood pressure support. He is obtunded but sedated and there is no response to any stimulation. 01/08: Patient sedated with Diprivan and fentanyl drips. He was biting the tube and was also recently placed on Versed. He is not opening eyes or following commands. He remains sedated for vent synchrony. 01/09: Pt sedated with Diprivan and Fentanyl drips. He nods his head slightly to questions. Intubated a/c. RN reports all bandages are dry with only mild post op staining. 01/10: When seen the patient is lethargic. He is sedated with propofol and midazolam. He continues to be intubated and mechanically ventilated. His significant other stated that the patient was awake a few minutes ago. When he called the patient's name he opened both eyes. He did blink to command. There was no motor response to any stimulation. 01/11: This morning the patient is drowsy when seen. He continues to be sedated with propofol and midazolam. He is still intubated and mechanically ventilated. His eyes open to voice. He does not move the extremities to any stimulation even though his sedation is held. 01/12: The patient is drowsy. He is on ketamine for sedation and pain control. He remains intubated and mechanically ventilated. He opened his eyes to voice. He indicated he had no pain. He weakly gripped with the right hand to command and gave a thumbs up. His needle bar molder was strong when local noxious stimulation was applied. He had no response with the other extremities to local noxious stimulation. (Tigre Estrada) Exam Results 01/10/18 01/10/18 01/11/18 01/11/18 01/12/18 01/12/18 06:00 18:00 06:00 18:00 06:00 18:00 Intake Total 1250 ml 1815 ml 2651 ml 1162 ml 5150 ml 450 ml Output Total 680 ml 810 ml 825 ml 2065 ml 4940 ml Balance 570 ml 1005 ml 1826 ml -903 ml 210 ml 450 ml IV Total 1150 ml 1815 ml 2351 ml 1162 ml 1060 ml 450 ml Tube Feeding 4000 ml Tube Irrigant 100 ml 300 ml 90 ml Output Urine Total 600 ml 700 ml 775 ml 1975 ml 4000 ml Stool Total 900 ml Gastric Drainage Total 50 ml 50 ml 50 ml Drainage Total 30 ml 60 ml 50 ml 40 ml 40 ml # Bowel Movements 0 0 0 0 2 Vital Signs Date Time Temp Pulse Resp B/P (MAP) Pulse Ox O2 Delivery O2 Flow Rate FiO2 01/12/18 08:59 96 35 01/12/18 06:00 72 01/12/18 04:12 96 35 01/12/18 04:00 35 01/12/18 04:00 66 01/12/18 04:00 98.4 66 16 144/78 (100) 100 01/12/18 02:00 66 01/12/18 00:00 98.1 72 14 136/65 (88) 92 01/12/18 00:00 72 01/12/18 00:00 35 01/11/18 23:35 95 35 01/11/18 22:00 66 01/11/18 21:03 94 35 01/11/18 20:00 35 01/11/18 20:00 66 01/11/18 20:00 98.4 66 17 108/58 (75) 90 01/11/18 18:09 99 35 01/11/18 18:00 60 01/11/18 16:00 98.2 58 14 106/63 (77) 100 01/11/18 16:00 35 01/11/18 16:00 56 01/11/18 14:00 72 01/11/18 12:28 98 45 01/11/18 12:00 98.8 66 14 134/75 (94) 99 01/11/18 12:00 35 01/11/18 12:00 61 01/11/18 10:00 75 01/11/18 08:14 98 35 01/11/18 08:00 98.8 67 14 138/67 (90) 99 01/11/18 08:00 35 01/11/18 08:00 68 01/11/18 06:00 70 01/11/18 04:02 100 35 01/11/18 04:00 98.4 64 14 122/64 (83) 100 01/11/18 04:00 35 01/11/18 04:00 64 01/11/18 02:00 59 01/11/18 01:02 99 35 01/11/18 00:00 98.2 68 15 135/65 (88) 100 01/11/18 00:00 35 01/11/18 00:00 68 01/10/18 22:00 63 01/10/18 20:00 35 01/10/18 20:00 97.5 56 15 124/60 (81) 100 01/10/18 20:00 56 01/10/18 19:14 99 35 01/10/18 18:00 54 01/10/18 16:00 97.8 58 14 113/53 (73) 100 01/10/18 16:00 45 01/10/18 16:00 60 01/10/18 14:29 99 35 01/10/18 14:00 48 01/10/18 13:11 53 123/63 01/10/18 12:00 62 01/10/18 12:00 45 01/10/18 12:00 97.5 71 14 110/45 (66) 100 01/10/18 11:33 100 35 01/10/18 10:00 57 01/10/18 08:00 45 01/10/18 08:00 97.9 68 14 132/64 (86) 100 Automatic Cuff 01/10/18 08:00 64 01/10/18 07:49 100 35 01/10/18 07:00 99 Mechanical Ventilator 45 01/10/18 06:00 62 01/10/18 04:00 45 01/10/18 04:00 97.8 55 14 149/72 (97) 100 01/10/18 04:00 55 01/10/18 03:42 100 45 01/10/18 02:00 52 01/10/18 00:00 99 45 01/10/18 00:00 52 01/10/18 00:00 45 01/10/18 00:00 97.4 51 14 132/66 (88) 99 01/09/18 22:00 58 01/09/18 20:00 97.9 63 14 122/64 (83) 98 01/09/18 20:00 63 01/09/18 20:00 45 01/09/18 19:32 66 113/54 01/09/18 19:24 98 45 01/09/18 19:00 99 Mechanical Ventilator 45 01/09/18 18:00 71 01/09/18 16:00 67 01/09/18 16:00 45 01/09/18 16:00 99.7 67 14 98/48 (65) 98 01/09/18 15:19 99 45 01/09/18 14:00 97 01/09/18 12:00 98.6 88 16 144/66 (92) 99 01/09/18 12:00 45 01/09/18 12:00 88 01/09/18 11:31 92 45 01/09/18 10:00 76 (Tigre Estrada) Physical Examination GENERAL: Drowsy but sedated w/ketamine. Intubated & mechanically ventilated. His skin is cool & dry. HEENT: Normocephalic, atraumatic. Orally intubated. OGT. NECK: [place] cervical collar in place. No JVD. Trachea midline. MUSCULOSKELETAL: [place]al needle bar molder with right hand to command but strong w/noxious stimulation. No evident clubbing or deformity. NEUROLOGICAL: Drowsy, on ketamine. Eye opening to voice. Nonverbal, intubated. Blinked & nodded head appropriately to questions. Weak right hand squeeze & thumbs up to command. Strong hand squeeze w/local noxious stimulation. No response to the other extremities to local noxious stimulation. (Tigre Estrada) Lab, Micro, Other Results Recent Impressions Abdomen X-Ray 01/12/18 0600 Signed Impressions: Service Date/Time: Friday, January 12, 2018 04:57 - CONCLUSION: Mild gaseous distention possibly ileus. Hussein Fontaine MD Abdomen X-Ray 01/10/18 0000 Signed Impressions: Service Date/Time: Wednesday, January 10, 2018 04:40 - CONCLUSION: Gaseous distention of multiple bowel loops not significantly changed. Hussein Fontaine MD Laboratory Tests Test 01/10/18 04:45 01/11/18 03:45 01/12/18 05:44 White Blood Count 16.7 TH/MM3 14.5 TH/MM3 12.5 TH/MM3 Red Blood Count 2.55 MIL/MM3 2.48 MIL/MM3 2.72 MIL/MM3 Hemoglobin 7.7 GM/DL 7.5 GM/DL 8.5 GM/DL Hematocrit 22.3 % 21.8 % 24.2 % Mean Corpuscular Volume 87.3 FL 88.0 FL 88.9 FL Mean Corpuscular Hemoglobin 30.2 PG 30.4 PG 31.3 PG Mean Corpuscular Hemoglobin Concent 34.6 % 34.5 % 35.3 % Red Cell Distribution Width 15.2 % 14.6 % 14.6 % Platelet Count 246 TH/MM3 342 TH/MM3 435 TH/MM3 Mean Platelet Volume 8.4 FL 8.3 FL 7.6 FL Neutrophils (%) (Auto) 91.2 % 89.9 % 87.3 % Lymphocytes (%) (Auto) 4.7 % 5.1 % 7.3 % Monocytes (%) (Auto) 3.9 % 4.7 % 4.5 % Eosinophils (%) (Auto) 0.1 % 0.0 % 0.3 % Basophils (%) (Auto) 0.1 % 0.3 % 0.6 % Neutrophils # (Auto) 15.2 TH/MM3 13.0 TH/MM3 10.9 TH/MM3 Lymphocytes # (Auto) 0.8 TH/MM3 0.7 TH/MM3 0.9 TH/MM3 Monocytes # (Auto) 0.7 TH/MM3 0.7 TH/MM3 0.6 TH/MM3 Eosinophils # (Auto) 0.0 TH/MM3 0.0 TH/MM3 0.0 TH/MM3 Basophils # (Auto) 0.0 TH/MM3 0.0 TH/MM3 0.1 TH/MM3 CBC Comment AUTO DIFF AUTO DIFF AUTO DIFF Differential Total Cells Counted 100 100 100 Neutrophils % (Manual) 89 % 84 % 82 % Band Neutrophils % 8 % 8 % 12 % Lymphocytes % 2 % 5 % 1 % Neutrophils # (Manual) 16.4 TH/MM3 13.3 TH/MM3 12.0 TH/MM3 Myelocytes 1 % Differential Comment FINAL DIFF MANUAL FINAL DIFF MANUAL FINAL DIFF MANUAL Platelet Estimate NORMAL NORMAL NORMAL Platelet Morphology Comment NORMAL NORMAL NORMAL Blood Urea Nitrogen 21 MG/DL 24 MG/DL 20 MG/DL Creatinine 0.60 MG/DL 0.58 MG/DL 0.56 MG/DL Random Glucose 126 MG/DL 122 MG/DL 93 MG/DL Total Protein 5.1 GM/DL 5.0 GM/DL 5.3 GM/DL Albumin 1.2 GM/DL 1.2 GM/DL 1.2 GM/DL Calcium Level 6.8 MG/DL 6.6 MG/DL 6.6 MG/DL Alkaline Phosphatase 127 U/L 116 U/L 124 U/L Aspartate Amino Transf (AST/SGOT) 46 U/L 30 U/L 28 U/L Alanine Aminotransferase (ALT/SGPT) 29 U/L 26 U/L 23 U/L Total Bilirubin 0.8 MG/DL 0.5 MG/DL 0.5 MG/DL Sodium Level 146 MEQ/L 145 MEQ/L 145 MEQ/L Potassium Level 4.0 MEQ/L 3.9 MEQ/L 3.0 MEQ/L Chloride Level 114 MEQ/L 114 MEQ/L 110 MEQ/L Carbon Dioxide Level 24.1 MEQ/L 23.8 MEQ/L 26.9 MEQ/L Anion Gap 8 MEQ/L 7 MEQ/L 8 MEQ/L Estimat Glomerular Filtration Rate 134 ML/MIN 139 ML/MIN 145 ML/MIN Protein Corrected Calcium 7.8 MG/DL 7.7 MG/DL 7.5 MG/DL Monocytes % 3 % 1 % Red Cell Morphology Comment NORMAL Vancomycin Level Trough 24.3 MCG/ML Eosinophils % 2 % Metamyelocytes 2 % (Tigre Estrada) Medical Decision Making Impression and Plan Impression: 1. Severe progressive paraplegia. Although he has significant spinal stenosis in the cervical thoracic and lumbar region, his overall presentation and exam suggests that the lumbar stenosis is the immediate cause of his severe lower extremity deficit, positive cauda equina syndrome. 2. Possible sepsis 3. Acute kidney disease 4. 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 Severe lumbar canal stenosis 2. Cauda equina syndrome 3. Cervical degenerative disease with severe stenosis and myelopathy 4. Thoracic disc disease with severe canal stenosis and myelopathy 5. Sepsis 6. Thrombocytopenia 7. Acute kidney disease Postoperative Diagnosis : (1) Cervical disc disease with myelopathy (2) Thoracic disc disease with myelopathy Postoperative Diagnosis : (1) Spinal epidural abscess (2) Thoracic disc disease with myelopathy (3) Lumbar canal stenosis 4. Postoperative lumbar epidural hematoma Respiratory insufficiency, CXR w/LLL consolidation. Ileus suggested by abdominal x-ray . Patient guarded. He is drowsy but sedated and remains intubated & mechanically ventilated. He opened his eyes to voice & blinked/nodded appropriately. Right hand squeeze to command & gave a thumbs up, no other extremity motor response to noxious stimulation. GUIDO #1 (lower back) with 50 mL & #2 (cervical) with 30 mL output the past 24 hrs as of shift change this morning. GUIDO drains #3 (lumbar) & #4 (lumbar) d/c'd 01/10. Reviewed labs for today. Improvement in leukocytosis & haemoglobin level. Sodium 145. Hypokalemia. Alk phos mildly elevated. Sputum culture () w/heavy growth normal respiratory kelly on culture, final . Wound culture () positive for Escherichia coli, final . Blood cultures () no growth x5d, final . Wound culture () positive for Escherichia coli, final . Blood cultures ( & ) positive for Escherichia coli, final . Urine culture () positive for Escherichia coli, final . POD #9 () s/p: 1. Bilateral L1-2, L2-3, L3 4, L4 5 decompressive semi-laminectomy, medial facetectomy for spinal canal decompression. POD #5 (-06) s/p: Procedure number 1. C2-C6 decompressive laminectomy Procedure number 2,Via separate incision: T2-T6 decompressive laminectomy POD #4 (-) s/p: Part 2 of planned two-part procedure. Procedure #1: 1. [id number] decompressive semi-laminectomy, evacuation thoracic epidural abscess 2. Evacuation thoracic epidural abscess. Procedure #2: Via separate incision. 1. Revision L2-3, L3 4, L4 5 decompressive semi-laminectomy 2. Evacuation lumbar epidural abscess 3. Evacuation of postoperative lumbar epidural hematoma Plan: Discussed patient w/Nursing. Primary & critical care management per Dean Of Faculty. Neuro checks. Turn patient q2h but keep the patient off of his back. Physical & Occupational Therapy eval & tx. Hold pharmacologic DVT prophylaxis. Mechanical DVT prophylaxis. (Tigre Estrada) Attending Statement The exam, history, and the medical decision-making described in the above note were completed with the assistance of the mid-level provider. I reviewed and agree with the findings presented. I attest that I had a [id number] encounter with the patient on the same day, and personally performed and documented my assessment and findings in the medical record. (Dakota Hou MD) Tigre Estrada Jan 12, 2018 09:57 Dakota Hou MD Jan 16, 2018 20:30
[2018-01-12] MEDS: LACTULOSE SYRUP 20 GM/30 ML CUP PO SCH ×2 (10:24→20:40)
[2018-01-12] MEDS: POLYETHYLENE GLYCOL 17 GM PKG PO SCH ×2 (10:24→20:39)
[2018-01-12] MEDS: FUROSEMIDE 40 MG/4 ML VIAL IV PUSH SCH ×3 (10:25→20:41)
[2018-01-12] MEDS: DOCUSATE SODIUM 50 MG/SENNA 8.6 MG TAB PO SCH ×2 (10:25→20:40)
[2018-01-12] MEDS: POTASSIUM CHLOR 40 MEQ PREMIX 100 ML IV PRN ×2 (12:06→14:52)
--- NOTE | 2018-01-12 14:37 | HHI.GIFU ---
Subjective Remarks Pt resting in bed, intubated. family at bedside. + BM after neostigmine. (Deyanira Laboy) Objective Vitals I&O Vital Signs Date Time Temp Pulse Resp B/P (MAP) Pulse Ox O2 Delivery O2 Flow Rate FiO2 01/12/18 12:00 45 01/12/18 12:00 98.3 86 22 155/74 (101) 96 01/12/18 12:00 86 01/12/18 11:00 45 01/12/18 11:00 94 45 01/12/18 10:00 81 01/12/18 08:59 96 35 01/12/18 08:00 35 01/12/18 08:00 98.4 76 16 141/69 (93) 94 01/12/18 08:00 76 01/12/18 06:00 72 01/12/18 04:12 96 35 01/12/18 04:00 35 01/12/18 04:00 66 01/12/18 04:00 98.4 66 16 144/78 (100) 100 01/12/18 02:00 66 01/12/18 00:00 98.1 72 14 136/65 (88) 92 01/12/18 00:00 72 01/12/18 00:00 35 01/11/18 23:35 95 35 01/11/18 22:00 66 01/11/18 21:03 94 35 01/11/18 20:00 35 01/11/18 20:00 66 01/11/18 20:00 98.4 66 17 108/58 (75) 90 01/11/18 18:09 99 35 01/11/18 18:00 60 01/11/18 16:00 98.2 58 14 106/63 (77) 100 01/11/18 16:00 35 01/11/18 16:00 56 I/O 01/11/18 01/11/18 01/11/18 01/12/18 01/12/18 01/12/18 06:59 14:59 22:59 06:59 14:59 22:59 Intake Total 2650 ml 450 ml 548 ml 5150 ml Output Total 825 ml 2065 ml 4940 ml Balance 1825 ml 450 ml -1517 ml 210 ml IV Total 2350 ml 450 ml 548 ml 1060 ml Tube Feeding 4000 ml Tube Irrigant 300 ml 90 ml Output Urine Total 775 ml 1975 ml 4000 ml Stool Total 900 ml Gastric Drainage Total 50 ml Drainage Total 50 ml 40 ml 40 ml # Bowel Movements 0 0 2 Laboratory Laboratory Tests Test 01/12/18 05:44 White Blood Count 12.5 Red Blood Count 2.72 Hemoglobin 8.5 Hematocrit 24.2 Mean Corpuscular Volume 88.9 Mean Corpuscular Hemoglobin 31.3 Mean Corpuscular Hemoglobin Concent 35.3 Red Cell Distribution Width 14.6 Platelet Count 435 Mean Platelet Volume 7.6 Neutrophils (%) (Auto) 87.3 Lymphocytes (%) (Auto) 7.3 Monocytes (%) (Auto) 4.5 Eosinophils (%) (Auto) 0.3 Basophils (%) (Auto) 0.6 Neutrophils # (Auto) 10.9 Lymphocytes # (Auto) 0.9 Monocytes # (Auto) 0.6 Eosinophils # (Auto) 0.0 Basophils # (Auto) 0.1 CBC Comment AUTO DIFF Differential Total Cells Counted 100 Neutrophils % (Manual) 82 Band Neutrophils % 12 Lymphocytes % 1 Monocytes % 1 Eosinophils % 2 Neutrophils # (Manual) 12.0 Metamyelocytes 2 Differential Comment FINAL DIFF MANUAL Platelet Estimate NORMAL Platelet Morphology Comment NORMAL Blood Urea Nitrogen 20 Creatinine 0.56 Random Glucose 93 Total Protein 5.3 Albumin 1.2 Calcium Level 6.6 Alkaline Phosphatase 124 Aspartate Amino Transf (AST/SGOT) 28 Alanine Aminotransferase (ALT/SGPT) 23 Total Bilirubin 0.5 Sodium Level 145 Potassium Level 3.0 Chloride Level 110 Carbon Dioxide Level 26.9 Anion Gap 8 Estimat Glomerular Filtration Rate 145 Protein Corrected Calcium 7.5 Date/Time Source Procedure Growth Status 01/05/18 04:00 Blood Peripheral Aerobic Blood Culture - Final NO GROWTH IN 5 DAYS Complete 01/05/18 04:00 Blood Peripheral Anaerobic Blood Culture - Final NO GROWTH IN 5 DAYS Complete 01/08/18 22:22 Sputum Expectorated Sputum Gram Stain - Final Complete 01/08/18 22:22 Sputum Expectorated Sputum Sputum Culture - Final HEAVY GROWTH NORMAL RESPIRATORY JAIME Complete 01/02/18 23:35 Urine Clean Catch Urine Culture - Final Escherichia Coli Complete 01/07/18 22:50 Abscess Back Gram Stain - Final Complete 01/07/18 22:50 Wound Culture - Final Escherichia Coli Complete Imaging Last Impressions Abdomen X-Ray 01/12/18 0600 Signed Impressions: Service Date/Time: Friday, January 12, 2018 04:57 - CONCLUSION: Mild gaseous distention possibly ileus. Hussein Fontaine MD Thoracic Spine X-Ray 01/08/18 Signed Impressions: Service Date/Time: Sunday, January 07, 2018 21:17 - CONCLUSION: Intraoperative spot images of the thoracic spine for localization purposes. Marcial Redmond MD Lumbar Spine X-Ray 01/08/18 Signed Impressions: Service Date/Time: Sunday, January 07, 2018 21:17 - CONCLUSION: Single intraoperative spot image for localization purposes. Marcial Redmond MD Chest X-Ray 01/08/18 Signed Impressions: Service Date/Time: Monday, January 08, 2018 19:43 - CONCLUSION: Left lower lobe atelectasis or consolidation. Harley Ritter MD Thoracic Spine MRI 01/06/18 Signed Impressions: Service Date/Time: January 14:23 - CONCLUSION: 1. Multilevel cord compression is due predominantly to multiple disc protrusions. Significant cord compression is present at least 6 levels. There is also cord compression posteriorly at the T10 level due to a fluid collection in the midline which measures 6 mm in AP dimension. 2. There is also focal subcutaneous right parasagittal fluid collection at T10 and T11 which does not demonstrate peripheral contrast enhancement. An abscess is suspected. Jagjit Wilkinson MD Chest CT 01/06/18 Signed Impressions: Service Date/Time: January 18:51 - CONCLUSION: 1. No abscess identified outside of the thoracic spinal canal. Small bilateral pleural effusions. NG coiled in the stomach. Frederick Rizzo MD Cervical Spine MRI 01/06/18 Signed Impressions: Service Date/Time: January 14:23 - CONCLUSION: 1. Severe degenerative changes with severe spinal stenosis at C2-3, C3-4, C4-5 and C5-6. There is moderate spinal stenosis at C6-7 and C7-T1. Overall assessment of the cord is limited due to motion artifact. I do not definitively see edema within the cord however there is significant flattening of the cord at multiple levels. 2. No significant abnormal contrast enhancement identified. Leonardo Sorenson MD Brain MRI 4/5/18 0000 Signed Impressions: Service Date/Time: January 14:23 - CONCLUSION: 1. Negative MRI of the brain with and without contrast. Jagjit Wilkinson MD Abdomen/Pelvis CT 01/06/18 0000 Signed Impressions: Service Date/Time: January 18:51 - CONCLUSION: 1. Multiple laminectomy defects in the lumbar spine with some locules of air both within the canal and within the L2 vertebral body which could be related to infection. Cannot exclude abscess formation within the canal. 2. 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 3. Diffuse ileus. 4. Small effusions and mild anasarca. 5. Reyna catheter in decompressed bladder. NG coiled in stomach. Frederick Rizzo MD Lumbar Spine MRI 01/05/18 0000 Signed Impressions: Service Date/Time: Friday, January 05, 2018 14:27 - CONCLUSION: 1. Extensive postsurgical changes with apparent left decompressive laminectomy leftward from L1 to through L4-5. 2. There is a well-circumscribed 1.4 cm cystic structure midline just posterior to the thecal sac at L4-5 which was not clearly present previously. May represent a small seroma which could result in some degree of central spinal stenosis despite the left laminectomy. 3. In addition, severe narrowing of the right L4-5 neural foramen with almost certain compromise of the right L4 nerve root. 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 no BM in 4 d and last BM scant. On pain meds. KUB 4/4 mildly prominent loops small and large bowel, suggestive ileus. d/w attending - anemia - likely multifactorial HH stable - elevated LFTs - unclear etiology...DILI vs sepsis vs other etiology. hep panel neg. - leukocytosis - poss epidural abscess, bacteremia, ID following - urosepsis, spinal cord compression s/p decompression, VALENCIA, thrombocytopenia, - per attending. ID, urology following (01/07) Change in clinical condition overnight. Respiratory distress and bilateral lower extremity weakness with progressive weakness of upper extremities. Pt was intubated and taken to OR for C2-C6 decompressive laminectomy and T2-T6 decompressive laminectomy. Pt remains on sedation and mechanically ventilated. Per RN pt had no response to Relistor. NG was placed yesterday, clamped most of the night for surgery, currently to LIWS with 50 mL of output. Abdomen continues to be distended but seems more soft today. No BMs. Bowel sounds active. Possible neurogenic component to ileus. KUB (01/07) Diffuse gas filled distention of colon and small bowel again likely representing ileus. No significant interval change. NG in place. Significant drop in H/H last night down to 6.6/19, currently 8.6/24.2 Thrombocytopenia noted- plts 97. 2 U plts transfused last night Elevated LFTs- AST and ALT WNL. Alk phos trending down. T bili-2.6. CT abdomen and pelvis W IV contrast (01/06) --> Diffuse ileus. Small effusions and mild anasarca. NG coiled in stomach. 01/08/18 decrease in colonic air, Pattern likely ileus. 01/09/18, Still no BM, 1 week., Ileus slow resolution. But Abd. taut, less distention,. 01/10/18 no BM. KUB shows little change gaseous distention. on exam distended, semifirm. 01/11/18 min change abd exam. BS + and more active in lower quadrants. NO BM. d/w CCM, ileus likely d/t neurogenic component they will give neostigmine today 01/12/18 + BM s/p neostigmine. BS significantly more active today. KUB mild ileus PLAN - consider starting trickle feed - will need aggressive bowel regimen - Monitor labs - Supportive care Pt has been seen and examined by myself and Dr. Bhardwaj and this note is written on his behalf (Deyanira Laboy) Plan Patient seems to be a little bit better, he had multiple bowel movements with GoLYTELY and neostigmine, abdomen less distended, continue bowel regimen as needed, we will follow-up also as needed (Fernando Bhardwaj MD) Deyanira Laboy Jan 12, 2018 14:37 Fernando Bhardwaj MD Jan 12, 2018 15:02
[2018-01-12] MEDS: ACETAMINOPHEN 325 MG TAB PO PRN (16:29)
[2018-01-12 17:18] LABS: BICARBONATE 28.9 MEQ/L (21.0-32.0); CALCIUM 7.2 MG/DL (8.5-10.1); CREATININE 0.7 MG/DL (0.60-1.30); MAGNESIUM 2.2 MG/DL (1.5-2.5)
[2018-01-12 17:32] LABS: TOTAL PROTEIN 6.7 GM/DL (6.4-8.2)
[2018-01-12 17:34] LABS: CALCIUM-PROTEIN CORRECTED 7.4 MG/DL (8.5-10.1)
[2018-01-12] MEDS: TAMSULOSIN HCL 0.4 MG CAP PO SCH (20:40)
[2018-01-13] VITALS (18 sets, daily range): BP systolic 87–163; BP diastolic 48–95; PULSE 69–88; RESP 14–20; TEMP 98.8–99.4; O2SAT 96–100
[2018-01-13] MEDS: POTASSIUM PHOSPHATE/SODIUM PHOSPHATE 250 MG TAB PO SCH ×4 (01:05→18:32)
[2018-01-13] MEDS: POTASSIUM CHLOR 40 MEQ PREMIX 100 ML IV PRN ×5 (01:06→16:53)
[2018-01-13] MEDS: FUROSEMIDE 40 MG/4 ML VIAL IV PUSH SCH ×2 (02:14→09:00)
[2018-01-13] MEDS: oxyCODONE HCL ORAL CONC 5 MG/0.25 ML SYRINGE PO SCH ×6 (02:23→21:28)
[2018-01-13] MEDS: KETAMINE INJ 500 MG in SODIUM CHLORID 0.9% 500 ML INJ 500 ML IV SCH (03:07)
[2018-01-13] MEDS: HYDROCORTISONE SOD SUCCINATE 100 MG VIAL IV PUSH SCH ×2 (03:08→12:05)
[2018-01-13] MEDS: cefTAZidime INJ 2,000 MG in SODIUM CHLORIDE 0.9% INJ 100 ML IV SCH ×3 (05:21→21:27)
[2018-01-13] MEDS: METOCLOPRAMIDE HCL 10 MG/2 ML VIAL IM SCH ×3 (05:22→22:05)
[2018-01-13] MEDS: ARTIFICIAL TEARS OPTH SOLN 15 ML BTL EACH EYE SCH ×3 (05:24→21:24)
[2018-01-13] MEDS ORDERED: ALBUMIN 25% INJ 100 ML IV ONE ×2 (07:45→17:00)
[2018-01-13 08:24] LABS: HEMATOCRIT 22.7 % (39.0-51.0); HEMOGLOBIN 7.8 GM/DL (13.0-17.0); MEAN CORPUSCULAR HEMOGLOBIN 30.5 PG (27.0-34.0); MEAN CORPUSCULAR HGB CONC 34.2 % (32.0-36.0); MEAN PLATELET VOLUME 7.7 FL (7.0-11.0); PLATELET COUNT 398 TH/MM3 (150-450); RED BLOOD COUNT 2.55 MIL/MM3 (4.50-5.90); RED CELL DISTRIBUTION WIDTH 14.5 % (11.6-17.2); WHITE BLOOD COUNT 11.8 TH/MM3 (4.0-11.0)
[2018-01-13 08:50] LABS: BICARBONATE 31.1 MEQ/L (21.0-32.0); CREATININE 0.84 MG/DL (0.60-1.30)
[2018-01-13] MEDS: LACTULOSE SYRUP 20 GM/30 ML CUP PO SCH ×2 (09:00→20:48)
[2018-01-13] MEDS: METHOCARBAMOL 500 MG TAB PO SCH ×4 (09:00→20:49)
[2018-01-13] MEDS: SODIUM CHLORIDE 0.9% FLUSH 10 ML FLUSH IV FLUSH SCH ×2 (09:00→21:00)
[2018-01-13] MEDS: BISACODYL 10 MG SUPP RECTAL SCH (09:00)
[2018-01-13] MEDS: POLYETHYLENE GLYCOL 17 GM PKG PO SCH ×2 (09:00→20:48)
[2018-01-13] MEDS: ATORVASTATIN 40 MG TAB PO SCH (09:01)
[2018-01-13] MEDS: GABAPENTIN 250 MG/5 ML UDC NG SCH ×3 (09:01→18:33)
[2018-01-13] MEDS: FAMOTIDINE 20 MG TAB PO SCH ×2 (09:01→20:49)
[2018-01-13] MEDS: DOCUSATE SODIUM 50 MG/SENNA 8.6 MG TAB PO SCH ×2 (09:01→20:49)
[2018-01-13 09:08] LABS: CALCIUM-PROTEIN CORRECTED 7.9 MG/DL (8.5-10.1); TOTAL PROTEIN 5.4 GM/DL (6.4-8.2)
--- NOTE | 2018-01-13 12:02 | HHI.CCPN ---
Subjective Remarks/Hospital Course 67-year-old male who underwent a prostate biopsy one week ago, on 12/27/17. On the evening of 12/29/17 he developed fever and chills, low back pain, and lower extremity numbness and paresthesias and muscle spasm. He was seen by his primary care physician and was given medication including muscle relaxant. The symptoms persisted and he returned to his primary care physician on Wednesday, and was given additional medications including Cipro. He awoke on 01/02/2018 with increased lower extremity weakness and numbness, and fell in the shower in the morning, after which he was unable to ambulate or lift his legs off the bed, and continued to experience pain in the lower back. He went to the emergency room at [facility], and was given additional medication injections. He could not lift his legs off the bed or ambulate in the emergency room, and was taken out to his car and lifted into the car and sent home again. He fell in the driveway again trying to get back into the house. He apparently did not urinate for the entire day. He has no complaint of pain which is numbness paresthesias in the upper extremities. No numbness or paresthesias over the chest or abdomen or pelvic region. The MRI of thoracic spine shows severe canal stenosis at T2-3 and T5-6 level with cord compressions, complete or near complete canal obliteration at L2 -3 L3-4 and severe multilevel canal stenosis of the C-spine. The patient is emergently taken to operating room by Dr. Chakraborty. Subjective 01/04: Extubated late afternoon yesterday without any complications. Some sensation bilateral lower extremities. Strength 4-5 bilateral upper extremities. Afebrile. Hemodynamically stable. 01/06: RECONSULT NOTE: reconsulted for respiratory distress. in brief, 67yM with recent prostate biopsy complicated by e. coli bacteremia and lumbar epidural abscess. he was stable and sent to the floor where he developed respiratory distress, fever, tachycardia, tachypnea, diaphoresis. on my exam, patient is in distress, appears toxic. repeat MRI spine demonstrates fluid collections and evidence of spinal compression in cervical, thoracic, and lumbar spinal areas concerning for rapidly ascending abscess with neurologic compromise. also, patient was weak in b/l LEs overnight and now is nearly a complete quad, with only 3/5 distal upper extremity strength left and 1/5 proximal upper extremity strength. 01/07: Persistent septic course. Unable to wean from mechanical ventilation. Infectious Disease service is guiding antimicrobial therapy. 01/08: Back from OR. Vent synchrony much improved with large tidal volume breaths. Urine output acceptable, gas exchange acceptable. 01/09: Continued septic course requiring vasopressors, diffuse general edema. 01/10: Improved control of sepsis after surgical source control. Long recovery, high risk. 01/11: shock improving. now off vasopressors. however, now functionally a quad and minimal if any movement in upper extremities. ileus persists despite aggressive therapy. GI following. pain is a significant problem, on 300 mcg/hr of fentanyl: will need a multimodal approach. 01/12: successful bowel regimen overnight with good bowel movements. however, due to 4L GoLytely, did not achieve optimal diuresis. pain better controlled and decreasing fentanyl requirement. 01/13: continues to make slow improvements. however, NIF worsening to -18 and FVC less than 500. very high risk of failure. will need tracheostomy to progress care. Objective Vital Signs Date Time Temp Pulse Resp B/P (MAP) Pulse Ox O2 Delivery O2 Flow Rate FiO2 01/13/18 10:55 97 40 01/13/18 10:00 78 01/13/18 08:00 99.2 17 87/48 (61) 01/10/18 07:00 Mechanical Ventilator Intake and Output 01/13/18 01/13/18 01/14/18 08:00 16:00 00:00 Intake Total 891 ml Output Total 5115 ml Balance -4224 ml Result Diagram: 01/13/18 0745 01/13/18 0745 Imaging Last Impressions Thoracic Spine MRI 01/03/18 0000 Signed Impressions: Service Date/Time: Wednesday, January 03, 2018 00:38 - CONCLUSION: Multilevel disc abnormalities. Severe canal stenosis at T2-3 and T5-6 with cord compression and mild signal changes in the cord at T2-3 and moderate signal changes within the cord at T5-6. Less severe changes at L2 additional levels as described. Harley Herrera MD Lumbar Spine MRI 01/03/18 0000 Signed Impressions: Service Date/Time: Wednesday, January 03, 2018 00:38 - CONCLUSION: Complete or near complete canal obliteration at L2-3, L3-4 and L4-5 with less severe compromise at L1-2 and T12-L1. Harley Herrera MD Cervical Spine MRI 01/03/18 0000 Signed Impressions: Service Date/Time: Wednesday, January 03, 2018 00:38 - CONCLUSION: Severe multilevel canal stenosis. Findings appear to be most critical at C4-5 and C5-6 where AP canal dimension is reduced to 4-5 mm, however also quite severe at C2-3 and C3-4. Harley Herrera MD Chest X-Ray 01/02/18 2302 Signed Impressions: Service Date/Time: Tuesday, January 02, 2018 23:11 - CONCLUSION: Mild basilar atelectasis or scarring. Harley Herrera MD Procedures L1 through L5 decompressive laminectomy. Objective Remarks GENERAL: 67-year-old male, intubated. SKIN: Warm. HEAD: Normocephalic. EYES: No scleral icterus. No injection or drainage. NECK: Supple, trachea midline. Orally intubated. c-collar in place. CARDIOVASCULAR: Tachycardic rate, regular rhythm. sinus. No JVD. RESPIRATORY: Equal chest rise. clear breath sounds. mechanically ventilated. GASTROINTESTINAL: Abdomen soft, mildly distended. nontender. no guarding. MUSCULOSKELETAL: Diffuse edema, well perfused limbs. NEURO EXAM: No movement of feet to stimulation. Wiggles right fingers. no proximal motor in upper extremities. RASS -2. A/P Assessment and Plan Assessment: 67-year-old male now postop day 6 status post lumbar laminectomy and decompression for epidural abscess who presents now with rapidly progressive spinal abscess with rapidly worsening myelopathy and neurologic function. Now s/p decompression. shock resolved. Ileus may be multifactorial from shock, but large component likely neurogenic. continue aggressive bowel regimen. enteral nutrition. trach today. Neuro/Psych: Postop day #9 Bilateral L1-2, L2-3, L3 4, L4 5 decompressive semi-laminectomy, medial facetectomy for spinal canal decompression. Depression/anxiety Ascending myelopathy Spinal abscess C-spine revealed cord compression C2 through C4 and C4 through C6. T-spine 2-3/ 5 6 and lumbar spine T throughout L2 with essentially ablation of the cord from L2 through L5. Status post emergent surgery per Dr. Chakraborty / Acetaminophen 650 mg p.o. every 6 hours as needed pain 1-5/fever ketamine drip at 0.25 mg/kg/hr x 24h, then off. gabapentin 600 mg TID. wean oxycodone to 15mg po q4h scheduled. Morphine sulfate 2 mg IV every 8 as needed pain 6 or 10 Neurochecks CV: Dyslipidemia Severe sepsis septic shock- resolved. saline lock ivf. off vasopressors good diuresis. hold further diuresis today. 25% albumin x1. Currently on atorvastatin 40 mg p.o. daily. Hospital substitution for rosuvastatin 20 mg p.o. daily continue hydrocortisone wean. Resp: Acute hypoxic hypercarbic respiratory failure- persistent. Vent bundle Nebs Wean FiO2 for goal SPO2 greater than 90% Gas exchange acceptable. daily sbt's GI: Neurogenic ileus- resolving. Acute protein calorie malnutrition- moderate tube feeds. senna/colace, lactulose, miralax, dulcolax supp daily. prn mag citrate if no BM daily. Likely ileus is multifactorial including severe sepsis and postoperative pain, likely compounded by myelopathy and neurogenic component to his ileus Famotidine for GI prophylaxis GI consulted send prealbumin. trend weekly. : BPH Maintain Reyna catheter per urology. will discuss with urology, but would prefer to start serial q4h straight I/O cath. Currently on tamsulosin 0.4 mg p.o. daily Recent prostate biopsy. Endo: Sliding scale insulin Accu-Cheks to maintain euglycemia/low regimen Renal: Acute kidney injury- resolved Avoid nephrotoxic drugs Monitor urine output Accurate I's and O's Heme: Thrombocytopenia likely secondary to sepsis- resolved. Anemia secondary to acute blood loss Haptoglobin high. LDH normal. Peripheral smear no signs of schistocytes total bilirubin normal. Status post 2 pack platelets /. Followed by hematology no indication for transfusion today. continue to monitor daily. ID: E. coli bacteremia E. coli spinal abscess ID consulted Broad-spectrum metabolic coverage Emergent decompression + washout FEN Hypokalemia Replace electrolytes as clinically indicated ICU electrolyte protocol MSK: Osteoporosis Holding meloxicam 7.5 mg p.o. twice daily. PT/OT evaluate and treat Access -01/06 left subclavian 9 Brazilian introducer sheath: keep today while needing access. may be good PICC line candidate. 4/5 left radial arterial line: keep today while weaning ventilation. Reyna Prophylaxis -GI -famotidine -DVT -SCD/start SQH. Overall impression: Critically ill with severe sepsis. Prognosis poor. Esau Feldman MD Jan 13, 2018 12:02
[2018-01-13] MEDS: HEPARIN SODIUM - SQ 10,000 UNITS/ML VIAL SQ SCH ×2 (14:00→21:29)
[2018-01-13] MEDS ORDERED: ROCURONIUM INJ 50 MG/5 ML VIAL IV ONE (17:00)
[2018-01-13] MEDS ORDERED: MIDAZOLAM HCL 2 MG/2 ML VIAL IV PUSH ONE (17:00)
[2018-01-13] MEDS ORDERED: fentaNYL CITRATE 250 MCG/5 ML AMP IV PUSH ONE (17:00)
--- NOTE | 2018-01-13 17:39 | HHI.IDPN ---
Subjective Subjective Remarks Mr. Reeves is a 67 y/o CM with history of BPH who underwent a prostate biopsy one week ago, on 12/27/17. On the evening of 12/29/17 he developed fever and chills, low back pain, and lower extremity numbness and paresthesias and muscle spasm. He was seen by his primary care physician and was given medication including muscle relaxant. The symptoms persisted and he returned to his primary care physician on 01/01/18 and was given additional medications including Cipro and medrol dose pack. On 01/02/2018 patient woke up with increased lower extremity weakness and numbness, and fell in the shower in the morning, after which he was unable to ambulate or lift his legs off the bed , and continued to experience pain in the lower back. He went to the emergency room at [facility], and was given additional medication injections. He could not lift his legs off the bed or ambulate in the emergency room, and was taken out to his car and lifted into the car and sent home again. He fell in the driveway again trying to get back into the house. He apparently did not urinate for the entire day. He has no complaint of pain which is numbness paresthesias in the upper extremities. Reportedly on admission there was no numbness or paresthesias over the chest or abdomen or pelvic region. The MRI of thoracic spine shows severe canal stenosis at T2-3 and T5-6 level with cord compressions, complete or near complete canal obliteration at L2-3 L3- 4 and severe multilevel canal stenosis of the C-spine. Entire spine including C spine shows areas of stenosis. Upon my discussion with patient had to be emergently taken to the OR for decompression. Intraop cultures were taken and no hardware placed at present time but it appears that patient will need more surgeries. The MRIs done were non contrast due to Acute renal failure on admission and cannot be repeated. Per dw plan is to treat as epidural abscess stone since patient was treated for few days with antibiotics prior to arrival and also due to patient needing hardware placement which can be seeded. Previously, Intubated, being weaned off sedation, UO is good peck in place. Not on any pressors. There is a plan wean and extubate. ID consulted for evaluation and Management of GN madonna bacteremia (E.coli CTX M negative) and possible epidural abscess. Patient underwent procedure C2-C6 decompressive laminectomy, procedure to T2-T6 decompressive laminectomy as well as lumbar. (Separate incisions) by Dr. Chakraborty Notes reviewed Has evidence of lumbar and thoracic epidural abscess. Smallwood J collar in place. Temps ok Not on pressors. On the vent Now with liquid stool but this is s/p neostigmine and relistor and stool regimen. Has some movement of UE, none in LE Cultures reviewed Antibiotics Current Medications Medications (Trade) Dose Ordered Sig/Kaveh Route Start Time Stop Time Status Last Admin (Robaxin) 500 mg QID PO 01/03/18 09:00 01/13/18 12:04 (Flomax) 0.4 mg HS PO 01/03/18 21:00 01/12/18 20:40 (Lipitor) 40 mg DAILY PO 01/03/18 09:00 01/13/18 09:01 (NS Flush) 2 ml UNSCH PRN IV FLUSH 01/03/18 05:00 (NS Flush) 2 ml BID IV FLUSH 01/03/18 09:00 01/13/18 09:00 (Tylenol) 650 mg Q6H PRN PO 01/03/18 05:00 01/12/18 16:29 (Zofran Inj) 4 mg Q6H PRN IV PUSH 01/03/18 05:00 01/05/18 15:50 (Roxana-Colace) 1 tab BID PO 01/03/18 09:00 01/13/18 09:01 (Tears Naturale Opth Soln) 1 drop Q8HR EACH EYE 01/03/18 14:00 01/13/18 14:00 (Albuterol Neb) 2.5 mg Q2HR NEB PRN NEB 01/03/18 10:00 01/09/18 11:30 (Pepcid) 20 mg BID PO 01/04/18 21:00 01/13/18 09:01 (K-Phos Neutral) 250 mg Q6HR PO 01/05/18 18:00 01/13/18 12:04 (Morphine Inj) 2 mg Q4H PRN IV PUSH 01/05/18 15:45 01/08/18 03:42 Ceftazidime 2000 mg/Sodium Chloride 100 ml @ 200 mls/hr Q8H IV 01/06/18 14:00 01/13/18 13:59 (Reglan Inj) 10 mg Q8HR IM 01/06/18 22:00 01/13/18 13:58 (Dulcolax Supp) 10 mg DAILY RECTAL 01/09/18 16:15 01/11/18 08:07 Ketamine HCl 500 mg/Sodium Chloride 510 ml @ 0 mls/hr Q0M IV 01/11/18 12:00 01/13/18 03:07 (SoluCORTEF INJ) 25 mg Taper Q12H IV PUSH 01/11/18 12:00 01/15/18 11:59 01/13/18 12:05 (Neurontin Liq) 600 mg TID NG 01/11/18 13:00 01/13/18 12:05 Potassium Chloride 100 ml @ 50 mls/hr Q2H PRN IV 01/12/18 08:30 01/13/18 16:53 Potassium Chloride 100 ml @ 50 mls/hr Q2H PRN IV 01/12/18 08:30 (K-Lyte Cl Eff) 50 meq UNSCH PRN PO 01/12/18 08:30 Potassium Chloride 100 ml @ 25 mls/hr UNSCH PRN IV 01/12/18 08:30 01/13/18 03:08 Potassium Chloride 100 ml @ 50 mls/hr Q2H PRN IV 01/12/18 08:30 Magnesium Sulfate 4 gm/Sodium Chloride 100 ml @ 50 mls/hr UNSCH PRN IV 01/12/18 08:30 (Mag-Ox) 800 mg UNSCH PRN PO 01/12/18 08:30 Magnesium Sulfate 2 gm/Sodium Chloride 100 ml @ 50 mls/hr UNSCH PRN IV 01/12/18 08:30 (K-Phos) 2,000 mg Q4H PRN PO 01/12/18 08:30 Sodium Phosphate 30 mmol/Sodium Chloride 250 ml @ 42 mls/hr UNSCH PRN IV 01/12/18 08:30 (K-Phos) 2,000 mg UNSCH PRN PO/TUBE 01/12/18 08:30 Potassium Phosphate 30 mmol/ Sodium Chloride 260 ml @ 42 mls/hr UNSCH PRN IV 01/12/18 08:30 (Miralax) 17 gm BID PO 4/11/18 09:00 01/13/18 09:00 (Lactulose Liq) 30 ml BID PO 01/12/18 09:00 01/13/18 09:00 (Roxicodone Intensol Liq) 15 mg Q4H PO 01/13/18 14:00 01/13/18 13:59 Albumin Human 100 ml @ 60 mls/hr ONCE ONCE IV 01/13/18 17:00 01/13/18 18:39 (Heparin Inj) 5,000 units Q8HR SQ 01/13/18 14:00 Lines Line sites with no e.o infection - LSC Past Medical History Depression BPH Hypothyroidism Past Surgical History Prostate biopsy, Tonsillectomy, history of kidney surgery. Prostate surgery Allergies: Coded Allergies: No Known Allergies (Unverified , 01/02/18) Objective . Vital Signs Date Time Temp Pulse Resp B/P (MAP) Pulse Ox O2 Delivery O2 Flow Rate FiO2 01/13/18 16:00 98.8 84 20 163/74 (103) 99 01/13/18 16:00 40 01/13/18 16:00 77 01/13/18 14:00 77 01/13/18 12:00 98.8 80 17 117/59 (78) 99 01/13/18 12:00 40 01/13/18 12:00 80 01/13/18 10:55 97 40 01/13/18 10:00 78 01/13/18 08:09 97 40 01/13/18 08:09 40 01/13/18 08:00 40 01/13/18 08:00 99.2 73 17 87/48 (61) 97 01/13/18 08:00 73 01/13/18 06:00 76 01/13/18 04:58 99.4 81 14 133/61 (85) 97 01/13/18 04:15 97 40 01/13/18 04:00 88 01/13/18 04:00 40 01/13/18 02:00 72 01/13/18 00:00 99.4 72 14 109/51 (70) 96 01/13/18 00:00 69 01/13/18 00:00 40 01/12/18 23:54 96 40 01/12/18 22:00 68 01/12/18 20:00 99.4 67 14 95/50 (65) 97 01/12/18 20:00 40 01/12/18 20:00 75 01/12/18 19:34 96 40 01/12/18 18:15 40 01/12/18 18:00 83 . Laboratory Tests Test 01/12/18 05:44 01/13/18 07:45 White Blood Count 12.5 TH/MM3 11.8 TH/MM3 Red Blood Count 2.72 MIL/MM3 2.55 MIL/MM3 Hemoglobin 8.5 GM/DL 7.8 GM/DL Hematocrit 24.2 % 22.7 % Mean Corpuscular Volume 88.9 FL 89.0 FL Mean Corpuscular Hemoglobin 31.3 PG 30.5 PG Mean Corpuscular Hemoglobin Concent 35.3 % 34.2 % Red Cell Distribution Width 14.6 % 14.5 % Platelet Count 435 TH/MM3 398 TH/MM3 Mean Platelet Volume 7.6 FL 7.7 FL Neutrophils (%) (Auto) 87.3 % Lymphocytes (%) (Auto) 7.3 % Monocytes (%) (Auto) 4.5 % Eosinophils (%) (Auto) 0.3 % Basophils (%) (Auto) 0.6 % Neutrophils # (Auto) 10.9 TH/MM3 Lymphocytes # (Auto) 0.9 TH/MM3 Monocytes # (Auto) 0.6 TH/MM3 Eosinophils # (Auto) 0.0 TH/MM3 Basophils # (Auto) 0.1 TH/MM3 CBC Comment AUTO DIFF Differential Total Cells Counted 100 Neutrophils % (Manual) 82 % Band Neutrophils % 12 % Lymphocytes % 1 % Monocytes % 1 % Eosinophils % 2 % Neutrophils # (Manual) 12.0 TH/MM3 Metamyelocytes 2 % Differential Comment FINAL DIFF MANUAL Platelet Estimate NORMAL Platelet Morphology Comment NORMAL Laboratory Tests Test 01/12/18 05:44 01/12/18 16:40 01/12/18 22:50 01/13/18 07:45 Blood Urea Nitrogen 20 MG/DL 17 MG/DL 20 MG/DL Creatinine 0.56 MG/DL 0.70 MG/DL 0.84 MG/DL Random Glucose 93 MG/DL 115 MG/DL 185 MG/DL Total Protein 5.3 GM/DL 6.7 GM/DL 5.4 GM/DL Albumin 1.2 GM/DL Calcium Level 6.6 MG/DL 7.2 MG/DL 7.0 MG/DL Alkaline Phosphatase 124 U/L Aspartate Amino Transf (AST/SGOT) 28 U/L Alanine Aminotransferase (ALT/SGPT) 23 U/L Total Bilirubin 0.5 MG/DL Sodium Level 145 MEQ/L 143 MEQ/L 146 MEQ/L Potassium Level 3.0 MEQ/L 3.2 MEQ/L 3.0 MEQ/L 2.9 MEQ/L Chloride Level 110 MEQ/L 107 MEQ/L 109 MEQ/L Carbon Dioxide Level 26.9 MEQ/L 28.9 MEQ/L 31.1 MEQ/L Anion Gap 8 MEQ/L 7 MEQ/L 6 MEQ/L Estimat Glomerular Filtration Rate 145 ML/MIN 112 ML/MIN 91 ML/MIN Protein Corrected Calcium 7.5 MG/DL 7.4 MG/DL 7.9 MG/DL Magnesium Level 2.2 MG/DL Prealbumin 20 MG/DL Test 01/13/18 15:00 Potassium Level 3.1 MEQ/L Imaging Abdomen X-Ray 01/12/18 0600 Signed Impressions: Service Date/Time: Friday, January 12, 2018 04:57 - CONCLUSION: Mild gaseous distention possibly ileus. Hussein Fontaine MD Abdomen X-Ray 01/08/18 0600 Signed Impressions: Service Date/Time: Monday, January 08, 2018 03:53 - CONCLUSION: Decrease in colonic air filled distention. Pattern likely represents ileus. Marcial Redmond MD Thoracic Spine X-Ray 01/08/18 0000 Signed Impressions: Service Date/Time: Sunday, January 07, 2018 21:17 - CONCLUSION: Intraoperative spot images of the thoracic spine for localization purposes. Marcial Redmond MD Lumbar Spine X-Ray 01/08/18 0000 Signed Impressions: Service Date/Time: Sunday, January 07, 2018 21:17 - CONCLUSION: Single intraoperative spot image for localization purposes. Marcial Redmond MD Chest X-Ray 01/08/18 0000 Signed Impressions: Service Date/Time: Monday, January 08, 2018 19:43 - CONCLUSION: Left lower lobe atelectasis or consolidation. Harley Ritter MD Thoracic Spine MRI 01/06/18 0000 Signed Impressions: Service Date/Time: January 14:23 - CONCLUSION: 1. Multilevel cord compression is due predominantly to multiple disc protrusions. Significant cord compression is present at least 6 levels. There is also cord compression posteriorly at the T10 level due to a fluid collection in the midline which measures 6 mm in AP dimension. 2. There is also focal subcutaneous right parasagittal fluid collection at T10 and T11 which does not demonstrate peripheral contrast enhancement. An abscess is suspected. Jagjit Wilkinson MD Chest CT 01/06/18 Signed Impressions: Service Date/Time: January 18:51 - CONCLUSION: 1. No abscess identified outside of the thoracic spinal canal. Small bilateral pleural effusions. NG coiled in the stomach. Frederick Rizzo MD Cervical Spine MRI 01/06/18 Signed Impressions: Service Date/Time: January 14:23 - CONCLUSION: 1. Severe degenerative changes with severe spinal stenosis at C2-3, C3-4, C4-5 and C5-6. There is moderate spinal stenosis at C6-7 and C7-T1. Overall assessment of the cord is limited due to motion artifact. I do not definitively see edema within the cord however there is significant flattening of the cord at multiple levels. 2. No significant abnormal contrast enhancement identified. Leonardo Sorenson MD Brain MRI 01/06/18 Signed Impressions: Service Date/Time: January 14:23 - CONCLUSION: 1. Negative MRI of the brain with and without contrast. Jagjit Wilkinson MD Abdomen/Pelvis CT 01/06/18 Signed Impressions: Service Date/Time: January 18:51 - CONCLUSION: 1. Multiple laminectomy defects in the lumbar spine with some locules of air both within the canal and within the L2 vertebral body which could be related to infection. Cannot exclude abscess formation within the canal. 2. 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 3. Diffuse ileus. 4. Small effusions and mild anasarca. 5. Peck catheter in decompressed bladder. NG coiled in stomach. Frederick Rizzo MD Lumbar Spine MRI 01/05/18 Signed Impressions: Service Date/Time: Friday, January 05, 2018 14:27 - CONCLUSION: 1. Extensive postsurgical changes with apparent left decompressive laminectomy leftward from L1 to through L4-5. 2. There is a well-circumscribed 1.4 cm cystic structure midline just posterior to the thecal sac at L4-5 which was not clearly present previously. May represent a small seroma which could result in some degree of central spinal stenosis despite the left laminectomy. 3. In addition, severe narrowing of the right L4-5 neural foramen with almost certain compromise of the right L4 nerve root. Emir Bowles MD Physical Exam GENERAL: This is a well-nourished, well-developed patient, intubated, sedated. SKIN: Warm and dry. HEAD: Normocephalic. EYES: Pupils equal round. No scleral icterus. No injection or drainage. ENT: Orally intubated, no nasal discharge NECK: Trachea midline. Smallwood J collar in place. CARDIOVASCULAR: Tachycardic. RESPIRATORY: Has scattered rhonchi GASTROINTESTINAL: Abdomen non-tender, soft, slightly distended. Hypoactive bowel sounds. NG tube in place clamped. : Peck catheter draining gila colored urine. Significant scrotal edema. BACK: GUIDO drain x 4, one cervical, one thoracic and 2 lumbar - all with serosanguineous drainage. Surgical incisions healing well per nursing report. MUSCULOSKELETAL: Extremities without clubbing, cyanosis. Generalized edema +1 of extremities. Back: Surgical dressing intact is water proof. No surrounding erythema. 2JP drains in upper part of thorax/neck with sanguinous drainage. NEUROLOGICAL: Intubated, sedated. LINES: Left IJ central line in place. Assessment & Plan Remarks Severe Sepsis present on admission (leucocytosis, Tachycardia, source: bacteremia and epidural abscess. E.coli bacteremia high grade E.Coli UTI recent prostate biopsy. PNA aspiration/HCAP Epidural abscess, thoracic and lumbar, C/S E coli - S/P surgery and evacuation Recent history of prostate biopsy as risk factor for E.coli bacteremia. Incomplete Quadriparesis. Paraparesis present on admission. Recs: Continue Ceftazidime IV for E.coli Sepsis and Osteomyelitis of C,T,L spine plus epidural abscesses. Weaning may be difficult due to incomplete quad Follow cultures Follow clinically. Shanda Charles MD Jan 13, 2018 17:39
--- NOTE | 2018-01-13 17:52 | PD.PROCEDR ---
Procedure Note Procedure Diagnosis: Respiratory failure, anoxic brain injury. Operation: Therapeutic flexible fiberoptic bronchoscopy Procedure: Timeout performed, patient properly identified. Patient is orally intubated with mechanical ventilation in place and usual ICU monitoring devices attached. Through a side-port in the ventilatory circuit the bronchoscope was delivered through the indwelling orotracheal tube. The mucosa of the main trachea and major bronchi was moderately inflamed with chronic irritation. There were no ulcerations. There was copious sputum which is suctioned out of several segments. Branching anatomy appeared normal. The bronchoscope and the indwelling orotracheal tube were then withdrawn together to the level of the cricoid cartilage. This position was used to achieve visualization for the performance of the percutaneous tracheostomy dictated by a separate team under a separate note. At the end of the procedure the bronchoscope was then delivered through the new tracheostomy tube to confirm good position in the mid trachea. Lottie was easily identified well below the new tracheostomy tube. The scope was then removed inner cannula placed and the patient converted to ventilation through the new tracheostomy tube. Oxygen saturation was maintained at greater than 95% throughout the procedure. Vick Mayes MD Jan 13, 2018 17:52
--- NOTE | 2018-01-13 18:06 | PD.PROCEDR ---
Procedure Note Procedure Percutaneous Dilation Tracheostomy Tube Placement Diagnosis: Subacute respiratory failure Indications: Spinal cord injury with subacute respiratory failure Anesthesia: Versed 10 mg IV, fentanyl 250 mcg iv Neuromuscular Blockade: Rocuronium 100 mg IV Anesthesia was provided by the bedside RN Description of the Procedure: The patient was sedated and paralyzed. The patient was positioned in the supine position with a chest roll. The patient's neck was slightly extended. Landmarks were palpated and the anatomy of the anterior neck was deemed normal. A time out procedure was performed. The patient was placed on a volume control mode of ventilation, on 100% FiO2. The patient was prepped and draped sterilely. A bronchoscope was inserted into the endotracheal tube for endoscopic guidance (see separate bronchoscopy procedure note). After negative aspiration, 1% lidocaine with 1:100k epinephrine was injected subcutaneously in the midline neck using a 21g needle for local anesthesia. An approximately 2cm skin incision was made using a #15 blade. The cricoid cartilage, thyroid tissue , and tracheal rings were palpated in the midline. Under direct bronchoscopic guidance, the cuff of the endotracheal tube was deflated and the endotracheal tube was retracted to a level above the level of the skin incision. At this point, a 15g introducer needle/catheter was advanced midline under negative aspiration with saline filled syringe until bubbles were seen and the needle and catheter were visualized in the lumen of the trachea. The needle was withdrawn leaving the catheter in place. A 0.052 in diameter J-shaped guidewire was advanced through the catheter into the lumen of the trachea, under direct bronchoscopic visualization. Using a modified Seldinger technique , a 14 Fr, 4.5 cm introducer dilator was used, followed by a Blue Rhino Percutaneous Tracheostomy Dilator, and finally a 28 Fr tracheostomy loading catheter with 8.0 Cuffed Shiley tracheostomy tube. The loading catheter and guidewire were removed and the tracheostomy tube was confirmed in the lumen of the trachea with bronchoscopy, end-tidal CO2, and returning volumes on the ventilator. The tracheostomy was sewn to the skin with interrupted 2.0 Prolene sutures, and a tracheostomy tie was applied to the skin. There were no immediate complications. There was minimal EBL. A chest x-ray has been ordered. Cardiac Cath Tech: Dr. Gerber Quinteros personally performed the procedure. Esau Feldman MD Jan 13, 2018 18:06
--- NOTE | 2018-01-13 18:40 | RADRPT ---
EXAM DATE/TIME: 01/13/2018 17:47 [facility] COMPARISON: CHEST SINGLE AP, January 08, 2018, 19:43. INDICATIONS : Post tracheostomy. MEDICAL HISTORY : Benign prostatic hyperplasia, (BPH). Cord compression. SURGICAL HISTORY : Prostate biopsy. Kidney biopsy. ENCOUNTER: Subsequent ACUITY: 1 day PAIN SCORE: Non-responsive. LOCATION: Bilateral chest FINDINGS: A single AP supine portable view of the chest was obtained and demonstrates interval removal of the e ndotracheal tube and placement of a tracheostomy tube. A nasogastric tube remains in place. There are overlying surgical skin amada and a surgical drain. Overlying tubing and electrocardiogram leads a re present. The heart size remains mildly prominent and there is hazy opacity now noted in the left l augusta. The bony thorax is otherwise intact. CONCLUSION: 1. Interval removal of endotracheal tube and placement of tracheostomy tube. 2. Hazy opacity is now noted projected over the left lung. This could represent post erlying fluid. Jorge Luis Puri MD on January 13, 2018 at 18:35 Board Certified Radiologist. This report was verified electronically.
[2018-01-13] MEDS: TAMSULOSIN HCL 0.4 MG CAP PO SCH (20:48)
[2018-01-14] VITALS (15 sets, daily range): BP systolic 125–147; BP diastolic 60–78; PULSE 80–97; RESP 16–21; TEMP 98.9–100.2; O2SAT 97–100
[2018-01-14] MEDS: POTASSIUM PHOSPHATE/SODIUM PHOSPHATE 250 MG TAB PO SCH ×4 (01:01→17:25)
[2018-01-14] MEDS: HYDROCORTISONE SOD SUCCINATE 100 MG VIAL IV PUSH SCH (01:02)
[2018-01-14] MEDS: oxyCODONE HCL ORAL CONC 5 MG/0.25 ML SYRINGE PO SCH ×5 (02:06→22:09)
[2018-01-14] MEDS ORDERED: PHARMACY ORDERED LAB ONE (03:45)
[2018-01-14] MEDS: ARTIFICIAL TEARS OPTH SOLN 15 ML BTL EACH EYE SCH ×3 (06:00→21:53)
[2018-01-14 06:28] LABS: HEMATOCRIT 22.4 % (39.0-51.0); HEMOGLOBIN 7.8 GM/DL (13.0-17.0); MEAN CORPUSCULAR HEMOGLOBIN 30.6 PG (27.0-34.0); MEAN CORPUSCULAR HGB CONC 34.8 % (32.0-36.0); MEAN PLATELET VOLUME 7.6 FL (7.0-11.0); PLATELET COUNT 417 TH/MM3 (150-450); RED BLOOD COUNT 2.54 MIL/MM3 (4.50-5.90); RED CELL DISTRIBUTION WIDTH 14.6 % (11.6-17.2); WHITE BLOOD COUNT 11.3 TH/MM3 (4.0-11.0)
[2018-01-14] MEDS: cefTAZidime INJ 2,000 MG in SODIUM CHLORIDE 0.9% INJ 100 ML IV SCH ×3 (06:42→21:53)
[2018-01-14] MEDS: HEPARIN SODIUM - SQ 10,000 UNITS/ML VIAL SQ SCH ×3 (06:42→22:09)
[2018-01-14] MEDS: METOCLOPRAMIDE HCL 10 MG/2 ML VIAL IM SCH (06:43)
[2018-01-14 06:52] LABS: BICARBONATE 32.5 MEQ/L (21.0-32.0); CALCIUM 7.5 MG/DL (8.5-10.1); CREATININE 0.66 MG/DL (0.60-1.30)
[2018-01-14] MEDS: POTASSIUM CHLOR 40 MEQ PREMIX 100 ML IV PRN ×2 (08:18→12:07)
[2018-01-14] MEDS: FAMOTIDINE 20 MG TAB PO SCH ×2 (08:19→20:17)
[2018-01-14] MEDS: DOCUSATE SODIUM 50 MG/SENNA 8.6 MG TAB PO SCH ×2 (08:19→20:17)
[2018-01-14] MEDS: METHOCARBAMOL 500 MG TAB PO SCH ×4 (08:19→20:17)
[2018-01-14] MEDS: LACTULOSE SYRUP 20 GM/30 ML CUP PO SCH (08:20)
[2018-01-14] MEDS: BISACODYL 10 MG SUPP RECTAL SCH (08:20)
[2018-01-14] MEDS: GABAPENTIN 250 MG/5 ML UDC NG SCH ×3 (08:20→17:25)
[2018-01-14] MEDS: POLYETHYLENE GLYCOL 17 GM PKG PO SCH (08:20)
[2018-01-14] MEDS: ATORVASTATIN 40 MG TAB PO SCH (08:20)
[2018-01-14] MEDS: SODIUM CHLORIDE 0.9% FLUSH 10 ML FLUSH IV FLUSH SCH ×2 (08:20→20:20)
--- NOTE | 2018-01-14 09:20 | HHI.NSPN ---
(Tigre Estrada) History Chief Complaint: Unable to obtain due to patient's clinical condition. (Tigre Estrada) Interval History 01/03: 67-year-old male who underwent a prostate biopsy one week ago, on . He states that on the evening of 12/29/17 on into the morning of 12/30/17, he developed fever and chills, low back pain, and lower extremity numbness and paresthesias and muscle spasm. He was seen by his primary care physician and was given medication including muscle relaxant. The symptoms persisted and he returned to his primary care physician on Wednesday , 01/01/18 and was given additional medications including Cipro. He awoke on 01/02/2018 with increased lower extremity weakness and numbness, and fell in the shower in the morning, after which he was unable to ambulate or lift his legs off the bed, and continued to experience pain in the lower back. He went to the emergency room at [facility], and was given additional medication injections. He states that he could not lift his legs off the bed or ambulate in the emergency room, and was taken out to his car and lifted into the car and sent home again. He fell in the driveway again trying to get back into the house. He apparently did not urinate for the entire day. He has no complaint of pain which is numbness paresthesias in the upper extremities. No numbness or paresthesias over the chest or abdomen or pelvic region. The patient was emergently taken to the operating room for a bilateral L1-2, L2- 3, L3 4, L4 5 decompressive semi-laminectomy, medial facetectomy for spinal canal decompression. Post-operatively the patient remained intubated and was admitted to [facility] for further care and monitoring. 01/04: When seen this afternoon the patient has been extubated. He is awake and alert and readily interacts. He does report pain to the neck and the lower back. He has no numbness, tingling or weakness to the upper extremities but does say he will have pain shooting down them if he moves wrong. He denies any pain to the lower extremities but does have numbness to both feet and about the only movement he is able to do is move his knees medially and laterally. Upon examination the patient's sensorimotor exam is improved from pre-operatively 01/05: The patient desaturated this morning and a Halicat was initiated. From the EMR Nursing reported that the patient was lethargic and difficult to arouse. His sat was in the 80s and he did have a fever of 102F. He was therefore transferred back to [facility]. A chest x-ray demonstrated a left lower lobe consolidation. His blood, urine and lumbar spine wound cultures have all come back positive for Escherichia coli. When seen this afternoon the patient was awake, alert and readily interacted. He was visiting with his significant other. His upper extremity examination was variable with some improvement and some decline. His sensation and motor strength to the lower extremities had declined. The surgical incision looked good upon examination and the GUIDO drain was removed. 01/06: This afternoon the patient is on a nonrebreather mask when seen, he is tachypneic and laboured. He says he has some low back pain, especially at night. He denies any neck pain or headache. He has worsening of his muscle strength to the upper extremities and it remains poor to the lower. 01/07: The patient was urgently intubated yesterday evening for worsening respiratory status and remains so this morning. He underwent emergent surgery for decompression of the cervical and thoracic spines. Post-operatively he returned to [facility]. He is sedated with propofol. He has vasopressin and norepinephrine infusing for blood pressure support. He is obtunded but sedated and there is no response to any stimulation. 01/08: Patient sedated with Diprivan and fentanyl drips. He was biting the tube and was also recently placed on Versed. He is not opening eyes or following commands. He remains sedated for vent synchrony. 01/09: Pt sedated with Diprivan and Fentanyl drips. He nods his head slightly to questions. Intubated a/c. RN reports all bandages are dry with only mild post op staining. 01/10: When seen the patient is lethargic. He is sedated with propofol and midazolam. He continues to be intubated and mechanically ventilated. His significant other stated that the patient was awake a few minutes ago. When he called the patient's name he opened both eyes. He did blink to command. There was no motor response to any stimulation. 01/11: This morning the patient is drowsy when seen. He continues to be sedated with propofol and midazolam. He is still intubated and mechanically ventilated. His eyes open to voice. He does not move the extremities to any stimulation even though his sedation is held. 01/12: The patient is drowsy. He is on ketamine for sedation and pain control. He remains intubated and mechanically ventilated. He opened his eyes to voice. He indicated he had no pain. He weakly gripped with the right hand to command and gave a thumbs up. His chinchilla machine operator was strong when local noxious stimulation was applied. He had no response with the other extremities to local noxious stimulation. 01/14: When seen the patient is awake. He has been trached and mechanically ventilated. Nursing does say that a CPAP trial may be done today. He nods appropriately. He denies any pain to the neck or back. Upon examination he is able to give a weak hand grasp bilaterally and has muscle contractions to the upper extremities when asked to lift them off the bed. He has no response to noxious stimulation of the lower extremities. He has numbness to the left lower but says the right lower and both upper extremities feel normal. (Tigre Estrada) Exam Results 01/12/18 01/12/18 01/13/18 01/13/18 01/14/18 01/14/18 06:00 18:00 06:00 18:00 06:00 18:00 Intake Total 5150 ml 1008 ml 991 ml 760 ml 1247 ml Output Total 4940 ml 6515 ml 5115 ml 1860 ml 1435 ml Balance 210 ml -5507 ml -4124 ml -1100 ml -188 ml IV Total 1060 ml 750 ml 710 ml 400 ml Tube Feeding 4000 ml 78 ml 251 ml 360 ml 647 ml Tube Irrigant 90 ml 180 ml 600 ml Other 30 ml Output Urine Total 4000 ml 5500 ml 3500 ml 1350 ml 1265 ml Stool Total 900 ml 1000 ml 1600 ml 500 ml 150 ml Drainage Total 40 ml 15 ml 15 ml 10 ml 20 ml # Bowel Movements 2 Vital Signs Date Time Temp Pulse Resp B/P (MAP) Pulse Ox O2 Delivery O2 Flow Rate FiO2 4/13/18 08:51 30 01/14/18 08:51 99 40 01/14/18 08:00 99.3 84 20 146/70 (95) 100 01/14/18 08:00 45 01/14/18 06:00 82 01/14/18 05:00 97 60 01/14/18 04:00 99.0 82 20 142/64 (90) 97 01/14/18 04:00 82 01/14/18 04:00 45 01/14/18 02:00 81 01/14/18 00:00 99.1 82 20 129/60 (83) 97 01/14/18 00:00 84 01/14/18 00:00 45 01/13/18 22:00 84 01/13/18 20:10 98 60 01/13/18 20:00 99.3 82 20 145/95 (112) 100 01/13/18 20:00 85 01/13/18 20:00 45 01/13/18 18:07 100 100 01/13/18 18:00 79 01/13/18 16:30 100 01/13/18 16:00 98.8 84 20 163/74 (103) 99 01/13/18 16:00 40 01/13/18 16:00 77 01/13/18 14:00 77 01/13/18 12:00 98.8 80 17 117/59 (78) 99 01/13/18 12:00 40 01/13/18 12:00 80 01/13/18 10:55 97 40 01/13/18 10:00 78 01/13/18 08:09 97 40 01/13/18 08:09 40 01/13/18 08:00 40 01/13/18 08:00 99.2 73 17 87/48 (61) 97 01/13/18 08:00 73 01/13/18 06:00 76 01/13/18 04:58 99.4 81 14 133/61 (85) 97 01/13/18 04:15 97 40 01/13/18 04:00 88 01/13/18 04:00 40 01/13/18 02:00 72 01/13/18 00:00 99.4 72 14 109/51 (70) 96 01/13/18 00:00 69 01/13/18 00:00 40 01/12/18 23:54 96 40 01/12/18 22:00 68 01/12/18 20:00 99.4 67 14 95/50 (65) 97 01/12/18 20:00 40 01/12/18 20:00 75 01/12/18 19:34 96 40 01/12/18 18:15 40 01/12/18 18:00 83 01/12/18 16:00 100.1 90 23 155/74 (101) 95 01/12/18 16:00 45 01/12/18 16:00 90 01/12/18 15:08 96 40 01/12/18 14:00 80 01/12/18 12:00 45 01/12/18 12:00 98.3 86 22 155/74 (101) 96 01/12/18 12:00 86 01/12/18 11:00 45 01/12/18 11:00 94 45 01/12/18 10:00 81 01/12/18 08:59 96 35 01/12/18 08:00 35 01/12/18 08:00 98.4 76 16 141/69 (93) 94 01/12/18 08:00 76 01/12/18 06:00 72 01/12/18 04:12 96 35 01/12/18 04:00 35 01/12/18 04:00 66 01/12/18 04:00 98.4 66 16 144/78 (100) 100 01/12/18 02:00 66 01/12/18 00:00 98.1 72 14 136/65 (88) 92 01/12/18 00:00 72 01/12/18 00:00 35 01/11/18 23:35 95 35 01/11/18 22:00 66 01/11/18 21:03 94 35 01/11/18 20:00 35 01/11/18 20:00 66 01/11/18 20:00 98.4 66 17 108/58 (75) 90 01/11/18 18:09 99 35 01/11/18 18:00 60 01/11/18 16:00 98.2 58 14 106/63 (77) 100 01/11/18 16:00 35 01/11/18 16:00 56 01/11/18 14:00 72 01/11/18 12:28 98 45 01/11/18 12:00 98.8 66 14 134/75 (94) 99 01/11/18 12:00 35 01/11/18 12:00 61 01/11/18 10:00 75 (Tigre Estrada) Physical Examination GENERAL: Awake & alert. Trached & mechanically ventilated. His skin is cool & dry. HEENT: Normocephalic, atraumatic. PERRLA 2 mm brisk, EOMI. NGT. NECK: Lodi J cervical collar in place. No JVD. Trachea midline. MUSCULOSKELETAL: Weak chinchilla machine operator with both hands & evident muscle contractions to upper extremities to command but no lower extremity response w/noxious stimulation. No evident clubbing or deformity. Extremities edematous. NEUROLOGICAL: Awake & alert. Spontaneous eye opening. Nonverbal, trached. Nodded head appropriately to questions. Patient indicates decreased sensation to LLE but RLE & BUE feel normal. Weak bilateral hand squeeze & thumbs up to command. Evident muscle contraction to both upper extremities to command. No response to the lower extremities to local noxious stimulation. (Tigre Estrada) Lab, Micro, Other Results Recent Impressions Chest X-Ray 01/13/18 0000 Signed Impressions: Service Date/Time: January 17:47 - CONCLUSION: 1. Interval removal of endotracheal tube and placement of tracheostomy tube. 2. Hazy opacity is now noted projected over the left lung. This could represent post erlying fluid. Jorge Luis Puri MD Abdomen X-Ray 01/12/18 0600 Signed Impressions: Service Date/Time: Friday, January 12, 2018 04:57 - CONCLUSION: Mild gaseous distention possibly ileus. Hussein Fontaine MD Laboratory Tests Test 01/12/18 05:44 01/12/18 16:40 01/12/18 22:50 01/13/18 07:45 White Blood Count 12.5 TH/MM3 11.8 TH/MM3 Red Blood Count 2.72 MIL/MM3 2.55 MIL/MM3 Hemoglobin 8.5 GM/DL 7.8 GM/DL Hematocrit 24.2 % 22.7 % Mean Corpuscular Volume 88.9 FL 89.0 FL Mean Corpuscular Hemoglobin 31.3 PG 30.5 PG Mean Corpuscular Hemoglobin Concent 35.3 % 34.2 % Red Cell Distribution Width 14.6 % 14.5 % Platelet Count 435 TH/MM3 398 TH/MM3 Mean Platelet Volume 7.6 FL 7.7 FL Neutrophils (%) (Auto) 87.3 % Lymphocytes (%) (Auto) 7.3 % Monocytes (%) (Auto) 4.5 % Eosinophils (%) (Auto) 0.3 % Basophils (%) (Auto) 0.6 % Neutrophils # (Auto) 10.9 TH/MM3 Lymphocytes # (Auto) 0.9 TH/MM3 Monocytes # (Auto) 0.6 TH/MM3 Eosinophils # (Auto) 0.0 TH/MM3 Basophils # (Auto) 0.1 TH/MM3 CBC Comment AUTO DIFF Differential Total Cells Counted 100 Neutrophils % (Manual) 82 % Band Neutrophils % 12 % Lymphocytes % 1 % Monocytes % 1 % Eosinophils % 2 % Neutrophils # (Manual) 12.0 TH/MM3 Metamyelocytes 2 % Differential Comment FINAL DIFF MANUAL Platelet Estimate NORMAL Platelet Morphology Comment NORMAL Blood Urea Nitrogen 20 MG/DL 17 MG/DL 20 MG/DL Creatinine 0.56 MG/DL 0.70 MG/DL 0.84 MG/DL Random Glucose 93 MG/DL 115 MG/DL 185 MG/DL Total Protein 5.3 GM/DL 6.7 GM/DL 5.4 GM/DL Albumin 1.2 GM/DL Calcium Level 6.6 MG/DL 7.2 MG/DL 7.0 MG/DL Alkaline Phosphatase 124 U/L Aspartate Amino Transf (AST/SGOT) 28 U/L Alanine Aminotransferase (ALT/SGPT) 23 U/L Total Bilirubin 0.5 MG/DL Sodium Level 145 MEQ/L 143 MEQ/L 146 MEQ/L Potassium Level 3.0 MEQ/L 3.2 MEQ/L 3.0 MEQ/L 2.9 MEQ/L Chloride Level 110 MEQ/L 107 MEQ/L 109 MEQ/L Carbon Dioxide Level 26.9 MEQ/L 28.9 MEQ/L 31.1 MEQ/L Anion Gap 8 MEQ/L 7 MEQ/L 6 MEQ/L Estimat Glomerular Filtration Rate 145 ML/MIN 112 ML/MIN 91 ML/MIN Protein Corrected Calcium 7.5 MG/DL 7.4 MG/DL 7.9 MG/DL Magnesium Level 2.2 MG/DL Prealbumin 20 MG/DL Test 01/13/18 15:00 01/14/18 06:00 Potassium Level 3.1 MEQ/L 3.1 MEQ/L White Blood Count 11.3 TH/MM3 Red Blood Count 2.54 MIL/MM3 Hemoglobin 7.8 GM/DL Hematocrit 22.4 % Mean Corpuscular Volume 88.0 FL Mean Corpuscular Hemoglobin 30.6 PG Mean Corpuscular Hemoglobin Concent 34.8 % Red Cell Distribution Width 14.6 % Platelet Count 417 TH/MM3 Mean Platelet Volume 7.6 FL Blood Urea Nitrogen 18 MG/DL Creatinine 0.66 MG/DL Random Glucose 143 MG/DL Calcium Level 7.5 MG/DL Sodium Level 147 MEQ/L Chloride Level 110 MEQ/L Carbon Dioxide Level 32.5 MEQ/L Anion Gap 5 MEQ/L Estimat Glomerular Filtration Rate 120 ML/MIN (Tigre Estrada) Medical Decision Making Impression and Plan Impression: 1. Severe progressive paraplegia. Although he has significant spinal stenosis in the cervical thoracic and lumbar region, his overall presentation and exam suggests that the lumbar stenosis is the immediate cause of his severe lower extremity deficit, positive cauda equina syndrome. 2. Possible sepsis 3. Acute kidney disease 4. 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 Severe lumbar canal stenosis 2. Cauda equina syndrome 3. Cervical degenerative disease with severe stenosis and myelopathy 4. Thoracic disc disease with severe canal stenosis and myelopathy 5. Sepsis 6. Thrombocytopenia 7. Acute kidney disease Postoperative Diagnosis : (1) Cervical disc disease with myelopathy (2) Thoracic disc disease with myelopathy Postoperative Diagnosis : (1) Spinal epidural abscess (2) Thoracic disc disease with myelopathy (3) Lumbar canal stenosis 4. Postoperative lumbar epidural hematoma Respiratory insufficiency, CXR w/left lung hazy opacity suggestive of fluid. Ileus suggested by abdominal x-ray . Patient doing better. He is awake & alert. Trached & mechanically ventilated. Bilateral hand squeeze to command & gave a thumbs up, evident upper extremity muscle contraction to command. No lower extremity motor response to noxious stimulation. T max 99.3 the past 24 hrs. One episode of SBP 87 mm Hg yesterday morning. GUIDO #1 (lower back) with 15 mL & #2 (cervical) with 15 mL output the past 24 hrs as of shift change this morning. GUIDO drains #3 (lumbar) & #4 (lumbar) d/c'd 01/10. Reviewed labs for today. Improvement in leukocytosis & stable haemoglobin level. Sodium 147. Hypokalemia improved from yesterday morning. Wound culture () positive for Escherichia coli, final . POD #11 () s/p: 1. Bilateral L1-2, L2-3, L3 4, L4 5 decompressive semi-laminectomy, medial facetectomy for spinal canal decompression. POD #7 (-) s/p: Procedure number 1. C2-C6 decompressive laminectomy Procedure number 2,Via separate incision: T2-T6 decompressive laminectomy POD #6 (-07) s/p: Part 2 of planned two-part procedure. Procedure #1: 1. [id number] decompressive semi-laminectomy, evacuation thoracic epidural abscess 2. Evacuation thoracic epidural abscess. Procedure #2: Via separate incision. 1. Revision L2-3, L3 4, L4 5 decompressive semi-laminectomy 2. Evacuation lumbar epidural abscess 3. Evacuation of postoperative lumbar epidural hematoma Plan: Discussed patient w/Nursing. Primary & critical care management per Hand Funnel Co[employer]. Neuro checks. Turn patient q2h but keep the patient off of his back. Physical & Occupational Therapy eval & tx. Hold pharmacologic DVT prophylaxis. Mechanical DVT prophylaxis. Will d/c GUIDO #1 (lower back) & #2 (cervical). (Tigre Estrada) Attending Statement The exam, history, and the medical decision-making described in the above note were completed with the assistance of the mid-level provider. I reviewed and agree with the findings presented. I attest that I had a [id number] encounter with the patient on the same day, and personally performed and documented my assessment and findings in the medical record. On my examination 01/14/2018, the patient is sitting up in bed. He is quite a bit more alert today, tracking well with his eyes, smiling occasionally. He is able to moderately grasp his hands and has weak upper extremity flexion and extensors. No spontaneous movement lower extremities noted. Residual drain output decreasing. Discontinue drains Patient discussed with art tracer. (Jerry Chakrbaorty MD) Tigre Estrada Jan 14, 2018 09:20 Jerry Chakraborty MD Jan 14, 2018 20:42
[2018-01-14] MEDS: ALBUMIN 25% INJ 100 ML IV SCH ×2 (12:14→20:17)
[2018-01-14] MEDS: FUROSEMIDE 40 MG/4 ML VIAL IV PUSH SCH ×2 (12:15→20:19)
--- NOTE | 2018-01-14 12:39 | HHI.CCPN ---
Subjective Remarks/Hospital Course 67-year-old male who underwent a prostate biopsy one week ago, on 12/27/17. On the evening of 12/29/17 he developed fever and chills, low back pain, and lower extremity numbness and paresthesias and muscle spasm. He was seen by his primary care physician and was given medication including muscle relaxant. The symptoms persisted and he returned to his primary care physician on Wednesday, and was given additional medications including Cipro. He awoke on 01/02/2018 with increased lower extremity weakness and numbness, and fell in the shower in the morning, after which he was unable to ambulate or lift his legs off the bed, and continued to experience pain in the lower back. He went to the emergency room at [facility], and was given additional medication injections. He could not lift his legs off the bed or ambulate in the emergency room, and was taken out to his car and lifted into the car and sent home again. He fell in the driveway again trying to get back into the house. He apparently did not urinate for the entire day. He has no complaint of pain which is numbness paresthesias in the upper extremities. No numbness or paresthesias over the chest or abdomen or pelvic region. The MRI of thoracic spine shows severe canal stenosis at T2-3 and T5-6 level with cord compressions, complete or near complete canal obliteration at L2 -3 L3-4 and severe multilevel canal stenosis of the C-spine. The patient is emergently taken to operating room by Dr. Chkaraborty. Subjective 01/04: Extubated late afternoon yesterday without any complications. Some sensation bilateral lower extremities. Strength 4-5 bilateral upper extremities. Afebrile. Hemodynamically stable. 01/06: RECONSULT NOTE: reconsulted for respiratory distress. in brief, 67yM with recent prostate biopsy complicated by e. coli bacteremia and lumbar epidural abscess. he was stable and sent to the floor where he developed respiratory distress, fever, tachycardia, tachypnea, diaphoresis. on my exam, patient is in distress, appears toxic. repeat MRI spine demonstrates fluid collections and evidence of spinal compression in cervical, thoracic, and lumbar spinal areas concerning for rapidly ascending abscess with neurologic compromise. also, patient was weak in b/l LEs overnight and now is nearly a complete quad, with only 3/5 distal upper extremity strength left and 1/5 proximal upper extremity strength. 01/07: Persistent septic course. Unable to wean from mechanical ventilation. Infectious Disease service is guiding antimicrobial therapy. 01/08: Back from OR. Vent synchrony much improved with large tidal volume breaths. Urine output acceptable, gas exchange acceptable. 01/09: Continued septic course requiring vasopressors, diffuse general edema. 01/10: Improved control of sepsis after surgical source control. Long recovery, high risk. 01/11: shock improving. now off vasopressors. however, now functionally a quad and minimal if any movement in upper extremities. ileus persists despite aggressive therapy. GI following. pain is a significant problem, on 300 mcg/hr of fentanyl: will need a multimodal approach. 01/12: successful bowel regimen overnight with good bowel movements. however, due to 4L GoLytely, did not achieve optimal diuresis. pain better controlled and decreasing fentanyl requirement. 01/13: continues to make slow improvements. however, NIF worsening to -18 and FVC less than 500. very high risk of failure. will need tracheostomy to progress care. 01/14: s/p trach yesterday. up in stretcher chair. clinically improving. more awake. denies pain. ROS negative. Objective Vital Signs Date Time Temp Pulse Resp B/P (MAP) Pulse Ox O2 Delivery O2 Flow Rate FiO2 01/14/18 12:05 98 T-piece 40 01/14/18 08:00 99.3 84 20 146/70 (95) Intake and Output 01/14/18 01/14/18 01/15/18 08:00 16:00 00:00 Intake Total 1247 ml 200 ml Output Total 1435 ml Balance -188 ml 200 ml Result Diagram: 01/14/18 0601/14/18 06 Imaging Last Impressions Thoracic Spine MRI 01/03/18 0000 Signed Impressions: Service Date/Time: Wednesday, January 03, 2018 00:38 - CONCLUSION: Multilevel disc abnormalities. Severe canal stenosis at T2-3 and T5-6 with cord compression and mild signal changes in the cord at T2-3 and moderate signal changes within the cord at T5-6. Less severe changes at L2 additional levels as described. Harley Herrera MD Lumbar Spine MRI 01/03/18 0000 Signed Impressions: Service Date/Time: Wednesday, January 03, 2018 00:38 - CONCLUSION: Complete or near complete canal obliteration at L2-3, L3-4 and L4-5 with less severe compromise at L1-2 and T12-L1. Harley Herrera MD Cervical Spine MRI 01/03/18 0000 Signed Impressions: Service Date/Time: Wednesday, January 03, 2018 00:38 - CONCLUSION: Severe multilevel canal stenosis. Findings appear to be most critical at C4-5 and C5-6 where AP canal dimension is reduced to 4-5 mm, however also quite severe at C2-3 and C3-4. Harley Herrera MD Chest X-Ray 01/02/18 2302 Signed Impressions: Service Date/Time: Tuesday, January 02, 2018 23:11 - CONCLUSION: Mild basilar atelectasis or scarring. Harley Herrera MD Procedures L1 through L5 decompressive laminectomy. Objective Remarks GENERAL: 67-year-old male, trached. SKIN: Warm. HEAD: Normocephalic. EYES: No scleral icterus. No injection or drainage. NECK: Supple, trachea midline. recent trach in place, no evidence of bleeding. c -collar in place. CARDIOVASCULAR: normal rate, regular rhythm. sinus. No JVD. RESPIRATORY: Equal chest rise. PSV 10/5/40%. no accessory muscle use. GASTROINTESTINAL: Abdomen soft, mildly distended. nontender. no guarding. MUSCULOSKELETAL: Diffuse edema, well perfused limbs. NEURO EXAM: No movement of feet to stimulation. Wiggles right fingers. no proximal motor in upper extremities. RASS -1. A/P Assessment and Plan Assessment: 67-year-old male now postop day 7 status post lumbar laminectomy and decompression for epidural abscess who presents now with rapidly progressive spinal abscess with rapidly worsening myelopathy and neurologic function. Now s/p decompression. shock resolved. now s/p trach. needs aggressive PT/OT and rehab. will start work for weaning from mechanical ventilation. Neuro/Psych: Postop day #10 Bilateral L1-2, L2-3, L3 4, L4 5 decompressive semi-laminectomy, medial facetectomy for spinal canal decompression. Depression/anxiety Ascending myelopathy Spinal abscess C-spine revealed cord compression C2 through C4 and C4 through C6. T-spine 2-3/ 5 6 and lumbar spine T throughout L2 with essentially ablation of the cord from L2 through L5. Status post emergent surgery per Dr. Chakraborty 01/03 Acetaminophen 650 mg p.o. every 6 hours as needed pain 1-5/fever d/c ketamine. decrease gabapentin 400 mg TID. wean oxycodone to 10mg po q4h scheduled. Morphine sulfate 2 mg IV every 8 as needed pain 6 or 10 Neurochecks CV: Dyslipidemia Severe sepsis septic shock- resolved. off vasopressors good diuresis. restart diuresis with concentrated albumin to prevent intravascular volume depletion. Currently on atorvastatin 40 mg p.o. daily. Hospital substitution for rosuvastatin 20 mg p.o. daily continue hydrocortisone wean. Resp: Acute hypoxic hypercarbic respiratory failure- persistent. Vent bundle Nebs Wean FiO2 for goal SPO2 greater than 90% Gas exchange acceptable. daily sbt's OOB to stretcher chair daily GI: Neurogenic ileus- resolving. Acute protein calorie malnutrition- moderate tube feeds. senna/colace, lactulose, miralax, dulcolax supp daily. prn mag citrate if no BM daily. Likely ileus is multifactorial including severe sepsis and postoperative pain, likely compounded by myelopathy and neurogenic component to his ileus Famotidine for GI prophylaxis GI consulted send prealbumin. trend weekly. : BPH Maintain Peck catheter per urology. have discussed with urology: cannot I/O straight cath for now. recommended changing peck catheter Monthly. Currently on tamsulosin 0.4 mg p.o. daily Recent prostate biopsy. Endo: Sliding scale insulin Accu-Cheks to maintain euglycemia/low regimen Renal: Acute kidney injury- resolved Avoid nephrotoxic drugs Monitor urine output Accurate I's and O's Heme: Thrombocytopenia likely secondary to sepsis- resolved. Anemia secondary to acute blood loss Haptoglobin high. LDH normal. Peripheral smear no signs of schistocytes total bilirubin normal. Status post 2 pack platelets 01/04. Followed by hematology no indication for transfusion today. continue to monitor daily. ID: E. coli bacteremia E. coli spinal abscess ID consulted and guiding abx therapy. Emergent decompression + washout FEN Hypokalemia Replace electrolytes as clinically indicated ICU electrolyte protocol MSK: Osteoporosis Holding meloxicam 7.5 mg p.o. twice daily. PT/OT evaluate and treat Access -4/5 left subclavian 9 Nepali introducer sheath: d/c today and place PICC line. 4/5 left radial arterial line: d/c today Peck: keep per urology. change monthly. Prophylaxis -GI -famotidine -DVT -SCD/SQH Esau Feldman MD Jan 14, 2018 12:39
--- NOTE | 2018-01-14 13:11 | HHI.IDPN ---
Subjective Subjective Remarks Mr. Reeves is a 67 y/o CM with history of BPH who underwent a prostate biopsy one week ago, on 12/27/17. On the evening of 12/29/17 he developed fever and chills, low back pain, and lower extremity numbness and paresthesias and muscle spasm. He was seen by his primary care physician and was given medication including muscle relaxant. The symptoms persisted and he returned to his primary care physician on 01/01/18 and was given additional medications including Cipro and medrol dose pack. On 01/02/2018 patient woke up with increased lower extremity weakness and numbness, and fell in the shower in the morning, after which he was unable to ambulate or lift his legs off the bed , and continued to experience pain in the lower back. He went to the emergency room at [facility], and was given additional medication injections. He could not lift his legs off the bed or ambulate in the emergency room, and was taken out to his car and lifted into the car and sent home again. He fell in the driveway again trying to get back into the house. He apparently did not urinate for the entire day. He has no complaint of pain which is numbness paresthesias in the upper extremities. Reportedly on admission there was no numbness or paresthesias over the chest or abdomen or pelvic region. The MRI of thoracic spine shows severe canal stenosis at T2-3 and T5-6 level with cord compressions, complete or near complete canal obliteration at L2-3 L3- 4 and severe multilevel canal stenosis of the C-spine. Entire spine including C spine shows areas of stenosis. Upon my discussion with patient had to be emergently taken to the OR for decompression. Intraop cultures were taken and no hardware placed at present time but it appears that patient will need more surgeries. The MRIs done were non contrast due to Acute renal failure on admission and cannot be repeated. Per dw plan is to treat as epidural abscess stone since patient was treated for few days with antibiotics prior to arrival and also due to patient needing hardware placement which can be seeded. Previously, Intubated, being weaned off sedation, UO is good peck in place. Not on any pressors. There is a plan wean and extubate. ID consulted for evaluation and Management of GN madonna bacteremia (E.coli CTX M negative) and possible epidural abscess. Patient underwent procedure C2-C6 decompressive laminectomy, procedure to T2-T6 decompressive laminectomy as well as lumbar. (Separate incisions) by Dr. Chakraborty Notes reviewed Has evidence of lumbar and thoracic epidural abscess. Moapa J collar in place. Temps ok Not on pressors. On the vent, s/p trach. Now with liquid stool but this is s/p neostigmine and relistor and stool regimen. Has some movement of UE, none in LE Cultures reviewed Antibiotics Current Medications Current Medications Medications (Trade) Dose Ordered Sig/Kaveh Route Start Time Stop Time Status Last Admin (Robaxin) 500 mg QID PO 01/03/18 09:00 01/14/18 12:16 (Flomax) 0.4 mg HS PO 01/03/18 21:00 01/13/18 20:48 (Lipitor) 40 mg DAILY PO 01/03/18 09:00 01/14/18 08:20 (NS Flush) 2 ml UNSCH PRN IV FLUSH 01/03/18 05:00 (NS Flush) 2 ml BID IV FLUSH 01/03/18 09:00 01/14/18 08:20 (Tylenol) 650 mg Q6H PRN PO 01/03/18 05:00 01/12/18 16:29 (Zofran Inj) 4 mg Q6H PRN IV PUSH 01/03/18 05:00 01/05/18 15:50 (Roxana-Colace) 1 tab BID PO 01/03/18 09:00 01/14/18 08:19 (Tears Naturale Opth Soln) 1 drop Q8HR EACH EYE 01/03/18 14:00 01/14/18 06:00 (Albuterol Neb) 2.5 mg Q2HR NEB PRN NEB 01/03/18 10:00 01/09/18 11:30 (Pepcid) 20 mg BID PO 01/04/18 21:00 01/14/18 08:19 (K-Phos Neutral) 250 mg Q6HR PO 01/05/18 18:00 01/14/18 06:43 (Morphine Inj) 2 mg Q4H PRN IV PUSH 01/05/18 15:45 01/08/18 03:42 Ceftazidime 2000 mg/Sodium Chloride 100 ml @ 200 mls/hr Q8H IV 01/06/18 14:00 01/14/18 06:42 (Dulcolax Supp) 10 mg DAILY RECTAL 01/09/18 16:15 01/11/18 08:07 (SoluCORTEF INJ) 25 mg Taper DAILY IV PUSH 01/11/18 12:00 01/15/18 11:59 01/14/18 01:02 Potassium Chloride 100 ml @ 50 mls/hr Q2H PRN IV 01/12/18 08:30 01/14/18 12:07 Potassium Chloride 100 ml @ 50 mls/hr Q2H PRN IV 01/12/18 08:30 (K-Lyte Cl Eff) 50 meq UNSCH PRN PO 01/12/18 08:30 Potassium Chloride 100 ml @ 25 mls/hr UNSCH PRN IV 01/12/18 08:30 01/13/18 03:08 Potassium Chloride 100 ml @ 50 mls/hr Q2H PRN IV 01/12/18 08:30 Magnesium Sulfate 4 gm/Sodium Chloride 100 ml @ 50 mls/hr UNSCH PRN IV 01/12/18 08:30 (Mag-Ox) 800 mg UNSCH PRN PO 01/12/18 08:30 Magnesium Sulfate 2 gm/Sodium Chloride 100 ml @ 50 mls/hr UNSCH PRN IV 01/12/18 08:30 (K-Phos) 2,000 mg Q4H PRN PO 01/12/18 08:30 Sodium Phosphate 30 mmol/Sodium Chloride 250 ml @ 42 mls/hr UNSCH PRN IV 01/12/18 08:30 (K-Phos) 2,000 mg UNSCH PRN PO/TUBE 01/12/18 08:30 Potassium Phosphate 30 mmol/ Sodium Chloride 260 ml @ 42 mls/hr UNSCH PRN IV 01/12/18 08:30 (Miralax) 17 gm BID PO 01/12/18 09:00 Future Hold 01/14/18 08:20 (Lactulose Liq) 30 ml BID PO 01/12/18 09:00 Future Hold 01/13/18 20:48 (Heparin Inj) 5,000 units Q8HR SQ 01/13/18 14:00 01/14/18 06:42 (Neurontin Liq) 400 mg TID NG 01/14/18 13:00 01/14/18 12:14 (Roxicodone Intensol Liq) 10 mg Q6H PO 01/14/18 16:00 (Lasix Inj) 40 mg Q8H IV PUSH 01/14/18 12:00 01/14/18 12:15 Albumin Human 100 ml @ 60 mls/hr Q8H IV 01/14/18 12:00 01/14/18 12:14 Lines Line sites with no e.o infection - LSC Past Medical History Depression BPH Hypothyroidism Past Surgical History Prostate biopsy, Tonsillectomy, history of kidney surgery. Prostate surgery Allergies: Coded Allergies: No Known Allergies (Unverified , 01/02/18) Objective . Vital Signs Date Time Temp Pulse Resp B/P (MAP) Pulse Ox O2 Delivery O2 Flow Rate FiO2 01/14/18 12:05 98 T-piece 40 01/14/18 11:57 99 40 01/14/18 08:51 30 01/14/18 08:51 99 40 01/14/18 08:00 99.3 84 20 146/70 (95) 100 01/14/18 08:00 45 01/14/18 06:00 82 01/14/18 05:00 97 60 01/14/18 04:00 99.0 82 20 142/64 (90) 97 01/14/18 04:00 82 01/14/18 04:00 45 01/14/18 02:00 81 01/14/18 00:00 99.1 82 20 129/60 (83) 97 01/14/18 00:00 84 01/14/18 00:00 45 01/13/18 22:00 84 01/13/18 20:10 98 60 01/13/18 20:00 99.3 82 20 145/95 (112) 100 01/13/18 20:00 85 01/13/18 20:00 45 01/13/18 18:07 100 100 01/13/18 18:00 79 01/13/18 16:30 100 01/13/18 16:00 98.8 84 20 163/74 (103) 99 01/13/18 16:00 40 01/13/18 16:00 77 01/13/18 14:00 77 01/14/18 01/14/18 01/15/18 15:00 23:00 07:00 Intake Total 200 ml Balance 200 ml IV Total 200 ml . Laboratory Tests Test 01/13/18 07:45 01/14/18 06:00 White Blood Count 11.8 TH/MM3 11.3 TH/MM3 Red Blood Count 2.55 MIL/MM3 2.54 MIL/MM3 Hemoglobin 7.8 GM/DL 7.8 GM/DL Hematocrit 22.7 % 22.4 % Mean Corpuscular Volume 89.0 FL 88.0 FL Mean Corpuscular Hemoglobin 30.5 PG 30.6 PG Mean Corpuscular Hemoglobin Concent 34.2 % 34.8 % Red Cell Distribution Width 14.5 % 14.6 % Platelet Count 398 TH/MM3 417 TH/MM3 Mean Platelet Volume 7.7 FL 7.6 FL Laboratory Tests Test 01/12/18 16:40 01/12/18 22:50 01/13/18 07:45 01/13/18 15:00 Blood Urea Nitrogen 17 MG/DL 20 MG/DL Creatinine 0.70 MG/DL 0.84 MG/DL Random Glucose 115 MG/DL 185 MG/DL Total Protein 6.7 GM/DL 5.4 GM/DL Calcium Level 7.2 MG/DL 7.0 MG/DL Magnesium Level 2.2 MG/DL Sodium Level 143 MEQ/L 146 MEQ/L Potassium Level 3.2 MEQ/L 3.0 MEQ/L 2.9 MEQ/L 3.1 MEQ/L Chloride Level 107 MEQ/L 109 MEQ/L Carbon Dioxide Level 28.9 MEQ/L 31.1 MEQ/L Anion Gap 7 MEQ/L 6 MEQ/L Estimat Glomerular Filtration Rate 112 ML/MIN 91 ML/MIN Protein Corrected Calcium 7.4 MG/DL 7.9 MG/DL Prealbumin 20 MG/DL Test 01/14/18 06:00 Blood Urea Nitrogen 18 MG/DL Creatinine 0.66 MG/DL Random Glucose 143 MG/DL Calcium Level 7.5 MG/DL Sodium Level 147 MEQ/L Potassium Level 3.1 MEQ/L Chloride Level 110 MEQ/L Carbon Dioxide Level 32.5 MEQ/L Anion Gap 5 MEQ/L Estimat Glomerular Filtration Rate 120 ML/MIN Imaging Abdomen X-Ray 01/12/18 0600 Signed Impressions: Service Date/Time: Friday, January 12, 2018 04:57 - CONCLUSION: Mild gaseous distention possibly ileus. Hussein Fontaine MD Abdomen X-Ray 01/08/18 0600 Signed Impressions: Service Date/Time: Monday, January 08, 2018 03:53 - CONCLUSION: Decrease in colonic air filled distention. Pattern likely represents ileus. Marcial Redmond MD Thoracic Spine X-Ray 01/08/18 0000 Signed Impressions: Service Date/Time: Sunday, January 07, 2018 21:17 - CONCLUSION: Intraoperative spot images of the thoracic spine for localization purposes. Marcial Redmond MD Lumbar Spine X-Ray 01/08/18 0000 Signed Impressions: Service Date/Time: Sunday, January 07, 2018 21:17 - CONCLUSION: Single intraoperative spot image for localization purposes. Marcial Redmond MD Chest X-Ray 01/08/18 0000 Signed Impressions: Service Date/Time: Monday, January 08, 2018 19:43 - CONCLUSION: Left lower lobe atelectasis or consolidation. Harley Ritter MD Thoracic Spine MRI 01/06/18 0000 Signed Impressions: Service Date/Time: January 14:23 - CONCLUSION: 1. Multilevel cord compression is due predominantly to multiple disc protrusions. Significant cord compression is present at least 6 levels. There is also cord compression posteriorly at the T10 level due to a fluid collection in the midline which measures 6 mm in AP dimension. 2. There is also focal subcutaneous right parasagittal fluid collection at T10 and T11 which does not demonstrate peripheral contrast enhancement. An abscess is suspected. Jagjit Wilkinson MD Chest CT 01/06/18 0000 Signed Impressions: Service Date/Time: January 18:51 - CONCLUSION: 1. No abscess identified outside of the thoracic spinal canal. Small bilateral pleural effusions. NG coiled in the stomach. Frederick Rizzo MD Cervical Spine MRI 01/06/18 0000 Signed Impressions: Service Date/Time: January 14:23 - CONCLUSION: 1. Severe degenerative changes with severe spinal stenosis at C2-3, C3-4, C4-5 and C5-6. There is moderate spinal stenosis at C6-7 and C7-T1. Overall assessment of the cord is limited due to motion artifact. I do not definitively see edema within the cord however there is significant flattening of the cord at multiple levels. 2. No significant abnormal contrast enhancement identified. Leonardo Sorenson MD Brain MRI 01/06/18 0000 Signed Impressions: Service Date/Time: January 14:23 - CONCLUSION: 1. Negative MRI of the brain with and without contrast. Jagjit Wilkinson MD Abdomen/Pelvis CT 01/06/18 0000 Signed Impressions: Service Date/Time: January 18:51 - CONCLUSION: 1. Multiple laminectomy defects in the lumbar spine with some locules of air both within the canal and within the L2 vertebral body which could be related to infection. Cannot exclude abscess formation within the canal. 2. 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 3. Diffuse ileus. 4. Small effusions and mild anasarca. 5. Peck catheter in decompressed bladder. NG coiled in stomach. Frederick Rizzo MD Lumbar Spine MRI 01/05/18 0000 Signed Impressions: Service Date/Time: Friday, January 05, 2018 14:27 - CONCLUSION: 1. Extensive postsurgical changes with apparent left decompressive laminectomy leftward from L1 to through L4-5. 2. There is a well-circumscribed 1.4 cm cystic structure midline just posterior to the thecal sac at L4-5 which was not clearly present previously. May represent a small seroma which could result in some degree of central spinal stenosis despite the left laminectomy. 3. In addition, severe narrowing of the right L4-5 neural foramen with almost certain compromise of the right L4 nerve root. Emir Bowles MD Physical Exam GENERAL: This is a well-nourished, well-developed patient, intubated, sedated. SKIN: Warm and dry. HEAD: Normocephalic. EYES: Pupils equal round. No scleral icterus. No injection or drainage. ENT: Orally intubated, no nasal discharge NECK: Trachea midline. Moapa J collar in place. CARDIOVASCULAR: Tachycardic. RESPIRATORY: Has scattered rhonchi GASTROINTESTINAL: Abdomen non-tender, soft, slightly distended. : Peck catheter draining gila colored urine. Significant scrotal edema. BACK: GUIDO drain in cervical upper thoracic areas all with serosanguineous drainage. Surgical incisions healing well per nursing report. MUSCULOSKELETAL: Extremities without clubbing, cyanosis. Generalized edema +1 of extremities. Back: Surgical dressing intact is water proof. No surrounding erythema. 2JP drains in upper part of thorax/neck with sanguinous drainage. NEUROLOGICAL: Opens eyes follows commands. Moves UE at wrist level. Paraplegia. LINES: Left IJ central line in place. Assessment & Plan Remarks Severe Sepsis present on admission (leucocytosis, Tachycardia, source: bacteremia and epidural abscess. E.coli bacteremia high grade E.Coli UTI recent prostate biopsy. PNA aspiration/HCAP Epidural abscess, thoracic and lumbar, C/S E coli - S/P surgery and evacuation Recent history of prostate biopsy as risk factor for E.coli bacteremia. Incomplete Quadriparesis. Paraparesis present on admission. Recs: Continue Ceftazidime IV for E.coli Sepsis and Osteomyelitis of C,T,L spine plus epidural abscesses. Weaning may be difficult due to incomplete quad Follow cultures Follow clinically. to cover for me this weekend and to cover 01/17/18 and 01/18/18. Shanda Charles MD Jan 14, 2018 13:11
[2018-01-14] MEDS: MORPHINE SULFATE 2 MG/ML SYRINGE IV PUSH PRN ×2 (17:15→22:10)
--- NOTE | 2018-01-14 17:42 | HHI.PR ---
Subjective Patient symptoms today Patient seen and examined. Some mild UE improvement. Awake and alert. Trach in place, on vent. Peck with clear urine Objective Vital Signs Vital Signs Date Time Temp Pulse Resp B/P (MAP) Pulse Ox O2 Delivery O2 Flow Rate FiO2 01/14/18 16:38 100 40 01/14/18 16:00 45 01/14/18 16:00 99.0 86 20 140/78 (98) 99 01/14/18 15:06 40 01/14/18 12:05 98 T-piece 40 01/14/18 12:00 98 T-Piece 01/14/18 12:00 98.9 97 21 147/63 (91) 98 01/14/18 11:57 99 40 01/14/18 08:51 30 01/14/18 08:51 99 40 01/14/18 08:00 99.3 84 20 146/70 (95) 100 01/14/18 08:00 45 01/14/18 06:00 82 01/14/18 05:00 97 60 01/14/18 04:00 99.0 82 20 142/64 (90) 97 01/14/18 04:00 82 01/14/18 04:00 45 01/14/18 02:00 81 01/14/18 00:00 99.1 82 20 129/60 (83) 97 01/14/18 00:00 84 01/14/18 00:00 45 01/13/18 22:00 84 01/13/18 20:10 98 60 01/13/18 20:00 99.3 82 20 145/95 (112) 100 01/13/18 20:00 85 01/13/18 20:00 45 01/13/18 18:07 100 100 01/13/18 18:00 79 Intake & Output 01/14/18 01/14/18 07:00 19:00 Intake Total 1247 ml 200 ml Output Total 1435 ml Balance -188 ml 200 ml IV Total 200 ml Tube Feeding 647 ml Tube Irrigant 600 ml Output Urine Total 1265 ml Stool Total 150 ml Drainage Total 20 ml Result Diagram: 01/14/18 0600 01/14/18 0600 Objective Remarks Peck with clear urine Medications and IVs Current Medications Medications (Trade) Dose Ordered Sig/Kaveh Route Start Time Stop Time Status Last Admin (Robaxin) 500 mg QID PO 01/03/18 09:00 01/14/18 17:25 (Flomax) 0.4 mg HS PO 01/03/18 21:00 01/13/18 20:48 (Lipitor) 40 mg DAILY PO 01/03/18 09:00 01/14/18 08:20 (NS Flush) 2 ml UNSCH PRN IV FLUSH 01/03/18 05:00 (NS Flush) 2 ml BID IV FLUSH 01/03/18 09:00 01/14/18 08:20 (Tylenol) 650 mg Q6H PRN PO 01/03/18 05:00 01/12/18 16:29 (Zofran Inj) 4 mg Q6H PRN IV PUSH 01/03/18 05:00 01/05/18 15:50 (Roxana-Colace) 1 tab BID PO 01/03/18 09:00 01/14/18 08:19 (Tears Naturale Opth Soln) 1 drop Q8HR EACH EYE 01/03/18 14:00 01/14/18 13:55 (Albuterol Neb) 2.5 mg Q2HR NEB PRN NEB 01/03/18 10:00 01/09/18 11:30 (Pepcid) 20 mg BID PO 01/04/18 21:00 01/14/18 08:19 (K-Phos Neutral) 250 mg Q6HR PO 01/05/18 18:00 01/14/18 17:25 (Morphine Inj) 2 mg Q4H PRN IV PUSH 01/05/18 15:45 01/14/18 17:15 Ceftazidime 2000 mg/Sodium Chloride 100 ml @ 200 mls/hr Q8H IV 01/06/18 14:00 01/14/18 13:55 (Dulcolax Supp) 10 mg DAILY RECTAL 01/09/18 16:15 01/11/18 08:07 (SoluCORTEF INJ) 25 mg Taper DAILY IV PUSH 01/11/18 12:00 01/15/18 11:59 01/14/18 01:02 Potassium Chloride 100 ml @ 50 mls/hr Q2H PRN IV 01/12/18 08:30 01/14/18 12:07 Potassium Chloride 100 ml @ 50 mls/hr Q2H PRN IV 01/12/18 08:30 (K-Lyte Cl Eff) 50 meq UNSCH PRN PO 01/12/18 08:30 Potassium Chloride 100 ml @ 25 mls/hr UNSCH PRN IV 01/12/18 08:30 01/13/18 03:08 Potassium Chloride 100 ml @ 50 mls/hr Q2H PRN IV 01/12/18 08:30 Magnesium Sulfate 4 gm/Sodium Chloride 100 ml @ 50 mls/hr UNSCH PRN IV 01/12/18 08:30 (Mag-Ox) 800 mg UNSCH PRN PO 01/12/18 08:30 Magnesium Sulfate 2 gm/Sodium Chloride 100 ml @ 50 mls/hr UNSCH PRN IV 01/12/18 08:30 (K-Phos) 2,000 mg Q4H PRN PO 01/12/18 08:30 Sodium Phosphate 30 mmol/Sodium Chloride 250 ml @ 42 mls/hr UNSCH PRN IV 01/12/18 08:30 (K-Phos) 2,000 mg UNSCH PRN PO/TUBE 01/12/18 08:30 Potassium Phosphate 30 mmol/ Sodium Chloride 260 ml @ 42 mls/hr UNSCH PRN IV 01/12/18 08:30 (Miralax) 17 gm BID PO 01/12/18 09:00 Future Hold 01/14/18 08:20 (Lactulose Liq) 30 ml BID PO 01/12/18 09:00 Future Hold 01/13/18 20:48 (Heparin Inj) 5,000 units Q8HR SQ 01/13/18 14:00 01/14/18 13:55 (Neurontin Liq) 400 mg TID NG 01/14/18 13:00 01/14/18 17:25 (Roxicodone Intensol Liq) 10 mg Q6H PO 01/14/18 16:00 01/14/18 15:53 (Lasix Inj) 40 mg Q8H IV PUSH 01/14/18 12:00 01/14/18 12:15 Albumin Human 100 ml @ 60 mls/hr Q8H IV 01/14/18 12:00 01/14/18 12:14 Assessment and Plan Assessment and Plan -Maintain peck catheter in place until more awake/mobile -May consider peck removal at that time, however recommend keeping catheter in place with monthly catheter exchanges until patient has undergone rehab and baseline function is established -Discussed this with patient and nursing staff. Patient indicated understanding -Will follow Walter Juarez MD Jan 14, 2018 17:42
[2018-01-14] MEDS: TAMSULOSIN HCL 0.4 MG CAP PO SCH (20:17)
[2018-01-15] VITALS (17 sets, daily range): BP systolic 112–138; BP diastolic 61–72; PULSE 75–89; RESP 18–25; TEMP 98.3–100.7; O2SAT 98–100
[2018-01-15] MEDS: POTASSIUM PHOSPHATE/SODIUM PHOSPHATE 250 MG TAB PO SCH ×5 (00:13→23:49)
[2018-01-15] MEDS: ALBUMIN 25% INJ 100 ML IV SCH ×3 (03:59→20:13)
[2018-01-15] MEDS: oxyCODONE HCL ORAL CONC 5 MG/0.25 ML SYRINGE PO SCH ×4 (04:00→20:13)
[2018-01-15] MEDS: FUROSEMIDE 40 MG/4 ML VIAL IV PUSH SCH ×3 (04:01→20:13)
[2018-01-15 04:20] LABS: HEMATOCRIT 21.7 % (39.0-51.0); HEMOGLOBIN 7.5 GM/DL (13.0-17.0); MEAN CELL VOLUME 88.7 FL (80.0-100.0); MEAN CORPUSCULAR HEMOGLOBIN 30.7 PG (27.0-34.0); MEAN CORPUSCULAR HGB CONC 34.6 % (32.0-36.0); MEAN PLATELET VOLUME 7.3 FL (7.0-11.0); PLATELET COUNT 383 TH/MM3 (150-450); RED BLOOD COUNT 2.44 MIL/MM3 (4.50-5.90); RED CELL DISTRIBUTION WIDTH 14.7 % (11.6-17.2); WHITE BLOOD COUNT 9.4 TH/MM3 (4.0-11.0)
[2018-01-15 04:54] LABS: CALCIUM 8.1 MG/DL (8.5-10.1); CREATININE 0.68 MG/DL (0.60-1.30)
[2018-01-15] MEDS: cefTAZidime INJ 2,000 MG in SODIUM CHLORIDE 0.9% INJ 100 ML IV SCH ×3 (05:21→20:12)
[2018-01-15] MEDS: HEPARIN SODIUM - SQ 10,000 UNITS/ML VIAL SQ SCH ×3 (05:21→20:13)
[2018-01-15] MEDS: ARTIFICIAL TEARS OPTH SOLN 15 ML BTL EACH EYE SCH ×3 (05:22→20:14)
[2018-01-15] MEDS: POTASSIUM CHLOR 40 MEQ PREMIX 100 ML IV PRN ×2 (05:57→21:42)
[2018-01-15] MEDS: ATORVASTATIN 40 MG TAB PO SCH (08:53)
[2018-01-15] MEDS: METHOCARBAMOL 500 MG TAB PO SCH ×4 (08:53→20:14)
[2018-01-15] MEDS: FAMOTIDINE 20 MG TAB PO SCH ×2 (08:53→20:13)
[2018-01-15] MEDS: POTASSIUM CHLORIDE 25 MEQ EFFERVESCENT TAB PO PRN ×2 (08:54→17:45)
[2018-01-15] MEDS: BISACODYL 10 MG SUPP RECTAL SCH (08:54)
[2018-01-15] MEDS: SODIUM CHLORIDE 0.9% FLUSH 10 ML FLUSH IV FLUSH SCH ×2 (08:54→20:14)
[2018-01-15] MEDS: GABAPENTIN 250 MG/5 ML UDC NG SCH ×3 (08:54→17:44)
[2018-01-15] MEDS: HYDROCORTISONE SOD SUCCINATE 100 MG VIAL IV PUSH SCH (08:54)
[2018-01-15] MEDS: DOCUSATE SODIUM 50 MG/SENNA 8.6 MG TAB PO SCH ×2 (08:54→20:13)
--- NOTE | 2018-01-15 13:30 | HHI.NSPN ---
(Marina Beavers) Note Status Status: Progress Note (Marina Beavers) Interval History Interval History s/p C2-C6 decompressive laminectomy, T2-T6 decompressive laminectomy on Jan 06, 2018 for severe cervical and thoracic disc disease with stenosis and myelopathy. Also [id number] decompressive semi-laminectomy, evacuation thoracic epidural abscess, and revision L2-3, L3 4, L4 5 decompressive semi-laminectomy with evacuation lumbar epidural abscess and epidural hematoma on Jan 07, 2018 for spinal epidural abscess, thoracic disc disease with myelopathy, lumbar canal stenosis, postoperative lumbar epidural hematoma 01/15: doing well, family at beside, remains very weak in extremities (Marina Beavers) Labs, Micro, & Vital Signs Results Date Time Temp Pulse Resp B/P (MAP) Pulse Ox O2 Delivery O2 Flow Rate FiO2 01/15/18 12:00 85 01/15/18 12:00 40 01/15/18 12:00 99.2 87 25 125/61 (82) 98 01/15/18 11:53 99 T-piece 6.00 35 01/15/18 10:34 40 01/15/18 10:00 89 01/15/18 09:50 99 40 01/15/18 09:50 40 01/15/18 08:00 98.7 85 19 120/68 (85) 99 01/15/18 08:00 40 01/15/18 08:00 83 01/15/18 07:00 100 Mechanical Ventilator 40 01/15/18 06:00 79 01/15/18 04:00 40 01/15/18 04:00 99.6 77 18 131/71 (91) 99 01/15/18 04:00 80 01/15/18 02:00 75 01/15/18 01:20 99 40 01/15/18 00:00 79 01/15/18 00:00 45 01/15/18 00:00 100.7 79 20 112/71 (85) 100 Arterial Line 01/14/18 22:00 80 01/14/18 20:30 98 40 01/14/18 20:00 80 01/14/18 20:00 100.2 80 16 125/67 (86) 98 Arterial Line 01/14/18 20:00 40 01/14/18 19:00 100 Mechanical Ventilator 40 01/14/18 16:38 100 40 01/14/18 16:00 45 01/14/18 16:00 99.0 86 20 140/78 (98) 99 01/14/18 15:06 40 Constitutional Vital Signs Date Time Temp Pulse Resp B/P (MAP) Pulse Ox O2 Delivery O2 Flow Rate FiO2 01/15/18 12:00 85 01/15/18 12:00 40 01/15/18 12:00 99.2 87 25 125/61 (82) 98 01/15/18 11:53 99 T-piece 6.00 35 01/15/18 10:34 40 01/15/18 10:00 89 01/15/18 09:50 99 40 01/15/18 09:50 40 01/15/18 08:00 98.7 85 19 120/68 (85) 99 01/15/18 08:00 40 01/15/18 08:00 83 01/15/18 07:00 100 Mechanical Ventilator 40 01/15/18 06:00 79 01/15/18 04:00 40 01/15/18 04:00 99.6 77 18 131/71 (91) 99 01/15/18 04:00 80 01/15/18 02:00 75 01/15/18 01:20 99 40 01/15/18 00:00 79 01/15/18 00:00 45 01/15/18 00:00 100.7 79 20 112/71 (85) 100 Arterial Line 01/14/18 22:00 80 01/14/18 20:30 98 40 01/14/18 20:00 80 01/14/18 20:00 100.2 80 16 125/67 (86) 98 Arterial Line 01/14/18 20:00 40 01/14/18 19:00 100 Mechanical Ventilator 40 01/14/18 16:38 100 40 01/14/18 16:00 45 01/14/18 16:00 99.0 86 20 140/78 (98) 99 01/14/18 15:06 40 (Marina Beavers) Physical Exam General: In no acute distress. HEENT: Normocephalic. Nonicteric sclera. Neck: [place] J cervical collar in place. tracheostomy Musculoskeletal: Diffuse extremity swelling, Weak warper fixer with both hands, 0/5 lower extremity movement. Neuro: Awake & alert. Nonverbal due to trach. Nods to questions. CN: pupils equal, facial motor symmetric at rest. Heart: regular rate rhythm (Marina Beavers) Medications Current Medications Current Medications Medications (Trade) Dose Ordered Sig/Kaveh Route PRN Reason Start Time Stop Time Status Last Admin Dose Admin Methocarbamol (Robaxin) 500 mg QID PO 01/03/18 09:00 01/15/18 12:00 Tamsulosin HCl (Flomax) 0.4 mg HS PO 01/03/18 21:00 01/14/18 20:17 Atorvastatin Calcium (Lipitor) 40 mg DAILY PO 01/03/18 09:00 01/15/18 08:53 Sodium Chloride (NS Flush) 2 ml UNSCH PRN IV FLUSH FLUSH AFTER USING IV ACCESS 01/03/18 05:00 Sodium Chloride (NS Flush) 2 ml BID IV FLUSH 01/03/18 09:00 01/15/18 08:54 Acetaminophen (Tylenol) 650 mg Q6H PRN PO PAIN 1-5 AND/OR FEVER >101F 01/03/18 05:00 01/12/18 16:29 Ondansetron HCl (Zofran Inj) 4 mg Q6H PRN IV PUSH NAUSEA OR VOMITING 01/03/18 05:00 01/05/18 15:50 Senna/Docusate Sodium (Roxana-Colace) 1 tab BID PO 01/03/18 09:00 01/14/18 20:17 Artificial Tears (Tears Naturale Opth Soln) 1 drop Q8HR EACH EYE 01/03/18 14:00 01/15/18 05:22 Albuterol Sulfate (Albuterol Neb) 2.5 mg Q2HR NEB PRN NEB dyspnea 01/03/18 10:00 01/09/18 11:30 Famotidine (Pepcid) 20 mg BID PO 01/04/18 21:00 01/15/18 08:53 Potassium Phos/ Sodium Phos (K-Phos Neutral) 250 mg Q6HR PO 01/05/18 18:00 01/15/18 11:16 Morphine Sulfate (Morphine Inj) 2 mg Q4H PRN IV PUSH BREAKTHROUGH PAIN 01/05/18 15:45 01/14/18 22:10 Ceftazidime 2000 mg/Sodium Chloride 100 ml @ 200 mls/hr Q8H IV 01/06/18 14:00 01/15/18 05:21 Bisacodyl (Dulcolax Supp) 10 mg DAILY RECTAL 01/09/18 16:15 01/11/18 08:07 Potassium Chloride 100 ml @ 50 mls/hr Q2H PRN IV For Potassium 2.8 - 3.2 mEq/L 01/12/18 08:30 01/15/18 05:57 Potassium Chloride 100 ml @ 50 mls/hr Q2H PRN IV For Potassium 2.8 - 3.2 mEq/L 01/12/18 08:30 Potassium Bicarb/ Potassium Chloride (K-Lyte Cl Eff) 50 meq UNSCH PRN PO For Potassium 3.3 - 3.5 mEq/L 01/12/18 08:30 01/15/18 08:54 Potassium Chloride 100 ml @ 25 mls/hr UNSCH PRN IV For Potassium 3.3 - 3.5 mEq/L 01/12/18 08:30 01/13/18 03:08 Potassium Chloride 100 ml @ 50 mls/hr Q2H PRN IV For Potassium 3.3 - 3.5 mEq/L 01/12/18 08:30 Magnesium Sulfate 4 gm/Sodium Chloride 100 ml @ 50 mls/hr UNSCH PRN IV For Magnesium 0.9 - 1.1 mg/dL 01/12/18 08:30 Magnesium Oxide (Mag-Ox) 800 mg UNSCH PRN PO For Magnesium 1.2 - 1.6 mg/dL 01/12/18 08:30 Magnesium Sulfate 2 gm/Sodium Chloride 100 ml @ 50 mls/hr UNSCH PRN IV For Magnesium 1.2 - 1.6 mg/dL 01/12/18 08:30 Potassium Phosphate (K-Phos) 2,000 mg Q4H PRN PO For Phosphorus < 2.5 mg/dL 01/12/18 08:30 Sodium Phosphate 30 mmol/Sodium Chloride 250 ml @ 42 mls/hr UNSCH PRN IV For Phosphorus < 2.5 mg/dL 01/12/18 08:30 Potassium Phosphate (K-Phos) 2,000 mg UNSCH PRN PO/TUBE SEE LABEL COMMENTS 01/12/18 08:30 Potassium Phosphate 30 mmol/ Sodium Chloride 260 ml @ 42 mls/hr UNSCH PRN IV SEE LABEL COMMENTS 01/12/18 08:30 Polyethylene Glycol (Miralax) 17 gm BID PO 01/12/18 09:00 Future Hold 01/14/18 08:20 Lactulose (Lactulose Liq) 30 ml BID PO 01/12/18 09:00 Future Hold 01/13/18 20:48 Heparin Sodium (Porcine) (Heparin Inj) 5,000 units Q8HR SQ 01/13/18 14:00 01/15/18 05:21 Gabapentin (Neurontin Liq) 400 mg TID NG 01/14/18 13:00 01/15/18 12:00 Oxycodone HCl (Roxicodone Intensol Liq) 10 mg Q6H PO 01/14/18 16:00 01/15/18 09:16 Furosemide (Lasix Inj) 40 mg Q8H IV PUSH 01/14/18 12:00 01/15/18 11:16 Albumin Human 100 ml @ 60 mls/hr Q8H IV 01/14/18 12:00 01/15/18 11:16 Heparin Sodium (Porcine) (Heparin Central Flush) See Protocol DAILY IV FLUSH 01/15/18 09:00 Heparin Sodium (Porcine) (Heparin Central Flush) See Protocol UNSCH PRN IV FLUSH SEE PROTOCOL TABLE 01/14/18 21:15 Sodium Chloride (NS Flush) UNSCH PRN IV FLUSH SEE PROTOCOL TABLE 01/14/18 21:15 (Marina Beavers) Medical Decision Making MDM Remarks 67 y/o male s/p C2-C6 decompressive laminectomy, T2-T6 decompressive laminectomy on Jan 06, 2018 for severe cervical and thoracic disc disease with stenosis and myelopathy. Also [id number] decompressive semi-laminectomy, evacuation thoracic epidural abscess, and revision L2-3, L3 4, L4 5 decompressive semi-laminectomy with evacuation lumbar epidural abscess and epidural hematoma on Jan 07, 2018 for spinal epidural abscess, thoracic disc disease with myelopathy, lumbar canal stenosis, postoperative lumbar epidural hematoma (Marina Beavers) Plan Plan Remarks cont antibiotic tx, cont critical care cont supportive care therapy and rehab efforts (Marina Beavers) Attending Statement The exam, history, and the medical decision-making described in the above note were completed with the assistance of the mid-level provider. I reviewed and agree with the findings presented. I attest that I had a [id number] encounter with the patient on the same day, and personally performed and documented my assessment and findings in the medical record. (Dakota Hou MD) Marina Beavers Jan 15, 2018 13:30 Dakota Hou MD Jan 16, 2018 21:25
--- NOTE | 2018-01-15 14:17 | HHI.CCPN ---
Subjective Remarks/Hospital Course 67-year-old male who underwent a prostate biopsy one week ago, on 12/27/17. On the evening of 12/29/17 he developed fever and chills, low back pain, and lower extremity numbness and paresthesias and muscle spasm. He was seen by his primary care physician and was given medication including muscle relaxant. The symptoms persisted and he returned to his primary care physician on Wednesday, and was given additional medications including Cipro. He awoke on 01/02/2018 with increased lower extremity weakness and numbness, and fell in the shower in the morning, after which he was unable to ambulate or lift his legs off the bed, and continued to experience pain in the lower back. He went to the emergency room at [facility], and was given additional medication injections. He could not lift his legs off the bed or ambulate in the emergency room, and was taken out to his car and lifted into the car and sent home again. He fell in the driveway again trying to get back into the house. He apparently did not urinate for the entire day. He has no complaint of pain which is numbness paresthesias in the upper extremities. No numbness or paresthesias over the chest or abdomen or pelvic region. The MRI of thoracic spine shows severe canal stenosis at T2-3 and T5-6 level with cord compressions, complete or near complete canal obliteration at L2 -3 L3-4 and severe multilevel canal stenosis of the C-spine. The patient is emergently taken to operating room by Dr. Chakraborty. Subjective 01/04: Extubated late afternoon yesterday without any complications. Some sensation bilateral lower extremities. Strength 4-5 bilateral upper extremities. Afebrile. Hemodynamically stable. 01/06: RECONSULT NOTE: reconsulted for respiratory distress. in brief, 67yM with recent prostate biopsy complicated by e. coli bacteremia and lumbar epidural abscess. he was stable and sent to the floor where he developed respiratory distress, fever, tachycardia, tachypnea, diaphoresis. on my exam, patient is in distress, appears toxic. repeat MRI spine demonstrates fluid collections and evidence of spinal compression in cervical, thoracic, and lumbar spinal areas concerning for rapidly ascending abscess with neurologic compromise. also, patient was weak in b/l LEs overnight and now is nearly a complete quad, with only 3/5 distal upper extremity strength left and 1/5 proximal upper extremity strength. 01/07: Persistent septic course. Unable to wean from mechanical ventilation. Infectious Disease service is guiding antimicrobial therapy. 01/08: Back from OR. Vent synchrony much improved with large tidal volume breaths. Urine output acceptable, gas exchange acceptable. 01/09: Continued septic course requiring vasopressors, diffuse general edema. 01/10: Improved control of sepsis after surgical source control. Long recovery, high risk. 01/11: shock improving. now off vasopressors. however, now functionally a quad and minimal if any movement in upper extremities. ileus persists despite aggressive therapy. GI following. pain is a significant problem, on 300 mcg/hr of fentanyl: will need a multimodal approach. 01/12: successful bowel regimen overnight with good bowel movements. however, due to 4L GoLytely, did not achieve optimal diuresis. pain better controlled and decreasing fentanyl requirement. 01/13: continues to make slow improvements. however, NIF worsening to -18 and FVC less than 500. very high risk of failure. will need tracheostomy to progress care. 01/14: s/p trach yesterday. up in stretcher chair. clinically improving. more awake. denies pain. ROS negative. 01/15: continues to improve. net -5L/24h. continues to diurese. daily weight 104kg (admission weight 84kg). Cr still at baseline. OOB to stretcher chair and tolerating t-piece. Objective Vital Signs Date Time Temp Pulse Resp B/P (MAP) Pulse Ox O2 Delivery O2 Flow Rate FiO2 01/15/18 12:00 85 01/15/18 12:00 40 01/15/18 12:00 99.2 25 125/61 (82) 98 01/15/18 11:53 T-piece 6.00 Intake and Output 01/15/18 01/15/18 01/16/18 08:00 16:00 00:00 Intake Total 1183 ml Output Total 4275 ml Balance -3092 ml Result Diagram: 01/15/18 0400 01/15/18 0400 Imaging Last Impressions Thoracic Spine MRI 4/2/18 0000 Signed Impressions: Service Date/Time: Wednesday, January 03, 2018 00:38 - CONCLUSION: Multilevel disc abnormalities. Severe canal stenosis at T2-3 and T5-6 with cord compression and mild signal changes in the cord at T2-3 and moderate signal changes within the cord at T5-6. Less severe changes at L2 additional levels as described. Harley Herrera MD Lumbar Spine MRI 01/03/18 Signed Impressions: Service Date/Time: Wednesday, January 03, 2018 00:38 - CONCLUSION: Complete or near complete canal obliteration at L2-3, L3-4 and L4-5 with less severe compromise at L1-2 and T12-L1. Harley Herrera MD Cervical Spine MRI 01/03/18 Signed Impressions: Service Date/Time: Wednesday, January 03, 2018 00:38 - CONCLUSION: Severe multilevel canal stenosis. Findings appear to be most critical at C4-5 and C5-6 where AP canal dimension is reduced to 4-5 mm, however also quite severe at C2-3 and C3-4. Harley Herrera MD Chest X-Ray 01/02/182301 Signed Impressions: Service Date/Time: Tuesday, January 02, 2018 23:11 - CONCLUSION: Mild basilar atelectasis or scarring. Harley Herrera MD Procedures L1 through L5 decompressive laminectomy. Objective Remarks GENERAL: 67-year-old male, trached. SKIN: Warm. HEAD: Normocephalic. EYES: No scleral icterus. No injection or drainage. NECK: Supple, trachea midline. recent trach in place, no evidence of bleeding. c -collar in place. CARDIOVASCULAR: normal rate, regular rhythm. sinus. No JVD. RESPIRATORY: Equal chest rise. PSV 10/5/40%. no accessory muscle use. GASTROINTESTINAL: Abdomen soft, mildly distended. nontender. no guarding. MUSCULOSKELETAL: Diffuse edema, well perfused limbs. NEURO EXAM: No movement of feet to stimulation. Wiggles right fingers. no proximal motor in upper extremities. RASS -1. A/P Assessment and Plan Assessment: 67-year-old male now postop day 8 status post lumbar laminectomy and decompression for epidural abscess who presents now with rapidly progressive spinal abscess with rapidly worsening myelopathy and neurologic function. Now s/p decompression. shock resolved. now s/p trach. needs aggressive PT/OT and rehab. will start work for weaning from mechanical ventilation. continue aggressive diuresis. OOB to stretcher chair daily Neuro/Psych: Postop day #11 Bilateral L1-2, L2-3, L3 4, L4 5 decompressive semi-laminectomy, medial facetectomy for spinal canal decompression. Depression/anxiety Ascending myelopathy Spinal abscess C-spine revealed cord compression C2 through C4 and C4 through C6. T-spine 2-3/ 5 6 and lumbar spine T throughout L2 with essentially ablation of the cord from L2 through L5. Status post emergent surgery per Dr. Chakraborty / Acetaminophen 650 mg p.o. every 6 hours as needed pain 1-5/fever gabapentin 400 mg TID. oxycodone to 10mg po q4h scheduled. Morphine sulfate 2 mg IV every 8 as needed pain 6 or 10 Neurochecks CV: Dyslipidemia Severe sepsis septic shock- resolved. off vasopressors good diuresis. continue lasix 40mg iv q8h with albumin diamox 500mg iv x 1 today for contraction alkalosis. Currently on atorvastatin 40 mg p.o. daily. Hospital substitution for rosuvastatin 20 mg p.o. daily continue hydrocortisone wean. Resp: Acute hypoxic hypercarbic respiratory failure- persistent. Vent bundle Nebs Wean FiO2 for goal SPO2 greater than 90% Gas exchange acceptable. daily sbt's OOB to stretcher chair daily GI: Neurogenic ileus- resolving. Acute protein calorie malnutrition- moderate tube feeds. senna/colace, lactulose, miralax, dulcolax supp daily. prn mag citrate if no BM daily. Likely ileus is multifactorial including severe sepsis and postoperative pain, likely compounded by myelopathy and neurogenic component to his ileus Famotidine for GI prophylaxis GI consulted send prealbumin. trend weekly. : BPH Maintain Peck catheter per urology. have discussed with urology: cannot I/O straight cath for now. recommended changing peck catheter Monthly. Currently on tamsulosin 0.4 mg p.o. daily Recent prostate biopsy. Endo: Sliding scale insulin Accu-Cheks to maintain euglycemia/low regimen Renal: Acute kidney injury- resolved Avoid nephrotoxic drugs Monitor urine output Accurate I's and O's Heme: Thrombocytopenia likely secondary to sepsis- resolved. Anemia secondary to acute blood loss Haptoglobin high. LDH normal. Peripheral smear no signs of schistocytes total bilirubin normal. Status post 2 pack platelets 01/04. Followed by hematology no indication for transfusion today. continue to monitor daily. ID: E. coli bacteremia E. coli spinal abscess ID consulted and guiding abx therapy. Emergent decompression + washout FEN Hypokalemia Replace electrolytes as clinically indicated ICU electrolyte protocol MSK: Osteoporosis Holding meloxicam 7.5 mg p.o. twice daily. PT/OT evaluate and treat Access - 01/15 PICC line Peck: keep per urology. change monthly. Prophylaxis -GI -famotidine -DVT -SCD/SQH Esau Feldman MD Jan 15, 2018 14:16
[2018-01-15] MEDS: TAMSULOSIN HCL 0.4 MG CAP PO SCH (20:14)
[2018-01-16] VITALS (13 sets, daily range): BP systolic 122–142; BP diastolic 57–78; PULSE 78–94; RESP 18–27; TEMP 98.3–99.9; O2SAT 96–100
[2018-01-16] MEDS: ALBUMIN 25% INJ 100 ML IV SCH ×3 (03:32→21:15)
[2018-01-16] MEDS: FUROSEMIDE 40 MG/4 ML VIAL IV PUSH SCH ×3 (03:33→21:15)
[2018-01-16] MEDS: oxyCODONE HCL ORAL CONC 5 MG/0.25 ML SYRINGE PO SCH (03:33)
[2018-01-16] MEDS: cefTAZidime INJ 2,000 MG in SODIUM CHLORIDE 0.9% INJ 100 ML IV SCH ×3 (05:35→21:16)
[2018-01-16] MEDS: ARTIFICIAL TEARS OPTH SOLN 15 ML BTL EACH EYE SCH ×3 (05:36→21:18)
[2018-01-16] MEDS: HEPARIN SODIUM - SQ 10,000 UNITS/ML VIAL SQ SCH ×3 (05:36→21:16)
[2018-01-16] MEDS: POTASSIUM PHOSPHATE/SODIUM PHOSPHATE 250 MG TAB PO SCH ×3 (05:36→17:40)
[2018-01-16 05:47] LABS: HEMATOCRIT 23.4 % (39.0-51.0); MEAN CELL VOLUME 89.7 FL (80.0-100.0); MEAN CORPUSCULAR HEMOGLOBIN 30.9 PG (27.0-34.0); MEAN CORPUSCULAR HGB CONC 34.4 % (32.0-36.0); MEAN PLATELET VOLUME 7.7 FL (7.0-11.0); PLATELET COUNT 382 TH/MM3 (150-450); RED CELL DISTRIBUTION WIDTH 15.1 % (11.6-17.2); WHITE BLOOD COUNT 13.2 TH/MM3 (4.0-11.0)
[2018-01-16 05:57] LABS: BICARBONATE 29.3 MEQ/L (21.0-32.0); CALCIUM 8.5 MG/DL (8.5-10.1); CREATININE 0.83 MG/DL (0.60-1.30)
[2018-01-16] MEDS: POTASSIUM CHLOR 40 MEQ PREMIX 100 ML IV PRN (06:27)
[2018-01-16] MEDS ORDERED: POTASSIUM CHLORIDE 25 MEQ EFFERVESCENT TAB NG ONE (08:00)
[2018-01-16] MEDS: BISACODYL 10 MG SUPP RECTAL SCH (08:28)
[2018-01-16] MEDS: SODIUM CHLORIDE 0.9% FLUSH 10 ML FLUSH IV FLUSH SCH ×2 (08:28→21:15)
--- NOTE | 2018-01-16 08:45 | HHI.CCPN ---
Subjective Remarks/Hospital Course 67-year-old male who underwent a prostate biopsy one week ago, on 12/27/17. On the evening of 12/29/17 he developed fever and chills, low back pain, and lower extremity numbness and paresthesias and muscle spasm. He was seen by his primary care physician and was given medication including muscle relaxant. The symptoms persisted and he returned to his primary care physician on Wednesday, and was given additional medications including Cipro. He awoke on 01/02/2018 with increased lower extremity weakness and numbness, and fell in the shower in the morning, after which he was unable to ambulate or lift his legs off the bed, and continued to experience pain in the lower back. He went to the emergency room at [facility], and was given additional medication injections. He could not lift his legs off the bed or ambulate in the emergency room, and was taken out to his car and lifted into the car and sent home again. He fell in the driveway again trying to get back into the house. He apparently did not urinate for the entire day. He has no complaint of pain which is numbness paresthesias in the upper extremities. No numbness or paresthesias over the chest or abdomen or pelvic region. The MRI of thoracic spine shows severe canal stenosis at T2-3 and T5-6 level with cord compressions, complete or near complete canal obliteration at L2 -3 L3-4 and severe multilevel canal stenosis of the C-spine. The patient is emergently taken to operating room by Dr. Chakraborty. Subjective 01/04: Extubated late afternoon yesterday without any complications. Some sensation bilateral lower extremities. Strength 4-5 bilateral upper extremities. Afebrile. Hemodynamically stable. 01/06: RECONSULT NOTE: reconsulted for respiratory distress. in brief, 67yM with recent prostate biopsy complicated by e. coli bacteremia and lumbar epidural abscess. he was stable and sent to the floor where he developed respiratory distress, fever, tachycardia, tachypnea, diaphoresis. on my exam, patient is in distress, appears toxic. repeat MRI spine demonstrates fluid collections and evidence of spinal compression in cervical, thoracic, and lumbar spinal areas concerning for rapidly ascending abscess with neurologic compromise. also, patient was weak in b/l LEs overnight and now is nearly a complete quad, with only 3/5 distal upper extremity strength left and 1/5 proximal upper extremity strength. 01/07: Persistent septic course. Unable to wean from mechanical ventilation. Infectious Disease service is guiding antimicrobial therapy. 01/08: Back from OR. Vent synchrony much improved with large tidal volume breaths. Urine output acceptable, gas exchange acceptable. 01/09: Continued septic course requiring vasopressors, diffuse general edema. 01/10: Improved control of sepsis after surgical source control. Long recovery, high risk. 01/11: shock improving. now off vasopressors. however, now functionally a quad and minimal if any movement in upper extremities. ileus persists despite aggressive therapy. GI following. pain is a significant problem, on 300 mcg/hr of fentanyl: will need a multimodal approach. 01/12: successful bowel regimen overnight with good bowel movements. however, due to 4L GoLytely, did not achieve optimal diuresis. pain better controlled and decreasing fentanyl requirement. 01/13: continues to make slow improvements. however, NIF worsening to -18 and FVC less than 500. very high risk of failure. will need tracheostomy to progress care. 01/14: s/p trach yesterday. up in stretcher chair. clinically improving. more awake. denies pain. ROS negative. 01/15: continues to improve. net -5L/24h. continues to diurese. daily weight 104kg (admission weight 84kg). Cr still at baseline. OOB to stretcher chair and tolerating t-piece. 01/16: OOB all day yesterday and tolerated t-piece all day. rested on vent overnight. daily weight 97kg and down -7L/24h. hypokalemic this AM despite aggressive replacement. Objective Vital Signs Date Time Temp Pulse Resp B/P (MAP) Pulse Ox O2 Delivery O2 Flow Rate FiO2 01/16/18 07:00 99 Mechanical Ventilator 35 01/16/18 06:00 87 01/16/18 04:33 16 01/16/18 04:00 99.1 142/78 (99) 01/15/18 19:00 6.00 Intake and Output 01/16/18 01/16/18 01/17/18 08:00 16:00 00:00 Intake Total 775 ml Output Total 2200 ml Balance -1425 ml Result Diagram: 01/16/18 0510 01/16/18 0510 Imaging Last Impressions Thoracic Spine MRI 01/03/18 0000 Signed Impressions: Service Date/Time: Wednesday, January 03, 2018 00:38 - CONCLUSION: Multilevel disc abnormalities. Severe canal stenosis at T2-3 and T5-6 with cord compression and mild signal changes in the cord at T2-3 and moderate signal changes within the cord at T5-6. Less severe changes at L2 additional levels as described. Harley Herrera MD Lumbar Spine MRI 01/03/18 0000 Signed Impressions: Service Date/Time: Wednesday, January 03, 2018 00:38 - CONCLUSION: Complete or near complete canal obliteration at L2-3, L3-4 and L4-5 with less severe compromise at L1-2 and T12-L1. Harley Herrera MD Cervical Spine MRI 01/03/18 0000 Signed Impressions: Service Date/Time: Wednesday, January 03, 2018 00:38 - CONCLUSION: Severe multilevel canal stenosis. Findings appear to be most critical at C4-5 and C5-6 where AP canal dimension is reduced to 4-5 mm, however also quite severe at C2-3 and C3-4. Harley Herrera MD Chest X-Ray 01/02/18 [id number] Signed Impressions: Service Date/Time: Tuesday, January 02, 2018 23:11 - CONCLUSION: Mild basilar atelectasis or scarring. Harley Herrera MD Procedures L1 through L5 decompressive laminectomy. Objective Remarks GENERAL: 67-year-old male, trached. SKIN: Warm. HEAD: Normocephalic. EYES: No scleral icterus. No injection or drainage. NECK: Supple, trachea midline. trach in place, no evidence of bleeding. c- collar in place. CARDIOVASCULAR: normal rate, regular rhythm. sinus. No JVD. RESPIRATORY: Equal chest rise. t-piece. no accessory muscle use. GASTROINTESTINAL: Abdomen soft, mildly distended. nontender. no guarding. MUSCULOSKELETAL: Diffuse edema, well perfused limbs. NEURO EXAM: No movement of feet to stimulation. Wiggles right fingers. no proximal motor in upper extremities. RASS -1. A/P Assessment and Plan Assessment: 67-year-old male now postop day 9 status post lumbar laminectomy and decompression for epidural abscess who presents now with rapidly progressive spinal abscess with rapidly worsening myelopathy and neurologic function. Now s/p decompression. shock resolved. now s/p trach. needs aggressive PT/OT and rehab. will start work for weaning from mechanical ventilation. continue aggressive diuresis. OOB to stretcher chair daily Neuro/Psych: Postop day #12 Bilateral L1-2, L2-3, L3 4, L4 5 decompressive semi-laminectomy, medial facetectomy for spinal canal decompression. Depression/anxiety Ascending myelopathy Spinal abscess C-spine revealed cord compression C2 through C4 and C4 through C6. T-spine 2-3/ 5 6 and lumbar spine T throughout L2 with essentially ablation of the cord from L2 through L5. Status post emergent surgery per Dr. Chakraborty / Acetaminophen 650 mg p.o. every 6 hours as needed pain 1-5/fever gabapentin 400 mg TID. oxycodone to 10mg po q4h prn. Morphine sulfate 2 mg IV every 8 as needed pain 6 or 10 Neurochecks CV: Dyslipidemia Severe sepsis septic shock- resolved. off vasopressors good diuresis. continue lasix 40mg iv q8h with albumin diamox 250mg iv x 1 today for contraction alkalosis. Currently on atorvastatin 40 mg p.o. daily. Hospital substitution for rosuvastatin 20 mg p.o. daily s/p hydrocortisone stress dose steroids (therapy completed 01/15) Resp: Acute hypoxic hypercarbic respiratory failure- persistent, slowly improving Vent bundle Nebs Wean FiO2 for goal SPO2 greater than 90% Gas exchange acceptable. daily sbt's OOB to stretcher chair daily GI: Neurogenic ileus- resolving. Acute protein calorie malnutrition- moderate tube feeds. senna/colace, lactulose, miralax, dulcolax supp daily. prn mag citrate if no BM daily. Likely ileus is multifactorial including severe sepsis and postoperative pain, likely compounded by myelopathy and neurogenic component to his ileus Famotidine for GI prophylaxis GI consulted send prealbumin. trend weekly. : BPH Maintain Peck catheter per urology. have discussed with urology: cannot I/O straight cath for now. recommended changing peck catheter Monthly. Currently on tamsulosin 0.4 mg p.o. daily Recent prostate biopsy. Endo: Sliding scale insulin Accu-Cheks to maintain euglycemia/low regimen Renal: Acute kidney injury- resolved Avoid nephrotoxic drugs Monitor urine output Accurate I's and O's Heme: Thrombocytopenia likely secondary to sepsis- resolved. Anemia secondary to acute blood loss Haptoglobin high. LDH normal. Peripheral smear no signs of schistocytes total bilirubin normal. Status post 2 pack platelets 01/04. Followed by hematology no indication for transfusion today. continue to monitor daily. ID: E. coli bacteremia E. coli spinal abscess ID consulted and guiding abx therapy. Emergent decompression + washout FEN Hypokalemia Replace electrolytes as clinically indicated ICU electrolyte protocol MSK: Osteoporosis Holding meloxicam 7.5 mg p.o. twice daily. PT/OT evaluate and treat Access - 01/15 PICC line Peck: keep per urology. change monthly. Prophylaxis -GI -famotidine -DVT -SCD/SQH Dispo: LTAC vs. inpatient rehab. have asked case management to assist with this. Esau Feldman MD Jan 16, 2018 08:45
[2018-01-16] MEDS: FAMOTIDINE 20 MG TAB PO SCH ×2 (08:51→21:16)
[2018-01-16] MEDS: ATORVASTATIN 40 MG TAB PO SCH (08:52)
[2018-01-16] MEDS: DOCUSATE SODIUM 50 MG/SENNA 8.6 MG TAB PO SCH ×2 (08:52→21:16)
[2018-01-16] MEDS: METHOCARBAMOL 500 MG TAB PO SCH ×4 (08:52→21:16)
[2018-01-16] MEDS: GABAPENTIN 250 MG/5 ML UDC NG SCH ×3 (08:53→17:41)
--- NOTE | 2018-01-16 09:47 | HHI.PR ---
Subjective Patient symptoms today Patient seen and examined. Overall doing better, improved UE movement and LE sensation. Objective Vital Signs Vital Signs Date Time Temp Pulse Resp B/P (MAP) Pulse Ox O2 Delivery O2 Flow Rate FiO2 01/16/18 07:00 99 Mechanical Ventilator 35 01/16/18 06:00 87 01/16/18 05:25 99 40 01/16/18 04:33 16 01/16/18 04:00 40 01/16/18 04:00 99.1 89 18 142/78 (99) 100 01/16/18 04:00 87 01/16/18 03:37 99 40 01/16/18 02:00 87 01/16/18 00:00 40 01/16/18 00:00 98.3 84 18 135/63 (87) 100 01/16/18 00:00 78 01/15/18 23:59 100 40 01/15/18 22:00 40 01/15/18 22:00 83 01/15/18 21:59 99 40 01/15/18 20:00 80 01/15/18 20:00 35 01/15/18 20:00 98.3 82 22 127/72 (90) 100 01/15/18 19:00 99 T-Piece 6.00 35 01/15/18 18:00 78 01/15/18 16:00 98.8 82 19 138/69 (92) 99 01/15/18 16:00 40 01/15/18 16:00 81 01/15/18 14:00 84 01/15/18 12:00 85 01/15/18 12:00 40 01/15/18 12:00 99.2 87 25 125/61 (82) 98 01/15/18 11:53 99 T-piece 6.00 35 01/15/18 10:34 40 01/15/18 10:00 89 01/15/18 09:50 99 40 01/15/18 09:50 40 Intake & Output 01/16/18 01/16/18 07:00 19:00 Intake Total 775 ml Output Total 5800 ml Balance -5025 ml Tube Feeding 655 ml Tube Irrigant 120 ml Output Urine Total 5600 ml Stool Total 200 ml Result Diagram: 01/16/1850901/16/18 0510 Objective Remarks Peck with clear urine Medications and IVs Current Medications Medications (Trade) Dose Ordered Sig/Kaveh Route Start Time Stop Time Status Last Admin (Robaxin) 500 mg QID PO 01/03/18 09:00 01/16/18 08:52 (Flomax) 0.4 mg HS PO 01/03/18 21:00 01/15/18 20:14 (Lipitor) 40 mg DAILY PO 01/03/18 09:00 01/16/18 08:52 (NS Flush) 2 ml UNSCH PRN IV FLUSH 01/03/18 05:00 (NS Flush) 2 ml BID IV FLUSH 01/03/18 09:00 01/15/18 20:14 (Tylenol) 650 mg Q6H PRN PO 01/03/18 05:00 01/12/18 16:29 (Zofran Inj) 4 mg Q6H PRN IV PUSH 01/03/18 05:00 01/05/18 15:50 (Roxana-Colace) 1 tab BID PO 01/03/18 09:00 01/16/18 08:52 (Tears Naturale Opth Soln) 1 drop Q8HR EACH EYE 01/03/18 14:00 01/16/18 05:36 (Albuterol Neb) 2.5 mg Q2HR NEB PRN NEB 01/03/18 10:00 01/09/18 11:30 (Pepcid) 20 mg BID PO 01/04/18 21:00 01/16/18 08:51 (K-Phos Neutral) 250 mg Q6HR PO 01/05/18 18:00 01/16/18 05:36 (Morphine Inj) 2 mg Q4H PRN IV PUSH 01/05/18 15:45 01/14/18 22:10 Ceftazidime 2000 mg/Sodium Chloride 100 ml @ 200 mls/hr Q8H IV 01/06/18 14:00 01/16/18 05:35 (Dulcolax Supp) 10 mg DAILY RECTAL 01/09/18 16:15 01/11/18 08:07 Potassium Chloride 100 ml @ 50 mls/hr Q2H PRN IV 01/12/18 08:30 01/16/18 06:27 Potassium Chloride 100 ml @ 50 mls/hr Q2H PRN IV 01/12/18 08:30 (K-Lyte Cl Eff) 50 meq UNSCH PRN PO 01/12/18 08:30 01/15/18 17:45 Potassium Chloride 100 ml @ 25 mls/hr UNSCH PRN IV 01/12/18 08:30 01/15/18 21:42 Potassium Chloride 100 ml @ 50 mls/hr Q2H PRN IV 01/12/18 08:30 Magnesium Sulfate 4 gm/Sodium Chloride 100 ml @ 50 mls/hr UNSCH PRN IV 01/12/18 08:30 01/16/18 09:40 (Mag-Ox) 800 mg UNSCH PRN PO 01/12/18 08:30 Magnesium Sulfate 2 gm/Sodium Chloride 100 ml @ 50 mls/hr UNSCH PRN IV 01/12/18 08:30 (K-Phos) 2,000 mg Q4H PRN PO 01/12/18 08:30 Sodium Phosphate 30 mmol/Sodium Chloride 250 ml @ 42 mls/hr UNSCH PRN IV 01/12/18 08:30 (K-Phos) 2,000 mg UNSCH PRN PO/TUBE 01/12/18 08:30 Potassium Phosphate 30 mmol/ Sodium Chloride 260 ml @ 42 mls/hr UNSCH PRN IV 01/12/18 08:30 (Miralax) 17 gm BID PO 01/12/18 09:00 Future Hold 01/14/18 08:20 (Lactulose Liq) 30 ml BID PO 01/12/18 09:00 Future Hold 01/13/18 20:48 (Heparin Inj) 5,000 units Q8HR SQ 01/13/18 14:00 01/16/18 05:36 (Lasix Inj) 40 mg Q8H IV PUSH 01/14/18 12:00 01/16/18 03:33 Albumin Human 100 ml @ 60 mls/hr Q8H IV 01/14/18 12:00 01/16/18 03:32 (Heparin Central Flush) See Protocol DAILY IV FLUSH 01/15/18 09:00 (Heparin Central Flush) See Protocol UNSCH PRN IV FLUSH 01/14/18 21:15 (NS Flush) UNSCH PRN IV FLUSH 01/14/18 21:15 (Roxicodone Intensol Liq) 10 mg Q6H PRN PO 01/16/18 10:00 (Neurontin Liq) 300 mg TID NG 01/16/18 09:00 01/16/18 08:53 Assessment and Plan Assessment and Plan -Maintain peck catheter in place until more awake/mobile -Will follow Walter Juarez MD Jan 16, 2018 09:47
--- NOTE | 2018-01-16 10:20 | HHI.NSPN ---
(Marina Beavers) Note Status Status: Progress Note (Marina Beavers) Interval History Interval History s/p C2-C6 decompressive laminectomy, T2-T6 decompressive laminectomy on Jan 06, 2018 for severe cervical and thoracic disc disease with stenosis and myelopathy. Also [id number] decompressive semi-laminectomy, evacuation thoracic epidural abscess, and revision L2-3, L3 4, L4 5 decompressive semi-laminectomy with evacuation lumbar epidural abscess and epidural hematoma on Jan 07, 2018 for spinal epidural abscess, thoracic disc disease with myelopathy, lumbar canal stenosis, postoperative lumbar epidural hematoma 01/15: doing well, family at beside, remains very weak in extremities 01/16: sitting up in stretcher chair, alert, nursing reports increased sensation in lower extremities, no significant change to motor function. (Marina Beavers) Labs, Micro, & Vital Signs Results Date Time Temp Pulse Resp B/P (MAP) Pulse Ox O2 Delivery O2 Flow Rate FiO2 01/16/18 07:00 99 Mechanical Ventilator 35 01/16/18 06:00 87 01/16/18 05:25 99 40 01/16/18 04:33 16 01/16/18 04:00 40 01/16/18 04:00 99.1 89 18 142/78 (99) 100 01/16/18 04:00 87 01/16/18 03:37 99 40 01/16/18 02:00 87 01/16/18 00:00 40 01/16/18 00:00 98.3 84 18 135/63 (87) 100 01/16/18 00:00 78 01/15/18 23:59 100 40 01/15/18 22:00 40 01/15/18 22:00 83 01/15/18 21:59 99 40 01/15/18 20:00 80 01/15/18 20:00 35 01/15/18 20:00 98.3 82 22 127/72 (90) 100 01/15/18 19:00 99 T-Piece 6.00 35 01/15/18 18:00 78 01/15/18 16:00 98.8 82 19 138/69 (92) 99 01/15/18 16:00 40 01/15/18 16:00 81 01/15/18 14:00 84 01/15/18 12:00 85 01/15/18 12:00 40 01/15/18 12:00 99.2 87 25 125/61 (82) 98 01/15/18 11:53 99 T-piece 6.00 35 01/15/18 10:34 40 Constitutional Vital Signs Date Time Temp Pulse Resp B/P (MAP) Pulse Ox O2 Delivery O2 Flow Rate FiO2 01/16/18 07:00 99 Mechanical Ventilator 35 01/16/18 06:00 87 01/16/18 05:25 99 40 01/16/18 04:33 16 01/16/18 04:00 40 01/16/18 04:00 99.1 89 18 142/78 (99) 100 01/16/18 04:00 87 01/16/18 03:37 99 40 01/16/18 02:00 87 01/16/18 00:00 40 01/16/18 00:00 98.3 84 18 135/63 (87) 100 01/16/18 00:00 78 01/15/18 23:59 100 40 01/15/18 22:00 40 01/15/18 22:00 83 01/15/18 21:59 99 40 01/15/18 20:00 80 01/15/18 20:00 35 01/15/18 20:00 98.3 82 22 127/72 (90) 100 01/15/18 19:00 99 T-Piece 6.00 35 01/15/18 18:00 78 01/15/18 16:00 98.8 82 19 138/69 (92) 99 01/15/18 16:00 40 01/15/18 16:00 81 01/15/18 14:00 84 01/15/18 12:00 85 01/15/18 12:00 40 01/15/18 12:00 99.2 87 25 125/61 (82) 98 01/15/18 11:53 99 T-piece 6.00 35 01/15/18 10:34 40 (Marina Beavers) Review of Systems ROS Limitations: Clinical Condition (Marina Beavers) Physical Exam General: Sitting up in stretcher chair. In no acute distress. HEENT: Normocephalic. Nonicteric sclera. Neck: [place] J cervical collar in place. 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 Neuro: Awake & alert. Nonverbal due to trach. Nods to questions. CN: pupils equal, facial motor symmetric at rest. Heart: regular rate rhythm (Marina Beavers) Medications Current Medications Current Medications Medications (Trade) Dose Ordered Sig/Kaveh Route PRN Reason Start Time Stop Time Status Last Admin Dose Admin Methocarbamol (Robaxin) 500 mg QID PO 01/03/18 09:00 01/16/18 08:52 Tamsulosin HCl (Flomax) 0.4 mg HS PO 01/03/18 21:00 01/15/18 20:14 Atorvastatin Calcium (Lipitor) 40 mg DAILY PO 01/03/18 09:00 01/16/18 08:52 Sodium Chloride (NS Flush) 2 ml UNSCH PRN IV FLUSH FLUSH AFTER USING IV ACCESS 01/03/18 05:00 Sodium Chloride (NS Flush) 2 ml BID IV FLUSH 01/03/18 09:00 01/15/18 20:14 Acetaminophen (Tylenol) 650 mg Q6H PRN PO PAIN 1-5 AND/OR FEVER >101F 01/03/18 05:00 01/12/18 16:29 Ondansetron HCl (Zofran Inj) 4 mg Q6H PRN IV PUSH NAUSEA OR VOMITING 01/03/18 05:00 01/05/18 15:50 Senna/Docusate Sodium (Roxana-Colace) 1 tab BID PO 01/03/18 09:00 01/16/18 08:52 Artificial Tears (Tears Naturale Opth Soln) 1 drop Q8HR EACH EYE 01/03/18 14:00 01/16/18 05:36 Albuterol Sulfate (Albuterol Neb) 2.5 mg Q2HR NEB PRN NEB dyspnea 01/03/18 10:00 01/09/18 11:30 Famotidine (Pepcid) 20 mg BID PO 01/04/18 21:00 01/16/18 08:51 Potassium Phos/ Sodium Phos (K-Phos Neutral) 250 mg Q6HR PO 01/05/18 18:00 01/16/18 05:36 Morphine Sulfate (Morphine Inj) 2 mg Q4H PRN IV PUSH pain 7-10 01/05/18 15:45 01/14/18 22:10 Ceftazidime 2000 mg/Sodium Chloride 100 ml @ 200 mls/hr Q8H IV 01/06/18 14:00 01/16/18 05:35 Bisacodyl (Dulcolax Supp) 10 mg DAILY RECTAL 01/09/18 16:15 01/11/18 08:07 Potassium Chloride 100 ml @ 50 mls/hr Q2H PRN IV For Potassium 2.8 - 3.2 mEq/L 01/12/18 08:30 01/16/18 06:27 Potassium Chloride 100 ml @ 50 mls/hr Q2H PRN IV For Potassium 2.8 - 3.2 mEq/L 01/12/18 08:30 Potassium Bicarb/ Potassium Chloride (K-Lyte Cl Eff) 50 meq UNSCH PRN PO For Potassium 3.3 - 3.5 mEq/L 01/12/18 08:30 01/15/18 17:45 Potassium Chloride 100 ml @ 25 mls/hr UNSCH PRN IV For Potassium 3.3 - 3.5 mEq/L 01/12/18 08:30 01/15/18 21:42 Potassium Chloride 100 ml @ 50 mls/hr Q2H PRN IV For Potassium 3.3 - 3.5 mEq/L 01/12/18 08:30 Magnesium Sulfate 4 gm/Sodium Chloride 100 ml @ 50 mls/hr UNSCH PRN IV For Magnesium 0.9 - 1.1 mg/dL 01/12/18 08:30 01/16/18 09:40 Magnesium Oxide (Mag-Ox) 800 mg UNSCH PRN PO For Magnesium 1.2 - 1.6 mg/dL 01/12/18 08:30 Magnesium Sulfate 2 gm/Sodium Chloride 100 ml @ 50 mls/hr UNSCH PRN IV For Magnesium 1.2 - 1.6 mg/dL 01/12/18 08:30 Potassium Phosphate (K-Phos) 2,000 mg Q4H PRN PO For Phosphorus < 2.5 mg/dL 01/12/18 08:30 Sodium Phosphate 30 mmol/Sodium Chloride 250 ml @ 42 mls/hr UNSCH PRN IV For Phosphorus < 2.5 mg/dL 01/12/18 08:30 Potassium Phosphate (K-Phos) 2,000 mg UNSCH PRN PO/TUBE SEE LABEL COMMENTS 01/12/18 08:30 Potassium Phosphate 30 mmol/ Sodium Chloride 260 ml @ 42 mls/hr UNSCH PRN IV SEE LABEL COMMENTS 01/12/18 08:30 Polyethylene Glycol (Miralax) 17 gm BID PO 01/12/18 09:00 Future Hold 01/14/18 08:20 Lactulose (Lactulose Liq) 30 ml BID PO 01/12/18 09:00 Future Hold 01/13/18 20:48 Heparin Sodium (Porcine) (Heparin Inj) 5,000 units Q8HR SQ 01/13/18 14:00 01/16/18 05:36 Furosemide (Lasix Inj) 40 mg Q8H IV PUSH 01/14/18 12:00 01/16/18 03:33 Albumin Human 100 ml @ 60 mls/hr Q8H IV 01/14/18 12:00 01/16/18 03:32 Heparin Sodium (Porcine) (Heparin Central Flush) See Protocol DAILY IV FLUSH 01/15/18 09:00 Heparin Sodium (Porcine) (Heparin Central Flush) See Protocol UNSCH PRN IV FLUSH SEE PROTOCOL TABLE 01/14/18 21:15 Sodium Chloride (NS Flush) UNSCH PRN IV FLUSH SEE PROTOCOL TABLE 01/14/18 21:15 Oxycodone HCl (Roxicodone Intensol Liq) 10 mg Q6H PRN PO pain 1-6 01/16/18 10:00 Gabapentin (Neurontin Liq) 300 mg TID NG 01/16/18 09:00 01/16/18 08:53 (Marina Beavers) Medical Decision Making MDM Remarks 67 y/o male s/p C2-C6 decompressive laminectomy, T2-T6 decompressive laminectomy on Jan 06, 2018 for severe cervical and thoracic disc disease with stenosis and myelopathy. Also [id number] decompressive semi-laminectomy, evacuation thoracic epidural abscess, and revision L2-3, L3 4, L4 5 decompressive semi-laminectomy with evacuation lumbar epidural abscess and epidural hematoma on Jan 07, 2018 for spinal epidural abscess, thoracic disc disease with myelopathy, lumbar canal stenosis, postoperative lumbar epidural hematoma (Marina Beavers) Plan Plan Remarks cont antibiotic tx, cont critical care cont supportive care therapy and rehab efforts (Marina Beavers) Attending Statement The exam, history, and the medical decision-making described in the above note were completed with the assistance of the mid-level provider. I reviewed and agree with the findings presented. I attest that I had a [id number] encounter with the patient on the same day, and personally performed and documented my assessment and findings in the medical record. (Dakota Hou MD) Marina Beavers Jan 16, 2018 10:20 Dakota Hou MD Jan 18, 2018 17:55
[2018-01-16] MEDS: TAMSULOSIN HCL 0.4 MG CAP PO SCH (21:00)
[2018-01-17] VITALS (14 sets, daily range): BP systolic 112–150; BP diastolic 64–82; PULSE 78–106; RESP 16–26; TEMP 98–99.7; O2SAT 96–100
[2018-01-17] MEDS: POTASSIUM CHLOR 40 MEQ PREMIX 100 ML IV PRN ×2 (01:03→20:24)
[2018-01-17] MEDS: POTASSIUM CHLORIDE 25 MEQ EFFERVESCENT TAB NG SCH ×2 (01:34→04:10)
[2018-01-17] MEDS: POTASSIUM PHOSPHATE/SODIUM PHOSPHATE 250 MG TAB PO SCH ×4 (01:35→17:49)
[2018-01-17] MEDS: ALBUMIN 25% INJ 100 ML IV SCH ×3 (04:10→20:23)
[2018-01-17] MEDS: FUROSEMIDE 40 MG/4 ML VIAL IV PUSH SCH ×3 (04:11→20:23)
[2018-01-17 07:07] LABS: HEMATOCRIT 22.5 % (39.0-51.0); HEMOGLOBIN 7.7 GM/DL (13.0-17.0); MEAN CELL VOLUME 89.2 FL (80.0-100.0); MEAN CORPUSCULAR HEMOGLOBIN 30.5 PG (27.0-34.0); MEAN CORPUSCULAR HGB CONC 34.2 % (32.0-36.0); MEAN PLATELET VOLUME 7.8 FL (7.0-11.0); PLATELET COUNT 329 TH/MM3 (150-450); RED BLOOD COUNT 2.52 MIL/MM3 (4.50-5.90); RED CELL DISTRIBUTION WIDTH 14.7 % (11.6-17.2); WHITE BLOOD COUNT 13.1 TH/MM3 (4.0-11.0)
[2018-01-17 07:13] LABS: BICARBONATE 27.9 MEQ/L (21.0-32.0); CALCIUM 8.5 MG/DL (8.5-10.1); CREATININE 0.76 MG/DL (0.60-1.30)
[2018-01-17] MEDS: FREE WATER G-TUBE SCH ×3 (07:30→17:50)
[2018-01-17] MEDS: cefTAZidime INJ 2,000 MG in SODIUM CHLORIDE 0.9% INJ 100 ML IV SCH ×3 (07:46→22:59)
[2018-01-17] MEDS: HEPARIN SODIUM - SQ 10,000 UNITS/ML VIAL SQ SCH ×3 (07:46→22:59)
[2018-01-17] MEDS: ARTIFICIAL TEARS OPTH SOLN 15 ML BTL EACH EYE SCH ×3 (07:47→22:59)
--- NOTE | 2018-01-17 07:55 | HHI.CCPN ---
Subjective Remarks/Hospital Course 67-year-old male who underwent a prostate biopsy one week ago, on 12/27/17. On the evening of 12/29/17 he developed fever and chills, low back pain, and lower extremity numbness and paresthesias and muscle spasm. He was seen by his primary care physician and was given medication including muscle relaxant. The symptoms persisted and he returned to his primary care physician on Wednesday, and was given additional medications including Cipro. He awoke on 01/02/2018 with increased lower extremity weakness and numbness, and fell in the shower in the morning, after which he was unable to ambulate or lift his legs off the bed, and continued to experience pain in the lower back. He went to the emergency room at [facility], and was given additional medication injections. He could not lift his legs off the bed or ambulate in the emergency room, and was taken out to his car and lifted into the car and sent home again. He fell in the driveway again trying to get back into the house. He apparently did not urinate for the entire day. He has no complaint of pain which is numbness paresthesias in the upper extremities. No numbness or paresthesias over the chest or abdomen or pelvic region. The MRI of thoracic spine shows severe canal stenosis at T2-3 and T5-6 level with cord compressions, complete or near complete canal obliteration at L2 -3 L3-4 and severe multilevel canal stenosis of the C-spine. The patient is emergently taken to operating room by Dr. Chakraborty. Subjective 01/04: Extubated late afternoon yesterday without any complications. Some sensation bilateral lower extremities. Strength 4-5 bilateral upper extremities. Afebrile. Hemodynamically stable. 01/06: RECONSULT NOTE: reconsulted for respiratory distress. in brief, 67yM with recent prostate biopsy complicated by e. coli bacteremia and lumbar epidural abscess. he was stable and sent to the floor where he developed respiratory distress, fever, tachycardia, tachypnea, diaphoresis. on my exam, patient is in distress, appears toxic. repeat MRI spine demonstrates fluid collections and evidence of spinal compression in cervical, thoracic, and lumbar spinal areas concerning for rapidly ascending abscess with neurologic compromise. also, patient was weak in b/l LEs overnight and now is nearly a complete quad, with only 3/5 distal upper extremity strength left and 1/5 proximal upper extremity strength. 01/07: Persistent septic course. Unable to wean from mechanical ventilation. Infectious Disease service is guiding antimicrobial therapy. 01/08: Back from OR. Vent synchrony much improved with large tidal volume breaths. Urine output acceptable, gas exchange acceptable. 01/09: Continued septic course requiring vasopressors, diffuse general edema. 01/10: Improved control of sepsis after surgical source control. Long recovery, high risk. 01/11: shock improving. now off vasopressors. however, now functionally a quad and minimal if any movement in upper extremities. ileus persists despite aggressive therapy. GI following. pain is a significant problem, on 300 mcg/hr of fentanyl: will need a multimodal approach. 01/12: successful bowel regimen overnight with good bowel movements. however, due to 4L GoLytely, did not achieve optimal diuresis. pain better controlled and decreasing fentanyl requirement. 01/13: continues to make slow improvements. however, NIF worsening to -18 and FVC less than 500. very high risk of failure. will need tracheostomy to progress care. 01/14: s/p trach yesterday. up in stretcher chair. clinically improving. more awake. denies pain. ROS negative. 01/15: continues to improve. net -5L/24h. continues to diurese. daily weight 104kg (admission weight 84kg). Cr still at baseline. OOB to stretcher chair and tolerating t-piece. 01/16: OOB all day yesterday and tolerated t-piece all day. rested on vent overnight. daily weight 97kg and down -7L/24h. hypokalemic this AM despite aggressive replacement. 01/17: hypokalemia still a problem. adequate diuresis. still not back to dry weight yet. t-piece x >24h. Objective Vital Signs Date Time Temp Pulse Resp B/P (MAP) Pulse Ox O2 Delivery O2 Flow Rate FiO2 01/17/18 02:00 84 01/17/18 00:00 99.1 23 120/67 (84) 100 01/16/18 22:08 T-piece 6.00 35 Result Diagram: 01/17/18 0630 01/17/18 0630 Imaging Last Impressions Thoracic Spine MRI 01/03/18 0000 Signed Impressions: Service Date/Time: Wednesday, January 03, 2018 00:38 - CONCLUSION: Multilevel disc abnormalities. Severe canal stenosis at T2-3 and T5-6 with cord compression and mild signal changes in the cord at T2-3 and moderate signal changes within the cord at T5-6. Less severe changes at L2 additional levels as described. Harley Herrera MD Lumbar Spine MRI 01/03/18 0000 Signed Impressions: Service Date/Time: Wednesday, January 03, 2018 00:38 - CONCLUSION: Complete or near complete canal obliteration at L2-3, L3-4 and L4-5 with less severe compromise at L1-2 and T12-L1. Harley Herrera MD Cervical Spine MRI 01/03/18 0000 Signed Impressions: Service Date/Time: Wednesday, January 03, 2018 00:38 - CONCLUSION: Severe multilevel canal stenosis. Findings appear to be most critical at C4-5 and C5-6 where AP canal dimension is reduced to 4-5 mm, however also quite severe at C2-3 and C3-4. Harley Herrera MD Chest X-Ray 01/02/18 2304 Signed Impressions: Service Date/Time: Tuesday, January 02, 2018 23:11 - CONCLUSION: Mild basilar atelectasis or scarring. Harley Herrera MD Procedures L1 through L5 decompressive laminectomy. Objective Remarks GENERAL: 67-year-old male, trached. SKIN: Warm. HEAD: Normocephalic. EYES: No scleral icterus. No injection or drainage. NECK: Supple, trachea midline. trach in place, no evidence of bleeding. c- collar in place. CARDIOVASCULAR: normal rate, regular rhythm. sinus. No JVD. RESPIRATORY: Equal chest rise. t-piece. no accessory muscle use. GASTROINTESTINAL: Abdomen soft, mildly distended. nontender. no guarding. MUSCULOSKELETAL: Diffuse edema, well perfused limbs. NEURO EXAM: No movement of feet to stimulation. Wiggles right fingers. no proximal motor in upper extremities. RASS -1. A/P Assessment and Plan Assessment: 67-year-old male now postop day 10 status post lumbar laminectomy and decompression for epidural abscess who presents now with rapidly progressive spinal abscess with rapidly worsening myelopathy and neurologic function. Now s/p decompression. shock resolved. now s/p trach. needs aggressive PT/OT and rehab. will start work for weaning from mechanical ventilation. continue aggressive diuresis. OOB to stretcher chair daily Neuro/Psych: Postop day #13 Bilateral L1-2, L2-3, L3 4, L4 5 decompressive semi-laminectomy, medial facetectomy for spinal canal decompression. Depression/anxiety Ascending myelopathy Spinal abscess C-spine revealed cord compression C2 through C4 and C4 through C6. T-spine 2-3/ 5 6 and lumbar spine T throughout L2 with essentially ablation of the cord from L2 through L5. Status post emergent surgery per Dr. Chakraborty 01/03 Acetaminophen 650 mg p.o. every 6 hours as needed pain 1-5/fever gabapentin 300 mg TID. oxycodone to 10mg po q4h prn. Morphine sulfate 2 mg IV every 8 as needed pain 6 or 10 Neurochecks CV: Dyslipidemia Severe sepsis- resolved. septic shock- resolved. off vasopressors good diuresis. continue lasix 40mg iv q8h with albumin diamox 500mg iv x 1 today for contraction alkalosis. Currently on atorvastatin 40 mg p.o. daily. Hospital substitution for rosuvastatin 20 mg p.o. daily s/p hydrocortisone stress dose steroids (therapy completed 01/15) Resp: Acute hypoxic hypercarbic respiratory failure- resolving Vent bundle Nebs Wean FiO2 for goal SPO2 greater than 90% Gas exchange acceptable. daily sbt's OOB to stretcher chair daily PT/OT/Speech therapy GI: Neurogenic ileus- resolving. Acute protein calorie malnutrition- moderate tube feeds. senna/colace, lactulose, miralax, dulcolax supp daily. prn mag citrate if no BM daily. Likely ileus is multifactorial including severe sepsis and postoperative pain, likely compounded by myelopathy and neurogenic component to his ileus Famotidine for GI prophylaxis GI consulted trend prealbumin weekly. : BPH Maintain Peck catheter per urology. have discussed with urology: cannot I/O straight cath for now. recommended changing peck catheter Monthly. Currently on tamsulosin 0.4 mg p.o. daily Recent prostate biopsy. Endo: Sliding scale insulin Accu-Cheks to maintain euglycemia/low regimen Renal: Acute kidney injury- resolved Avoid nephrotoxic drugs Monitor urine output Accurate I's and O's Heme: Thrombocytopenia likely secondary to sepsis- resolved. Anemia secondary to acute blood loss Haptoglobin high. LDH normal. Peripheral smear no signs of schistocytes total bilirubin normal. Status post 2 pack platelets 01/04. Followed by hematology no indication for transfusion today. continue to monitor daily. ID: E. coli bacteremia E. coli spinal abscess ID consulted and guiding abx therapy. Emergent decompression + washout FEN Hypokalemia- severe, persistent. Replace electrolytes as clinically indicated ICU electrolyte protocol MSK: Osteoporosis Holding meloxicam 7.5 mg p.o. twice daily. PT/OT evaluate and treat Access - 01/15 PICC line Peck: keep per urology. change monthly. Prophylaxis -GI -famotidine -DVT -SCD/SQH Dispo: LTAC vs. inpatient rehab. have asked case management to assist with this. Esau Feldman MD Jan 17, 2018 07:55
[2018-01-17] MEDS ORDERED: POTASSIUM CHLORIDE 25 MEQ EFFERVESCENT TAB PO ONE (08:00)
[2018-01-17] MEDS: LACTULOSE SYRUP 20 GM/30 ML CUP PO SCH ×2 (08:40→20:23)
[2018-01-17] MEDS: DOCUSATE SODIUM 50 MG/SENNA 8.6 MG TAB PO SCH ×2 (08:40→20:23)
[2018-01-17] MEDS: FAMOTIDINE 20 MG TAB PO SCH ×2 (08:40→20:23)
[2018-01-17] MEDS: GABAPENTIN 250 MG/5 ML UDC NG SCH ×3 (08:41→17:49)
[2018-01-17] MEDS: POLYETHYLENE GLYCOL 17 GM PKG PO SCH ×2 (08:41→20:23)
[2018-01-17] MEDS: SODIUM CHLORIDE 0.9% FLUSH 10 ML FLUSH IV FLUSH SCH ×2 (08:42→20:23)
[2018-01-17] MEDS: ATORVASTATIN 40 MG TAB PO SCH (08:42)
[2018-01-17] MEDS: METHOCARBAMOL 500 MG TAB PO SCH ×4 (08:43→20:23)
[2018-01-17] MEDS: BISACODYL 10 MG SUPP RECTAL SCH (08:43)
--- NOTE | 2018-01-17 09:41 | HHI.NSPN ---
(Tigre EstradaErinn PANCHALP) History Chief Complaint: Pain to the extremities (Tigre EstradaErinn PANCHALP) Interval History 01/03: 67-year-old male who underwent a prostate biopsy one week ago, on . He states that on the evening of 12/29/17 on into the morning of 12/30/17, he developed fever and chills, low back pain, and lower extremity numbness and paresthesias and muscle spasm. He was seen by his primary care physician and was given medication including muscle relaxant. The symptoms persisted and he returned to his primary care physician on Wednesday , 01/01/18 and was given additional medications including Cipro. He awoke on 01/02/2018 with increased lower extremity weakness and numbness, and fell in the shower in the morning, after which he was unable to ambulate or lift his legs off the bed, and continued to experience pain in the lower back. He went to the emergency room at [facility], and was given additional medication injections. He states that he could not lift his legs off the bed or ambulate in the emergency room, and was taken out to his car and lifted into the car and sent home again. He fell in the driveway again trying to get back into the house. He apparently did not urinate for the entire day. He has no complaint of pain which is numbness paresthesias in the upper extremities. No numbness or paresthesias over the chest or abdomen or pelvic region. The patient was emergently taken to the operating room for a bilateral L1-2, L2- 3, L3 4, L4 5 decompressive semi-laminectomy, medial facetectomy for spinal canal decompression. Post-operatively the patient remained intubated and was admitted to [facility] for further care and monitoring. 01/04: When seen this afternoon the patient has been extubated. He is awake and alert and readily interacts. He does report pain to the neck and the lower back. He has no numbness, tingling or weakness to the upper extremities but does say he will have pain shooting down them if he moves wrong. He denies any pain to the lower extremities but does have numbness to both feet and about the only movement he is able to do is move his knees medially and laterally. Upon examination the patient's sensorimotor exam is improved from pre-operatively 01/05: The patient desaturated this morning and a Halicat was initiated. From the EMR Nursing reported that the patient was lethargic and difficult to arouse. His sat was in the 80s and he did have a fever of 102F. He was therefore transferred back to [facility]. A chest x-ray demonstrated a left lower lobe consolidation. His blood, urine and lumbar spine wound cultures have all come back positive for Escherichia coli. When seen this afternoon the patient was awake, alert and readily interacted. He was visiting with his significant other. His upper extremity examination was variable with some improvement and some decline. His sensation and motor strength to the lower extremities had declined. The surgical incision looked good upon examination and the GUIDO drain was removed. 01/06: This afternoon the patient is on a nonrebreather mask when seen, he is tachypneic and laboured. He says he has some low back pain, especially at night. He denies any neck pain or headache. He has worsening of his muscle strength to the upper extremities and it remains poor to the lower. 01/07: The patient was urgently intubated yesterday evening for worsening respiratory status and remains so this morning. He underwent emergent surgery for decompression of the cervical and thoracic spines. Post-operatively he returned to [facility]. He is sedated with propofol. He has vasopressin and norepinephrine infusing for blood pressure support. He is obtunded but sedated and there is no response to any stimulation. 01/08: Patient sedated with Diprivan and fentanyl drips. He was biting the tube and was also recently placed on Versed. He is not opening eyes or following commands. He remains sedated for vent synchrony. 01/09: Pt sedated with Diprivan and Fentanyl drips. He nods his head slightly to questions. Intubated a/c. RN reports all bandages are dry with only mild post op staining. 01/10: When seen the patient is lethargic. He is sedated with propofol and midazolam. He continues to be intubated and mechanically ventilated. His significant other stated that the patient was awake a few minutes ago. When he called the patient's name he opened both eyes. He did blink to command. There was no motor response to any stimulation. 01/11: This morning the patient is drowsy when seen. He continues to be sedated with propofol and midazolam. He is still intubated and mechanically ventilated. His eyes open to voice. He does not move the extremities to any stimulation even though his sedation is held. 01/12: The patient is drowsy. He is on ketamine for sedation and pain control. He remains intubated and mechanically ventilated. He opened his eyes to voice. He indicated he had no pain. He weakly gripped with the right hand to command and gave a thumbs up. His automatic profile sander operator was strong when local noxious stimulation was applied. He had no response with the other extremities to local noxious stimulation. 01/14: When seen the patient is awake. He has been trached and mechanically ventilated. Nursing does say that a CPAP trial may be done today. He nods appropriately. He denies any pain to the neck or back. Upon examination he is able to give a weak hand grasp bilaterally and has muscle contractions to the upper extremities when asked to lift them off the bed. He has no response to noxious stimulation of the lower extremities. He has numbness to the left lower but says the right lower and both upper extremities feel normal. 01/15: doing well, family at beside, remains very weak in extremities 01/16: sitting up in stretcher chair, alert, nursing reports increased sensation in lower extremities, no significant change to motor function. 01/17: The patient is awake and alert in bed watching TV and visiting with his significant other. He is trached and on a T-piece. He does try to verbalise some and nods appropriately. He does have pain to the extremities as well as some decreased sensation. He is moving the upper extremities spontaneously and has trace contraction of the lower extremities. (Tigre Estrada) Exam Results 01/15/18 01/15/18 01/16/18 01/16/18 01/17/18 01/17/18 06:00 18:00 06:00 18:00 06: 18:00 Intake Total 2375 ml 752 ml 775 ml 2142 ml Output Total 8165 ml 3450 ml 5800 ml 5925 ml Balance -5790 ml -2698 ml -5025 ml -3783 ml IV Total 400 ml 40 ml 400 ml Tube Feeding 1175 ml 462 ml 655 ml 1402 ml Tube Irrigant 800 ml 250 ml 120 ml 340 ml Output Urine Total 7725 ml 3450 ml 5600 ml 5400 ml Stool Total 425 ml 0 ml 200 ml 525 ml Gastric Drainage Total 0 ml 0 ml Drainage Total 15 ml Vital Signs Date Time Temp Pulse Resp B/P (MAP) Pulse Ox O2 Delivery O2 Flow Rate FiO2 01/17/18 08:56 97 T-piece 35 01/17/18 06:00 84 01/17/18 04:00 98.9 80 16 134/76 (95) 100 01/17/18 04:00 80 01/17/18 02:00 84 01/17/18 00:00 78 01/17/18 00:00 99.1 78 23 120/67 (84) 100 01/16/18 22:08 98 T-piece 6.00 35 01/16/18 22:00 94 01/16/18 20:00 86 01/16/18 20:00 99.8 86 25 122/57 (78) 98 01/16/18 19:00 94 T-Piece 35 01/16/18 16:00 99.2 90 26 136/76 (96) 97 01/16/18 12:00 99.1 91 27 122/66 (84) 96 01/16/18 09:45 99 T-piece 6.00 35 01/16/18 08:00 40 01/16/18 08:00 99.9 81 25 141/76 (97) 100 01/16/18 07:00 99 Mechanical Ventilator 35 01/16/18 06:00 87 01/16/18 05:25 99 40 01/16/18 04:33 16 01/16/18 04:00 40 01/16/18 04:00 99.1 89 18 142/78 (99) 100 01/16/18 04:00 87 01/16/18 03:37 99 40 01/16/18 02:00 87 01/16/18 00:00 40 01/16/18 00:00 98.3 84 18 135/63 (87) 100 01/16/18 00:00 78 01/15/18 23:59 100 40 01/15/18 22:00 40 01/15/18 22:00 83 01/15/18 21:59 99 40 01/15/18 20:00 80 01/15/18 20:00 35 01/15/18 20:00 98.3 82 22 127/72 (90) 100 01/15/18 19:00 99 T-Piece 6.00 35 01/15/18 18:00 78 01/15/18 16:00 98.8 82 19 138/69 (92) 99 01/15/18 16:00 40 01/15/18 16:00 81 01/15/18 14:00 84 01/15/18 12:00 85 01/15/18 12:00 40 01/15/18 12:00 99.2 87 25 125/61 (82) 98 01/15/18 11:53 99 T-piece 6.00 35 01/15/18 10:34 40 01/15/18 10:00 89 01/15/18 09:50 99 40 01/15/18 09:50 40 01/15/18 08:00 98.7 85 19 120/68 (85) 99 01/15/18 08:00 40 01/15/18 08:00 83 01/15/18 07:00 100 Mechanical Ventilator 40 01/15/18 06:00 79 01/15/18 04:00 40 01/15/18 04:00 99.6 77 18 131/71 (91) 99 01/15/18 04:00 80 01/15/18 02:00 75 01/15/18 01:20 99 40 01/15/18 00:00 79 01/15/18 00:00 45 01/15/18 00:00 100.7 79 20 112/71 (85) 100 Arterial Line 01/14/18 22:00 80 01/14/18 20:30 98 40 01/14/18 20:00 80 01/14/18 20:00 100.2 80 16 125/67 (86) 98 Arterial Line 01/14/18 20:00 40 01/14/18 19:00 100 Mechanical Ventilator 40 01/14/18 16:38 100 40 01/14/18 16:00 45 01/14/18 16:00 99.0 86 20 140/78 (98) 99 01/14/18 15:06 40 01/14/18 12:05 98 T-piece 40 01/14/18 12:00 98 T-Piece 01/14/18 12:00 98.9 97 21 147/63 (91) 98 01/14/18 11:57 99 40 (Tigre Estrada) Physical Examination GENERAL: Awake & alert. Trached & on T-piece. His skin is cool & dry. HEENT: Normocephalic, atraumatic. PERRLA 2 mm brisk, EOMI. NGT. NECK: [place] J cervical collar in place. No JVD. Trached & trachea appears midline. MUSCULOSKELETAL: Improved automatic profile sander operator with both hands & lifting upper extremities off bed to command w/trace muscle contraction to LLE & questionable to RLE to noxious stimulation. No evident clubbing or deformity. Extremities edematous. NEUROLOGICAL: Awake & alert. Spontaneous eye opening. Nonverbal, trached, minimal attempt to verbalise. Nodded head appropriately to questions. Patient indicates decreased sensation to posterior LLE & RLE w/sensation intact to light touch to the BUE. Improved bilateral hand squeeze & lift extremity off bed R>L to command. Evident trace muscle contraction to LLE w/questionable to RLE to command. (Tigre Estrada) Lab, Micro, Other Results Laboratory Tests Test 01/15/18 04:00 01/15/18 20:00 01/16/18 05:10 01/16/18 21:45 White Blood Count 9.4 TH/MM3 13.2 TH/MM3 Red Blood Count 2.44 MIL/MM3 2.60 MIL/MM3 Hemoglobin 7.5 GM/DL 8.0 GM/DL Hematocrit 21.7 % 23.4 % Mean Corpuscular Volume 88.7 FL 89.7 FL Mean Corpuscular Hemoglobin 30.7 PG 30.9 PG Mean Corpuscular Hemoglobin Concent 34.6 % 34.4 % Red Cell Distribution Width 14.7 % 15.1 % Platelet Count 383 TH/MM3 382 TH/MM3 Mean Platelet Volume 7.3 FL 7.7 FL Blood Urea Nitrogen 20 MG/DL 23 MG/DL Creatinine 0.68 MG/DL 0.83 MG/DL Random Glucose 118 MG/DL 159 MG/DL Calcium Level 8.1 MG/DL 8.5 MG/DL Sodium Level 143 MEQ/L 144 MEQ/L Potassium Level 2.9 MEQ/L 3.3 MEQ/L 2.9 MEQ/L 2.8 MEQ/L Chloride Level 107 MEQ/L 107 MEQ/L Carbon Dioxide Level 30.0 MEQ/L 29.3 MEQ/L Anion Gap 6 MEQ/L 8 MEQ/L Estimat Glomerular Filtration Rate 116 ML/MIN 92 ML/MIN Test 01/17/18 06:30 White Blood Count 13.1 TH/MM3 Red Blood Count 2.52 MIL/MM3 Hemoglobin 7.7 GM/DL Hematocrit 22.5 % Mean Corpuscular Volume 89.2 FL Mean Corpuscular Hemoglobin 30.5 PG Mean Corpuscular Hemoglobin Concent 34.2 % Red Cell Distribution Width 14.7 % Platelet Count 329 TH/MM3 Mean Platelet Volume 7.8 FL Blood Urea Nitrogen 25 MG/DL Creatinine 0.76 MG/DL Random Glucose 140 MG/DL Calcium Level 8.5 MG/DL Sodium Level 145 MEQ/L Potassium Level 3.0 MEQ/L Chloride Level 110 MEQ/L Carbon Dioxide Level 27.9 MEQ/L Anion Gap 7 MEQ/L Estimat Glomerular Filtration Rate 102 ML/MIN (Tigre Estrada) Medical Decision Making Impression and Plan Impression: 1. Severe progressive paraplegia. Although he has significant spinal stenosis in the cervical thoracic and lumbar region, his overall presentation and exam suggests that the lumbar stenosis is the immediate cause of his severe lower extremity deficit, positive cauda equina syndrome. 2. Possible sepsis 3. Acute kidney disease 4. 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 Severe lumbar canal stenosis 2. Cauda equina syndrome 3. Cervical degenerative disease with severe stenosis and myelopathy 4. Thoracic disc disease with severe canal stenosis and myelopathy 5. Sepsis 6. Thrombocytopenia 7. Acute kidney disease Postoperative Diagnosis : (1) Cervical disc disease with myelopathy (2) Thoracic disc disease with myelopathy Postoperative Diagnosis : (1) Spinal epidural abscess (2) Thoracic disc disease with myelopathy (3) Lumbar canal stenosis 4. Postoperative lumbar epidural hematoma Respiratory insufficiency, CXR w/left lung hazy opacity suggestive of fluid. Ileus suggested by abdominal x-ray . Patient doing better. He is awake & alert. Trached & on T-piece. Improving motor strength BUE, evident LLE w/questionable RLE muscle contraction to command. T max 99.9 yesterday morning. GUIDO #1 (lower back) & #2 (cervical) d/c'd f2. GUIDO drains #3 (lumbar) & # 4 (lumbar) d/c'd . Reviewed labs for today. Leukocytosis essentially stable but drop in haemoglobin level. Sodium 145. Hypokalemia improved. Wound culture () positive for Escherichia coli, final . POD #14 () s/p: 1. Bilateral L1-2, L2-3, L3 4, L4 5 decompressive semi-laminectomy, medial facetectomy for spinal canal decompression. POD #10 (-) s/p: Procedure number 1. C2-C6 decompressive laminectomy Procedure number 2,Via separate incision: T2-T6 decompressive laminectomy POD #9 (-07) s/p: Part 2 of planned two-part procedure. Procedure #1: 1. [id number] decompressive semi-laminectomy, evacuation thoracic epidural abscess 2. Evacuation thoracic epidural abscess. Procedure #2: Via separate incision. 1. Revision L2-3, L3 4, L4 5 decompressive semi-laminectomy 2. Evacuation lumbar epidural abscess 3. Evacuation of postoperative lumbar epidural hematoma Plan: Discussed patient w/Nursing. Primary & critical care management per Coating Supervisor. Neuro checks. Turn patient q2h but keep the patient off of his back. Physical & Occupational Therapy eval & tx. Hold pharmacologic DVT prophylaxis. Mechanical DVT prophylaxis. (Tigre Estrada) Attending Statement The exam, history, and the medical decision-making described in the above note were completed with the assistance of the mid-level provider. I reviewed and agree with the findings presented. I attest that I had a [id number] encounter with the patient on the same day, and personally performed and documented my assessment and findings in the medical record. Patient sitting up in bed Remains relatively alert Moderate biceps triceps Trace proximal left lower extremity movement Minimal sensation distal left lower extremity Absent sensation right lower extremity (Jerry Chakraborty MD) Tigre Estrada Jan 17, 2018 09:41 Jerry Chakraborty MD Jan 19, 2018 22:23
--- NOTE | 2018-01-17 11:37 | HHI.IDPN ---
Subjective Subjective Remarks ID COVERAGE Mr. Reeves is a 67 y/o CM with history of BPH who underwent a prostate biopsy one week ago, on 12/27/17. On the evening of 12/29/17 he developed fever and chills, low back pain, and lower extremity numbness and paresthesias and muscle spasm. He was seen by his primary care physician and was given medication including muscle relaxant. The symptoms persisted and he returned to his primary care physician on 01/01/18 and was given additional medications including Cipro and medrol dose pack. On 01/02/2018 patient woke up with increased lower extremity weakness and numbness, and fell in the shower in the morning, after which he was unable to ambulate or lift his legs off the bed , and continued to experience pain in the lower back. He went to the emergency room at [facility], and was given additional medication injections. He could not lift his legs off the bed or ambulate in the emergency room, and was taken out to his car and lifted into the car and sent home again. He fell in the driveway again trying to get back into the house. He apparently did not urinate for the entire day. He has no complaint of pain which is numbness paresthesias in the upper extremities. Reportedly on admission there was no numbness or paresthesias over the chest or abdomen or pelvic region. The MRI of thoracic spine shows severe canal stenosis at T2-3 and T5-6 level with cord compressions, complete or near complete canal obliteration at L2-3 L3- 4 and severe multilevel canal stenosis of the C-spine. Entire spine including C spine shows areas of stenosis. Upon my discussion with patient had to be emergently taken to the OR for decompression. Intraop cultures were taken and no hardware placed at present time but it appears that patient will need more surgeries. The MRIs done were non contrast due to Acute renal failure on admission and cannot be repeated. Per dw plan is to treat as epidural abscess stone since patient was treated for few days with antibiotics prior to arrival and also due to patient needing hardware placement which can be seeded. Previously, Intubated, being weaned off sedation, UO is good peck in place. Not on any pressors. There is a plan wean and extubate. ID consulted for evaluation and Management of GN madonna bacteremia (E.coli CTX M negative) and possible epidural abscess. Patient underwent procedure C2-C6 decompressive laminectomy, procedure to T2-T6 decompressive laminectomy as well as lumbar. (Separate incisions) by Dr. Chakraborty Notes reviewed D/W RN Temps ok Has been on T-piece .24 hours S/P trach 01/13 - has blood secretions Has evidence of lumbar and thoracic epidural abscess. [place] J collar in place. Temps occ 99+ BP ok Not on pressors. Has some movement of UE, none in LE Cultures reviewed Antibiotics Fortaz Current Medications Medications (Trade) Dose Ordered Sig/Kaveh Route Start Time Stop Time Status Last Admin (Robaxin) 500 mg QID PO 01/03/18 09:00 01/17/18 08:43 (Flomax) 0.4 mg HS PO 01/03/18 21:00 01/15/18 20:14 (Lipitor) 40 mg DAILY PO 01/03/18 09:00 01/17/18 08:42 (NS Flush) 2 ml UNSCH PRN IV FLUSH 01/03/18 05:00 (NS Flush) 2 ml BID IV FLUSH 01/03/18 09:00 01/17/18 08:42 (Tylenol) 650 mg Q6H PRN PO 01/03/18 05:00 01/12/18 16:29 (Zofran Inj) 4 mg Q6H PRN IV PUSH 01/03/18 05:00 01/05/18 15:50 (Roxana-Colace) 1 tab BID PO 01/03/18 09:00 01/17/18 08:40 (Tears Naturale Opth Soln) 1 drop Q8HR EACH EYE 01/03/18 14:00 01/17/18 07:47 (Albuterol Neb) 2.5 mg Q2HR NEB PRN NEB 01/03/18 10:00 01/09/18 11:30 (Pepcid) 20 mg BID PO 01/04/18 21:00 01/17/18 08:40 (K-Phos Neutral) 250 mg Q6HR PO 01/05/18 18:00 01/17/18 07:47 (Morphine Inj) 2 mg Q4H PRN IV PUSH 01/05/18 15:45 01/14/18 22:10 Ceftazidime 2000 mg/Sodium Chloride 100 ml @ 200 mls/hr Q8H IV 01/06/18 14:00 01/17/18 07:46 (Dulcolax Supp) 10 mg DAILY RECTAL 01/09/18 16:15 01/11/18 08:07 Potassium Chloride 100 ml @ 50 mls/hr Q2H PRN IV 01/12/18 08:30 01/16/18 06:27 Potassium Chloride 100 ml @ 50 mls/hr Q2H PRN IV 01/12/18 08:30 (K-Lyte Cl Eff) 50 meq UNSCH PRN PO 01/12/18 08:30 01/15/18 17:45 Potassium Chloride 100 ml @ 25 mls/hr UNSCH PRN IV 01/12/18 08:30 01/17/18 01:03 Potassium Chloride 100 ml @ 50 mls/hr Q2H PRN IV 01/12/18 08:30 Magnesium Sulfate 4 gm/Sodium Chloride 100 ml @ 50 mls/hr UNSCH PRN IV 01/12/18 08:30 01/16/18 09:40 (Mag-Ox) 800 mg UNSCH PRN PO 01/12/18 08:30 Magnesium Sulfate 2 gm/Sodium Chloride 100 ml @ 50 mls/hr UNSCH PRN IV 01/12/18 08:30 (K-Phos) 2,000 mg Q4H PRN PO 01/12/18 08:30 Sodium Phosphate 30 mmol/Sodium Chloride 250 ml @ 42 mls/hr UNSCH PRN IV 01/12/18 08:30 (K-Phos) 2,000 mg UNSCH PRN PO/TUBE 01/12/18 08:30 Potassium Phosphate 30 mmol/ Sodium Chloride 260 ml @ 42 mls/hr UNSCH PRN IV 01/12/18 08:30 (Miralax) 17 gm BID PO 01/12/18 09:00 Future hold 01/17/18 08:41 (Lactulose Liq) 30 ml BID PO 01/12/18 09:00 Future hold 01/17/18 08:40 (Heparin Inj) 5,000 units Q8HR SQ 01/13/18 14:00 01/17/18 07:46 (Lasix Inj) 40 mg Q8H IV PUSH 01/14/18 12:00 01/17/18 04:11 Albumin Human 100 ml @ 60 mls/hr Q8H IV 01/14/18 12:00 01/17/18 04:10 (Heparin Central Flush) See Protocol DAILY IV FLUSH 01/15/18 09:00 (Heparin Central Flush) See Protocol UNSCH PRN IV FLUSH 01/14/18 21:15 (NS Flush) UNSCH PRN IV FLUSH 01/14/18 21:15 (Roxicodone Intensol Liq) 10 mg Q6H PRN PO 01/16/18 10:00 (Neurontin Liq) 300 mg TID NG 01/16/18 09:00 01/17/18 08:41 (Free Water) VOLUME: 200 ML Q6HR G-TUBE 01/17/18 07:30 01/17/18 07:30 Lines Line sites with no e.o infection - LSC Past Medical History Depression BPH Hypothyroidism Past Surgical History Prostate biopsy, Tonsillectomy, history of kidney surgery. Prostate surgery Allergies: Coded Allergies: No Known Allergies (Unverified , 01/02/18) Objective . Vital Signs Date Time Temp Pulse Resp B/P (MAP) Pulse Ox O2 Delivery O2 Flow Rate FiO2 01/17/18 08:56 97 T-piece 35 01/17/18 06:00 84 01/17/18 04:00 98.9 80 16 134/76 (95) 100 01/17/18 04:00 80 01/17/18 02:00 84 01/17/18 00:00 78 01/17/18 00:00 99.1 78 23 120/67 (84) 100 01/16/18 22:08 98 T-piece 6.00 35 01/16/18 22:00 94 01/16/18 20:00 86 01/16/18 20:00 99.8 86 25 122/57 (78) 98 01/16/18 19:00 94 T-Piece 35 01/16/18 16:00 99.2 90 26 136/76 (96) 97 01/16/18 12:00 99.1 91 27 122/66 (84) 96 . Laboratory Tests Test 01/16/18 05:10 01/17/18 06:30 White Blood Count 13.2 TH/MM3 13.1 TH/MM3 Red Blood Count 2.60 MIL/MM3 2.52 MIL/MM3 Hemoglobin 8.0 GM/DL 7.7 GM/DL Hematocrit 23.4 % 22.5 % Mean Corpuscular Volume 89.7 FL 89.2 FL Mean Corpuscular Hemoglobin 30.9 PG 30.5 PG Mean Corpuscular Hemoglobin Concent 34.4 % 34.2 % Red Cell Distribution Width 15.1 % 14.7 % Platelet Count 382 TH/MM3 329 TH/MM3 Mean Platelet Volume 7.7 FL 7.8 FL Laboratory Tests Test 01/15/18 20:00 01/16/18 05:10 01/16/18 21:45 01/17/18 06:30 Potassium Level 3.3 MEQ/L 2.9 MEQ/L 2.8 MEQ/L 3.0 MEQ/L Blood Urea Nitrogen 23 MG/DL 25 MG/DL Creatinine 0.83 MG/DL 0.76 MG/DL Random Glucose 159 MG/DL 140 MG/DL Calcium Level 8.5 MG/DL 8.5 MG/DL Sodium Level 144 MEQ/L 145 MEQ/L Chloride Level 107 MEQ/L 110 MEQ/L Carbon Dioxide Level 29.3 MEQ/L 27.9 MEQ/L Anion Gap 8 MEQ/L 7 MEQ/L Estimat Glomerular Filtration Rate 92 ML/MIN 102 ML/MIN Imaging Chest X-Ray 01/13/18 0000 Signed Impressions: Service Date/Time: January 17:47 - CONCLUSION: 1. Interval removal of endotracheal tube and placement of tracheostomy tube. 2. Hazy opacity is now noted projected over the left lung. This could represent post erlying fluid. Jorge Luis Puri MD Abdomen X-Ray 01/12/18 0600 Signed Impressions: Service Date/Time: Friday, January 12, 2018 04:57 - CONCLUSION: Mild gaseous distention possibly ileus. Hussein Fontaine MD Thoracic Spine X-Ray 01/08/18 0000 Signed Impressions: Service Date/Time: Sunday, January 07, 2018 21:17 - CONCLUSION: Intraoperative spot images of the thoracic spine for localization purposes. Marcial Redmond MD Lumbar Spine X-Ray 01/08/18 0000 Signed Impressions: Service Date/Time: Sunday, January 07, 2018 21:17 - CONCLUSION: Single intraoperative spot image for localization purposes. Marcial Redmond MD Thoracic Spine MRI 01/06/18 0000 Signed Impressions: Service Date/Time: January 14:23 - CONCLUSION: 1. Multilevel cord compression is due predominantly to multiple disc protrusions. Significant cord compression is present at least 6 levels. There is also cord compression posteriorly at the T10 level due to a fluid collection in the midline which measures 6 mm in AP dimension. 2. There is also focal subcutaneous right parasagittal fluid collection at T10 and T11 which does not demonstrate peripheral contrast enhancement. An abscess is suspected. Jagjit Wilkinson MD Chest CT 01/06/18 Signed Impressions: Service Date/Time: January 18:51 - CONCLUSION: 1. No abscess identified outside of the thoracic spinal canal. Small bilateral pleural effusions. NG coiled in the stomach. Frederick Rizzo MD Cervical Spine MRI 01/06/18 Signed Impressions: Service Date/Time: January 14:23 - CONCLUSION: 1. Severe degenerative changes with severe spinal stenosis at C2-3, C3-4, C4-5 and C5-6. There is moderate spinal stenosis at C6-7 and C7-T1. Overall assessment of the cord is limited due to motion artifact. I do not definitively see edema within the cord however there is significant flattening of the cord at multiple levels. 2. No significant abnormal contrast enhancement identified. Leonardo Sorenson MD Brain MRI 01/06/18 Signed Impressions: Service Date/Time: January 14:23 - CONCLUSION: 1. Negative MRI of the brain with and without contrast. Jagjit Wilkinson MD Abdomen/Pelvis CT 01/06/18 Signed Impressions: Service Date/Time: January 18:51 - CONCLUSION: 1. Multiple laminectomy defects in the lumbar spine with some locules of air both within the canal and within the L2 vertebral body which could be related to infection. Cannot exclude abscess formation within the canal. 2. 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 3. Diffuse ileus. 4. Small effusions and mild anasarca. 5. Peck catheter in decompressed bladder. NG coiled in stomach. Frederick Rizzo MD Lumbar Spine MRI 01/05/18 Signed Impressions: Service Date/Time: Wednesday, January 05, 2018 14:27 - CONCLUSION: 1. Extensive postsurgical changes with apparent left decompressive laminectomy leftward from L1 to through L4-5. 2. There is a well-circumscribed 1.4 cm cystic structure midline just posterior to the thecal sac at L4-5 which was not clearly present previously. May represent a small seroma which could result in some degree of central spinal stenosis despite the left laminectomy. 3. In addition, severe narrowing of the right L4-5 neural foramen with almost certain compromise of the right L4 nerve root. Emir Bowles MD Physical Exam GENERAL: This is a well-nourished, well-developed patient, awake, on T-pice, NAD SKIN: Warm and dry. Edematous HEAD: Normocephalic. EYES: Pupils equal round. No scleral icterus. No injection or drainage. ENT: Moist mucosa NECK: [place] J collar in place. Trach site ok CARDIOVASCULAR: Tachycardic. RESPIRATORY: Has scattered rhonchi GASTROINTESTINAL: Abdomen non-tender, soft, slightly distended. : Peck catheter draining gila colored urine. Significant scrotal edema. BACK: Surgical incisions healing well per nursing report. MUSCULOSKELETAL: Extremities without clubbing, cyanosis. Generalized edema +1 of extremities. NEUROLOGICAL: Opens eyes follows commands. Moves UE at wrist level. No movement in BLE. LINES: Left IJ central line in place. Assessment & Plan Remarks Severe Sepsis present on admission (leucocytosis, Tachycardia, source: bacteremia and epidural abscess. E.coli bacteremia high grade E.Coli UTI recent prostate biopsy. PNA aspiration/HCAP Epidural abscess, thoracic and lumbar, C/S E coli - S/P surgery and evacuation Recent history of prostate biopsy as risk factor for E.coli bacteremia. Incomplete Quadriparesis. Paraparesis present on admission. Recs: Continue Ceftazidime IV for E.coli Sepsis and Osteomyelitis of C,T,L spine plus epidural abscesses. Tolerating T-piece Monitor respiratory status Monitor progress D/W Laura Lopez MD Jan 17, 2018 11:37
[2018-01-17] MEDS: TAMSULOSIN HCL 0.4 MG CAP PO SCH (20:11)
[2018-01-17] MEDS: MORPHINE SULFATE 2 MG/ML SYRINGE IV PUSH PRN (20:28)
[2018-01-18] VITALS (14 sets, daily range): BP systolic 100–152; BP diastolic 52–83; PULSE 78–99; RESP 18–22; TEMP 98.1–99.3; O2SAT 98–100
[2018-01-18] MEDS: oxyCODONE HCL ORAL CONC 5 MG/0.25 ML SYRINGE PO PRN ×2 (00:59→10:58)
[2018-01-18] MEDS: POTASSIUM PHOSPHATE/SODIUM PHOSPHATE 250 MG TAB PO SCH ×4 (00:59→17:31)
[2018-01-18] MEDS: FREE WATER G-TUBE SCH ×4 (01:00→17:32)
[2018-01-18] MEDS: POTASSIUM CHLOR 40 MEQ PREMIX 100 ML IV PRN (01:58)
[2018-01-18] MEDS: ALBUMIN 25% INJ 100 ML IV SCH ×3 (04:58→19:40)
[2018-01-18] MEDS: FUROSEMIDE 40 MG/4 ML VIAL IV PUSH SCH ×3 (04:58→19:41)
[2018-01-18] MEDS: HEPARIN SODIUM - SQ 10,000 UNITS/ML VIAL SQ SCH ×3 (04:59→21:11)
[2018-01-18] MEDS: ARTIFICIAL TEARS OPTH SOLN 15 ML BTL EACH EYE SCH ×3 (04:59→21:11)
[2018-01-18] MEDS: cefTAZidime INJ 2,000 MG in SODIUM CHLORIDE 0.9% INJ 100 ML IV SCH ×3 (06:05→21:10)
[2018-01-18 06:17] LABS: HEMATOCRIT 21.1 % (39.0-51.0); HEMOGLOBIN 7.2 GM/DL (13.0-17.0); MEAN CELL VOLUME 90.3 FL (80.0-100.0); MEAN CORPUSCULAR HEMOGLOBIN 30.7 PG (27.0-34.0); MEAN PLATELET VOLUME 7.9 FL (7.0-11.0); PLATELET COUNT 243 TH/MM3 (150-450); RED BLOOD COUNT 2.34 MIL/MM3 (4.50-5.90); RED CELL DISTRIBUTION WIDTH 15.3 % (11.6-17.2); WHITE BLOOD COUNT 10.7 TH/MM3 (4.0-11.0)
[2018-01-18 06:59] LABS: BICARBONATE 26.6 MEQ/L (21.0-32.0); CALCIUM 8.4 MG/DL (8.5-10.1); CREATININE 0.79 MG/DL (0.60-1.30)
[2018-01-18] MEDS: FAMOTIDINE 20 MG TAB PO SCH ×2 (08:02→21:11)
[2018-01-18] MEDS: METHOCARBAMOL 500 MG TAB PO SCH ×4 (08:02→21:11)
[2018-01-18] MEDS: ATORVASTATIN 40 MG TAB PO SCH (08:03)
[2018-01-18] MEDS: GABAPENTIN 250 MG/5 ML UDC NG SCH ×3 (08:05→17:31)
[2018-01-18] MEDS: SODIUM CHLORIDE 0.9% FLUSH 10 ML FLUSH IV FLUSH SCH ×2 (08:05→21:00)
[2018-01-18] MEDS: LACTULOSE SYRUP 20 GM/30 ML CUP PO SCH ×2 (08:05→21:10)
[2018-01-18] MEDS: DOCUSATE SODIUM 50 MG/SENNA 8.6 MG TAB PO SCH ×2 (08:06→21:10)
[2018-01-18] MEDS: POLYETHYLENE GLYCOL 17 GM PKG PO SCH ×2 (08:06→21:10)
[2018-01-18] MEDS: BISACODYL 10 MG SUPP RECTAL SCH (08:07)
--- NOTE | 2018-01-18 10:07 | HHI.CCPN ---
Subjective Remarks/Hospital Course 67-year-old male who underwent a prostate biopsy one week ago, on 12/27/17. On the evening of 12/29/17 he developed fever and chills, low back pain, and lower extremity numbness and paresthesias and muscle spasm. He was seen by his primary care physician and was given medication including muscle relaxant. The symptoms persisted and he returned to his primary care physician on Wednesday, and was given additional medications including Cipro. He awoke on 01/02/2018 with increased lower extremity weakness and numbness, and fell in the shower in the morning, after which he was unable to ambulate or lift his legs off the bed, and continued to experience pain in the lower back. He went to the emergency room at [facility], and was given additional medication injections. He could not lift his legs off the bed or ambulate in the emergency room, and was taken out to his car and lifted into the car and sent home again. He fell in the driveway again trying to get back into the house. He apparently did not urinate for the entire day. He has no complaint of pain which is numbness paresthesias in the upper extremities. No numbness or paresthesias over the chest or abdomen or pelvic region. The MRI of thoracic spine shows severe canal stenosis at T2-3 and T5-6 level with cord compressions, complete or near complete canal obliteration at L2 -3 L3-4 and severe multilevel canal stenosis of the C-spine. The patient is emergently taken to operating room by Dr. Chakraborty. Subjective 01/04: Extubated late afternoon yesterday without any complications. Some sensation bilateral lower extremities. Strength 4-5 bilateral upper extremities. Afebrile. Hemodynamically stable. 01/06: RECONSULT NOTE: reconsulted for respiratory distress. in brief, 67yM with recent prostate biopsy complicated by e. coli bacteremia and lumbar epidural abscess. he was stable and sent to the floor where he developed respiratory distress, fever, tachycardia, tachypnea, diaphoresis. on my exam, patient is in distress, appears toxic. repeat MRI spine demonstrates fluid collections and evidence of spinal compression in cervical, thoracic, and lumbar spinal areas concerning for rapidly ascending abscess with neurologic compromise. also, patient was weak in b/l LEs overnight and now is nearly a complete quad, with only 3/5 distal upper extremity strength left and 1/5 proximal upper extremity strength. 01/07: Persistent septic course. Unable to wean from mechanical ventilation. Infectious Disease service is guiding antimicrobial therapy. 01/08: Back from OR. Vent synchrony much improved with large tidal volume breaths. Urine output acceptable, gas exchange acceptable. 01/09: Continued septic course requiring vasopressors, diffuse general edema. 01/10: Improved control of sepsis after surgical source control. Long recovery, high risk. 01/11: shock improving. now off vasopressors. however, now functionally a quad and minimal if any movement in upper extremities. ileus persists despite aggressive therapy. GI following. pain is a significant problem, on 300 mcg/hr of fentanyl: will need a multimodal approach. 01/12: successful bowel regimen overnight with good bowel movements. however, due to 4L GoLytely, did not achieve optimal diuresis. pain better controlled and decreasing fentanyl requirement. 01/13: continues to make slow improvements. however, NIF worsening to -18 and FVC less than 500. very high risk of failure. will need tracheostomy to progress care. 01/14: s/p trach yesterday. up in stretcher chair. clinically improving. more awake. denies pain. ROS negative. 01/15: continues to improve. net -5L/24h. continues to diurese. daily weight 104kg (admission weight 84kg). Cr still at baseline. OOB to stretcher chair and tolerating t-piece. 01/16: OOB all day yesterday and tolerated t-piece all day. rested on vent overnight. daily weight 97kg and down -7L/24h. hypokalemic this AM despite aggressive replacement. 01/17: hypokalemia still a problem. adequate diuresis. still not back to dry weight yet. t-piece x >24h. 01/18: On T piece currently. Objective Vital Signs Date Time Temp Pulse Resp B/P (MAP) Pulse Ox O2 Delivery O2 Flow Rate FiO2 01/18/18 08:00 86 01/18/18 07:34 99 T-piece 35 01/18/18 04:00 99.0 21 138/83 (101) 01/17/18 21:47 5.00 Intake and Output 01/18/18 01/18/18 01/19/18 08:00 16:00 00:00 Intake Total 1503 ml Output Total 2550 ml Balance -1047 ml Result Diagram: 01/18/18 0545 01/18/18 0545 Imaging Last Impressions Thoracic Spine MRI 01/03/18 0000 Signed Impressions: Service Date/Time: Wednesday, January 03, 2018 00:38 - CONCLUSION: Multilevel disc abnormalities. Severe canal stenosis at T2-3 and T5-6 with cord compression and mild signal changes in the cord at T2-3 and moderate signal changes within the cord at T5-6. Less severe changes at L2 additional levels as described. Harley Herrera MD Lumbar Spine MRI 01/03/18 0000 Signed Impressions: Service Date/Time: Wednesday, January 03, 2018 00:38 - CONCLUSION: Complete or near complete canal obliteration at L2-3, L3-4 and L4-5 with less severe compromise at L1-2 and T12-L1. Harley Herrera MD Cervical Spine MRI 01/03/18 0000 Signed Impressions: Service Date/Time: Wednesday, January 03, 2018 00:38 - CONCLUSION: Severe multilevel canal stenosis. Findings appear to be most critical at C4-5 and C5-6 where AP canal dimension is reduced to 4-5 mm, however also quite severe at C2-3 and C3-4. Harley Herrera MD Chest X-Ray 01/02/18 5091 Signed Impressions: Service Date/Time: Tuesday, January 02, 2018 23:11 - CONCLUSION: Mild basilar atelectasis or scarring. Harley Herrera MD Procedures L1 through L5 decompressive laminectomy. Objective Remarks GENERAL: 67-year-old male, trached. SKIN: Warm. HEAD: Normocephalic. EYES: No scleral icterus. No injection or drainage. NECK: Supple, trachea midline. trach in place, no evidence of bleeding. c- collar in place. CARDIOVASCULAR: normal rate, regular rhythm. sinus. No JVD. RESPIRATORY: Equal chest rise. t-piece. no accessory muscle use. GASTROINTESTINAL: Abdomen soft, mildly distended. nontender. no guarding. MUSCULOSKELETAL: Diffuse edema, well perfused limbs. NEURO EXAM: No movement of feet to stimulation. Wiggles right fingers. no proximal motor in upper extremities. RASS -1. A/P Assessment and Plan Assessment: 67-year-old male now postop day 10 status post lumbar laminectomy and decompression for epidural abscess who presents now with rapidly progressive spinal abscess with rapidly worsening myelopathy and neurologic function. Now s/p decompression. shock resolved. now s/p trach. needs aggressive PT/OT and rehab. continue diuresis. OOB to stretcher chair daily Neuro/Psych: Postop day #14 Bilateral L1-2, L2-3, L3 4, L4 5 decompressive semi-laminectomy, medial facetectomy for spinal canal decompression. Depression/anxiety Ascending myelopathy Spinal abscess C-spine revealed cord compression C2 through C4 and C4 through C6. T-spine 2-3/ 5 6 and lumbar spine T throughout L2 with essentially ablation of the cord from L2 through L5. Status post emergent surgery per Dr. Chakraborty / Acetaminophen 650 mg p.o. every 6 hours as needed pain 1-5/fever gabapentin 300 mg TID. oxycodone to 10mg po q4h prn. Morphine sulfate 2 mg IV every 8 as needed pain 6 or 10 Neurochecks CV: Dyslipidemia Severe sepsis- resolved. septic shock- resolved. off vasopressors good diuresis. continue lasix 40mg iv q8h with albumin diamox 500mg iv x 1 today for contraction alkalosis. Currently on atorvastatin 40 mg p.o. daily. Hospital substitution for rosuvastatin 20 mg p.o. daily s/p hydrocortisone stress dose steroids (therapy completed 01/15) Resp: Acute hypoxic hypercarbic respiratory failure- resolving Vent bundle Nebs Wean FiO2 for goal SPO2 greater than 90% Gas exchange acceptable. daily sbt's OOB to stretcher chair daily PT/OT/Speech therapy GI: Neurogenic ileus- resolving. Acute protein calorie malnutrition- moderate tube feeds. senna/colace, lactulose, miralax, dulcolax supp daily. prn mag citrate if no BM daily. Likely ileus is multifactorial including severe sepsis and postoperative pain, likely compounded by myelopathy and neurogenic component to his ileus Famotidine for GI prophylaxis GI consulted trend prealbumin weekly. : BPH Maintain Peck catheter per urology. have discussed with urology: cannot I/O straight cath for now. recommended changing peck catheter Monthly. Currently on tamsulosin 0.4 mg p.o. daily Recent prostate biopsy. Endo: Sliding scale insulin Accu-Cheks to maintain euglycemia/low regimen Renal: Acute kidney injury- resolved Avoid nephrotoxic drugs Monitor urine output Accurate I's and O's Heme: Thrombocytopenia likely secondary to sepsis- resolved. Anemia secondary to acute blood loss Haptoglobin high. LDH normal. Peripheral smear no signs of schistocytes total bilirubin normal. Status post 2 pack platelets 01/04. Followed by hematology no indication for transfusion today. continue to monitor daily. ID: E. coli bacteremia E. coli spinal abscess ID consulted and guiding abx therapy. Emergent decompression + washout FEN Hypokalemia- severe, persistent. Replace electrolytes as clinically indicated ICU electrolyte protocol MSK: Osteoporosis Holding meloxicam 7.5 mg p.o. twice daily. PT/OT evaluate and treat Access - 01/15 PICC line Peck: keep per urology. change monthly. Prophylaxis -GI -famotidine -DVT -SCD/SQH Dispo: LTAC vs. inpatient rehab. have asked case management to assist with this. Consult and transfer to hospitalist service for further medical management. Critical care will be available as needed. Alfonso Charles MD Jan 18, 2018 10:07
--- NOTE | 2018-01-18 10:47 | HHI.NSPN ---
(Tigre Estrada) History Chief Complaint: Pain to the extremities that is better. (Tigre Estrada) Interval History 01/03: 67-year-old male who underwent a prostate biopsy one week ago, on . He states that on the evening of 12/29/17 on into the morning of 12/30/17, he developed fever and chills, low back pain, and lower extremity numbness and paresthesias and muscle spasm. He was seen by his primary care physician and was given medication including muscle relaxant. The symptoms persisted and he returned to his primary care physician on Wednesday , 01/01/18 and was given additional medications including Cipro. He awoke on 01/02/2018 with increased lower extremity weakness and numbness, and fell in the shower in the morning, after which he was unable to ambulate or lift his legs off the bed, and continued to experience pain in the lower back. He went to the emergency room at [facility], and was given additional medication injections. He states that he could not lift his legs off the bed or ambulate in the emergency room, and was taken out to his car and lifted into the car and sent home again. He fell in the driveway again trying to get back into the house. He apparently did not urinate for the entire day. He has no complaint of pain which is numbness paresthesias in the upper extremities. No numbness or paresthesias over the chest or abdomen or pelvic region. The patient was emergently taken to the operating room for a bilateral L1-2, L2- 3, L3 4, L4 5 decompressive semi-laminectomy, medial facetectomy for spinal canal decompression. Post-operatively the patient remained intubated and was admitted to [facility] for further care and monitoring. 01/04: When seen this afternoon the patient has been extubated. He is awake and alert and readily interacts. He does report pain to the neck and the lower back. He has no numbness, tingling or weakness to the upper extremities but does say he will have pain shooting down them if he moves wrong. He denies any pain to the lower extremities but does have numbness to both feet and about the only movement he is able to do is move his knees medially and laterally. Upon examination the patient's sensorimotor exam is improved from pre-operatively 01/05: The patient desaturated this morning and a Halicat was initiated. From the EMR Nursing reported that the patient was lethargic and difficult to arouse. His sat was in the 80s and he did have a fever of 102F. He was therefore transferred back to [facility]. A chest x-ray demonstrated a left lower lobe consolidation. His blood, urine and lumbar spine wound cultures have all come back positive for Escherichia coli. When seen this afternoon the patient was awake, alert and readily interacted. He was visiting with his significant other. His upper extremity examination was variable with some improvement and some decline. His sensation and motor strength to the lower extremities had declined. The surgical incision looked good upon examination and the GUIDO drain was removed. 01/06: This afternoon the patient is on a nonrebreather mask when seen, he is tachypneic and laboured. He says he has some low back pain, especially at night. He denies any neck pain or headache. He has worsening of his muscle strength to the upper extremities and it remains poor to the lower. 01/07: The patient was urgently intubated yesterday evening for worsening respiratory status and remains so this morning. He underwent emergent surgery for decompression of the cervical and thoracic spines. Post-operatively he returned to [facility]. He is sedated with propofol. He has vasopressin and norepinephrine infusing for blood pressure support. He is obtunded but sedated and there is no response to any stimulation. 01/08: Patient sedated with Diprivan and fentanyl drips. He was biting the tube and was also recently placed on Versed. He is not opening eyes or following commands. He remains sedated for vent synchrony. 01/09: Pt sedated with Diprivan and Fentanyl drips. He nods his head slightly to questions. Intubated a/c. RN reports all bandages are dry with only mild post op staining. 01/10: When seen the patient is lethargic. He is sedated with propofol and midazolam. He continues to be intubated and mechanically ventilated. His significant other stated that the patient was awake a few minutes ago. When he called the patient's name he opened both eyes. He did blink to command. There was no motor response to any stimulation. 01/11: This morning the patient is drowsy when seen. He continues to be sedated with propofol and midazolam. He is still intubated and mechanically ventilated. His eyes open to voice. He does not move the extremities to any stimulation even though his sedation is held. 01/12: The patient is drowsy. He is on ketamine for sedation and pain control. He remains intubated and mechanically ventilated. He opened his eyes to voice. He indicated he had no pain. He weakly gripped with the right hand to command and gave a thumbs up. His line assigner was strong when local noxious stimulation was applied. He had no response with the other extremities to local noxious stimulation. 01/14: When seen the patient is awake. He has been trached and mechanically ventilated. Nursing does say that a CPAP trial may be done today. He nods appropriately. He denies any pain to the neck or back. Upon examination he is able to give a weak hand grasp bilaterally and has muscle contractions to the upper extremities when asked to lift them off the bed. He has no response to noxious stimulation of the lower extremities. He has numbness to the left lower but says the right lower and both upper extremities feel normal. 01/15: doing well, family at beside, remains very weak in extremities 01/16: sitting up in stretcher chair, alert, nursing reports increased sensation in lower extremities, no significant change to motor function. 01/17: The patient is awake and alert in bed watching TV and visiting with his significant other. He is trached and on a T-piece. He does try to verbalise some and nods appropriately. He does have pain to the extremities as well as some decreased sensation. He is moving the upper extremities spontaneously and has trace contraction of the lower extremities. 01/18: This morning the patient is in the cardiac/stretcher chair watching TV with his significant other. He is awake and alert. He says he feels better today and his pain is better also. He is able to move the upper extremities spontaneously but has no movement to the lower extremities. (Tigre Estrada) Exam Results 01/16/18 01/16/18 01/17/18 01/17/18 01/18/18 01/18/18 06:00 18:00 06:00 18:00 06:00 18:00 Intake Total 775 ml 2142 ml 2665 ml 100 ml Output Total 5800 ml 5925 ml 5425 ml Balance -5025 ml -3783 ml -2760 ml 100 ml IV Total 400 ml 500 ml 100 ml Tube Feeding 655 ml 1402 ml 1255 ml Tube Irrigant 120 ml 340 ml 910 ml Output Urine Total 5600 ml 5400 ml 5125 ml Stool Total 200 ml 525 ml 300 ml Vital Signs Date Time Temp Pulse Resp B/P (MAP) Pulse Ox O2 Delivery O2 Flow Rate FiO2 01/18/18 08:00 86 01/18/18 07:34 99 T-piece 35 01/18/18 07:00 99 T-Piece 28 01/18/18 06:00 78 01/18/18 04:00 86 01/18/18 04:00 99.0 86 21 138/83 (101) 100 01/18/18 02:00 98 01/18/18 01:59 20 01/18/18 00:00 99.3 96 20 109/59 (76) 98 01/18/18 00:00 96 01/17/18 22:00 98 01/17/18 21:47 99 T-piece 5.00 35 01/17/18 20:33 22 01/17/18 20:00 106 01/17/18 20:00 99.7 106 26 150/82 (104) 98 01/17/18 19:00 100 T-Piece 35 01/17/18 18:00 84 01/17/18 16:00 98.0 90 24 112/64 (80) 98 01/17/18 14:00 84 01/17/18 12:00 98.2 98 25 123/72 (89) 96 01/17/18 10:00 84 01/17/18 08:56 97 T-piece 35 01/17/18 08:00 98.7 84 23 146/80 (102) 96 01/17/18 07:00 99 Mechanical Ventilator 35 01/17/18 06:00 84 01/17/18 04:00 98.9 80 16 134/76 (95) 100 01/17/18 04:00 80 01/17/18 02:00 84 01/17/18 00:00 78 01/17/18 00:00 99.1 78 23 120/67 (84) 100 01/16/18 22:08 98 T-piece 6.00 35 01/16/18 22:00 94 01/16/18 20:00 86 01/16/18 20:00 99.8 86 25 122/57 (78) 98 01/16/18 19:00 94 T-Piece 35 01/16/18 16:00 99.2 90 26 136/76 (96) 97 01/16/18 12:00 99.1 91 27 122/66 (84) 96 01/16/18 09:45 99 T-piece 6.00 35 01/16/18 08:00 40 01/16/18 08:00 99.9 81 25 141/76 (97) 100 01/16/18 07:00 99 Mechanical Ventilator 35 01/16/18 06:00 87 01/16/18 05:25 99 40 01/16/18 04:33 16 01/16/18 04:00 40 01/16/18 04:00 99.1 89 18 142/78 (99) 100 01/16/18 04:00 87 01/16/18 03:37 99 40 01/16/18 02:00 87 01/16/18 00:00 40 01/16/18 00:00 98.3 84 18 135/63 (87) 100 01/16/18 00:00 78 01/15/18 23:59 100 40 01/15/18 22:00 40 01/15/18 22:00 83 01/15/18 21:59 99 40 01/15/18 20:00 80 01/15/18 20:00 35 01/15/18 20:00 98.3 82 22 127/72 (90) 100 01/15/18 19:00 99 T-Piece 6.00 35 01/15/18 18:00 78 01/15/18 16:00 98.8 82 19 138/69 (92) 99 01/15/18 16:00 40 01/15/18 16:00 81 01/15/18 14:00 84 01/15/18 12:00 85 01/15/18 12:00 40 01/15/18 12:00 99.2 87 25 125/61 (82) 98 01/15/18 11:53 99 T-piece 6.00 35 (Tigre Estrada) Physical Examination GENERAL: Awake & alert. Trached & on T-piece. His skin is cool & dry. HEENT: Normocephalic, atraumatic. NGT. NECK: [place] cervical collar in place. No JVD. Trached & trachea appears midline. MUSCULOSKELETAL: Moving BUE spontaneously & to command, no response w/lower to noxious stimulation. No evident clubbing or deformity. NEUROLOGICAL: Awake & alert. Spontaneous eye opening. Nonverbal, trached, minimal attempt to verbalise. Nodded head appropriately to questions. Patient numb to BLE w/sensation intact to light touch to the BUE. Moving BUE spontaneously & purposefully as well as to command. No movement of BLE to noxious stimulation but does indicate he felt nailbed pressure. (Tigre Estrada) Lab, Micro, Other Results Laboratory Tests Test 01/15/18 20:00 01/16/18 05:10 01/16/18 21:45 01/17/18 06:30 Potassium Level 3.3 MEQ/L 2.9 MEQ/L 2.8 MEQ/L 3.0 MEQ/L White Blood Count 13.2 TH/MM3 13.1 TH/MM3 Red Blood Count 2.60 MIL/MM3 2.52 MIL/MM3 Hemoglobin 8.0 GM/DL 7.7 GM/DL Hematocrit 23.4 % 22.5 % Mean Corpuscular Volume 89.7 FL 89.2 FL Mean Corpuscular Hemoglobin 30.9 PG 30.5 PG Mean Corpuscular Hemoglobin Concent 34.4 % 34.2 % Red Cell Distribution Width 15.1 % 14.7 % Platelet Count 382 TH/MM3 329 TH/MM3 Mean Platelet Volume 7.7 FL 7.8 FL Blood Urea Nitrogen 23 MG/DL 25 MG/DL Creatinine 0.83 MG/DL 0.76 MG/DL Random Glucose 159 MG/DL 140 MG/DL Calcium Level 8.5 MG/DL 8.5 MG/DL Sodium Level 144 MEQ/L 145 MEQ/L Chloride Level 107 MEQ/L 110 MEQ/L Carbon Dioxide Level 29.3 MEQ/L 27.9 MEQ/L Anion Gap 8 MEQ/L 7 MEQ/L Estimat Glomerular Filtration Rate 92 ML/MIN 102 ML/MIN Test 01/17/18 16:51 01/18/18 05:45 Potassium Level 3.0 MEQ/L 3.0 MEQ/L White Blood Count 10.7 TH/MM3 Red Blood Count 2.34 MIL/MM3 Hemoglobin 7.2 GM/DL Hematocrit 21.1 % Mean Corpuscular Volume 90.3 FL Mean Corpuscular Hemoglobin 30.7 PG Mean Corpuscular Hemoglobin Concent 34.0 % Red Cell Distribution Width 15.3 % Platelet Count 243 TH/MM3 Mean Platelet Volume 7.9 FL Blood Urea Nitrogen 29 MG/DL Creatinine 0.79 MG/DL Random Glucose 144 MG/DL Calcium Level 8.4 MG/DL Sodium Level 149 MEQ/L Chloride Level 115 MEQ/L Carbon Dioxide Level 26.6 MEQ/L Anion Gap 7 MEQ/L Estimat Glomerular Filtration Rate 98 ML/MIN (Tigre Estrada) Medical Decision Making Impression and Plan Impression: 1. Severe progressive paraplegia. Although he has significant spinal stenosis in the cervical thoracic and lumbar region, his overall presentation and exam suggests that the lumbar stenosis is the immediate cause of his severe lower extremity deficit, positive cauda equina syndrome. 2. Possible sepsis 3. Acute kidney disease 4. 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 Severe lumbar canal stenosis 2. Cauda equina syndrome 3. Cervical degenerative disease with severe stenosis and myelopathy 4. Thoracic disc disease with severe canal stenosis and myelopathy 5. Sepsis 6. Thrombocytopenia 7. Acute kidney disease Postoperative Diagnosis : (1) Cervical disc disease with myelopathy (2) Thoracic disc disease with myelopathy Postoperative Diagnosis : (1) Spinal epidural abscess (2) Thoracic disc disease with myelopathy (3) Lumbar canal stenosis 4. Postoperative lumbar epidural hematoma Respiratory insufficiency, CXR w/left lung hazy opacity suggestive of fluid. Ileus suggested by abdominal x-ray . Patient continues to do better. He is awake & alert. Trached & on T-piece. Stable motor exam BUE, no lower extremity movement or sensation to touch but did feel nailbed pressure. T max 99.7 yesterday evening. GUIDO #1 (lower back) & #2 (cervical) d/c'd [id number]/07/13. GUIDO drains #3 (lumbar) & # 4 (lumbar) d/c'd . Reviewed labs for today. Leukocytosis resolved but drop in haemoglobin level. Sodium 149. Hypokalemia stable. Wound culture () positive for Escherichia coli, final . POD #15 () s/p: 1. Bilateral L1-2, L2-3, L3 4, L4 5 decompressive semi-laminectomy, medial facetectomy for spinal canal decompression. POD #11 (-) s/p: Procedure number 1. C2-C6 decompressive laminectomy Procedure number 2,Via separate incision: T2-T6 decompressive laminectomy POD #10 (-) s/p: Part 2 of planned two-part procedure. Procedure #1: 1. [id number] decompressive semi-laminectomy, evacuation thoracic epidural abscess 2. Evacuation thoracic epidural abscess. Procedure #2: Via separate incision. 1. Revision L2-3, L3 4, L4 5 decompressive semi-laminectomy 2. Evacuation lumbar epidural abscess 3. Evacuation of postoperative lumbar epidural hematoma Plan: Primary & critical care management per Insurance Office Manager. Neuro checks. Turn patient q2h but keep the patient off of his back. Physical & Occupational Therapy eval & tx. Mechanical DVT prophylaxis. Okay for pharmacologic DVT prophylaxis. (Tigre Estrada) Attending Statement The exam, history, and the medical decision-making described in the above note were completed with the assistance of the mid-level provider. I reviewed and agree with the findings presented. I attest that I had a [id number] encounter with the patient on the same day, and personally performed and documented my assessment and findings in the medical record. Tracheostomy in place. Out of bed in chair Trace movement proximal left lower extremity Indicates positive sensation left foot Moderate strength upper extremities Discussed with family Continue therapy, Will need inpatient rehabilitation (Jerry Chakraborty MD) Tigre Estrada Jan 18, 2018 10:47 Jerry Chakraborty MD Jan 19, 2018 22:25
--- NOTE | 2018-01-18 14:12 | HHI.IDPN ---
Subjective Subjective Remarks ID COVERAGE Mr. Reeves is a 67 y/o CM with history of BPH who underwent a prostate biopsy one week ago, on 12/27/17. On the evening of 12/29/17 he developed fever and chills, low back pain, and lower extremity numbness and paresthesias and muscle spasm. He was seen by his primary care physician and was given medication including muscle relaxant. The symptoms persisted and he returned to his primary care physician on 01/01/18 and was given additional medications including Cipro and medrol dose pack. On 01/02/2018 patient woke up with increased lower extremity weakness and numbness, and fell in the shower in the morning, after which he was unable to ambulate or lift his legs off the bed , and continued to experience pain in the lower back. He went to the emergency room at [facility], and was given additional medication injections. He could not lift his legs off the bed or ambulate in the emergency room, and was taken out to his car and lifted into the car and sent home again. He fell in the driveway again trying to get back into the house. He apparently did not urinate for the entire day. He has no complaint of pain which is numbness paresthesias in the upper extremities. Reportedly on admission there was no numbness or paresthesias over the chest or abdomen or pelvic region. The MRI of thoracic spine shows severe canal stenosis at T2-3 and T5-6 level with cord compressions, complete or near complete canal obliteration at L2-3 L3- 4 and severe multilevel canal stenosis of the C-spine. Entire spine including C spine shows areas of stenosis. Upon my discussion with patient had to be emergently taken to the OR for decompression. Intraop cultures were taken and no hardware placed at present time but it appears that patient will need more surgeries. The MRIs done were non contrast due to Acute renal failure on admission and cannot be repeated. Per dw plan is to treat as epidural abscess stone since patient was treated for few days with antibiotics prior to arrival and also due to patient needing hardware placement which can be seeded. Previously, Intubated, being weaned off sedation, UO is good peck in place. Not on any pressors. There is a plan wean and extubate. ID consulted for evaluation and Management of GN madonna bacteremia (E.coli CTX M negative) and possible epidural abscess. Patient underwent procedure C2-C6 decompressive laminectomy, procedure to T2-T6 decompressive laminectomy as well as lumbar. (Separate incisions) by Dr. Chakraborty Notes reviewed Temps ok Has been on T-piece S/P trach 01/13 - has blood secretions Has evidence of lumbar and thoracic epidural abscess. [place] J collar in place. BP ok Not on pressors. Has some movement of UE, none in LE Cultures reviewed WBC normal Antibiotics Fortaz Current Medications Medications (Trade) Dose Ordered Sig/Kaveh Route Start Time Stop Time Status Last Admin (Robaxin) 500 mg QID PO 01/03/18 09:00 01/18/18 13:00 (Flomax) 0.4 mg HS PO 01/03/18 21:00 01/15/18 20:14 (Lipitor) 40 mg DAILY PO 01/03/18 09:00 01/18/18 08:03 (NS Flush) 2 ml UNSCH PRN IV FLUSH 01/03/18 05:00 (NS Flush) 2 ml BID IV FLUSH 01/03/18 09:00 01/18/18 08:05 (Tylenol) 650 mg Q6H PRN PO 01/03/18 05:00 01/12/18 16:29 (Zofran Inj) 4 mg Q6H PRN IV PUSH 01/03/18 05:00 01/05/18 15:50 (Roxana-Colace) 1 tab BID PO 01/03/18 09:00 01/17/18 20:23 (Tears Naturale Opth Soln) 1 drop Q8HR EACH EYE 01/03/18 14:00 01/18/18 13:01 (Albuterol Neb) 2.5 mg Q2HR NEB PRN NEB 01/03/18 10:00 01/09/18 11:30 (Pepcid) 20 mg BID PO 01/04/18 21:00 01/18/18 08:02 (K-Phos Neutral) 250 mg Q6HR PO 01/05/18 18:00 01/18/18 12:00 (Morphine Inj) 2 mg Q4H PRN IV PUSH 01/05/18 15:45 01/17/18 20:28 Ceftazidime 2000 mg/Sodium Chloride 100 ml @ 200 mls/hr Q8H IV 01/06/18 14:00 01/18/18 13:01 (Dulcolax Supp) 10 mg DAILY RECTAL 01/09/18 16:15 01/11/18 08:07 Potassium Chloride 100 ml @ 50 mls/hr Q2H PRN IV 01/12/18 08:30 01/18/18 01:58 Potassium Chloride 100 ml @ 50 mls/hr Q2H PRN IV 01/12/18 08:30 (K-Lyte Cl Eff) 50 meq UNSCH PRN PO 01/12/18 08:30 01/15/18 17:45 Potassium Chloride 100 ml @ 25 mls/hr UNSCH PRN IV 01/12/18 08:30 01/17/18 01:03 Potassium Chloride 100 ml @ 50 mls/hr Q2H PRN IV 01/12/18 08:30 Magnesium Sulfate 4 gm/Sodium Chloride 100 ml @ 50 mls/hr UNSCH PRN IV 01/12/18 08:30 01/16/18 09:40 (Mag-Ox) 800 mg UNSCH PRN PO 01/12/18 08:30 Magnesium Sulfate 2 gm/Sodium Chloride 100 ml @ 50 mls/hr UNSCH PRN IV 01/12/18 08:30 (K-Phos) 2,000 mg Q4H PRN PO 01/12/18 08:30 Sodium Phosphate 30 mmol/Sodium Chloride 250 ml @ 42 mls/hr UNSCH PRN IV 01/12/18 08:30 (K-Phos) 2,000 mg UNSCH PRN PO/TUBE 01/12/18 08:30 Potassium Phosphate 30 mmol/ Sodium Chloride 260 ml @ 42 mls/hr UNSCH PRN IV 01/12/18 08:30 (Miralax) 17 gm BID PO 01/12/18 09:00 Future hold 01/17/18 20:23 (Lactulose Liq) 30 ml BID PO 01/12/18 09:00 Future hold 01/17/18 20:23 (Heparin Inj) 5,000 units Q8HR SQ 01/13/18 14:00 01/18/18 13:01 (Lasix Inj) 40 mg Q8H IV PUSH 01/14/18 12:00 01/18/18 12:00 Albumin Human 100 ml @ 60 mls/hr Q8H IV 01/14/18 12:00 01/18/18 12:00 (Heparin Central Flush) See Protocol DAILY IV FLUSH 01/15/18 09:00 01/18/18 08:03 (Heparin Central Flush) See Protocol UNSCH PRN IV FLUSH 01/14/18 21:15 (NS Flush) UNSCH PRN IV FLUSH 01/14/18 21:15 (Roxicodone Intensol Liq) 10 mg Q6H PRN PO 01/16/18 10:00 01/18/18 10:58 (Neurontin Liq) 300 mg TID NG 01/16/18 09:00 01/18/18 13:00 (Free Water) VOLUME: 200 ML Q6HR G-TUBE 01/17/18 07:30 01/18/18 12:00 Lines Line sites with no e.o infection - LSC Past Medical History Depression BPH Hypothyroidism Past Surgical History Prostate biopsy, Tonsillectomy, history of kidney surgery. Prostate surgery Allergies: Coded Allergies: No Known Allergies (Unverified , 01/02/18) Objective . Vital Signs Date Time Temp Pulse Resp B/P (MAP) Pulse Ox O2 Delivery O2 Flow Rate FiO2 01/18/18 14:01 94 01/18/18 12:00 89 01/18/18 12:00 98.9 99 18 123/52 (75) 99 01/18/18 10:00 90 01/18/18 08:00 98.6 90 22 152/69 (96) 98 01/18/18 08:00 86 01/18/18 07:34 99 T-piece 35 01/18/18 07:00 99 T-Piece 28 01/18/18 06:00 78 01/18/18 04:00 86 01/18/18 04:00 99.0 86 21 138/83 (101) 100 01/18/18 02:00 98 01/18/18 01:59 20 01/18/18 00:00 99.3 96 20 109/59 (76) 98 01/18/18 00:00 96 01/17/18 22:00 98 01/17/18 21:47 99 T-piece 5.00 35 01/17/18 20:33 22 01/17/18 20:00 106 01/17/18 20:00 99.7 106 26 150/82 (104) 98 01/17/18 19:00 100 T-Piece 35 01/17/18 18:00 84 01/17/18 16:00 98.0 90 24 112/64 (80) 98 . Laboratory Tests Test 01/17/18 06:30 01/18/18 05:45 White Blood Count 13.1 TH/MM3 10.7 TH/MM3 Red Blood Count 2.52 MIL/MM3 2.34 MIL/MM3 Hemoglobin 7.7 GM/DL 7.2 GM/DL Hematocrit 22.5 % 21.1 % Mean Corpuscular Volume 89.2 FL 90.3 FL Mean Corpuscular Hemoglobin 30.5 PG 30.7 PG Mean Corpuscular Hemoglobin Concent 34.2 % 34.0 % Red Cell Distribution Width 14.7 % 15.3 % Platelet Count 329 TH/MM3 243 TH/MM3 Mean Platelet Volume 7.8 FL 7.9 FL Laboratory Tests Test 01/16/18 21:45 01/17/18 06:30 01/17/18 16:51 01/18/18 05:45 Potassium Level 2.8 MEQ/L 3.0 MEQ/L 3.0 MEQ/L 3.0 MEQ/L Blood Urea Nitrogen 25 MG/DL 29 MG/DL Creatinine 0.76 MG/DL 0.79 MG/DL Random Glucose 140 MG/DL 144 MG/DL Calcium Level 8.5 MG/DL 8.4 MG/DL Sodium Level 145 MEQ/L 149 MEQ/L Chloride Level 110 MEQ/L 115 MEQ/L Carbon Dioxide Level 27.9 MEQ/L 26.6 MEQ/L Anion Gap 7 MEQ/L 7 MEQ/L Estimat Glomerular Filtration Rate 102 ML/MIN 98 ML/MIN Imaging Chest X-Ray 01/13/18 0000 Signed Impressions: Service Date/Time: January 17:47 - CONCLUSION: 1. Interval removal of endotracheal tube and placement of tracheostomy tube. 2. Hazy opacity is now noted projected over the left lung. This could represent post erlying fluid. Jorge Luis Puri MD Abdomen X-Ray 01/12/18 0600 Signed Impressions: Service Date/Time: Friday, January 12, 2018 04:57 - CONCLUSION: Mild gaseous distention possibly ileus. Hussein Fontaine MD Thoracic Spine X-Ray 01/08/18 0000 Signed Impressions: Service Date/Time: Sunday, January 07, 2018 21:17 - CONCLUSION: Intraoperative spot images of the thoracic spine for localization purposes. Marcial Redmond MD Lumbar Spine X-Ray 01/08/18 Signed Impressions: Service Date/Time: Sunday, January 07, 2018 21:17 - CONCLUSION: Single intraoperative spot image for localization purposes. Marcial Redmond MD Thoracic Spine MRI 01/06/18 Signed Impressions: Service Date/Time: January 14:23 - CONCLUSION: 1. Multilevel cord compression is due predominantly to multiple disc protrusions. Significant cord compression is present at least 6 levels. There is also cord compression posteriorly at the T10 level due to a fluid collection in the midline which measures 6 mm in AP dimension. 2. There is also focal subcutaneous right parasagittal fluid collection at T10 and T11 which does not demonstrate peripheral contrast enhancement. An abscess is suspected. Jagjit Wilkinson MD Chest CT 01/06/18 Signed Impressions: Service Date/Time: January 18:51 - CONCLUSION: 1. No abscess identified outside of the thoracic spinal canal. Small bilateral pleural effusions. NG coiled in the stomach. Frederick Rizzo MD Cervical Spine MRI 01/06/18 Signed Impressions: Service Date/Time: January 14:23 - CONCLUSION: 1. Severe degenerative changes with severe spinal stenosis at C2-3, C3-4, C4-5 and C5-6. There is moderate spinal stenosis at C6-7 and C7-T1. Overall assessment of the cord is limited due to motion artifact. I do not definitively see edema within the cord however there is significant flattening of the cord at multiple levels. 2. No significant abnormal contrast enhancement identified. Leonardo Sorenson MD Brain MRI 01/06/18 Signed Impressions: Service Date/Time: January 14:23 - CONCLUSION: 1. Negative MRI of the brain with and without contrast. Jagjit Wilkinson MD Abdomen/Pelvis CT 01/06/18 0000 Signed Impressions: Service Date/Time: January 18:51 - CONCLUSION: 1. Multiple laminectomy defects in the lumbar spine with some locules of air both within the canal and within the L2 vertebral body which could be related to infection. Cannot exclude abscess formation within the canal. 2. 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 3. Diffuse ileus. 4. Small effusions and mild anasarca. 5. Peck catheter in decompressed bladder. NG coiled in stomach. Frederick Rizzo MD Lumbar Spine MRI 01/05/18 0000 Signed Impressions: Service Date/Time: Friday, January 05, 2018 14:27 - CONCLUSION: 1. Extensive postsurgical changes with apparent left decompressive laminectomy leftward from L1 to through L4-5. 2. There is a well-circumscribed 1.4 cm cystic structure midline just posterior to the thecal sac at L4-5 which was not clearly present previously. May represent a small seroma which could result in some degree of central spinal stenosis despite the left laminectomy. 3. In addition, severe narrowing of the right L4-5 neural foramen with almost certain compromise of the right L4 nerve root. Emir Bowles MD Physical Exam GENERAL: awake, on T-pice, NAD. Up in stretcher chair SKIN: Warm and dry. Edematous HEAD: Normocephalic. EYES: Pupils equal round. No scleral icterus. No injection or drainage. ENT: Moist mucosa NECK: [place] J collar in place. Trach site ok CARDIOVASCULAR: Tachycardic. RESPIRATORY: Has scattered rhonchi GASTROINTESTINAL: Abdomen non-tender, soft, slightly distended. : Peck catheter draining gila colored urine. Significant scrotal edema. BACK: Surgical incisions healing well per nursing report. MUSCULOSKELETAL: Extremities without clubbing, cyanosis. Generalized edema +1 of extremities. NEUROLOGICAL: Opens eyes follows commands. Moves UE at wrist level. No movement in BLE. LINES: Left IJ central line in place. Assessment & Plan Remarks Severe Sepsis present on admission (leucocytosis, Tachycardia, source: bacteremia and epidural abscess. E.coli bacteremia high grade E.Coli UTI recent prostate biopsy. PNA aspiration/HCAP Epidural abscess, thoracic and lumbar, C/S E coli - S/P surgery and evacuation Recent history of prostate biopsy as risk factor for E.coli bacteremia. Incomplete Quadriparesis. Paraparesis present on admission. Recs: Continue Ceftazidime IV for E.coli Sepsis and Osteomyelitis of C,T,L spine plus epidural abscesses. Tolerating T-piece Monitor respiratory status Monitor progress Laura Rocha MD Jan 18, 2018 14:12
[2018-01-18] MEDS: MORPHINE SULFATE 2 MG/ML SYRINGE IV PUSH PRN (17:32)
[2018-01-18] MEDS: TAMSULOSIN HCL 0.4 MG CAP PO SCH (21:00)
[2018-01-19] VITALS (14 sets, daily range): BP systolic 101–129; BP diastolic 56–72; PULSE 73–106; RESP 16–25; TEMP 97–99.1; O2SAT 97–99
[2018-01-19] MEDS: MORPHINE SULFATE 2 MG/ML SYRINGE IV PUSH PRN ×3 (01:41→17:15)
[2018-01-19] MEDS: POTASSIUM CHLOR 40 MEQ PREMIX 100 ML IV PRN (02:20)
[2018-01-19] MEDS: ALBUMIN 25% INJ 100 ML IV SCH ×3 (04:20→21:24)
[2018-01-19] MEDS: FUROSEMIDE 40 MG/4 ML VIAL IV PUSH SCH ×3 (04:20→21:24)
[2018-01-19 04:54] LABS: HEMATOCRIT 21.1 % (39.0-51.0); HEMOGLOBIN 7.2 GM/DL (13.0-17.0); MEAN CELL VOLUME 89.5 FL (80.0-100.0); MEAN CORPUSCULAR HEMOGLOBIN 30.7 PG (27.0-34.0); MEAN CORPUSCULAR HGB CONC 34.4 % (32.0-36.0); PLATELET COUNT 235 TH/MM3 (150-450); RED BLOOD COUNT 2.36 MIL/MM3 (4.50-5.90); RED CELL DISTRIBUTION WIDTH 14.9 % (11.6-17.2); WHITE BLOOD COUNT 9.6 TH/MM3 (4.0-11.0)
[2018-01-19 05:10] LABS: BICARBONATE 30.7 MEQ/L (21.0-32.0); CALCIUM 8.7 MG/DL (8.5-10.1); CREATININE 0.78 MG/DL (0.60-1.30)
[2018-01-19] MEDS: HEPARIN SODIUM - SQ 10,000 UNITS/ML VIAL SQ SCH ×3 (06:48→21:23)
[2018-01-19] MEDS: ARTIFICIAL TEARS OPTH SOLN 15 ML BTL EACH EYE SCH ×3 (06:48→22:00)
[2018-01-19] MEDS: FREE WATER G-TUBE SCH ×5 (06:48→23:30)
[2018-01-19] MEDS: POTASSIUM PHOSPHATE/SODIUM PHOSPHATE 250 MG TAB PO SCH ×5 (06:48→23:30)
[2018-01-19] MEDS: cefTAZidime INJ 2,000 MG in SODIUM CHLORIDE 0.9% INJ 100 ML IV SCH ×3 (06:48→21:22)
--- NOTE | 2018-01-19 08:28 | HHI.PR ---
Subjective Remarks Follow up for C, T, L spine osteomyelitis, bacteremia, respiratory failure. Patient is doing well. Afebrile. Has NG tube in place. He had difficulty tolerating oral food. Speech therapy evaluated patient and recommended against oral food. Objective Vitals Vital Signs Date Time Temp Pulse Resp B/P (MAP) Pulse Ox O2 Delivery O2 Flow Rate FiO2 01/19/18 08:00 106 01/19/18 07:00 99 T-Piece 28 01/19/18 06:00 104 01/19/18 04:00 98.0 106 25 122/72 (89) 98 01/19/18 04:00 106 01/19/18 02:00 94 01/19/18 00:00 88 01/19/18 00:00 98.4 88 16 129/66 (87) 97 01/18/18 22:00 82 01/18/18 21:57 99 T-piece 28 01/18/18 20:00 98.1 86 22 100/53 (69) 99 01/18/18 20:00 86 01/18/18 19:00 99 T-Piece 28 01/18/18 18:00 89 01/18/18 17:37 20 01/18/18 16:00 107/57 (74) 01/18/18 16:00 89 01/18/18 14:01 94 01/18/18 12:00 89 01/18/18 12:00 98.9 99 18 123/52 (75) 99 01/18/18 10:00 90 I/O 01/18/18 01/18/18 01/18/18 01/19/18 01/19/18 01/19/18 06:59 14:59 22:59 06:59 14:59 22:59 Intake Total 1603 ml 1050 ml 1360 ml Output Total 2550 ml 2050 ml 3700 ml Balance -947 ml -1000 ml -2340 ml Intake Oral 50 ml 100 ml IV Total 500 ml 200 ml 200 ml Tube Feeding 643 ml 400 ml 660 ml Tube Irrigant 460 ml 400 ml 400 ml Output Urine Total 2550 ml 2000 ml 3650 ml Stool Total 0 ml 50 ml 50 ml Result Diagram: 01/19/18 0420 01/19/18 0420 Imaging Last Impressions Chest X-Ray 01/13/18 0000 Signed Impressions: Service Date/Time: January 17:47 - CONCLUSION: 1. Interval removal of endotracheal tube and placement of tracheostomy tube. 2. Hazy opacity is now noted projected over the left lung. This could represent post erlying fluid. Jorge Luis Puri MD Abdomen X-Ray 01/12/18 0600 Signed Impressions: Service Date/Time: Friday, January 12, 2018 04:57 - CONCLUSION: Mild gaseous distention possibly ileus. Hussein Fontaine MD Thoracic Spine X-Ray 01/08/18 0000 Signed Impressions: Service Date/Time: Sunday, January 07, 2018 21:17 - CONCLUSION: Intraoperative spot images of the thoracic spine for localization purposes. Marcial Redmond MD Lumbar Spine X-Ray 01/08/18 0000 Signed Impressions: Service Date/Time: Sunday, January 07, 2018 21:17 - CONCLUSION: Single intraoperative spot image for localization purposes. Marcial Redmond MD Thoracic Spine MRI 01/06/18 0000 Signed Impressions: Service Date/Time: January 14:23 - CONCLUSION: 1. Multilevel cord compression is due predominantly to multiple disc protrusions. Significant cord compression is present at least 6 levels. There is also cord compression posteriorly at the T10 level due to a fluid collection in the midline which measures 6 mm in AP dimension. 2. There is also focal subcutaneous right parasagittal fluid collection at T10 and T11 which does not demonstrate peripheral contrast enhancement. An abscess is suspected. Jagjit Wilkinson MD Chest CT 01/06/18 0000 Signed Impressions: Service Date/Time: January 18:51 - CONCLUSION: 1. No abscess identified outside of the thoracic spinal canal. Small bilateral pleural effusions. NG coiled in the stomach. Frederick Rizzo MD Cervical Spine MRI 01/06/18 0000 Signed Impressions: Service Date/Time: January 14:23 - CONCLUSION: 1. Severe degenerative changes with severe spinal stenosis at C2-3, C3-4, C4-5 and C5-6. There is moderate spinal stenosis at C6-7 and C7-T1. Overall assessment of the cord is limited due to motion artifact. I do not definitively see edema within the cord however there is significant flattening of the cord at multiple levels. 2. No significant abnormal contrast enhancement identified. Leonardo Sorenson MD Brain MRI 01/06/18 0000 Signed Impressions: Service Date/Time: January 14:23 - CONCLUSION: 1. Negative MRI of the brain with and without contrast. Jagjit Wilkinson MD Abdomen/Pelvis CT 01/06/18 0000 Signed Impressions: Service Date/Time: January 18:51 - CONCLUSION: 1. Multiple laminectomy defects in the lumbar spine with some locules of air both within the canal and within the L2 vertebral body which could be related to infection. Cannot exclude abscess formation within the canal. 2. 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 3. Diffuse ileus. 4. Small effusions and mild anasarca. 5. Peck catheter in decompressed bladder. NG coiled in stomach. Frederick Rizzo MD Lumbar Spine MRI 01/05/18 0000 Signed Impressions: Service Date/Time: Friday, January 05, 2018 14:27 - CONCLUSION: 1. Extensive postsurgical changes with apparent left decompressive laminectomy leftward from L1 to through L4-5. 2. There is a well-circumscribed 1.4 cm cystic structure midline just posterior to the thecal sac at L4-5 which was not clearly present previously. May represent a small seroma which could result in some degree of central spinal stenosis despite the left laminectomy. 3. In addition, severe narrowing of the right L4-5 neural foramen with almost certain compromise of the right L4 nerve root. Emir Bowles MD Objective Remarks GENERAL: Alert, follows commands, Pleasant. SKIN: Warm. HEAD: Normocephalic. EYES: No scleral icterus. No injection or drainage. NECK: Supple, trachea midline. trach in place, no evidence of bleeding. c- collar in place. CARDIOVASCULAR: normal rate, regular rhythm. sinus. No JVD. RESPIRATORY: Equal chest rise. t-piece. no accessory muscle use. GASTROINTESTINAL: Abdomen soft, mildly distended. nontender. no guarding. MUSCULOSKELETAL: well perfused limbs. NEURO EXAM: No movement of lower extremities. Procedures 01/03/2018 1. Bilateral L1-2, L2-3, L3 4, L4 5 decompressive semi-laminectomy, medial facetectomy for spinal canal decompression. 01/06/2018, 01/07/2018 Procedure number 1. C2-C6 decompressive laminectomy Procedure number 2,Via separate incision: T2-T6 decompressive laminectomy A/P Problem List: (1) Spinal cord compression ICD Code: G95.20 - Unspecified cord compression (2) Lumbar canal stenosis ICD Code: M48.061 - Spinal stenosis, lumbar region without neurogenic claudication (3) Sepsis ICD Code: A41.9 - Sepsis, unspecified organism (4) UTI (urinary tract infection) ICD Code: N39.0 - Urinary tract infection, site not specified (5) Acute hypoxemic respiratory failure ICD Code: J96.01 - Acute respiratory failure with hypoxia (6) Thrombocytopenia ICD Code: D69.6 - Thrombocytopenia, unspecified (7) VALENCIA (acute kidney injury) ICD Code: N17.9 - Acute kidney failure, unspecified (8) Bacteremia ICD Code: R78.81 - Bacteremia (9) Osteoporosis ICD Code: M81.0 - Age-related osteoporosis without current pathological fracture (10) Altered mental status ICD Code: R41.82 - Altered mental status, unspecified (11) Acute ascending myelitis ICD Code: G04.91 - Myelitis, unspecified (12) Ileus ICD Code: K56.7 - Ileus, unspecified Status: Acute Assessment and Plan Mr. Reeves is a 67 year old male who presented to the emergency department on 01/02/2018 lower extremity numbness and weakness that began on 12/31/2017. Patient underwent prostate biopsy by urology 6 days prior to this admission. Patient tolerated the procedure and was able to go back to work. However within 24-48 hours he started experiencing fever and chills with T-max 10 1F. He went to his primary care physician who treated him with muscle relaxer and discharged home with Flexeril. He went back to his primary care physician and he was sent home on ciprofloxacin. On the day of admission patient fell in the shower due to weakness in his legs and went to [facility]. He received lidocaine patch to his left side of his low back and intramuscular injection of Decadron, Toradol and morphine and also Ativan orally for anxiety. He went home and fell again and was unable to walk. He apparently did not urinate the entire day upon admission MRI of the thoracic spine shows severe canal stenosis at T2-T3 and T5-T6 level with cord compressions complete or near complete canal obliteration at L2-3 and L3-4 and severe multilevel stenosis of the C-spine. Patient was emergently taken to the OR by neurosurgery Dr. Chakraborty. Was managed in the ICU and extubated on 01/03/2018. He was subsequently transferred to the medical floor. Critical care was again consulted on 01/07/2018 due to respiratory failure. Patient required pressors for septic shock. He underwent tracheostomy on 01/13/2018. He was subsequently transferred to hospitalist service on 2017. Neuro/Psych: Postop day #14 Bilateral L1-2, L2-3, L3 4, L4 5 decompressive semi-laminectomy, medial facetectomy for spinal canal decompression. Depression/anxiety Ascending myelopathy Spinal abscess C-spine revealed cord compression C2 through C4 and C4 through C6. T-spine 2-3/ 5 6 and lumbar spine T throughout L2 with essentially ablation of the cord from L2 through L5. Status post emergent surgery per Dr. Chakraborty 01/03 Acetaminophen 650 mg p.o. every 6 hours as needed pain 1-5/fever oxycodone and Morphine IV PRN for pain Neurochecks CV: Dyslipidemia Severe sepsis- resolved. septic shock- resolved. off vasopressors good diuresis. continue lasix 40mg iv q8h with albumin Currently on atorvastatin 40 mg p.o. daily. Hospital substitution for rosuvastatin 20 mg p.o. daily s/p hydrocortisone stress dose steroids (therapy completed 01/15) Resp: Acute hypoxic hypercarbic respiratory failure- resolving Nebs Wean FiO2 for goal SPO2 greater than 90% OOB to stretcher chair daily PT/OT/Speech therapy GI: Neurogenic ileus- resolving. Acute protein calorie malnutrition- moderate tube feeds. senna/colace, lactulose, miralax, dulcolax supp daily. prn mag citrate if no BM daily. Likely ileus is multifactorial including severe sepsis and postoperative pain, likely compounded by myelopathy and neurogenic component to his ileus Famotidine for GI prophylaxis trend prealbumin weekly : BPH Maintain Peck catheter per urology. have discussed with urology: cannot I/O straight cath for now. recommended changing peck catheter Monthly. Currently on tamsulosin 0.4 mg p.o. daily Recent prostate biopsy. Endo: Sliding scale insulin Accu-Cheks to maintain euglycemia/low regimen Renal: Acute kidney injury- resolved Avoid nephrotoxic drugs Monitor urine output Accurate I's and O's Heme: Thrombocytopenia likely secondary to sepsis- resolved. Anemia secondary to acute blood loss Haptoglobin high. LDH normal. Peripheral smear no signs of schistocytes total bilirubin normal. Status post 2 pack platelets 01/04. Followed by hematology no indication for transfusion ID: Severe Sepsis present on admission (leucocytosis, Tachycardia, source: bacteremia and epidural abscess. E.coli bacteremia high grade E.Coli UTI recent prostate biopsy. PNA aspiration/HCAP Epidural abscess, thoracic and lumbar, C/S E coli C, T, L spine osteomyelitis ID following. Ceftazidime IV for 10 weeks from 01/08/2018. Weekly CBC with diff, CMP, CRP while on IV antibiotics. Repeat imaging may be needed in 4-6 weeks to assess progress. FEN Hypokalemia- resolved Hypernatremia Hypokalemia resolved. Na is 149. Probably 1-2 L of free water deficit. MSK: Access - 01/15 PICC line Peck: keep per urology. change monthly. Full code. Famotidine, SubQ Heparin. Problem Qualifiers (1) Lumbar canal stenosis: Qualified Codes: M48.061 - Spinal stenosis, lumbar region without neurogenic claudication (2) UTI (urinary tract infection): Qualified Codes: N30.00 - Acute cystitis without hematuria (3) Osteoporosis: Qualified Codes: M81.0 - Age-related osteoporosis without current pathological fracture (4) Altered mental status: Qualified Codes: R40.4 - Transient alteration of awareness Dwayne Russell DO Jan 19, 2018 08:28
[2018-01-19] MEDS: GABAPENTIN 250 MG/5 ML UDC NG SCH ×3 (09:00→17:14)
[2018-01-19] MEDS: BISACODYL 10 MG SUPP RECTAL SCH (09:00)
[2018-01-19] MEDS: POLYETHYLENE GLYCOL 17 GM PKG PO SCH ×2 (09:00→21:00)
[2018-01-19] MEDS: DOCUSATE SODIUM 50 MG/SENNA 8.6 MG TAB PO SCH ×2 (09:00→21:00)
[2018-01-19] MEDS: SODIUM CHLORIDE 0.9% FLUSH 10 ML FLUSH IV FLUSH SCH ×2 (09:00→21:00)
[2018-01-19] MEDS: LACTULOSE SYRUP 20 GM/30 ML CUP PO SCH ×2 (09:00→21:00)
[2018-01-19] MEDS: ATORVASTATIN 40 MG TAB PO SCH (09:17)
[2018-01-19] MEDS: METHOCARBAMOL 500 MG TAB PO SCH ×4 (09:17→21:23)
[2018-01-19] MEDS: FAMOTIDINE 20 MG TAB PO SCH ×2 (09:17→21:23)
--- NOTE | 2018-01-19 10:54 | HHI.NSPN ---
(Tigre Estrada) History Chief Complaint: Unable to move legs. (Tigre Estrada) Interval History 01/03: 67-year-old male who underwent a prostate biopsy one week ago, on . He states that on the evening of 12/29/17 on into the morning of 12/30/17, he developed fever and chills, low back pain, and lower extremity numbness and paresthesias and muscle spasm. He was seen by his primary care physician and was given medication including muscle relaxant. The symptoms persisted and he returned to his primary care physician on Wednesday , 01/01/18 and was given additional medications including Cipro. He awoke on 01/02/2018 with increased lower extremity weakness and numbness, and fell in the shower in the morning, after which he was unable to ambulate or lift his legs off the bed, and continued to experience pain in the lower back. He went to the emergency room at [facility], and was given additional medication injections. He states that he could not lift his legs off the bed or ambulate in the emergency room, and was taken out to his car and lifted into the car and sent home again. He fell in the driveway again trying to get back into the house. He apparently did not urinate for the entire day. He has no complaint of pain which is numbness paresthesias in the upper extremities. No numbness or paresthesias over the chest or abdomen or pelvic region. The patient was emergently taken to the operating room for a bilateral L1-2, L2- 3, L3 4, L4 5 decompressive semi-laminectomy, medial facetectomy for spinal canal decompression. Post-operatively the patient remained intubated and was admitted to [facility] for further care and monitoring. 01/04: When seen this afternoon the patient has been extubated. He is awake and alert and readily interacts. He does report pain to the neck and the lower back. He has no numbness, tingling or weakness to the upper extremities but does say he will have pain shooting down them if he moves wrong. He denies any pain to the lower extremities but does have numbness to both feet and about the only movement he is able to do is move his knees medially and laterally. Upon examination the patient's sensorimotor exam is improved from pre-operatively 01/05: The patient desaturated this morning and a Halicat was initiated. From the EMR Nursing reported that the patient was lethargic and difficult to arouse. His sat was in the 80s and he did have a fever of 102F. He was therefore transferred back to [facility]. A chest x-ray demonstrated a left lower lobe consolidation. His blood, urine and lumbar spine wound cultures have all come back positive for Escherichia coli. When seen this afternoon the patient was awake, alert and readily interacted. He was visiting with his significant other. His upper extremity examination was variable with some improvement and some decline. His sensation and motor strength to the lower extremities had declined. The surgical incision looked good upon examination and the GUIDO drain was removed. 01/06: This afternoon the patient is on a nonrebreather mask when seen, he is tachypneic and laboured. He says he has some low back pain, especially at night. He denies any neck pain or headache. He has worsening of his muscle strength to the upper extremities and it remains poor to the lower. 01/07: The patient was urgently intubated yesterday evening for worsening respiratory status and remains so this morning. He underwent emergent surgery for decompression of the cervical and thoracic spines. Post-operatively he returned to [facility]. He is sedated with propofol. He has vasopressin and norepinephrine infusing for blood pressure support. He is obtunded but sedated and there is no response to any stimulation. 01/08: Patient sedated with Diprivan and fentanyl drips. He was biting the tube and was also recently placed on Versed. He is not opening eyes or following commands. He remains sedated for vent synchrony. 01/09: Pt sedated with Diprivan and Fentanyl drips. He nods his head slightly to questions. Intubated a/c. RN reports all bandages are dry with only mild post op staining. 01/10: When seen the patient is lethargic. He is sedated with propofol and midazolam. He continues to be intubated and mechanically ventilated. His significant other stated that the patient was awake a few minutes ago. When he called the patient's name he opened both eyes. He did blink to command. There was no motor response to any stimulation. 01/11: This morning the patient is drowsy when seen. He continues to be sedated with propofol and midazolam. He is still intubated and mechanically ventilated. His eyes open to voice. He does not move the extremities to any stimulation even though his sedation is held. 01/12: The patient is drowsy. He is on ketamine for sedation and pain control. He remains intubated and mechanically ventilated. He opened his eyes to voice. He indicated he had no pain. He weakly gripped with the right hand to command and gave a thumbs up. His biomedical service engineer was strong when local noxious stimulation was applied. He had no response with the other extremities to local noxious stimulation. 01/14: When seen the patient is awake. He has been trached and mechanically ventilated. Nursing does say that a CPAP trial may be done today. He nods appropriately. He denies any pain to the neck or back. Upon examination he is able to give a weak hand grasp bilaterally and has muscle contractions to the upper extremities when asked to lift them off the bed. He has no response to noxious stimulation of the lower extremities. He has numbness to the left lower but says the right lower and both upper extremities feel normal. 01/15: doing well, family at beside, remains very weak in extremities 01/16: sitting up in stretcher chair, alert, nursing reports increased sensation in lower extremities, no significant change to motor function. 01/17: The patient is awake and alert in bed watching TV and visiting with his significant other. He is trached and on a T-piece. He does try to verbalise some and nods appropriately. He does have pain to the extremities as well as some decreased sensation. He is moving the upper extremities spontaneously and has trace contraction of the lower extremities. 01/18: This morning the patient is in the cardiac/stretcher chair watching TV with his significant other. He is awake and alert. He says he feels better today and his pain is better also. He is able to move the upper extremities spontaneously but has no movement to the lower extremities. 01/19: When seen the patient is awake and alert in bed visiting with his significant other. Infectious Disease is at the bedside. He indicates he is doing better today than yesterday and denies any pain to the neck, back or extremities. He is moving the upper extremities purposefully but is not able to move the left except for a trace muscle contraction to command. (Tigre Estrada) Exam Results 01/17/18 01/17/18 01/18/18 01/18/18 01/19/18 01/19/18 06:00 18:00 06:00 18:00 06:00 18:00 Intake Total 2142 ml 2665 ml 950 ml 1560 ml Output Total 5925 ml 5425 ml 2050 ml 3700 ml Balance -3783 ml -2760 ml -1100 ml -2140 ml Intake Oral 50 ml 100 ml IV Total 400 ml 500 ml 100 ml 400 ml Tube Feeding 1402 ml 1255 ml 400 ml 660 ml Tube Irrigant 340 ml 910 ml 400 ml 400 ml Output Urine Total 5400 ml 5125 ml 2000 ml 3650 ml Stool Total 525 ml 300 ml 50 ml 50 ml Vital Signs Date Time Temp Pulse Resp B/P (MAP) Pulse Ox O2 Delivery O2 Flow Rate FiO2 01/19/18 10:00 106 01/19/18 09:12 97 T-piece 21 01/19/18 08:00 97.0 103 22 111/59 (76) 98 01/19/18 08:00 106 01/19/18 07:00 99 T-Piece 01/19/18 06:00 104 01/19/18 04:00 98.0 106 25 122/72 (89) 98 01/19/18 04:00 106 01/19/18 02:00 94 01/19/18 00:00 88 01/19/18 00:00 98.4 88 16 129/66 (87) 97 01/18/18 22:00 82 01/18/18 21:57 99 T-piece 01/18/18 20:00 98.1 86 22 100/53 (69) 99 01/18/18 20:00 86 01/18/18 19:00 99 T-Piece 28 01/18/18 18:00 89 01/18/18 17:37 20 01/18/18 16:00 107/57 (74) 01/18/18 16:00 89 01/18/18 14:01 94 01/18/18 12:00 89 01/18/18 12:00 98.9 99 18 123/52 (75) 99 01/18/18 10:00 90 01/18/18 08:00 98.6 90 22 152/69 (96) 98 01/18/18 08:00 86 01/18/18 07:34 99 T-piece 35 01/18/18 07:00 99 T-Piece 28 01/18/18 06:00 78 01/18/18 04:00 86 01/18/18 04:00 99.0 86 21 138/83 (101) 100 01/18/18 02:00 98 01/18/18 01:59 20 01/18/18 00:00 99.3 96 20 109/59 (76) 98 01/18/18 00:00 96 01/17/18 22:00 98 01/17/18 21:47 99 T-piece 5.00 35 01/17/18 20:00 106 01/17/18 20:00 99.7 106 26 150/82 (104) 98 01/17/18 19:00 100 T-Piece 35 01/17/18 18:00 84 01/17/18 16:00 98.0 90 24 112/64 (80) 98 01/17/18 14:00 84 01/17/18 12:00 98.2 98 25 123/72 (89) 96 01/17/18 10:00 84 01/17/18 08:56 97 T-piece 35 01/17/18 08:00 98.7 84 23 146/80 (102) 96 01/17/18 07:00 99 Mechanical Ventilator 35 01/17/18 06:00 84 01/17/18 04:00 98.9 80 16 134/76 (95) 100 01/17/18 04:00 80 01/17/18 02:00 84 01/17/18 00:00 78 01/17/18 00:00 99.1 78 23 120/67 (84) 100 01/16/18 22:08 98 T-piece 6.00 35 01/16/18 22:00 94 01/16/18 20:00 86 01/16/18 20:00 99.8 86 25 122/57 (78) 98 01/16/18 19:00 94 T-Piece 35 01/16/18 16:00 99.2 90 26 136/76 (96) 97 01/16/18 12:00 99.1 91 27 122/66 (72) 96 (Tigre Estrada) Physical Examination GENERAL: Awake & alert. Trached & on T-piece. His skin is cool & dry. HEENT: Normocephalic, atraumatic. NGT. NECK: [place] J cervical collar in place. No JVD. Trached & trachea appears midline. Midline cervical spine NTTP. Surgical incision well-approximated w/ amada, no evident drainage, erythema or streaking noted. MUSCULOSKELETAL: Moving BUE spontaneously & to command, trace muscle contraction w/lower to command. No evident clubbing or deformity. All thoracic & lumbar surgical incisions well-approximated w/amada intact, NTTP, dried serosanguinous drainage to dressing but no erythema, streaking or active drainage. There is a < 1 cm skin tear to the left superior lower thoracic incision w/slight serous drainage but no erythema or streaking. NEUROLOGICAL: Awake & alert. Spontaneous eye opening. Nonverbal, trached, mouths some words. Nodded head appropriately to questions. Patient w/decreased sensation below the knees but o/w sensation intact to light touch to the extremities. Does feel touch & nailbed pressure to left foot but not right. Moving BUE spontaneously & purposefully as well as to command. Trace muscle contraction to BLE to command but no response to noxious stimulation. (Tirge Estrada) Lab, Micro, Other Results Laboratory Tests Test 01/16/18 21:45 01/17/18 06:30 01/17/18 16:51 01/18/18 05:45 Potassium Level 2.8 MEQ/L 3.0 MEQ/L 3.0 MEQ/L 3.0 MEQ/L White Blood Count 13.1 TH/MM3 10.7 TH/MM3 Red Blood Count 2.52 MIL/MM3 2.34 MIL/MM3 Hemoglobin 7.7 GM/DL 7.2 GM/DL Hematocrit 22.5 % 21.1 % Mean Corpuscular Volume 89.2 FL 90.3 FL Mean Corpuscular Hemoglobin 30.5 PG 30.7 PG Mean Corpuscular Hemoglobin Concent 34.2 % 34.0 % Red Cell Distribution Width 14.7 % 15.3 % Platelet Count 329 TH/MM3 243 TH/MM3 Mean Platelet Volume 7.8 FL 7.9 FL Blood Urea Nitrogen 25 MG/DL 29 MG/DL Creatinine 0.76 MG/DL 0.79 MG/DL Random Glucose 140 MG/DL 144 MG/DL Calcium Level 8.5 MG/DL 8.4 MG/DL Sodium Level 145 MEQ/L 149 MEQ/L Chloride Level 110 MEQ/L 115 MEQ/L Carbon Dioxide Level 27.9 MEQ/L 26.6 MEQ/L Anion Gap 7 MEQ/L 7 MEQ/L Estimat Glomerular Filtration Rate 102 ML/MIN 98 ML/MIN Test 01/18/18 23:50 01/19/18 04:20 Potassium Level 3.1 MEQ/L 3.7 MEQ/L White Blood Count 9.6 TH/MM3 Red Blood Count 2.36 MIL/MM3 Hemoglobin 7.2 GM/DL Hematocrit 21.1 % Mean Corpuscular Volume 89.5 FL Mean Corpuscular Hemoglobin 30.7 PG Mean Corpuscular Hemoglobin Concent 34.4 % Red Cell Distribution Width 14.9 % Platelet Count 235 TH/MM3 Mean Platelet Volume 8.0 FL Blood Urea Nitrogen 32 MG/DL Creatinine 0.78 MG/DL Random Glucose 133 MG/DL Calcium Level 8.7 MG/DL Sodium Level 149 MEQ/L Chloride Level 113 MEQ/L Carbon Dioxide Level 30.7 MEQ/L Anion Gap 5 MEQ/L Estimat Glomerular Filtration Rate 99 ML/MIN (Tigre Estrada) Medical Decision Making Impression and Plan Impression: 1. Severe progressive paraplegia. Although he has significant spinal stenosis in the cervical thoracic and lumbar region, his overall presentation and exam suggests that the lumbar stenosis is the immediate cause of his severe lower extremity deficit, positive cauda equina syndrome. 2. Possible sepsis 3. Acute kidney disease 4. 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 Severe lumbar canal stenosis 2. Cauda equina syndrome 3. Cervical degenerative disease with severe stenosis and myelopathy 4. Thoracic disc disease with severe canal stenosis and myelopathy 5. Sepsis 6. Thrombocytopenia 7. Acute kidney disease Postoperative Diagnosis : (1) Cervical disc disease with myelopathy (2) Thoracic disc disease with myelopathy Postoperative Diagnosis : (1) Spinal epidural abscess (2) Thoracic disc disease with myelopathy (3) Lumbar canal stenosis 4. Postoperative lumbar epidural hematoma Respiratory insufficiency, CXR w/left lung hazy opacity suggestive of fluid. Ileus suggested by abdominal x-ray . Patient is doing well. He is awake & alert. Trached & on T-piece. Stable motor exam BUE, trace lower extremity muscle contraction to command but no movement w/ stimulation. Distal lower extremity sensation decreased/absent. Afebrile the past 24 hrs. Tachycardia this morning. GUIDO #1 (lower back) & #2 (cervical) d/c'd f2. GUIDO drains #3 (lumbar) & # 4 (lumbar) d/c'd . Reviewed labs for today. Stable haemoglobin level. Sodium 149. Hypokalemia resolved. Wound culture () positive for Escherichia coli, final . POD #16 () s/p: 1. Bilateral L1-2, L2-3, L3 4, L4 5 decompressive semi-laminectomy, medial facetectomy for spinal canal decompression. POD #12 (-) s/p: Procedure number 1. C2-C6 decompressive laminectomy Procedure number 2,Via separate incision: T2-T6 decompressive laminectomy POD #11 (-) s/p: Part 2 of planned two-part procedure. Procedure #1: 1. [id number] decompressive semi-laminectomy, evacuation thoracic epidural abscess 2. Evacuation thoracic epidural abscess. Procedure #2: Via separate incision. 1. Revision L2-3, L3 4, L4 5 decompressive semi-laminectomy 2. Evacuation lumbar epidural abscess 3. Evacuation of postoperative lumbar epidural hematoma Plan: Discussed plan of care w/patient, significant other, Infectious Disease & Nursing. Primary & critical care management per Clinic Clerk. Neuro checks. Turn patient q2h but keep the patient off of his back. Physical & Occupational Therapy eval & tx. Mechanical DVT prophylaxis. Okay for pharmacologic DVT prophylaxis. Patient is able to be transferred to [facility] for further therapy once arrangements are made. (Tigre Estrada) Attending Statement The exam, history, and the medical decision-making described in the above note were completed with the assistance of the mid-level provider. I reviewed and agree with the findings presented. I attest that I had a [id number] encounter with the patient on the same day, and personally performed and documented my assessment and findings in the medical record. Remains awake and relatively alert Back pain improving Dressings dry Moderate right, mild left upper extremity flexion Persistent diminished hand intrinsics Trace left lower extremity movement Continue to keep the patient off of his multiple spinal incision sites. Continue therapy He will need inpatient rehabilitation (Jerry Chakraborty MD) Tigre EstradaP Jan 19, 2018 10:54 Jerry Chakraborty MD Jan 19, 2018 22:27
--- NOTE | 2018-01-19 11:32 | HHI.IDPN ---
Subjective Subjective Remarks ID COVERAGE Mr. Reeves is a 67 y/o CM with history of BPH who underwent a prostate biopsy one week ago, on 12/27/17. On the evening of 12/29/17 he developed fever and chills, low back pain, and lower extremity numbness and paresthesias and muscle spasm. He was seen by his primary care physician and was given medication including muscle relaxant. The symptoms persisted and he returned to his primary care physician on 01/01/18 and was given additional medications including Cipro and medrol dose pack. On 01/02/2018 patient woke up with increased lower extremity weakness and numbness, and fell in the shower in the morning, after which he was unable to ambulate or lift his legs off the bed , and continued to experience pain in the lower back. He went to the emergency room at [facility], and was given additional medication injections. He could not lift his legs off the bed or ambulate in the emergency room, and was taken out to his car and lifted into the car and sent home again. He fell in the driveway again trying to get back into the house. He apparently did not urinate for the entire day. He has no complaint of pain which is numbness paresthesias in the upper extremities. Reportedly on admission there was no numbness or paresthesias over the chest or abdomen or pelvic region. The MRI of thoracic spine shows severe canal stenosis at T2-3 and T5-6 level with cord compressions, complete or near complete canal obliteration at L2-3 L3- 4 and severe multilevel canal stenosis of the C-spine. Entire spine including C spine shows areas of stenosis. Upon my discussion with patient had to be emergently taken to the OR for decompression. Intraop cultures were taken and no hardware placed at present time but it appears that patient will need more surgeries. The MRIs done were non contrast due to Acute renal failure on admission and cannot be repeated. Per dw plan is to treat as epidural abscess stone since patient was treated for few days with antibiotics prior to arrival and also due to patient needing hardware placement which can be seeded. Previously, Intubated, being weaned off sedation, UO is good peck in place. Not on any pressors. There is a plan wean and extubate. ID consulted for evaluation and Management of GN madonna bacteremia (E.coli CTX M negative) and possible epidural abscess. Patient underwent procedure C2-C6 decompressive laminectomy, procedure to T2-T6 decompressive laminectomy as well as lumbar. (Separate incisions) by Dr. Chakraborty Overnight events reviewed with RN. Sitting in chair bedside with trach collar. Has been on T-piece S/P trach 01/13 [place] J collar in place. BP ok Not on pressors. Has some movement of UE, none in LE. LUE better than RUE raises slightly at elbow level. Has pain sensation in Left great toe but none on Right side. Skin sensation intact at buttock and inner groin level. WBC normal Antibiotics Current Medications Medications (Trade) Dose Ordered Sig/Kaveh Route Start Time Stop Time Status Last Admin (Robaxin) 500 mg QID PO 01/03/18 09:00 01/19/18 09:17 (Flomax) 0.4 mg HS PO 01/03/18 21:00 01/15/18 20:14 (Lipitor) 40 mg DAILY PO 01/03/18 09:00 01/19/18 09:17 (NS Flush) 2 ml UNSCH PRN IV FLUSH 01/03/18 05:00 (NS Flush) 2 ml BID IV FLUSH 01/03/18 09:00 01/19/18 09:00 (Tylenol) 650 mg Q6H PRN PO 01/03/18 05:00 01/12/18 16:29 (Zofran Inj) 4 mg Q6H PRN IV PUSH 01/03/18 05:00 01/05/18 15:50 (Roxana-Colace) 1 tab BID PO 01/03/18 09:00 01/18/18 21:10 (Tears Naturale Opth Soln) 1 drop Q8HR EACH EYE 01/03/18 14:00 01/19/18 06:48 (Albuterol Neb) 2.5 mg Q2HR NEB PRN NEB 01/03/18 10:00 01/09/18 11:30 (Pepcid) 20 mg BID PO 01/04/18 21:00 01/19/18 09:17 (K-Phos Neutral) 250 mg Q6HR PO 01/05/18 18:00 01/19/18 06:48 (Morphine Inj) 2 mg Q4H PRN IV PUSH 01/05/18 15:45 01/19/18 09:19 Ceftazidime 2000 mg/Sodium Chloride 100 ml @ 200 mls/hr Q8H IV 01/06/18 14:00 01/19/18 06:48 (Dulcolax Supp) 10 mg DAILY RECTAL 01/09/18 16:15 01/11/18 08:07 Potassium Chloride 100 ml @ 50 mls/hr Q2H PRN IV 01/12/18 08:30 01/19/18 02:20 Potassium Chloride 100 ml @ 50 mls/hr Q2H PRN IV 01/12/18 08:30 (K-Lyte Cl Eff) 50 meq UNSCH PRN PO 01/12/18 08:30 01/15/18 17:45 Potassium Chloride 100 ml @ 25 mls/hr UNSCH PRN IV 01/12/18 08:30 01/17/18 01:03 Potassium Chloride 100 ml @ 50 mls/hr Q2H PRN IV 01/12/18 08:30 Magnesium Sulfate 4 gm/Sodium Chloride 100 ml @ 50 mls/hr UNSCH PRN IV 01/12/18 08:30 01/16/18 09:40 (Mag-Ox) 800 mg UNSCH PRN PO 01/12/18 08:30 Magnesium Sulfate 2 gm/Sodium Chloride 100 ml @ 50 mls/hr UNSCH PRN IV 01/12/18 08:30 (K-Phos) 2,000 mg Q4H PRN PO 01/12/18 08:30 Sodium Phosphate 30 mmol/Sodium Chloride 250 ml @ 42 mls/hr UNSCH PRN IV 01/12/18 08:30 (K-Phos) 2,000 mg UNSCH PRN PO/TUBE 01/12/18 08:30 Potassium Phosphate 30 mmol/ Sodium Chloride 260 ml @ 42 mls/hr UNSCH PRN IV 01/12/18 08:30 (Miralax) 17 gm BID PO 01/12/18 09:00 Future hold 01/18/18 21:10 (Lactulose Liq) 30 ml BID PO 01/12/18 09:00 Future hold 01/18/18 21:10 (Heparin Inj) 5,000 units Q8HR SQ 01/13/18 14:00 01/19/18 06:48 (Lasix Inj) 40 mg Q8H IV PUSH 01/14/18 12:00 01/19/18 04:20 Albumin Human 100 ml @ 60 mls/hr Q8H IV 01/14/18 12:00 01/19/18 04:20 (Heparin Central Flush) See Protocol DAILY IV FLUSH 01/15/18 09:00 01/19/18 09:19 (Heparin Central Flush) See Protocol UNSCH PRN IV FLUSH 01/14/18 21:15 (NS Flush) UNSCH PRN IV FLUSH 01/14/18 21:15 (Roxicodone Intensol Liq) 10 mg Q6H PRN PO 01/16/18 10:00 01/18/18 10:58 (Neurontin Liq) 300 mg TID NG 01/16/18 09:00 01/19/18 09:00 (Free Water) VOLUME: 200 ML Q6HR G-TUBE 01/17/18 07:30 01/19/18 06:48 Lines Line sites with no e.o infection Past Medical History Depression BPH Hypothyroidism Past Surgical History Prostate biopsy, Tonsillectomy, history of kidney surgery. Prostate surgery Allergies: Coded Allergies: No Known Allergies (Unverified , 01/02/18) Objective . Vital Signs Date Time Temp Pulse Resp B/P (MAP) Pulse Ox O2 Delivery O2 Flow Rate FiO2 01/19/18 10:00 106 01/19/18 09:12 97 T-piece 21 01/19/18 08:00 97.0 103 22 111/59 (76) 98 01/19/18 08:00 106 01/19/18 07:00 99 T-Piece 01/19/18 06:00 104 01/19/18 04:00 98.0 106 25 122/72 (89) 98 01/19/18 04:00 106 01/19/18 02:00 94 01/19/18 00:00 88 01/19/18 00:00 98.4 88 16 129/66 (87) 97 01/18/18 22:00 82 01/18/18 21:57 99 T-piece 28 01/18/18 20:00 98.1 86 22 100/53 (69) 99 01/18/18 20:00 86 01/18/18 19:00 99 T-Piece 28 01/18/18 18:00 89 01/18/18 17:37 20 01/18/18 16:00 107/57 (74) 01/18/18 16:00 89 01/18/18 14:01 94 01/18/18 12:00 89 01/18/18 12:00 98.9 99 18 123/52 (75) 99 . Laboratory Tests Test 01/18/18 05:45 01/19/18 04:20 White Blood Count 10.7 TH/MM3 9.6 TH/MM3 Red Blood Count 2.34 MIL/MM3 2.36 MIL/MM3 Hemoglobin 7.2 GM/DL 7.2 GM/DL Hematocrit 21.1 % 21.1 % Mean Corpuscular Volume 90.3 FL 89.5 FL Mean Corpuscular Hemoglobin 30.7 PG 30.7 PG Mean Corpuscular Hemoglobin Concent 34.0 % 34.4 % Red Cell Distribution Width 15.3 % 14.9 % Platelet Count 243 TH/MM3 235 TH/MM3 Mean Platelet Volume 7.9 FL 8.0 FL Laboratory Tests Test 01/17/18 16:51 01/18/18 05:45 01/18/18 23:50 01/19/18 04:20 Potassium Level 3.0 MEQ/L 3.0 MEQ/L 3.1 MEQ/L 3.7 MEQ/L Blood Urea Nitrogen 29 MG/DL 32 MG/DL Creatinine 0.79 MG/DL 0.78 MG/DL Random Glucose 144 MG/DL 133 MG/DL Calcium Level 8.4 MG/DL 8.7 MG/DL Sodium Level 149 MEQ/L 149 MEQ/L Chloride Level 115 MEQ/L 113 MEQ/L Carbon Dioxide Level 26.6 MEQ/L 30.7 MEQ/L Anion Gap 7 MEQ/L 5 MEQ/L Estimat Glomerular Filtration Rate 98 ML/MIN 99 ML/MIN Imaging Chest X-Ray 01/13/18 0000 Signed Impressions: Service Date/Time: January 17:47 - CONCLUSION: 1. Interval removal of endotracheal tube and placement of tracheostomy tube. 2. Hazy opacity is now noted projected over the left lung. This could represent post erlying fluid. Jorge Luis Puri MD Abdomen X-Ray 01/12/18 0600 Signed Impressions: Service Date/Time: Friday, January 12, 2018 04:57 - CONCLUSION: Mild gaseous distention possibly ileus. Hussein Fontaine MD Thoracic Spine X-Ray 01/08/18 Signed Impressions: Service Date/Time: Sunday, January 07, 2018 21:17 - CONCLUSION: Intraoperative spot images of the thoracic spine for localization purposes. Marcial Redmond MD Lumbar Spine X-Ray 01/08/18 Signed Impressions: Service Date/Time: Sunday, January 07, 2018 21:17 - CONCLUSION: Single intraoperative spot image for localization purposes. Marcial Redmond MD Thoracic Spine MRI 01/06/18 Signed Impressions: Service Date/Time: January 14:23 - CONCLUSION: 1. Multilevel cord compression is due predominantly to multiple disc protrusions. Significant cord compression is present at least 6 levels. There is also cord compression posteriorly at the T10 level due to a fluid collection in the midline which measures 6 mm in AP dimension. 2. There is also focal subcutaneous right parasagittal fluid collection at T10 and T11 which does not demonstrate peripheral contrast enhancement. An abscess is suspected. Jagjit Wilkinson MD Chest CT 01/06/18 Signed Impressions: Service Date/Time: January 18:51 - CONCLUSION: 1. No abscess identified outside of the thoracic spinal canal. Small bilateral pleural effusions. NG coiled in the stomach. Frederick Rizzo MD Cervical Spine MRI 01/06/18 Signed Impressions: Service Date/Time: January 14:23 - CONCLUSION: 1. Severe degenerative changes with severe spinal stenosis at C2-3, C3-4, C4-5 and C5-6. There is moderate spinal stenosis at C6-7 and C7-T1. Overall assessment of the cord is limited due to motion artifact. I do not definitively see edema within the cord however there is significant flattening of the cord at multiple levels. 2. No significant abnormal contrast enhancement identified. Leonardo Sorenson MD Brain MRI 01/06/18 Signed Impressions: Service Date/Time: January 14:23 - CONCLUSION: 1. Negative MRI of the brain with and without contrast. Jagjit Wilkinson MD Abdomen/Pelvis CT 01/06/18 Signed Impressions: Service Date/Time: January 18:51 - CONCLUSION: 1. Multiple laminectomy defects in the lumbar spine with some locules of air both within the canal and within the L2 vertebral body which could be related to infection. Cannot exclude abscess formation within the canal. 2. 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 3. Diffuse ileus. 4. Small effusions and mild anasarca. 5. Peck catheter in decompressed bladder. NG coiled in stomach. Frederick Rizzo MD Lumbar Spine MRI 01/05/18 0000 Signed Impressions: Service Date/Time: Friday, January 05, 2018 14:27 - CONCLUSION: 1. Extensive postsurgical changes with apparent left decompressive laminectomy leftward from L1 to through L4-5. 2. There is a well-circumscribed 1.4 cm cystic structure midline just posterior to the thecal sac at L4-5 which was not clearly present previously. May represent a small seroma which could result in some degree of central spinal stenosis despite the left laminectomy. 3. In addition, severe narrowing of the right L4-5 neural foramen with almost certain compromise of the right L4 nerve root. Emir Bowles MD Physical Exam GENERAL: awake, on T-pice, NAD. Up in stretcher chair SKIN: Warm and dry. Edematous HEAD: Normocephalic. EYES: Pupils equal round. No scleral icterus. No injection or drainage. ENT: Moist mucosa NECK: [place] J collar in place. Trach site ok CARDIOVASCULAR: Tachycardic. RESPIRATORY: Has scattered rhonchi GASTROINTESTINAL: Abdomen non-tender, soft, slightly distended. : Peck catheter draining gila colored urine. Significant scrotal edema. BACK: Surgical incisions healing well per nursing report. MUSCULOSKELETAL: Extremities without clubbing, cyanosis. Generalized edema +1 of extremities. NEUROLOGICAL: Opens eyes follows commands. Moves UE at wrist level. No movement in BLE. Assessment & Plan Remarks Severe Sepsis present on admission (leucocytosis, Tachycardia, source: bacteremia and epidural abscess. E.coli bacteremia high grade E.Coli UTI recent prostate biopsy. PNA aspiration/HCAP Epidural abscess, thoracic and lumbar, C/S E coli - S/P surgery and evacuation Recent history of prostate biopsy as risk factor for E.coli bacteremia. Incomplete Quadriparesis. Paraparesis present on admission. Recs: Continue Ceftazidime IV for E.coli Sepsis and Osteomyelitis of C,T,L spine plus epidural abscesses. Tolerating T-piece Monitor respiratory status Monitor progress Possible transfer to [place]. When transferred please continue Ceftazidime IV. Please have [place] consult me as patient needs follow up imaging etc to formulate a fci plan given extent of disease. dw patient and significant other. Examined wound with [facility] : appears clean and intact. Shanda Charles MD Jan 19, 2018 11:31
[2018-01-19] MEDS: oxyCODONE HCL ORAL CONC 5 MG/0.25 ML SYRINGE PO PRN (13:42)
[2018-01-19] MEDS: TAMSULOSIN HCL 0.4 MG CAP PO SCH (21:23)
[2018-01-20] VITALS (14 sets, daily range): BP systolic 92–125; BP diastolic 53–63; PULSE 84–104; RESP 18–22; TEMP 98–101.1; O2SAT 95–99
[2018-01-20] MEDS: FUROSEMIDE 40 MG/4 ML VIAL IV PUSH SCH ×3 (05:02→21:40)
[2018-01-20] MEDS: HEPARIN SODIUM - SQ 10,000 UNITS/ML VIAL SQ SCH ×3 (05:03→21:44)
[2018-01-20] MEDS: FREE WATER G-TUBE SCH ×3 (05:03→18:00)
[2018-01-20] MEDS: ARTIFICIAL TEARS OPTH SOLN 15 ML BTL EACH EYE SCH ×3 (05:03→21:43)
[2018-01-20] MEDS: ALBUMIN 25% INJ 100 ML IV SCH ×3 (05:03→21:41)
[2018-01-20] MEDS: POTASSIUM PHOSPHATE/SODIUM PHOSPHATE 250 MG TAB PO SCH ×3 (05:03→18:00)
[2018-01-20] MEDS: cefTAZidime INJ 2,000 MG in SODIUM CHLORIDE 0.9% INJ 100 ML IV SCH ×3 (05:03→21:44)
[2018-01-20] MEDS: MORPHINE SULFATE 2 MG/ML SYRINGE IV PUSH PRN ×3 (05:42→13:00)
[2018-01-20] MEDS: POLYETHYLENE GLYCOL 17 GM PKG PO SCH ×2 (09:00→21:00)
[2018-01-20] MEDS: BISACODYL 10 MG SUPP RECTAL SCH (09:00)
[2018-01-20] MEDS: LACTULOSE SYRUP 20 GM/30 ML CUP PO SCH ×2 (09:01→21:00)
[2018-01-20] MEDS: GABAPENTIN 250 MG/5 ML UDC NG SCH ×3 (09:02→18:00)
[2018-01-20] MEDS: METHOCARBAMOL 500 MG TAB PO SCH ×4 (09:02→21:42)
[2018-01-20] MEDS: ATORVASTATIN 40 MG TAB PO SCH (09:02)
[2018-01-20] MEDS: FAMOTIDINE 20 MG TAB PO SCH ×2 (09:02→21:00)
[2018-01-20] MEDS: DOCUSATE SODIUM 50 MG/SENNA 8.6 MG TAB PO SCH ×2 (09:02→21:00)
[2018-01-20] MEDS: SODIUM CHLORIDE 0.9% FLUSH 10 ML FLUSH IV FLUSH SCH ×2 (09:03→21:00)
--- NOTE | 2018-01-20 10:47 | HHI.NSPN ---
(Tigre Estrada) History Chief Complaint: Unable to move legs. (Tigre Estrada) Interval History 01/03: 67-year-old male who underwent a prostate biopsy one week ago, on . He states that on the evening of 12/29/17 on into the morning of 12/30/17, he developed fever and chills, low back pain, and lower extremity numbness and paresthesias and muscle spasm. He was seen by his primary care physician and was given medication including muscle relaxant. The symptoms persisted and he returned to his primary care physician on Wednesday , 01/01/18 and was given additional medications including Cipro. He awoke on 01/02/2018 with increased lower extremity weakness and numbness, and fell in the shower in the morning, after which he was unable to ambulate or lift his legs off the bed, and continued to experience pain in the lower back. He went to the emergency room at [facility], and was given additional medication injections. He states that he could not lift his legs off the bed or ambulate in the emergency room, and was taken out to his car and lifted into the car and sent home again. He fell in the driveway again trying to get back into the house. He apparently did not urinate for the entire day. He has no complaint of pain which is numbness paresthesias in the upper extremities. No numbness or paresthesias over the chest or abdomen or pelvic region. The patient was emergently taken to the operating room for a bilateral L1-2, L2- 3, L3 4, L4 5 decompressive semi-laminectomy, medial facetectomy for spinal canal decompression. Post-operatively the patient remained intubated and was admitted to [facility] for further care and monitoring. 01/04: When seen this afternoon the patient has been extubated. He is awake and alert and readily interacts. He does report pain to the neck and the lower back. He has no numbness, tingling or weakness to the upper extremities but does say he will have pain shooting down them if he moves wrong. He denies any pain to the lower extremities but does have numbness to both feet and about the only movement he is able to do is move his knees medially and laterally. Upon examination the patient's sensorimotor exam is improved from pre-operatively 01/05: The patient desaturated this morning and a Halicat was initiated. From the EMR Nursing reported that the patient was lethargic and difficult to arouse. His sat was in the 80s and he did have a fever of 102F. He was therefore transferred back to [facility]. A chest x-ray demonstrated a left lower lobe consolidation. His blood, urine and lumbar spine wound cultures have all come back positive for Escherichia coli. When seen this afternoon the patient was awake, alert and readily interacted. He was visiting with his significant other. His upper extremity examination was variable with some improvement and some decline. His sensation and motor strength to the lower extremities had declined. The surgical incision looked good upon examination and the GUIDO drain was removed. 01/06: This afternoon the patient is on a nonrebreather mask when seen, he is tachypneic and laboured. He says he has some low back pain, especially at night. He denies any neck pain or headache. He has worsening of his muscle strength to the upper extremities and it remains poor to the lower. 01/07: The patient was urgently intubated yesterday evening for worsening respiratory status and remains so this morning. He underwent emergent surgery for decompression of the cervical and thoracic spines. Post-operatively he returned to [facility]. He is sedated with propofol. He has vasopressin and norepinephrine infusing for blood pressure support. He is obtunded but sedated and there is no response to any stimulation. 01/08: Patient sedated with Diprivan and fentanyl drips. He was biting the tube and was also recently placed on Versed. He is not opening eyes or following commands. He remains sedated for vent synchrony. 01/09: Pt sedated with Diprivan and Fentanyl drips. He nods his head slightly to questions. Intubated a/c. RN reports all bandages are dry with only mild post op staining. 01/10: When seen the patient is lethargic. He is sedated with propofol and midazolam. He continues to be intubated and mechanically ventilated. His significant other stated that the patient was awake a few minutes ago. When he called the patient's name he opened both eyes. He did blink to command. There was no motor response to any stimulation. 01/11: This morning the patient is drowsy when seen. He continues to be sedated with propofol and midazolam. He is still intubated and mechanically ventilated. His eyes open to voice. He does not move the extremities to any stimulation even though his sedation is held. 01/12: The patient is drowsy. He is on ketamine for sedation and pain control. He remains intubated and mechanically ventilated. He opened his eyes to voice. He indicated he had no pain. He weakly gripped with the right hand to command and gave a thumbs up. His health careers instructor was strong when local noxious stimulation was applied. He had no response with the other extremities to local noxious stimulation. 01/14: When seen the patient is awake. He has been trached and mechanically ventilated. Nursing does say that a CPAP trial may be done today. He nods appropriately. He denies any pain to the neck or back. Upon examination he is able to give a weak hand grasp bilaterally and has muscle contractions to the upper extremities when asked to lift them off the bed. He has no response to noxious stimulation of the lower extremities. He has numbness to the left lower but says the right lower and both upper extremities feel normal. 01/15: doing well, family at beside, remains very weak in extremities 01/16: sitting up in stretcher chair, alert, nursing reports increased sensation in lower extremities, no significant change to motor function. 01/17: The patient is awake and alert in bed watching TV and visiting with his significant other. He is trached and on a T-piece. He does try to verbalise some and nods appropriately. He does have pain to the extremities as well as some decreased sensation. He is moving the upper extremities spontaneously and has trace contraction of the lower extremities. 01/18: This morning the patient is in the cardiac/stretcher chair watching TV with his significant other. He is awake and alert. He says he feels better today and his pain is better also. He is able to move the upper extremities spontaneously but has no movement to the lower extremities. 01/19: When seen the patient is awake and alert in bed visiting with his significant other. Infectious Disease is at the bedside. He indicates he is doing better today than yesterday and denies any pain to the neck, back or extremities. He is moving the upper extremities purposefully but is not able to move the left except for a trace muscle contraction to command. 01/20: The patient is awake watching TV and visiting with his significant other. He indicates he is doing "so-so" this morning. He is able to move both upper extremities to command and spontaneously. There is a slight muscle contraction to the left lower to command but nothing to the right. (Tigre Estrada) Exam Results 01/18/18 01/18/18 01/19/18 01/19/18 01/20/18 01/20/18 06:00 18:00 06:00 18:00 06:00 18:00 Intake Total 2665 ml 950 ml 1560 ml 949 ml 1106 ml Output Total 5425 ml 2050 ml 3700 ml 1750 ml 2350 ml Balance -2760 ml -1100 ml -2140 ml -801 ml -1244 ml Intake Oral 50 ml 100 ml IV Total 500 ml 100 ml 400 ml Tube Feeding 1255 ml 400 ml 660 ml 549 ml 706 ml Tube Irrigant 910 ml 400 ml 400 ml 400 ml 400 ml Output Urine Total 5125 ml 2000 ml 3650 ml 1650 ml 2000 ml Stool Total 300 ml 50 ml 50 ml 100 ml 350 ml Vital Signs Date Time Temp Pulse Resp B/P (MAP) Pulse Ox O2 Delivery O2 Flow Rate FiO2 01/20/18 09:07 20 01/20/18 06:00 90 01/20/18 04:00 98.7 84 22 108/56 (73) 95 01/20/18 04:00 84 01/20/18 02:00 92 01/20/18 00:00 86 01/20/18 00:00 98.7 86 19 125/58 (80) 95 01/19/18 22:00 87 01/19/18 20:00 99.1 105 24 110/56 (74) 97 01/19/18 20:00 105 01/19/18 19:00 99 T-piece 28 01/19/18 19:00 99 T-Piece 28 01/19/18 18:00 99 01/19/18 16:00 101 01/19/18 16:00 98.0 73 20 101/57 (72) 97 01/19/18 14:22 18 01/19/18 14:00 99 01/19/18 12:00 101 01/19/18 10:00 106 01/19/18 09:12 97 T-piece 21 01/19/18 08:00 97.0 103 22 111/59 (76) 98 01/19/18 08:00 106 01/19/18 07:00 99 T-Piece 28 01/19/18 06:00 104 01/19/18 04:00 98.0 106 25 122/72 (89) 98 01/19/18 04:00 106 01/19/18 02:00 94 01/19/18 00:00 88 01/19/18 00:00 98.4 88 16 129/66 (87) 97 01/18/18 22:00 82 01/18/18 21:57 99 T-piece 28 01/18/18 20:00 98.1 86 22 100/53 (69) 99 01/18/18 20:00 86 01/18/18 19:00 99 T-Piece 28 01/18/18 18:00 89 01/18/18 16:00 107/57 (74) 01/18/18 16:00 89 01/18/18 14:01 94 01/18/18 12:00 89 01/18/18 12:00 98.9 99 18 123/52 (75) 99 01/18/18 10:00 90 01/18/18 08:00 98.6 90 22 152/69 (96) 98 01/18/18 08:00 86 01/18/18 07:34 99 T-piece 35 01/18/18 07:00 99 T-Piece 28 01/18/18 06:00 78 01/18/18 04:00 86 01/18/18 04:00 99.0 86 21 138/83 (101) 100 01/18/18 02:00 98 01/18/18 00:00 99.3 96 20 109/59 (76) 98 01/18/18 00:00 96 01/17/18 22:00 98 01/17/18 21:47 99 T-piece 5.00 35 01/17/18 20:00 106 01/17/18 20:00 99.7 106 26 150/82 (104) 98 01/17/18 19:00 100 T-Piece 35 01/17/18 18:00 84 01/17/18 16:00 98.0 90 24 112/64 (80) 98 01/17/18 14:00 84 01/17/18 12:00 98.2 98 25 123/72 (89) 96 (Tigre Estrada) Physical Examination GENERAL: Awake & alert in bed watching TV & visiting w/his significant other. Trached & on T-piece. His skin is cool & dry. HEENT: Normocephalic, atraumatic. NGT. NECK: [place] J cervical collar in place. No JVD. Trached & trachea appears midline. MUSCULOSKELETAL: Moving BUE spontaneously & to command, trace muscle contraction w/LLE to command. No evident clubbing or deformity. NEUROLOGICAL: Awake & alert. Spontaneous eye opening. Nonverbal, trached, mouths some words. Nodded head appropriately to questions. Patient w/decreased sensation below the knees but o/w sensation intact to light touch to the extremities. Does feel touch & nailbed pressure to right foot but not left which is reversed from yesterday. Moving BUE spontaneously & purposefully as well as to command R>L. Trace muscle contraction to LLE to command but no response to noxious stimulation. (Tigre Estrada) Lab, Micro, Other Results Laboratory Tests Test 01/17/18 16:51 01/18/18 05:45 01/18/18 23:50 01/19/18 04:20 Potassium Level 3.0 MEQ/L 3.0 MEQ/L 3.1 MEQ/L 3.7 MEQ/L White Blood Count 10.7 TH/MM3 9.6 TH/MM3 Red Blood Count 2.34 MIL/MM3 2.36 MIL/MM3 Hemoglobin 7.2 GM/DL 7.2 GM/DL Hematocrit 21.1 % 21.1 % Mean Corpuscular Volume 90.3 FL 89.5 FL Mean Corpuscular Hemoglobin 30.7 PG 30.7 PG Mean Corpuscular Hemoglobin Concent 34.0 % 34.4 % Red Cell Distribution Width 15.3 % 14.9 % Platelet Count 243 TH/MM3 235 TH/MM3 Mean Platelet Volume 7.9 FL 8.0 FL Blood Urea Nitrogen 29 MG/DL 32 MG/DL Creatinine 0.79 MG/DL 0.78 MG/DL Random Glucose 144 MG/DL 133 MG/DL Calcium Level 8.4 MG/DL 8.7 MG/DL Sodium Level 149 MEQ/L 149 MEQ/L Chloride Level 115 MEQ/L 113 MEQ/L Carbon Dioxide Level 26.6 MEQ/L 30.7 MEQ/L Anion Gap 7 MEQ/L 5 MEQ/L Estimat Glomerular Filtration Rate 98 ML/MIN 99 ML/MIN Test 01/19/18 13:08 Prealbumin 17 MG/DL (Tigre Estrada) Medical Decision Making Impression and Plan Impression: 1. Severe progressive paraplegia. Although he has significant spinal stenosis in the cervical thoracic and lumbar region, his overall presentation and exam suggests that the lumbar stenosis is the immediate cause of his severe lower extremity deficit, positive cauda equina syndrome. 2. Possible sepsis 3. Acute kidney disease 4. 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 Severe lumbar canal stenosis 2. Cauda equina syndrome 3. Cervical degenerative disease with severe stenosis and myelopathy 4. Thoracic disc disease with severe canal stenosis and myelopathy 5. Sepsis 6. Thrombocytopenia 7. Acute kidney disease Postoperative Diagnosis : (1) Cervical disc disease with myelopathy (2) Thoracic disc disease with myelopathy Postoperative Diagnosis : (1) Spinal epidural abscess (2) Thoracic disc disease with myelopathy (3) Lumbar canal stenosis 4. Postoperative lumbar epidural hematoma Respiratory insufficiency, CXR w/left lung hazy opacity suggestive of fluid. Ileus suggested by abdominal x-ray . Patient is doing okay today. He is awake & alert. Trached & on T-piece. Stable motor exam BUE, trace LLE muscle contraction to command but no movement w/ stimulation. Distal lower extremity sensation decreased/absent. Intermittent tachycardia. GUIDO #1 (lower back) & #2 (cervical) d/c'd . GUIDO drains #3 (lumbar) & # 4 (lumbar) d/c'd . Wound culture () positive for Escherichia coli, final . POD #17 () s/p: 1. Bilateral L1-2, L2-3, L3 4, L4 5 decompressive semi-laminectomy, medial facetectomy for spinal canal decompression. POD #13 (-) s/p: Procedure number 1. C2-C6 decompressive laminectomy Procedure number 2,Via separate incision: T2-T6 decompressive laminectomy POD #12 (-) s/p: Part 2 of planned two-part procedure. Procedure #1: 1. [id number] decompressive semi-laminectomy, evacuation thoracic epidural abscess 2. Evacuation thoracic epidural abscess. Procedure #2: Via separate incision. 1. Revision L2-3, L3 4, L4 5 decompressive semi-laminectomy 2. Evacuation lumbar epidural abscess 3. Evacuation of postoperative lumbar epidural hematoma Plan: Discussed plan of care w/patient & significant other. Primary & critical care management per Stock Room Manager. Neuro checks. Turn patient q2h but keep the patient off of his back. Physical & Occupational Therapy eval & tx. Mechanical DVT prophylaxis. Okay for pharmacologic DVT prophylaxis. Patient is able to be transferred to [facility] for further therapy once arrangements are made. (Tigre Estrada) Attending Statement The exam, history, and the medical decision-making described in the above note were completed with the assistance of the mid-level provider. I reviewed and agree with the findings presented. I attest that I had a [id number] encounter with the patient on the same day, and personally performed and documented my assessment and findings in the medical record. On my exam 01/20/2018, patient sitting up in chair Awake and alert Mostly 3-4/5 proximal and 2-3/5 distal upper extremity motor strength. Has moderate sensation to light touch distal right lower extremity, trace movement proximal left lower extremity. Continuing therapy Continue mobilize out of bed PEG tube. (Jerry Chakraborty MD) Tigre Estrada Jan 20, 2018 10:47 Jerry Chakraborty MD Jan 22, 2018 19:49
--- NOTE | 2018-01-20 11:18 | HHI.IDPN ---
Subjective Subjective Remarks Mr. Reeves is a 67 y/o CM with history of BPH who underwent a prostate biopsy one week ago, on 12/27/17. On the evening of 12/29/17 he developed fever and chills, low back pain, and lower extremity numbness and paresthesias and muscle spasm. He was seen by his primary care physician and was given medication including muscle relaxant. The symptoms persisted and he returned to his primary care physician on 01/01/18 and was given additional medications including Cipro and medrol dose pack. On 01/02/2018 patient woke up with increased lower extremity weakness and numbness, and fell in the shower in the morning, after which he was unable to ambulate or lift his legs off the bed , and continued to experience pain in the lower back. He went to the emergency room at [facility], and was given additional medication injections. He could not lift his legs off the bed or ambulate in the emergency room, and was taken out to his car and lifted into the car and sent home again. He fell in the driveway again trying to get back into the house. He apparently did not urinate for the entire day. He has no complaint of pain which is numbness paresthesias in the upper extremities. Reportedly on admission there was no numbness or paresthesias over the chest or abdomen or pelvic region. The MRI of thoracic spine shows severe canal stenosis at T2-3 and T5-6 level with cord compressions, complete or near complete canal obliteration at L2-3 L3- 4 and severe multilevel canal stenosis of the C-spine. Entire spine including C spine shows areas of stenosis. Upon my discussion with patient had to be emergently taken to the OR for decompression. Intraop cultures were taken and no hardware placed at present time but it appears that patient will need more surgeries. The MRIs done were non contrast due to Acute renal failure on admission and cannot be repeated. Per dw plan is to treat as epidural abscess stone since patient was treated for few days with antibiotics prior to arrival and also due to patient needing hardware placement which can be seeded. Previously, Intubated, being weaned off sedation, UO is good peck in place. Not on any pressors. There is a plan wean and extubate. ID consulted for evaluation and Management of GN madonna bacteremia (E.coli CTX M negative) and possible epidural abscess. Patient underwent procedure C2-C6 decompressive laminectomy, procedure to T2-T6 decompressive laminectomy as well as lumbar. (Separate incisions) by Dr. Chakraborty Overnight events reviewed with RN. On T-piece S/P trach 01/13 Ring[place] J collar in place. BP ok Not on pressors. Has some movement of UE, none in LE. LUE better than RUE raises slightly at elbow level. Has pain sensation in Left great toe but none on Right side. Skin sensation intact at buttock and inner groin level. WBC normal Antibiotics Current Medications Medications (Trade) Dose Ordered Sig/Kaveh Route Start Time Stop Time Status Last Admin (Robaxin) 500 mg QID PO 01/03/18 09:00 01/20/18 09:02 (Flomax) 0.4 mg HS PO 01/03/18 21:00 01/19/18 21:23 (Lipitor) 40 mg DAILY PO 01/03/18 09:00 01/20/18 09:02 (NS Flush) 2 ml UNSCH PRN IV FLUSH 01/03/18 05:00 (NS Flush) 2 ml BID IV FLUSH 01/03/18 09:00 01/20/18 09:03 (Tylenol) 650 mg Q6H PRN PO 01/03/18 05:00 01/12/18 16:29 (Zofran Inj) 4 mg Q6H PRN IV PUSH 01/03/18 05:00 01/05/18 15:50 (Roxana-Colace) 1 tab BID PO 01/03/18 09:00 01/20/18 09:02 (Tears Naturale Opth Soln) 1 drop Q8HR EACH EYE 01/03/18 14:00 01/20/18 05:03 (Albuterol Neb) 2.5 mg Q2HR NEB PRN NEB 01/03/18 10:00 01/09/18 11:30 (Pepcid) 20 mg BID PO 01/04/18 21:00 01/20/18 09:02 (K-Phos Neutral) 250 mg Q6HR PO 01/05/18 18:00 01/20/18 05:03 (Morphine Inj) 2 mg Q4H PRN IV PUSH 01/05/18 15:45 01/20/18 09:02 Ceftazidime 2000 mg/Sodium Chloride 100 ml @ 200 mls/hr Q8H IV 01/06/18 14:00 01/20/18 05:03 (Dulcolax Supp) 10 mg DAILY RECTAL 01/09/18 16:15 01/11/18 08:07 Potassium Chloride 100 ml @ 50 mls/hr Q2H PRN IV 01/12/18 08:30 01/19/18 02:20 Potassium Chloride 100 ml @ 50 mls/hr Q2H PRN IV 01/12/18 08:30 (K-Lyte Cl Eff) 50 meq UNSCH PRN PO 01/12/18 08:30 01/15/18 17:45 Potassium Chloride 100 ml @ 25 mls/hr UNSCH PRN IV 01/12/18 08:30 01/17/18 01:03 Potassium Chloride 100 ml @ 50 mls/hr Q2H PRN IV 01/12/18 08:30 Magnesium Sulfate 4 gm/Sodium Chloride 100 ml @ 50 mls/hr UNSCH PRN IV 01/12/18 08:30 01/16/18 09:40 (Mag-Ox) 800 mg UNSCH PRN PO 01/12/18 08:30 Magnesium Sulfate 2 gm/Sodium Chloride 100 ml @ 50 mls/hr UNSCH PRN IV 01/12/18 08:30 (K-Phos) 2,000 mg Q4H PRN PO 01/12/18 08:30 Sodium Phosphate 30 mmol/Sodium Chloride 250 ml @ 42 mls/hr UNSCH PRN IV 01/12/18 08:30 (K-Phos) 2,000 mg UNSCH PRN PO/TUBE 01/12/18 08:30 Potassium Phosphate 30 mmol/ Sodium Chloride 260 ml @ 42 mls/hr UNSCH PRN IV 01/12/18 08:30 (Miralax) 17 gm BID PO 01/12/18 09:00 Future hold 01/18/18 21:10 (Lactulose Liq) 30 ml BID PO 01/12/18 09:00 Future hold 01/20/18 09:01 (Heparin Inj) 5,000 units Q8HR SQ 01/13/18 14:00 01/20/18 05:03 (Lasix Inj) 40 mg Q8H IV PUSH 01/14/18 12:00 01/20/18 05:02 Albumin Human 100 ml @ 60 mls/hr Q8H IV 01/14/18 12:00 01/20/18 05:03 (Heparin Central Flush) See Protocol DAILY IV FLUSH 01/15/18 09:00 01/20/18 09:02 (Heparin Central Flush) See Protocol UNSCH PRN IV FLUSH 01/14/18 21:15 (NS Flush) UNSCH PRN IV FLUSH 01/14/18 21:15 (Roxicodone Intensol Liq) 10 mg Q6H PRN PO 01/16/18 10:00 01/19/18 13:42 (Neurontin Liq) 300 mg TID NG 01/16/18 09:00 01/20/18 09:02 (Free Water) VOLUME: 200 ML Q6HR G-TUBE 01/17/18 07:30 01/20/18 05:03 Lines Line sites with no e.o infection Past Medical History Depression BPH Hypothyroidism Past Surgical History Prostate biopsy, Tonsillectomy, history of kidney surgery. Prostate surgery Allergies: Coded Allergies: No Known Allergies (Unverified , 01/02/18) Objective . Vital Signs Date Time Temp Pulse Resp B/P (MAP) Pulse Ox O2 Delivery O2 Flow Rate FiO2 01/20/18 09:07 20 01/20/18 06:00 90 01/20/18 04:00 98.7 84 22 108/56 (73) 95 01/20/18 04:00 84 01/20/18 02:00 92 01/20/18 00:00 86 01/20/18 00:00 98.7 86 19 125/58 (80) 95 01/19/18 22:00 87 01/19/18 20:00 99.1 105 24 110/56 (74) 97 01/19/18 20:00 105 01/19/18 19:00 99 T-piece 28 01/19/18 19:00 99 T-Piece 28 01/19/18 18:00 99 01/19/18 16:00 101 01/19/18 16:00 98.0 73 20 101/57 (72) 97 01/19/18 14:22 18 01/19/18 14:00 99 01/19/18 12:00 101 . Laboratory Tests Test 01/19/18 04:20 White Blood Count 9.6 TH/MM3 Red Blood Count 2.36 MIL/MM3 Hemoglobin 7.2 GM/DL Hematocrit 21.1 % Mean Corpuscular Volume 89.5 FL Mean Corpuscular Hemoglobin 30.7 PG Mean Corpuscular Hemoglobin Concent 34.4 % Red Cell Distribution Width 14.9 % Platelet Count 235 TH/MM3 Mean Platelet Volume 8.0 FL Laboratory Tests Test 01/18/18 23:50 01/19/18 04:20 01/19/18 13:08 Potassium Level 3.1 MEQ/L 3.7 MEQ/L Blood Urea Nitrogen 32 MG/DL Creatinine 0.78 MG/DL Random Glucose 133 MG/DL Calcium Level 8.7 MG/DL Sodium Level 149 MEQ/L Chloride Level 113 MEQ/L Carbon Dioxide Level 30.7 MEQ/L Anion Gap 5 MEQ/L Estimat Glomerular Filtration Rate 99 ML/MIN Prealbumin 17 MG/DL Imaging Chest X-Ray 01/13/18 0000 Signed Impressions: Service Date/Time: January 17:47 - CONCLUSION: 1. Interval removal of endotracheal tube and placement of tracheostomy tube. 2. Hazy opacity is now noted projected over the left lung. This could represent post erlying fluid. Jorge Luis Puri MD Abdomen X-Ray 01/12/18 0600 Signed Impressions: Service Date/Time: Friday, January 12, 2018 04:57 - CONCLUSION: Mild gaseous distention possibly ileus. Hussein Fontaine MD Thoracic Spine X-Ray 01/08/18 0000 Signed Impressions: Service Date/Time: Sunday, January 07, 2018 21:17 - CONCLUSION: Intraoperative spot images of the thoracic spine for localization purposes. Marcial Redmond MD Lumbar Spine X-Ray 01/08/18 0000 Signed Impressions: Service Date/Time: Sunday, January 07, 2018 21:17 - CONCLUSION: Single intraoperative spot image for localization purposes. Mracial Redmond MD Thoracic Spine MRI 01/06/18 0000 Signed Impressions: Service Date/Time: January 14:23 - CONCLUSION: 1. Multilevel cord compression is due predominantly to multiple disc protrusions. Significant cord compression is present at least 6 levels. There is also cord compression posteriorly at the T10 level due to a fluid collection in the midline which measures 6 mm in AP dimension. 2. There is also focal subcutaneous right parasagittal fluid collection at T10 and T11 which does not demonstrate peripheral contrast enhancement. An abscess is suspected. Jagjit Wilkinson MD Chest CT 01/06/18 Signed Impressions: Service Date/Time: January 18:51 - CONCLUSION: 1. No abscess identified outside of the thoracic spinal canal. Small bilateral pleural effusions. NG coiled in the stomach. Frederick Rizzo MD Cervical Spine MRI 01/06/18 Signed Impressions: Service Date/Time: January 14:23 - CONCLUSION: 1. Severe degenerative changes with severe spinal stenosis at C2-3, C3-4, C4-5 and C5-6. There is moderate spinal stenosis at C6-7 and C7-T1. Overall assessment of the cord is limited due to motion artifact. I do not definitively see edema within the cord however there is significant flattening of the cord at multiple levels. 2. No significant abnormal contrast enhancement identified. Leonardo Sorenson MD Brain MRI 01/06/18 Signed Impressions: Service Date/Time: January 14:23 - CONCLUSION: 1. Negative MRI of the brain with and without contrast. Jagjit Wilkinson MD Abdomen/Pelvis CT 01/06/18 Signed Impressions: Service Date/Time: January 18:51 - CONCLUSION: 1. Multiple laminectomy defects in the lumbar spine with some locules of air both within the canal and within the L2 vertebral body which could be related to infection. Cannot exclude abscess formation within the canal. 2. 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 3. Diffuse ileus. 4. Small effusions and mild anasarca. 5. Peck catheter in decompressed bladder. NG coiled in stomach. Frederick Rizzo MD Lumbar Spine MRI 01/05/18 Signed Impressions: Service Date/Time: Friday, January 05, 2018 14:27 - CONCLUSION: 1. Extensive postsurgical changes with apparent left decompressive laminectomy leftward from L1 to through L4-5. 2. There is a well-circumscribed 1.4 cm cystic structure midline just posterior to the thecal sac at L4-5 which was not clearly present previously. May represent a small seroma which could result in some degree of central spinal stenosis despite the left laminectomy. 3. In addition, severe narrowing of the right L4-5 neural foramen with almost certain compromise of the right L4 nerve root. Emir Bowles MD Physical Exam GENERAL: awake, on T-pice, NAD. Up in stretcher chair SKIN: Warm and dry. Edematous HEAD: Normocephalic. EYES: Pupils equal round. No scleral icterus. No injection or drainage. ENT: Moist mucosa NECK: Ringgold J collar in place. Trach site ok CARDIOVASCULAR: Tachycardic. RESPIRATORY: Has scattered rhonchi GASTROINTESTINAL: Abdomen non-tender, soft, slightly distended. : Peck catheter draining gila colored urine. Significant scrotal edema. BACK: Surgical incisions healing well per nursing report. MUSCULOSKELETAL: Extremities without clubbing, cyanosis. Generalized edema +1 of extremities. NEUROLOGICAL: Opens eyes follows commands. Moves UE at wrist level. No movement in BLE. Assessment & Plan Remarks Severe Sepsis present on admission (leucocytosis, Tachycardia, source: bacteremia and epidural abscess. E.coli bacteremia high grade E.Coli UTI recent prostate biopsy. PNA aspiration/HCAP Epidural abscess, thoracic and lumbar, C/S E coli - S/P surgery and evacuation Recent history of prostate biopsy as risk factor for E.coli bacteremia. Incomplete Quadriparesis. Paraparesis present on admission. Recs: Continue Ceftazidime IV for E.coli Sepsis and Osteomyelitis of C,T,L spine plus epidural abscesses. Plan on 10 weeks from last surgery (count down from 2017) Possible transfer to [facility] or [place]. When transferred please continue Ceftazidime IV as above. Weekly CBC with diff, CMP, CRP while on IV antibiotics. Repeat imaging needed in 4-6 weeks depending on clinical progress or sooner if any change in clinical condition. PICC placed, CL DCed. dw patient and significant other. Shanda Charles MD Jan 20, 2018 11:18
[2018-01-20] MEDS: oxyCODONE HCL ORAL CONC 5 MG/0.25 ML SYRINGE PO PRN (14:00)
[2018-01-20] MEDS: TAMSULOSIN HCL 0.4 MG CAP PO SCH (21:00)
--- NOTE | 2018-01-20 22:49 | HHI.PR ---
Subjective Remarks Follow up for C, T, L spine osteomyelitis, bacteremia, respiratory failure. Patient is sitting in his chair and working with PT. He is not able to move his lower extremities at all. Afebrile. NG tube in place. Objective Vitals Vital Signs Date Time Temp Pulse Resp B/P (MAP) Pulse Ox O2 Delivery O2 Flow Rate FiO2 01/20/18 18:00 90 01/20/18 16:06 96 T-piece 21 01/20/18 16:00 84 01/20/18 16:00 98.0 86 22 105/60 (75) 95 01/20/18 14:00 90 01/20/18 12:00 84 01/20/18 12:00 98.7 104 20 103/56 (72) 95 01/20/18 10:00 90 01/20/18 09:07 20 01/20/18 08:00 98.7 96 18 104/63 (77) 95 01/20/18 08:00 84 01/20/18 07:00 99 T-Piece 28 01/20/18 06:00 90 01/20/18 04:00 98.7 84 22 108/56 (73) 95 01/20/18 04:00 84 01/20/18 02:00 92 01/20/18 00:00 86 01/20/18 00:00 98.7 86 19 125/58 (80) 95 I/O 01/19/18 01/19/18 01/19/18 01/20/18 01/20/18 01/20/18 07:00 15:00 23:00 07:00 15:00 23:00 Intake Total 1360 ml 949 ml 1106 ml 986 ml Output Total 3700 ml 1750 ml 2350 ml 1850 ml Balance -2340 ml -801 ml -1244 ml -864 ml Intake Oral 100 ml 0 ml IV Total 200 ml Tube Feeding 660 ml 549 ml 706 ml 586 ml Tube Irrigant 400 ml 400 ml 400 ml 400 ml Output Urine Total 3650 ml 1650 ml 2000 ml 1750 ml Stool Total 50 ml 100 ml 350 ml 100 ml Result Diagram: 01/19/1841901/19/18 042 Objective Remarks GENERAL: Alert, follows commands, Pleasant. SKIN: Warm. HEAD: Normocephalic. EYES: No scleral icterus. No injection or drainage. NECK: Supple, trachea midline. trach in place, no evidence of bleeding. c- collar in place. CARDIOVASCULAR: normal rate, regular rhythm. sinus. No JVD. RESPIRATORY: Equal chest rise. t-piece. no accessory muscle use. GASTROINTESTINAL: Abdomen soft, mildly distended. nontender. no guarding. MUSCULOSKELETAL: well perfused limbs. NEURO EXAM: No movement of lower extremities. Procedures 01/03/2018 1. Bilateral L1-2, L2-3, L3 4, L4 5 decompressive semi-laminectomy, medial facetectomy for spinal canal decompression. 01/06/2018, 01/07/2018 Procedure number 1. C2-C6 decompressive laminectomy Procedure number 2,Via separate incision: T2-T6 decompressive laminectomy A/P Problem List: (1) Spinal cord compression ICD Code: G95.20 - Unspecified cord compression (2) Lumbar canal stenosis ICD Code: M48.061 - Spinal stenosis, lumbar region without neurogenic claudication (3) Sepsis ICD Code: A41.9 - Sepsis, unspecified organism (4) UTI (urinary tract infection) ICD Code: N39.0 - Urinary tract infection, site not specified (5) Acute hypoxemic respiratory failure ICD Code: J96.01 - Acute respiratory failure with hypoxia (6) Thrombocytopenia ICD Code: D69.6 - Thrombocytopenia, unspecified (7) VALENCIA (acute kidney injury) ICD Code: N17.9 - Acute kidney failure, unspecified (8) Bacteremia ICD Code: R78.81 - Bacteremia (9) Osteoporosis ICD Code: M81.0 - Age-related osteoporosis without current pathological fracture (10) Altered mental status ICD Code: R41.82 - Altered mental status, unspecified (11) Acute ascending myelitis ICD Code: G04.91 - Myelitis, unspecified (12) Ileus ICD Code: K56.7 - Ileus, unspecified Status: Acute Assessment and Plan Mr. Reeves is a 67 year old male who presented to the emergency department on 01/02/2018 lower extremity numbness and weakness that began on 12/31/2017. Patient underwent prostate biopsy by urology 6 days prior to this admission. Patient tolerated the procedure and was able to go back to work. However within 24-48 hours he started experiencing fever and chills with T-max 10 1F. He went to his primary care physician who treated him with muscle relaxer and discharged home with Flexeril. He went back to his primary care physician and he was sent home on ciprofloxacin. On the day of admission patient fell in the shower due to weakness in his legs and went to [facility]. He received lidocaine patch to his left side of his low back and intramuscular injection of Decadron, Toradol and morphine and also Ativan orally for anxiety. He went home and fell again and was unable to walk. He apparently did not urinate the entire day upon admission MRI of the thoracic spine shows severe canal stenosis at T2-T3 and T5-T6 level with cord compressions complete or near complete canal obliteration at L2-3 and L3-4 and severe multilevel stenosis of the C-spine. Patient was emergently taken to the OR by neurosurgery Dr. Chakraborty. Was managed in the ICU and extubated on 01/03/2018. He was subsequently transferred to the medical floor. Critical care was again consulted on 01/07/2018 due to respiratory failure. Patient required pressors for septic shock. He underwent tracheostomy on 01/13/2018. He was subsequently transferred to hospitalist service on 2017. Neuro/Psych: Postop day #14 Bilateral L1-2, L2-3, L3 4, L4 5 decompressive semi-laminectomy, medial facetectomy for spinal canal decompression. Depression/anxiety Ascending myelopathy Spinal abscess C-spine revealed cord compression C2 through C4 and C4 through C6. T-spine 2-3/ 5 6 and lumbar spine T throughout L2 with essentially ablation of the cord from L2 through L5. Status post emergent surgery per Dr. Chakraborty 01/03 Acetaminophen 650 mg p.o. every 6 hours as needed pain 1-5/fever oxycodone and Morphine IV PRN for pain Neurochecks CV: Dyslipidemia Severe sepsis- resolved. septic shock- resolved. off vasopressors good diuresis. continue lasix 40mg iv q8h with albumin Currently on atorvastatin 40 mg p.o. daily. Hospital substitution for rosuvastatin 20 mg p.o. daily s/p hydrocortisone stress dose steroids (therapy completed 01/15) Resp: Acute hypoxic hypercarbic respiratory failure- resolving Nebs Wean FiO2 for goal SPO2 greater than 90% OOB to stretcher chair daily PT/OT/Speech therapy GI: Neurogenic ileus- resolving. Acute protein calorie malnutrition- moderate tube feeds. senna/colace, lactulose, miralax, dulcolax supp daily. prn mag citrate if no BM daily. Likely ileus is multifactorial including severe sepsis and postoperative pain, likely compounded by myelopathy and neurogenic component to his ileus Famotidine for GI prophylaxis trend prealbumin weekly : BPH Maintain Peck catheter per urology. have discussed with urology: cannot I/O straight cath for now. recommended changing peck catheter Monthly. Currently on tamsulosin 0.4 mg p.o. daily Recent prostate biopsy. Endo: Sliding scale insulin Accu-Cheks to maintain euglycemia/low regimen Renal: Acute kidney injury- resolved Avoid nephrotoxic drugs Monitor urine output Accurate I's and O's Heme: Thrombocytopenia likely secondary to sepsis- resolved. Anemia secondary to acute blood loss Haptoglobin high. LDH normal. Peripheral smear no signs of schistocytes total bilirubin normal. Status post 2 pack platelets 01/04. Followed by hematology no indication for transfusion ID: Severe Sepsis present on admission (leucocytosis, Tachycardia, source: bacteremia and epidural abscess. E.coli bacteremia high grade E.Coli UTI recent prostate biopsy. PNA aspiration/HCAP Epidural abscess, thoracic and lumbar, C/S E coli C, T, L spine osteomyelitis ID following. Ceftazidime IV for 10 weeks from 01/08/2018. Weekly CBC with diff, CMP, CRP while on IV antibiotics. Repeat imaging may be needed in 4-6 weeks to assess progress. FEN Hypokalemia- resolved Hypernatremia Hypokalemia resolved. Na is 149. Probably 1-2 L of free water deficit. Discussed with patient's life partner (as stated in the EMR) regarding PEG tube placement as it might be safer than tube feed by NG tube. Life partner agrees with PEG tube placement. I will discuss with patient and if he is also in agreement, we will try to get PEG Tube placement on 01/21/2018. Access - 01/15 PICC line Peck: keep per urology. change monthly. Full code. Famotidine, SubQ Heparin. Problem Qualifiers (1) Lumbar canal stenosis: Qualified Codes: M48.061 - Spinal stenosis, lumbar region without neurogenic claudication (2) UTI (urinary tract infection): Qualified Codes: N30.00 - Acute cystitis without hematuria (3) Osteoporosis: Qualified Codes: M81.0 - Age-related osteoporosis without current pathological fracture (4) Altered mental status: Qualified Codes: R40.4 - Transient alteration of awareness Dwayne Russell DO Jan 20, 2018 22:49
[2018-01-21] VITALS (15 sets, daily range): BP systolic 92–117; BP diastolic 55–71; PULSE 90–98; RESP 10–22; TEMP 98.6–100; O2SAT 14–98
[2018-01-21] MEDS: POTASSIUM PHOSPHATE/SODIUM PHOSPHATE 250 MG TAB PO SCH ×4 (02:07→18:40)
[2018-01-21] MEDS: ALBUMIN 25% INJ 100 ML IV SCH ×3 (04:38→21:00)
[2018-01-21] MEDS: FUROSEMIDE 40 MG/4 ML VIAL IV PUSH SCH ×3 (04:39→21:00)
[2018-01-21] MEDS: ARTIFICIAL TEARS OPTH SOLN 15 ML BTL EACH EYE SCH ×3 (05:05→21:02)
[2018-01-21] MEDS: FREE WATER G-TUBE SCH ×4 (05:05→18:40)
[2018-01-21] MEDS: cefTAZidime INJ 2,000 MG in SODIUM CHLORIDE 0.9% INJ 100 ML IV SCH ×2 (05:08→13:56)
[2018-01-21] MEDS: HEPARIN SODIUM - SQ 10,000 UNITS/ML VIAL SQ SCH ×3 (05:08→21:01)
[2018-01-21] MEDS: MORPHINE SULFATE 2 MG/ML SYRINGE IV PUSH PRN ×4 (05:09→21:03)
[2018-01-21] MEDS: oxyCODONE HCL ORAL CONC 5 MG/0.25 ML SYRINGE PO PRN (06:34)
[2018-01-21] MEDS: POLYETHYLENE GLYCOL 17 GM PKG PO SCH ×2 (09:00→21:00)
[2018-01-21] MEDS: DOCUSATE SODIUM 50 MG/SENNA 8.6 MG TAB PO SCH ×2 (09:00→21:00)
[2018-01-21] MEDS: LACTULOSE SYRUP 20 GM/30 ML CUP PO SCH ×2 (09:00→21:00)
[2018-01-21] MEDS: BISACODYL 10 MG SUPP RECTAL SCH (09:00)
[2018-01-21] MEDS: GABAPENTIN 250 MG/5 ML UDC NG SCH ×3 (09:16→18:40)
[2018-01-21] MEDS: METHOCARBAMOL 500 MG TAB PO SCH ×4 (09:16→21:01)
[2018-01-21] MEDS: FAMOTIDINE 20 MG TAB PO SCH ×2 (09:16→21:00)
[2018-01-21] MEDS: ATORVASTATIN 40 MG TAB PO SCH (09:16)
[2018-01-21] MEDS: SODIUM CHLORIDE 0.9% FLUSH 10 ML FLUSH IV FLUSH SCH ×2 (09:17→21:00)
--- NOTE | 2018-01-21 10:16 | HHI.PR ---
Subjective Remarks Follow up for C, T, L epidural abscess, bacteremia, respiratory failure. Patient is currently doing well. He is able to move his upper extremities well. Not able to move his lower extremities except slight muscle movement of left lower ext. No fever, chills. NG tube in place as well as neck collar. Objective Vitals Vital Signs Date Time Temp Pulse Resp B/P (MAP) Pulse Ox O2 Delivery O2 Flow Rate FiO2 01/21/18 07:57 97 T-piece 21 01/21/18 06:00 92 01/21/18 05:00 99.0 94 17 92/55 (67) 94 01/21/18 04:00 94 01/21/18 02:00 93 01/21/18 00:00 99.1 90 22 101/56 (71) 14 01/21/18 00:00 90 01/20/18 22:00 90 01/20/18 20:41 99 T-piece 21 01/20/18 20:00 101 01/20/18 20:00 101.1 100 18 92/53 (66) 96 01/20/18 19:00 95 T-Piece 28 01/20/18 18:00 90 01/20/18 16:06 96 T-piece 21 01/20/18 16:00 84 01/20/18 16:00 98.0 86 22 105/60 (75) 95 01/20/18 14:00 90 01/20/18 12:00 84 01/20/18 12:00 98.7 104 20 103/56 (72) 95 I/O 01/20/18 01/20/18 01/20/18 01/21/18 01/21/18 01/21/18 07:00 15:00 23:00 07:00 15:00 23:00 Intake Total 1106 ml 1186 ml 1151 ml Output Total 2350 ml 1850 ml 1250 ml Balance -1244 ml -664 ml -99 ml Intake Oral 0 ml 0 ml IV Total 200 ml 100 ml Tube Feeding 706 ml 586 ml 651 ml Tube Irrigant 400 ml 400 ml 400 ml Output Urine Total 2000 ml 1750 ml 1150 ml Stool Total 350 ml 100 ml 100 ml Result Diagram: 01/19/18 0420 01/19/18 0420 Imaging Last Impressions Chest X-Ray 01/13/18 0000 Signed Impressions: Service Date/Time: January 17:47 - CONCLUSION: 1. Interval removal of endotracheal tube and placement of tracheostomy tube. 2. Hazy opacity is now noted projected over the left lung. This could represent post erlying fluid. Jorge Luis Puri MD Abdomen X-Ray 01/12/18 0600 Signed Impressions: Service Date/Time: Friday, January 12, 2018 04:57 - CONCLUSION: Mild gaseous distention possibly ileus. Hussein Fontaine MD Thoracic Spine X-Ray 01/08/18 0000 Signed Impressions: Service Date/Time: Sunday, January 07, 2018 21:17 - CONCLUSION: Intraoperative spot images of the thoracic spine for localization purposes. Marcial Redmond MD Lumbar Spine X-Ray 01/08/18 0000 Signed Impressions: Service Date/Time: Sunday, January 07, 2018 21:17 - CONCLUSION: Single intraoperative spot image for localization purposes. Marcial Redmond MD Thoracic Spine MRI 01/06/18 0000 Signed Impressions: Service Date/Time: January 14:23 - CONCLUSION: 1. Multilevel cord compression is due predominantly to multiple disc protrusions. Significant cord compression is present at least 6 levels. There is also cord compression posteriorly at the T10 level due to a fluid collection in the midline which measures 6 mm in AP dimension. 2. There is also focal subcutaneous right parasagittal fluid collection at T10 and T11 which does not demonstrate peripheral contrast enhancement. An abscess is suspected. Jagjit Wilkinson MD Chest CT 01/06/18 0000 Signed Impressions: Service Date/Time: January 18:51 - CONCLUSION: 1. No abscess identified outside of the thoracic spinal canal. Small bilateral pleural effusions. NG coiled in the stomach. Frederick Rizzo MD Cervical Spine MRI 01/06/18 0000 Signed Impressions: Service Date/Time: January 14:23 - CONCLUSION: 1. Severe degenerative changes with severe spinal stenosis at C2-3, C3-4, C4-5 and C5-6. There is moderate spinal stenosis at C6-7 and C7-T1. Overall assessment of the cord is limited due to motion artifact. I do not definitively see edema within the cord however there is significant flattening of the cord at multiple levels. 2. No significant abnormal contrast enhancement identified. Leonardo Sorenson MD Brain MRI 01/06/18 0000 Signed Impressions: Service Date/Time: January 14:23 - CONCLUSION: 1. Negative MRI of the brain with and without contrast. Jagjit Wilkinson MD Abdomen/Pelvis CT 01/06/18 0000 Signed Impressions: Service Date/Time: January 18:51 - CONCLUSION: 1. Multiple laminectomy defects in the lumbar spine with some locules of air both within the canal and within the L2 vertebral body which could be related to infection. Cannot exclude abscess formation within the canal. 2. 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 3. Diffuse ileus. 4. Small effusions and mild anasarca. 5. Peck catheter in decompressed bladder. NG coiled in stomach. Frederick Rizzo MD Lumbar Spine MRI 01/05/18 0000 Signed Impressions: Service Date/Time: Friday, January 05, 2018 14:27 - CONCLUSION: 1. Extensive postsurgical changes with apparent left decompressive laminectomy leftward from L1 to through L4-5. 2. There is a well-circumscribed 1.4 cm cystic structure midline just posterior to the thecal sac at L4-5 which was not clearly present previously. May represent a small seroma which could result in some degree of central spinal stenosis despite the left laminectomy. 3. In addition, severe narrowing of the right L4-5 neural foramen with almost certain compromise of the right L4 nerve root. Emir Bowles MD Objective Remarks GENERAL: Alert, follows commands, Pleasant. SKIN: Warm. HEAD: Normocephalic. EYES: No scleral icterus. No injection or drainage. NECK: Supple, trachea midline. trach in place, no evidence of bleeding. c- collar in place. CARDIOVASCULAR: normal rate, regular rhythm. sinus. No JVD. RESPIRATORY: Equal chest rise. t-piece. no accessory muscle use. GASTROINTESTINAL: Abdomen soft, mildly distended. nontender. no guarding. MUSCULOSKELETAL: well perfused limbs. NEURO EXAM: No movement of lower extremities. Procedures 01/03/2018 1. Bilateral L1-2, L2-3, L3 4, L4 5 decompressive semi-laminectomy, medial facetectomy for spinal canal decompression. 01/06/2018, 01/07/2018 Procedure number 1. C2-C6 decompressive laminectomy Procedure number 2,Via separate incision: T2-T6 decompressive laminectomy A/P Problem List: (1) Spinal cord compression ICD Code: G95.20 - Unspecified cord compression (2) Lumbar canal stenosis ICD Code: M48.061 - Spinal stenosis, lumbar region without neurogenic claudication (3) Sepsis ICD Code: A41.9 - Sepsis, unspecified organism (4) UTI (urinary tract infection) ICD Code: N39.0 - Urinary tract infection, site not specified (5) Acute hypoxemic respiratory failure ICD Code: J96.01 - Acute respiratory failure with hypoxia (6) Thrombocytopenia ICD Code: D69.6 - Thrombocytopenia, unspecified (7) VALENCIA (acute kidney injury) ICD Code: N17.9 - Acute kidney failure, unspecified (8) Bacteremia ICD Code: R78.81 - Bacteremia (9) Osteoporosis ICD Code: M81.0 - Age-related osteoporosis without current pathological fracture (10) Altered mental status ICD Code: R41.82 - Altered mental status, unspecified (11) Acute ascending myelitis ICD Code: G04.91 - Myelitis, unspecified (12) Ileus ICD Code: K56.7 - Ileus, unspecified Status: Acute Assessment and Plan Mr. Reeves is a 67 year old male who presented to the emergency department on 01/02/2018 lower extremity numbness and weakness that began on 12/31/2017. Patient underwent prostate biopsy by urology 6 days prior to this admission. Patient tolerated the procedure and was able to go back to work. However within 24-48 hours he started experiencing fever and chills with T-max 10 1F. He went to his primary care physician who treated him with muscle relaxer and discharged home with Flexeril. He went back to his primary care physician and he was sent home on ciprofloxacin. On the day of admission patient fell in the shower due to weakness in his legs and went to [facility]. He received lidocaine patch to his left side of his low back and intramuscular injection of Decadron, Toradol and morphine and also Ativan orally for anxiety. He went home and fell again and was unable to walk. He apparently did not urinate the entire day upon admission MRI of the thoracic spine shows severe canal stenosis at T2-T3 and T5-T6 level with cord compressions complete or near complete canal obliteration at L2-3 and L3-4 and severe multilevel stenosis of the C-spine. Patient was emergently taken to the OR by neurosurgery Dr. Chakraborty. Was managed in the ICU and extubated on 01/03/2018. He was subsequently transferred to the medical floor. Critical care was again consulted on 01/07/2018 due to respiratory failure. Patient required pressors for septic shock. He underwent tracheostomy on 01/13/2018. He was subsequently transferred to hospitalist service on 2017. Neuro/Psych: Postop day #14 Bilateral L1-2, L2-3, L3 4, L4 5 decompressive semi-laminectomy, medial facetectomy for spinal canal decompression. Depression/anxiety Ascending myelopathy Spinal abscess C-spine revealed cord compression C2 through C4 and C4 through C6. T-spine 2-3/ 5 6 and lumbar spine T throughout L2 with essentially ablation of the cord from L2 through L5. Status post emergent surgery per Dr. Chakraborty 01/03 Acetaminophen 650 mg p.o. every 6 hours as needed pain 1-5/fever oxycodone and Morphine IV PRN for pain Neurochecks Discussed with Dr. Chakraborty on 01/21/2018 - Patient will likely need another MRI study next week. CV: Dyslipidemia Severe sepsis- resolved. septic shock- resolved. off vasopressors good diuresis. continue lasix 40mg iv q8h with albumin Currently on atorvastatin 40 mg p.o. daily. Hospital substitution for rosuvastatin 20 mg p.o. daily s/p hydrocortisone stress dose steroids (therapy completed 01/15) Resp: Acute hypoxic hypercarbic respiratory failure- resolving Nebs Wean FiO2 for goal SPO2 greater than 90% OOB to stretcher chair daily PT/OT/Speech therapy GI: Neurogenic ileus- resolving. Acute protein calorie malnutrition- moderate tube feeds. senna/colace, lactulose, miralax, dulcolax supp daily. prn mag citrate if no BM daily. Likely ileus is multifactorial including severe sepsis and postoperative pain, likely compounded by myelopathy and neurogenic component to his ileus Famotidine for GI prophylaxis trend prealbumin weekly : BPH Maintain Peck catheter per urology. have discussed with urology: cannot I/O straight cath for now. recommended changing peck catheter Monthly. Currently on tamsulosin 0.4 mg p.o. daily Recent prostate biopsy. Endo: Sliding scale insulin Accu-Cheks to maintain euglycemia/low regimen Renal: Acute kidney injury- resolved Avoid nephrotoxic drugs Monitor urine output Accurate I's and O's Heme: Thrombocytopenia likely secondary to sepsis- resolved. Anemia secondary to acute blood loss Haptoglobin high. LDH normal. Peripheral smear no signs of schistocytes total bilirubin normal. Status post 2 pack platelets 01/04. Followed by hematology no indication for transfusion ID: Severe Sepsis present on admission (leucocytosis, Tachycardia, source: bacteremia and epidural abscess. E.coli bacteremia high grade E.Coli UTI recent prostate biopsy. PNA aspiration/HCAP Epidural abscess, thoracic and lumbar, C/S E coli C, T, L spine osteomyelitis ID following. Ceftazidime IV for 10 weeks from 01/08/2018. Weekly CBC with diff, CMP, CRP while on IV antibiotics. Repeat imaging may be needed in 4-6 weeks to assess progress. FEN Hypokalemia- resolved Hypernatremia Hypokalemia resolved. Na is 149. Probably 1-2 L of free water deficit. Will check BMP today. If hypernatremia is persistent, we will start free water replacement. Discussed with patient's life partner (as stated in the EMR) regarding PEG tube placement as it might be safer than tube feed by NG tube. Life partner agrees with PEG tube placement. Patient also agrees with this plan. Will consult IR for PEG tube placement. Access - 01/15 PICC line Peck: keep per urology. change monthly. Full code. Famotidine, SubQ Heparin. Problem Qualifiers (1) Lumbar canal stenosis: Qualified Codes: M48.061 - Spinal stenosis, lumbar region without neurogenic claudication (2) UTI (urinary tract infection): Qualified Codes: N30.00 - Acute cystitis without hematuria (3) Osteoporosis: Qualified Codes: M81.0 - Age-related osteoporosis without current pathological fracture (4) Altered mental status: Qualified Codes: R40.4 - Transient alteration of awareness Dwayne Russell DO Jan 21, 2018 10:16 am
--- NOTE | 2018-01-21 10:38 | HHI.NSPN ---
(Tigre Estrada) History Chief Complaint: Pain to the legs. (Tigre Estrada) Interval History 01/03: 67-year-old male who underwent a prostate biopsy one week ago, on . He states that on the evening of 12/29/17 on into the morning of 12/30/17, he developed fever and chills, low back pain, and lower extremity numbness and paresthesias and muscle spasm. He was seen by his primary care physician and was given medication including muscle relaxant. The symptoms persisted and he returned to his primary care physician on Wednesday , 01/01/18 and was given additional medications including Cipro. He awoke on 01/02/2018 with increased lower extremity weakness and numbness, and fell in the shower in the morning, after which he was unable to ambulate or lift his legs off the bed, and continued to experience pain in the lower back. He went to the emergency room at [facility], and was given additional medication injections. He states that he could not lift his legs off the bed or ambulate in the emergency room, and was taken out to his car and lifted into the car and sent home again. He fell in the driveway again trying to get back into the house. He apparently did not urinate for the entire day. He has no complaint of pain which is numbness paresthesias in the upper extremities. No numbness or paresthesias over the chest or abdomen or pelvic region. The patient was emergently taken to the operating room for a bilateral L1-2, L2- 3, L3 4, L4 5 decompressive semi-laminectomy, medial facetectomy for spinal canal decompression. Post-operatively the patient remained intubated and was admitted to [facility] for further care and monitoring. 01/04: When seen this afternoon the patient has been extubated. He is awake and alert and readily interacts. He does report pain to the neck and the lower back. He has no numbness, tingling or weakness to the upper extremities but does say he will have pain shooting down them if he moves wrong. He denies any pain to the lower extremities but does have numbness to both feet and about the only movement he is able to do is move his knees medially and laterally. Upon examination the patient's sensorimotor exam is improved from pre-operatively 01/05: The patient desaturated this morning and a Halicat was initiated. From the EMR Nursing reported that the patient was lethargic and difficult to arouse. His sat was in the 80s and he did have a fever of 102F. He was therefore transferred back to [facility]. A chest x-ray demonstrated a left lower lobe consolidation. His blood, urine and lumbar spine wound cultures have all come back positive for Escherichia coli. When seen this afternoon the patient was awake, alert and readily interacted. He was visiting with his significant other. His upper extremity examination was variable with some improvement and some decline. His sensation and motor strength to the lower extremities had declined. The surgical incision looked good upon examination and the GUIDO drain was removed. 01/06: This afternoon the patient is on a nonrebreather mask when seen, he is tachypneic and laboured. He says he has some low back pain, especially at night. He denies any neck pain or headache. He has worsening of his muscle strength to the upper extremities and it remains poor to the lower. 01/07: The patient was urgently intubated yesterday evening for worsening respiratory status and remains so this morning. He underwent emergent surgery for decompression of the cervical and thoracic spines. Post-operatively he returned to [facility]. He is sedated with propofol. He has vasopressin and norepinephrine infusing for blood pressure support. He is obtunded but sedated and there is no response to any stimulation. 01/08: Patient sedated with Diprivan and fentanyl drips. He was biting the tube and was also recently placed on Versed. He is not opening eyes or following commands. He remains sedated for vent synchrony. 01/09: Pt sedated with Diprivan and Fentanyl drips. He nods his head slightly to questions. Intubated a/c. RN reports all bandages are dry with only mild post op staining. 01/10: When seen the patient is lethargic. He is sedated with propofol and midazolam. He continues to be intubated and mechanically ventilated. His significant other stated that the patient was awake a few minutes ago. When he called the patient's name he opened both eyes. He did blink to command. There was no motor response to any stimulation. 01/11: This morning the patient is drowsy when seen. He continues to be sedated with propofol and midazolam. He is still intubated and mechanically ventilated. His eyes open to voice. He does not move the extremities to any stimulation even though his sedation is held. 01/12: The patient is drowsy. He is on ketamine for sedation and pain control. He remains intubated and mechanically ventilated. He opened his eyes to voice. He indicated he had no pain. He weakly gripped with the right hand to command and gave a thumbs up. His care attendant was strong when local noxious stimulation was applied. He had no response with the other extremities to local noxious stimulation. 01/14: When seen the patient is awake. He has been trached and mechanically ventilated. Nursing does say that a CPAP trial may be done today. He nods appropriately. He denies any pain to the neck or back. Upon examination he is able to give a weak hand grasp bilaterally and has muscle contractions to the upper extremities when asked to lift them off the bed. He has no response to noxious stimulation of the lower extremities. He has numbness to the left lower but says the right lower and both upper extremities feel normal. 01/15: doing well, family at beside, remains very weak in extremities 01/16: sitting up in stretcher chair, alert, nursing reports increased sensation in lower extremities, no significant change to motor function. 01/17: The patient is awake and alert in bed watching TV and visiting with his significant other. He is trached and on a T-piece. He does try to verbalise some and nods appropriately. He does have pain to the extremities as well as some decreased sensation. He is moving the upper extremities spontaneously and has trace contraction of the lower extremities. 01/18: This morning the patient is in the cardiac/stretcher chair watching TV with his significant other. He is awake and alert. He says he feels better today and his pain is better also. He is able to move the upper extremities spontaneously but has no movement to the lower extremities. 01/19: When seen the patient is awake and alert in bed visiting with his significant other. Infectious Disease is at the bedside. He indicates he is doing better today than yesterday and denies any pain to the neck, back or extremities. He is moving the upper extremities purposefully but is not able to move the left except for a trace muscle contraction to command. 01/20: The patient is awake watching TV and visiting with his significant other. He indicates he is doing "so-so" this morning. He is able to move both upper extremities to command and spontaneously. There is a slight muscle contraction to the left lower to command but nothing to the right. 01/21: This morning the patient is awake and watching TV visiting with his significant other. He indicates he is doing "so-so" still, but does nod yes when asked if better than yesterday. He is spontaneously moving his upper extremities and has an improving motor exam. He has no response to lower extremities to noxious stimulation but he does have slight muscle contraction to the left lower extremity to command. Sensation is intact to the uppers and is variable to the lowers. (Tigre Estrada) Exam Results 01/19/18 01/19/18 01/20/18 01/20/18 01/21/18 01/21/18 06:00 18:00 06:00 18:00 06:00 18:00 Intake Total 1560 ml 949 ml 1106 ml 2337 ml Output Total 3700 ml 1750 ml 2350 ml 3100 ml Balance -2140 ml -801 ml -1244 ml -763 ml Intake Oral 100 ml 0 ml IV Total 400 ml 300 ml Tube Feeding 660 ml 549 ml 706 ml 1237 ml Tube Irrigant 400 ml 400 ml 400 ml 800 ml Output Urine Total 3650 ml 1650 ml 2000 ml 2900 ml Stool Total 50 ml 100 ml 350 ml 200 ml Vital Signs Date Time Temp Pulse Resp B/P (MAP) Pulse Ox O2 Delivery O2 Flow Rate FiO2 01/21/18 07:57 97 T-piece 21 01/21/18 06:00 92 01/21/18 05:00 99.0 94 17 92/55 (67) 94 01/21/18 04:00 94 01/21/18 02:00 93 01/21/18 00:00 99.1 90 22 101/56 (71) 14 01/21/18 00:00 90 01/20/18 22:00 90 01/20/18 20:41 99 T-piece 21 01/20/18 20:00 101 01/20/18 20:00 101.1 100 18 92/53 (66) 96 01/20/18 19:00 95 T-Piece 28 01/20/18 18:00 90 01/20/18 16:06 96 T-piece 21 01/20/18 16:00 84 01/20/18 16:00 98.0 86 22 105/60 (75) 95 01/20/18 14:00 90 01/20/18 12:00 84 01/20/18 12:00 98.7 104 20 103/56 (72) 95 01/20/18 10:00 90 01/20/18 09:07 20 01/20/18 08:00 98.7 96 18 104/63 (77) 95 01/20/18 08:00 84 01/20/18 07:00 99 T-Piece 28 01/20/18 06:00 90 01/20/18 04:00 98.7 84 22 108/56 (73) 95 01/20/18 04:00 84 01/20/18 02:00 92 01/20/18 00:00 86 01/20/18 00:00 98.7 86 19 125/58 (80) 95 01/19/18 22:00 87 01/19/18 20:00 99.1 105 24 110/56 (74) 97 01/19/18 20:00 105 01/19/18 19:00 99 T-piece 28 01/19/18 19:00 99 T-Piece 28 01/19/18 18:00 99 01/19/18 16:00 101 01/19/18 16:00 98.0 73 20 101/57 (72) 97 01/19/18 14:22 18 01/19/18 14:00 99 01/19/18 12:00 101 01/19/18 10:00 106 01/19/18 09:12 97 T-piece 21 01/19/18 08:00 97.0 103 22 111/59 (76) 98 01/19/18 08:00 106 01/19/18 07:00 99 T-Piece 28 01/19/18 06:00 104 01/19/18 04:00 98.0 106 25 122/72 (89) 98 01/19/18 04:00 106 01/19/18 02:00 94 01/19/18 00:00 88 01/19/18 00:00 98.4 88 16 129/66 (87) 97 01/18/18 22:00 82 01/18/18 21:57 99 T-piece 28 01/18/18 20:00 98.1 86 22 100/53 (69) 99 01/18/18 20:00 86 01/18/18 19:00 99 T-Piece 28 01/18/18 18:00 89 01/18/18 16:00 107/57 (74) 01/18/18 16:00 89 01/18/18 14:01 94 01/18/18 12:00 89 01/18/18 12:00 98.9 99 18 123/52 (75) 99 (Tigre Estrada) Physical Examination GENERAL: Awake & alert in bed watching TV & visiting w/his significant other. Trached & on T-piece. His skin is cool & dry. HEENT: Normocephalic, atraumatic. NGT. NECK: [place] J cervical collar in place. No JVD. Trached & trachea appears midline. MUSCULOSKELETAL: Moving BUE spontaneously & to command, slight muscle contraction to LLE to command. No evident clubbing or deformity. NEUROLOGICAL: Awake & alert. Spontaneous eye opening. Nonverbal, trached, mouths some words. Nodded head appropriately to questions. Sensation intact to light touch to BUE, right thigh & left anterior thigh. Decreased to left posterior thigh & proximal right lower leg, absent to distal right lower leg & left lower leg. [place] nail bed pressure to left foot but not right. Moving BUE spontaneously & purposefully. RUE motor strength is 3+ to 4+/5; LUE 3 +/5 biceps, 3/5 triceps, 4+/5 wrist flexors/extensors, 4/5 hand intrinsics, 1/5 deltoid. Slight muscle contraction to LLE to command. No movement to noxious stimulation BLE. (Tigre Estrada) Medical Decision Making Impression and Plan Impression: 1. Severe progressive paraplegia. Although he has significant spinal stenosis in the cervical thoracic and lumbar region, his overall presentation and exam suggests that the lumbar stenosis is the immediate cause of his severe lower extremity deficit, positive cauda equina syndrome. 2. Possible sepsis 3. Acute kidney disease 4. 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 Severe lumbar canal stenosis 2. Cauda equina syndrome 3. Cervical degenerative disease with severe stenosis and myelopathy 4. Thoracic disc disease with severe canal stenosis and myelopathy 5. Sepsis 6. Thrombocytopenia 7. Acute kidney disease Postoperative Diagnosis : (1) Cervical disc disease with myelopathy (2) Thoracic disc disease with myelopathy Postoperative Diagnosis : (1) Spinal epidural abscess (2) Thoracic disc disease with myelopathy (3) Lumbar canal stenosis 4. Postoperative lumbar epidural hematoma Patient is doing better today. He is awake & alert. Trached & on T-piece. Improving motor exam BUE, slight LLE muscle contraction to command but no movement w/stimulation, no right lower movement to stimulation. Lower extremities w/variable sensation. T max 101.1 yesterday evening. Intermittent tachycardia. GUIDO #1 (lower back) & #2 (cervical) d/c'd f2. GUIDO drains #3 (lumbar) & # 4 (lumbar) d/c'd . Labs pending for today. Wound culture () positive for Escherichia coli, final . POD #18 () s/p: 1. Bilateral L1-2, L2-3, L3 4, L4 5 decompressive semi-laminectomy, medial facetectomy for spinal canal decompression. POD #14 (-) s/p: Procedure number 1. C2-C6 decompressive laminectomy Procedure number 2,Via separate incision: T2-T6 decompressive laminectomy POD #13 (-) s/p: Part 2 of planned two-part procedure. Procedure #1: 1. [id number] decompressive semi-laminectomy, evacuation thoracic epidural abscess 2. Evacuation thoracic epidural abscess. Procedure #2: Via separate incision. 1. Revision L2-3, L3 4, L4 5 decompressive semi-laminectomy 2. Evacuation lumbar epidural abscess 3. Evacuation of postoperative lumbar epidural hematoma Plan: Discussed plan of care w/patient & significant other. Primary & critical care management per [facility]. Neuro checks. Turn patient q2h but keep the patient off of his back. Physical & Occupational Therapy eval & tx. Mechanical DVT prophylaxis. Okay for pharmacologic DVT prophylaxis. Plan to do MRI cervical, thoracic & lumbar spines on Wednesday. (Tigre Estrada) Attending Statement The exam, history, and the medical decision-making described in the above note were completed with the assistance of the mid-level provider. I reviewed and agree with the findings presented. I attest that I had a [id number] encounter with the patient on the same day, and personally performed and documented my assessment and findings in the medical record. No significant change in examination versus 01/20/2018. Remains awake and alert Discussed with patient at length. Plan follow-up MRI of the spine next week. (Jerry Chakraborty MD) Tigre Estrada Jan 21, 2018 10:38 Jerry Chakraborty MD Jan 22, 2018 19:51
[2018-01-21 11:00] LABS: CREATININE 1.72 MG/DL (0.60-1.30)
[2018-01-21 11:01] LABS: BICARBONATE 36.3 MEQ/L (21.0-32.0); CALCIUM 9.2 MG/DL (8.5-10.1)
[2018-01-21] MEDS: POTASSIUM CHLOR 40 MEQ PREMIX 100 ML IV PRN ×2 (12:57→16:36)
--- NOTE | 2018-01-21 17:40 | HHI.IDPN ---
Subjective Subjective Remarks Mr. Reeves is a 67 y/o CM with history of BPH who underwent a prostate biopsy one week ago, on 12/27/17. On the evening of 12/29/17 he developed fever and chills, low back pain, and lower extremity numbness and paresthesias and muscle spasm. He was seen by his primary care physician and was given medication including muscle relaxant. The symptoms persisted and he returned to his primary care physician on 01/01/18 and was given additional medications including Cipro and medrol dose pack. On 01/02/2018 patient woke up with increased lower extremity weakness and numbness, and fell in the shower in the morning, after which he was unable to ambulate or lift his legs off the bed , and continued to experience pain in the lower back. He went to the emergency room at [facility], and was given additional medication injections. He could not lift his legs off the bed or ambulate in the emergency room, and was taken out to his car and lifted into the car and sent home again. He fell in the driveway again trying to get back into the house. He apparently did not urinate for the entire day. He has no complaint of pain which is numbness paresthesias in the upper extremities. Reportedly on admission there was no numbness or paresthesias over the chest or abdomen or pelvic region. The MRI of thoracic spine shows severe canal stenosis at T2-3 and T5-6 level with cord compressions, complete or near complete canal obliteration at L2-3 L3- 4 and severe multilevel canal stenosis of the C-spine. Entire spine including C spine shows areas of stenosis. Upon my discussion with patient had to be emergently taken to the OR for decompression. Intraop cultures were taken and no hardware placed at present time but it appears that patient will need more surgeries. The MRIs done were non contrast due to Acute renal failure on admission and cannot be repeated. Per dw plan is to treat as epidural abscess stone since patient was treated for few days with antibiotics prior to arrival and also due to patient needing hardware placement which can be seeded. Previously, Intubated, being weaned off sedation, UO is good peck in place. Not on any pressors. There is a plan wean and extubate. ID consulted for evaluation and Management of GN madonna bacteremia (E.coli CTX M negative) and possible epidural abscess. Patient underwent procedure C2-C6 decompressive laminectomy, procedure to T2-T6 decompressive laminectomy as well as lumbar. (Separate incisions) by Dr. Chakraborty Overnight events reviewed with RN. On T-piece S/P trach 01/13 [place] J collar in place. Await PEG tube placement Antibiotics Ceftaz IV Lines Line sites with no e.o infection Past Medical History Depression BPH Hypothyroidism Past Surgical History Prostate biopsy, Tonsillectomy, history of kidney surgery. Prostate surgery Allergies: Coded Allergies: No Known Allergies (Unverified , 01/02/18) Objective . Vital Signs Date Time Temp Pulse Resp B/P (MAP) Pulse Ox O2 Delivery O2 Flow Rate FiO2 01/21/18 16:00 94 01/21/18 16:00 98.6 94 13 117/71 (86) 95 01/21/18 14:00 94 01/21/18 12:00 92 01/21/18 12:00 99.2 92 19 110/60 (77) 98 01/21/18 10:00 94 01/21/18 08:00 99.0 90 10 100/55 (70) 94 01/21/18 08:00 90 01/21/18 07:57 97 T-piece 21 01/21/18 07:00 90 T-Piece 28 01/21/18 06:00 92 01/21/18 05:00 99.0 94 17 92/55 (67) 94 01/21/18 04:00 94 01/21/18 02:00 93 01/21/18 00:00 99.1 90 22 101/56 (71) 14 01/21/18 00:00 90 01/20/18 22:00 90 01/20/18 20:41 99 T-piece 21 01/20/18 20:00 101 01/20/18 20:00 101.1 100 18 92/53 (66) 96 01/20/18 19:00 95 T-Piece 28 01/20/18 18:00 90 . Laboratory Tests Test 01/21/18 10:00 Blood Urea Nitrogen 54 MG/DL Creatinine 1.72 MG/DL Random Glucose 147 MG/DL Calcium Level 9.2 MG/DL Sodium Level 150 MEQ/L Potassium Level 3.2 MEQ/L Chloride Level 107 MEQ/L Carbon Dioxide Level 36.3 MEQ/L Anion Gap 7 MEQ/L Estimat Glomerular Filtration Rate 40 ML/MIN Imaging Chest X-Ray 01/13/18 0000 Signed Impressions: Service Date/Time: January 17:47 - CONCLUSION: 1. Interval removal of endotracheal tube and placement of tracheostomy tube. 2. Hazy opacity is now noted projected over the left lung. This could represent post erlying fluid. Jorge Luis Puri MD Abdomen X-Ray 01/12/18 0600 Signed Impressions: Service Date/Time: Friday, January 12, 2018 04:57 - CONCLUSION: Mild gaseous distention possibly ileus. Hussein Fontaine MD Thoracic Spine X-Ray 01/08/18 0000 Signed Impressions: Service Date/Time: Sunday, January 07, 2018 21:17 - CONCLUSION: Intraoperative spot images of the thoracic spine for localization purposes. Marcial Redmond MD Lumbar Spine X-Ray 01/08/18 0000 Signed Impressions: Service Date/Time: Sunday, January 07, 2018 21:17 - CONCLUSION: Single intraoperative spot image for localization purposes. Marcial Redmond MD Thoracic Spine MRI 01/06/18 0000 Signed Impressions: Service Date/Time: January 14:23 - CONCLUSION: 1. Multilevel cord compression is due predominantly to multiple disc protrusions. Significant cord compression is present at least 6 levels. There is also cord compression posteriorly at the T10 level due to a fluid collection in the midline which measures 6 mm in AP dimension. 2. There is also focal subcutaneous right parasagittal fluid collection at T10 and T11 which does not demonstrate peripheral contrast enhancement. An abscess is suspected. Jagjit Wilkinson MD Chest CT 01/06/18 0000 Signed Impressions: Service Date/Time: January 18:51 - CONCLUSION: 1. No abscess identified outside of the thoracic spinal canal. Small bilateral pleural effusions. NG coiled in the stomach. Frederick Rizzo MD Cervical Spine MRI 01/06/18 0000 Signed Impressions: Service Date/Time: January 14:23 - CONCLUSION: 1. Severe degenerative changes with severe spinal stenosis at C2-3, C3-4, C4-5 and C5-6. There is moderate spinal stenosis at C6-7 and C7-T1. Overall assessment of the cord is limited due to motion artifact. I do not definitively see edema within the cord however there is significant flattening of the cord at multiple levels. 2. No significant abnormal contrast enhancement identified. Leonardo Sorenson MD Brain MRI 01/06/18 Signed Impressions: Service Date/Time: January 14:23 - CONCLUSION: 1. Negative MRI of the brain with and without contrast. Jagjit Wilkinson MD Abdomen/Pelvis CT 01/06/18 Signed Impressions: Service Date/Time: January 18:51 - CONCLUSION: 1. Multiple laminectomy defects in the lumbar spine with some locules of air both within the canal and within the L2 vertebral body which could be related to infection. Cannot exclude abscess formation within the canal. 2. 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 3. Diffuse ileus. 4. Small effusions and mild anasarca. 5. Peck catheter in decompressed bladder. NG coiled in stomach. Frederick Rizzo MD Lumbar Spine MRI 01/05/18 Signed Impressions: Service Date/Time: Friday, January 05, 2018 14:27 - CONCLUSION: 1. Extensive postsurgical changes with apparent left decompressive laminectomy leftward from L1 to through L4-5. 2. There is a well-circumscribed 1.4 cm cystic structure midline just posterior to the thecal sac at L4-5 which was not clearly present previously. May represent a small seroma which could result in some degree of central spinal stenosis despite the left laminectomy. 3. In addition, severe narrowing of the right L4-5 neural foramen with almost certain compromise of the right L4 nerve root. Emir Bowles MD Physical Exam GENERAL: awake, on T-pice, NAD. Up in stretcher chair SKIN: Warm and dry. Edematous HEAD: Normocephalic. EYES: Pupils equal round. No scleral icterus. No injection or drainage. ENT: Moist mucosa NECK: [place] J collar in place. Trach site ok CARDIOVASCULAR: Tachycardic. RESPIRATORY: Has scattered rhonchi GASTROINTESTINAL: Abdomen non-tender, soft, slightly distended. : Peck catheter draining gila colored urine. Significant scrotal edema. BACK: Surgical incisions healing well per nursing report. MUSCULOSKELETAL: Extremities without clubbing, cyanosis. Generalized edema +1 of extremities. NEUROLOGICAL: Opens eyes follows commands. Moves UE at wrist level. No movement in BLE. Assessment & Plan Remarks Severe Sepsis present on admission (leucocytosis, Tachycardia, source: bacteremia and epidural abscess. E.coli bacteremia high grade E.Coli UTI recent prostate biopsy. PNA aspiration/HCAP Epidural abscess, thoracic and lumbar, C/S E coli - S/P surgery and evacuation Recent history of prostate biopsy as risk factor for E.coli bacteremia. Incomplete Quadriparesis. Paraparesis present on admission. Recs: DC Ceftazidime IV Start Ceftriaxone IV q12hrs (q12hrs dosing for neuro involvement/discitis) for E.coli Sepsis and Osteomyelitis of C,T,L spine plus epidural abscesses. Plan on 10 weeks from last surgery (count down from 07/10/2018) Possible transfer to [facility] or [place]. When transferred please continue Ceftriaxone IV as above. Weekly CBC with diff, CMP, CRP while on IV antibiotics. Repeat imaging needed in 4-6 weeks depending on clinical progress or sooner if any change in clinical condition. PICC placed, CL DCed. dw patient and significant other. Shanda Charles MD Jan 21, 2018 17:40
[2018-01-21] MEDS: cefTRIAXone INJ 2,000 MG in SODIUM CHLORIDE 0.9% INJ 100 ML IV SCH (19:00)
[2018-01-21] MEDS: TAMSULOSIN HCL 0.4 MG CAP PO SCH (21:01)
[2018-01-22] VITALS (16 sets, daily range): BP systolic 89–119; BP diastolic 54–70; PULSE 90–98; RESP 11–24; TEMP 97.8–100; O2SAT 95–99
[2018-01-22] MEDS: POTASSIUM PHOSPHATE/SODIUM PHOSPHATE 250 MG TAB PO SCH ×5 (00:25→23:30)
[2018-01-22] MEDS: FREE WATER G-TUBE SCH ×4 (00:26→17:24)
[2018-01-22] MEDS: FUROSEMIDE 40 MG/4 ML VIAL IV PUSH SCH (04:00)
[2018-01-22 05:41] LABS: AUTOMATED NEUTROPHIL # 7.7 TH/MM3 (1.8-7.7); BASOPHIL % 0.4 % (0.0-2.0); EOSINOPHIL # 0.3 TH/MM3 (0-0.4); EOSINOPHIL % 2.8 % (0.0-4.0); LYMPH % 9.7 % (9.0-44.0); LYMPHOCYTE # 0.9 TH/MM3 (1.0-4.8); MEAN CELL VOLUME 91.1 FL (80.0-100.0); MEAN CORPUSCULAR HEMOGLOBIN 30.7 PG (27.0-34.0); MEAN CORPUSCULAR HGB CONC 33.8 % (32.0-36.0); MEAN PLATELET VOLUME 8.5 FL (7.0-11.0); MONOCYTE # 0.6 TH/MM3 (0-0.9); NEUT % 81.1 % (16.0-70.0); PLATELET COUNT 234 TH/MM3 (150-450); RED BLOOD COUNT 2.03 MIL/MM3 (4.50-5.90); RED CELL DISTRIBUTION WIDTH 14.9 % (11.6-17.2); WHITE BLOOD COUNT 9.5 TH/MM3 (4.0-11.0)
[2018-01-22 05:51] LABS: HEMATOCRIT 18.4 % (39.0-51.0); HEMOGLOBIN 6.2 GM/DL (13.0-17.0)
[2018-01-22 05:53] LABS: BICARBONATE 35.3 MEQ/L (21.0-32.0); CREATININE 2.04 MG/DL (0.60-1.30)
[2018-01-22] MEDS ORDERED: SODIUM CHLOR 0.9% 250 ML INJ 250 ML IV ONE (06:00)
[2018-01-22] MEDS: cefTRIAXone INJ 2,000 MG in SODIUM CHLORIDE 0.9% INJ 100 ML IV SCH ×2 (06:02→17:24)
[2018-01-22] MEDS: ALBUMIN 25% INJ 100 ML IV SCH ×3 (06:02→20:25)
[2018-01-22] MEDS: HEPARIN SODIUM - SQ 10,000 UNITS/ML VIAL SQ SCH ×3 (06:12→22:34)
[2018-01-22] MEDS: ARTIFICIAL TEARS OPTH SOLN 15 ML BTL EACH EYE SCH ×3 (06:12→22:54)
[2018-01-22] MEDS: POLYETHYLENE GLYCOL 17 GM PKG PO SCH ×2 (08:35→21:00)
[2018-01-22] MEDS: LACTULOSE SYRUP 20 GM/30 ML CUP PO SCH ×2 (08:35→21:00)
[2018-01-22] MEDS: SODIUM CHLORIDE 0.9% FLUSH 10 ML FLUSH IV FLUSH SCH ×2 (08:35→21:00)
[2018-01-22] MEDS: DOCUSATE SODIUM 50 MG/SENNA 8.6 MG TAB PO SCH ×2 (08:36→20:26)
[2018-01-22] MEDS: BISACODYL 10 MG SUPP RECTAL SCH (08:36)
[2018-01-22] MEDS: FAMOTIDINE 20 MG TAB PO SCH ×2 (08:41→20:26)
[2018-01-22] MEDS: METHOCARBAMOL 500 MG TAB PO SCH ×4 (08:42→20:26)
[2018-01-22] MEDS: ATORVASTATIN 40 MG TAB PO SCH (08:42)
[2018-01-22] MEDS: GABAPENTIN 250 MG/5 ML UDC NG SCH ×3 (08:43→17:24)
--- NOTE | 2018-01-22 10:52 | HHI.PR ---
Subjective Remarks Follow up for C, T, L epidural abscess, bacteremia, respiratory failure. Patient is currently doing well. No acute concerns. He is able to move his upper extremities well and now he is moving his left lower extremity slightly. Objective Vitals Vital Signs Date Time Temp Pulse Resp B/P (MAP) Pulse Ox O2 Delivery O2 Flow Rate FiO2 01/22/18 10:11 99.2 93 19 119/62 96 01/22/18 08:19 98.9 93 14 103/62 98 01/22/18 08:03 99.1 90 24 107/59 99 01/22/18 08:00 93 01/22/18 08:00 99.1 92 18 104/63 (77) 98 01/22/18 07:00 99 T-Piece 28 01/22/18 06:00 92 01/22/18 04:00 94 01/22/18 04:00 99.0 94 13 89/54 (66) 95 01/22/18 02:00 96 01/22/18 00:00 100.0 96 18 95/55 (68) 97 01/22/18 00:00 96 01/21/18 22:00 93 01/21/18 20:10 96 T-piece 21 01/21/18 20:00 100.0 98 12 105/57 (73) 95 01/21/18 20:00 98 01/21/18 19:00 96 T-Piece 01/21/18 18:00 92 01/21/18 16:00 94 01/21/18 16:00 98.6 94 13 117/71 (86) 95 01/21/18 14:00 94 01/21/18 12:00 92 01/21/18 12:00 99.2 92 19 110/60 (77) 98 I/O 01/21/18 01/21/18 01/21/18 01/22/18 01/22/18 01/22/18 07:00 15:00 23:00 07:00 15:00 23:00 Intake Total 1151 ml 878 ml 1007 ml Output Total 1250 ml 1750 ml 825 ml Balance -99 ml -872 ml 182 ml Intake Oral 0 ml IV Total 100 ml 100 ml Tube Feeding 651 ml 378 ml 607 ml Tube Irrigant 400 ml 400 ml Other 400 ml Output Urine Total 1150 ml 1650 ml 825 ml Stool Total 100 ml 100 ml # Bowel Movements 3 Result Diagram: 01/22/18 0503 01/22/18 0503 Imaging Last Impressions Chest X-Ray 01/13/18 0000 Signed Impressions: Service Date/Time: January 17:47 - CONCLUSION: 1. Interval removal of endotracheal tube and placement of tracheostomy tube. 2. Hazy opacity is now noted projected over the left lung. This could represent post erlying fluid. Jorge Luis Puri MD Abdomen X-Ray 01/12/18 0600 Signed Impressions: Service Date/Time: Friday, January 12, 2018 04:57 - CONCLUSION: Mild gaseous distention possibly ileus. Hussein Fontaine MD Thoracic Spine X-Ray 01/08/18 0000 Signed Impressions: Service Date/Time: Sunday, January 07, 2018 21:17 - CONCLUSION: Intraoperative spot images of the thoracic spine for localization purposes. Marcial Redmond MD Lumbar Spine X-Ray 01/08/18 0000 Signed Impressions: Service Date/Time: Sunday, January 07, 2018 21:17 - CONCLUSION: Single intraoperative spot image for localization purposes. Marcial Redmond MD Thoracic Spine MRI 01/06/18 0000 Signed Impressions: Service Date/Time: January 14:23 - CONCLUSION: 1. Multilevel cord compression is due predominantly to multiple disc protrusions. Significant cord compression is present at least 6 levels. There is also cord compression posteriorly at the T10 level due to a fluid collection in the midline which measures 6 mm in AP dimension. 2. There is also focal subcutaneous right parasagittal fluid collection at T10 and T11 which does not demonstrate peripheral contrast enhancement. An abscess is suspected. Jagjit Wilkinson MD Chest CT 01/06/18 0000 Signed Impressions: Service Date/Time: January 18:51 - CONCLUSION: 1. No abscess identified outside of the thoracic spinal canal. Small bilateral pleural effusions. NG coiled in the stomach. Frederick Rizzo MD Cervical Spine MRI 01/06/18 0000 Signed Impressions: Service Date/Time: January 14:23 - CONCLUSION: 1. Severe degenerative changes with severe spinal stenosis at C2-3, C3-4, C4-5 and C5-6. There is moderate spinal stenosis at C6-7 and C7-T1. Overall assessment of the cord is limited due to motion artifact. I do not definitively see edema within the cord however there is significant flattening of the cord at multiple levels. 2. No significant abnormal contrast enhancement identified. Leonardo Sorenson MD Brain MRI 01/06/18 0000 Signed Impressions: Service Date/Time: January 14:23 - CONCLUSION: 1. Negative MRI of the brain with and without contrast. Jagjit Wilkinson MD Abdomen/Pelvis CT 01/06/18 0000 Signed Impressions: Service Date/Time: January 18:51 - CONCLUSION: 1. Multiple laminectomy defects in the lumbar spine with some locules of air both within the canal and within the L2 vertebral body which could be related to infection. Cannot exclude abscess formation within the canal. 2. 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 3. Diffuse ileus. 4. Small effusions and mild anasarca. 5. Peck catheter in decompressed bladder. NG coiled in stomach. Frederick Rizzo MD Lumbar Spine MRI 01/05/18 0000 Signed Impressions: Service Date/Time: Friday, January 05, 2018 14:27 - CONCLUSION: 1. Extensive postsurgical changes with apparent left decompressive laminectomy leftward from L1 to through L4-5. 2. There is a well-circumscribed 1.4 cm cystic structure midline just posterior to the thecal sac at L4-5 which was not clearly present previously. May represent a small seroma which could result in some degree of central spinal stenosis despite the left laminectomy. 3. In addition, severe narrowing of the right L4-5 neural foramen with almost certain compromise of the right L4 nerve root. Emir Bowles MD Objective Remarks GENERAL: Alert, follows commands, Pleasant. SKIN: Warm. HEAD: Normocephalic. EYES: No scleral icterus. No injection or drainage. NECK: Supple, trachea midline. trach in place, no evidence of bleeding. c- collar in place. CARDIOVASCULAR: normal rate, regular rhythm. sinus. No JVD. RESPIRATORY: Equal chest rise. t-piece. no accessory muscle use. GASTROINTESTINAL: Abdomen soft, mildly distended. nontender. no guarding. MUSCULOSKELETAL: well perfused limbs. NEURO EXAM: No movement of lower extremities. Procedures 01/03/2018 1. Bilateral L1-2, L2-3, L3 4, L4 5 decompressive semi-laminectomy, medial facetectomy for spinal canal decompression. 01/06/2018, 01/07/2018 Procedure number 1. C2-C6 decompressive laminectomy Procedure number 2,Via separate incision: T2-T6 decompressive laminectomy A/P Problem List: (1) Spinal cord compression ICD Code: G95.20 - Unspecified cord compression (2) Lumbar canal stenosis ICD Code: M48.061 - Spinal stenosis, lumbar region without neurogenic claudication (3) Sepsis ICD Code: A41.9 - Sepsis, unspecified organism (4) UTI (urinary tract infection) ICD Code: N39.0 - Urinary tract infection, site not specified (5) Acute hypoxemic respiratory failure ICD Code: J96.01 - Acute respiratory failure with hypoxia (6) Thrombocytopenia ICD Code: D69.6 - Thrombocytopenia, unspecified (7) VALENCIA (acute kidney injury) ICD Code: N17.9 - Acute kidney failure, unspecified (8) Bacteremia ICD Code: R78.81 - Bacteremia (9) Osteoporosis ICD Code: M81.0 - Age-related osteoporosis without current pathological fracture (10) Altered mental status ICD Code: R41.82 - Altered mental status, unspecified (11) Acute ascending myelitis ICD Code: G04.91 - Myelitis, unspecified (12) Ileus ICD Code: K56.7 - Ileus, unspecified Status: Acute Assessment and Plan Mr. Reeves is a 67 year old male who presented to the emergency department on 01/02/2018 lower extremity numbness and weakness that began on 12/31/2017. Patient underwent prostate biopsy by urology 6 days prior to this admission. Patient tolerated the procedure and was able to go back to work. However within 24-48 hours he started experiencing fever and chills with T-max 10 1F. He went to his primary care physician who treated him with muscle relaxer and discharged home with Flexeril. He went back to his primary care physician and he was sent home on ciprofloxacin. On the day of admission patient fell in the shower due to weakness in his legs and went to [facility]. He received lidocaine patch to his left side of his low back and intramuscular injection of Decadron, Toradol and morphine and also Ativan orally for anxiety. He went home and fell again and was unable to walk. He apparently did not urinate the entire day upon admission MRI of the thoracic spine shows severe canal stenosis at T2-T3 and T5-T6 level with cord compressions complete or near complete canal obliteration at L2-3 and L3-4 and severe multilevel stenosis of the C-spine. Patient was emergently taken to the OR by neurosurgery Dr. Chakraborty. Was managed in the ICU and extubated on 01/03/2018. He was subsequently transferred to the medical floor. Critical care was again consulted on 01/07/2018 due to respiratory failure. Patient required pressors for septic shock. He underwent tracheostomy on 01/13/2018. He was subsequently transferred to hospitalist service on 2017. Neuro/Psych: Postop day #14 Bilateral L1-2, L2-3, L3 4, L4 5 decompressive semi-laminectomy, medial facetectomy for spinal canal decompression. Depression/anxiety Ascending myelopathy Spinal abscess C-spine revealed cord compression C2 through C4 and C4 through C6. T-spine 2-3/ 5 6 and lumbar spine T throughout L2 with essentially ablation of the cord from L2 through L5. Status post emergent surgery per Dr. Chakraborty 01/03 Acetaminophen 650 mg p.o. every 6 hours as needed pain 1-5/fever oxycodone and Morphine IV PRN for pain Neurochecks Discussed with Dr. Chakraborty on 01/21/2018 - Patient will likely need another MRI study next week. CV: Dyslipidemia Severe sepsis- resolved. septic shock- resolved. off vasopressors d/c Lasix IV. Currently on atorvastatin 40 mg p.o. daily. Hospital substitution for rosuvastatin 20 mg p.o. daily s/p hydrocortisone stress dose steroids (therapy completed 01/15) Resp: Acute hypoxic hypercarbic respiratory failure- resolving Nebs Wean FiO2 for goal SPO2 greater than 90% OOB to stretcher chair daily PT/OT/Speech therapy GI: Neurogenic ileus- resolving. Acute protein calorie malnutrition- moderate tube feeds. senna/colace, lactulose, miralax, dulcolax supp daily. prn mag citrate if no BM daily. Likely ileus is multifactorial including severe sepsis and postoperative pain, likely compounded by myelopathy and neurogenic component to his ileus Famotidine for GI prophylaxis trend prealbumin weekly : BPH Maintain Peck catheter per urology. have discussed with urology: cannot I/O straight cath for now. recommended changing peck catheter Monthly. Currently on tamsulosin 0.4 mg p.o. daily Recent prostate biopsy. Endo: Sliding scale insulin Accu-Cheks to maintain euglycemia/low regimen Renal: Acute kidney injury- resolved Avoid nephrotoxic drugs Monitor urine output Accurate I's and O's Heme: Thrombocytopenia likely secondary to sepsis- resolved. Anemia secondary to acute blood loss Haptoglobin high. LDH normal. Peripheral smear no signs of schistocytes total bilirubin normal. Status post 2 pack platelets 01/04. Followed by hematology no indication for transfusion ID: Severe Sepsis present on admission (leucocytosis, Tachycardia, source: bacteremia and epidural abscess. E.coli bacteremia high grade E.Coli UTI recent prostate biopsy. PNA aspiration/HCAP Epidural abscess, thoracic and lumbar, C/S E coli C, T, L spine osteomyelitis ID following. Ceftazidime IV for 10 weeks from 01/08/2018. Weekly CBC with diff, CMP, CRP while on IV antibiotics. Repeat imaging may be needed in 4-6 weeks to assess progress. FEN Hypokalemia- resolved Hypernatremia Hypokalemia resolved. Na is 149. Probably 1-2 L of free water deficit. Na 149 --> 151. Will start patient on D5W @ 100cc/hour. Check Na level this afternoon. Discussed with patient's life partner (as stated in the EMR) regarding PEG tube placement as it might be safer than tube feed by NG tube. Life partner agrees with PEG tube placement. Patient also agrees with this plan. Interventional radiology consulted for PEG tube placement. Access - 01/15 PICC line Peck: keep per urology. change monthly. Full code. Famotidine, SubQ Heparin. Problem Qualifiers (1) Lumbar canal stenosis: Qualified Codes: M48.061 - Spinal stenosis, lumbar region without neurogenic claudication (2) UTI (urinary tract infection): Qualified Codes: N30.00 - Acute cystitis without hematuria (3) Osteoporosis: Qualified Codes: M81.0 - Age-related osteoporosis without current pathological fracture (4) Altered mental status: Qualified Codes: R40.4 - Transient alteration of awareness Dwayne Russell DO Jan 22, 2018 10:52 am
--- NOTE | 2018-01-22 11:06 | HHI.NSPN ---
(Tigre Estrada) History Chief Complaint: Doesn't feel good. (Tigre Estrada) Interval History 01/03: 67-year-old male who underwent a prostate biopsy one week ago, on . He states that on the evening of 12/29/17 on into the morning of 12/30/17, he developed fever and chills, low back pain, and lower extremity numbness and paresthesias and muscle spasm. He was seen by his primary care physician and was given medication including muscle relaxant. The symptoms persisted and he returned to his primary care physician on Wednesday , 01/01/18 and was given additional medications including Cipro. He awoke on 01/02/2018 with increased lower extremity weakness and numbness, and fell in the shower in the morning, after which he was unable to ambulate or lift his legs off the bed, and continued to experience pain in the lower back. He went to the emergency room at [facility], and was given additional medication injections. He states that he could not lift his legs off the bed or ambulate in the emergency room, and was taken out to his car and lifted into the car and sent home again. He fell in the driveway again trying to get back into the house. He apparently did not urinate for the entire day. He has no complaint of pain which is numbness paresthesias in the upper extremities. No numbness or paresthesias over the chest or abdomen or pelvic region. The patient was emergently taken to the operating room for a bilateral L1-2, L2- 3, L3 4, L4 5 decompressive semi-laminectomy, medial facetectomy for spinal canal decompression. Post-operatively the patient remained intubated and was admitted to [facility] for further care and monitoring. 01/04: When seen this afternoon the patient has been extubated. He is awake and alert and readily interacts. He does report pain to the neck and the lower back. He has no numbness, tingling or weakness to the upper extremities but does say he will have pain shooting down them if he moves wrong. He denies any pain to the lower extremities but does have numbness to both feet and about the only movement he is able to do is move his knees medially and laterally. Upon examination the patient's sensorimotor exam is improved from pre-operatively 01/05: The patient desaturated this morning and a Halicat was initiated. From the EMR Nursing reported that the patient was lethargic and difficult to arouse. His sat was in the 80s and he did have a fever of 102F. He was therefore transferred back to [facility]. A chest x-ray demonstrated a left lower lobe consolidation. His blood, urine and lumbar spine wound cultures have all come back positive for Escherichia coli. When seen this afternoon the patient was awake, alert and readily interacted. He was visiting with his significant other. His upper extremity examination was variable with some improvement and some decline. His sensation and motor strength to the lower extremities had declined. The surgical incision looked good upon examination and the GUIDO drain was removed. 01/06: This afternoon the patient is on a nonrebreather mask when seen, he is tachypneic and laboured. He says he has some low back pain, especially at night. He denies any neck pain or headache. He has worsening of his muscle strength to the upper extremities and it remains poor to the lower. 01/07: The patient was urgently intubated yesterday evening for worsening respiratory status and remains so this morning. He underwent emergent surgery for decompression of the cervical and thoracic spines. Post-operatively he returned to [facility]. He is sedated with propofol. He has vasopressin and norepinephrine infusing for blood pressure support. He is obtunded but sedated and there is no response to any stimulation. 01/08: Patient sedated with Diprivan and fentanyl drips. He was biting the tube and was also recently placed on Versed. He is not opening eyes or following commands. He remains sedated for vent synchrony. 01/09: Pt sedated with Diprivan and Fentanyl drips. He nods his head slightly to questions. Intubated a/c. RN reports all bandages are dry with only mild post op staining. 01/10: When seen the patient is lethargic. He is sedated with propofol and midazolam. He continues to be intubated and mechanically ventilated. His significant other stated that the patient was awake a few minutes ago. When he called the patient's name he opened both eyes. He did blink to command. There was no motor response to any stimulation. 01/11: This morning the patient is drowsy when seen. He continues to be sedated with propofol and midazolam. He is still intubated and mechanically ventilated. His eyes open to voice. He does not move the extremities to any stimulation even though his sedation is held. 01/12: The patient is drowsy. He is on ketamine for sedation and pain control. He remains intubated and mechanically ventilated. He opened his eyes to voice. He indicated he had no pain. He weakly gripped with the right hand to command and gave a thumbs up. His biodiesel product manager was strong when local noxious stimulation was applied. He had no response with the other extremities to local noxious stimulation. 01/14: When seen the patient is awake. He has been trached and mechanically ventilated. Nursing does say that a CPAP trial may be done today. He nods appropriately. He denies any pain to the neck or back. Upon examination he is able to give a weak hand grasp bilaterally and has muscle contractions to the upper extremities when asked to lift them off the bed. He has no response to noxious stimulation of the lower extremities. He has numbness to the left lower but says the right lower and both upper extremities feel normal. 01/15: doing well, family at beside, remains very weak in extremities 01/16: sitting up in stretcher chair, alert, nursing reports increased sensation in lower extremities, no significant change to motor function. 01/17: The patient is awake and alert in bed watching TV and visiting with his significant other. He is trached and on a T-piece. He does try to verbalise some and nods appropriately. He does have pain to the extremities as well as some decreased sensation. He is moving the upper extremities spontaneously and has trace contraction of the lower extremities. 01/18: This morning the patient is in the cardiac/stretcher chair watching TV with his significant other. He is awake and alert. He says he feels better today and his pain is better also. He is able to move the upper extremities spontaneously but has no movement to the lower extremities. 01/19: When seen the patient is awake and alert in bed visiting with his significant other. Infectious Disease is at the bedside. He indicates he is doing better today than yesterday and denies any pain to the neck, back or extremities. He is moving the upper extremities purposefully but is not able to move the left except for a trace muscle contraction to command. 01/20: The patient is awake watching TV and visiting with his significant other. He indicates he is doing "so-so" this morning. He is able to move both upper extremities to command and spontaneously. There is a slight muscle contraction to the left lower to command but nothing to the right. 01/21: This morning the patient is awake and watching TV visiting with his significant other. He indicates he is doing "so-so" still, but does nod yes when asked if better than yesterday. He is spontaneously moving his upper extremities and has an improving motor exam. He has no response to lower extremities to noxious stimulation but he does have slight muscle contraction to the left lower extremity to command. Sensation is intact to the uppers and is variable to the lowers. 01/22: The patient is being transfused when seen this morning and he is to receive a total of two units of PRBC for a haemoglobin of 6.2. He is pale & diaphoretic. There is no change in his motor exam but his sensory exam does differ from yesterday's. (Tigre Estrada) Exam Results 01/20/18 01/20/18 01/21/18 01/21/18 01/22/18 01/22/18 06:00 18:00 06:00 18:00 06:00 18:00 Intake Total 1106 ml 2337 ml 778 ml 1107 ml Output Total 2350 ml 3100 ml 1750 ml 825 ml Balance -1244 ml -763 ml -972 ml 282 ml Intake Oral 0 ml IV Total 300 ml 100 ml Tube Feeding 706 ml 1237 ml 378 ml 607 ml Tube Irrigant 400 ml 800 ml 400 ml Other 400 ml Output Urine Total 2000 ml 2900 ml 1650 ml 825 ml Stool Total 350 ml 200 ml 100 ml # Bowel Movements 3 Vital Signs Date Time Temp Pulse Resp B/P (MAP) Pulse Ox O2 Delivery O2 Flow Rate FiO2 01/22/18 10:11 99.2 93 19 119/62 96 01/22/18 08:19 98.9 93 14 103/62 98 01/22/18 08:03 99.1 90 24 107/59 99 01/22/18 08:00 93 01/22/18 08:00 99.1 92 18 104/63 (77) 98 01/22/18 07:00 99 T-Piece 28 01/22/18 06:00 92 01/22/18 04:00 94 01/22/18 04:00 99.0 94 13 89/54 (66) 95 01/22/18 02:00 96 01/22/18 00:00 100.0 96 18 95/55 (68) 97 01/22/18 00:00 96 01/21/18 22:00 93 01/21/18 20:10 96 T-piece 21 01/21/18 20:00 100.0 98 12 105/57 (73) 95 01/21/18 20:00 98 01/21/18 19:00 96 T-Piece 28 01/21/18 18:00 92 01/21/18 16:00 94 01/21/18 16:00 98.6 94 13 117/71 (86) 95 01/21/18 14:00 94 01/21/18 12:00 92 01/21/18 12:00 99.2 92 19 110/60 (77) 98 01/21/18 10:00 94 01/21/18 08:00 99.0 90 10 100/55 (70) 94 01/21/18 08:00 90 01/21/18 07:57 97 T-piece 21 01/21/18 07:00 90 T-Piece 28 01/21/18 06:00 92 01/21/18 05:00 99.0 94 17 92/55 (67) 94 01/21/18 04:00 94 01/21/18 02:00 93 01/21/18 00:00 99.1 90 22 101/56 (71) 14 01/21/18 00:00 90 01/20/18 22:00 90 01/20/18 20:41 99 T-piece 21 01/20/18 20:00 101 01/20/18 20:00 101.1 100 18 92/53 (66) 96 01/20/18 19:00 95 T-Piece 28 01/20/18 18:00 90 01/20/18 16:06 96 T-piece 21 01/20/18 16:00 84 01/20/18 16:00 98.0 86 22 105/60 (75) 95 01/20/18 14:00 90 01/20/18 12:00 84 01/20/18 12:00 98.7 104 20 103/56 (72) 95 01/20/18 10:00 90 01/20/18 09:07 20 01/20/18 08:00 98.7 96 18 104/63 (77) 95 01/20/18 08:00 84 01/20/18 07:00 99 T-Piece 28 01/20/18 06:00 90 01/20/18 04:00 98.7 84 22 108/56 (73) 95 01/20/18 04:00 84 01/20/18 02:00 92 01/20/18 00:00 86 01/20/18 00:00 98.7 86 19 125/58 (80) 95 01/19/18 22:00 87 01/19/18 20:00 99.1 105 24 110/56 (74) 97 01/19/18 20:00 105 01/19/18 19:00 99 T-piece 28 01/19/18 19:00 99 T-Piece 28 01/19/18 18:00 99 01/19/18 16:00 101 01/19/18 16:00 98.0 73 20 101/57 (72) 97 01/19/18 14:22 18 01/19/18 14:00 99 01/19/18 12:00 101 (Tigre Estrada) Physical Examination GENERAL: Awake & alert in bed watching TV. Trached & on T-piece. He is pale & diaphoretic. He is receiving a transfusion of PRBC. HEENT: Normocephalic, atraumatic. NGT. NECK: [place] J cervical collar in place. No JVD. Trached & trachea appears midline. MUSCULOSKELETAL: Moving BUE spontaneously & to command, slight muscle contraction to LLE to command. No evident clubbing or deformity. NEUROLOGICAL: Awake & alert. Spontaneous eye opening. Nonverbal, trached, mouths some words. Nodded head appropriately to questions. Sensation intact to light touch to BUE & RLE. Decreased to LLE and becomes absent distally. [place] nail bed pressure to right foot but not left. Moving BUE spontaneously & purposefully. Motor exam stable. Slight muscle contraction to left thigh to command. No movement to noxious stimulation BLE. (Sean,Tigre E. HEALTH PLAN SPECIALIST) Lab, Micro, Other Results Laboratory Tests Test 01/19/18 13:08 01/21/18 10:00 01/22/18 05:03 Prealbumin 17 MG/DL Blood Urea Nitrogen 54 MG/DL 63 MG/DL Creatinine 1.72 MG/DL 2.04 MG/DL Random Glucose 147 MG/DL 149 MG/DL Calcium Level 9.2 MG/DL 9.0 MG/DL Sodium Level 150 MEQ/L 151 MEQ/L Potassium Level 3.2 MEQ/L 3.7 MEQ/L Chloride Level 107 MEQ/L 108 MEQ/L Carbon Dioxide Level 36.3 MEQ/L 35.3 MEQ/L Anion Gap 7 MEQ/L 8 MEQ/L Estimat Glomerular Filtration Rate 40 ML/MIN 33 ML/MIN White Blood Count 9.5 TH/MM3 Red Blood Count 2.03 MIL/MM3 Hemoglobin 6.2 GM/DL Hematocrit 18.4 % Mean Corpuscular Volume 91.1 FL Mean Corpuscular Hemoglobin 30.7 PG Mean Corpuscular Hemoglobin Concent 33.8 % Red Cell Distribution Width 14.9 % Platelet Count 234 TH/MM3 Mean Platelet Volume 8.5 FL Neutrophils (%) (Auto) 81.1 % Lymphocytes (%) (Auto) 9.7 % Monocytes (%) (Auto) 6.0 % Eosinophils (%) (Auto) 2.8 % Basophils (%) (Auto) 0.4 % Neutrophils # (Auto) 7.7 TH/MM3 Lymphocytes # (Auto) 0.9 TH/MM3 Monocytes # (Auto) 0.6 TH/MM3 Eosinophils # (Auto) 0.3 TH/MM3 Basophils # (Auto) 0.0 TH/MM3 CBC Comment DIFF FINAL Differential Comment Lactic Acid Level 1.9 mmol/L (Tigre Estrada) Medical Decision Making Impression and Plan Impression: 1. Severe progressive paraplegia. Although he has significant spinal stenosis in the cervical thoracic and lumbar region, his overall presentation and exam suggests that the lumbar stenosis is the immediate cause of his severe lower extremity deficit, positive cauda equina syndrome. 2. Possible sepsis 3. Acute kidney disease 4. 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 Severe lumbar canal stenosis 2. Cauda equina syndrome 3. Cervical degenerative disease with severe stenosis and myelopathy 4. Thoracic disc disease with severe canal stenosis and myelopathy 5. Sepsis 6. Thrombocytopenia 7. Acute kidney disease Postoperative Diagnosis : (1) Cervical disc disease with myelopathy (2) Thoracic disc disease with myelopathy Postoperative Diagnosis : (1) Spinal epidural abscess (2) Thoracic disc disease with myelopathy (3) Lumbar canal stenosis 4. Postoperative lumbar epidural hematoma Patient is doing better today. He is awake & alert. Trached & on T-piece. Stable motor exam BUE, slight LLE muscle contraction to command but no movement w/stimulation, no right lower movement to stimulation. Lower extremities w/ variable sensation. Past 24 hrs T max 100.0. SBP down to 89 mm Hg early this morning. GUIDO #1 (lower back) & #2 (cervical) d/c'd f2. GUIDO drains #3 (lumbar) & # 4 (lumbar) d/c'd . Reviewed labs for today. Drop of haemoglobin to 6.2. Sodium 151. Renal insufficiency. Wound culture () positive for Escherichia coli, final . POD #19 () s/p: 1. Bilateral L1-2, L2-3, L3 4, L4 5 decompressive semi-laminectomy, medial facetectomy for spinal canal decompression. POD #15 (-) s/p: Procedure number 1. C2-C6 decompressive laminectomy Procedure number 2,Via separate incision: T2-T6 decompressive laminectomy POD #14 (-) s/p: Part 2 of planned two-part procedure. Procedure #1: 1. [id number] decompressive semi-laminectomy, evacuation thoracic epidural abscess 2. Evacuation thoracic epidural abscess. Procedure #2: Via separate incision. 1. Revision L2-3, L3 4, L4 5 decompressive semi-laminectomy 2. Evacuation lumbar epidural abscess 3. Evacuation of postoperative lumbar epidural hematoma Plan: Discussed plan of care w/patient & significant other. Primary & critical care management per Neonatal Critical Care Nurse. Neuro checks. Turn patient q2h but keep the patient off of his back. Physical & Occupational Therapy eval & tx. Mechanical DVT prophylaxis. Okay for pharmacologic DVT prophylaxis. Plan to do MRI cervical, thoracic & lumbar spines on Wednesday. (Tigre Estrada) Attending Statement The exam, history, and the medical decision-making described in the above note were completed with the assistance of the mid-level provider. I reviewed and agree with the findings presented. I attest that I had a [id number] encounter with the patient on the same day, and personally performed and documented my assessment and findings in the medical record. Patient a little less alert on examination 01/22/2018. He is receiving blood transfusion. No change in extremity sensorimotor exam. Follow-up MRI next week. (Jerry Chakraborty MD) Tigre Estrada Jan 22, 2018 11:06 Jerry Chakraborty MD Jan 22, 2018 19:52
[2018-01-22] MEDS: DEXTROSE 5% IN WATE 1000ML INJ 1,000 ML IV SCH ×2 (11:20→21:48)
[2018-01-22] MEDS: TAMSULOSIN HCL 0.4 MG CAP PO SCH (20:26)
[2018-01-22] MEDS: oxyCODONE HCL ORAL CONC 5 MG/0.25 ML SYRINGE PO PRN (20:26)
[2018-01-22] MEDS: MORPHINE SULFATE 2 MG/ML SYRINGE IV PUSH PRN (23:30)
[2018-01-23] VITALS (14 sets, daily range): BP systolic 89–117; BP diastolic 52–60; PULSE 68–96; RESP 17–24; TEMP 99.1–102.4; O2SAT 95–97
[2018-01-23] MEDS: MORPHINE SULFATE 2 MG/ML SYRINGE IV PUSH PRN ×2 (04:51→11:05)
[2018-01-23] MEDS: ALBUMIN 25% INJ 100 ML IV SCH ×3 (04:51→20:30)
[2018-01-23] MEDS: cefTRIAXone INJ 2,000 MG in SODIUM CHLORIDE 0.9% INJ 100 ML IV SCH ×2 (05:40→17:25)
[2018-01-23] MEDS: HEPARIN SODIUM - SQ 10,000 UNITS/ML VIAL SQ SCH ×3 (05:41→20:56)
[2018-01-23] MEDS: ARTIFICIAL TEARS OPTH SOLN 15 ML BTL EACH EYE SCH ×3 (05:41→20:30)
[2018-01-23] MEDS: POTASSIUM PHOSPHATE/SODIUM PHOSPHATE 250 MG TAB PO SCH ×3 (05:41→17:25)
[2018-01-23] MEDS: FREE WATER G-TUBE SCH ×4 (05:41→17:17)
[2018-01-23] MEDS: DEXTROSE 5% IN WATE 1000ML INJ 1,000 ML IV SCH ×2 (07:44→17:00)
[2018-01-23 08:15] LABS: HEMATOCRIT 22.8 % (39.0-51.0); HEMOGLOBIN 7.7 GM/DL (13.0-17.0); MEAN CELL VOLUME 89.2 FL (80.0-100.0); MEAN CORPUSCULAR HEMOGLOBIN 30.1 PG (27.0-34.0); MEAN CORPUSCULAR HGB CONC 33.8 % (32.0-36.0); MEAN PLATELET VOLUME 8.3 FL (7.0-11.0); PLATELET COUNT 241 TH/MM3 (150-450); RED BLOOD COUNT 2.56 MIL/MM3 (4.50-5.90); RED CELL DISTRIBUTION WIDTH 15.6 % (11.6-17.2); WHITE BLOOD COUNT 11.2 TH/MM3 (4.0-11.0)
[2018-01-23] MEDS: GABAPENTIN 250 MG/5 ML UDC NG SCH ×3 (08:29→17:25)
[2018-01-23 08:30] LABS: BICARBONATE 33.7 MEQ/L (21.0-32.0); CALCIUM 9.3 MG/DL (8.5-10.1); CREATININE 1.99 MG/DL (0.60-1.30)
[2018-01-23] MEDS: DOCUSATE SODIUM 50 MG/SENNA 8.6 MG TAB PO SCH ×2 (08:30→20:30)
[2018-01-23] MEDS: ATORVASTATIN 40 MG TAB PO SCH (08:30)
[2018-01-23] MEDS: oxyCODONE HCL ORAL CONC 5 MG/0.25 ML SYRINGE PO PRN (08:30)
[2018-01-23] MEDS: POLYETHYLENE GLYCOL 17 GM PKG PO SCH ×2 (08:30→20:30)
[2018-01-23] MEDS: FAMOTIDINE 20 MG TAB PO SCH ×2 (08:30→20:30)
[2018-01-23] MEDS: BISACODYL 10 MG SUPP RECTAL SCH (08:30)
[2018-01-23] MEDS: METHOCARBAMOL 500 MG TAB PO SCH ×4 (08:30→20:30)
[2018-01-23] MEDS: LACTULOSE SYRUP 20 GM/30 ML CUP PO SCH ×2 (08:31→20:56)
[2018-01-23] MEDS: SODIUM CHLORIDE 0.9% FLUSH 10 ML FLUSH IV FLUSH SCH ×2 (08:31→20:30)
--- NOTE | 2018-01-23 12:29 | HHI.NSPN ---
(Maurilio Estradafozia ZAMBRANO) History Chief Complaint: Feels weak (Maurilio Estradafozia ZAMBRANO) Interval History 01/03: 67-year-old male who underwent a prostate biopsy one week ago, on . He states that on the evening of 12/29/17 on into the morning of 12/30/17, he developed fever and chills, low back pain, and lower extremity numbness and paresthesias and muscle spasm. He was seen by his primary care physician and was given medication including muscle relaxant. The symptoms persisted and he returned to his primary care physician on Wednesday , 01/01/18 and was given additional medications including Cipro. He awoke on 01/02/2018 with increased lower extremity weakness and numbness, and fell in the shower in the morning, after which he was unable to ambulate or lift his legs off the bed, and continued to experience pain in the lower back. He went to the emergency room at [facility], and was given additional medication injections. He states that he could not lift his legs off the bed or ambulate in the emergency room, and was taken out to his car and lifted into the car and sent home again. He fell in the driveway again trying to get back into the house. He apparently did not urinate for the entire day. He has no complaint of pain which is numbness paresthesias in the upper extremities. No numbness or paresthesias over the chest or abdomen or pelvic region. The patient was emergently taken to the operating room for a bilateral L1-2, L2- 3, L3 4, L4 5 decompressive semi-laminectomy, medial facetectomy for spinal canal decompression. Post-operatively the patient remained intubated and was admitted to [facility] for further care and monitoring. 01/04: When seen this afternoon the patient has been extubated. He is awake and alert and readily interacts. He does report pain to the neck and the lower back. He has no numbness, tingling or weakness to the upper extremities but does say he will have pain shooting down them if he moves wrong. He denies any pain to the lower extremities but does have numbness to both feet and about the only movement he is able to do is move his knees medially and laterally. Upon examination the patient's sensorimotor exam is improved from pre-operatively 01/05: The patient desaturated this morning and a Halicat was initiated. From the EMR Nursing reported that the patient was lethargic and difficult to arouse. His sat was in the 80s and he did have a fever of 102F. He was therefore transferred back to [facility]. A chest x-ray demonstrated a left lower lobe consolidation. His blood, urine and lumbar spine wound cultures have all come back positive for Escherichia coli. When seen this afternoon the patient was awake, alert and readily interacted. He was visiting with his significant other. His upper extremity examination was variable with some improvement and some decline. His sensation and motor strength to the lower extremities had declined. The surgical incision looked good upon examination and the GUIDO drain was removed. 01/06: This afternoon the patient is on a nonrebreather mask when seen, he is tachypneic and laboured. He says he has some low back pain, especially at night. He denies any neck pain or headache. He has worsening of his muscle strength to the upper extremities and it remains poor to the lower. 01/07: The patient was urgently intubated yesterday evening for worsening respiratory status and remains so this morning. He underwent emergent surgery for decompression of the cervical and thoracic spines. Post-operatively he returned to [facility]. He is sedated with propofol. He has vasopressin and norepinephrine infusing for blood pressure support. He is obtunded but sedated and there is no response to any stimulation. 01/08: Patient sedated with Diprivan and fentanyl drips. He was biting the tube and was also recently placed on Versed. He is not opening eyes or following commands. He remains sedated for vent synchrony. 01/09: Pt sedated with Diprivan and Fentanyl drips. He nods his head slightly to questions. Intubated a/c. RN reports all bandages are dry with only mild post op staining. 01/10: When seen the patient is lethargic. He is sedated with propofol and midazolam. He continues to be intubated and mechanically ventilated. His significant other stated that the patient was awake a few minutes ago. When he called the patient's name he opened both eyes. He did blink to command. There was no motor response to any stimulation. 01/11: This morning the patient is drowsy when seen. He continues to be sedated with propofol and midazolam. He is still intubated and mechanically ventilated. His eyes open to voice. He does not move the extremities to any stimulation even though his sedation is held. 01/12: The patient is drowsy. He is on ketamine for sedation and pain control. He remains intubated and mechanically ventilated. He opened his eyes to voice. He indicated he had no pain. He weakly gripped with the right hand to command and gave a thumbs up. His consumer affairs director was strong when local noxious stimulation was applied. He had no response with the other extremities to local noxious stimulation. 01/14: When seen the patient is awake. He has been trached and mechanically ventilated. Nursing does say that a CPAP trial may be done today. He nods appropriately. He denies any pain to the neck or back. Upon examination he is able to give a weak hand grasp bilaterally and has muscle contractions to the upper extremities when asked to lift them off the bed. He has no response to noxious stimulation of the lower extremities. He has numbness to the left lower but says the right lower and both upper extremities feel normal. 01/15: doing well, family at beside, remains very weak in extremities 01/16: sitting up in stretcher chair, alert, nursing reports increased sensation in lower extremities, no significant change to motor function. 01/17: The patient is awake and alert in bed watching TV and visiting with his significant other. He is trached and on a T-piece. He does try to verbalise some and nods appropriately. He does have pain to the extremities as well as some decreased sensation. He is moving the upper extremities spontaneously and has trace contraction of the lower extremities. 01/18: This morning the patient is in the cardiac/stretcher chair watching TV with his significant other. He is awake and alert. He says he feels better today and his pain is better also. He is able to move the upper extremities spontaneously but has no movement to the lower extremities. 01/19: When seen the patient is awake and alert in bed visiting with his significant other. Infectious Disease is at the bedside. He indicates he is doing better today than yesterday and denies any pain to the neck, back or extremities. He is moving the upper extremities purposefully but is not able to move the left except for a trace muscle contraction to command. 01/20: The patient is awake watching TV and visiting with his significant other. He indicates he is doing "so-so" this morning. He is able to move both upper extremities to command and spontaneously. There is a slight muscle contraction to the left lower to command but nothing to the right. 01/21: This morning the patient is awake and watching TV visiting with his significant other. He indicates he is doing "so-so" still, but does nod yes when asked if better than yesterday. He is spontaneously moving his upper extremities and has an improving motor exam. He has no response to lower extremities to noxious stimulation but he does have slight muscle contraction to the left lower extremity to command. Sensation is intact to the uppers and is variable to the lowers. 01/22: The patient is being transfused when seen this morning and he is to receive a total of two units of PRBC for a haemoglobin of 6.2. He is pale & diaphoretic. There is no change in his motor exam but his sensory exam does differ from yesterday's. 01/23: When seen the patient is awake and alert watching TV and visiting with his significant other. He indicates that he is doing "so-so" although better than yesterday. He does say he feels weak in general. His motor exam is stable but his sensory exam is different from yesterday. (Tigre Estrada) Exam Results 01/21/18 01/21/18 01/22/18 01/22/18 01/23/18 01/23/18 06: 18: 06: 18: 06: 18:00 Intake Total 2337 ml 878 ml 1307 ml 2170 ml 1065 ml 1000 ml Output Total 3100 ml 1750 ml 825 ml 1050 ml 1000 ml Balance -763 ml -872 ml 482 ml 1120 ml 65 ml 1000 ml Intake Oral 0 ml 0 ml IV Total 300 ml 100 ml 300 ml 245 ml 1000 ml Tube Feeding 1237 ml 378 ml 607 ml 675 ml 665 ml Packed Cells 800 ml Tube Irrigant 800 ml 400 ml 450 ml 400 ml Other 400 ml Output Urine Total 2900 ml 1650 ml 825 ml 1050 ml 1000 ml Stool Total 200 ml 100 ml # Bowel Movements 3 1 3 Vital Signs Date Time Temp Pulse Resp B/P (MAP) Pulse Ox O2 Delivery O2 Flow Rate FiO2 01/23/18 11:10 13 01/23/18 10:17 97 T-piece 21 01/23/18 10:00 95 01/23/18 09:30 27 01/23/18 08:00 99.6 95 20 117/56 (76) 96 01/23/18 08:00 96 01/23/18 07:00 98 T-Piece 01/23/18 06:00 92 01/23/18 04:00 99.1 80 20 89/54 (66) 95 01/23/18 04:00 80 01/23/18 02:00 68 01/23/18 00:00 100.0 93 17 111/60 (77) 95 01/23/18 00:00 93 01/22/18 22:00 96 01/22/18 20:00 98 01/22/18 20:00 97.8 98 18 110/59 (76) 98 01/22/18 19:00 98 T-Piece 01/22/18 18:00 96 01/22/18 16:00 99.2 93 11 106/57 (73) 95 01/22/18 16:00 98 01/22/18 14:00 93 01/22/18 12:30 98.8 92 16 119/69 96 01/22/18 12:00 98.8 92 11 119/70 (86) 95 01/22/18 12:00 91 01/22/18 10:11 99.2 93 19 119/62 96 01/22/18 10:00 98 T-piece 01/22/18 10:00 93 01/22/18 08:19 98.9 93 14 103/62 98 01/22/18 08:03 99.1 90 24 107/59 99 01/22/18 08:00 93 01/22/18 08:00 99.1 92 18 104/63 (77) 98 01/22/18 07:00 99 T-Piece 01/22/18 06:00 92 01/22/18 04:00 94 01/22/18 04:00 99.0 94 13 89/54 (66) 95 01/22/18 02:00 96 01/22/18 00:00 100.0 96 18 95/55 (68) 97 01/22/18 00:00 96 01/21/18 22:00 93 01/21/18 20:10 96 T-piece 21 01/21/18 20:00 100.0 98 12 105/57 (73) 95 01/21/18 20:00 98 01/21/18 19:00 96 T-Piece 28 01/21/18 18:00 92 01/21/18 16:00 94 01/21/18 16:00 98.6 94 13 117/71 (86) 95 01/21/18 14:00 94 01/21/18 12:00 92 01/21/18 12:00 99.2 92 19 110/60 (77) 98 01/21/18 10:00 94 01/21/18 08:00 99.0 90 10 100/55 (70) 94 01/21/18 08:00 90 01/21/18 07:57 97 T-piece 21 01/21/18 07:00 90 T-Piece 28 01/21/18 06:00 92 01/21/18 05:00 99.0 94 17 92/55 (67) 94 01/21/18 04:00 94 01/21/18 02:00 93 01/21/18 00:00 99.1 90 22 101/56 (71) 14 01/21/18 00:00 90 01/20/18 22:00 90 01/20/18 20:41 99 T-piece 21 01/20/18 20:00 101 01/20/18 20:00 101.1 100 18 92/53 (66) 96 01/20/18 19:00 95 T-Piece 28 01/20/18 18:00 90 01/20/18 16:06 96 T-piece 21 01/20/18 16:00 84 01/20/18 16:00 98.0 86 22 105/60 (75) 95 01/20/18 14:00 90 (Tigre Estrada) Physical Examination GENERAL: Awake & alert in bed watching TV w/his significant other. Trached & on T-piece. He is pale but dry. He is not in any distress. HEENT: Normocephalic, atraumatic. NGT. NECK: [place] J cervical collar in place. No JVD. Trached & trachea appears midline. MUSCULOSKELETAL: Moving BUE spontaneously & to command, slight muscle contraction to LLE to command. No evident clubbing or deformity. NEUROLOGICAL: Awake & alert. Spontaneous eye opening. Nonverbal, trached, mouths some words. Nodded head appropriately to questions. Sensation intact to light touch to BUE. Decreased to LLE and becomes absent distally and decreased all the way down the RLE Moving BUE spontaneously & purposefully. Motor exam stable. Slight muscle contraction to left thigh to command. (Tigre Estrada) Lab, Micro, Other Results Laboratory Tests Test 01/21/18 10:00 01/22/18 05:03 01/22/18 17:16 01/23/18 07:50 Blood Urea Nitrogen 54 MG/DL 63 MG/DL 64 MG/DL Creatinine 1.72 MG/DL 2.04 MG/DL 1.99 MG/DL Random Glucose 147 MG/DL 149 MG/DL 151 MG/DL Calcium Level 9.2 MG/DL 9.0 MG/DL 9.3 MG/DL Sodium Level 150 MEQ/L 151 MEQ/L 150 MEQ/L 148 MEQ/L Potassium Level 3.2 MEQ/L 3.7 MEQ/L 3.2 MEQ/L Chloride Level 107 MEQ/L 108 MEQ/L 106 MEQ/L Carbon Dioxide Level 36.3 MEQ/L 35.3 MEQ/L 33.7 MEQ/L Anion Gap 7 MEQ/L 8 MEQ/L 8 MEQ/L Estimat Glomerular Filtration Rate 40 ML/MIN 33 ML/MIN 34 ML/MIN White Blood Count 9.5 TH/MM3 11.2 TH/MM3 Red Blood Count 2.03 MIL/MM3 2.56 MIL/MM3 Hemoglobin 6.2 GM/DL 7.7 GM/DL Hematocrit 18.4 % 22.8 % Mean Corpuscular Volume 91.1 FL 89.2 FL Mean Corpuscular Hemoglobin 30.7 PG 30.1 PG Mean Corpuscular Hemoglobin Concent 33.8 % 33.8 % Red Cell Distribution Width 14.9 % 15.6 % Platelet Count 234 TH/MM3 241 TH/MM3 Mean Platelet Volume 8.5 FL 8.3 FL Neutrophils (%) (Auto) 81.1 % Lymphocytes (%) (Auto) 9.7 % Monocytes (%) (Auto) 6.0 % Eosinophils (%) (Auto) 2.8 % Basophils (%) (Auto) 0.4 % Neutrophils # (Auto) 7.7 TH/MM3 Lymphocytes # (Auto) 0.9 TH/MM3 Monocytes # (Auto) 0.6 TH/MM3 Eosinophils # (Auto) 0.3 TH/MM3 Basophils # (Auto) 0.0 TH/MM3 CBC Comment DIFF FINAL Differential Comment Lactic Acid Level 1.9 mmol/L (Tigre Estrada) Medical Decision Making Impression and Plan Impression: 1. Severe progressive paraplegia. Although he has significant spinal stenosis in the cervical thoracic and lumbar region, his overall presentation and exam suggests that the lumbar stenosis is the immediate cause of his severe lower extremity deficit, positive cauda equina syndrome. 2. Possible sepsis 3. Acute kidney disease 4. 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 Severe lumbar canal stenosis 2. Cauda equina syndrome 3. Cervical degenerative disease with severe stenosis and myelopathy 4. Thoracic disc disease with severe canal stenosis and myelopathy 5. Sepsis 6. Thrombocytopenia 7. Acute kidney disease Postoperative Diagnosis : (1) Cervical disc disease with myelopathy (2) Thoracic disc disease with myelopathy Postoperative Diagnosis : (1) Spinal epidural abscess (2) Thoracic disc disease with myelopathy (3) Lumbar canal stenosis 4. Postoperative lumbar epidural hematoma Patient is doing slightly better today. He is awake & alert. Trached & on T- piece. Stable motor exam BUE, slight LLE muscle contraction to command. Lower extremities w/decreased to absent sensation. Past 24 hrs T max 100.0. GUIDO #1 (lower back) & #2 (cervical) d/c'd f2. GUIDO drains #3 (lumbar) & # 4 (lumbar) d/c'd . Reviewed labs for today. Leukocytosis. Increase in haemoglobin to 7.7. Sodium 148. Hypokalemia. Renal insufficiency essentially unchanged. Wound culture () positive for Escherichia coli, final . POD #20 () s/p: 1. Bilateral L1-2, L2-3, L3 4, L4 5 decompressive semi-laminectomy, medial facetectomy for spinal canal decompression. POD #16 (-) s/p: Procedure number 1. C2-C6 decompressive laminectomy Procedure number 2,Via separate incision: T2-T6 decompressive laminectomy POD #15 (-) s/p: Part 2 of planned two-part procedure. Procedure #1: 1. [id number] decompressive semi-laminectomy, evacuation thoracic epidural abscess 2. Evacuation thoracic epidural abscess. Procedure #2: Via separate incision. 1. Revision L2-3, L3 4, L4 5 decompressive semi-laminectomy 2. Evacuation lumbar epidural abscess 3. Evacuation of postoperative lumbar epidural hematoma Plan: Discussed plan of care w/patient & significant other. Primary & critical care management per Environmental Field Team Member. Neuro checks. Turn patient q2h but keep the patient off of his back. Physical & Occupational Therapy eval & tx. Mechanical DVT prophylaxis. Okay for pharmacologic DVT prophylaxis. Plan to do MRI cervical, thoracic & lumbar spines on Wednesday. (Tigre Estrada) Attending Statement The exam, history, and the medical decision-making described in the above note were completed with the assistance of the mid-level provider. I reviewed and agree with the findings presented. I attest that I had a [id number] encounter with the patient on the same day, and personally performed and documented my assessment and findings in the medical record. On my examination of 01/23/2018, the patient noted to be generally a little less alert, more fatigued. Still remains awake, conversing appropriately and following commands well. No overall change in upper and lower extremity sensorimotor function compared to the exam over the past 2 or 3 days. Plan follow-up MRI to assess for any further progression of spinal abscess and verify adequate spinal cord and thecal sac decompression. (Jerry Chakraborty MD) Tigre Estrada Jan 23, 2018 12:29 Jerry Chakraborty MD Jan 24, 2018 10:09
[2018-01-23] MEDS ORDERED: GADOBENATE DIM PF 529 MG/ML 20ML VIAL (for RAD MRI) IV ONE (15:21)
--- NOTE | 2018-01-23 15:51 | RADRPT ---
EXAM DATE/TIME: 01/23/2018 14:33 [facility] COMPARISON: MRI THORACIC SPINE W & W/O CONTRAST, January 06, 2018, 14:23. INDICATIONS : Abscess. Possible post op infection. CONTRAST: 18 cc Multihance (gadobenate) IV MEDICAL HISTORY : Benign prostatic hyperplasia, (BPH) SURGICAL HISTORY : Discectomy, lumbar. Tonsillectomy. Tracheostomy. ENCOUNTER: Initial ACUITY: 1 day PAIN SCORE: 4/10 LOCATION: Paraspinal TECHNIQUE: Multiplanar multisequence MRI of the thoracic spine was performed. FINDINGS: Sagittal T1 pre-and postcontrast, T2 and inversion recovery images show extensive decompressive nava ectomies beginning at about T3-4 and extending to T7-1 with probable left hemilaminectomies at T9-10 and T10-11. Elongated fluid collections are seen in both surgical bed with the upper collection measu ring 12.7 x 2.0 cm in the lower collection measuring approximately 4.7 x 1.5 cm. The former extends f rom approximately T2-T8 and the latter from T9-10 to T11. Findings could represent seroma or abscess. In addition, heavily T2-weighted images show some abnormal cord signal predominately at T5-6 and T8- 9 concerning for cord edema or myelomalacia T1-T2: Normal. T2-T3: The thecal sac has a normal diameter. No evidence of disc bulge or protrusion. T3-T4: Decompressive laminectomy. T4-T5: Decompressive laminectomy T5-T6: Decompressive laminectomy T6-T7: Decompressive laminectomy T7-T8: Decompressive laminectomy T8-T9: Central spur with intact lamina results in some degree of spinal stenosis and possible cord compromis e T9-T10: Left hemilaminectomy T10-T11: Left hemilaminectomy T11-T12: The thecal sac has a normal diameter. No evidence of disc bulge or protrusion. T12-L1: The thecal sac has a normal diameter. No evidence of disc bulge or protrusion. CONCLUSION: 1. Extensive postsurgical changes with apparent total laminectomies from C3-4 through T7-8. Elongated fluid collection in the surgical bed could represent seroma or abscess. 2. Second fluid collection adjacent to the left hemilaminectomies at T9-10 and T10-11. Similar differ ential. 3. I believe the lamina at T8-9 remains intact and there is a regional spur resulting in spinal steno sis and some regional cord edema. There appears to be some cord edema at C5-6 as well. Emir Bowles MD on January 23, 2018 at 15:38 Board Certified Radiologist. This report was verified electronically.
--- NOTE | 2018-01-23 16:03 | RADRPT ---
EXAM DATE/TIME: 01/23/2018 14:33 [facility] COMPARISON: MRI LUMBAR SPINE W & W/O CONTRAST, January 05, 2018, 14:27. INDICATIONS : Abscess. Possible post op infection. CONTRAST: 18 cc Multihance (gadobenate) IV MEDICAL HISTORY : Benign prostatic hyperplasia, (BPH) SURGICAL HISTORY : Discectomy, lumbar. Tonsillectomy. Tracheosomy. ENCOUNTER: Initial ACUITY: 1 day PAIN SCORE: 4/10 LOCATION: Paraspinal TECHNIQUE: Multiplanar multisequence MRI of the lumbar spine was performed with and without contrast. FINDINGS: The most caudal appearing lumbar vertebra is numbered as L5. Sagittal T1 pre-and postcontrast, T2 and inversion recovery images show interval worsening in the cortney earance of the lumbar spine. Extensive postsurgical changes as described previously. However, there n ow appear to be an anterior epidural abscess extending from L1-2 through L3. This may actually extend into the adjacent vertebral bodies at L2 and L3 and the disc at L3-4. In addition, abscess is now id entified in the right psoas muscle which shows multiple loculations and marked enlargement. CONCLUSION: 1. Marked interval worsening in the appearance of the back. There may be a developing epidural absces s anteriorly from L1-2 through L3-4. There may be some abscess developing in the surgical bed in the region of the hemilaminectomies at the same levels on the left. 2. In addition, there may be some extension into the adjacent vertebral bodies with osteomyelitis and discitis. Definite abscesses in the enlarged right psoas muscle. Emir Bowles MD on January 23, 2018 at 15:53 Board Certified Radiologist. This report was verified electronically.
--- NOTE | 2018-01-23 16:12 | RADRPT ---
EXAM DATE/TIME: 01/23/2018 14:33 [facility] COMPARISON: MRI CERVICAL SPINE W/O CONTRAST, January 03, 2018, 0:38. MRI CERVICAL SPINE W & W/O CONTRAST, January, 14:23. INDICATIONS : Abscess. Possible post op infection. CONTRAST: 16 cc Multihance (gadobenate) IV MEDICAL HISTORY : Benign prostatic hyperplasia, (BPH) SURGICAL HISTORY : Discectomy, lumbar. Tonsillectomy. Tracheostomy. ENCOUNTER: Initial ACUITY: 1 day PAIN SCORE: 4/10 LOCATION: Paraspinal TECHNIQUE: Multiplanar, multisequence MRI examination of the cervical spine was performed. FINDINGS: Sagittal T1, T2 and inversion recovery images show successful decompressive laminectomies from C2-3 t hrough C5-6 with resolution of multiple areas of high-grade stenosis identified previously. The C6-7 and C7-T1 lamina remain intact with moderate stenosis at these levels. No obvious cord compromise, ho wever. Cord signal is normal throughout. C2-C3: Decompressive laminectomy. Spinal canal is patent C3-C4: Decompressive laminectomy. Spinal canal is patent C4-C5: Decompressive laminectomy. Spinal canal is patent C5-C6: Decompressive laminectomy. Spinal canal is patent C6-C7: Mild, diffuse uncovertebral ridging. Some degree of spinal stenosis but the spinal canal and neural f oramina appear adequate C7-T1: Some posterior element hypertrophy with mild encroachment on the spinal canal. Spinal canal and neura l foramina are adequate. CONCLUSION: 1. Extensive decompressive laminectomies from C2-3 through C5-6 and successfully restored the spinal canal and relief multilevel high-grade stenosis and cord compromise identified on the previous. 2. Mild to moderate central spinal stenosis at C6-7 and C7-T1 but no cord or nerve root compromise. Emir Bowles MD on January 23, 2018 at 16:01 Board Certified Radiologist. This report was verified electronically.
[2018-01-23] MEDS: ACETAMINOPHEN 325 MG TAB PO PRN (16:15)
[2018-01-23] MEDS: POTASSIUM CHLORIDE 20 MEQ PWD PACKET PO SCH (20:30)
[2018-01-23] MEDS: TAMSULOSIN HCL 0.4 MG CAP PO SCH (20:34)
--- NOTE | 2018-01-23 22:57 | HHI.PR ---
Subjective Remarks Follow up for C, T, L epidural abscess, bacteremia, respiratory failure. Patient is resting in bed. No acute concerns. Underwent MRI studies today. Objective Vitals Vital Signs Date Time Temp Pulse Resp B/P (MAP) Pulse Ox O2 Delivery O2 Flow Rate FiO2 01/23/18 20:13 96 21 01/23/18 20:00 100.2 87 21 94/52 (66) 95 01/23/18 20:00 86 01/23/18 19:00 94 T-Piece 28 01/23/18 18:00 87 01/23/18 16:00 102.4 93 24 107/60 (76) 97 01/23/18 16:00 95 01/23/18 14:00 91 01/23/18 12:00 93 01/23/18 12:00 99.1 95 20 106/53 (70) 97 01/23/18 11:10 13 01/23/18 10:17 97 T-piece 21 01/23/18 10:00 95 01/23/18 09:30 27 01/23/18 08:00 99.6 95 20 117/56 (76) 96 01/23/18 08:00 96 01/23/18 07:00 98 T-Piece 28 01/23/18 06:00 92 01/23/18 04:00 99.1 80 20 89/54 (66) 95 01/23/18 04:00 80 01/23/18 02:00 68 01/23/18 00:00 100.0 93 17 111/60 (77) 95 01/23/18 00:00 93 I/O 01/22/18 01/22/18 01/22/18 01/23/18 01/23/18 01/23/18 07:00 15:00 23:00 07:00 15:00 23:00 Intake Total 1107 ml 845 ml 1225 ml 1065 ml 1000 ml 882 ml Output Total 825 ml 1050 ml 1000 ml 1100 ml Balance 282 ml 845 ml 175 ml 65 ml 1000 ml -218 ml Intake Oral 0 ml IV Total 100 ml 45 ml 100 ml 1000 ml Tube Feeding 607 ml 675 ml 665 ml 482 ml Packed Cells 800 ml Tube Irrigant 450 ml 400 ml 400 ml Other 400 ml Output Urine Total 825 ml 1050 ml 1000 ml 1100 ml # Bowel Movements 3 1 3 2 Result Diagram: 4/22/18 0750 01/23/18 0750 Imaging Last Impressions Thoracic Spine MRI 01/23/18 0000 Signed Impressions: Service Date/Time: Tuesday, January 23, 2018 14:33 - CONCLUSION: 1. Extensive postsurgical changes with apparent total laminectomies from C3-4 through T7-8. Elongated fluid collection in the surgical bed could represent seroma or abscess. 2. Second fluid collection adjacent to the left hemilaminectomies at T9-10 and T10-11. Similar differential. 3. I believe the lamina at T8-9 remains intact and there is a regional spur resulting in spinal stenosis and some regional cord edema. There appears to be some cord edema at C5-6 as well. Emir Bowles MD Lumbar Spine MRI 01/23/18 0000 Signed Impressions: Service Date/Time: Tuesday, January 23, 2018 14:33 - CONCLUSION: 1. Marked interval worsening in the appearance of the back. There may be a developing epidural abscess anteriorly from L1-2 through L3-4. There may be some abscess developing in the surgical bed in the region of the hemilaminectomies at the same levels on the left. 2. In addition, there may be some extension into the adjacent vertebral bodies with osteomyelitis and discitis. Definite abscesses in the enlarged right psoas muscle. Emir Bowles MD Cervical Spine MRI 01/23/18 0000 Signed Impressions: Service Date/Time: Tuesday, January 23, 2018 14:33 - CONCLUSION: 1. Extensive decompressive laminectomies from C2-3 through C5-6 and successfully restored the spinal canal and relief multilevel high-grade stenosis and cord compromise identified on the previous. 2. Mild to moderate central spinal stenosis at C6- 7 and C7-T1 but no cord or nerve root compromise. Emir Bowles MD Chest X-Ray 01/13/18 0000 Signed Impressions: Service Date/Time: January 17:47 - CONCLUSION: 1. Interval removal of endotracheal tube and placement of tracheostomy tube. 2. Hazy opacity is now noted projected over the left lung. This could represent post erlying fluid. Jorge Luis Puri MD Abdomen X-Ray 01/12/18 0600 Signed Impressions: Service Date/Time: Friday, January 12, 2018 04:57 - CONCLUSION: Mild gaseous distention possibly ileus. Hussein Fontaine MD Thoracic Spine X-Ray 01/08/18 0000 Signed Impressions: Service Date/Time: Sunday, January 07, 2018 21:17 - CONCLUSION: Intraoperative spot images of the thoracic spine for localization purposes. Marcial Redmond MD Lumbar Spine X-Ray 01/08/18 0000 Signed Impressions: Service Date/Time: Sunday, January 07, 2018 21:17 - CONCLUSION: Single intraoperative spot image for localization purposes. Marcial Redmond MD Chest CT 01/06/18 0000 Signed Impressions: Service Date/Time: January 18:51 - CONCLUSION: 1. No abscess identified outside of the thoracic spinal canal. Small bilateral pleural effusions. NG coiled in the stomach. Frederick Rizzo MD Brain MRI 01/06/18 0000 Signed Impressions: Service Date/Time: January 14:23 - CONCLUSION: 1. Negative MRI of the brain with and without contrast. Jagjit Wilkinson MD Abdomen/Pelvis CT 01/06/18 0000 Signed Impressions: Service Date/Time: January 18:51 - CONCLUSION: 1. Multiple laminectomy defects in the lumbar spine with some locules of air both within the canal and within the L2 vertebral body which could be related to infection. Cannot exclude abscess formation within the canal. 2. 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 3. Diffuse ileus. 4. Small effusions and mild anasarca. 5. Peck catheter in decompressed bladder. NG coiled in stomach. Frederick Rizzo MD Objective Remarks GENERAL: Alert, follows commands, Pleasant. SKIN: Warm. HEAD: Normocephalic. EYES: No scleral icterus. No injection or drainage. NECK: Supple, trachea midline. trach in place, no evidence of bleeding. c- collar in place. CARDIOVASCULAR: normal rate, regular rhythm. sinus. No JVD. RESPIRATORY: Equal chest rise. t-piece. no accessory muscle use. GASTROINTESTINAL: Abdomen soft, mildly distended. nontender. no guarding. MUSCULOSKELETAL: well perfused limbs. NEURO EXAM: No movement of lower extremities. Procedures 01/03/2018 1. Bilateral L1-2, L2-3, L3 4, L4 5 decompressive semi-laminectomy, medial facetectomy for spinal canal decompression. 01/06/2018, 01/07/2018 Procedure number 1. C2-C6 decompressive laminectomy Procedure number 2,Via separate incision: T2-T6 decompressive laminectomy A/P Problem List: (1) Spinal cord compression ICD Code: G95.20 - Unspecified cord compression (2) Lumbar canal stenosis ICD Code: M48.061 - Spinal stenosis, lumbar region without neurogenic claudication (3) Sepsis ICD Code: A41.9 - Sepsis, unspecified organism (4) UTI (urinary tract infection) ICD Code: N39.0 - Urinary tract infection, site not specified (5) Acute hypoxemic respiratory failure ICD Code: J96.01 - Acute respiratory failure with hypoxia (6) Thrombocytopenia ICD Code: D69.6 - Thrombocytopenia, unspecified (7) VALENCIA (acute kidney injury) ICD Code: N17.9 - Acute kidney failure, unspecified (8) Bacteremia ICD Code: R78.81 - Bacteremia (9) Osteoporosis ICD Code: M81.0 - Age-related osteoporosis without current pathological fracture (10) Altered mental status ICD Code: R41.82 - Altered mental status, unspecified (11) Acute ascending myelitis ICD Code: G04.91 - Myelitis, unspecified (12) Ileus ICD Code: K56.7 - Ileus, unspecified Status: Acute Assessment and Plan Mr. Reeves is a 67 year old male who presented to the emergency department on 01/02/2018 lower extremity numbness and weakness that began on 12/31/2017. Patient underwent prostate biopsy by urology 6 days prior to this admission. Patient tolerated the procedure and was able to go back to work. However within 24-48 hours he started experiencing fever and chills with T-max 10 1F. He went to his primary care physician who treated him with muscle relaxer and discharged home with Flexeril. He went back to his primary care physician and he was sent home on ciprofloxacin. On the day of admission patient fell in the shower due to weakness in his legs and went to [facility]. He received lidocaine patch to his left side of his low back and intramuscular injection of Decadron, Toradol and morphine and also Ativan orally for anxiety. He went home and fell again and was unable to walk. He apparently did not urinate the entire day upon admission MRI of the thoracic spine shows severe canal stenosis at T2-T3 and T5-T6 level with cord compressions complete or near complete canal obliteration at L2-3 and L3-4 and severe multilevel stenosis of the C-spine. Patient was emergently taken to the OR by neurosurgery Dr. Chakraborty. Was managed in the ICU and extubated on 01/03/2018. He was subsequently transferred to the medical floor. Critical care was again consulted on 01/07/2018 due to respiratory failure. Patient required pressors for septic shock. He underwent tracheostomy on 01/13/2018. He was subsequently transferred to hospitalist service on 2017. Neuro/Psych: Postop day #14 Bilateral L1-2, L2-3, L3 4, L4 5 decompressive semi-laminectomy, medial facetectomy for spinal canal decompression. Depression/anxiety Ascending myelopathy Spinal abscess C-spine revealed cord compression C2 through C4 and C4 through C6. T-spine 2-3/ 5 6 and lumbar spine T throughout L2 with essentially ablation of the cord from L2 through L5. Status post emergent surgery per Dr. Chakraborty 01/03 Acetaminophen 650 mg p.o. every 6 hours as needed pain 1-5/fever oxycodone and Morphine IV PRN for pain Neurochecks Patient underwent MRI studies today - shows evidence of psoas abscess and possible osteomyelitis. Will wait for further recs from Dr. Chakraborty. CV: Dyslipidemia Severe sepsis- resolved. septic shock- resolved. off vasopressors d/c Lasix IV. Currently on atorvastatin 40 mg p.o. daily. Hospital substitution for rosuvastatin 20 mg p.o. daily s/p hydrocortisone stress dose steroids (therapy completed 01/15) Resp: Acute hypoxic hypercarbic respiratory failure- resolving Nebs Wean FiO2 for goal SPO2 greater than 90% OOB to stretcher chair daily PT/OT/Speech therapy GI: Neurogenic ileus- resolving. Acute protein calorie malnutrition- moderate tube feeds. senna/colace, lactulose, miralax, dulcolax supp daily. prn mag citrate if no BM daily. Likely ileus is multifactorial including severe sepsis and postoperative pain, likely compounded by myelopathy and neurogenic component to his ileus Famotidine for GI prophylaxis trend prealbumin weekly : BPH Maintain Peck catheter per urology. have discussed with urology: cannot I/O straight cath for now. recommended changing peck catheter Monthly. Currently on tamsulosin 0.4 mg p.o. daily Recent prostate biopsy. Endo: Sliding scale insulin Accu-Cheks to maintain euglycemia/low regimen Renal: Acute kidney injury- resolved Avoid nephrotoxic drugs Monitor urine output Accurate I's and O's Will start potassium replacement with PO KCL via NG tube. Heme: Thrombocytopenia likely secondary to sepsis- resolved. Anemia secondary to acute blood loss Haptoglobin high. LDH normal. Peripheral smear no signs of schistocytes total bilirubin normal. Status post 2 pack platelets 01/04. Followed by hematology no indication for transfusion ID: Severe Sepsis present on admission (leucocytosis, Tachycardia, source: bacteremia and epidural abscess. E.coli bacteremia high grade E.Coli UTI recent prostate biopsy. PNA aspiration/HCAP Epidural abscess, thoracic and lumbar, C/S E coli C, T, L spine osteomyelitis ID following. Ceftazidime IV for 10 weeks from 01/08/2018. Weekly CBC with diff, CMP, CRP while on IV antibiotics. Repeat imaging may be needed in 4-6 weeks to assess progress. FEN Hypokalemia- resolved Hypernatremia Hypokalemia resolved. Na is 149. Probably 1-2 L of free water deficit. Na 149 --> 151. Will start patient on D5W @ 100cc/hour. Check Na level this afternoon. Discussed with patient's life partner (as stated in the EMR) regarding PEG tube placement as it might be safer than tube feed by NG tube. Life partner agrees with PEG tube placement. Patient also agrees with this plan. Interventional radiology consulted for PEG tube placement - likely PEG Tube placement on 01/24/2018. Access - 01/15 PICC line Peck: keep per urology. change monthly. Full code. Famotidine, SubQ Heparin. Discussed with RN. Problem Qualifiers (1) Lumbar canal stenosis: Qualified Codes: M48.061 - Spinal stenosis, lumbar region without neurogenic claudication (2) UTI (urinary tract infection): Qualified Codes: N30.00 - Acute cystitis without hematuria (3) Osteoporosis: Qualified Codes: M81.0 - Age-related osteoporosis without current pathological fracture (4) Altered mental status: Qualified Codes: R40.4 - Transient alteration of awareness Dwayne Russell DO Jan 23, 2018 22:57
[2018-01-24] VITALS (14 sets, daily range): BP systolic 87–116; BP diastolic 51–66; PULSE 80–95; RESP 15–20; TEMP 99.1–100.6; O2SAT 93–98
[2018-01-24] MEDS: POTASSIUM PHOSPHATE/SODIUM PHOSPHATE 250 MG TAB PO SCH ×5 (00:17→23:27)
[2018-01-24] MEDS: FREE WATER G-TUBE SCH ×5 (00:18→23:27)
[2018-01-24] MEDS: oxyCODONE HCL ORAL CONC 5 MG/0.25 ML SYRINGE PO PRN ×2 (00:18→10:55)
[2018-01-24] MEDS: DEXTROSE 5% IN WATE 1000ML INJ 1,000 ML IV SCH ×3 (03:00→12:14)
[2018-01-24] MEDS: ALBUMIN 25% INJ 100 ML IV SCH ×3 (03:46→20:37)
[2018-01-24] MEDS: HEPARIN SODIUM - SQ 10,000 UNITS/ML VIAL SQ SCH ×3 (05:25→21:55)
[2018-01-24] MEDS: ARTIFICIAL TEARS OPTH SOLN 15 ML BTL EACH EYE SCH ×3 (05:26→21:55)
[2018-01-24] MEDS: cefTRIAXone INJ 2,000 MG in SODIUM CHLORIDE 0.9% INJ 100 ML IV SCH ×2 (05:32→17:47)
[2018-01-24] MEDS: SODIUM CHLORIDE 0.9% FLUSH 10 ML FLUSH IV FLUSH SCH ×2 (08:07→20:37)
[2018-01-24] MEDS: LACTULOSE SYRUP 20 GM/30 ML CUP PO SCH ×2 (09:00→20:38)
--- NOTE | 2018-01-24 10:20 | HHI.NSPN ---
History Chief Complaint: Feels weak Interval History 01/24/2018 exam reveals further decline in overall level of alertness, more fatigued today. Exam Results Vital Signs Date Time Temp Pulse Resp B/P (MAP) Pulse Ox O2 Delivery O2 Flow Rate FiO2 01/24/18 08:09 98 T-piece 6.00 21 01/24/18 08:00 85 01/24/18 08:00 99.1 20 116/66 (83) Intake and Output 01/24/18 01/24/18 01/25/18 08:00 16:00 00:00 Intake Total 400 ml Output Total 850 ml Balance -450 ml Physical Examination GENERAL: He is in bed, resting quietly. His is at bedside. HEENT: Normocephalic, atraumatic. NGT. NECK: Faulkner J cervical collar in place. No JVD. Trached & trachea appears midline. MUSCULOSKELETAL: Moving BUE spontaneously & to command, slight muscle contraction to LLE to command. No evident clubbing or deformity. NEUROLOGICAL: Awake, mild lethargy Spontaneous eye opening. Nonverbal, trached, mouths some words. Nodded head appropriately to questions. Sensation intact to light touch to BUE. Decreased to LLE and becomes absent distally and decreased all the way down the RLE Moving BUE spontaneously & purposefully, mostly 3/5 proximal, 2-3/5 distal upper extremity motor function. Slight muscle contraction to left thigh to command. Lab, Micro, Other Results 01/23/2018 MRI cervical, thoracic, lumbar spine images are reviewed. Agree with findings as noted below. There appears to be extensive recurrent primarily mid lumbar epidural abscess ventral to the thecal sac accompanied by new onset of significant right psoas abscess and diffuse muscle inflammation. There is epidural enhancement extensively throughout the entire spinal canal. Cervical cord appears well decompressed, however there are multiple areas of residual or recurrent stenosis and cord compression throughout the thoracic spine. In the mid lumbar region, there is extensive enhancement throughout the entire canal, suggestive of possible intradural abscess formation. Thoracic Spine MRI 01/23/18 0000 Signed Impressions: Service Date/Time: Tuesday, January 23, 2018 14:33 - CONCLUSION: 1. Extensive postsurgical changes with apparent total laminectomies from C3-4 through T7-8. Elongated fluid collection in the surgical bed could represent seroma or abscess. 2. Second fluid collection adjacent to the left hemilaminectomies at T9-10 and T10-11. Similar differential. 3. I believe the lamina at T8-9 remains intact and there is a regional spur resulting in spinal stenosis and some regional cord edema. There appears to be some cord edema at C5-6 as well. Emir Bowles MD Lumbar Spine MRI 01/23/18 0000 Signed Impressions: Service Date/Time: Tuesday, January 23, 2018 14:33 - CONCLUSION: 1. Marked interval worsening in the appearance of the back. There may be a developing epidural abscess anteriorly from L1-2 through L3-4. There may be some abscess developing in the surgical bed in the region of the hemilaminectomies at the same levels on the left. 2. In addition, there may be some extension into the adjacent vertebral bodies with osteomyelitis and discitis. Definite abscesses in the enlarged right psoas muscle. Emir Bowles MD Cervical Spine MRI 01/23/18 0000 Signed Impressions: Service Date/Time: Tuesday, January 23, 2018 14:33 - CONCLUSION: 1. Extensive decompressive laminectomies from C2-3 through C5-6 and successfully restored the spinal canal and relief multilevel high-grade stenosis and cord compromise identified on the previous. 2. Mild to moderate central spinal stenosis at C6- 7 and C7-T1 but no cord or nerve root compromise. Emir Bowles MD Medical Decision Making Impression and Plan Impression: 1. Persistent progression of extensive diffuse spinal epidural abscess and inflammation with further progression of mid lumbar osteomyelitis as well as new large mid lumbar ventral epidural abscess in area of previous decompression. Also new extensive right psoas muscle abscess and diffuse muscular inflammation. This has occurred despite aggressive targeted culture driven antibiotic therapy and multiple previous surgical decompressive procedures. Plan: The findings were discussed at length with the patient's in the intensive care unit today in conjunction with infectious disease. Given the multiple areas of spinal cord compromise with possible intrinsic cord and cauda equina infection, his overall decline in mental status and poor medical condition, poor prognosis for recovery of neurologic function, and likelihood of the patient requiring further multiple surgical procedures including potential extensive lumbar spine reconstruction with instrumentation, it is felt that his chance of meaningful survival is very poor. The patient's appears to understand and request palliative care consultation with possible consideration of hospice evaluation. Further surgical decompressive procedure will be deferred at this time. Jerry Chakraborty MD Jan 24, 2018 10:20
--- NOTE | 2018-01-24 10:26 | HHI.IDPN ---
Subjective Subjective Remarks Mr. Reeves is a 67 y/o CM with history of BPH who underwent a prostate biopsy one week ago, on 12/27/17. On the evening of 12/29/17 he developed fever and chills, low back pain, and lower extremity numbness and paresthesias and muscle spasm. He was seen by his primary care physician and was given medication including muscle relaxant. The symptoms persisted and he returned to his primary care physician on 01/01/18 and was given additional medications including Cipro and medrol dose pack. On 01/02/2018 patient woke up with increased lower extremity weakness and numbness, and fell in the shower in the morning, after which he was unable to ambulate or lift his legs off the bed , and continued to experience pain in the lower back. He went to the emergency room at [facility], and was given additional medication injections. He could not lift his legs off the bed or ambulate in the emergency room, and was taken out to his car and lifted into the car and sent home again. He fell in the driveway again trying to get back into the house. He apparently did not urinate for the entire day. He has no complaint of pain which is numbness paresthesias in the upper extremities. Reportedly on admission there was no numbness or paresthesias over the chest or abdomen or pelvic region. The MRI of thoracic spine shows severe canal stenosis at T2-3 and T5-6 level with cord compressions, complete or near complete canal obliteration at L2-3 L3- 4 and severe multilevel canal stenosis of the C-spine. Entire spine including C spine shows areas of stenosis. Upon my discussion with patient had to be emergently taken to the OR for decompression. Intraop cultures were taken and no hardware placed at present time but it appears that patient will need more surgeries. The MRIs done were non contrast due to Acute renal failure on admission and cannot be repeated. Per dw plan is to treat as epidural abscess stone since patient was treated for few days with antibiotics prior to arrival and also due to patient needing hardware placement which can be seeded. Previously, Intubated, being weaned off sedation, UO is good peck in place. Not on any pressors. There is a plan wean and extubate. ID consulted for evaluation and Management of GN madonna bacteremia (E.coli CTX M negative) and possible epidural abscess. Patient underwent procedure C2-C6 decompressive laminectomy, procedure to T2-T6 decompressive laminectomy as well as lumbar. (Separate incisions) by Dr. Chakraborty Overnight events reviewed with RN. On T-piece S/P trach 01/13 [address] in place. Await PEG tube placement today but now on hold with new findings on MRI. MRI C,T,L spine reviewed with : worsening in disease in lumbar and thoracic spine noted. Psoas muscle abscess, intraspinal abscess and destruction of bone, ongoing inflammation in muscles noted. On culture driven antibiotic therapy and appeared to be stable but now with worsening disease. MRI done as LE weakness not improving. No fevers No rash No diarrhea Spouse informs me he had biopsy done for elevated PSA. No UA done ? prostatitis as possibility prior to biopsy as a possibility. Appears more tired today. Complains of lower back pain. Antibiotics Ceftriaxone IV q12rs Lines Line sites with no e.o infection Past Medical History Depression BPH Hypothyroidism Past Surgical History Prostate biopsy, Tonsillectomy, history of kidney surgery. Prostate surgery Allergies: Coded Allergies: No Known Allergies (Unverified , 01/02/18) Objective . Vital Signs Date Time Temp Pulse Resp B/P (MAP) Pulse Ox O2 Delivery O2 Flow Rate FiO2 01/24/18 08:09 98 T-piece 6.00 21 01/24/18 08:00 85 01/24/18 08:00 99.1 83 20 116/66 (83) 95 01/24/18 07:00 96 T-Piece 28 01/24/18 06:00 84 01/24/18 04:00 99.6 81 19 87/51 (63) 96 01/24/18 04:00 81 01/24/18 03:42 18 01/24/18 02:00 80 01/24/18 00:00 86 01/24/18 00:00 99.2 86 20 112/58 (76) 96 01/23/18 22:00 83 01/23/18 20:13 96 21 01/23/18 20:00 100.2 87 21 94/52 (66) 95 01/23/18 20:00 86 01/23/18 19:00 94 T-Piece 28 01/23/18 18:00 87 01/23/18 16:00 102.4 93 24 107/60 (76) 97 01/23/18 16:00 95 01/23/18 14:00 91 01/23/18 12:00 93 01/23/18 12:00 99.1 95 20 106/53 (70) 97 01/23/18 11:10 13 01/24/18 01/24/18 01/25/18 15:00 23:00 07:00 Intake Total 100 ml Balance 100 ml IV Total 100 ml . Laboratory Tests Test 01/23/18 07:50 White Blood Count 11.2 TH/MM3 Red Blood Count 2.56 MIL/MM3 Hemoglobin 7.7 GM/DL Hematocrit 22.8 % Mean Corpuscular Volume 89.2 FL Mean Corpuscular Hemoglobin 30.1 PG Mean Corpuscular Hemoglobin Concent 33.8 % Red Cell Distribution Width 15.6 % Platelet Count 241 TH/MM3 Mean Platelet Volume 8.3 FL Laboratory Tests Test 01/22/18 17:16 01/23/18 07:50 Sodium Level 150 MEQ/L 148 MEQ/L Blood Urea Nitrogen 64 MG/DL Creatinine 1.99 MG/DL Random Glucose 151 MG/DL Calcium Level 9.3 MG/DL Potassium Level 3.2 MEQ/L Chloride Level 106 MEQ/L Carbon Dioxide Level 33.7 MEQ/L Anion Gap 8 MEQ/L Estimat Glomerular Filtration Rate 34 ML/MIN Imaging Chest X-Ray 01/13/18 0000 Signed Impressions: Service Date/Time: January 17:47 - CONCLUSION: 1. Interval removal of endotracheal tube and placement of tracheostomy tube. 2. Hazy opacity is now noted projected over the left lung. This could represent post erlying fluid. Jorge Luis Puri MD Abdomen X-Ray 01/12/18 0600 Signed Impressions: Service Date/Time: Friday, January 12, 2018 04:57 - CONCLUSION: Mild gaseous distention possibly ileus. Hussein Fontaine MD Thoracic Spine X-Ray 01/08/18 0000 Signed Impressions: Service Date/Time: Sunday, January 07, 2018 21:17 - CONCLUSION: Intraoperative spot images of the thoracic spine for localization purposes. Marcial Redmond MD Lumbar Spine X-Ray 01/08/18 0000 Signed Impressions: Service Date/Time: Sunday, January 07, 2018 21:17 - CONCLUSION: Single intraoperative spot image for localization purposes. Marcial Redmond MD Thoracic Spine MRI 01/06/18 Signed Impressions: Service Date/Time: January 14:23 - CONCLUSION: 1. Multilevel cord compression is due predominantly to multiple disc protrusions. Significant cord compression is present at least 6 levels. There is also cord compression posteriorly at the T10 level due to a fluid collection in the midline which measures 6 mm in AP dimension. 2. There is also focal subcutaneous right parasagittal fluid collection at T10 and T11 which does not demonstrate peripheral contrast enhancement. An abscess is suspected. Jagjit Wilkinson MD Chest CT 01/06/18 Signed Impressions: Service Date/Time: January 18:51 - CONCLUSION: 1. No abscess identified outside of the thoracic spinal canal. Small bilateral pleural effusions. NG coiled in the stomach. Frederick Rizzo MD Cervical Spine MRI 01/06/18 Signed Impressions: Service Date/Time: January 14:23 - CONCLUSION: 1. Severe degenerative changes with severe spinal stenosis at C2-3, C3-4, C4-5 and C5-6. There is moderate spinal stenosis at C6-7 and C7-T1. Overall assessment of the cord is limited due to motion artifact. I do not definitively see edema within the cord however there is significant flattening of the cord at multiple levels. 2. No significant abnormal contrast enhancement identified. Leonardo Sorenson MD Brain MRI 01/06/18 Signed Impressions: Service Date/Time: January 14:23 - CONCLUSION: 1. Negative MRI of the brain with and without contrast. Jagjit Wilkinson MD Abdomen/Pelvis CT 01/06/18 Signed Impressions: Service Date/Time: January 18:51 - CONCLUSION: 1. Multiple laminectomy defects in the lumbar spine with some locules of air both within the canal and within the L2 vertebral body which could be related to infection. Cannot exclude abscess formation within the canal. 2. 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 3. Diffuse ileus. 4. Small effusions and mild anasarca. 5. Peck catheter in decompressed bladder. NG coiled in stomach. Frederick Rizzo MD Lumbar Spine MRI 01/05/18 0000 Signed Impressions: Service Date/Time: Friday, January 05, 2018 14:27 - CONCLUSION: 1. Extensive postsurgical changes with apparent left decompressive laminectomy leftward from L1 to through L4-5. 2. There is a well-circumscribed 1.4 cm cystic structure midline just posterior to the thecal sac at L4-5 which was not clearly present previously. May represent a small seroma which could result in some degree of central spinal stenosis despite the left laminectomy. 3. In addition, severe narrowing of the right L4-5 neural foramen with almost certain compromise of the right L4 nerve root. Emir Bowles MD Physical Exam GENERAL: awake, on T-piece. SKIN: Warm and dry. HEAD: Normocephalic. EYES: Pupils equal round. No scleral icterus. No injection or drainage. ENT: Moist mucosa NECK: Yates J collar in place. Trach site ok CARDIOVASCULAR: Tachycardic. RESPIRATORY: Has scattered rhonchi GASTROINTESTINAL: Abdomen non-tender, soft, slightly distended. : Peck catheter in place. BACK: Surgical incisions healing well per nursing report. MUSCULOSKELETAL: Extremities without clubbing, cyanosis. Generalized edema +1 of extremities. NEUROLOGICAL: Opens eyes follows commands. Moves UE at wrist level. No movement in BLE. cooperative Assessment & Plan Remarks Severe Sepsis present on admission (leucocytosis, Tachycardia, source: bacteremia and epidural abscess. E.coli bacteremia high grade E.Coli UTI recent prostate biopsy. PNA aspiration/HCAP Epidural abscess, thoracic and lumbar, C/S E coli - S/P surgery and evacuation Recent history of prostate biopsy as risk factor for E.coli bacteremia. Incomplete Quadriparesis. Paraparesis present on admission. Recs: Continue Ceftriaxone IV q12hrs MRI C,T,L spine reviewed with : worsening in disease in lumbar and thoracic spine noted. Psoas muscle abscess, intraspinal abscess and destruction of bone, ongoing inflammation in muscles noted. On culture driven antibiotic therapy and appeared to be stable but now with worsening disease. MRI done as LE weakness not improving. jose alberto Connor separately and reviewed imaging prior to dw spouse. and I met with spouse and reviewed imaging and current treatment plan. dw him that despite aggressive surgical debridement and culture driven antibiotic therapy patients disease process has worsened based on new MRI findings. offered palliative care as well as hospice to spouse. He would like palliative care to visit with him. Agreeable with holding PEG tube for now. Explained to him that if IV antibiotics stopped the patients disease will worsen and he will decline rapidly and succumb to the infection. He understands and is very thankful of care provided. Shanda Charles MD Jan 24, 2018 10:26
[2018-01-24] MEDS: ATORVASTATIN 40 MG TAB PO SCH (10:51)
[2018-01-24] MEDS: DOCUSATE SODIUM 50 MG/SENNA 8.6 MG TAB PO SCH ×2 (10:51→20:38)
[2018-01-24] MEDS: POTASSIUM CHLORIDE 20 MEQ PWD PACKET PO SCH ×2 (10:52→20:38)
[2018-01-24] MEDS: METHOCARBAMOL 500 MG TAB PO SCH ×4 (10:52→20:38)
[2018-01-24] MEDS: BISACODYL 10 MG SUPP RECTAL SCH (10:52)
[2018-01-24] MEDS: POLYETHYLENE GLYCOL 17 GM PKG PO SCH ×2 (10:52→20:38)
[2018-01-24] MEDS: GABAPENTIN 250 MG/5 ML UDC NG SCH ×3 (10:52→17:47)
[2018-01-24] MEDS: FAMOTIDINE 20 MG TAB PO SCH ×2 (10:52→20:38)
[2018-01-24] MEDS: MORPHINE SULFATE 2 MG/ML SYRINGE IV PUSH PRN (14:40)
[2018-01-24] MEDS ORDERED: POTASSIUM CHLORIDE 25 MEQ EFFERVESCENT TAB NG ONE (16:00)
--- NOTE | 2018-01-24 16:34 | PD.CONS ---
Consult Service Palliative Care . Consult Requested By Dr. Chakraborty . Primary Care Physician Jamin Latif MD . Reason for Consultation a. To assist with evaluation and management of symptoms including: pain; dyspnea; paraplegia b. To assist medical decision maker(s) with: better understanding of current medical conditions; weighing benefits/burdens of medical treatment options; making medical treatment decisions. . HPI History of Present Illness Mr. Reeves is a 67 y/o M with a past history of depression, BPH, hyperlipidemia , hypothyroidism, nephrolithiasis who presented to the [facility] ED on 10/21 c/o a several day history of progressively worsening lower extremity numbness and weakness over several days. The patient had just undergone a prostate bx by Dr. Juarez 6 days prior to ED presentation. He did well the next day, but two days after the procedure began having fevers (T 101) , chills , and then left lower back pain. He was seen by his primary care physician 3 days after the procedure and was reportedly treated with pain medication and a muscle relaxant. He had worsening weakness in his legs and returned to his primary care physician 5 days after the procedure and was started on Cipro. On 01/02 he fell in the shower due to weakness in his lower extermities. He went to [facility]. He was given IM dexamethasonem, IM toradol, morphine, lorazepam, and a lidocaine patch . He was discharged home, but fell again in the driveway and was unable to walk. He then presented to the [place] ED at 2148 on 01/02/18. He had been unable to urinate the entire day. He had a poor appetite and had taken in only small amounts of fluid. He denied chest pain, SOB, abdominal pain, upper extremity weakness, facial droop, speech difficulties. Initial VS in the ED were as follows: T 98.5; P 90 ; RR 18; BP 182/85; Pulse ox 95% on room air. Initial physical exam by the ED provider noted the following: Patient was tachypnic and appeared uncomfortable. Sinus tachycardia with HR in the low 100s. No spinous process tenderness. There was tendernes over the left side of the sacrum. Strength was 2/5 in bilateral lower extremities. DTRs were absent in the LEs.. No sensation noted in LEs below the knees. Initial diagnostic testing noted the following: * CBC showed WBC 12.6; hemoglobin 15.8; platelet count 18. Band neutrophils were 19%. Toxic vacuolation was present * coagulation profile showed PT 10.7; INR 1.1; PTT 24.5 * Chemistry profile showed sodium 129; potassium 3.7; chloride 93; CO2 23.5; anion gap 13; BUN 69; creatinine 2.23; glucose 141 * Liver function studies showed total bilirubin 1.0; alk phos 321; AST 61; ALT 43; total protein 9.3; albumin 2.7 * Lactic acid level was 4.0 * Cardiac serology showed total CK 927; CK-MB 20.4; CK-MB percent 2.2; troponin less than 0.02; B-type natriuretic peptide 44 * Urinalysis remarkable for moderate occult blood; moderate leukocyte esterase; 10 WBCs per high-power field. Moderate bacteria * EKG showed sinus rhythm with a rate of [address] segment elevation. * Chest x-ray showed mild basilar atelectasis or scarring * MRI of the cervical, lumbar, and thoracic spine showed the following: There is severe multilevel canal stenosis most critical at C4-5 and C5-6; complete or near canal obliteration at L2-3, L3-4, and L4-5 with less severe compromise at L1-2 and T12-L1. There is also severe abnormalities with stenosis at T2-3, T5-6 In the emergency department the patient was given a 1 L fluid bolus which was repeated an additional time. Morphine was provided for pain. Zofran was provided for nausea. Given the patient's presentation and MRI findings A stat call was placed to the on-call neurosurgeon. Plans were made to take the patient emergently to the operating room. Critical care was consulted. Later that evening the patient underwent bilateral L1-2, L2-3, L3-4, and L4-5 decompressive semi-laminectomy, medial facetectomy, for spinal canal decompression. The patient tolerated the procedure well and did well immediately post op with some neuro improvement. He was ultimately transferred from SICU to floor. On 01/06/18 the patient developed respiratory distress, fever, tachycardia, tachypnea. Repeat MRI of the spine at that time showed fluid collections and evidence of spinal compression in the cervical thoracic and lumbar spinal areas. There was concern for rapidly ascending abscess with neurologic compromise. The patient required additional surgical procedures: * 01/06/18 Procedure number 1. C2-C6 decompressive laminectomy Procedure number 2,Via separate incision: T2-T6 decompressive laminectomy * 01/07/18 Procedure #1: 1. [id number] decompressive semi-laminectomy, evacuation thoracic epidural abscess 2. Evacuation thoracic epidural abscess. Procedure #2: Via separate incision. 1. Revision L2-3, L3 4, L4 5 decompressive semi-laminectomy 2. Evacuation lumbar epidural absces 3. Evacuation of postoperative lumbar epidural hematoma The patient had a persistent septic course requiring ongoing vent management and pressor support. Vent weaning could not progress in the patient underwent tracheostomy on 01/13/18. He then accomplished slow improvement in respiratory status and ended up on a T-piece by 01/18/18. In spite of the surgeries and aggressive infection management by the infectious disease ada accommodation consultant, repeat MRI imaging done on 01/23/18 showed persistent progression of extensive diffuse spinal epidural abscess and further progression of mid lumbar osteomyelitis as well as a new large mid lumbar ventral epidural abscess in the area of previous decompression. There is also a new extensive right psoas muscle abscess and diffuse muscular inflammation. Given these findings, neurosurgery felt that there was a poor prognosis for recovery of neurologic function and that aggressive treatment would involve multiple surgical procedures including extensive lumbar spine reconstruction with instrumentation. Again neurosurgery felt chances for meaningful recovery and survival were poor. Findings were discussed with the patient and the patient's partner along with infectious disease. Palliative care consultation was requested. Patient is currently alert and oriented. He can communicate by mouthing words and nodding/shaking his head yes and no. At the time of my visit, patient is reporting pain. He reports that his pain is primarily in the left upper arm. He reports that pain gets to a #10 on most days. His current analgesic regimen will bring pain levels down to 7. . Function/Cognitive Trajectory The patient was vital and strong prior to his prostate biopsy. He was working 5 days a week, did heavy chores around the house, had not limitations on his activities, and felt in good health. . Review of Systems Constitutional: COMPLAINS OF: Diaphoretic episodes, Fatigue, Fever, Change in appetite, Pain, DENIES: Weight gain, Weight loss Endocrine: DENIES: Polydipsia, Polyuria, Polyphagia Eyes: DENIES: Diplopia, Vision loss Ears, nose, mouth, throat: DENIES: Hearing loss, Vertigo, Throat pain, Hoarseness, Running Nose, Epistaxis Respiratory: COMPLAINS OF: Sputum production, Shortness of breath, DENIES: Apneas, Cough, Snoring, Hemoptysis Cardiovascular: DENIES: Chest pain, Palpitations, Syncope, Dyspnea on Exertion , Lower Extremity Edema Gastrointestinal: COMPLAINS OF: Abdominal pain, Nausea, Anorexia, DENIES: Black stools, Bloody stools, Constipation, Diarrhea, Vomiting Genitourinary: COMPLAINS OF: Urinary frequency, Decreased stream Musculoskeletal: COMPLAINS OF: Joint pain, Muscle aches, Back pain, Neck pain Integumentary: DENIES: Rash Hematologic/Lymphatics: DENIES: Bruising Neurologic: COMPLAINS OF: Abnormal gait, Localized weakness, Paresthesias, Poor Balance, DENIES: Headache, Seizures, Tremor Psychiatric: COMPLAINS OF: Anxiety, Confusion, Depression Past Family Social History Coded Allergies: No Known Allergies (Unverified , 01/02/18) Past Medical History depression BPH hypothyroidism Hyperlipidemia Nephrolithiasis horseshoe kidneys . Past Surgical History prostate bx kidney surgery cholecystectomy . Reported Medications Pre-hospitalization medications included the following: Hydrocodone-Acetaminophen 5-325 mg Tab 1 Tab PO Q4H PRN Tamsulosin (Tamsulosin HCl) 0.4 Mg Cap 0.4 Mg HS Meloxicam 7.5 Mg Tab 7.5 Mg PO BID Ciprofloxacin (Ciprofloxacin HCl) 500 Mg Tab 500 Mg PO BID Rosuvastatin (Rosuvastatin Calcium) 20 Mg Tab 20 Mg PO DAILY Medrol (Methylprednisolone) 4 Mg Tab 4 Mg PO DIRECTED Robaxin (Methocarbamol) 500 Mg Tab 500 Mg PO QID . Current Medications Medications (Trade) Dose Ordered Sig/Kaveh Route Start Time Stop Time Status Last Admin (Robaxin) 500 mg QID PO 01/03/18 09:00 01/24/18 12:20 (Flomax) 0.4 mg HS PO 01/03/18 21:00 01/23/18 20:34 (Lipitor) 40 mg DAILY PO 01/03/18 09:00 01/24/18 10:51 (NS Flush) 2 ml UNSCH PRN IV FLUSH 01/03/18 05:00 (NS Flush) 2 ml BID IV FLUSH 01/03/18 09:00 01/23/18 20:30 (Tylenol) 650 mg Q6H PRN PO 01/03/18 05:00 01/23/18 16:15 (Zofran Inj) 4 mg Q6H PRN IV PUSH 01/03/18 05:00 01/05/18 15:50 (Roxana-Colace) 1 tab BID PO 01/03/18 09:00 01/24/18 10:51 (Tears Naturale Opth Soln) 1 drop Q8HR EACH EYE 01/03/18 14:00 01/24/18 14:29 (Albuterol Neb) 2.5 mg Q2HR NEB PRN NEB 01/03/18 10:00 01/09/18 11:30 (Pepcid) 20 mg BID PO 01/04/18 21:00 01/24/18 10:52 (K-Phos Neutral) 250 mg Q6HR PO 01/05/18 18:00 01/24/18 12:20 (Dulcolax Supp) 10 mg DAILY RECTAL 01/09/18 16:15 01/11/18 08:07 (Miralax) 17 gm BID PO 01/12/18 09:00 Future hold 01/23/18 20:30 (Lactulose Liq) 30 ml BID PO 01/12/18 09:00 Future hold 01/20/18 09:01 (Heparin Inj) 5,000 units Q8HR SQ 01/13/18 14:00 01/24/18 14:40 Albumin Human 100 ml @ 60 mls/hr Q8H IV 01/14/18 12:00 01/24/18 12:19 (Heparin Central Flush) See Protocol DAILY IV FLUSH 01/15/18 09:00 01/21/18 09:17 (Heparin Central Flush) See Protocol UNSCH PRN IV FLUSH 01/14/18 21:15 (NS Flush) UNSCH PRN IV FLUSH 01/14/18 21:15 (Roxicodone Intensol Liq) 10 mg Q6H PRN PO 01/16/18 10:00 01/24/18 10:55 (Neurontin Liq) 300 mg TID NG 01/16/18 09:00 01/24/18 12:20 (Free Water) VOLUME: 200 ML Q6HR G-TUBE 01/17/18 07:30 01/24/18 12:20 Ceftriaxone Sodium 2000 mg/ Sodium Chloride 100 ml @ 200 mls/hr Q12H IV 01/21/18 18:00 01/24/18 05:32 Dextrose 1,000 ml @ 100 mls/hr Q10H IV 01/22/18 11:00 01/23/18 07:44 (KCl Powder) 20 meq Q12HR PO 01/23/18 21:00 01/28/18 20:59 01/24/18 10:52 (Morphine Inj) 4 mg Q4H PRN IV PUSH 01/24/18 16:00 Family History Father of bone cancer. Mother of "old age." Patient is unaware of any other diseases running in the family. . Substance Use Tobacco: Patient has been a 1 pack per day smoker for much of his adult life. Alcohol: No history of alcohol abuse. Prescription med abuse: No history of prescription drug abuse. Illicits: No known use of illicits. . Psychosocial History Patient is originally from [place]. He has lived in [place] about 4 [place]/2 years. He has a Masters degree. 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 Patient was once. He is . He has two children -- Alli lives in [facility]; Roby lives in [place]. He has a sister. Both parents are . The patient has a male partner of 4 years who he currently lives with. . Spiritual/Cultural Factors Patient comes from an Sabianism tradition. Screw Supervisor Tim has visited several times which the patient and partner appreciate. They do not belong to a local oly community. . Living Will: Copy in medical record Health Care Surrogate: Copy in medical record Durable Power of Sander And Polisher: Completed, but not made available Date completed: A living will with health care surrogate designation was completed and signed with me present on 01/24/18. They report that the patient's partner -- Harley -- also has Power of Sander And Polisher. those documents have not been brought it and it is not clear if they include health care POA. . Health Care Surrogate(s): Health care surrogate is male partner -- Henry Velázquez. . Documented care wishes: Patient has completed a standard [place] living will. He does NOT want life prolonging measures going forward as he has an end stage condition. . Today's verbally stated goals: Patient understands this medical condition and prognosis. In front of his partner and in front of the nurse he has been quite clear that he wants to forego further aggressive care (as it is not helping to get him better) , to go home, and to transition to comfort oriented care for whatever time remains. . Family/friends goals: The patient's partner -- Henry -- is in full agreement and supports the patient's wishes. The patient and Henry indicate that the patient's son is aware and the son is in contact with the patient's daughter. . Ethical and Legal Issues Patient is currently capacitated to make his own health care decisions. . Physical Exam Vital Signs Date Time Temp Pulse Resp B/P (MAP) Pulse Ox O2 Delivery O2 Flow Rate FiO2 01/24/18 14:00 95 01/24/18 12:00 86 01/24/18 12:00 99.5 92 15 99/56 (70) 98 01/24/18 10:00 90 01/24/18 08:09 98 T-piece 6.00 21 01/24/18 08:00 85 01/24/18 08:00 99.1 83 20 116/66 (83) 95 01/24/18 07:00 96 T-Piece 28 01/24/18 06:00 84 01/24/18 04:00 99.6 81 19 87/51 (63) 96 01/24/18 04:00 81 01/24/18 03:42 18 01/24/18 02:00 80 01/24/18 00:00 86 01/24/18 00:00 99.2 86 20 112/58 (76) 96 01/23/18 22:00 83 01/23/18 20:13 96 21 01/23/18 20:00 100.2 87 21 94/52 (66) 95 01/23/18 20:00 86 01/23/18 19:00 94 T-Piece 28 01/23/18 18:00 87 . 01/24/18 01/25/18 19:00 07:00 Intake Total 100 ml Balance 100 ml IV Total 100 ml . Exam CONSTITUTIONAL/GENERAL: This is an adequately nourished patient, awake, alert, with [id number]-tube in an SICU bed. Able to smile. No obvious distress. TUBES/LINES/DRAINS: PICC line RUE; peipheral IV; tracheostomy; peck catheter ; SCDs SKIN: No jaundice, rashes, or lesions. No wounds seen anteriorly. Surgical wounds not examined by me. Skin temperature appropriate. Not diaphoretic. HEAD: Atraumatic. Normocephalic. EYES: Pupils equal and round and reactive. Extraocular motions intact. No scleral icterus. No injection or drainage. Fundi not examined. ENT: Hearing grossly normal. Nose without bleeding or purulent drainage. Throat without visible erythema, exudates, masses, or lesions. NECK: Well healed tracheostomy. Supple, nontender. Neck brace in place. CARDIOVASCULAR: Regular rate and rhythm without murmurs, gallops, or rubs. No JVD. Peripheral pulses symmetric. RESPIRATORY/CHEST: Symmetric, unlabored respirations. Clear to auscultation. Breath sounds equal bilaterally. No wheezes, rales, or rhonchi. Intermittent cough. GASTROINTESTINAL: Abdomen soft, non-tender, nondistended. No hepato-splenomegaly , or palpable masses. No guarding. Bowel sounds present. GENITOURINARY: Without palpable bladder distension. Peck catheter in place. MUSCULOSKELETAL: Extremities without clubbing, cyanosis. 1+ edema in LEs. No joint tenderness or effusion noted. No mottling. LYMPHATICS: No palpable adenopathy. NEUROLOGICAL: Awake and alert. No sensation or movement in LEs. Has good gross motor movements in upper extremities (left better than right) but has difficulty with fine motor movements. Follows commands. Cognitively sharp. PSYCHIATRIC: No obvious anxiety/depression. No apparent hallucinations or other psychotic thought process. . Diagnostic Tests Laboratory Laboratory Tests Test 01/22/18 05:03 01/22/18 17:16 01/23/18 07:50 White Blood Count 9.5 TH/MM3 (4.0-11.0) 11.2 TH/MM3 (4.0-11.0) Red Blood Count 2.03 MIL/MM3 (4.50-5.90) 2.56 MIL/MM3 (4.50-5.90) Hemoglobin 6.2 GM/DL (13.0-17.0) 7.7 GM/DL (13.0-17.0) Hematocrit 18.4 % (39.0-51.0) 22.8 % (39.0-51.0) Mean Corpuscular Volume 91.1 FL (80.0-100.0) 89.2 FL (80.0-100.0) Mean Corpuscular Hemoglobin 30.7 PG (27.0-34.0) 30.1 PG (27.0-34.0) Mean Corpuscular Hemoglobin Concent 33.8 % (32.0-36.0) 33.8 % (32.0-36.0) Red Cell Distribution Width 14.9 % (11.6-17.2) 15.6 % (11.6-17.2) Platelet Count 234 TH/MM3 (150-450) 241 TH/MM3 (150-450) Mean Platelet Volume 8.5 FL (7.0-11.0) 8.3 FL (7.0-11.0) Neutrophils (%) (Auto) 81.1 % (16.0-70.0) Lymphocytes (%) (Auto) 9.7 % (9.0-44.0) Monocytes (%) (Auto) 6.0 % (0.0-8.0) Eosinophils (%) (Auto) 2.8 % (0.0-4.0) Basophils (%) (Auto) 0.4 % (0.0-2.0) Neutrophils # (Auto) 7.7 TH/MM3 (1.8-7.7) Lymphocytes # (Auto) 0.9 TH/MM3 (1.0-4.8) Monocytes # (Auto) 0.6 TH/MM3 (0-0.9) Eosinophils # (Auto) 0.3 TH/MM3 (0-0.4) Basophils # (Auto) 0.0 TH/MM3 (0-0.2) CBC Comment DIFF FINAL Differential Comment Blood Urea Nitrogen 63 MG/DL (7-18) 64 MG/DL (7-18) Creatinine 2.04 MG/DL (0.60-1.30) 1.99 MG/DL (0.60-1.30) Random Glucose 149 MG/DL (74-106) 151 MG/DL (74-106) Calcium Level 9.0 MG/DL (8.5-10.1) 9.3 MG/DL (8.5-10.1) Sodium Level 151 MEQ/L (136-145) 150 MEQ/L (136-145) 148 MEQ/L (136-145) Potassium Level 3.7 MEQ/L (3.5-5.1) 3.2 MEQ/L (3.5-5.1) Chloride Level 108 MEQ/L (98-107) 106 MEQ/L (98-107) Carbon Dioxide Level 35.3 MEQ/L (21.0-32.0) 33.7 MEQ/L (21.0-32.0) Anion Gap 8 MEQ/L (5-15) 8 MEQ/L (5-15) Estimat Glomerular Filtration Rate 33 ML/MIN (>89) 34 ML/MIN (>89) Lactic Acid Level 1.9 mmol/L (0.4-2.0) . Result Diagram: 01/23/18 0750 01/23/18 0750 Microbiology Microbiology Date/Time Source Procedure Growth Status 01/05/18 04:00 Blood Peripheral Aerobic Blood Culture - Final NO GROWTH IN 5 DAYS Complete 01/05/18 04:00 Blood Peripheral Anaerobic Blood Culture - Final NO GROWTH IN 5 DAYS Complete 01/08/18 22:22 Sputum Expectorated Sputum Gram Stain - Final Complete 01/08/18 22:22 Sputum Expectorated Sputum Sputum Culture - Final HEAVY GROWTH NORMAL RESPIRATORY JAIME Complete 01/02/18 23:35 Urine Clean Catch Urine Culture - Final Escherichia Coli Complete 01/07/18 22:50 Abscess Back Gram Stain - Final Complete 01/07/18 22:50 Wound Culture - Final Escherichia Coli Complete . Imaging Last Impressions Thoracic Spine MRI 01/23/18 0000 Signed Impressions: Service Date/Time: Tuesday, January 23, 2018 14:33 - CONCLUSION: 1. Extensive postsurgical changes with apparent total laminectomies from C3-4 through T7-8. Elongated fluid collection in the surgical bed could represent seroma or abscess. 2. Second fluid collection adjacent to the left hemilaminectomies at T9-10 and T10-11. Similar differential. 3. I believe the lamina at T8-9 remains intact and there is a regional spur resulting in spinal stenosis and some regional cord edema. There appears to be some cord edema at C5-6 as well. Emir Bowles MD Lumbar Spine MRI 01/23/18 0000 Signed Impressions: Service Date/Time: Tuesday, January 23, 2018 14:33 - CONCLUSION: 1. Marked interval worsening in the appearance of the back. There may be a developing epidural abscess anteriorly from L1-2 through L3-4. There may be some abscess developing in the surgical bed in the region of the hemilaminectomies at the same levels on the left. 2. In addition, there may be some extension into the adjacent vertebral bodies with osteomyelitis and discitis. Definite abscesses in the enlarged right psoas muscle. Emir Bowles MD Cervical Spine MRI 01/23/18 0000 Signed Impressions: Service Date/Time: Tuesday, January 23, 2018 14:33 - CONCLUSION: 1. Extensive decompressive laminectomies from C2-3 through C5-6 and successfully restored the spinal canal and relief multilevel high-grade stenosis and cord compromise identified on the previous. 2. Mild to moderate central spinal stenosis at C6- 7 and C7-T1 but no cord or nerve root compromise. Emir Bowles MD Chest X-Ray 01/13/18 0000 Signed Impressions: Service Date/Time: January 17:47 - CONCLUSION: 1. Interval removal of endotracheal tube and placement of tracheostomy tube. 2. Hazy opacity is now noted projected over the left lung. This could represent post erlying fluid. Jorge Luis Puri MD Abdomen X-Ray 01/12/18 0600 Signed Impressions: Service Date/Time: Friday, January 12, 2018 04:57 - CONCLUSION: Mild gaseous distention possibly ileus. Hussein Fontaine MD Thoracic Spine X-Ray 01/08/18 0000 Signed Impressions: Service Date/Time: Sunday, January 07, 2018 21:17 - CONCLUSION: Intraoperative spot images of the thoracic spine for localization purposes. Marcial Redmond MD Lumbar Spine X-Ray 01/08/18 0000 Signed Impressions: Service Date/Time: Sunday, January 07, 2018 21:17 - CONCLUSION: Single intraoperative spot image for localization purposes. Marcial Redmond MD Chest CT 01/06/18 0000 Signed Impressions: Service Date/Time: January 18:51 - CONCLUSION: 1. No abscess identified outside of the thoracic spinal canal. Small bilateral pleural effusions. NG coiled in the stomach. Frederick Rizzo MD Brain MRI 01/06/18 0000 Signed Impressions: Service Date/Time: January 14:23 - CONCLUSION: 1. Negative MRI of the brain with and without contrast. Jagjit Wilkinson MD Abdomen/Pelvis CT 01/06/18 0000 Signed Impressions: Service Date/Time: January 18:51 - CONCLUSION: 1. Multiple laminectomy defects in the lumbar spine with some locules of air both within the canal and within the L2 vertebral body which could be related to infection. Cannot exclude abscess formation within the canal. 2. 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 3. Diffuse ileus. 4. Small effusions and mild anasarca. 5. Peck catheter in decompressed bladder. NG coiled in stomach. Frederick Rizzo MD . Procedures * Intubation / mechanical ventilation 01/02/18 * Bilateral L1-2, L2-3, L3 4, L4 5 decompressive semi-laminectomy, medial facetectomy for spinal canal decompression. 01/03/18 * Procedure number 1. C2-C6 decompressive laminectomy Procedure number 2, Via separate incision: T2-T6 decompressive laminectomy 01/06/18 * Procedure #1: 1. [id number] decompressive semi-laminectomy, evacuation thoracic epidural abscess 2. Evacuation thoracic epidural abscess. Procedure #2: Via separate incision. 1. Revision L2-3, L3 4, L4 5 decompressive semi-laminectomy 2. Evacuation lumbar epidural absces 3. Evacuation of postoperative lumbar epidural hematoma Patient/Family Conference Present at Family Conference: I spoke with patient alone for about 15 minutes. I then spoke with patient and partner present for about 35 minutes. The partner's daughter was also present. The bedside nurse was present for much of this conversation. . Family Conference Time (mins): 50 Family Conference Location: Bedside Issues Discussed: * Palliative care role, purpose, approach * Additional medical, psychosocial, and spiritual history * Patients general health, functional status, and cognitive changes in the months leading up to the current hospitalization * Patient/family understanding of the current medical problems * Patient/family understanding of prognosis * Patients goals of medical treatment as best understood from advance directives and/or conversations and/or values * Current medical treatment options and benefits/burdens of those options * Likely scenarios comparing ongoing aggressive care with a transition to comfort measures only * Questions answered to the best of my ability * Palliative care contact information provided We also discussed Advance Care Planning -- patient voluntarily agreed to this discussion after it was offered. . Specifically, we reviewed the importance of designating a health care surrogate and writing a living will. I obtained a living will form and assisted with completion of the form with the partner and bedside nurse present. Approximately 20 minutes was spent on Advanced Care Planning alone. . . 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 He has post- op pain. he has discomfort from trach, peck, vascular access lines. Patient reports that current opioid regimen only brings pain levels down from #9 to #7. Quality of pain is unclear. Movement can make it worse. . (2) Dyspnea 0-10 Scale: 0 Comment: Dyspnea is currently managed with trach to T-tube, suctioning, and nebs which is working adequately. . Pertinent Non-Medical Issues Psychosocial: Well supported by male partner locally. Spiritual: Sabianism. Does not belong to a local [place] community Legal: Living will and healht care surrogate designation completed 01/24/18 Ethical issues impacting care: Patient is currently capacitated to make his own health care decisions. . Important Contacts * Henry Velázquez (partner and health care surrogate) [phone] * Maurilio Reeves (son) [phone] . Prognosis Per neurosurgery and infections disease, prognosis for any type of neurological improvement is very poor. Infection can't clear without additional surgery and neurosurgery believes patient has little chance of surviving the complex spinal surgery re-construction necessary and if he does survive chances of neurological improvement are minimal. . Code Status: No Code Plan == Code Status: NO CODE per patient's expressed wishes == Decision Making: Patient is capacitated to make his own health care decisions. Should he become incapacitated, his partner -- Henry Velázquez -- is the designated health care surrogate. == Goals of medical treatment : Patient wants to go home. He understands that further aggressive care is not likely to restore function. He wants for forego further aggressive care, transition to comfort measures only, and spend remaining time at home if possible. == Symptoms * Pain: Patient has pain from his epidural abscess and myelitis. He has post- op pain. he has discomfort from trach, peck, vascular access lines. Patient reports that current opioid regimen only brings pain levels down from #9 to #7. * Dyspnea: Dyspnea is currently managed with trach to T-tube, suctioning, and nebs which is working adequately. * Paraplegia == Recommendations. * Patient and partner are exploring hospice options. I have advised them that they will need 24 hour care as someone has to be present to assist with suctioning if necessary. Partner apparently is friendly with [facility] hospice and plan on speaking with them first. If 24 hour care cannot be provided in the home then they will consider hospice care center placement. * Pain: As patient may be going home with hospice within the next hours, will postpone making recommendations for changing the pain regimen. This will be taken over by the hospice team. Patient has indicated he would prefer to be more comfortable even if that means he is more sleepy. * Patient should sign a [place] DNR form before discharge. == Health care surrogate will contact the palliative care team if plans for [facility] hospice do not fall into place. == Given the widespread nature of his spinal infection, it is anticipated that once IV antibiotics are stopped, sepsis and will come in a matter of days. == Living will / Health Care Surrogate designation signed by patient today and witnessed and placed on chart. == Palliative care will continue to follow should patient remain in the hospital to assist with symptom management and to further clarify goals of medical treatment as the clinical course evolves. . Thank you for the opportunity to participate in the care of Mr. Reeves. . Attestation To help prompt me to consider important information that might be impacting today's encounter and assessment, information from prior notes written by myself or my colleagues may have been "brought forward" into today's note. My signature on this note, however, is an attestation that I personally performed the exam, history, and/or decision-making noted today, and, unless otherwise indicated, the interactions with patient, family, and staff as well as the review of records all occurred today. I also attest that the listed assessment and stated plan reflect my best clinical judgment today based on the combination of historical information, prior notes, and today's exam/ interactions. When time spent is documented, it refers only to time spent today by the signer, or if indicated, combined time spent today by collaborating physician/nurse practitioner. . Patrice Alan MD Jan 24, 2018 16:34
--- NOTE | 2018-01-24 17:17 | HHI.PR ---
Subjective Remarks Follow up for C, T, L epidural abscess, bacteremia, respiratory failure. Patient is currently doing well. No fever or chills. Neurosurgery evaluated patient. In light of recent MRI findings, neurosurgery recommended palliative care/hospice. Patient and partner agree. Objective Vitals Vital Signs Date Time Temp Pulse Resp B/P (MAP) Pulse Ox O2 Delivery O2 Flow Rate FiO2 01/24/18 16:00 86 01/24/18 16:00 99.5 89 18 109/60 (76) 97 01/24/18 14:00 95 01/24/18 12:00 86 01/24/18 12:00 99.5 92 15 99/56 (70) 98 01/24/18 10:00 90 01/24/18 08:09 98 T-piece 6.00 21 01/24/18 08:00 85 01/24/18 08:00 99.1 83 20 116/66 (83) 95 01/24/18 07:00 96 T-Piece 28 01/24/18 06:00 84 01/24/18 04:00 99.6 81 19 87/51 (63) 96 01/24/18 04:00 81 01/24/18 03:42 18 01/24/18 02:00 80 01/24/18 00:00 86 01/24/18 00:00 99.2 86 20 112/58 (76) 96 01/23/18 22:00 83 01/23/18 20:13 96 21 01/23/18 20:00 100.2 87 21 94/52 (66) 95 01/23/18 20:00 86 01/23/18 19:00 94 T-Piece 28 01/23/18 18:00 87 I/O 01/23/18 01/23/18 01/23/18 01/24/18 01/24/18 01/24/18 07:00 15:00 23:00 07:00 15:00 23:00 Intake Total 1065 ml 1000 ml 882 ml 300 ml 100 ml Output Total 1000 ml 1100 ml 850 ml Balance 65 ml 1000 ml -218 ml -550 ml 100 ml IV Total 1000 ml 200 ml 100 ml Tube Feeding 665 ml 482 ml 0 ml Tube Irrigant 400 ml 400 ml 100 ml Output Urine Total 1000 ml 1100 ml 850 ml # Bowel Movements 3 2 3 Result Diagram: 01/23/18 0750 01/23/18 0750 Imaging Last Impressions Thoracic Spine MRI 01/23/18 0000 Signed Impressions: Service Date/Time: Tuesday, January 23, 2018 14:33 - CONCLUSION: 1. Extensive postsurgical changes with apparent total laminectomies from C3-4 through T7-8. Elongated fluid collection in the surgical bed could represent seroma or abscess. 2. Second fluid collection adjacent to the left hemilaminectomies at T9-10 and T10-11. Similar differential. 3. I believe the lamina at T8-9 remains intact and there is a regional spur resulting in spinal stenosis and some regional cord edema. There appears to be some cord edema at C5-6 as well. Emir Bowles MD Lumbar Spine MRI 01/23/18 0000 Signed Impressions: Service Date/Time: Tuesday, January 23, 2018 14:33 - CONCLUSION: 1. Marked interval worsening in the appearance of the back. There may be a developing epidural abscess anteriorly from L1-2 through L3-4. There may be some abscess developing in the surgical bed in the region of the hemilaminectomies at the same levels on the left. 2. In addition, there may be some extension into the adjacent vertebral bodies with osteomyelitis and discitis. Definite abscesses in the enlarged right psoas muscle. Emir Bowles MD Cervical Spine MRI 01/23/18 0000 Signed Impressions: Service Date/Time: Tuesday, January 23, 2018 14:33 - CONCLUSION: 1. Extensive decompressive laminectomies from C2-3 through C5-6 and successfully restored the spinal canal and relief multilevel high-grade stenosis and cord compromise identified on the previous. 2. Mild to moderate central spinal stenosis at C6- 7 and C7-T1 but no cord or nerve root compromise. Emir Bowles MD Chest X-Ray 01/13/18 0000 Signed Impressions: Service Date/Time: January 17:47 - CONCLUSION: 1. Interval removal of endotracheal tube and placement of tracheostomy tube. 2. Hazy opacity is now noted projected over the left lung. This could represent post erlying fluid. Jorge Luis Puri MD Abdomen X-Ray 01/12/18 0600 Signed Impressions: Service Date/Time: Friday, January 12, 2018 04:57 - CONCLUSION: Mild gaseous distention possibly ileus. Hussein F. Tocci, MD Thoracic Spine X-Ray 01/08/18 0000 Signed Impressions: Service Date/Time: Sunday, January 07, 2018 21:17 - CONCLUSION: Intraoperative spot images of the thoracic spine for localization purposes. Marcial Redmond MD Lumbar Spine X-Ray 01/08/18 0000 Signed Impressions: Service Date/Time: Sunday, January 07, 2018 21:17 - CONCLUSION: Single intraoperative spot image for localization purposes. Marcial Redmond MD Chest CT 01/06/18 0000 Signed Impressions: Service Date/Time: January 18:51 - CONCLUSION: 1. No abscess identified outside of the thoracic spinal canal. Small bilateral pleural effusions. NG coiled in the stomach. Frederick Rizzo MD Brain MRI 01/06/18 0000 Signed Impressions: Service Date/Time: January 14:23 - CONCLUSION: 1. Negative MRI of the brain with and without contrast. Jagjit Wilkinson MD Abdomen/Pelvis CT 01/06/18 0000 Signed Impressions: Service Date/Time: January 18:51 - CONCLUSION: 1. Multiple laminectomy defects in the lumbar spine with some locules of air both within the canal and within the L2 vertebral body which could be related to infection. Cannot exclude abscess formation within the canal. 2. 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 3. Diffuse ileus. 4. Small effusions and mild anasarca. 5. Peck catheter in decompressed bladder. NG coiled in stomach. Frederick Rizzo MD Objective Remarks GENERAL: Alert, follows commands, Pleasant. SKIN: Warm. HEAD: Normocephalic. EYES: No scleral icterus. No injection or drainage. NECK: Supple, trachea midline. trach in place, no evidence of bleeding. c- collar in place. CARDIOVASCULAR: normal rate, regular rhythm. sinus. No JVD. RESPIRATORY: Equal chest rise. t-piece. no accessory muscle use. GASTROINTESTINAL: Abdomen soft, mildly distended. nontender. no guarding. MUSCULOSKELETAL: well perfused limbs. NEURO EXAM: No movement of lower extremities. Procedures 01/03/2018 1. Bilateral L1-2, L2-3, L3 4, L4 5 decompressive semi-laminectomy, medial facetectomy for spinal canal decompression. 01/06/2018, 01/07/2018 Procedure number 1. C2-C6 decompressive laminectomy Procedure number 2,Via separate incision: T2-T6 decompressive laminectomy A/P Problem List: (1) Spinal cord compression ICD Code: G95.20 - Unspecified cord compression (2) Lumbar canal stenosis ICD Code: M48.061 - Spinal stenosis, lumbar region without neurogenic claudication (3) Sepsis ICD Code: A41.9 - Sepsis, unspecified organism (4) UTI (urinary tract infection) ICD Code: N39.0 - Urinary tract infection, site not specified (5) Acute hypoxemic respiratory failure ICD Code: J96.01 - Acute respiratory failure with hypoxia (6) Thrombocytopenia ICD Code: D69.6 - Thrombocytopenia, unspecified (7) VALENCIA (acute kidney injury) ICD Code: N17.9 - Acute kidney failure, unspecified (8) Bacteremia ICD Code: R78.81 - Bacteremia (9) Osteoporosis ICD Code: M81.0 - Age-related osteoporosis without current pathological fracture (10) Altered mental status ICD Code: R41.82 - Altered mental status, unspecified (11) Acute ascending myelitis ICD Code: G04.91 - Myelitis, unspecified (12) Ileus ICD Code: K56.7 - Ileus, unspecified Status: Acute Assessment and Plan Mr. Reeves is a 67 year old male who presented to the emergency department on 01/02/2018 lower extremity numbness and weakness that began on 12/31/2017. Patient underwent prostate biopsy by urology 6 days prior to this admission. Patient tolerated the procedure and was able to go back to work. However within 24-48 hours he started experiencing fever and chills with T-max 10 1F. He went to his primary care physician who treated him with muscle relaxer and discharged home with Flexeril. He went back to his primary care physician and he was sent home on ciprofloxacin. On the day of admission patient fell in the shower due to weakness in his legs and went to [facility]. He received lidocaine patch to his left side of his low back and intramuscular injection of Decadron, Toradol and morphine and also Ativan orally for anxiety. He went home and fell again and was unable to walk. He apparently did not urinate the entire day upon admission MRI of the thoracic spine shows severe canal stenosis at T2-T3 and T5-T6 level with cord compressions complete or near complete canal obliteration at L2-3 and L3-4 and severe multilevel stenosis of the C-spine. Patient was emergently taken to the OR by neurosurgery Dr. Chakraborty. Was managed in the ICU and extubated on 01/03/2018. He was subsequently transferred to the medical floor. Critical care was again consulted on 01/07/2018 due to respiratory failure. Patient required pressors for septic shock. He underwent tracheostomy on 01/13/2018. He was subsequently transferred to hospitalist service on 2017. Neuro/Psych: Postop day #14 Bilateral L1-2, L2-3, L3 4, L4 5 decompressive semi-laminectomy, medial facetectomy for spinal canal decompression. Depression/anxiety Ascending myelopathy Spinal abscess C-spine revealed cord compression C2 through C4 and C4 through C6. T-spine 2-3/ 5 6 and lumbar spine T throughout L2 with essentially ablation of the cord from L2 through L5. Status post emergent surgery per Dr. Chakraborty 01/03 Acetaminophen 650 mg p.o. every 6 hours as needed pain 1-5/fever oxycodone and Morphine IV PRN for pain Neurochecks Patient underwent MRI studies today - shows evidence of psoas abscess and possible osteomyelitis. Neurosurgery recommends palliative care/hospice care. Hospice has been consulted. After discussing with patient and partner, will change CODE STATUS to DNR. CV: Dyslipidemia Severe sepsis- resolved. septic shock- resolved. off vasopressors d/c Lasix IV. Currently on atorvastatin 40 mg p.o. daily. Hospital substitution for rosuvastatin 20 mg p.o. daily s/p hydrocortisone stress dose steroids (therapy completed 01/15) Resp: Acute hypoxic hypercarbic respiratory failure- resolving Nebs Wean FiO2 for goal SPO2 greater than 90% OOB to stretcher chair daily PT/OT/Speech therapy GI: Neurogenic ileus- resolving. Acute protein calorie malnutrition- moderate tube feeds. senna/colace, lactulose, miralax, dulcolax supp daily. prn mag citrate if no BM daily. Likely ileus is multifactorial including severe sepsis and postoperative pain, likely compounded by myelopathy and neurogenic component to his ileus Famotidine for GI prophylaxis trend prealbumin weekly : BPH Maintain Peck catheter per urology. have discussed with urology: cannot I/O straight cath for now. recommended changing peck catheter Monthly. Currently on tamsulosin 0.4 mg p.o. daily Recent prostate biopsy. Endo: Sliding scale insulin Accu-Cheks to maintain euglycemia/low regimen Renal: Acute kidney injury- resolved Avoid nephrotoxic drugs Monitor urine output Accurate I's and O's Will start potassium replacement with PO KCL via NG tube. Heme: Thrombocytopenia likely secondary to sepsis- resolved. Anemia secondary to acute blood loss Haptoglobin high. LDH normal. Peripheral smear no signs of schistocytes total bilirubin normal. Status post 2 pack platelets 01/04. Followed by hematology no indication for transfusion ID: Severe Sepsis present on admission (leucocytosis, Tachycardia, source: bacteremia and epidural abscess. E.coli bacteremia high grade E.Coli UTI recent prostate biopsy. PNA aspiration/HCAP Epidural abscess, thoracic and lumbar, C/S E coli C, T, L spine osteomyelitis ID following. Ceftazidime IV for 10 weeks from 01/08/2018. Weekly CBC with diff, CMP, CRP while on IV antibiotics. Repeat imaging may be needed in 4-6 weeks to assess progress. FEN Hypokalemia- resolved Hypernatremia Hypokalemia resolved. Na is 149. Probably 1-2 L of free water deficit. Na 149 --> 151. Will start patient on D5W @ 100cc/hour. Check Na level this afternoon. Discussed with patient's life partner (as stated in the EMR) regarding PEG tube placement as it might be safer than tube feed by NG tube. Life partner agrees with PEG tube placement. Patient also agrees with this plan. Interventional radiology consulted for PEG tube placement - likely PEG Tube placement on 01/24/2018. Access - 01/15 PICC line Peck: keep per urology. change monthly. DNR. Famotidine, SubQ Heparin. Discussed with RN, infectious disease, neurosurgery. Problem Qualifiers (1) Lumbar canal stenosis: Qualified Codes: M48.061 - Spinal stenosis, lumbar region without neurogenic claudication (2) UTI (urinary tract infection): Qualified Codes: N30.00 - Acute cystitis without hematuria (3) Osteoporosis: Qualified Codes: M81.0 - Age-related osteoporosis without current pathological fracture (4) Altered mental status: Qualified Codes: R40.4 - Transient alteration of awareness Dwayne Russell DO Jan 24, 2018 5:17 pm
[2018-01-24] MEDS: TAMSULOSIN HCL 0.4 MG CAP PO SCH (20:37)
[2018-01-25] VITALS (9 sets, daily range): BP systolic 78–106; BP diastolic 48–62; PULSE 55–90; RESP 12–21; TEMP 98.7–100.4; O2SAT 94–98
[2018-01-25] MEDS: ALBUMIN 25% INJ 100 ML IV SCH ×2 (04:00→12:08)
[2018-01-25] MEDS: POTASSIUM PHOSPHATE/SODIUM PHOSPHATE 250 MG TAB PO SCH ×2 (05:37→12:07)
[2018-01-25] MEDS: cefTRIAXone INJ 2,000 MG in SODIUM CHLORIDE 0.9% INJ 100 ML IV SCH (05:37)
[2018-01-25] MEDS: FREE WATER G-TUBE SCH ×2 (05:38→12:09)
[2018-01-25] MEDS: ARTIFICIAL TEARS OPTH SOLN 15 ML BTL EACH EYE SCH ×2 (05:38→14:00)
[2018-01-25] MEDS: HEPARIN SODIUM - SQ 10,000 UNITS/ML VIAL SQ SCH ×2 (05:38→14:00)
[2018-01-25] MEDS: MORPHINE SULFATE 4 MG/ML INJ IV PUSH PRN ×3 (06:22→14:10)
[2018-01-25] MEDS: GABAPENTIN 250 MG/5 ML UDC NG SCH ×2 (08:54→12:07)
[2018-01-25] MEDS: METHOCARBAMOL 500 MG TAB PO SCH ×2 (08:54→12:07)
[2018-01-25] MEDS: ATORVASTATIN 40 MG TAB PO SCH (08:54)
[2018-01-25] MEDS: oxyCODONE HCL ORAL CONC 5 MG/0.25 ML SYRINGE PO PRN (08:54)
[2018-01-25] MEDS: FAMOTIDINE 20 MG TAB PO SCH (08:54)
[2018-01-25] MEDS: POTASSIUM CHLORIDE 20 MEQ PWD PACKET PO SCH (08:55)
[2018-01-25] MEDS: DOCUSATE SODIUM 50 MG/SENNA 8.6 MG TAB PO SCH (08:55)
[2018-01-25] MEDS: SODIUM CHLORIDE 0.9% FLUSH 10 ML FLUSH IV FLUSH SCH (08:55)
[2018-01-25] MEDS: POLYETHYLENE GLYCOL 17 GM PKG PO SCH (08:55)
[2018-01-25] MEDS: LACTULOSE SYRUP 20 GM/30 ML CUP PO SCH (08:55)
[2018-01-25] MEDS: BISACODYL 10 MG SUPP RECTAL SCH (08:56)
[2018-01-25] MEDS: DEXTROSE 5% IN WATE 1000ML INJ 1,000 ML IV SCH (09:00)
[2018-01-25] MEDS ORDERED: LEVS0.124 SL (12:58)
[2018-01-25] MEDS ORDERED: MORP20SO2 SL (12:58)
[2018-01-25] MEDS ORDERED: LORA-392 SL (12:58)
--- NOTE | 2018-01-25 14:47 | HHI.DS ---
Discharge Summary Admission Date Jan 03, 2018 at 1:56 am Discharge Date: Jan 25, 2018 Admitting Diagnosis Cord Compression, Renal Failure, Thrombocytopenia (1) Spinal cord compression ICD Code: G95.20 - Unspecified cord compression (2) Lumbar canal stenosis ICD Code: M48.061 - Spinal stenosis, lumbar region without neurogenic claudication (3) Sepsis ICD Code: A41.9 - Sepsis, unspecified organism (4) UTI (urinary tract infection) ICD Code: N39.0 - Urinary tract infection, site not specified (5) Acute hypoxemic respiratory failure ICD Code: J96.01 - Acute respiratory failure with hypoxia (6) Thrombocytopenia ICD Code: D69.6 - Thrombocytopenia, unspecified (7) VALENCIA (acute kidney injury) ICD Code: N17.9 - Acute kidney failure, unspecified (8) Bacteremia ICD Code: R78.81 - Bacteremia (9) Osteoporosis ICD Code: M81.0 - Age-related osteoporosis without current pathological fracture (10) Altered mental status ICD Code: R41.82 - Altered mental status, unspecified (11) Acute ascending myelitis ICD Code: G04.91 - Myelitis, unspecified (12) Ileus ICD Code: K56.7 - Ileus, unspecified Status: Acute Procedures 01/03/2018 1. Bilateral L1-2, L2-3, L3 4, L4 5 decompressive semi-laminectomy, medial facetectomy for spinal canal decompression. 01/06/2018, 01/07/2018 Procedure number 1. C2-C6 decompressive laminectomy Procedure number 2,Via separate incision: T2-T6 decompressive laminectomy Brief History - From Admission 67-year-old male who underwent a prostate biopsy one week ago, on 12/27/17. On the evening of 12/29/17 he developed fever and chills, low back pain, and lower extremity numbness and paresthesias and muscle spasm. He was seen by his primary care physician and was given medication including muscle relaxant. The symptoms persisted and he returned to his primary care physician on Wednesday, and was given additional medications including Cipro. He awoke on 01/02/2018 with increased lower extremity weakness and numbness, and fell in the shower in the morning, after which he was unable to ambulate or lift his legs off the bed, and continued to experience pain in the lower back. He went to the emergency room at [facility], and was given additional medication injections. He could not lift his legs off the bed or ambulate in the emergency room, and was taken out to his car and lifted into the car and sent home again. He fell in the driveway again trying to get back into the house. He apparently did not urinate for the entire day. He has no complaint of pain which is numbness paresthesias in the upper extremities. No numbness or paresthesias over the chest or abdomen or pelvic region. The MRI of thoracic spine shows severe canal stenosis at T2-3 and T5-6 level with cord compressions, complete or near complete canal obliteration at L2 -3 L3-4 and severe multilevel canal stenosis of the C-spine. The patient is emergently taken to operating room by Dr. Chakraborty. CBC/BMP: 01/23/18 0750 01/23/18 0750 Significant Findings Laboratory Tests Test 01/22/18 17:16 01/23/18 07:50 Sodium Level 150 MEQ/L (136-145) 148 MEQ/L (136-145) White Blood Count 11.2 TH/MM3 (4.0-11.0) Red Blood Count 2.56 MIL/MM3 (4.50-5.90) Hemoglobin 7.7 GM/DL (13.0-17.0) Hematocrit 22.8 % (39.0-51.0) Blood Urea Nitrogen 64 MG/DL (7-18) Creatinine 1.99 MG/DL (0.60-1.30) Random Glucose 151 MG/DL (74-106) Potassium Level 3.2 MEQ/L (3.5-5.1) Carbon Dioxide Level 33.7 MEQ/L (21.0-32.0) Estimat Glomerular Filtration Rate 34 ML/MIN (>89) Imaging Last Impressions Thoracic Spine MRI 01/23/18 0000 Signed Impressions: Service Date/Time: Tuesday, January 23, 2018 14:33 - CONCLUSION: 1. Extensive postsurgical changes with apparent total laminectomies from C3-4 through T7-8. Elongated fluid collection in the surgical bed could represent seroma or abscess. 2. Second fluid collection adjacent to the left hemilaminectomies at T9-10 and T10-11. Similar differential. 3. I believe the lamina at T8-9 remains intact and there is a regional spur resulting in spinal stenosis and some regional cord edema. There appears to be some cord edema at C5-6 as well. Emir Bowles MD Lumbar Spine MRI 01/23/18 0000 Signed Impressions: Service Date/Time: Tuesday, January 23, 2018 14:33 - CONCLUSION: 1. Marked interval worsening in the appearance of the back. There may be a developing epidural abscess anteriorly from L1-2 through L3-4. There may be some abscess developing in the surgical bed in the region of the hemilaminectomies at the same levels on the left. 2. In addition, there may be some extension into the adjacent vertebral bodies with osteomyelitis and discitis. Definite abscesses in the enlarged right psoas muscle. Emir Bowles MD Cervical Spine MRI 01/23/18 0000 Signed Impressions: Service Date/Time: Tuesday, January 23, 2018 14:33 - CONCLUSION: 1. Extensive decompressive laminectomies from C2-3 through C5-6 and successfully restored the spinal canal and relief multilevel high-grade stenosis and cord compromise identified on the previous. 2. Mild to moderate central spinal stenosis at C6- 7 and C7-T1 but no cord or nerve root compromise. Emir Bowles MD Chest X-Ray 01/13/18 0000 Signed Impressions: Service Date/Time: January 17:47 - CONCLUSION: 1. Interval removal of endotracheal tube and placement of tracheostomy tube. 2. Hazy opacity is now noted projected over the left lung. This could represent post erlying fluid. Jorge Luis Puri MD Abdomen X-Ray 01/12/18 0600 Signed Impressions: Service Date/Time: Friday, January 12, 2018 04:57 - CONCLUSION: Mild gaseous distention possibly ileus. Hussein Fontaine MD Thoracic Spine X-Ray 01/08/18 0000 Signed Impressions: Service Date/Time: Sunday, January 07, 2018 21:17 - CONCLUSION: Intraoperative spot images of the thoracic spine for localization purposes. Marcial Redmond MD Lumbar Spine X-Ray 4/7/18 0000 Signed Impressions: Service Date/Time: Sunday, January 07, 2018 21:17 - CONCLUSION: Single intraoperative spot image for localization purposes. Marcial Redmond MD Chest CT 01/06/18 Signed Impressions: Service Date/Time: January 18:51 - CONCLUSION: 1. No abscess identified outside of the thoracic spinal canal. Small bilateral pleural effusions. NG coiled in the stomach. Frederick Rizzo MD Brain MRI 01/06/18 Signed Impressions: Service Date/Time: January 14:23 - CONCLUSION: 1. Negative MRI of the brain with and without contrast. Jagjit Wilkinson MD Abdomen/Pelvis CT 01/06/18 Signed Impressions: Service Date/Time: January 18:51 - CONCLUSION: 1. Multiple laminectomy defects in the lumbar spine with some locules of air both within the canal and within the L2 vertebral body which could be related to infection. Cannot exclude abscess formation within the canal. 2. 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 3. Diffuse ileus. 4. Small effusions and mild anasarca. 5. Peck catheter in decompressed bladder. NG coiled in stomach. Frederick Rizzo MD PE at Discharge GENERAL: Alert, follows commands, Pleasant. SKIN: Warm. HEAD: Normocephalic. EYES: No scleral icterus. No injection or drainage. NECK: Supple, trachea midline. trach in place, no evidence of bleeding. c- collar in place. CARDIOVASCULAR: normal rate, regular rhythm. sinus. No JVD. RESPIRATORY: Equal chest rise. t-piece. no accessory muscle use. GASTROINTESTINAL: Abdomen soft, mildly distended. nontender. no guarding. MUSCULOSKELETAL: well perfused limbs. NEURO EXAM: No movement of lower extremities. Pt update on day of discharge Patient is resting in bed. No acute concerns. Patient's partner is at bedside. Hospital Course Mr. Reeves is a 67 year old male who presented to the emergency department on 01/02/2018 lower extremity numbness and weakness that began on 12/31/2017. Patient underwent prostate biopsy by urology 6 days prior to this admission. Patient tolerated the procedure and was able to go back to work. However within 24-48 hours he started experiencing fever and chills with T-max 10 1F. He went to his primary care physician who treated him with muscle relaxer and discharged home with Flexeril. He went back to his primary care physician and he was sent home on ciprofloxacin. On the day of admission patient fell in the shower due to weakness in his legs and went to [facility]. He received lidocaine patch to his left side of his low back and intramuscular injection of Decadron, Toradol and morphine and also Ativan orally for anxiety. He went home and fell again and was unable to walk. He apparently did not urinate the entire day upon admission MRI of the thoracic spine shows severe canal stenosis at T2-T3 and T5-T6 level with cord compressions complete or near complete canal obliteration at L2-3 and L3-4 and severe multilevel stenosis of the C-spine. Patient was emergently taken to the OR by neurosurgery Dr. Chakraborty. Was managed in the ICU and extubated on 01/03/2018. He was subsequently transferred to the medical floor. Critical care was again consulted on 01/07/2018 due to respiratory failure. Patient required pressors for septic shock. He underwent tracheostomy on 01/13/2018. He was subsequently transferred to hospitalist service on 2017. Patient continued to receive IV abx and other supportive care. Repeat MRI , unfortunately, showed worsening of infection. Neurosurgery recommended palliative care/hospice. 01/25/2018: After discussing with neurosurgery, patient and his partner decided to discuss further with hospice. [facility] accepted patient for home hospice. Patient is being discharged to home hospice today 01/25/2018. Neuro/Psych: Postop day #14 Bilateral L1-2, L2-3, L3 4, L4 5 decompressive semi-laminectomy, medial facetectomy for spinal canal decompression. Depression/anxiety Ascending myelopathy Spinal abscess C-spine revealed cord compression C2 through C4 and C4 through C6. T-spine 2-3/ 5 6 and lumbar spine T throughout L2 with essentially ablation of the cord from L2 through L5. Status post emergent surgery per Dr. Chakraborty 01/03 Acetaminophen 650 mg p.o. every 6 hours as needed pain 1-5/fever oxycodone and Morphine IV PRN for pain Neurochecks Patient underwent MRI studies today - shows evidence of psoas abscess and possible osteomyelitis. Neurosurgery recommends palliative care/hospice care. Hospice has been consulted. After discussing with patient and partner, will change CODE STATUS to DNR. CV: Dyslipidemia Severe sepsis- resolved. septic shock- resolved. off vasopressors d/c Lasix IV. Currently on atorvastatin 40 mg p.o. daily. Hospital substitution for rosuvastatin 20 mg p.o. daily s/p hydrocortisone stress dose steroids (therapy completed 01/15) Resp: Acute hypoxic hypercarbic respiratory failure- resolving Nebs Wean FiO2 for goal SPO2 greater than 90% OOB to stretcher chair daily PT/OT/Speech therapy GI: Neurogenic ileus- resolving. Acute protein calorie malnutrition- moderate tube feeds. senna/colace, lactulose, miralax, dulcolax supp daily. prn mag citrate if no BM daily. Likely ileus is multifactorial including severe sepsis and postoperative pain, likely compounded by myelopathy and neurogenic component to his ileus Famotidine for GI prophylaxis trend prealbumin weekly : BPH Maintain Peck catheter per urology. have discussed with urology: cannot I/O straight cath for now. recommended changing peck catheter Monthly. Currently on tamsulosin 0.4 mg p.o. daily Recent prostate biopsy. Endo: Sliding scale insulin Accu-Cheks to maintain euglycemia/low regimen Renal: Acute kidney injury- resolved Avoid nephrotoxic drugs Monitor urine output Accurate I's and O's Will start potassium replacement with PO KCL via NG tube. Heme: Thrombocytopenia likely secondary to sepsis- resolved. Anemia secondary to acute blood loss Haptoglobin high. LDH normal. Peripheral smear no signs of schistocytes total bilirubin normal. Status post 2 pack platelets /3. Followed by hematology no indication for transfusion ID: Severe Sepsis present on admission (leucocytosis, Tachycardia, source: bacteremia and epidural abscess. E.coli bacteremia high grade E.Coli UTI recent prostate biopsy. PNA aspiration/HCAP Epidural abscess, thoracic and lumbar, C/S E coli C, T, L spine osteomyelitis ID following. Ceftazidime IV for 10 weeks from 01/08/2018. Weekly CBC with diff, CMP, CRP while on IV antibiotics. Repeat imaging may be needed in 4-6 weeks to assess progress. FEN Hypokalemia- resolved Hypernatremia Hypokalemia resolved. Na is 149. Probably 1-2 L of free water deficit. Na 149 --> 151. Will start patient on D5W @ 100cc/hour. Check Na level this afternoon. Discussed with patient's life partner (as stated in the EMR) regarding PEG tube placement as it might be safer than tube feed by NG tube. Life partner agrees with PEG tube placement. Patient also agrees with this plan. Interventional radiology consulted for PEG tube placement - likely PEG Tube placement on 01/24/2018. Access - 01/15 PICC line Peck: keep per urology. change monthly. DNR. Famotidine, SubQ Heparin. Pt Condition on Discharge: Deteriorating Discharge Disposition: Hospice/ Home Discharge Time: > 30 minutes Discharge Instructions DIET: Follow Instructions for: On Tube Feeding Activities you can perform: Regular-No Restrictions New Medications: Hyoscyamine Odt (Levsin-SL) 0.125 Mg Subl 0.125 MG SL Q4H for Gastrointestinal disorders for 14 Days, TAB.SL 0 Refills Lorazepam (Ativan) 0.5 Mg Tab 0.5 MG SL Q4H PRN for For mild anxiety / dyspnea for 14 Days, #84 TAB 0 Refills Morphine Liq (Morphine Liq) 20 Mg/Ml Liq 5 MG SL Q3H PRN for PAIN SCALE 1 TO 5 for 14 Days, ML 0 Refills Give (0.25 ml)for mild pain/shortness of breath Continued Medications: Methocarbamol (Robaxin) 500 Mg Tab 500 MG PO QID for Muscle Spasm, TAB 0 Refills Tamsulosin (Tamsulosin) 0.4 Mg Cap 0.4 MG HS for Manage Prostate Problems, #30 CAP 0 Refills Discontinued Medications: Ciprofloxacin (Ciprofloxacin) 500 Mg Tab 500 MG PO BID for Infection, TAB 0 Refills Hydrocodone-Acetaminophen (Hydrocodone-Acetaminophen) 5-325 mg Tab 1 TAB PO Q4H PRN for PAIN, TAB 0 Refills Meloxicam (Meloxicam) 7.5 Mg Tab 7.5 MG PO BID for Arthritis Pain, TAB 0 Refills Methylprednisolone (Medrol) 4 Mg Tab 4 MG PO DIRECTED, TAB 0 Refills Rosuvastatin (Rosuvastatin) 20 Mg Tab 20 MG PO DAILY for Cholesterol Management, #30 TAB 0 Refills Dwayne Russell DO Jan 25, 2018 2:47 pm
--- NOTE | 2018-01-25 19:32 | HHI.HCPN ---
Reason for visit a. To assist with evaluation and management of symptoms including: pain; dyspnea; paraplegia b. To assist medical decision maker(s) with: better understanding of current medical conditions; weighing benefits/burdens of medical treatment options; making medical treatment decisions. . Subjective/Interval History No significant change overnight. Patient and family have met with personal service representative of [facility] per Henry's choice. They plan to discharge the patient home. I have personally spoken with the [facility] personal service representative and they have reassured me that they will be providing 24 hour care at home. PRN opiates on 01/25/18 included morphine sulfate 4 mg iv x 2 for pain levels of 8 and 5 respectively with good results; oxycodone 10 mg PO x 1 for pain level of 5. No other PRNs needed today. . Advance Directives Living Will: Copy in medical record Health Care Surrogate: Copy in medical record Durable Power of Cash Grain Grower: Completed, but not made available Advance Directive Specifics Date completed: A living will with health care surrogate designation was completed and signed with me present on 01/24/18. They report that the patient's partner -- Harley -- also has Power of Cash Grain Grower. those documents have not been brought it and it is not clear if they include health care POA. . Health Care Surrogate(s): Health care surrogate is male partner -- Henry Eber. . Documented care wishes: Patient has completed a standard Fl living will. He does NOT want life prolonging measures going forward as he has an end stage condition. . Significant change in goals: Patient will be discharged home under hospice care later today. . Objective Vital Signs Date Time Temp Pulse Resp B/P (MAP) Pulse Ox O2 Delivery O2 Flow Rate FiO2 01/25/18 14:00 55 01/25/18 12:00 90 01/25/18 12:00 98.7 90 21 106/62 (77) 98 01/25/18 10:00 84 01/25/18 08:27 94 T-piece 6.00 21 01/25/18 08:00 88 01/25/18 08:00 99.1 88 17 78/48 (58) 98 01/25/18 07:00 99 T-Piece 28 01/25/18 06:00 87 01/25/18 04:00 81 01/25/18 04:00 100.2 86 12 90/55 (67) 97 4/24/18 02:00 83 01/25/18 00:00 88 01/25/18 00:00 100.4 90 19 94/52 (66) 98 01/24/18 22:00 86 01/24/18 20:38 93 T-piece 8.00 21 01/24/18 20:00 100.6 94 15 108/65 (79) 93 01/24/18 20:00 84 . Physical Exam CONSTITUTIONAL/GENERAL: This is an adequately nourished patient with Trach-to-T- tube in an SICU bed. No obvious distress. TUBES/LINES/DRAINS: PICC line RUE; peripheral IV; tracheostomy; peck catheter ; SCDs SKIN: No jaundice, rashes, or lesions. No wounds seen anteriorly. Surgical wounds not examined by me. Skin temperature appropriate. Not diaphoretic. EYES: Pupils equal and round. No scleral icterus. No injection or drainage. Fundi not examined. ENT: Hearing grossly normal. Nose without bleeding or purulent drainage. Throat without visible erythema, exudates, masses, or lesions. NECK: Well healed tracheostomy. Neck brace in place. CARDIOVASCULAR: Regular rate and rhythm without murmurs, gallops, or rubs. No JVD. RESPIRATORY/CHEST: Symmetric, unlabored respirations. Clear to auscultation. Breath sounds equal bilaterally. No wheezes, rales, or rhonchi. Intermittent cough. GASTROINTESTINAL: Abdomen soft, non-tender, nondistended. No hepato-splenomegaly , or palpable masses. No guarding. Bowel sounds present. GENITOURINARY: Without palpable bladder distension. Peck catheter in place. MUSCULOSKELETAL: Extremities without clubbing, cyanosis. 1+ edema in LEs. LYMPHATICS: Not examined. NEUROLOGICAL: No sensation or movement in LEs. Has good gross motor movements in upper extremities (left better than right) but has difficulty with fine motor movements. Follows commands. Cognitively sharp. PSYCHIATRIC: No obvious anxiety/depression. No apparent hallucinations or other psychotic thought process. . Diagnostic Tests Laboratory Laboratory Tests Test 01/23/18 07:50 White Blood Count 11.2 TH/MM3 (4.0-11.0) Red Blood Count 2.56 MIL/MM3 (4.50-5.90) Hemoglobin 7.7 GM/DL (13.0-17.0) Hematocrit 22.8 % (39.0-51.0) Mean Corpuscular Volume 89.2 FL (80.0-100.0) Mean Corpuscular Hemoglobin 30.1 PG (27.0-34.0) Mean Corpuscular Hemoglobin Concent 33.8 % (32.0-36.0) Red Cell Distribution Width 15.6 % (11.6-17.2) Platelet Count 241 TH/MM3 (150-450) Mean Platelet Volume 8.3 FL (7.0-11.0) Blood Urea Nitrogen 64 MG/DL (7-18) Creatinine 1.99 MG/DL (0.60-1.30) Random Glucose 151 MG/DL (74-106) Calcium Level 9.3 MG/DL (8.5-10.1) Sodium Level 148 MEQ/L (136-145) Potassium Level 3.2 MEQ/L (3.5-5.1) Chloride Level 106 MEQ/L (98-107) Carbon Dioxide Level 33.7 MEQ/L (21.0-32.0) Anion Gap 8 MEQ/L (5-15) Estimat Glomerular Filtration Rate 34 ML/MIN (>89) . Result Diagram: 01/23/18 0750 01/23/18 0750 Microbiology Microbiology Date/Time Source Procedure Growth Status 01/05/18 04:00 Blood Peripheral Aerobic Blood Culture - Final NO GROWTH IN 5 DAYS Complete 01/05/18 04:00 Blood Peripheral Anaerobic Blood Culture - Final NO GROWTH IN 5 DAYS Complete 01/08/18 22:22 Sputum Expectorated Sputum Gram Stain - Final Complete 01/08/18 22:22 Sputum Expectorated Sputum Sputum Culture - Final HEAVY GROWTH NORMAL RESPIRATORY JAIME Complete 01/02/18 23:35 Urine Clean Catch Urine Culture - Final Escherichia Coli Complete 01/07/18 22:50 Abscess Back Gram Stain - Final Complete 01/07/18 22:50 Wound Culture - Final Escherichia Coli Complete . Imaging Last Impressions Thoracic Spine MRI 01/23/18 0000 Signed Impressions: Service Date/Time: Tuesday, January 23, 2018 14:33 - CONCLUSION: 1. Extensive postsurgical changes with apparent total laminectomies from C3-4 through T7-8. Elongated fluid collection in the surgical bed could represent seroma or abscess. 2. Second fluid collection adjacent to the left hemilaminectomies at T9-10 and T10-11. Similar differential. 3. I believe the lamina at T8-9 remains intact and there is a regional spur resulting in spinal stenosis and some regional cord edema. There appears to be some cord edema at C5-6 as well. Emir Bowles MD Lumbar Spine MRI 01/23/18 0000 Signed Impressions: Service Date/Time: Tuesday, January 23, 2018 14:33 - CONCLUSION: 1. Marked interval worsening in the appearance of the back. There may be a developing epidural abscess anteriorly from L1-2 through L3-4. There may be some abscess developing in the surgical bed in the region of the hemilaminectomies at the same levels on the left. 2. In addition, there may be some extension into the adjacent vertebral bodies with osteomyelitis and discitis. Definite abscesses in the enlarged right psoas muscle. Emir Bowles MD Cervical Spine MRI 01/23/18 0000 Signed Impressions: Service Date/Time: Tuesday, January 23, 2018 14:33 - CONCLUSION: 1. Extensive decompressive laminectomies from C2-3 through C5-6 and successfully restored the spinal canal and relief multilevel high-grade stenosis and cord compromise identified on the previous. 2. Mild to moderate central spinal stenosis at C6- 7 and C7-T1 but no cord or nerve root compromise. Emir Bowles MD Chest X-Ray 01/13/18 0000 Signed Impressions: Service Date/Time: January 17:47 - CONCLUSION: 1. Interval removal of endotracheal tube and placement of tracheostomy tube. 2. Hazy opacity is now noted projected over the left lung. This could represent post erlying fluid. Jorge Luis Puri MD Abdomen X-Ray 01/12/18 0600 Signed Impressions: Service Date/Time: Friday, January 12, 2018 04:57 - CONCLUSION: Mild gaseous distention possibly ileus. Hussein Fontaine MD Thoracic Spine X-Ray 01/08/18 0000 Signed Impressions: Service Date/Time: Sunday, January 07, 2018 21:17 - CONCLUSION: Intraoperative spot images of the thoracic spine for localization purposes. Marcial Redmond MD Lumbar Spine X-Ray 01/08/18 0000 Signed Impressions: Service Date/Time: Sunday, January 07, 2018 21:17 - CONCLUSION: Single intraoperative spot image for localization purposes. Marcial Redmond MD Chest CT 01/06/18 0000 Signed Impressions: Service Date/Time: January 18:51 - CONCLUSION: 1. No abscess identified outside of the thoracic spinal canal. Small bilateral pleural effusions. NG coiled in the stomach. Frederick Rizzo MD Brain MRI 01/06/18 0000 Signed Impressions: Service Date/Time: January 14:23 - CONCLUSION: 1. Negative MRI of the brain with and without contrast. Jagjit Wilkinson MD Abdomen/Pelvis CT 01/06/18 0000 Signed Impressions: Service Date/Time: January 18:51 - CONCLUSION: 1. Multiple laminectomy defects in the lumbar spine with some locules of air both within the canal and within the L2 vertebral body which could be related to infection. Cannot exclude abscess formation within the canal. 2. 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 3. Diffuse ileus. 4. Small effusions and mild anasarca. 5. Peck catheter in decompressed bladder. NG coiled in stomach. Frederick Rizzo MD . Procedures * Intubation / mechanical ventilation 01/02/18 * Bilateral L1-2, L2-3, L3 4, L4 5 decompressive semi-laminectomy, medial facetectomy for spinal canal decompression. 01/03/18 * Procedure number 1. C2-C6 decompressive laminectomy Procedure number 2, Via separate incision: T2-T6 decompressive laminectomy 01/06/18 * Procedure #1: 1. [id number] decompressive semi-laminectomy, evacuation thoracic epidural abscess 2. Evacuation thoracic epidural abscess. Procedure #2: Via separate incision. 1. Revision L2-3, L3 4, L4 5 decompressive semi-laminectomy 2. Evacuation lumbar epidural absces 3. Evacuation of postoperative lumbar epidural hematoma . 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 He has post- op pain. he has discomfort from trach, peck, vascular access lines. Patient reports that current opioid regimen only brings pain levels down from #9 to #7. Quality of pain is unclear. Movement can make it worse. . (2) Dyspnea 0-10 Scale: 0 Comment: Dyspnea is currently managed with trach to T-tube, suctioning, and nebs which is working adequately. . Pertinent Non-Medical Issues Psychosocial: Well supported by male partner locally. Spiritual: Muslim. Does not belong to a local oly community Legal: Living will and healht care surrogate designation completed 01/24/18 Ethical issues impacting care: Patient is currently capacitated to make his own health care decisions. . Important Contacts * Henry Velázquez (partner and health care surrogate) [phone] * Maurilio Reeves (son) [phone] . Prognosis Per neurosurgery and infections disease, prognosis for any type of neurological improvement is very poor. Infection can't clear without additional surgery and neurosurgery believes patient has little chance of surviving the complex spinal surgery re-construction necessary and if he does survive chances of neurological improvement are minimal. . Code Status: No Code Plan == Code Status: NO CODE per patient's expressed wishes == Decision Making: Patient is capacitated to make his own health care decisions. Should he become incapacitated, his partner -- Henry Velázquez -- is the designated health care surrogate. == Goals of medical treatment : Patient wants to go home. He is enrolling with hospice care later today and will go home with 24 hour hospice care. He will remain DNR at home and not return to hospital. == Symptoms * Pain: Patient has pain from his epidural abscess and myelitis. He has post- op pain. He has discomfort from trach, peck, vascular access lines. Patient reports that current opioid regimen only brings pain levels down from #8-9 to # 7. * Dyspnea: Dyspnea is currently managed with trach to T-tube, suctioning, and nebs which is working adequately. * Paraplegia == Recommendations. * Symptom management at home will be under the auspices of the hospice physician. Recommend that scheduled opiates be increased as patient is wishing to be more comfortable even if sedation is increased. * Should hospice NOT be able to provide 24 hour care at home, patient and partner are aware of hospice care center option. == Given the widespread nature of his spinal infection, it is anticipated that once IV antibiotics are stopped, sepsis and will come in a matter of days. == Palliative care will continue to follow should patient remain in the hospital to assist with symptom management and to further clarify goals of medical treatment as the clinical course evolves. . Attestation To help prompt me to consider important information that might be impacting today's encounter and assessment, information from prior notes written by myself or my colleagues may have been "brought forward" into today's note. My signature on this note, however, is an attestation that I personally performed the exam, history, and/or decision-making noted today, and, unless otherwise indicated, the interactions with patient, family, and staff as well as the review of records all occurred today. I also attest that the listed assessment and stated plan reflect my best clinical judgment today based on the combination of historical information, prior notes, and today's exam/ interactions. When time spent is documented, it refers only to time spent today by the signer, or if indicated, combined time spent today by collaborating physician/nurse practitioner. . Patrice Alan MD Jan 25, 2018 19:32
[2018-01-25] MEDS ORDERED: FAMOTIDINE 20 MG TAB PO SCH (21:00)
== END 2018-01-25 16:26 | disposition hospice, home (50) | DRG 3 ==
LOC: NEPE 21:48 → NEDA 01-03 01:56 → HPAC 01-03 05:28 → N03A 01-03 09:26 → N06A 01-04 21:58 → N03B 01-05 11:33
PROVIDERS: ADMIT Hospitalist; ATTEND Hospitalist
PROC: 01NB0ZZ Release Lumbar Nerve, Open Approach (ICD-10-PCS; 2018-01-03)
PROC: 0T9B70Z Drainage of Bladder with Drainage Device, Via Natural or Artificial Opening (ICD-10-PCS; 2018-01-03)
PROC: 30233R1 Transfusion of Nonautologous Platelets into Peripheral Vein, Percutaneous Approach (ICD-10-PCS; 2018-01-03)
PROC: 5A1955Z Respiratory Ventilation, Greater than 96 Consecutive Hours (ICD-10-PCS; 2018-01-06)
PROC: 00NX0ZZ Release Thoracic Spinal Cord, Open Approach (ICD-10-PCS; 2018-01-06)
PROC: 0BH17EZ Insertion of Endotracheal Airway into Trachea, Via Natural or Artificial Opening (ICD-10-PCS; 2018-01-06)
PROC: 03HY32Z Insertion of Monitoring Device into Upper Artery, Percutaneous Approach (ICD-10-PCS; 2018-01-06)
PROC: 05HF33Z Insertion of Infusion Device into Left Cephalic Vein, Percutaneous Approach (ICD-10-PCS; 2018-01-06)
PROC: 0CJS8ZZ Inspection of Larynx, Via Natural or Artificial Opening Endoscopic (ICD-10-PCS; 2018-01-06)
PROC: 30233N1 Transfusion of Nonautologous Red Blood Cells into Peripheral Vein, Percutaneous Approach (ICD-10-PCS; 2018-01-06)
PROC: 00NW0ZZ Release Cervical Spinal Cord, Open Approach (ICD-10-PCS; principal; 2018-01-06 21:33)
PROC: 00NX0ZZ Release Thoracic Spinal Cord, Open Approach (ICD-10-PCS; 2018-01-07)
PROC: 009U0ZX Drainage of Spinal Canal, Open Approach, Diagnostic (ICD-10-PCS; 2018-01-07)
PROC: 00CU0ZZ Extirpation of Matter from Spinal Canal, Open Approach (ICD-10-PCS; 2018-01-07)
PROC: 01NB0ZZ Release Lumbar Nerve, Open Approach (ICD-10-PCS; 2018-01-07)
PROC: 30233K1 Transfusion of Nonautologous Frozen Plasma into Peripheral Vein, Percutaneous Approach (ICD-10-PCS; 2018-01-07)
PROC: 0B113F4 Bypass Trachea to Cutaneous with Tracheostomy Device, Percutaneous Approach (ICD-10-PCS; 2018-01-13)
PROC: 0BJ08ZZ Inspection of Tracheobronchial Tree, Via Natural or Artificial Opening Endoscopic (ICD-10-PCS; 2018-01-13)
DX: A41.51 Sepsis due to Escherichia coli [E. coli] (principal); R65.21 Severe sepsis with septic shock; G06.1 Intraspinal abscess and granuloma; J69.0 Pneumonitis due to inhalation of food and vomit; G82.50 Quadriplegia, unspecified; G04.91 Myelitis, unspecified; K68.12 Psoas muscle abscess; G95.19 Other vascular myelopathies; J96.01 Acute respiratory failure with hypoxia; J96.02 Acute respiratory failure with hypercapnia; N17.9 Acute kidney failure, unspecified; K56.7 Ileus, unspecified; E87.0 Hyperosmolality and hypernatremia; E87.4 Mixed disorder of acid-base balance; E87.1 Hypo-osmolality and hyponatremia; D62 Acute posthemorrhagic anemia; J98.11 Atelectasis; G83.4 Cauda equina syndrome; M50.01 Cervical disc disorder with myelopathy, high cervical region; M51.04 Intervertebral disc disorders with myelopathy, thoracic region; E44.0 Moderate protein-calorie malnutrition; K91.89 Other postprocedural complications and disorders of digestive system; M46.26 Osteomyelitis of vertebra, lumbar region; N30.00 Acute cystitis without hematuria; E03.9 Hypothyroidism, unspecified; F17.210 Nicotine dependence, cigarettes, uncomplicated; N40.0 Benign prostatic hyperplasia without lower urinary tract symptoms; E86.0 Dehydration; E78.5 Hyperlipidemia, unspecified; F32.9 Major depressive disorder, single episode, unspecified; M48.02 Spinal stenosis, cervical region; M48.04 Spinal stenosis, thoracic region; E78.00 Pure hypercholesterolemia, unspecified; D69.59 Other secondary thrombocytopenia; M48.061 Spinal stenosis, lumbar region without neurogenic claudication; M81.0 Age-related osteoporosis without current pathological fracture; E66.01 Morbid (severe) obesity due to excess calories; F41.9 Anxiety disorder, unspecified; Q63.1 Lobulated, fused and horseshoe kidney; R33.9 Retention of urine, unspecified; E83.39 Other disorders of phosphorus metabolism; E87.6 Hypokalemia; Z66 Do not resuscitate; Y95 Nosocomial condition; Z51.5 Encounter for palliative care; Z68.30 Body mass index [BMI] 30.0-30.9, adult; Z79.899 Other long term (current) drug therapy; Z87.442 Personal history of urinary calculi; W18.2XXA Fall in (into) shower or empty bathtub, initial encounter; Y93.E1 Activity, personal bathing and showering
CPT/HCPCS: 31500; 31600; 36430; 36556; 36569; 36600; 51702; 70553; 71045; 71260; 72020; 72141; 72146; 72148; 72156; 72157; 72158; 74018; 74177; 76000; 76937; 80048; 80053; 80074; 80202; 81001; 82140; 82550; 82552; 82805; 83010; 83605; 83615; 83690; 83735; 83880; 84100; 84132; 84134; 84155; 84295; 84484; 85007; 85014; 85018; 85025; 85027; 85049; 85384; 85610; 85652; 85730; 86140; 86703; 86850; 86900; 86901; 86920; 86927; 87015; 87040; 87070; 87077; 87086; 87102; 87116; 87186; 87205; 87206; 87641; 93005; 93306; 94002; 94003; 94150; 94640; 94664; 96361; 96374; A7521; A9577; A9579; C9290; J0131; J0461; J0690; J0692; J0696; J0713; J1100; J1120; J1230; J1580; J1642; J1644; J1720; J1940; J2212; J2250; J2270; J2370; J2405; J2710; J2765; J3010; J3370; J3475; J3480; J7030; J7040; J7050; J7070; J7120; J7613; L0150; L0172; P9016; P9017; P9035; P9047; Q9967